=== PATIENT | female | born 1960 | race Caucasian/White ===

== ENCOUNTER 2019-05-27 13:36 | Observation (INO) ==
--- NOTE | 2019-05-27 14:12 | XRay Report ---
XR chest 1V portable CLINICAL HISTORY: Chest pain. COMPARISON STUDY: Chest radiograph January 15, 2016. FINDINGS: Lung volumes are normal. Lungs are clear. There is no pneumothorax or pleural effusion. Car diac size is normal. Mediastinal contours are normal. There is no evidence for pulmonary edema. IMPRESSION: No acute cardiopulmonary findings. Electronically signed by: Que Hutchinson M.D. 05/27/2019 2:10 PM
[2019-05-27 14:48] LABS: Alanine Aminotransferase 20 U/L (12-78); Albumin Level 4.1 gm/dl (3.4-5.0); Aspartate Aminotransferase 28 U/L (15-37); BUN Creatinine Ratio 10.7 (10-20); Blood Urea Nitrogen 9 mg/dl (7-18); Carbon Dioxide 23 mmol/L (21-32); Chloride 110 mmol/L (98-107); Creatinine Clr Calc Pharmacy 83.6 ml/min; Est GFR (Non-African American) 83.7; Glucose 95 mg/dl (70-99); Potassium 3.8 mmol/L (3.5-5.1); Sodium 142 mmol/L (136-145)
[2019-05-27 14:51] LABS: Anisocytosis Present; Basophils # (auto) 0.02 K/uL (0-0.2); Basophils % (auto) 0.5 %; Eosinophils # (auto) 0.09 K/uL (0-0.5); Eosinophils % (auto) 2.1 %; Hematocrit (blood only) 32.6 % (37-47); Hemoglobin 10.1 g/dL (12.0-16.0); Immature Granulocytes # (auto) 0.09 K/uL (0.00-0.02); Immature Granulocytes % (auto) 2.1 %; Lymphocytes # (auto) 1.25 K/uL (1.2-3.4); Lymphocytes % (auto) 29.8 %; Mean Corpuscular Volume 92.4 fL (80-100); Mean Platelet Volume 9.1 fL (7.4-10.4); Monocytes # (auto) 0.26 K/uL (0.11-0.59); Monocytes % (auto) 6.2 %; Neutrophils # (auto) 2.48 K/uL (1.4-6.5); Neutrophils % (auto) 59.3 %; Nucleated RBC # (auto) 0.06 K/uL (0-0); Nucleated RBC % (auto) 1.4 %; Platelet Count 64 K/uL (130-400); Platelet Estimate Decreased (Normal); Polychromasia 1+; RDW Coefficient of Variation 21.4 % (11.5-14.5); RDW Standard Deviation 72.5 fL (36.4-46.3); Red Blood Count 3.53 M/uL (4.2-5.4); Tear Drop Cells 1+; White Blood Count 4.19 K/uL (4.8-10.8)
[2019-05-27 14:55] LABS: Alkaline Phosphatase 99 U/L (45-117); Bilirubin,Total 3.9 mg/dl (0.2-1); Globulin 4.3 gm/dl (2.5-4.0); Total Protein 8.4 gm/dl (6.4-8.2); Troponin I < 0.015 ng/ml (0-0.045)
[2019-05-27 14:57] LABS: D Dimer 1000 ug/L FEU (0-500)
[2019-05-27] MEDS ORDERED: OPTIRAY 320 125ml IV PRN (15:25)
--- NOTE | 2019-05-27 15:49 | CT Scan Report ---
CT ANGIOGRAPHY OF THE CHEST, PULMONARY EMBOLUS PROTOCOL CLINICAL HISTORY: +dd and cp ekg change COMPARISON STUDY: Chest radiograph January 15, 2016 and May 27, 2019. TECHNIQUE: Following IV administration of 79 mL of Optiray-320, helical axial images of the chest wer e obtained utilizing the pulmonary embolus protocol. Maximal intensity projections and sagittal and coronal reformats were viewed on an independent 3D workstation. IV contrast was administered without complication. Automated exposure control was utilized for the study. A dose lowering technique was utilized adhering to the principles of ALARA. CT DOSE: 367.52 mGy.cm FINDINGS: No pulmonary emboli are identified. The central pulmonary arteries are mildly dilated. The re is mild dilatation of the right ventricle and apparent straightening of the interventricular septu m. Overall, the heart is mildly enlarged. There is no pericardial effusion. There is no thoracic aort ic dissection. No enlarged thoracic lymph nodes are present. Central airways are patent. No pneumotho rax or pleural effusion is noted. There is suspected mild centrilobular emphysema. Minimal right midd le lobe airspace opacity is noted with mild mucus plugging/bronchial wall thickening. A 3 mm right up per lobe nodule on image 239 of 298 is noted. There is a 4 mm left upper lobe nodule on image 239. Mario Alberto ny thorax is unremarkable. Borderline splenomegaly is noted. IMPRESSION: 1. No pulmonary emboli identified. 2. Mild dilatation of the central pulmonary arteries, mild dilatation of the right heart chambers and apparent straightening of the interventricular septum. These findings raise the possibility of pulmo nary arterial hypertension/elevated right heart pressure. 3. Minimal right middle lobe opacity with mucus plugging/bronchial wall thickening. This may reflect a mild infectious process. 4. A few tiny pulmonary nodules which are likely benign but can be followed according to the attached recommendations. Please refer to below summary of Fleischner criteria recommendations for follow-up of incidental CT n odules ([place], Guidelines for management of small pulmonary nodules detected on CT scans: A sta tement from the Fleischner Society, Radiology 237: [phone].) SOLID NODULES Solitary nodule size: <6 mm * low risk patients: no follow-up needed * high risk patients: optional CT at 12 months Solitary nodule size: 6-8 mm * low risk patients: follow-up at 6-12 months, then consider further follow-up at 18-24 months * high risk patients: initial follow-up CT at 6-12 months and then at 18-24 months if no change Solitary nodule size: >8 mm * either low or high risk patients - consider follow-up CT at 3 months, and/or CT-PET, and/or biopsy Multiple nodules size: <6 mm * low risk patients: no routine follow-up * high risk patients: optional CT at 12 months Multiple nodules size: 6-8 mm * low risk patients: follow-up at 3-6 months, then consider further follow-up at 18-24 months * high risk patients: follow-up at 3-6 months, then at 18-24 months if no change Multiple nodules size: >8 mm * low risk patients: follow-up at 3-6 months, then consider further follow-up at 18-24 months * high risk patients: follow-up at 3-6 months, then at 18-24 months if no change Note: newly detected indeterminate nodule in persons 35 years of age or older. * low risk patients: minimal or absent history of smoking and/or other known risk factors * high risk patients: history of smoking or of other known risk factors (e.g. first degree relative with lung cancer, or exposure to asbestos, radon, uranium) * if a nodule up to 8 mm is partly solid or is ground glass further follow-up is required after 24 m onths to exclude possible slow growing adenocarcinoma (YANIV) SUBSOLID NODULES Solitary pure ground-glass nodule * nodule size <6 mm - no CT follow-up required * nodule size >=6 mm - follow-up CT at 6-12 months, then every 2 years until 5 years Solitary part-solid nodule * nodule size <6 mm - no CT follow-up required * nodule size >=6 mm - follow-up CT at 3-6 months. If unchanged, and solid component remains <6 mm, then annual follow-up for 5 years Multiple subsolid nodules * nodule size <6 mm - follow-up CT at 3-6 months, consider further follow-up at 2 and 4 years if sta ble * nodule size >=6 mm - follow-up CT at 3-6 months, subsequent management based on the most suspiciou s nodule(s) Electronically signed by: Que Hutchinson M.D. 05/27/2019 3:47 PM
[2019-05-27] MEDS ORDERED: LEVOFLOXACIN/D5W 750 MG/150 ML BAG IV SCH (16:00)
--- NOTE | 2019-05-27 17:49 | Emergency Department Note ---
Entered by Armen Allen acting as a scribe for Simón Pitt DO History of Present Illness General Chief complaint: Cardiac Assessment Stated complaint: ABNORMAL EKG Source: patient History of Present Illness Provider complaint: flu like symtpoms Onset (ago): week(s) 1 Location: head Pain Consistency: + intermittent Maximum Pain Intensity: 0 Relieved By: + none Exacerbated By: + none Associated symptoms: + cough, + shortness of breath and + other (rhinorrhea, congestion, sore throat ) The patient is a 58 y/o female with a past medical history of smoking and anemia, who presents to the emergency department for evaluation of intermittent flu like symptoms for the past week. The patient that everything started with a cough about a week ago. She notes that it is not productive. She also has a sore throat, congestion and a runny nose for the past week. She notes that she has been getting slightly more short of breath as his symptoms have worsened slightly. She reports that her grandson had a runny nose and cough and is sick with same symptoms. The patient notes she was sent from [facility] to the ED for EKG concerns as she was seen by the outpatient provider. The patient denies any chest pain arm pain or jaw pain. He had no other previous EKGs to compare to. Home Medications Home Medications Medication Instructions Recorded Confirmed Type aspirin [Guera Aspirin] 325 mg PO DAILY PRN 05/27/19 05/27/19 History levofloxacin [Levaquin] 750 mg PO DAILY 10 Days #10 tab 05/27/19 Rx Allergies Allergy/AdvReac Type Severity Reaction Status Date / Time No Known Allergies Allergy Unverified 05/27/19 14:40 Past Med/Surg History Medical History Anemia Family History Other Hypertension Myocardial infarction Social History Feels Safe at Home: Yes Smoking Status: Current every day smoker Review of Systems See HPI for pertinent positives & negatives. and A total of 10 systems reviewed and were otherwise negative Physical Exam Vital Signs Vital Signs - 24 hr 05/27/19 13:39 05/27/19 14:00 05/27/19 14:01 Temperature 36.8 C Temperature Source Oral Sepsis Recent Fever Within 48 Hours No Sepsis New/Unexplained Change in Mental Status No Sepsis Action Taken by Nursing No Action Required Pulse Rate 88 76 76 Pulse Rate from SpO2 Sensor 76 76 Respiratory Rate 16 18 18 Blood Pressure 154/102 H 130/91 Blood Pressure Mean 119 104 Pulse Oximetry 98 98 98 Oxygen Delivery Method Room Air Room Air 05/27/19 14:30 05/27/19 15:00 05/27/19 15:26 Temperature Temperature Source Sepsis Recent Fever Within 48 Hours Sepsis New/Unexplained Change in Mental Status Sepsis Action Taken by Nursing Pulse Rate 76 70 80 Pulse Rate from SpO2 Sensor 76 71 78 Respiratory Rate 18 18 19 Blood Pressure 121/86 117/88 152/93 H Blood Pressure Mean 97 97 112 Pulse Oximetry 99 99 98 Oxygen Delivery Method 05/27/19 15:30 05/27/19 16:00 05/27/19 16:51 Temperature Temperature Source Sepsis Recent Fever Within 48 Hours Sepsis New/Unexplained Change in Mental Status Sepsis Action Taken by Nursing Pulse Rate 71 72 71 Pulse Rate from SpO2 Sensor 71 72 71 Respiratory Rate 19 19 22 Blood Pressure 132/90 131/88 125/88 Blood Pressure Mean 104 102 100 Pulse Oximetry 99 98 96 Oxygen Delivery Method 05/27/19 17:00 05/27/19 17:30 Temperature Temperature Source Sepsis Recent Fever Within 48 Hours Sepsis New/Unexplained Change in Mental Status Sepsis Action Taken by Nursing Pulse Rate 69 73 Pulse Rate from SpO2 Sensor 70 73 Respiratory Rate 18 18 Blood Pressure 127/90 124/85 Blood Pressure Mean 102 98 Pulse Oximetry 98 98 Oxygen Delivery Method GENERAL: Sitting up in bed, talking in full sentences, alert, well appearing, well nourished, no distress, non-toxic EYE EXAM: normal conjunctiva. OROPHARYNX: no exudate, no erythema, lips, buccal mucosa, and tongue normal and mucous membranes are moist NECK: supple, no nuchal rigidity, no adenopathy, non-tender LUNGS: Clear to auscultation. Normal chest wall mechanics HEART: no murmurs, S1 normal and S2 normal ABDOMEN: abdomen soft, non-tender, normo-active bowel sounds, no masses, no rebound or guarding. BACK: Back is symmetrical on inspection and there is no deformity, no midline tenderness, no CVA tenderness. SKIN: no rashes and no bruising UPPER EXTREMITIES: upper extremities are grossly normal. LOWER EXTREMITIES: No pitting edema. Calves equal bilaterally NEURO EXAM: Normal sensorium, cranial nerves II-XII grossly intact, normal speech, no gross weakness of arms, no gross weakness of legs. Course ED COURSE: Vital signs were reviewed and hypertensive The patients medical record was reviewed The above diagnostic studies were performed and reviewed. ED treatments and interventions as stated above. 1348: The patient was evaluated in room C01. A complete history and physical examination was performed. 1500: Patient was placed in observation. 1609: I spoke with Dr. Tolbert Cardiology. He feels the patient can go home and get an echo as an outpatient. 1621: I update the patient. She notes that her platelets are always low. 1623: I spoke with her Hodan Teetee Hernandez and updated her on the results and treatment plan. 1633: I spoke with the patient and she does not want to stay. 1800: Updated patient at bedside and with her complexity due to EKG changes, pneumonia and now a pancytopenia with a thrombocytopenia 67 recommended adm ission. Based on the patients age, coexisting illnesses, exam and lab findings the decision to treat as an inpatient was made. The patient remained stable while under my care. The patient appeared well at the time of discharge. Administered Medications Levofloxacin/Dextrose (Levaquin/D5w) 750 mg in 150 mls @ 100 mls/hr IV Q24H GEOFF Stop: 05/29/19 15:59 Last Infusion: 05/27/19 18:20 Dose: 0 mls/hr Documented by: [id number] Admin: 05/27/19 16:40 Dose: 100 mls/hr Documented by: [id number] Ioversol (Optiray 320 125ml) 79 ml IV ONCE PRN PRN Reason: Interaction Checking Stop: 05/31/19 15:24 Last Admin: 05/27/19 15:25 Dose: 79 ml Documented by: [id number] Medical Decision Making Differential Diagnosis Differential diagnosis: Etiologies such as infections, reactive airway disease, COPD, pneumonia, pleural effusion, pulmonary edema, ARDS, pneumothorax, CHF, cardiac ischemia, cardiac tamponade, dysrhythmia, anemia, pulmonary embolism, musculoskeletal, gastrointestinal process, as well as others were entertained. Medical Records Attestation: I reviewed the patient's medical records. Home Medications Current Medication List: was personally reviewed by me Laboratory Data Attestation: I reviewed the patient's lab results. Result diagrams: 05/27/19 14:21 05/27/19 14:21 Lab Results 05/27/19 05/27/19 05/27/19 Range/Units 14:21 14:21 14:21 WBC 4.19 L (4.8-10.8) K/uL RBC 3.53 L (4.2-5.4) M/uL Hgb 10.1 L (12.0-16.0) g/dL Hct 32.6 L (37-47) % MCV 92.4 (80-100) fL MCH 28.6 (25-34) pg MCHC 31.0 L (32-36) g/dL RDW Std Deviation 72.5 H (36.4-46.3) fL RDW Coeff of Dalia 21.4 H (11.5-14.5) % Plt Count 64 L (130-400) K/uL MPV 9.1 (7.4-10.4) fL Immature Gran % (Auto) 2.1 % Neut % (Auto) 59.3 % Lymph % (Auto) 29.8 % Preston % (Auto) 6.2 % Eos % (Auto) 2.1 % Baso % (Auto) 0.5 % Immature Gran # (Auto) 0.09 H (0.00-0.02) K/uL Neut # (Auto) 2.48 (1.4-6.5) K/uL Lymph # (Auto) 1.25 (1.2-3.4) K/uL Preston # (Auto) 0.26 (0.11-0.59) K/uL Eos # (Auto) 0.09 (0-0.5) K/uL Baso # (Auto) 0.02 (0-0.2) K/uL Absolute Nucleated RBC 0.06 H (0-0) K/uL Nucleated RBC % (auto) 1.4 % Platelet Estimate Decreased L (Normal) Polychromasia 1+ Anisocytosis Present Tear Drop Cells 1+ D-Dimer 1000 H* (0-500) ug/L FEU Sodium 142 (136-145) mmol/L Potassium 3.8 (3.5-5.1) mmol/L Chloride 110 H (98-107) mmol/L Carbon Dioxide 23 (21-32) mmol/L Anion Gap 9.0 (3-11) BUN 9 (7-18) mg/dl Creatinine 0.79 (0.6-1.2) mg/dl Est Cr Clr Drug Dosing 83.6 ml/min Est GFR ( Amer) 97.0 Est GFR (Non-Af Amer) 83.7 BUN/Creatinine Ratio 10.7 (10-20) Glucose 95 (70-99) mg/dl Calcium 9.0 (8.5-10.1) mg/dl Total Bilirubin 3.9 H (0.2-1) mg/dl AST 28 (15-37) U/L ALT 20 (12-78) U/L Alkaline Phosphatase 99 (45-117) U/L Troponin I < 0.015 (0-0.045) ng/ml Total Protein 8.4 H (6.4-8.2) gm/dl Albumin 4.1 (3.4-5.0) gm/dl Globulin 4.3 H (2.5-4.0) gm/dl Albumin/Globulin Ratio 1.0 (0.9-2) Lipase 185 (73-393) U/L Influenza Type A Ag (Neg) Influenza Type B Ag (Neg) 05/27/19 05/27/19 Range/Units 14:21 16:33 WBC (4.8-10.8) K/uL RBC (4.2-5.4) M/uL Hgb (12.0-16.0) g/dL Hct (37-47) % MCV (80-100) fL MCH (25-34) pg MCHC (32-36) g/dL RDW Std Deviation (36.4-46.3) fL RDW Coeff of Dalia (11.5-14.5) % Plt Count (130-400) K/uL MPV (7.4-10.4) fL Immature Gran % (Auto) % Neut % (Auto) % Lymph % (Auto) % Preston % (Auto) % Eos % (Auto) % Baso % (Auto) % Immature Gran # (Auto) (0.00-0.02) K/uL Neut # (Auto) (1.4-6.5) K/uL Lymph # (Auto) (1.2-3.4) K/uL Preston # (Auto) (0.11-0.59) K/uL Eos # (Auto) (0-0.5) K/uL Baso # (Auto) (0-0.2) K/uL Absolute Nucleated RBC (0-0) K/uL Nucleated RBC % (auto) % Platelet Estimate (Normal) Polychromasia Anisocytosis Tear Drop Cells D-Dimer (0-500) ug/L FEU Sodium (136-145) mmol/L Potassium (3.5-5.1) mmol/L Chloride (98-107) mmol/L Carbon Dioxide (21-32) mmol/L Anion Gap (3-11) BUN (7-18) mg/dl Creatinine (0.6-1.2) mg/dl Est Cr Clr Drug Dosing ml/min Est GFR ( Amer) Est GFR (Non-Af Amer) BUN/Creatinine Ratio (10-20) Glucose (70-99) mg/dl Calcium (8.5-10.1) mg/dl Total Bilirubin (0.2-1) mg/dl AST (15-37) U/L ALT (12-78) U/L Alkaline Phosphatase (45-117) U/L Troponin I < 0.015 (0-0.045) ng/ml Total Protein (6.4-8.2) gm/dl Albumin (3.4-5.0) gm/dl Globulin (2.5-4.0) gm/dl Albumin/Globulin Ratio (0.9-2) Lipase (73-393) U/L Influenza Type A Ag Neg for Influ A (Neg) Influenza Type B Ag Neg for Influ B (Neg) Imaging Data Radiologist's Impression: Radiology results as stated below per my review and the radiologist's interpretation: XR chest 1V portable CLINICAL HISTORY: Chest pain. COMPARISON STUDY: Chest radiograph January 15, 2016. FINDINGS: Lung volumes are normal. Lungs are clear. There is no pneumothorax or pleural effusion. Cardiac size is normal. Mediastinal contours are normal. There is no evidence for pulmonary edema. IMPRESSION: No acute cardiopulmonary findings. Electronically signed by: Que Hutchinson M.D. 05/27/2019 2:[address] ANGIOGRAPHY OF THE CHEST, PULMONARY EMBOLUS PROTOCOL CLINICAL HISTORY: +dd and cp ekg change COMPARISON STUDY: Chest radiograph January 15, 2016 and May 27, 2019. TECHNIQUE: Following IV administration of 79 mL of Optiray-320, helical axial images of the chest were obtained utilizing the pulmonary embolus protocol. Maximal intensity projections and sagittal and coronal reformats were viewed on an independent 3D workstation. IV contrast was administered without complication. Automated exposure control was utilized for the study. A dose lowering technique was utilized adhering to the principles of ALARA. CT DOSE: 367.52 mGy.cm FINDINGS: No pulmonary emboli are identified. The central pulmonary arteries are mildly dilated. There is mild dilatation of the right ventricle and apparent straightening of the interventricular septum. Overall, the heart is mildly enlarged. There is no pericardial effusion. There is no thoracic aortic dissection. No enlarged thoracic lymph nodes are present. Central airways are patent. No pneumothorax or pleural effusion is noted. There is suspected mild centrilobular emphysema. Minimal right middle lobe airspace opacity is noted with mild mucus plugging/bronchial wall thickening. A 3 mm right upper lobe nodule on image 239 of 298 is noted. There is a 4 mm left upper lobe nodule on image 239. Bony thorax is unremarkable. Borderline splenomegaly is noted. IMPRESSION: 1. No pulmonary emboli identified. 2. Mild dilatation of the central pulmonary arteries, mild dilatation of the right heart chambers and apparent straightening of the interventricular septum. These findings raise the possibility of pulmonary arterial hypertension/elevated right heart pressure. 3. Minimal right middle lobe opacity with mucus plugging/bronchial wall thickening. This may reflect a mild infectious process. 4. A few tiny pulmonary nodules which are likely benign but can be followed according to the attached recommendations. Please refer to below summary of Fleischner criteria recommendations for follow- up of incidental CT nodules ([place], Guidelines for management of small pulmonary nodules detected on CT scans: A statement from the Fleischner Society, Radiology 237: [phone].) SOLID NODULES Solitary nodule size: <6 mm * low risk patients: no follow-up needed * high risk patients: optional CT at 12 months Solitary nodule size: 6-8 mm * low risk patients: follow-up at 6-12 months, then consider further follow-up at 18-24 months * high risk patients: initial follow-up CT at 6-12 months and then at 18-24 months if no change Solitary nodule size: >8 mm * either low or high risk patients - consider follow-up CT at 3 months, and/or CT-PET, and/or biopsy Multiple nodules size: <6 mm * low risk patients: no routine follow-up * high risk patients: optional CT at 12 months Multiple nodules size: 6-8 mm * low risk patients: follow-up at 3-6 months, then consider further follow-up at 18-24 months * high risk patients: follow-up at 3-6 months, then at 18-24 months if no change Multiple nodules size: >8 mm * low risk patients: follow-up at 3-6 months, then consider further follow-up at 18-24 months * high risk patients: follow-up at 3-6 months, then at 18-24 months if no change Note: newly detected indeterminate nodule in persons 35 years of age or older. * low risk patients: minimal or absent history of smoking and/or other known risk factors * high risk patients: history of smoking or of other known risk factors (e.g. first degree relative with lung cancer, or exposure to asbestos, radon, uranium) * if a nodule up to 8 mm is partly solid or is ground glass further follow-up is required after 24 months to exclude possible slow growing adenocarcinoma (YANIV) SUBSOLID NODULES Solitary pure ground-glass nodule * nodule size <6 mm - no CT follow-up required * nodule size >=6 mm - follow-up CT at 6-12 months, then every 2 years until 5 years Solitary part-solid nodule * nodule size <6 mm - no CT follow-up required * nodule size >=6 mm - follow-up CT at 3-6 months. If unchanged, and solid com ponent remains <6 mm, then annual follow-up for 5 years Multiple subsolid nodules * nodule size <6 mm - follow-up CT at 3-6 months, consider further follow-up at 2 and 4 years if stable * nodule size >=6 mm - follow-up CT at 3-6 months, subsequent management based on the most suspicious nodule(s) Electronically signed by: Que Hutchinson M.D. 05/27/2019 3:47 PM ECG Data Attestation: I personally reviewed and interpreted this ECG as follows: Indication: other (abnormal EKG) Rate (beats per minute): 80 Rhythm: sinus rhythm Findings: + other (normal axis) and + T-wave inversion (Anterior, inferior, lateral) Comparison ECG Date: no prior available Blood Pressure Blood Pressure Findings: Elevated blood pressure Blood Pressure Disposition: Referred to patients primary care provider CURTIS Narrative Patient is a 58-year-old female with a past medical history of normocytic anemia, thrombocytopenia and splenomegaly. She was seen by outpatient acute care clinic as she was having cough, congestion, runny nose sore throat and felt short of breath. Iliana Smith obtained an EKG and noticed a T WI in the anterior and lateral leads. No old to compare to. Discussed patient having shortness of breath and this EKG with Oscar Garcia who recommended transfer to the ER. Upon presentation to the ER she denies any chest pain. Vitals are stable. IV was established blood work was obtained and showed a mild leukopenia at 4.1 thousand. Hemoglobin was slightly low at 10. There was a thrombocytopenia at 64. D-dimer was positive at 1000. BMP was unremarkable. T bili was elevated at 3.9. No significant transaminitis. Troponin was negative x2. Lipase is unremarkable. Influenza was negative. CT of the chest shows elevated right-sided heart pressures. Right-sided infiltrate as well which was small. Discussed my findings in the EKG with Dr. Lester who noted with the EKG and the CT findings on with a negative troponin patient can follow-up as an outpatient for an echo and does not need to be admitted. Updated the patient at bedside. Reviewed notes of her palliative care nurse practitioner/oncologist who she has seen before in the past it was recommended to have a bone marrow biopsy but she never followed up this past October which she did not. As she does not have a primary care physician having her get in for an echo, repeat blood work and following up with hematology oncology I felt like at this time is a stretch with her pneumonia. Consequently I did discuss case with the hospitalist for observation secondary to pancytopenia with thrombocytopenia of 65, pneumonia and EKG changes and lack of a PCP. Impression & Plan Pneumonia, Abnormal ECG, Thrombocytopenia, Pancytopenia Discharge Plan Visit Data Chief Complaint: Cardiac Assessment Stated Complaint: ABNORMAL EKG ED Provider: Simón Pitt Discharge Problem: Pneumonia, Abnormal ECG, Thrombocytopenia, Pancytopenia Patient Disposition: Home - Self-Care Discharge Instructions Juan Carlos/Other Patient Handouts: ED Pneumonia Activity Restrictions/Additional Instructions: Please follow up with your primary care doctor with in the next 24 hours. Any worsening of your symptoms, please return to the ED immediately. This includes any fevers greater than 100.4, worsening pain, chest pain, shortness breath, persistent nausea, vomiting, unable to eat or drink, or any other concerning signs or symptoms from your standpoint. You are found to have a pancytopenia which included low platelets. This needs to be followed up by hematology oncology as discussed and Hodan Fleming within the next 24 hours. I also discussed with her in having an echo performed as an outpatient as directed by our [employer] here. He will also need to follow-up with hematology oncology due to the the diffuse pancytopenia found. Forms Stand Alone Forms: My [facility], Important Visit Information Prescriptions Prescriptions: New levofloxacin [Levaquin] 750 mg tablet 750 mg PO DAILY 10 Days Qty: 10 RF: 0 No Action aspirin [Guera Aspirin] 325 mg Tablet 325 mg PO DAILY PRN (Reason: Pain) RF: 0 Referrals Referrals: Maxine Kingsley PA-C [Primary Care Provider] - Anthony Ritchie MD [Hospitalist] - Discharge Problem: Pneumonia Qualifiers: Pneumonia type: due to unspecified organism Laterality: unspecified laterality Lung location: unspecified part of lung Qualified Code(s): J18.9 - Pneumonia, unspecified organism The scribe's documentation has been prepared under my direction and personally reviewed by me in its entirety. I confirm that the note above accurately reflects all work, treatment, procedures, and medical decision making performed by me.
--- NOTE | 2019-05-27 20:05 | History & Physical Report ---
Date of Service May 27, 2019 Assessment & Plan (1) Pneumonia: (2) URI, acute: This is a 58 yr of female who has a significant PMH of Anxiety, Anemia, Thrombocytopenia, +GENI who presents to [facility] ED at recommendation of outside provider due to ill feeling and ECG changes. Pt with URI sx and cough x 1-[address] chest concerning for R middle lobe opacity, bronchial wall thickening She is afebrile, wbc 4.19, pt is nontoxic appearing Received IV levaquin 750mg while in ED admit to med/surg tele given concern for ecg changes continue levaquin 750 for possible PNA albuterol neb tx/incentive spirometry recommend follow up CT as outpt given pulm nodules in 12 months further work up as noted below (3) Abnormal ECG: ecg with t wave inversions v3-6 pt w/o chest pain or rise in troponin will cycle troponin obtain echocardiogram in am low index of suspicion for cardiac ischemia (4) Anemia: H/H stable at 10.1 and 32.6 follow no s/sx of bleeding (5) Thrombocytopenia: plt ct 64 not new has seen HEME in past, recommendation was for bone marrow bx given overt pancytopenia check anaplasma given worsening of plt, no confirmed tick bites (6) Elevated bilirubin: Tbili 3.9, direct 0.6 Abd U/S mild enlargement in spleen check retic count, ldh (7) Pulmonary nodules: 3mm RUL; 4mm GILDARDO recommend 12 mon follow up per criteria given high risk (8) Tobacco abuse: defers nicotine patch smoking education advised Disposition: if cardiac work up negative likely discharge on oral antibiotics tomorrow Follow up: recommend routine follow up with PCP Dr. Lund upon discharge, along with follow up Heme Onc Discussed with patient importance to follow up with HEME and their recommendations for bone marrow bx given anemia, thrombocytopenia and now likely overt pancytopenia Further encouraged patient to partake in routine cancer screenings with colonoscopy and mammogram which have not been done. Patient was seen and examined in collaboration with Dr. Browne, please see addendum History of Present Illness Chief Complaint: URI sx x 1 week Primary Care Provider: Maxine Kingsley PA-C This is a 58 yr of female who has a significant PMH of Anxiety, Anemia, Thrombocytopenia, +GENI who presents to [facility] ED at recommendation of outside provider due to ill feeling and ECG changes. Pt PCP is Love Lund; however she has not been seen for routine follow ups, but mostly acute care. She was seen today by CLARIBEL 2/2 sinus congestion, cough, AGUILAR, pain in upper back feeling feverish x 1 week. At this visit an ecg was performed which revealed t wave inversions V3-6 and was recommended to seek ED for evaluation. Currently patient is sitting at bedside and is present. She complains of having sinus congestion with purulent discharge, sore throat, moist cough but unable to produce, shortness with exertion x1 week. She has intermittent feeling of being feverish and chills but has not checked her temperature. History of pneumonia, "every 3 to 4 years." Denies any lightheadedness, dizziness, syncope, but does elicit to getting off and on vertigo. Denies any rylan chest pain, palpitations, hemoptysis, shortness with at rest, nausea, vomiting, diarrhea, melena, hematochezia, dysuria, increased urgency or frequency with urination, hematuria, vaginal bleeding. Patient is menopausal and has not had any post menopausal bleeding. Of significance patient has not had any significant or consistent routine primary care follow-up. She does have a known anemia and pancytopenia in which she has been seen by Dr. Gonzalez in September 2018. Recommend bone marrow bx, colonoscopy and mammogram for appropriate screening. Pt has not followed up with this. Also seen by rheumatology due to complaints of fatigue and arthralgias along with + GENI. [place] not likely to be related to rheumatologic process abnormal testing was supporting scleroderma diagnosis but pt without symptoms consistent with this. Was deferred back to hematology but lost to follow up. Allergies Allergy/AdvReac Type Severity Reaction Status Date / Time No Known Allergies Allergy Unverified 05/27/19 14:40 Home Medications Home Medications Medication Instructions Recorded Confirmed Type aspirin [Guera Aspirin] 325 mg PO DAILY PRN 05/27/19 05/27/19 History levofloxacin [Levaquin] 750 mg PO DAILY 10 Days #10 tab 05/27/19 Rx Past Med/Surg History Medical History Tobacco abuse Thrombocytopenia Pulmonary nodules Anxiety Anemia Surgical History History of tubal ligation History of D&C Family History Mother Alzheimer disease Coronary heart disease CABG in 70s Father Coronary heart disease CABG in 70s Other Hypertension Myocardial infarction Social History Preferred Language: Chadian Communication Ability: Effective marital status: Current Living Situation: Spouse Feels Safe at Home: Yes Smoking Status: Current every day smoker packs per day: 10 ; Years Smoked: 20 ; Hx Alcohol Use: No Hx Substance Use: No Review of Systems Review of Systems: All systems reviewed & are unremarkable except as noted in HPI & below Physical Exam Physical Exam: Constitutional: WD/WN, vitals as above, NAD, sitting up in bed, pleasant, conversing easily Head: Normocephalic, Atraumatic Eyes: PERRL, conjunctivae normal, anicteric sclerae ENMT: external ear and nose normal, oropharynx normal Neck: trachea midline, no thyromegaly normal visual inspection Respiratory: normal respiratory effort, lungs clear to auscultation, no wheeze, rales, rhonchi. Normal insp/exp effort, no accessory muscle use Cardiovascular: RRR, no murmur, no edema Vessels: no JVD or carotid bruit Chest: normal inspection of chest Abdomen: normal bowel sounds, soft, nontender, no hepatosplenomegaly Musculoskeletal: no cyanosis or clubbing, extremities motor strength 5/5 Skin: no rashes, warm and dry normal turgor Neurologic: PERRL, EOMI, accommodation nl, no face palsy, no dysarthria CN's II-XI intact bilaterally and moves all extremities Psychiatric: A+Ox3, euthymic affect Lymphatic: no cervical or axillary lymphadenopathy : deferred Results & Data Vital Signs (Past 12 Hours) Vital Signs Temp Pulse Resp BP Pulse Ox 05/27/19 19:00 74 19 154/95 H 97 05/27/19 18:30 76 18 147/98 H 99 05/27/19 18:00 72 14 117/87 98 05/27/19 17:30 73 18 124/85 98 05/27/19 17:00 69 18 127/90 98 05/27/19 16:51 71 22 125/88 96 05/27/19 16:00 72 19 131/88 98 05/27/19 15:30 71 19 132/90 99 05/27/19 15:26 80 19 152/93 H 98 05/27/19 15:00 70 18 117/88 99 05/27/19 14:30 76 18 121/86 99 05/27/19 14:01 76 18 130/91 98 05/27/19 14:00 76 18 98 05/27/19 13:39 36.8 C 88 16 154/102 H 98 Laboratory Results Short CBC 05/27/19 Range/Units 14:21 WBC 4.19 L (4.8-10.8) K/uL Hgb 10.1 L (12.0-16.0) g/dL Hct 32.6 L (37-47) % Plt Count 64 L (130-400) K/uL BMP 05/27/19 14:21 Sodium 142 Potassium 3.8 Chloride 110 H Carbon Dioxide 23 BUN 9 Creatinine 0.79 Glucose 95 Calcium 9.0 Cardiac Enzymes 05/27/19 05/27/19 Range/Units 14:21 16:33 Troponin I < 0.015 < 0.015 (0-0.045) ng/ml Liver Function 05/27/19 05/27/19 Range/Units 14:21 14:21 Total Bilirubin 3.9 H (0.2-1) mg/dl Direct Bilirubin 0.6 H (0-0.2) mg/dl AST 28 (15-37) U/L ALT 20 (12-78) U/L Alkaline Phosphatase 99 (45-117) U/L Albumin 4.1 (3.4-5.0) gm/dl Diagnostic Findings Chest CTA: IMPRESSION: 1. No pulmonary emboli identified. 2. Mild dilatation of the central pulmonary arteries, mild dilatation of the right heart chambers and apparent straightening of the interventricular septum. These findings raise the possibility of pulmonary arterial hypertension/elevated right heart pressure. 3. Minimal right middle lobe opacity with mucus plugging/bronchial wall thickening. This may reflect a mild infectious process. 4. A few tiny pulmonary nodules which are likely benign but can be followed according to the attached recommendations. CXR: IMPRESSION: No acute cardiopulmonary findings. RUQ U/S IMPRESSION: 1. No cholelithiasis or biliary ductal dilatation. 2. Mild splenomegaly. 3. Possible left pleural effusion. Medications Administered Levofloxacin/Dextrose (Levaquin/D5w) 750 mg in 150 mls @ 100 mls/hr IV Q24H GEOFF Stop: 05/29/19 15:59 Last Infusion: 05/27/19 18:20 Dose: 0 mls/hr Documented by: [id number] Admin: 05/27/19 16:40 Dose: 100 mls/hr Documented by: [id number] Ioversol (Optiray 320 125ml) 79 ml IV ONCE PRN PRN Reason: Interaction Checking Stop: 05/31/19 15:24 Last Admin: 05/27/19 15:25 Dose: 79 ml Documented by: [id number] ECG Rate (beats per minute): 80 Rhythm: normal sinus Findings: + T-wave inversion (V3-6) Code Status & VTE Plan Code Status Full Code VTE Prophylaxis Plan VTE Prophylaxis will be ordered: No Supervising Physician Co-Signing Physician Notes I have seen and assessed the patient with physician clinical education assistant and agree with the assessment and plan as above and would like to comment that Patient has been placed under observation after experiencing respiratory symptoms for which she was evaluated at outpatient center and then because of abnormal EKG findings she was sent to the ER and patient was told by outpatient center that she wa sat risk of "heart attack" however patient denies chest pain, and when evaluated by the emergency room physician, the emergency room physicia n concerned for abnormal EKG and suspected pneumonia in context of thrombocytopenia that ED physician recommended to patient hospitalization. On exam General: no acute distress Lungs: clear to auscultation bilaterally Heart: regular rate and rhythm Abdomen: soft, nontender, positive bowel sounds Extremities: no edema The role of this observation stay mostly to rule acute acute or chronic myocard ial infarction given abnormal T waves seen in anterior lateral leads. Troponins to be trended to rule out acute cardiac event and echocardiogram can be done to assess overall ejection fraction and rule out wall motion abnormalities. The CTA chest on this presentation show the possibility of pulmonary arterial hypertension/elevated right heart pressure and this can be better assessed by echocardiogram. There is Minimal right middle lobe opacity with mucus plugging/bronchial wall thickening and this may reflect a mild infectious (pulmonary) process such as pneumonia. Continue oral antibiotic as no large focal lung consolidations. There are A few tiny pulmonary nodules which are 3 to 4 mm in size and because of patient's history of tobacco use,s he may benefit from CT scan in 1 year however the CTA impressions deem these nodules to be likely benign. Chart review shows that patient has history of low platelet counts and her thrombocytopenia which is unusual does not appear to be acutely dangerous. abdomen imaging does not reveal acute process for elevated bilirubin otherwise agree with assessment and plan as documented by physician clinical education assistant for medical issues Patient will be followed by my colleague Dr. Sheppard starting on 05/28/19 (1) Pneumonia Laterality: unspecified laterality Lung location: unspecified part of lung Pneumonia type: due to unspecified organism Qualified Code(s): J18.9 - Pneumonia, unspecified organism
--- NOTE | 2019-05-27 20:19 | Ultrasound Report ---
US abdomen limited CLINICAL HISTORY: 58 years-old Female presenting with anemia, elevated bili - look at Liver and Splee n. TECHNIQUE: Real-time grayscale and limited color Doppler ultrasound imaging of the abdomen limited to the right upper quadrant was performed. COMPARISON: Correlation made to chest x-ray performed earlier the same day.. FINDINGS: Pancreas: Visualized portions of the pancreatic head and body normal. Liver: Normal echogenicity and echotexture. The liver measures 14.2 cm in maximal sagittal dimension. No sonographic evidence of hepatic mass. Main portal vein patent with normal directional flow. Biliary: No intrahepatic biliary ductal dilatation. Common bile duct measures up to 3 mm in diameter. Gallbladder: No evidence of gallstones, gallbladder wall thickening, gallbladder distention, or peric holecystic fluid or inflammatory change. Sonographic Copeland's sign negative. Right kidney: Normal in appearance without evidence of hydronephrosis. Ascites: None. Other: Mild enlargement of the spleen, which measures 14 cm in maximal sagittal dimension. Possible l eft pleural effusion. IMPRESSION: 1. No cholelithiasis or biliary ductal dilatation. 2. Mild splenomegaly. 3. Possible left pleural effusion. Electronically signed by: Emiliano Terry M.D. 05/27/2019 8:18 PM
[2019-05-27 20:57] LABS: Reticulocyte % 3.1 % (0.5-2.0); Reticulocytes # 0.11 10^6/uL (0.02-0.10)
[2019-05-27] MEDS ORDERED: MAGNESIUM HYDROXIDE SUSP 30 ML UDC PO PRN (20:59)
[2019-05-27] MEDS ORDERED: ACETAMINOPHEN 325 MG TAB PO PRN (20:59)
[2019-05-27] MEDS ORDERED: ALUMINUM/MAGNESIUM SUSP 30 ML UDC PO PRN (20:59)
[2019-05-27] MEDS ORDERED: POLYETHYLENE (MIRALAX) 17 GM PACK PO PRN (20:59)
[2019-05-27] MEDS ORDERED: NITROGLYCERIN SL 0.4 MG/TAB TAB SL PRN (20:59)
[2019-05-27] MEDS: ALBUTEROL 0.083% NEBU SOLN 3 ML VIAL NEB SCH (21:39)
[2019-05-28 02:19] LABS: Hemoglobin 9.4 g/dL (12.0-16.0); Mean Corpuscular Hgb Conc 31.3 g/dL (32-36); Mean Corpuscular Volume 93.5 fL (80-100); Nucleated RBC # (auto) 0.09 K/uL (0-0); Nucleated RBC % (auto) 2.4 %; RDW Coefficient of Variation 21.3 % (11.5-14.5); RDW Standard Deviation 72.8 fL (36.4-46.3); Red Blood Count 3.21 M/uL (4.2-5.4); White Blood Count 3.79 K/uL (4.8-10.8)
[2019-05-28 02:24] LABS: Mean Platelet Volume 8.8 fL (7.4-10.4); Platelet Count 54 K/uL (130-400)
[2019-05-28 02:37] LABS: Alanine Aminotransferase 18 U/L (12-78); Albumin Level 3.5 gm/dl (3.4-5.0); Aspartate Aminotransferase 24 U/L (15-37); BUN Creatinine Ratio 12.6 (10-20); Blood Urea Nitrogen 13 mg/dl (7-18); Calcium 8.4 mg/dl (8.5-10.1); Carbon Dioxide 24 mmol/L (21-32); Chloride 109 mmol/L (98-107); Creatinine Clr Calc Pharmacy 62.9 ml/min; Est GFR (African American) 68.8; Est GFR (Non-African American) 59.3; Glucose 93 mg/dl (70-99); Potassium 4.1 mmol/L (3.5-5.1); Sodium 141 mmol/L (136-145)
[2019-05-28 02:44] LABS: Albumin Globulin Ratio 0.9 (0.9-2); Alkaline Phosphatase 81 U/L (45-117); Bilirubin,Total 3.1 mg/dl (0.2-1); Chol HDL Ratio 6; Cholesterol 177 mg/dl (0-200); Globulin 3.8 gm/dl (2.5-4.0); HDL Cholesterol 31 mg/dl; LDL Cholesterol Calculated 95 mg/dl; Total Protein 7.3 gm/dl (6.4-8.2); Triglycerides 253 mg/dl (0-150); Troponin I < 0.015 ng/ml (0-0.045); VLDL Cholesterol 51 mg/dl
[2019-05-28 05:56] LABS: Estimated Average Glucose 97 mg/dl
[2019-05-28] MEDS: ALBUTEROL 0.083% NEBU SOLN 3 ML VIAL NEB SCH ×2 (07:18→13:26)
[2019-05-28] MEDS ORDERED: levoFLOXacin 750 MG TAB PO SCH (11:00)
--- NOTE | 2019-05-28 16:54 | Hospitalist Progress Note ---
Date of Service May 28, 2019 Assessment & Plan (1) Pneumonia: (2) URI, acute: Was seen at PCP office for URI and Was sent to the hospital for abnormal EKG that was done in the office CT chest concerning for R middle lobe opacity, bronchial wall thickening Afebrile and no leukocytosis Received IV levaquin 750mg while in ED Will complete the course of levaquin Continue albuterol neb tx/incentive spirometry Recommend follow up CT as outpt given pulm nodules in 12 months Clinically stable (3) Abnormal ECG: Was done from PCP office Denies any history of chest pain Troponin x 3 negative ECHO showed no wall motion abnormality with EF 55-60% Clinically stable (4) Anemia: Hgb 9.4 today no s/sx of bleeding Will need to monitor cbc Will need outpatient workup (5) Thrombocytopenia: Platelet 64 today Has seen HEME in past, recommendation was for bone marrow bx given overt pancytopenia Peripheral smear showed blast and schistocytes, no inclusion anaplasmosis Follow up with oncology Monitor CBC (6) Elevated bilirubin: Abd U/S showed no cholelithiasis or biliary ductal dilatation. Bilirubin slightly decreased AST/ALT and ALK normal Continue monitor (7) Pulmonary nodules: 3mm RUL; 4mm GILDARDO Recommend 12 months follow up per criteria given high risk (8) Tobacco abuse: Counseling on smoking cessation Disposition Follow up with hematology Follow up with your primary care provider (already had an appointment for Friday Further encouraged patient to do routine cancer screenings with colonoscopy and mammogram which have not been done. Subjective Pt was seen and examined Sitting at the edge of the bed with at bedside She said that she feels fine She is very anxious to go home today She said that she does not have any chest pain She said that she feels less congested Denies any chest pain, palpitation and SOB Physical Exam Physical Exam: General- No acute distress Head- atraumatic Eyes- PERRL, EOMI, ENT- oropharynx clear Neck- supple, no JVD Lungs- clear to auscultation Heart- regular rhythm; no murmur Abdomen- normal bowel sounds, soft, nontender Extremities- no calf tenderness Neuro- alert, oriented x 3; PERRL, EOMI; no facial palsy; no dysarthria Skin- warm & dry Results & Data Vital Signs (Past 12 Hours) Vital Signs Temp Pulse Pulse Resp BP Pulse Ox 05/28/19 15:38 36.8 C 82 18 119/80 93 05/28/19 13:26 78 16 96 05/28/19 12:08 37.1 C 67 16 112/77 97 05/28/19 08:01 36.7 C 62 16 104/70 98 05/28/19 07:20 66 05/28/19 07:19 81 16 98 (1) Pneumonia Laterality: unspecified laterality Lung location: unspecified part of lung Pneumonia type: due to unspecified organism Qualified Code(s): J18.9 - Pneumonia, unspecified organism
--- NOTE | 2019-05-29 08:47 | Discharge Summary ---
Date of Service May 28, 2019 Admission HPI Per Admitting Provider This is a 58 yr of female who has a significant PMH of Anxiety, Anemia, Thrombocytopenia, +GENI who presents to [facility] ED at recommendation of outside provider due to ill feeling and ECG changes. Pt PCP is Love Lund; however she has not been seen for routine follow ups, but mostly acute care. She was seen today by PA-C 2/2 sinus congestion, cough, AGUILAR, pain in upper back feeling feverish x 1 week. At this visit an ecg was performed which revealed t wave inversions V3-6 and was recommended to seek ED for evaluation. Currently patient is sitting at bedside and is present. She complains of having sinus congestion with purulent discharge, sore throat, moist cough but unable to produce, shortness with exertion x1 week. She has intermittent feeling of being feverish and chills but has not checked her temperature. History of pneumonia, "every 3 to 4 years." Denies any lightheadedness, dizziness, syncope, but does elicit to getting off and on vertigo. Denies any rylan chest pain, palpitations, hemoptysis, shortness with at rest, nausea, vomiting, diarrhea, melena, hematochezia, dysuria, increased urgency or frequency with urination, hematuria, vaginal bleeding. Patient is menopausal and has not had any post menopausal bleeding. Of significance patient has not had any significant or consistent routine primary care follow-up. She does have a known anemia and pancytopenia in which she has been seen by Dr. Gonzalez in September 2018. Recommend bone marrow bx, colonoscopy and mammogram for appropriate screening. Pt has not followed up with this. Also seen by rheumatology due to complaints of fatigue and arthralgias along with + GENI. [place] not likely to be related to rheumatologic process abnormal testing was supporting scleroderma diagnosis but pt without symptoms consistent with this. Was deferred back to hematology but lost to follow up. Admission Exam Per Admitting Provider Constitutional: WD/WN, vitals as above, NAD, sitting up in bed, pleasant, conversing easily Head: Normocephalic, Atraumatic Eyes: PERRL, conjunctivae normal, anicteric sclerae ENMT: external ear and nose normal, oropharynx normal Neck: trachea midline, no thyromegaly normal visual inspection Respiratory: normal respiratory effort, lungs clear to auscultation, no wheeze, rales, rhonchi. Normal insp/exp effort, no accessory muscle use Cardiovascular: RRR, no murmur, no edema Vessels: no JVD or carotid bruit Chest: normal inspection of chest Abdomen: normal bowel sounds, soft, nontender, no hepatosplenomegaly Musculoskeletal: no cyanosis or clubbing, extremities motor strength 5/5 Skin: no rashes, warm and dry normal turgor Neurologic: PERRL, EOMI, accommodation nl, no face palsy, no dysarthria CN's II-XI intact bilaterally and moves all extremities Psychiatric: A+Ox3, euthymic affect Lymphatic: no cervical or axillary lymphadenopathy : deferred Principal Diagnosis Upper respiratory infection Pulmonary nodule abnormal EKG Anemia Thrombocytopenia Tobacco abuse Discharge Exam General- No acute distress Head- atraumatic Eyes- PERRL, EOMI, ENT- oropharynx clear Neck- supple, no JVD Lungs- clear to auscultation Heart- regular rhythm; no murmur Abdomen- normal bowel sounds, soft, nontender Extremities- no calf tenderness Neuro- alert, oriented x 3; PERRL, EOMI; no facial palsy; no dysarthria Skin- warm & dry Discharge Data Allergies Allergy/AdvReac Type Severity Reaction Status Date / Time No Known Allergies Allergy Unverified 05/27/19 14:40 Consultations 05/27/19 18:43 ED Decision to Admit Stat Ordered Studies 05/27/19 15:08 CT angio chest PE protocol Stat 05/27/19 19:32 US abdomen limited Routine US abdomen limited CLINICAL HISTORY: 58 years-old Female presenting with anemia, elevated bili - look at Liver and Spleen. TECHNIQUE: Real-time grayscale and limited color Doppler ultrasound imaging of the abdomen limited to the right upper quadrant was performed. COMPARISON: Correlation made to chest x-ray performed earlier the same day.. FINDINGS: Pancreas: Visualized portions of the pancreatic head and body normal. Liver: Normal echogenicity and echotexture. The liver measures 14.2 cm in maximal sagittal dimension. No sonographic evidence of hepatic mass. Main portal vein patent with normal directional flow. Biliary: No intrahepatic biliary ductal dilatation. Common bile duct measures up to 3 mm in diameter. Gallbladder: No evidence of gallstones, gallbladder wall thickening, gallbladder distention, or pericholecystic fluid or inflammatory change. Sonographic Copeland's sign negative. Right kidney: Normal in appearance without evidence of hydronephrosis. Ascites: None. Other: Mild enlargement of the spleen, which measures 14 cm in maximal sagittal dimension. Possible left pleural effusion. IMPRESSION: 1. No cholelithiasis or biliary ductal dilatation. 2. Mild splenomegaly. 3. Possible left pleural effusion. Electronically signed by: Emiliano Terry M.D. 05/27/2019 8:18 PM Dictated: 05/27/192015 Transcribed: 05/27/192015 CT ANGIOGRAPHY OF THE CHEST, PULMONARY EMBOLUS PROTOCOL CLINICAL HISTORY: +dd and cp ekg change COMPARISON STUDY: Chest radiograph January 15, 2016 and May 27, 2019. TECHNIQUE: Following IV administration of 79 mL of Optiray-320, helical axial images of the chest were obtained utilizing the pulmonary embolus protocol. Maximal intensity projections and sagittal and coronal reformats were viewed on an independent 3D workstation. IV contrast was administered without complication. Automated exposure control was utilized for the study. A dose lowering technique was utilized adhering to the principles of ALARA. CT DOSE: 367.52 mGy.cm FINDINGS: No pulmonary emboli are identified. The central pulmonary arteries are mildly dilated. There is mild dilatation of the right ventricle and apparent straightening of the interventricular septum. Overall, the heart is mildly enlarged. There is no pericardial effusion. There is no thoracic aortic dissection. No enlarged thoracic lymph nodes are present. Central airways are patent. No pneumothorax or pleural effusion is noted. There is suspected mild centrilobular emphysema. Minimal right middle lobe airspace opacity is noted with mild mucus plugging/bronchial wall thickening. A 3 mm right upper lobe nodule on image 239 of 298 is noted. There is a 4 mm left upper lobe nodule on image 239. Bony thorax is unremarkable. Borderline splenomegaly is noted. IMPRESSION: 1. No pulmonary emboli identified. 2. Mild dilatation of the central pulmonary arteries, mild dilatation of the right heart chambers and apparent straightening of the interventricular septum. These findings raise the possibility of pulmonary arterial hypertension/elevated right heart pressure. 3. Minimal right middle lobe opacity with mucus plugging/bronchial wall thickening. This may reflect a mild infectious process. 4. A few tiny pulmonary nodules which are likely benign but can be followed according to the attached recommendations. Please refer to below summary of Fleischner criteria recommendations for follow- up of incidental CT nodules ([place], Guidelines for management of small pulmonary nodules detected on CT scans: A statement from the Fleischner Society, Radiology 237: [phone].) SOLID NODULES Solitary nodule size: <6 mm * low risk patients: no follow-up needed * high risk patients: optional CT at 12 months Solitary nodule size: 6-8 mm * low risk patients: follow-up at 6-12 months, then consider further follow-up at 18-24 months * high risk patients: initial follow-up CT at 6-12 months and then at 18-24 months if no change Solitary nodule size: >8 mm * either low or high risk patients - consider follow-up CT at 3 months, and/or CT-PET, and/or biopsy Multiple nodules size: <6 mm * low risk patients: no routine follow-up * high risk patients: optional CT at 12 months Multiple nodules size: 6-8 mm * low risk patients: follow-up at 3-6 months, then consider further follow-up at 18-24 months * high risk patients: follow-up at 3-6 months, then at 18-24 months if no change Multiple nodules size: >8 mm * low risk patients: follow-up at 3-6 months, then consider further follow-up at 18-24 months * high risk patients: follow-up at 3-6 months, then at 18-24 months if no change Note: newly detected indeterminate nodule in persons 35 years of age or older. * low risk patients: minimal or absent history of smoking and/or other known risk factors * high risk patients: history of smoking or of other known risk factors (e.g. first degree relative with lung cancer, or exposure to asbestos, radon, uranium) * if a nodule up to 8 mm is partly solid or is ground glass further follow-up is required after 24 months to exclude possible slow growing adenocarcinoma (YANIV) SUBSOLID NODULES Solitary pure ground-glass nodule * nodule size <6 mm - no CT follow-up required * nodule size >=6 mm - follow-up CT at 6-12 months, then every 2 years until 5 years Solitary part-solid nodule * nodule size <6 mm - no CT follow-up required * nodule size >=6 mm - follow-up CT at 3-6 months. If unchanged, and solid component remains <6 mm, then annual follow-up for 5 years Multiple subsolid nodules * nodule size <6 mm - follow-up CT at 3-6 months, consider further follow-up at 2 and 4 years if stable * nodule size >=6 mm - follow-up CT at 3-6 months, subsequent management based on the most suspicious nodule(s) Electronically signed by: Que Huthcinson M.D. 05/27/2019 3:47 PM Dictated: 05/27/19 1536 XR chest 1V portable CLINICAL HISTORY: Chest pain. COMPARISON STUDY: Chest radiograph January 15, 2016. FINDINGS: Lung volumes are normal. Lungs are clear. There is no pneumothorax or pleural effusion. Cardiac size is normal. Mediastinal contours are normal. There is no evidence for pulmonary edema. IMPRESSION: No acute cardiopulmonary findings. Electronically signed by: Que Hutchinson M.D. 05/27/2019 2:10 PM Dictated: 05/27/19 1410 Transcribed: 05/27/19 1410 Hospital Course (1) Pneumonia: (2) URI, acute: Was seen at PCP office for URI and Was sent to the hospital for abnormal EKG that was done in the office CT chest concerning for R middle lobe opacity, bronchial wall thickening Afebrile and no leukocytosis Received IV levaquin 750mg while in ED Will complete the course of levaquin Continue albuterol neb tx/incentive spirometry Recommend follow up CT as outpt given pulm nodules in 12 months Clinically stable (3) Abnormal ECG: Was done from PCP office Denies any history of chest pain Troponin x 3 negative ECHO showed no wall motion abnormality with EF 55-60% Clinically stable (4) Anemia: Hgb 9.4 today no s/sx of bleeding Will need to monitor cbc Will need outpatient workup (5) Thrombocytopenia: Platelet 64 today Has seen HEME in past, recommendation was for bone marrow bx given overt pancytopenia Peripheral smear showed blast and schistocytes, no inclusion anaplasmosis Follow up with oncology Monitor CBC (6) Elevated bilirubin: Abd U/S showed no cholelithiasis or biliary ductal dilatation. Bilirubin slightly decreased AST/ALT and ALK normal Continue monitor (7) Pulmonary nodules: 3mm RUL; 4mm GILDARDO Recommend 12 months follow up per criteria given high risk (8) Tobacco abuse: Counseling on smoking cessation Disposition Follow up with hematology Follow up with your primary care provider (already had an appointment for Friday Further encouraged patient to do routine cancer screenings with colonoscopy and mammogram which have not been done. Total Time Total Time Spent Total Time Spent (In Minutes): 35 minutes Total Time Includes: Examination of the Patient, Discharge Planning, Medication Reconciliation, Communication With Other Providers and Other Discharge Plan Discharge Items Patient Disposition: Home - Self-Care Reason For Visit: SOB,ABN ECG Discharge Diagnosis: Upper respiratory infection Pulmonary nodule abnormal EKG Anemia Thrombocytopenia Tobacco abuse Activity: Resume your previous activity Activity Comment: As tolerated Non-emergency contact: Primary Care Provider Call non-emergency contact if: you have any medication questions and your temperature is above 101 Follow-up/Referrals: Maxine Kingsley PA-C [Primary Care Provider] - Diet: Regular Addtl Attending Provider Instructions: Follow up with your primary care provider (already had an appointment for Friday) Follow up with hematology to continue work up for anemia Further encouraged patient to do routine cancer screenings with colonoscopy and mammogram which have not been done. Recommend follow up with CT chest in 12 months per criteria given high risk Counseling on smoking cessation Check CBC within 1 week to monitor platelet and hemoglobin Avoid any NSAID such as( aspirin, aleve, advil, naproxen, motrin, ibuprofen, ...) due to low platelet that increases risk of bleeding Complete course of antibiotic Pending Studies at Discharge: Yes Studies:: Anaplasma DNA pending (Checked due to the low platelet) Stand-Alone Forms: My [facility] Medications and DC Order Prescriptions: New levofloxacin 750 mg Tablet 750 mg PO DAILY@1100 5 Days Qty: 5 RF: 0 Discontinued aspirin [Guera Aspirin] 325 mg Tablet 325 mg PO DAILY PRN (Reason: Pain) RF: 0 Discharge Orders: Discharge Order (Routine); Ordered 05/28/19 Ordered By: Pepe Sheppard Admission Data Admit Date/Time: 05/27/19 19:32 Attending Provider: Pepe Sheppard Admit Provider: Bebeto Browne Primary Care Provider: Maxine Kingsley Other Providers: Bebeto Browne Other Interventions: Discharge Summary Assessment (RN) Last Done: 05/28/19 18:23 DC Date/Time DO NOT enter until pt leaves facility: 05/28/19 18:42
== END 2019-05-28 18:42 | disposition home or self-care (01) ==
LOC: 2N 13:36 → ED 13:36 → 2N 20:34

== ENCOUNTER 2023-12-10 10:05 | Inpatient (IN) ==
--- NOTE | 2023-12-10 10:45 | Emergency Department Note ---
Impression & Plan Chest pain, Abnormal EKG, Elevated troponin I level, Hyperbilirubinemia, Anemia ED Provider Note NAME: TANA ALCALA AGE: 63 SEX: F : 1960 ARRIVES VIA: Walk-In INFORMANT: Patient, ED PROVIDER(S): Bull Murray DO CHIEF COMPLAINT: Chest pain HPI: The patient is a 63-year-old female who presented to the emergency department for an evaluation of chest pain. The patient states that she had upper respiratory symptoms over the course the last few weeks. She was treated with a antibiotic as well as an inhaler. The patient states that she continues to have difficulty breathing and left-sided back pain. She denies having any lower extremity swelling or pain. She has had no recent trauma. She denies having any fever or hemoptysis. She presented to the emergency department today for further evaluation. ROS: See above HPI for pertinent positives & negatives. A total of 10 systems reviewed and were otherwise negative. PAST MEDICAL HISTORY: See Below PAST SURGICAL HISTORY: See Below FAMILY HISTORY: See Below SOCIAL HISTORY: See Below HOME MEDICATIONS: See Below ALLERGIES: See Below VITALS: See Below PHYSICAL EXAMINATION: GENERAL: The patient is awake but somewhat listless. The patient does not appear to be in pain. EYES: The conjunctivae are icteric. The pupils are round and reactive. EARS, NOSE, MOUTH AND THROAT: The nose is without any evidence of any deformity. RESPIRATORY: Normal respiratory effort is noted there is no evidence of wheezing rhonchi or rales CARDIOVASCULAR: Regular rate and rhythm noted there no murmurs rubs or gallops normal S1 normal S2. GASTROINTESTINAL: The abdomen is soft. Abdomen is nontender. MUSCULOSKELETAL/EXTREMITIES: There is no evidence of gross deformity full range of motion is noted in the hips and shoulders. SKIN: There is no obvious evidence of any rash. There are no petechiae, pallor or cyanosis noted. NEUROLOGIC: Patient is awake and oriented x3 strength is symmetric patellar reflexes are 2+ bilaterally MEDICAL DECISION MAKING: The patient is a 63-year-old female who presented to the emergency department for an evaluation of shortness of breath and chest pain. The patient describes chest pain and left-sided back pain. She states the pain is somewhat worsened with exertion as well as deep breathing. The patient was found to be icteric. The patient was not hypoxic or tachycardic. Patient's EKG showed significant abnormalities including diffuse ST depression which were new compared to a previous tracing. I discussed the patient's laboratory and radiographic studies with her. Because of her findings I discussed her condition with the on-call [facility] hospitalist. They have agreed to evaluate the patient in the emergency department for further management and disposition. The patient was treated with aspirin in the emergency department. Given her other findings especially her liver issues she was also given Protonix. Triage Nursing notes reviewed. Prior medical records reviewed Vital Signs: reviewed and remarkable for no significant abnormalities Differential diagnosis: Cardiac ischemia, aortic dissection, pulmonary embolism, pneumothorax, pneumonia, pericarditis, myocarditis, esophageal rupture, GERD, cholecystitis, pancreatitis, musculoskeletal, as well as other pathologies. ER treatment provided: See below Diagnostics interpreted by me: ECG: EKG was obtained in the emergency department. My interpretation is normal sinus rhythm at 85 bpm. There is no ectopy. ST depression was noted in the inferior and low lateral leads. This was compared to a tracing from September 19, 2020. The ST abnormalities are new compared to previous tracing. Cardiac Monitoring: An order was placed for continuous cardiac monitoring. The monitor shows a rate of 89 bpm with sinus rhythm. Laboratory studies: As stated above and show below. Imaging studies: See below. Radiographic imaging was reviewed by myself Consultation(s): I discussed this case with Valentina who is on-call for the [facility] hospitalist group. Past Med/Surg History Medical History SOB (shortness of breath) on exertion Pulmonary hypertension F/U WITH PULM MEDICINE AT [facility]- DR CRUZ DUMONT AND DR MAYO (CARDIO [facility]) Tobacco abuse Thrombocytopenia Seen by [facility] heme - platelets and H&H stable per 03/20/20 office note Pulmonary nodules Anxiety Anemia Surgical History Nausea and vomiting after administration of anesthetic agent History of tubal ligation History of D&C Family History Mother Coronary heart disease CABG in 70s Alzheimer disease Father Coronary heart disease CABG in 70s Family history of diabetes mellitus Brother Family history of diabetes mellitus Other Hypertension Myocardial infarction Social History Smoking Status: Never smoker packs per day: 10; Cigarettes Per Day: 10; Second Hand Exposure: Yes; Do You Dip or Chew Tobacco: No; Hx Alcohol Use: No Hx Substance Use: No Preferred Language: Vietnamese Communication Ability: Effective Payment Collector Required: No Beliefs That Will Affect Care: None marital status: Current Living Situation: Spouse Feels Safe at Home: Yes Assistive Devices: Glasses Allergies Allergies Allergy/AdvReac Type Severity Reaction Status Date / Time No Known Allergies Allergy Verified 08/05/23 22:23 Home Meds Home Medications Medication Instructions Recorded Confirmed furosemide 20 mg tablet (Lasix) 20 mg PO QAM 08/09/20 08/05/23 potassium chloride 20 mEq 20 meq PO QAM 08/09/20 08/05/23 tablet,extended release sildenafil (pulm.hypertension) 20 20 mg PO TID 08/09/20 08/05/23 mg tablet ambrisentan 10 mg tablet 10 mg PO DAILY 09/19/20 08/05/23 Balance Of Nature Vitamin 1 dose PO DAILY 08/05/23 08/05/23 acetaminophen 650 mg 1,300 mg PO DIRECTED PRN Pain 08/05/23 08/05/23 tablet,extended release (Tylenol Arthritis Pain) albuterol sulfate 2.5 mg/3 mL 2.5 mg inhalation DIRECTED PRN 08/05/23 08/05/23 (0.083 %) solution for nebulization Shortness Of Breath Or Wheezing fluticasone propionate 50 2 spray intranasal DAILY PRN 08/05/23 08/05/23 mcg/actuation nasal Congestion spray,suspension Results & Data (ED) Vital Signs Vital Signs - 24 hr 12/10/23 10:11 12/10/23 10:56 12/10/23 12:15 Temperature 36.6 C 36.4 C L Temperature Source Temporal Artery Scan Oral Pulse Rate 78 89 Pulse Rate [Right Finger] 74 Pulse Rhythm [Right Finger] Regular Respiratory Rate 20 20 Respiratory Effort / Characteristics Non-Labored Non-Labored Spontaneous Respiratory Depth Normal Normal Respiratory Pattern Regular Blood Pressure 105/65 Blood Pressure [Left Arm] 107/67 Blood Pressure Mean 78 Blood Pressure Mean [Left Arm] 80 Blood Pressure Position [Left Arm] Semi-fowlers Pulse Oximetry 100 96 Oxygen Delivery Method Room Air Room Air Sepsis Recent Fever Within 48 Hours No Sepsis New/Unexplained Change in Mental Status No Sepsis Action Taken by Nursing No Action Required Home Medications Current Medication List: was personally reviewed by me Laboratory Data Attestation: I reviewed the patient's lab results. 12/10/23 10:45 12/10/23 10:45 Lab Results 12/10/23 12/10/23 Range/Units 10:45 11:16 WBC 5.08 (4.8-10.8) K/ul RBC 3.48 L (4.20-5.40) M/uL Hgb 8.9 L (12.0-16.0) g/dl Hct 31.3 L (37.0-47.0) % MCV 89.9 (80.0-100.0) fL MCH 25.6 (25.0-34.0) pg MCHC 28.4 L (32.0-36.0) g/dL RDW Std Deviation 75.7 H (36.4-46.3) fL RDW Coeff of Dalia 24.0 H (11.5-14.5) % Plt Count 103 L (130-400) K/uL Immature Gran % (Auto) 0.6 % Neut % (Auto) 54.3 % Lymph % (Auto) 35.4 % [place] % (Auto) 6.5 % Eos % (Auto) 2.2 % Baso % (Auto) 1.0 % Neut # (Auto) 2.76 (1.40-6.50) K/uL Lymph # (Auto) 1.80 (1.20-3.40) K/uL [place] # (Auto) 0.33 (0.11-0.59) K/uL Eos # (Auto) 0.11 (0.00-0.50) K/uL Baso # (Auto) 0.05 (0.00-0.20) K/uL Immature Gran # (Auto) 0.03 (0.01-0.20) K/uL Absolute Nucleated RBC 0.08 (0.00-0.12) K/uL Nucleated RBC % (auto) 1.6 % Polychromasia 1+ Anisocytosis Present Tear Drop Cells 1+ PT 11.6 (9.0-12.0) Seconds INR 1.1 (0.9-1.1) APTT 31 (21-31) Seconds PTT Ratio 1.1 D-Dimer 1120 H* (0-500) ug/L FEU VBG pH 7.42 H (7.36-7.41) VBG pCO2 29 L (38-50) mmHg VBG pO2 27 mmHg VBG HCO3 19 mmol/L VBG O2 Saturation < 60.0 % VBG Base Excess -5.0 mEq/L Sodium 136 (136-145) mmol/L Potassium 3.9 (3.5-5.1) mmol/L Chloride 105 (98-107) mmol/L Carbon Dioxide 19 L (21-32) mmol/L Anion Gap 12 H (3-11) BUN 14 (6-23) mg/dl Creatinine 1.16 (0.6-1.2) mg/dl Est Cr Clr Drug Dosing 54.0 ml/min Est GFR ( Amer) 58.9 ml/min Est GFR (Non-Af Amer) 50.8 ml/min BUN/Creatinine Ratio 12.1 (10-20) Glucose 105 H (70-99(Fasting)) mg/dl Calcium 9.4 (8.6-10.3) mg/dl Total Bilirubin 12.6 H (0.2-1.0) mg/dl Direct Bilirubin 1.2 H (0-0.2) mg/dl AST 67 H (13-39) U/L ALT 51 (7-52) U/L Alkaline Phosphatase 177 H (34-104) U/L Ammonia TNP Troponin I High Sens 35.2 H (0-14) pg/ml Total Protein 7.8 (6.0-8.3) gm/dl Albumin 4.1 (3.4-5.0) gm/dl Globulin 3.7 (2.5-4.0) gm/dl Albumin/Globulin Ratio 1.1 (0.9-2) Administered Medications Discontinued Medications Ioversol (Optiray 350 500ml) 111 ml IV ONCE ONE Stop: 12/10/23 11:48 Last Admin: 12/10/23 11:47 Dose: 111 ml Documented By: APURVA Imaging Data Attestation: I personally reviewed and interpreted this imaging study as follows: My Impression: 1 view chest x-ray was obtained in the emergency department. My interpretation is no free air or definite infiltrate, final report below. CT of the abdomen was obtained. My interpretation is no signs of bowel obstruction or free air, final report below. CT of the chest was obtained in the emergency department. My interpretation is no definite filtrate, final report below. Radiologist's Impression: Chest X-Ray 12/10/23 10:15 XR chest 1V portable CLINICAL HISTORY: Chest pain, nonspecific COMPARISON STUDY: Chest radiograph September 19, 2020. Chest CT May 27, 2019. FINDINGS: There is no pneumothorax or pleural effusion. Pulmonary vascularity is normal. There is no consolidation. Moderate cardiomegaly is noted. Bilateral hilar prominence is likely due to dilated central pulmonary arteries. IMPRESSION: 1. No acute cardiopulmonary findings. 2. Cardiomegaly. 3. Dilated central pulmonary arteries. This raises the possibility of pulmonary arterial hypertension. ACT 112: Negative or not required by law. Electronically signed by: Que Hutchinson M.D. 12/10/2023 11:00 AM Abdomen/Pelvis CT 12/10/23 11:00 CT OF THE ABDOMEN AND PELVIS WITH CONTRAST CLINICAL HISTORY: Jaundice. COMPARISON STUDY: CT of the abdomen and pelvis August 05, 2023. TECHNIQUE: Following IV administration of 111 mL of Optiray, axial images of the abdomen and pelvis were obtained from the lung bases to the proximal femurs. Images were reviewed in the axial, sagittal, and coronal planes. IV contrast was administered without complication. Automated exposure control was utilized for the study. A dose lowering technique was utilized adhering to the principles of ALARA. CT DOSE: 2962.71 mGy.cm FINDINGS: Please note that the chest CT will be reported separately. Cardiomegaly, dilated right heart chambers and dilated central pulmonary arteries are better depicted on that exam. No pneumatosis, free air or portal venous gas is present. The IVC and hepatic veins are dilated. Nodularity of the liver surface is noted. Multiple subcentimeter hypodense hepatic lesions favor cysts. Sensitivity for detection of hypervascular liver lesions is diminished on this exam. The main, left and right portal veins are somewhat diminutive but patent. The adrenal glands and pancreas are unremarkable. There is no biliary or pancreatic ductal dilatation. Spleen is moderately enlarged. There is moderate gallbladder wall thickening. There are tiny gallstones within the gallbladder. The gallbladder is not distended. Periportal edema is noted. Hepatic arteries are prominent. Retroperitoneal collaterals are present. There is trace fluid within the pelvis. There is no evidence for a bowel obstruction. The appendix is normal. Water attenuation renal lesions reflect cysts. There is an indeterminate 1.2 cm lesion arising from the lower pole the left kidney which measures above water attenuation. This could reflect a complex cyst or small solid renal lesion. Bilateral renal calculi measure up to 5 mm. There are no ureteral calculi. There is no hydronephrosis. The endometrium appears thickened, measuring approximately 1.6 cm in thickness. There is no lymphadenopathy. Subtle small skeletal lesions are noted. These are most evident within the sacrum. A mild fracture of the superior endplate of L4 is new since CT of August 05, 2023. IMPRESSION: 1. Cirrhotic liver with evidence of portal hypertension including moderate splenomegaly and varices formation. Trace fluid within the pelvis. Although not definitive, the CT findings raise the possibility of a cardiac etiology for cirrhosis. 2. Small gallstones within the gallbladder. Moderate gallbladder wall thickening without gallbladder distention. The gallbladder wall thickening is nonspecific although not highly suggestive of acute cholecystitis. This could be related to liver disease/portal hypertension. No biliary or pancreatic ductal dilatation. 3. Numerous subtle skeletal lesions. Although these may be metabolic, findings are suspicious for myeloma or metastatic disease. Oncology consultation is recommended. 4. Thickened endometrium. Nonemergent pelvic ultrasound correlation with postmenopausal bleeding is recommended. 5. Bilateral nephrolithiasis. No ureteral calculi. No hydronephrosis. Indeterminate 1.2 cm left lower pole renal lesion. 6. Mild fracture of the superior endplate of L4. This is age indeterminate but new since CT of August 05, 2023. ACT 112: Positive. There are findings on this exam that require communication between the performing entity and the patient following Patient Test Result Information Act ([place] Act 112) guidelines. Electronically signed by: Que Hutchinson M.D. 12/10/2023 12:25 PM Chest CTA 12/10/23 11:00 CT ANGIOGRAM OF THE CHEST CLINICAL HISTORY: Change in mental status. Jaundice. COMPARISON STUDY: Chest CT dated 05/27/2019. Chest x-ray dated 12/10/2023. TECHNIQUE: Following the IV administration of 111 cc of Optiray 350, CT angiogram of the chest was performed from the upper abdomen to the thoracic inlet utilizing the pulmonary embolus protocol. Images are reviewed in the axial, sagittal, and coronal planes. 3-D MIPS images are created and assessed. IV contrast was administered without complication. A dose lowering technique was utilized adhering to the principles of ALARA. FINDINGS: Thyroid: Imaged portions of the thyroid gland are normal in size and attenuation. Thoracic aorta: The thoracic aorta is normal in caliber and demonstrates standard 3-vessel arch anatomy. The thoracic aorta is not well-opacified. Pulmonary vasculature: The pulmonary trunk is markedly dilated, measuring 4.2 cm diameter. This indicates pulmonary artery hypertension. There are no filling defects identified in main, lobar, or segmental pulmonary branches to suggest pulmonary embolus. Heart: The heart is markedly enlarged and without pericardial effusion. The coronary arteries are densely calcified. Lungs and pleural spaces: There is no airspace consolidation or pleural effusion. The trachea and central airways are clear. Scattered calcified granulomas are observed. Foci of scarring/atelectasis are noted throughout both lungs. Mediastinum: There is no mediastinal lymphadenopathy. Gladys: Clear. Axillae: There is no axillary lymphadenopathy. Upper abdomen: A small hiatal hernia is noted. The liver is cirrhotic in morphology and heterogeneous attenuation with nodularity of the surface contour. The spleen is enlarged. Foci of cortical scarring are seen in the upper pole of the left kidney. Nonobstructive calculi in the upper pole of both kidneys measure up to 6 mm. There are calcified gallstones. Pericholecystic infiltration is nonspecific and may be related to portal hypertension/adjacent hepatocellular disease. Skeletal structures: The skeletal structures are heterogeneously osteopenic. Subtle sclerotic foci/lesions are seen throughout the bony structures, most apparent in the sternum. IMPRESSION: 1. There is no evidence of pulmonary embolus in the main, lobar, or segmental pulmonary arteries. 2. Marked cardiomegaly with evidence of pulmonary artery hypertension. 3. There is no airspace consolidation or pleural effusion. 4. Cirrhotic liver morphology and splenomegaly. See report of abdominal CT performed concurrently for detailed intra-abdominal findings. 5. Subtle sclerotic foci are seen throughout the visualized bony structures. These are nonspecific, and although this could potentially be on a metabolic basis, bony metastatic disease is not excluded. Correlate for any oncological history. 6. Additional findings as above. ACT 112: Negative or not required by law. Electronically signed by: Caden Mueller M.D. 12/10/2023 12:[address] 12/10/23 11:00 CT OF THE HEAD WITHOUT CONTRAST CLINICAL HISTORY: Altered mental status. COMPARISON STUDY: Head CT January 15, 2016. TECHNIQUE: Helical axial images of the head were obtained without IV contrast. Automated exposure control was utilized for the study. A dose lowering technique was utilized adhering to the principles of ALARA. FINDINGS: No acute intracranial hemorrhage, midline shift or mass effect is present. The ventricular system is unremarkable. The basal cisterns are patent. No extra-axial collections are present. There are no findings to suggest acute dural sinus thrombosis or acute territorial infarct. No significant calvarial abnormalities are present. Visualized portions of the sinuses and mastoid air cells are clear. IMPRESSION: No acute intracranial findings. ACT 112: Negative or not required by law. Electronically signed by: Que Hutchinson M.D. 12/10/2023 12:08 PM Discharge Plan Visit Data Chief Complaint: Shortness of Breath/Dyspnea Stated Complaint: SOB ED Provider: Bull Murray Discharge Problem: Chest pain, Abnormal EKG, Elevated troponin I level, Hyperbilirubinemia, Anemia Patient Disposition: Being Evaluated by Hospitalist Forms Stand Alone Forms: My [facility] Prescriptions Prescriptions: No Action ambrisentan 10 mg tablet 10 mg PO DAILY furosemide [Lasix] 20 mg Tablet 20 mg PO QAM sildenafil (pulm.hypertension) 20 mg Tablet 20 mg PO TID potassium chloride 20 mEq Tablet Extended Release 20 meq PO QAM albuterol sulfate 2.5 mg /3 mL (0.083 %) Solution For Nebulization 2.5 mg INHALATION DIRECTED PRN (Reason: Shortness Of Breath Or Wheezing) acetaminophen [Tylenol Arthritis Pain] 650 mg Tablet Extended Release 1,300 mg PO DIRECTED PRN (Reason: Pain) fluticasone propionate [Flonase] 50 mcg/actuation [place],Suspension 2 spray INTRANASAL DAILY PRN (Reason: Congestion) Rx Instructions: administer into each nostril Balance Of Nature Vitamin 1 dose PO DAILY Referrals Referrals: Sarah Galaviz DO [Primary Care Provider] - Discharge Problem: Chest pain Qualifiers: Chest pain type: unspecified Qualified Code(s): R07.9 - Chest pain, unspecified Anemia Qualifiers: Anemia type: unspecified type Qualified Code(s): D64.9 - Anemia, unspecified
--- NOTE | 2023-12-10 11:03 | XRay Report ---
XR chest 1V portable CLINICAL HISTORY: Chest pain, nonspecific COMPARISON STUDY: Chest radiograph September 19, 2020. Chest CT May 27, 2019. FINDINGS: There is no pneumothorax or pleural effusion. Pulmonary vascularity is normal. There is no consolidation. Moderate cardiomegaly is noted. Bilateral hilar prominence is likely due to dilated ce ntral pulmonary arteries. IMPRESSION: 1. No acute cardiopulmonary findings. 2. Cardiomegaly. 3. Dilated central pulmonary arteries. This raises the possibility of pulmonary arterial hypertension . ACT 112: Negative or not required by law. Electronically signed by: Que Hutchinson M.D. 12/10/2023 11:00 AM
[2023-12-10 11:27] LABS: HCO3 VBG 19 mmol/L; Oxygen Saturation VBG < 60.0 %; PCO2 VBG 29 mmHg (38-50); PO2 VBG 27 mmHg; pH VBG 7.42 (7.36-7.41)
[2023-12-10 11:33] LABS: Albumin Globulin Ratio 1.1 (0.9-2); Albumin Level 4.1 gm/dl (3.4-5.0); BUN Creatinine Ratio 12.1 (10-20); Bilirubin Direct 1.2 mg/dl (0-0.2); Bilirubin,Total 12.6 mg/dl (0.2-1.0); Calcium 9.4 mg/dl (8.6-10.3); Est GFR (African American) 58.9 ml/min; Est GFR (Non-African American) 50.8 ml/min; Globulin 3.7 gm/dl (2.5-4.0); Potassium 3.9 mmol/L (3.5-5.1); Total Protein 7.8 gm/dl (6.0-8.3)
[2023-12-10 11:39] LABS: Troponin I High Sensitivity 35.2 pg/ml (0-14)
[2023-12-10 11:46] LABS: Hematocrit (blood only) 31.3 % (37.0-47.0); Hemoglobin 8.9 g/dl (12.0-16.0); Mean Corpuscular Hemoglobin 25.6 pg (25.0-34.0); Mean Corpuscular Hgb Conc 28.4 g/dL (32.0-36.0); Mean Corpuscular Volume 89.9 fL (80.0-100.0); Nucleated RBC # (auto) 0.08 K/uL (0.00-0.12); Nucleated RBC % (auto) 1.6 %; Platelet Count 103 K/uL (130-400); RDW Standard Deviation 75.7 fL (36.4-46.3); Red Blood Count 3.48 M/uL (4.20-5.40); White Blood Count 5.08 K/ul (4.8-10.8)
[2023-12-10] MEDS: OPTIRAY 350 500ml IV ONE (11:47)
[2023-12-10 11:59] LABS: Anisocytosis Present; Basophils # (auto) 0.05 K/uL (0.00-0.20); Eosinophils # (auto) 0.11 K/uL (0.00-0.50); Eosinophils % (auto) 2.2 %; Immature Granulocytes # (auto) 0.03 K/uL (0.01-0.20); Immature Granulocytes % (auto) 0.6 %; Lymphocytes % (auto) 35.4 %; Monocytes # (auto) 0.33 K/uL (0.11-0.59); Monocytes % (auto) 6.5 %; Neutrophils # (auto) 2.76 K/uL (1.40-6.50); Neutrophils % (auto) 54.3 %; Polychromasia 1+; Tear Drop Cells 1+
[2023-12-10 12:00] LABS: INR 1.1 (0.9-1.1); Partial Thromboplastin Ratio 1.1; Partial Thromboplastin Time 31 Seconds (21-31); Prothrombin Time 11.6 Seconds (9.0-12.0)
--- NOTE | 2023-12-10 12:09 | CT Scan Report ---
CT OF THE HEAD WITHOUT CONTRAST CLINICAL HISTORY: Altered mental status. COMPARISON STUDY: Head CT January 15, 2016. TECHNIQUE: Helical axial images of the head were obtained without IV contrast. Automated exposure con trol was utilized for the study. A dose lowering technique was utilized adhering to the principles o f ALARA. FINDINGS: No acute intracranial hemorrhage, midline shift or mass effect is present. The ventricular system is unremarkable. The basal cisterns are patent. No extra-axial collections are present. There are no findings to suggest acute dural sinus thrombosis or acute territorial infarct. No significant calvarial abnormalities are present. Visualized portions of the sinuses and mastoid air cells are rik ar. IMPRESSION: No acute intracranial findings. ACT 112: Negative or not required by law. Electronically signed by: Que Hutchinson M.D. 12/10/2023 12:08 PM
[2023-12-10 12:10] LABS: D Dimer 1120 ug/L FEU (0-500)
--- NOTE | 2023-12-10 12:27 | CT Scan Report ---
CT ANGIOGRAM OF THE CHEST CLINICAL HISTORY: Change in mental status. Jaundice. COMPARISON STUDY: Chest CT dated 05/27/2019. Chest x-ray dated 12/10/2023. TECHNIQUE: Following the IV administration of 111 cc of Optiray 350, CT angiogram of the chest was pe rformed from the upper abdomen to the thoracic inlet utilizing the pulmonary embolus protocol. Images are reviewed in the axial, sagittal, and coronal planes. 3-D MIPS images are created and assessed. I V contrast was administered without complication. A dose lowering technique was utilized adhering to the principles of ALARA. FINDINGS: Thyroid: Imaged portions of the thyroid gland are normal in size and attenuation. Thoracic aorta: The thoracic aorta is normal in caliber and demonstrates standard 3-vessel arch anato my. The thoracic aorta is not well-opacified. Pulmonary vasculature: The pulmonary trunk is markedly dilated, measuring 4.2 cm diameter. This indic ates pulmonary artery hypertension. There are no filling defects identified in main, lobar, or segmen jason pulmonary branches to suggest pulmonary embolus. Heart: The heart is markedly enlarged and without pericardial effusion. The coronary arteries are den sely calcified. Lungs and pleural spaces: There is no airspace consolidation or pleural effusion. The trachea and jessica tral airways are clear. Scattered calcified granulomas are observed. Foci of scarring/atelectasis are noted throughout both lungs. Mediastinum: There is no mediastinal lymphadenopathy. Gladys: Clear. Axillae: There is no axillary lymphadenopathy. Upper abdomen: A small hiatal hernia is noted. The liver is cirrhotic in morphology and heterogeneous attenuation with nodularity of the surface contour. The spleen is enlarged. Foci of cortical scarrin g are seen in the upper pole of the left kidney. Nonobstructive calculi in the upper pole of both kid neys measure up to 6 mm. There are calcified gallstones. Pericholecystic infiltration is nonspecific and may be related to portal hypertension/adjacent hepatocellular disease. Skeletal structures: The skeletal structures are heterogeneously osteopenic. Subtle sclerotic foci/le sions are seen throughout the bony structures, most apparent in the sternum. IMPRESSION: 1. There is no evidence of pulmonary embolus in the main, lobar, or segmental pulmonary arteries. 2. Marked cardiomegaly with evidence of pulmonary artery hypertension. 3. There is no airspace consolidation or pleural effusion. 4. Cirrhotic liver morphology and splenomegaly. See report of abdominal CT performed concurrently for detailed intra-abdominal findings. 5. Subtle sclerotic foci are seen throughout the visualized bony structures. These are nonspecific, a nd although this could potentially be on a metabolic basis, bony metastatic disease is not excluded. Correlate for any oncological history. 6. Additional findings as above. ACT 112: Negative or not required by law. Electronically signed by: Caden Mueller M.D. 12/10/2023 12:26 PM
--- NOTE | 2023-12-10 12:27 | CT Scan Report ---
CT OF THE ABDOMEN AND PELVIS WITH CONTRAST CLINICAL HISTORY: Jaundice. COMPARISON STUDY: CT of the abdomen and pelvis August 05, 2023. TECHNIQUE: Following IV administration of 111 mL of Optiray, axial images of the abdomen and pelvis w ere obtained from the lung bases to the proximal femurs. Images were reviewed in the axial, sagittal, and coronal planes. IV contrast was administered without complication. Automated exposure control w as utilized for the study. A dose lowering technique was utilized adhering to the principles of NERI Huffman. CT DOSE: 2962.71 mGy.cm FINDINGS: Please note that the chest CT will be reported separately. Cardiomegaly, dilated right hear t chambers and dilated central pulmonary arteries are better depicted on that exam. No pneumatosis, f ree air or portal venous gas is present. The IVC and hepatic veins are dilated. Nodularity of the maggy er surface is noted. Multiple subcentimeter hypodense hepatic lesions favor cysts. Sensitivity for de tection of hypervascular liver lesions is diminished on this exam. The main, left and right portal ve ins are somewhat diminutive but patent. The adrenal glands and pancreas are unremarkable. There is no biliary or pancreatic ductal dilatation. Spleen is moderately enlarged. There is moderate gallbladde r wall thickening. There are tiny gallstones within the gallbladder. The gallbladder is not distended . Periportal edema is noted. Hepatic arteries are prominent. Retroperitoneal collaterals are present. There is trace fluid within the pelvis. There is no evidence for a bowel obstruction. The appendix i s normal. Water attenuation renal lesions reflect cysts. There is an indeterminate 1.2 cm lesion pamela ing from the lower pole the left kidney which measures above water attenuation. This could reflect a complex cyst or small solid renal lesion. Bilateral renal calculi measure up to 5 mm. There are no ur eteral calculi. There is no hydronephrosis. The endometrium appears thickened, measuring approximatel y 1.6 cm in thickness. There is no lymphadenopathy. Subtle small skeletal lesions are noted. These ar e most evident within the sacrum. A mild fracture of the superior endplate of L4 is new since CT of [place]. IMPRESSION: 1. Cirrhotic liver with evidence of portal hypertension including moderate splenomegaly and varices f ormation. Trace fluid within the pelvis. Although not definitive, the CT findings raise the possibili ty of a cardiac etiology for cirrhosis. 2. Small gallstones within the gallbladder. Moderate gallbladder wall thickening without gallbladder distention. The gallbladder wall thickening is nonspecific although not highly suggestive of acute ch olecystitis. This could be related to liver disease/portal hypertension. No biliary or pancreatic elier jason dilatation. 3. Numerous subtle skeletal lesions. Although these may be metabolic, findings are suspicious for mye levar or metastatic disease. Oncology consultation is recommended. 4. Thickened endometrium. Nonemergent pelvic ultrasound correlation with postmenopausal bleeding is r ecommended. 5. Bilateral nephrolithiasis. No ureteral calculi. No hydronephrosis. Indeterminate 1.2 cm left lower pole renal lesion. 6. Mild fracture of the superior endplate of L4. This is age indeterminate but new since CT of [facility] er 2022. ACT 112: Positive. There are findings on this exam that require communication between the performing entity and the patient following Patient Test Result Information Act ([place] Act 112) guidelines. Electronically signed by: Que Hutchinson M.D. 12/10/2023 12:25 PM
[2023-12-10] MEDS: ASPIRIN CHEW 324 MG PO STA (12:55)
[2023-12-10] MEDS: PANTOprazole 40 MG in SYRINGE 0 ML IV ONE (13:18)
[2023-12-10] MEDS: SODIUM CHLORIDE 0.9% 500 ML IV ONE (13:53)
--- NOTE | 2023-12-10 14:07 | History & Physical Report ---
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 Acute hypoxic respiratory Failure Dyspnea on Exertion Pt presenting with AGUILAR and dizziness Hypotensive with a slight increase in oxygen requirement at this time In setting of right heart failure Oxygen supplementation as needed Right Heart failure in the setting of Pulmonary Hypertension Known Hx of pulmonary HTN, noncompliant with full treatment for PAH due to cost. States currently only taking her sildenafil 20mg TID and home Lasix 20mg daily with KCl supplementation Was previously prescribed ambrisentan 10mg daily but was not taking it due to cost Follows with [facility] pulmonology Had right sided heart cath in 2019, was lost to follow up for some time BNP of 2137 Echo noting worsening PAH and right sided heart failure, tricuspid regurg Chest CTA noting "marked cardiomegaly with evidence of pulmonary artery hypertension" Cardiology consulted for right sided heart failure recs in this setting -recommending transfer to tertiary care center Pulmonology consulted for PAH -recommending transfer to tertiary care center for IV prostacyclin. Notes use of the ambrisentan pt previously stopped taking CI in setting of cirrhosis Continue with home sildenafil, lasix and KCl regimen Pt accepted for transfer and further care at [facility]. Cirrhosis Congestive Hepatopathy CT abd/pelvis noting "cirrhotic liver with evidence of portal hypertension including moderate splenomegaly and varices formation" Likely in setting of above right sided heart failure Liver enzymes particularly t bili significantly elevated at 12with indirect hyperbilirubinemia Pt jaundiced on exam, scleral icterus noted Pt has been scheduled to have a liver biopsy multiple times over the last 4 y ears. Was due to have one tomorrow 12/10, after rescheduling the last due to a sore throat per [facility] records Follows with GI GI consult placed for further recs. Pt being transferred to tertiary care jones Hepatic Encephalopathy Pt came in confused to the ED Ammonia level could not be evaluated due to sample color In setting of above Head CT unremarkable Brain MRI pending Currently with improving mentation GI consulted, pt being transferred Iron Def Anemia Follows with hematology gets iron infusions Splenomegaly Thrombocytopenia Appears chronic in setting of liver disease above Consider peripheral smear Appears chronic Follows with hematology outpt Possible metastatic Disease Lumbar fracture Noted on CT abd/pelvis lytic lesions Pt with noted chronic hx of back pain MRI lumbar spine pending Gallstones Gallbladder wall thickening Calcified gallstones noted on chest CTA Noted on CT abd/pelvis imaging US gallbladder pending Demand ischemia Trops slightly elevated at 35.2 to 34.2 EKG NSR with R atrial enlargement and right ventricular hypertrophy noted Likely demand in setting above, doubt ACS Elevated D Dimer D dimer elavted at 1120 Chest CTA noting no PE Thickened Endometrium Noted on CT abd/pelvis Nonemergent pelvis US recommended CODE STATUS: Does not intubation or ventilatory support. 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 Hx obtained from [facility] chart review and from the pt as well. States that she has always dealt with some degree of SOB but it has been worsening recently prompting her to come to the ED today. States that she was not aware that she had "severe" pulmonary hypertension or liver disease. Per chart review, she has not been compliant with medications and medical follow ups. Currently being worked up by PCP and following with many specialists in cluding rheumatology for a positive GENI recently, pulmonology for her PAH, cardiology as well, and GI for her liver disease. has missed multiple attempts at a liver biopsy. Also following with Hematology for splenomegaly and pancytopenia hx. Today she states that she has not followed up with that as going under anesthesia for that scares her. She brings this up during the code status discussion about intubation noting that she is scared of "something being down her throat". She states that her current medications are the sildenafil, lasix and a potassium supplement. Notes occasional use of a multivitamin as well. States that we are scaring her with the descriptions of her disease. Case discussed with pulmonary and cardiology services at [facility] and they are recommending transfer to a tertiary care center for further evaluation. They advise that there is nothing they can offer here. Pulmonology advising of need for IV medications to help with the severe PAH such as IV prostacyclin. Allergies Allergy/AdvReac Type Severity Reaction Status Date / Time No Known Allergies Allergy Verified 08/05/23 22:23 Home Medications Medication Instructions Recorded Confirmed Type furosemide 20 mg tablet (Lasix) 20 mg PO QAM 08/09/20 12/10/23 History potassium chloride 20 mEq 20 meq PO QAM 08/09/20 12/10/23 History tablet,extended release sildenafil (pulm.hypertension) 20 20 mg PO TID 08/09/20 12/10/23 History mg tablet Past Med/Surg History Medical History SOB (shortness of breath) on exertion Pulmonary hypertension F/U WITH PULM MEDICINE AT [facility]- DR CRUZ DUMONT AND DR CAREY ([facility]ARD[facility]) Tobacco abuse Thrombocytopenia Seen by [facility] heme - platelets and H&H stable per 03/20/20 office note Pulmonary nodules Anxiety Anemia Surgical History Nausea and vomiting after administration of anesthetic agent History of tubal ligation History of D&C Family History Mother Coronary heart disease CABG in 70s Alzheimer disease Father Coronary heart disease CABG in 70s Family history of diabetes mellitus Brother Family history of diabetes mellitus Other Hypertension Myocardial infarction Social History Smoking Status: Former smoker packs per day: 10; Second Hand Exposure: No; Do You Dip or Chew Tobacco: No; Tobacco Cessation Education Requested by Patient: No Hx Alcohol Use: No Hx Substance Use: No Preferred Language: Occitan Communication Ability: Effective Information Technology Coordinator Required: No Beliefs That Will Affect Care: None marital status: Current Living Situation: Spouse Current Living Situation Comment: spouse and dtr Other Information That Helps Us Care for You: No Feels Safe at Home: Yes Safety Concerns: Feels Safe At This Time Assistive Devices: Glasses Review of Systems Review of Systems: All systems reviewed & are unremarkable except as noted in Subjective Physical Exam Physical Exam: General: Alert, oriented. No acute distress Skin: jaundiced Psych: Appropriate mood and affect Neuro: No gross deficits HEENT: NC/AT, scleral icterus present Chest: Nontender to palpation. CV: RRR Resp: Breath sounds clear bilaterally, no increased effort of breathing. Abdomen: Soft, nontender, nondistended. Extremities: No edema in lower extremities bilaterally. Results & Data Results & Data Vital Signs (Past 12 Hours) Vital Signs Temp Pulse Pulse Resp BP BP Pulse Ox 12/10/23 13:46 93 H 21 103/76 96 12/10/23 13:40 95 H 17 84/64 L 93 12/10/23 13:37 90 21 106/75 93 12/10/23 13:33 94 H 23 96/71 L 95 12/10/23 13:05 87 22 97/64 L 95 12/10/23 12:57 94 12/10/23 12:56 95 H 22 105/74 94 12/10/23 12:31 88 18 105/74 94 12/10/23 12:15 89 12/10/23 12:00 85 21 115/84 96 12/10/23 10:56 36.4 C L 74 20 107/67 96 12/10/23 10:11 36.6 C 78 20 105/65 100 O2 Del Method 12/10/23 13:46 Room Air 12/10/23 13:40 Room Air 12/10/23 13:37 Room Air 12/10/23 13:33 Room Air 12/10/23 13:05 Room Air 12/10/23 12:57 Room Air 12/10/23 12:56 Room Air 12/10/23 12:31 Room Air 12/10/23 12:15 12/10/23 12:00 Room Air 12/10/23 10:56 Room Air 12/10/23 10:11 Room Air Diagnostic Findings Chest X-Ray 12/10/23 10:15 XR chest 1V portable CLINICAL HISTORY: Chest pain, nonspecific COMPARISON STUDY: Chest radiograph September 19, 2020. Chest CT May 27, 2019. FINDINGS: There is no pneumothorax or pleural effusion. Pulmonary vascularity is normal. There is no consolidation. Moderate cardiomegaly is noted. Bilateral hilar prominence is likely due to dilated central pulmonary arteries. IMPRESSION: 1. No acute cardiopulmonary findings. 2. Cardiomegaly. 3. Dilated central pulmonary arteries. This raises the possibility of pulmonary arterial hypertension. ACT 112: Negative or not required by law. Electronically signed by: Que Hutchinson M.D. 12/10/2023 11:00 AM Abdomen/Pelvis CT 12/10/23 11:00 CT OF THE ABDOMEN AND PELVIS WITH CONTRAST CLINICAL HISTORY: Jaundice. COMPARISON STUDY: CT of the abdomen and pelvis August 05, 2023. TECHNIQUE: Following IV administration of 111 mL of Optiray, axial images of the abdomen and pelvis were obtained from the lung bases to the proximal femurs. Images were reviewed in the axial, sagittal, and coronal planes. IV contrast was administered without complication. Automated exposure control was utilized for the study. A dose lowering technique was utilized adhering to the principles of ALARA. CT DOSE: 2962.71 mGy.cm FINDINGS: Please note that the chest CT will be reported separately. Cardiomegaly, dilated right heart chambers and dilated central pulmonary arteries are better depicted on that exam. No pneumatosis, free air or portal venous gas is present. The IVC and hepatic veins are dilated. Nodularity of the liver surface is noted. Multiple subcentimeter hypodense hepatic lesions favor cysts. Sensitivity for detection of hypervascular liver lesions is diminished on this exam. The main, left and right portal veins are somewhat diminutive but patent. The adrenal glands and pancreas are unremarkable. There is no biliary or pancreatic ductal dilatation. Spleen is moderately enlarged. There is moderate gallbladder wall thickening. There are tiny gallstones within the gallbladder. The gallbladder is not distended. Periportal edema is noted. Hepatic arteries are prominent. Retroperitoneal collaterals are present. There is trace fluid within the pelvis. There is no evidence for a bowel obstruction. The appendix is normal. Water attenuation renal lesions reflect cysts. There is an indeterminate 1.2 cm lesion arising from the lower pole the left kidney which measures above water attenuation. This could reflect a complex cyst or small solid renal lesion. Bilateral renal calculi measure up to 5 mm. There are no ureteral calculi. There is no hydronephrosis. The endometrium appears thickened, measuring approximately 1.6 cm in thickness. There is no lymphadenopathy. Subtle small skeletal lesions are noted. These are most evident within the sacrum. A mild fracture of the superior endplate of L4 is new since CT of August 05, 2023. IMPRESSION: 1. Cirrhotic liver with evidence of portal hypertension including moderate splenomegaly and varices formation. Trace fluid within the pelvis. Although not definitive, the CT findings raise the possibility of a cardiac etiology for cirrhosis. 2. Small gallstones within the gallbladder. Moderate gallbladder wall thickening without gallbladder distention. The gallbladder wall thickening is nonspecific although not highly suggestive of acute cholecystitis. This could be related to liver disease/portal hypertension. No biliary or pancreatic ductal dilatation. 3. Numerous subtle skeletal lesions. Although these may be metabolic, findings are suspicious for myeloma or metastatic disease. Oncology consultation is recommended. 4. Thickened endometrium. Nonemergent pelvic ultrasound correlation with postmenopausal bleeding is recommended. 5. Bilateral nephrolithiasis. No ureteral calculi. No hydronephrosis. Indeterminate 1.2 cm left lower pole renal lesion. 6. Mild fracture of the superior endplate of L4. This is age indeterminate but new since CT of August 05, 2023. ACT 112: Positive. There are findings on this exam that require communication between the performing entity and the patient following Patient Test Result Information Act ([place] Act 112) guidelines. Electronically signed by: Que Hutchinson M.D. 12/10/2023 12:25 PM Chest CTA 12/10/23 11:00 CT ANGIOGRAM OF THE CHEST CLINICAL HISTORY: Change in mental status. Jaundice. COMPARISON STUDY: Chest CT dated 05/27/2019. Chest x-ray dated 12/10/2023. TECHNIQUE: Following the IV administration of 111 cc of Optiray 350, CT angiogram of the chest was performed from the upper abdomen to the thoracic inlet utilizing the pulmonary embolus protocol. Images are reviewed in the axial, sagittal, and coronal planes. 3-D MIPS images are created and assessed. IV contrast was administered without complication. A dose lowering technique was utilized adhering to the principles of ALARA. FINDINGS: Thyroid: Imaged portions of the thyroid gland are normal in size and attenuation. Thoracic aorta: The thoracic aorta is normal in caliber and demonstrates standard 3-vessel arch anatomy. The thoracic aorta is not well-opacified. Pulmonary vasculature: The pulmonary trunk is markedly dilated, measuring 4.2 cm diameter. This indicates pulmonary artery hypertension. There are no filling defects identified in main, lobar, or segmental pulmonary branches to suggest pulmonary embolus. Heart: The heart is markedly enlarged and without pericardial effusion. The coronary arteries are densely calcified. Lungs and pleural spaces: There is no airspace consolidation or pleural effusion. The trachea and central airways are clear. Scattered calcified granulomas are observed. Foci of scarring/atelectasis are noted throughout both lungs. Mediastinum: There is no mediastinal lymphadenopathy. Gladys: Clear. Axillae: There is no axillary lymphadenopathy. Upper abdomen: A small hiatal hernia is noted. The liver is cirrhotic in morphology and heterogeneous attenuation with nodularity of the surface contour. The spleen is enlarged. Foci of cortical scarring are seen in the upper pole of the left kidney. Nonobstructive calculi in the upper pole of both kidneys measure up to 6 mm. There are calcified gallstones. Pericholecystic infiltration is nonspecific and may be related to portal hypertension/adjacent hepatocellular disease. Skeletal structures: The skeletal structures are heterogeneously osteopenic. Subtle sclerotic foci/lesions are seen throughout the bony structures, most apparent in the sternum. IMPRESSION: 1. There is no evidence of pulmonary embolus in the main, lobar, or segmental p ulmonary arteries. 2. Marked cardiomegaly with evidence of pulmonary artery hypertension. 3. There is no airspace consolidation or pleural effusion. 4. Cirrhotic liver morphology and splenomegaly. See report of abdominal CT performed concurrently for detailed intra-abdominal findings. 5. Subtle sclerotic foci are seen throughout the visualized bony structures. These are nonspecific, and although this could potentially be on a metabolic basis, bony metastatic disease is not excluded. Correlate for any oncological history. 6. Additional findings as above. ACT 112: Negative or not required by law. Electronically signed by: Caden Mueller M.D. 12/10/2023 12:[address] 12/10/23 11:00 CT OF THE HEAD WITHOUT CONTRAST CLINICAL HISTORY: Altered mental status. COMPARISON STUDY: Head CT January 15, 2016. TECHNIQUE: Helical axial images of the head were obtained without IV contrast. Automated exposure control was utilized for the study. A dose lowering technique was utilized adhering to the principles of ALARA. FINDINGS: No acute intracranial hemorrhage, midline shift or mass effect is present. The ventricular system is unremarkable. The basal cisterns are patent. No extra-axial collections are present. There are no findings to suggest acute dural sinus thrombosis or acute territorial infarct. No significant calvarial abnormalities are present. Visualized portions of the sinuses and mastoid air cells are clear. IMPRESSION: No acute intracranial findings. ACT 112: Negative or not required by law. Electronically signed by: Que Hutchinson M.D. 12/10/2023 12:08 PM Medications Administered Current Inpatient Medications Furosemide (Furosemide 20 Mg Tab) 20 mg PO QAM GEOFF Stop: 01/10/24 08:59 Ondansetron HCl (Ondansetron Inj 2 Mg/Ml 2 Ml Vial) 4 mg IV Q6H PRN PRN Reason: Nausea And Vomiting Stop: 01/09/24 19:46 Oxycodone HCl (Oxycodone Hcl Ir 5 Mg Tab (Immediate Release)) 5 mg PO Q6H PRN PRN Reason: Pain Stop: 12/24/23 19:46 Potassium Chloride (Potassium Chloride Crtab 20 Meq Tabcr) 20 meq PO QAM GEOFF Stop: 01/10/24 08:59 Sildenafil Citrate (Sildenafil Citrate 20 Mg Tablet) 20 mg PO TID GEOFF Stop: 01/09/24 20:59
[2023-12-10 15:13] LABS: Adenovirus PCR Not Detected (NotDetected); Bordetella parapertussis PCR Not Detected (NotDetected); Bordetella pertussis PCR Not Detected (NotDetected); Chlamydia pneumoniae PCR Not Detected (NotDetected); Coronavirus 229E PCR Not Detected (NotDetected); Coronavirus CoV-2 (COVID19)PCR Not Detected (NotDetected); Coronavirus HKU1 PCR Not Detected (NotDetected); Coronavirus NL63 PCR Not Detected (NotDetected); Coronavirus OC43PCR Not Detected (NotDetected); Human Metapneumovirus PCR Not Detected (NotDetected); Influenza A PCR Not Detected (NotDetected); Influenza B PCR Not Detected (NotDetected); Mycoplasma pneumoniae PCR Not Detected (NotDetected); Parainfluenza Virus 1 PCR Not Detected (NotDetected); Parainfluenza Virus 2 PCR Not Detected (NotDetected); Parainfluenza Virus 3 PCR Not Detected (NotDetected); Parainfluenza Virus 4 PCR Not Detected (NotDetected); Respiratory Syncytial VirusPCR Not Detected (NotDetected); Rhinovirus/Enterovirus PCR Not Detected (NotDetected)
--- NOTE | 2023-12-10 15:43 | Pulmonary Consultation ---
Date of Consultation December 10, 2023 Assessment & Plan (1) Hyperbilirubinemia: (2) Right heart failure due to pulmonary hypertension: (3) SOB (shortness of breath) on exertion: (4) Chest pain: Chest pain type: unspecified Qualified Code(s): R07.9 - Chest pain, unspecified Plan 2D echo 12/10/2023: EF 65 to 70%, RVSP > 100, RV systolic function moderately reduced CTA chest 12/10/2023 personally reviewed: No pleural effusion Cardiomegaly with significant dilation of the main pulmonary trunk as well as the right atrium No significant mediastinal lymphadenopathy -- Pulmonary arterial hypertension [facility] III-IV As per the patient she was diagnosed with cardiac cath and was started on sildenafil back in [id number] Right now she is compliant with her sildenafil and tries to take it 3 times a day. She was supposedly on Ambrisentan as well but she stopped it on her own. Procalcitonin 0.11 BNP 2138 Respiratory bio fire negative for everything --Indirect bilirubinemia T. bili 12.6 with direct bilirubin 1.2 I will order autoimmune hemolysis workup Patient also takes Tylenol on a regular basis. In the last week she took it for maybe 3-4 days up to 2.7 g a day Salicylate and acetaminophen level has been ordered Plan: Based on the labs today it seems that patient likely falls into Child-Pal B given the elevated bilirubin and small ascites. It is still okay to give sildenafil at the same dose for Child-Pal A-B Ambrisentan will be contraindicated Lasix 20 mg p.o. on a daily basis, can change to 20 mg IV daily. Strict in and out Patient's RVSP has increased significantly compared to the previous echo. Given the limitations of p.o. medication, I think IV prostacyclin should be thought of. Patient is being managed at [facility]. Would recommend transfer to a tertiary care center for the treatment of her underlying severe pulmonary hypertension She will also benefit from evaluation from gastroenterology for the severely elevated bilirubin. Should the patient be given N-acetylcysteine will be deferred to primary team and then but I think it is reasonable to think about giving it to her Case was discussed with cardiology Dr. Carey at bedside Please note the above document was generated using voice recognition software. It may contain grammatical, syntax or spelling errors.Any formal questions or concerns about the content, text or information contained within the body of this dictation should be directly addressed to the provider for clarification. History of Present Illness History of Present Illness 63-year-old female admitted to the hospital for chest pain and shortness of breath Past medical history: PAH on sildenafil, autoimmune liver cirrhosis Pulmonary consulted for hypoxia At the time of examination patient was saturating 99% on 1 L oxygen. She was taken off of oxygen Heart rate was in the mid 90s to low 100s. She was not in any respiratory distress Breathing in high teens. The reason she came to the hospital was exertional shortness of breath with dizziness and chest pain. Pain was nonradiating She has not been feeling herself for the last couple of days. She did have some subjective chills. No fever Occasional cough with clear phlegm. No hemoptysis. Denies any blood in the stool, urine or epistaxis No difficulty swallowing. She says that she tries to be compliant with sildenafil but there are days when she may be missed 1 dose a day. Denies any personal or family history of any autoimmune disease like lupus, sarcoid, Sjogren's, rheumatoid Social history: Approximately 30-umjg-sjvd smoking history, quit at the age of 59. Allergies Allergy/AdvReac Type Severity Reaction Status Date / Time No Known Allergies Allergy Verified 08/05/23 22:23 Home Medications Medication Instructions Recorded Confirmed Type furosemide 20 mg tablet (Lasix) 20 mg PO QAM 08/09/20 12/10/23 History potassium chloride 20 mEq 20 meq PO QAM 08/09/20 12/10/23 History tablet,extended release sildenafil (pulm.hypertension) 20 20 mg PO TID 08/09/20 12/10/23 History mg tablet Patient History Medical History (Updated 12/10/23 @ 16:22 by Edilson Duval MD, [facility]) SOB (shortness of breath) on exertion Pulmonary hypertension F/U WITH PULM MEDICINE AT [facility]- DR CRUZ DUMONT AND DR CAREY (CARDIO [facility]) Tobacco abuse Thrombocytopenia Seen by [facility] heme - platelets and H&H stable per 03/20/20 office note Pulmonary nodules Anxiety Anemia Surgical History Nausea and vomiting after administration of anesthetic agent History of tubal ligation History of D&C Family History Mother Coronary heart disease CABG in 70s Alzheimer disease Father Coronary heart disease CABG in 70s Family history of diabetes mellitus Brother Family history of diabetes mellitus Other Hypertension Myocardial infarction Social History Smoking Status: Never smoker packs per day: 10; Cigarettes Per Day: 10; Second Hand Exposure: Yes; Do You Dip or Chew Tobacco: No; Hx Alcohol Use: No Hx Substance Use: No Preferred Language: Bulgarian Communication Ability: Effective 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 Beliefs That Will Affect Care: None marital status: Current Living Situation: Spouse Feels Safe at Home: Yes Assistive Devices: Glasses Review of Systems 2 Review of Systems: All systems reviewed & are unremarkable except as noted in HPI & below Physical Exam 2 Physical Exam: Constitutional: No acute distress HEENT: EOMI, PERRLA, scleral icterus Respiratory system: Good air entry bilaterally, no wheeze, no rhonchi, positive crackles bilateral lower lobes CVS: S1-S2 positive, positive 2 out of 6 systolic murmur appreciated best at the left parasternal border Abdomen: Soft, nontender, nondistended, positive bowel sounds x4 Extremities: +2 pulses bilaterally radialis/ dorsalis pedis, no cyanosis, no edema Neuro: Awake alert oriented x3, answering all the questions appropriately Psych: Normal mood and affect G/U: No Delgado Skin: no rashes, warm and dry Lymphatic: no cervical or axillary lymphadenopathy Results & Data Results & Data Vital Signs (Past 12 Hours) Vital Signs Temp Pulse Pulse Resp BP BP Pulse Ox 12/10/23 15:21 94 H 23 102/79 95 12/10/23 15:10 93 H 20 101/79 98 12/10/23 15:00 95 H 23 111/83 96 12/10/23 14:50 92 H 23 99/82 L 95 12/10/23 14:40 93 H 20 104/62 94 12/10/23 14:38 88 L 12/10/23 14:30 94 H 22 115/85 92 12/10/23 14:20 93 H 20 94/75 L 92 12/10/23 14:10 92 H 23 104/85 92 12/10/23 14:00 92 H 20 105/78 92 12/10/23 13:50 94 H 17 112/84 94 12/10/23 13:46 93 H 21 103/76 96 12/10/23 13:40 95 H 17 84/64 L 93 12/10/23 13:37 90 21 106/75 93 12/10/23 13:33 94 H 23 96/71 L 95 12/10/23 13:05 87 22 97/64 L 95 12/10/23 12:57 94 12/10/23 12:56 95 H 22 105/74 94 12/10/23 12:31 88 18 105/74 94 12/10/23 12:15 89 12/10/23 12:00 85 21 115/84 96 12/10/23 10:56 36.4 C L 74 20 107/67 96 12/10/23 10:11 36.6 C 78 20 105/65 100 O2 Del Method O2 Flow Rate 12/10/23 15:21 Nasal Cannula 2 12/10/23 15:10 Nasal Cannula 2 12/10/23 15:00 Nasal Cannula 2 12/10/23 14:50 Nasal Cannula 2 12/10/23 14:40 Nasal Cannula 2 12/10/23 14:38 0 12/10/23 14:30 Room Air 12/10/23 14:20 Room Air 12/10/23 14:10 Room Air 12/10/23 14:00 Room Air 12/10/23 13:50 Room Air 12/10/23 13:46 Room Air 12/10/23 13:40 Room Air 12/10/23 13:37 Room Air 12/10/23 13:33 Room Air 12/10/23 13:05 Room Air 12/10/23 12:57 Room Air 12/10/23 12:56 Room Air 12/10/23 12:31 Room Air 12/10/23 12:15 12/10/23 12:00 Room Air 12/10/23 10:56 Room Air 12/10/23 10:11 Room Air Laboratory Results 12/10/23 10:45 12/10/23 10:45 PG Care Time/CCT Total # of Minutes Spent Total Time Spent with Patient: Total time spent is greater than 50% in coordination of care (as documented) at patient's floor/unit and/or counseling patient: Coding Level of Care Code 23604 INT INP/OBS CARE 75MIN Diagnoses Hyperbilirubinemia E80.6 Right heart failure due to pulmonary hypertension I27.29; I50.810 SOB (shortness of breath) on exertion R06.02 Chest pain R07.9 Chest pain type: unspecified
--- NOTE | 2023-12-10 16:16 | Electrocardiogram Report ---
Test Reason : Blood Pressure : / mmHG Vent. Rate : 085 BPM Atrial Rate : 085 BPM P-R Int : 148 ms QRS Dur : 100 ms QT Int : 380 ms P-R-T Axes : 064 099 267 degrees QTc Int : 452 ms Normal sinus rhythm Right atrial enlargement Possible Right ventricular hypertrophy Abnormal ECG When compared with ECG of 19-SEP-2020 05:24, T wave inversion now evident in Inferior leads T wave inversion now evident in Lateral leads Confirmed by Bull Hui ([id number]) on 12/10/2023 4:16:36 PM Referred By: Confirmed By:Bull Hui
--- NOTE | 2023-12-10 16:47 | Cardiology Consultation ---
Date of Consultation December 10, 2023 Assessment & Plan (1) SOB (shortness of breath) on exertion: (2) Right heart failure due to pulmonary hypertension: (3) Primary pulmonary hypertension: Plan 63-year-old female with documented primary pulmonary pretension by prior extensive evaluation 2019. Previously on vasodilator therapy presents now after lapse in treatments noting recent gradual decline culminating in symptoms of back pain shortness of breath and chest pressure. Recent outpatient evaluations by GI, pulmonary, hematology. Presented with worsening symptoms today Laboratory studies notable for hemolytic anemia markedly elevated bilirubin Echocardiogram reveals massively dilated right ventricle with severe pulmonary hypertension approaching systemic in severity No evidence of massive volume overload or anasarca Recommendations: Tertiary care referral for consideration of IV medical therapies. History of Present Illness Reason for Consultation: Severe pulmonary hypertension Requesting Physician: Dr Daniel Attending Physician: Sandy Daniel MD History of Present Illness Patient is a 63-year-old female with complex history. Prior records reviewed as well as discussion with patient. Significant concerns include 1. 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 Severe right ventricular dilatation with severe tricuspid insufficiency secondary to above 3. Hemolytic anemia 4. Hyperbilirubinemia Records reflect patient recently establishing with physicians after lapse in specialty care over the past 3 years. Had stopped using vasodilators. Laboratory studies reflected probable hemolytic anemia with elevated bilirubin and low iron levels. Patient presents today with worsening dyspnea as well as chest pressure and low back and flank pain. EKGs with strain pattern inferior and anterolaterally consistent with prior studies of 2019 Echocardiogram demonstrates massive dilatation of the right ventricle with severe hypokinesis, severe tricuspid insufficiency. Pulmonary pressures markedly elevated by indirect measurement approaching systemic TR velocity greater than 5 m/s At time of exam patient comfortable but concerns regarding recent symptoms. Significant jaundice Denies currently chest pain Respiratory status stable at rest Allergies Allergy/AdvReac Type Severity Reaction Status Date / Time No Known Allergies Allergy Verified 08/05/23 22:23 Home Medications Medication Instructions Recorded Confirmed Type furosemide 20 mg tablet (Lasix) 20 mg PO QAM 08/09/20 12/10/23 History potassium chloride 20 mEq 20 meq PO QAM 08/09/20 12/10/23 History tablet,extended release sildenafil (pulm.hypertension) 20 20 mg PO TID 08/09/20 12/10/23 History mg tablet Patient History Medical History SOB (shortness of breath) on exertion Pulmonary hypertension F/U WITH PULM MEDICINE AT [facility]- DR CRUZ DUMONT AND DR CAREY (CARDIO [facility]) Tobacco abuse Thrombocytopenia Seen by [facility] heme - platelets and H&H stable per 03/20/20 office note Pulmonary nodules Anxiety Anemia Surgical History Nausea and vomiting after administration of anesthetic agent History of tubal ligation History of D&C Family History Mother Coronary heart disease CABG in 70s Alzheimer disease Father Coronary heart disease CABG in 70s Family history of diabetes mellitus Brother Family history of diabetes mellitus Other Hypertension Myocardial infarction Social History Smoking Status: Former smoker packs per day: 10; Second Hand Exposure: No; Do You Dip or Chew Tobacco: No; Tobacco Cessation Education Requested by Patient: No Hx Alcohol Use: No Hx Substance Use: No Preferred Language: South Korean Communication Ability: Effective 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 Beliefs That Will Affect Care: None marital status: Current Living Situation: Spouse Current Living Situation Comment: spouse and dtr Other Information That Helps Us Care for You: No Feels Safe at Home: Yes Safety Concerns: Feels Safe At This Time Assistive Devices: Glasses Review of Systems Review of Systems: All systems reviewed & are unremarkable except as noted in HPI & below Physical Exam Constitutional: + ill appearing Eyes: PERRL, conjunctivae normal, anicteric sclerae Icteric sclera Neck: trachea midline, no thyromegaly Respiratory: normal respiratory effort, lungs clear to auscultation Cardiovascular: Rate/Rhythm: regular rate and regular rhythm Heart Sounds: + murmur Extremities: no edema Gastrointestinal (Abdomen): Inspection/Auscultation: + abdomen distended (Minimal) Percussion/Palpation: abdomen soft Results & Data Vital Signs (Past 12 Hours) Vital Signs Temp Pulse Pulse Resp BP BP Pulse Ox 12/10/23 16:11 12/10/23 15:51 36.5 C 100 H 19 110/75 99 12/10/23 15:21 94 H 23 102/79 95 12/10/23 15:10 93 H 20 101/79 98 12/10/23 15:00 95 H 23 111/83 96 12/10/23 14:50 92 H 23 99/82 L 95 12/10/23 14:40 93 H 20 104/62 94 12/10/23 14:38 88 L 12/10/23 14:30 94 H 22 115/85 92 12/10/23 14:20 93 H 20 94/75 L 92 12/10/23 14:10 92 H 23 104/85 92 12/10/23 14:00 92 H 20 105/78 92 12/10/23 13:50 94 H 17 112/84 94 12/10/23 13:46 93 H 21 103/76 96 12/10/23 13:40 95 H 17 84/64 L 93 12/10/23 13:37 90 21 106/75 93 12/10/23 13:33 94 H 23 96/71 L 95 12/10/23 13:05 87 22 97/64 L 95 12/10/23 12:57 94 12/10/23 12:56 95 H 22 105/74 94 12/10/23 12:31 88 18 105/74 94 12/10/23 12:15 89 12/10/23 12:00 85 21 115/84 96 12/10/23 10:56 36.4 C L 74 20 107/67 96 12/10/23 10:11 36.6 C 78 20 105/65 100 O2 Del Method O2 Flow Rate 12/10/23 16:11 Room Air 1 12/10/23 15:51 Nasal Cannula 1 12/10/23 15:21 Nasal Cannula 2 12/10/23 15:10 Nasal Cannula 2 12/10/23 15:00 Nasal Cannula 2 12/10/23 14:50 Nasal Cannula 2 12/10/23 14:40 Nasal Cannula 2 12/10/23 14:38 0 12/10/23 14:30 Room Air 12/10/23 14:20 Room Air 12/10/23 14:10 Room Air 12/10/23 14:00 Room Air 12/10/23 13:50 Room Air 12/10/23 13:46 Room Air 12/10/23 13:40 Room Air 12/10/23 13:37 Room Air 12/10/23 13:33 Room Air 12/10/23 13:05 Room Air 12/10/23 12:57 Room Air 12/10/23 12:56 Room Air 12/10/23 12:31 Room Air 12/10/23 12:15 12/10/23 12:00 Room Air 12/10/23 10:56 Room Air 12/10/23 10:11 Room Air Laboratory Results Laboratory Results - last 24 hr 12/10/23 12/10/23 12/10/23 10:45 11:16 12:08 WBC 5.08 RBC 3.48 L Hgb 8.9 L Hct 31.3 L MCV 89.9 MCH 25.6 MCHC 28.4 L RDW Std Deviation 75.7 H RDW Coeff of Dalia 24.0 H Plt Count 103 L Immature Gran % (Auto) 0.6 Neut % (Auto) 54.3 Lymph % (Auto) 35.4 Yuba % (Auto) 6.5 Eos % (Auto) 2.2 Baso % (Auto) 1.0 Reticulocyte % (Auto) Pending Neut # (Auto) 2.76 Lymph # (Auto) 1.80 Yuba # (Auto) 0.33 Eos # (Auto) 0.11 Baso # (Auto) 0.05 Reticulocyte # Pending Immature Gran # (Auto) 0.03 Absolute Nucleated RBC 0.08 Nucleated RBC % (auto) 1.6 Polychromasia 1+ Anisocytosis Present Tear Drop Cells 1+ Peripher Smr Path Cons Pending Retic Hgb Content Pending PT 11.6 INR 1.1 APTT 31 PTT Ratio 1.1 D-Dimer 1120 H* VBG pH 7.42 H VBG pCO2 29 L VBG pO2 27 VBG HCO3 19 VBG O2 Saturation < 60.0 VBG Base Excess -5.0 Sodium 136 Potassium 3.9 Chloride 105 Carbon Dioxide 19 L Anion Gap 12 H BUN 14 Creatinine 1.16 Est Cr Clr Drug Dosing 54.0 Est GFR ( Amer) 58.9 Est GFR (Non-Af Amer) 50.8 BUN/Creatinine Ratio 12.1 Glucose 105 H Calcium 9.4 Total Bilirubin 12.6 H Direct Bilirubin 1.2 H AST 67 H ALT 51 Alkaline Phosphatase 177 H Ammonia TNP Troponin I High Sens 35.2 H B-Natriuretic Peptide Total Protein 7.8 Albumin 4.1 Globulin 3.7 Albumin/Globulin Ratio 1.1 Procalcitonin Adenovirus (PCR) B. pertussis DNA (PCR) B.parapertussis DNA PCR C. pneumoniae DNA (PCR) Coronavirus OC43 (PCR) Coronavirus HKU1 (PCR) Coronavirus 229E (PCR) SARS-CoV-2 (PCR) Coronavirus NL63 (PCR) Human Metapneumovir PCR Influenza Type A (PCR) Influenza Type B (PCR) M. pneumoniae (PCR) Parainfluenza 1 (PCR) Parainfluenza 2 (PCR) Parainfluenza 3 (PCR) Parainfluenza 4 (PCR) RSV (PCR) Entero/Rhino (PCR) Ref Lab Test Result Pending 12/10/23 12/10/23 12:53 14:05 WBC RBC Hgb Hct MCV MCH MCHC RDW Std Deviation RDW Coeff of Dalia Plt Count Immature Gran % (Auto) Neut % (Auto) Lymph % (Auto) Yuba % (Auto) Eos % (Auto) Baso % (Auto) Reticulocyte % (Auto) Neut # (Auto) Lymph # (Auto) Yuba # (Auto) Eos # (Auto) Baso # (Auto) Reticulocyte # Immature Gran # (Auto) Absolute Nucleated RBC Nucleated RBC % (auto) Polychromasia Anisocytosis Tear Drop Cells Peripher Smr Path Cons Retic Hgb Content PT INR APTT PTT Ratio D-Dimer VBG pH VBG pCO2 VBG pO2 VBG HCO3 VBG O2 Saturation VBG Base Excess Sodium Potassium Chloride Carbon Dioxide Anion Gap BUN Creatinine Est Cr Clr Drug Dosing Est GFR ( Amer) Est GFR (Non-Af Amer) BUN/Creatinine Ratio Glucose Calcium Total Bilirubin Direct Bilirubin AST ALT Alkaline Phosphatase Ammonia Troponin I High Sens 34.2 H B-Natriuretic Peptide 2138 H Total Protein Albumin Globulin Albumin/Globulin Ratio Procalcitonin 0.11 Adenovirus (PCR) Not Detected B. pertussis DNA (PCR) Not Detected B.parapertussis DNA PCR Not Detected C. pneumoniae DNA (PCR) Not Detected Coronavirus OC43 (PCR) Not Detected Coronavirus HKU1 (PCR) Not Detected Coronavirus 229E (PCR) Not Detected SARS-CoV-2 (PCR) Not Detected Coronavirus NL63 (PCR) Not Detected Human Metapneumovir PCR Not Detected Influenza Type A (PCR) Not Detected Influenza Type B (PCR) Not Detected M. pneumoniae (PCR) Not Detected Parainfluenza 1 (PCR) Not Detected Parainfluenza 2 (PCR) Not Detected Parainfluenza 3 (PCR) Not Detected Parainfluenza 4 (PCR) Not Detected RSV (PCR) Not Detected Entero/Rhino (PCR) Not Detected Ref Lab Test Result
[2023-12-10 17:33] LABS: Immature Retic Fraction 36.5 % (2.3-15.9); Reticulocyte % 4.14 % (0.50-2.00)
--- NOTE | 2023-12-10 17:57 | Discharge Summary ---
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 Hx obtained from [facility] chart review and from the pt as well. States that she has always dealt with some degree of SOB but it has been worsening recently prompting her to come to the ED today. States that she was not aware that she had "severe" pulmonary hypertension or liver disease. Per chart review, she has not been compliant with medications and medical follow ups. Currently being worked up by PCP and following with many specialists including rheumatology for a positive GENI recently, pulmonology for her PAH, cardiology as well, and GI for her liver disease. has missed multiple attempts at a liver biopsy. Also following with Hematology for splenomegaly and panc ytopenia hx. Today she states that she has not followed up with that as going under anesthesia for that scares her. She brings this up during the code status discussion about intubation noting that she is scared of "something being down her throat". She states that her current medications are the sildenafil, lasix and a potassium supplement. Notes occasional use of a multivitamin as well. States that we are scaring her with the descriptions of her disease. Case discussed with pulmonary and cardiology services at [facility] and they are recommending transfer to a tertiary care center for further evaluation. They advise that there is nothing they can offer here. Pulmonology advising of need for IV medications to help with the severe PAH such as IV prostacyclin. Admission Exam Per Admitting Provider General: Alert, oriented. No acute distress Skin: jaundiced Psych: Appropriate mood and affect Neuro: No gross deficits HEENT: NC/AT, scleral icterus present Chest: Nontender to palpation. CV: RRR Resp: Breath sounds clear bilaterally, no increased effort of breathing. Abdomen: Soft, nontender, nondistended. Extremities: No edema in lower extremities bilaterally. 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 Acute hypoxic respiratory Failure Dyspnea on Exertion Pt presenting with AGUILAR and dizziness Hypotensive with a slight increase in oxygen requirement at this time In setting of right heart failure She notes she breathes better when she lays on her side. However noted on telemetry in the ED, that her BP is signifcantly lower when she lays on her side. Oxygen supplementation as needed, encourage use Right Heart failure in the setting of Pulmonary Hypertension Known Hx of pulmonary HTN, noncompliant with full treatment for PAH due to cost. States currently only taking her sildenafil 20mg TID and home Lasix 20mg daily with KCl supplementation Was previously prescribed ambrisentan 10mg daily but was not taking it due to cost Follows with [facility] pulmonology Had right sided heart cath in 2019, was lost to follow up for some time BNP of 2137 Echo noting worsening PAH and right sided heart failure, tricuspid regurg Chest CTA noting "marked cardiomegaly with evidence of pulmonary artery hypertension" Cardiology consulted for right sided heart failure recs in this setting -recommending transfer to tertiary care center Pulmonology consulted for PAH -recommending transfer to tertiary care center for IV prostacyclin. Notes use of the ambrisentan pt previously stopped taking CI in setting of cirrhosis Continue with home sildenafil, lasix and KCl regimen Pt accepted for transfer and further care at [facility]. Cirrhosis Congestive Hepatopathy CT abd/pelvis noting "cirrhotic liver with evidence of portal hypertension including moderate splenomegaly and varices formation" Likely in setting of above right sided heart failure Liver enzymes particularly t bili significantly elevated at 12with indirect hyperbilirubinemia Pt jaundiced on exam, scleral icterus noted Pt has been scheduled to have a liver biopsy multiple times over the last 4 years. Was due to have one tomorrow 12/10, after rescheduling the last due to a sore throat per EPIC records Follows with GI GI consult placed for further recs. Pt being transferred to tertiary care center Hepatic Encephalopathy Pt came in confused to the ED Ammonia level could not be evaluated due to sample color In setting of above Head CT unremarkable Brain MRI pending Currently with improving mentation GI consulted, pt being transferred Iron Def Anemia Follows with hematology gets iron infusions Splenomegaly Thrombocytopenia Appears chronic in setting of liver disease above Consider peripheral smear Appears chronic Follows with hematology outpt Possible metastatic Disease Lumbar fracture Noted on CT abd/pelvis lytic lesions Pt with noted chronic hx of back pain MRI lumbar spine pending Gallstones Gallbladder wall thickening Calcified gallstones noted on chest CTA Noted on CT abd/pelvis imaging US gallbladder pending Demand ischemia Trops slightly elevated at 35.2 to 34.2 EKG NSR with R atrial enlargement and right ventricular hypertrophy noted Likely demand in setting above, doubt ACS Elevated D Dimer D dimer elavted at 1120 Chest CTA noting no PE Thickened Endometrium Noted on CT abd/pelvis Nonemergent pelvis US recommended CODE STATUS: Does not intubation or ventilatory support. Agreeble to chest compressions and defibrillator use DVT prophylaxis: SCDs in setting of thrombocytopenia Diet: Gluten free/HH/Low sodium Dispo: Awaiting transfer to [facility] Discharge Exam General: Alert, oriented. No acute distress Skin: jaundiced Psych: Appropriate mood and affect Neuro: No gross deficits HEENT: NC/AT, scleral icterus present Chest: Nontender to palpation. CV: RRR Resp: Breath sounds clear bilaterally, no increased effort of breathing. Abdomen: Soft, nontender, nondistended. Extremities: No edema in lower extremities bilaterally. Updated Medication List Medication Instructions Recorded Confirmed Type furosemide 20 mg tablet (Lasix) 20 mg PO QAM 08/09/20 12/10/23 History potassium chloride 20 mEq 20 meq PO QAM 08/09/20 12/10/23 History tablet,extended release sildenafil (pulm.hypertension) 20 20 mg PO TID 08/09/20 12/10/23 History mg tablet Additional Medication Comments Current Inpatient Medications Furosemide (Furosemide 20 Mg Tab) 20 mg PO QAM [facility] Stop: 01/10/24 08:59 Ondansetron HCl (Ondansetron Inj 2 Mg/Ml 2 Ml Vial) 4 mg IV Q6H PRN PRN Reason: Nausea And Vomiting Stop: 01/09/24 19:46 Oxycodone HCl (Oxycodone Hcl Ir 5 Mg Tab (Immediate Release)) 5 mg PO Q6H PRN PRN Reason: Pain Stop: 12/24/23 19:46 Potassium Chloride (Potassium Chloride Crtab 20 Meq Tabcr) 20 meq PO QAM [facility] Stop: 01/10/24 08:59 Sildenafil Citrate (Sildenafil Citrate 20 Mg Tablet) 20 mg PO TID [facility] Stop: 01/09/24 20:59 Hospital Stay Data Consultations 12/10/23 12:48 ED Decision to Admit Stat 12/10/23 13:21 Consult Gastroenterology Routine 12/10/23 15:14 Consult Cardiology Routine 12/10/23 15:35 Consult Pulmonology Routine Diagnostic Imagining Performed 12/10/23 11:00 CT abd pelvis IV con only Stat CT angio chest PE protocol Stat CT head/brain wo con Stat 12/10/23 15:08 MRI Brain [MR brain wo/w con] Urgent 12/10/23 15:10 MR lumbar spine wo/w con Urgent US liver Urgent Chest X-Ray 12/10/23 10:15 XR chest 1V portable CLINICAL HISTORY: Chest pain, nonspecific COMPARISON STUDY: Chest radiograph September 19, 2020. Chest CT May 27, 2019. FINDINGS: There is no pneumothorax or pleural effusion. Pulmonary vascularity is normal. There is no consolidation. Moderate cardiomegaly is noted. Bilateral hilar prominence is likely due to dilated central pulmonary arteries. IMPRESSION: 1. No acute cardiopulmonary findings. 2. Cardiomegaly. 3. Dilated central pulmonary arteries. This raises the possibility of pulmonary arterial hypertension. ACT 112: Negative or not required by law. Electronically signed by: Que Hutchinson M.D. 12/10/2023 11:00 AM Abdomen/Pelvis CT 12/10/23 11:00 CT OF THE ABDOMEN AND PELVIS WITH CONTRAST CLINICAL HISTORY: Jaundice. COMPARISON STUDY: CT of the abdomen and pelvis August 05, 2023. TECHNIQUE: Following IV administration of 111 mL of Optiray, axial images of the abdomen and pelvis were obtained from the lung bases to the proximal femurs. Images were reviewed in the axial, sagittal, and coronal planes. IV contrast was administered without complication. Automated exposure control was utilized for the study. A dose lowering technique was utilized adhering to the principles of ALARA. CT DOSE: 2962.71 mGy.cm FINDINGS: Please note that the chest CT will be reported separately. Cardiomegaly, dilated right heart chambers and dilated central pulmonary arteries are better depicted on that exam. No pneumatosis, free air or portal venous gas is present. The IVC and hepatic veins are dilated. Nodularity of the liver surface is noted. Multiple subcentimeter hypodense hepatic lesions favor cysts. Sensitivity for detection of hypervascular liver lesions is diminished on this exam. The main, left and right portal veins are somewhat diminutive but patent. The adrenal glands and pancreas are unremarkable. There is no biliary or pancreatic ductal dilatation. Spleen is moderately enlarged. There is moderate gallbladder wall thickening. There are tiny gallstones within the gallbladder. The gallbladder is not distended. Periportal edema is noted. Hepatic arteries are prominent. Retroperitoneal collaterals are present. There is trace fluid within the pelvis. There is no evidence for a bowel obstruction. The appendix is normal. Water attenuation renal lesions reflect cysts. There is an indeterminate 1.2 cm lesion arising from the lower pole the left kidney which measures above water attenuation. This could reflect a complex cyst or small solid renal lesion. Bilateral renal calculi measure up to 5 mm. There are no ureteral calculi. There is no hydronephrosis. The endometrium appears thickened, measuring approximately 1.6 cm in thickness. There is no lymphadenopathy. Subtle small skeletal lesions are noted. These are most evident within the sacrum. A mild fracture of the superior endplate of L4 is new since CT of August 05, 2023. IMPRESSION: 1. Cirrhotic liver with evidence of portal hypertension including moderate splenomegaly and varices formation. Trace fluid within the pelvis. Although not definitive, the CT findings raise the possibility of a cardiac etiology for cirrhosis. 2. Small gallstones within the gallbladder. Moderate gallbladder wall thickening without gallbladder distention. The gallbladder wall thickening is nonspecific although not highly suggestive of acute cholecystitis. This could be related to liver disease/portal hypertension. No biliary or pancreatic ductal dilatation. 3. Numerous subtle skeletal lesions. Although these may be metabolic, findings are suspicious for myeloma or metastatic disease. Oncology consultation is recommended. 4. Thickened endometrium. Nonemergent pelvic ultrasound correlation with postmenopausal bleeding is recommended. 5. Bilateral nephrolithiasis. No ureteral calculi. No hydronephrosis. Indeterminate 1.2 cm left lower pole renal lesion. 6. Mild fracture of the superior endplate of L4. This is age indeterminate but new since CT of August 05, 2023. ACT 112: Positive. There are findings on this exam that require communication between the performing entity and the patient following Patient Test Result Information Act ([place] Act 112) guidelines. Electronically signed by: Que Hutchinson M.D. 12/10/2023 12:25 PM Chest CTA 12/10/23 11:00 CT ANGIOGRAM OF THE CHEST CLINICAL HISTORY: Change in mental status. Jaundice. COMPARISON STUDY: Chest CT dated 05/27/2019. Chest x-ray dated 12/10/2023. TECHNIQUE: Following the IV administration of 111 cc of Optiray 350, CT angiogram of the chest was performed from the upper abdomen to the thoracic inlet utilizing the pulmonary embolus protocol. Images are reviewed in the axial, sagittal, and coronal planes. 3-D MIPS images are created and assessed. IV contrast was administered without complication. A dose lowering technique was utilized adhering to the principles of ALARA. FINDINGS: Thyroid: Imaged portions of the thyroid gland are normal in size and attenuation. Thoracic aorta: The thoracic aorta is normal in caliber and demonstrates standard 3-vessel arch anatomy. The thoracic aorta is not well-opacified. Pulmonary vasculature: The pulmonary trunk is markedly dilated, measuring 4.2 cm diameter. This indicates pulmonary artery hypertension. There are no filling defects identified in main, lobar, or segmental pulmonary branches to suggest pulmonary embolus. Heart: The heart is markedly enlarged and without pericardial effusion. The coronary arteries are densely calcified. Lungs and pleural spaces: There is no airspace consolidation or pleural effusion. The trachea and central airways are clear. Scattered calcified granulomas are observed. Foci of scarring/atelectasis are noted throughout both lungs. Mediastinum: There is no mediastinal lymphadenopathy. Gladys: Clear. Axillae: There is no axillary lymphadenopathy. Upper abdomen: A small hiatal hernia is noted. The liver is cirrhotic in morphology and heterogeneous attenuation with nodularity of the surface contour. The spleen is enlarged. Foci of cortical scarring are seen in the upper pole of the left kidney. Nonobstructive calculi in the upper pole of both kidneys measure up to 6 mm. There are calcified gallstones. Pericholecystic infiltration is nonspecific and may be related to portal hypertension/adjacent hepatocellular disease. Skeletal structures: The skeletal structures are heterogeneously osteopenic. Subtle sclerotic foci/lesions are seen throughout the bony structures, most apparent in the sternum. IMPRESSION: 1. There is no evidence of pulmonary embolus in the main, lobar, or segmental pulmonary arteries. 2. Marked cardiomegaly with evidence of pulmonary artery hypertension. 3. There is no airspace consolidation or pleural effusion. 4. Cirrhotic liver morphology and splenomegaly. See report of abdominal CT performed concurrently for detailed intra-abdominal findings. 5. Subtle sclerotic foci are seen throughout the visualized bony structures. These are nonspecific, and although this could potentially be on a metabolic basis, bony metastatic disease is not excluded. Correlate for any oncological history. 6. Additional findings as above. ACT 112: Negative or not required by law. Electronically signed by: Caden Mueller M.D. 12/10/2023 12:[address] 12/10/23 11:00 CT OF THE HEAD WITHOUT CONTRAST CLINICAL HISTORY: Altered mental status. COMPARISON STUDY: Head CT January 15, 2016. TECHNIQUE: Helical axial images of the head were obtained without IV contrast. Automated exposure control was utilized for the study. A dose lowering technique was utilized adhering to the principles of ALARA. FINDINGS: No acute intracranial hemorrhage, midline shift or mass effect is present. The ventricular system is unremarkable. The basal cisterns are patent. No extra-axial collections are present. There are no findings to suggest acute dural sinus thrombosis or acute territorial infarct. No significant calvarial abnormalities are present. Visualized portions of the sinuses and mastoid air cells are clear. IMPRESSION: No acute intracranial findings. ACT 112: Negative or not required by law. Electronically signed by: Que Hutchinson M.D. 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 Acute hypoxic respiratory Failure Dyspnea on Exertion Pt presenting with AGUILAR and dizziness Hypotensive with a slight increase in oxygen requirement at this time In setting of right heart failure Oxygen supplementation as needed Right Heart failure in the setting of Pulmonary Hypertension Known Hx of pulmonary HTN, noncompliant with full treatment for PAH due to cost. States currently only taking her sildenafil 20mg TID and home Lasix 20mg daily with KCl supplementation Was previously prescribed ambrisentan 10mg daily but was not taking it due to cost Follows with [facility] pulmonology Had right sided heart cath in 2019, was lost to follow up for some time BNP of 8 Echo noting worsening PAH and right sided heart failure, tricuspid regurg Chest CTA noting "marked cardiomegaly with evidence of pulmonary artery hypertension" Cardiology consulted for right sided heart failure recs in this setting -recommending transfer to tertiary care center Pulmonology consulted for PAH -recommending transfer to tertiary [facility] for IV prostacyclin. Notes use of the ambrisentan pt previously stopped taking CI in setting of cirrhosis Continue with home sildenafil, lasix and KCl regimen Pt accepted for transfer and further care at [facility]. Cirrhosis Congestive Hepatopathy CT abd/pelvis noting "cirrhotic liver with evidence of portal hypertension including moderate splenomegaly and varices formation" Likely in setting of above right sided heart failure Liver enzymes particularly t bili significantly elevated at 12with indirect hyperbilirubinemia Pt jaundiced on exam, scleral icterus noted Pt has been scheduled to have a liver biopsy multiple times over the last 4 years. Was due to have one tomorrow 12/10, after rescheduling the last due to a sore throat per [facility] records Follows with GI GI consult placed for further recs. Pt being transferred to [facility] Hepatic Encephalopathy Pt came in confused to the ED Ammonia level could not be evaluated due to sample color In setting of above Head CT unremarkable Brain MRI pending Currently with improving mentation GI consulted, pt being transferred Iron Def Anemia Follows with hematology gets iron infusions Splenomegaly Thrombocytopenia Appears chronic in setting of liver disease above Consider peripheral smear Appears chronic Follows with hematology outpt Possible metastatic Disease Lumbar fracture Noted on CT abd/pelvis lytic lesions Pt with noted chronic hx of back pain MRI lumbar spine pending Gallstones Gallbladder wall thickening Calcified gallstones noted on chest CTA Noted on CT abd/pelvis imaging US gallbladder pending Demand ischemia Trops slightly elevated at 35.2 to 34.2 EKG NSR with R atrial enlargement and right ventricular hypertrophy noted Likely demand in setting above, doubt ACS Elevated D Dimer D dimer elavted at 1120 Chest CTA noting no PE Thickened Endometrium Noted on CT abd/pelvis Nonemergent pelvis US recommended CODE STATUS: Does not intubation or ventilatory support. Agreeble to chest compressions and defibrillator use DVT prophylaxis: SCDs in setting of thrombocytopenia Diet: Gluten free/HH/Low sodium Dispo: Awaiting transfer to [facility] Total Time Total Time Spent Total Time Spent (In Minutes): > 30 minutes
[2023-12-10 18:07] LABS: Acetaminophen 4 ug/ml (10-30); Salicylate < 3.0 mg/dl (3.0-30)
[2023-12-10 19:09] LABS: Folate (Folic Acid),Ser orPlas 21.45 ng/ml (>5.38)
--- NOTE | 2023-12-10 20:13 | Ultrasound Report ---
Exam(s): US LIVER EXAM: US Abdomen Limited, Right Upper Quadrant CLINICAL HISTORY: Reason for exam: cirrhosis, gallbladder f/u. TECHNIQUE: Real-time ultrasound of the right upper quadrant with image documentation. COMPARISON: CT 12/10/2023 FINDINGS: Liver: Heterogeneous appearance of the liver. Nodular contour. Liver measures 15 cm. Hypoechoic area in the left hepatic lobe measuring 11 x 8 x 10 mm. There is a small simple cyst in the right hepatic lobe measuring 9 x 9 x 10 mm. No suspicious lesion identified. The portal vein was not imaged. Gallbladder: No cholelithiasis. Mucosal thickening in the gallbladder likely reactive to the liver measuring up to 4 mm. Negative Copeland's. Common bile duct: CBD nondilated measuring 4 mm. Pancreas: Unremarkable as visualized. Right kidney: Unremarkable. No hydronephrosis. IMPRESSION: Cirrhotic liver. Hypoechoic lesion in the left hepatic lobe measuring 11 mm which is incompletely characterized. Consider MRI abdomen with and without contrast to evaluate for HCC. Electronically signed by: Antwon Esteves MD 12/10/23 20:12 PM
--- OUTSIDE RECORDS SUMMARY | 2023-12-10 20:23 | External Medical Summary | Summary of Care ---
Author Name Unknown Organization [facility] Address [address] [facility] [address] Phone [phone] Care Team Providers Care Property Claims Adjuster Name Role Phone Sarah Galaviz DO Primary Care Provider [phone] Reason for Visit * Reason Comments Infusion Monoferric * Episode Based Medications (Routine) - Authorized Specialty Diagnoses / Procedures Referred By Contac t Referred To Contact Diagnoses Iron deficiency anemia, unspecified iron deficiency anemia type Procedures CO INJ. FE DERISOMALTOSE 10 MG Tammy Hammond CRNP [address] [place] [address] Anc Hem/Onc [facility] Priscila [address] [place] [phone] Referral ID Status Reason Start Date Expiration Date V isits Requested Visits Authorized [id number] Authorized 12/03/2023 04/03/2024 [id number] Encounter Details Date Type Department Care Team (Latest Contact Info) Description 12/08/2023 11:45 AM EDT Hem/Onc Treatment Hematology/Oncology Treatment, [address] [phone] Priscila, Chair 1 Hem Onc [address] [place] [address] Iron deficiency anemia, unspecified iron deficiency anemia type* Allergies No known active allergiesdocumented as of this encounter (statuses as of 12/08/2023) Medications Medication Sig Dispensed Refills Start Date End Date Status Acetaminophen ER (TYLENOL 8 HOUR ARTHRITIS PAIN) 650 MG TBCR Take 1 Tablet by mouth every 8 hours as needed for Fever. 0 Active Fluticasone Propionate 50 MCG/ACT Nasal Suspension Administer 2 Sprays into each nostril daily. 16 g 3 06/23/2020 Active GENERIC EXTERNAL MEDICATION Balance of nature- fruit & vegetable vitamin 0 Active Ambrisentan 10 MG Oral Tablet (Letairis) Take 1 Tablet by mouth daily. 30 Tablet 11 10/01/2021 Active Potassium Chloride Sheron ER 20 MEQ Oral Tablet Extended ReleaseIndications: Essential hypertension with goal blood pressure less than 130/80 Take 1 Tablet by mouth in the morning. 30 Tablet 11 12/09/2022 Active Albuterol Sulfate HFA 108 (90 Base) MCG/ACT Inhalation Aerosol SolutionIndications :Acute bronchitis, antibiotics not indicated Inhale 2 Puffs by mouth every 6 hours as needed (chest tightness, sob). 18 g 1 08/13/2023 Active Additional Information Patient not taking.Reported on 12/02/2023 Sildenafil Citrate 20 MG Oral Tablet (Revatio)Indication s:PHT (pulmonary hypertension) (HCC) Take 1 tablet in the morning, 1 tablet at noon, and 1 tablet before bedtime. Generic for Revatio. 90 Tablet 11 09/23/2023 Active Iron-Vitamin C 65-125 MG Oral Tablet (Vitron C)Indications:Iron deficiency anemia, unspecified iron deficiency anemia type Take 1 Tablet by mouth in the morning. 90 Tablet 1 11/06/2023 Active Benzonatate 100 MG Oral CapsuleIndications: Acute cough Take 1 Capsule by mouth 3 times a day as needed for Cough. 10 Capsule 0 11/20/2023 Active Additional Information Patient not taking.Reported on 12/02/2023 Furosemide 20 MG Oral Tablet (Lasix) Take 1 TABLET BY MOUTH in the morning. 90 Tablet 3 11/25/2023 Active Hospital, Clinic, or Other Facility Administered Medication Ordered Dose Route Frequency Start Date End Date Status albuterol sulfate (PROVENTIL) (2.5 MG/3ML) 0.083% inhalation solution 2.5 mgIndications:PHT (pulmonary hypertension) (HCC),Tobacco abuse, in remission,Pancytopenia (HCC),Environmental exposure,Secondhand smoke exposure 2.5 mg NEBULIZER Q4H PRN 07/08/2019 Active Albuterol Sulfate (Proventil) (2.5 MG/3ML) 0.083% inhalation solution 2.5 mgIndications:Pulmonary hypertension (HCC) 2.5 mg NEBULIZER ONCE PRN 10/31/2023 Active documented as of this encounter (statuses as of 12/08/2023) Active Problems Problem Noted Date Diagnosed Date Iron deficiency anemia 12/03/2023 Nocturnal hypoxemia 10/31/2023 Sleep-disordered breathing 10/31/2023 Celiac disease 10/30/2023 Unspecified cirrhosis of liver 04/14/2020 Thrombocytopenia 10/15/2019 GENI positive 07/07/2019 PHT (pulmonary hypertension) 07/06/2019 Overview: Suspected on Echocardiogram when Hgb low. 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 Secondhand smoke exposure 07/06/2019 Environmental exposure 07/06/2019 Overview: Chickens, Ducks Pancytopenia documented as of this encounter (statuses as of 12/08/2023) Immunizations Name Administration Dates Next Due Pneumococcal Polysaccharide PPV23 (Pneumovax) 04/21/2020 Seasonal Influenza Virus Vac cine, Unspecified Formulation 10/15/2019 Seasonal Influenza, PF, 6 M & above, IM , (FluLaval or Fluzone) 08/13/2023,07/10/2020,10/15/2019 TDAP (age 10 and older)(Boostrix) 10/15/2019 Zoster Vaccine Recombinant (Shingrix) 07/10/2020 ,04/14/2020 documented as of this encounter Social History Tobacco Use Types Packs/Day Years Used Date Smoking Tobacco: Former Cigarettes 1 38.7 1 981 - 05/27/2019 Smokeless Tobacco: Never Comments:stopped smoking whi le having kids Alcohol Use Standard Drinks/Week Comments No 0 (1 standard drink = 0.6 oz pur e alcohol) PHQ-2 Answer Date Recorded PHQ-2 Score 1 09/28/2019 Hunger Vital Sign Answer Date Recorded Worried About Running Out of Food in the Last Ye ar Never true 05/27/2019 Ran Out of Food in the Last Year Never true 05/27/2019 Sex and Gender Information Value Date Recorded Sex Assigned at Not on file Gender Identity Not on file Sexual Orientation Not on file Job Start Date Occupation Industry Not on file Not on file Not on file documented as of this encounter Last Filed Vital Signs Vital Sign Reading Time Taken Comments Blood Pressure 93/60 12/08/2023 12:48 PM EDT Pulse 98 12/08/2023 12:48 PM EDT Temperature 36.6 C (97.9 F) 12/08/2023 12:48 PM E DT Respiratory Rate 18 12/08/2023 12:48 PM EDT Oxygen Saturation 98% 12/08/2023 12:48 PM EDT Inhaled Oxygen Concentration - - Weight - - Height - - Body Mass Index - - documented in this encounter Nursing Notes * Jenna Robertson LPN - 12/08/2023 12:48 PM EDT 1200: Pt arrived for Monoferric infusion. PIV in RFA. Pt tolerated well. VSS. Pt aware of 30 minuteobservation. No complaints at this time. 1310: Pt tolerated Monoferric infusion well. PIV removed intact. Pt to have labs drawn in approx 4 weeks. Discharged in stable condition. documented in this encounter Plan of Treatment Upcoming Encounters Date Type Department Care Team (Latest Contact Info) Description 4 7:15 AM EDT Cardiac Studies Cardiac Studies, [facility] [address] [facility] [place] [address] 4 8:30 AM EDT PulmDiagnostic Pulmonary Function Lab, [facility] [address] [facility] [place] [address] [place], Pft [address] [facility] [place] [address] 4 1:30 PM EDT PulmDiagnostic Sleep Lab [facility] [address] [place] [address] [facility], Sleep Med Home Study [facility] [address] [facility] [place] [address] 4 11:40 AM EDT Office Visit Hepatology, [facility] [address] [place] [address] Evangelina Dorado DO [address] [place] [address] 4 11:00 AM EDT Laboratory Laboratory [address] [place] [phone] [place] [address] 4 1:00 PM EDT Office Visit Family Practice [facility] [address] [place] [address] Sarah Galaviz DO [address] [place] [address] 4 2:00 PM EDT Office Visit Hematology/Onco logy [facility] [address] [place] [phone] Anthony Ritchie MD [address] [place] [address] 4 11:00 AM EDT Hospital Encounter OR GL, Operating Room, [facility] - 4th Floor [address] [place] [address] Favian Escalante MD [address] [place] [address] 4 11:00 AM EDT - 4 12:12 PM EDT Surgery OR [facility], Operating Room, [facility] - 4th Floor [address] [place] [address] Favian Escalante MD [address] [place] [address] ESOPHAGOGASTRODUODENOSCOPY (EGD), FLEXIBLE, TRANSORAL, ENDOSCOPIC ULTRASOUND Scheduled Procedures Name Priority Associated Diagnoses Date/Ti me ESOPHAGOGASTRODUODENOSCOPY ( EGD), FLEXIBLE, TRANSORAL, ENDOSCOPIC ULTRASOUND Hepatic cirrhosis, unspecified hepatic cirrhosis type, unspecified whether ascites present (HCC) Anemia, unspecified type 03/01/2024 11:00 AM EDT Health Maintenance Due Date Last Done Comments HIV Screening 1977 Hepatitis C Screening 1980 HPV/Co-Test 1992 Cologuard 12/08/2007 Colonoscopy 12/08/2007 Colorectal Cancer Screening 12/08/2007 Fecal Occult Blood Test 12/08/2007 Sigmoidoscopy 12/08/2007 Cervical Cancer Screening 11/26/2013 Pap Smear 11/26/2013 11/26/2010 Mammogram 11/11/2020 11/11/2019, 01/14/2011 Pneumococcal Vaccine: Pediatrics (0 to 5 Years) and At-Risk Patients (6 to 64 Years) (2 of 2 - PCV) 04/21/2021 04/21/2020 Hepatitis B (1 of 3 - Risk 3-dose series) 2022 COVID-19 Vaccine ( - season) 2023 Depression Screening 08/13/2024 08/13/2023 Lipid Panel 10/19/2024 10/19/2019, 06/17, 11/10/2010, Additional history exists Diabetes Screening 10/23/2026 10/23/2023, 1 10/22/2022, 08/13/2023, Additional history exists DTaP,Tdap,and Td Vaccines (2 - Td or Tdap) 10/15/2029 10/15/2019 LUNG CANCER SCREENING - USE SMARTSET 81352 Completed 07/09/2019 Zoster Vaccines Completed 07/10/2020, 04/14/2020 Influenza Vaccine (FLU shot) Completed , 07/10/2020, 10/15/2019, Additional history exists GARDASIL-HPV IMMUNIZATION SERIES Aged Out No longer eligible based on patient's age to complete this topic MENINGOCOCCAL (MENACTRA/MENVEO) Aged Out No longer eligible based on patient's age to complete this topic documented as of this encounter Medical Devices Not on filedocumented as of this encounter Visit Diagnoses Diagnosis Iron deficiency anemia, unspecified iron deficiency anemia type- Primary Hepatic cirrhosis, unspecified hepatic cirrhosis type, unspecified whether ascites present (HCC) Anemia, unspecified type documented in this encounter Administered Medications Active Administered Medications - up to 3 most recent administrations Medication Order MAR Action Action Date Dose Rate Site diphenhydrAMINE (Benadryl) inj 50 mg 50 mg, IV Push, ONCE PRN Other, Hypersensitivity Reaction, Starting on Fri12/08/23 at 1207, Until Fri12/09/23 at 1206, For 24 hours EPINEPHrine 1 MG/ML inj 0.3 mg 0.3 mg, Intramuscular, ONCE PRN Other, Hypersensitivity Reaction or Anaphylaxis, Starting on Fri12/08/23 at 1207, Until Fri12/09/23 at 1206, For 24 hours hEParin 100 UNIT/ML Lock Flush inj 500 Units 500 Units (5 mL), IV Lock, PRN Other, IV Flush, Starting on Fri12/08/23 at 1207, Until Fri12/09/23 at 1206, For 24 hours, Do not flush if lock, PICC, or central line not in place; IV infusing or unable to flush. Hydrocortisone Sod Suc (PF) (Solu-Cortef) inj 100 mg 100 mg, IV Push, ONCE PRN Other, Hypersensitivity Reaction, Starting on Fri12/08/23 at 1207, Until Fri12/09/23 at 1206, For 24 hours NSS infusion Intravenous, at 50 mL/hr, PRN, Starting on Fri12/08/23 at 1315, Until Discontinued, Maintenance line Start Infusion 12/08/2023 12:07 PM EDT 50 mL/hr oxygen GAS Inhalation, OXYGEN, First dose on Fri12/08/23 at 1600, Until Discontinued, Device/Managed by: Low Flow Device, Goal SPO2 (%): 91-95, Starting Device: Nasal Cannula, Initial Flow Rate (LPM): 2, Lowest Support: Nasal Cannula: Flow 0-6 LPM. Titrate up/down by 1 LPM., Higher Support: Non-Rebreather (NRB) Mask: Minimum of 10 LPM. Titrate to maintain bag inflation., Titration Interval: Q2 minutes and as needed., Notify Provider: For sudden DECREASE in resting SPO2 to less than 85% and when escalating delivery device., Wean patient off Oxygen when the oxygen saturation is greater than or equal to 93% sodium chloride 0.9 % flush central line 10 mL 10 mL, IV Push, PRN Other, IV Flush, Starting on Fri12/08/23 at 1207, Until Fri12/09/23 at 1206, For 24 hours, Do not flush if lock, PICC, or central line not in place; IV infusing or unable to flush. Inactive Administered Medications - up to 3 most recent administrations Medication Order MAR Action Action Date Dose Rate Site Ferric derisomaltose (Monoferric) 1,000 mg in NSS 250 mL ivpb 1,000 mg, IV Piggyback, ONCE, 1 dose, On Fri12/08/23 at 1245, Administer over 30 Minutes, DOSING GUIDELINES: For patient weight LESS THAN 50 kg: Dose 20 mg/kg For patient weight 50 Kg or greater: Dose 1000 mg Start Infusion 12/08/2023 12:07 PM EDT 1,000 mg 500 mL/hr documented in this encounter Care Teams Property Claims Adjuster Relationship Specialty Start Date End Date Sarah Galaviz DO [address] [place] [address] PCP - General Family Medicine 06/30/19 documented as of this encounter
--- OUTSIDE RECORDS SUMMARY | 2023-12-10 20:23 | External Medical Summary | Summary of Care ---
Author Name Unknown Organization [facility] Address [address] [facility] [place] [address] Phone [phone] Care Team Providers Care Household Appliance Installer Name Role Phone Sarah Galaviz DO Primary Care Provider [phone] Reason for Visit * Reason Onset Date Comments Appointment 12/03/2023 Encounter Details Date Type Department Care Team (Late st Contact Info) Description 12/03/2023 Telephone OR [facility], Operating Room [facility] [address] [place] [phone] Favian Escalante MD [address] [place] [address] Appointment Allergies No known active allergiesdocumented as of this encounter (statuses as of 12/05/2023) Medications Medication Sig Dispensed Refills Start Date [...] as of this encounter (statuses as of 12/05/2023) Active Problems Problem Noted Date Diagnosed Date [...] as of this encounter (statuses as of 12/05/2023) Immunizations Name Administration Dates Next Due Pneumococcal [...] on file documented as of this encounter Miscellaneous Notes * Telephone Encounter - Tiffany Cesar OSA - 12/05/2023 2:42 PM EDT Called pt and she is off 12/11/23, pt is setup for EUS on 03/01/24 at [facility]. * Telephone Encounter - Amna Nascimento RN - 12/03/2023 10:20 AM EDT Per CZ on 12/03/2023 She is not a candidate for here. Her echo from 2020 demonstrates severe pulmonary HTN, believed to be primary in origin. She is noncompliant with her prescribed pulmonary vasodilators and refuses oxygen therapy, so she is also an untreated patient with severe pulmonary HTN Spoke with patient and made aware. She will need to complete CHENG and follow up with pulmonary, PFT which are scheduled for December to determine if she a candidate for procedure in [place] or if [place] is recommended. Please reach out to reschedule documented in this encounter Plan of Treatment Upcoming Encounters Date Type Department Care Team (Latest Contact Info) Description 4 11:45 AM EDT Hem/Onc Treatment Hematology/Onco logy Treatment, [place] [address] [place] [phone] Priscila, Chair 1 Hem Onc Scenery [address] [place] [address] 4 7:15 AM EDT Cardiac Studies Cardiac Studies, [facility] [address] [place] [address] 4 8:30 AM EDT PulmDiagnostic Pulmonary Function Lab, [facility] [address] [place] [address] [place], [address] [place] [address] 4 1:30 PM EDT PulmDiagnostic Sleep Lab [facility] [address] [place] [address] [facility] Med Home Study [facility] [place] [address] 4 11:40 AM EDT Office Visit Hepatology, [facility] [address] [place] [address] Evangelina Dorado, DO [address] [place] [address] 4 11:00 AM EDT Laboratory Laboratory [address] [place] [phone] [place], Lab [address] [place] [address] 4 1:00 PM EDT Office Visit [facility] [address] [place] [address] Sarah Galaviz DO [address] [place] [address] 4 2:00 PM EDT Office Visit Hematology/Onco logy Elma Francois [place] [address] [place] [phone] Anthony Ritchie MD [address] [place] [address] 4 11:00 AM EDT Hospital Encounter OR [facility], Operating Room, [facility] - 4th Floor [address] [place] [address] Favian Escalante MD [address] [place] [address] 4 11:00 AM EDT - 4 12:12 PM EDT Surgery OR [facility], Operating Room, [facility] - 4th Floor [address] [place] [address] Favian Escalante MD [address] [place] [address] ESOPHAGOGASTRODUODENOSCOPY (EGD), FLEXIBLE, TRANSORAL, ENDOSCOPIC ULTRASOUND Scheduled [...] - Risk 3-dose series) 2022 COVID-19 Vaccine (1 - season) 2023 Depression Screening 08/13/2024 08/13/2023 Lipid Panel 10/19/2024 10/19/2019, 06/17, 11/10/2010, Additional history exists Diabetes Screening 10/23/2026 10/23/2023, 1 10/22/2022, 08/13/2023, Additional history exists DTaP,Tdap,and Td Vaccines (2 - Td or Tdap) 10/15/2029 10/15/2019 LUNG CANCER SCREENING - USE SMARTSET [id number] Completed 07/09/2019 Zoster Vaccines Completed 07/10/2020, 04/14/2020 Influenza Vaccine (FLU shot) Completed , 07/10/2020, 10/15/2019, Additional history exists GARDASIL-HPV IMMUNIZATION SERIES Aged Out No longer eligible based on patient's age to complete this topic MENINGOCOCCAL (MENACTRA/MENVEO) Aged Out No longer eligible based on patient's age to complete this topic documented as of this encounter Medical Devices Not on filedocumented as of this encounter Care Teams Household Appliance Installer Relationship Specialty Start Date End Date Sarah Galaviz DO [address] [place] [address] PCP - General Family Medicine 06/30/19 documented as of this encounter
--- OUTSIDE RECORDS SUMMARY | 2023-12-10 20:23 | External Medical Summary | Summary of Care ---
Author Name Unknown Organization [facility] Address [address] [facility] [place] [address] Phone [phone] Care Team Providers Care Concrete Rod Buster Name Role Phone Sarah Galaviz DO Primary Care Provider [phone] Reason for Visit * Reason Onset Date Comments Precert Future 12/03/2023 Monoferric Encounter Details Date Type Department Care Team (Late st Contact Info) Description 12/03/2023 Telephone Hematology/Oncology [facility] [address] [facility] [address] [place] [phone] Tammy Hammond CRNP [address] [place] [address] Precert Future (Monoferric) Allergies No known active allergiesdocumented as of [...] encounter Miscellaneous Notes * Telephone Encounter - Evangelina Barber OSA - 12/05/2023 8:42 AM EDT Called pt and scheduled apt for Friday per pt pref * Telephone Encounter - Julianne Georges RN - 12/05/2023 7:53 AM EDT Referral entered. Scheduling: please call patient to schedule 2 hour appt "monoferric" (Tammy). Thanks! * Telephone Encounter - Chevy Shane RN - 12/03/2023 3:21 PM EDT Orders received, beacon plan built and routed. Will await auth. documented in this encounter Plan of Treatment Upcoming Encounters Date Type Department Care Team (Latest Contact Info) Description 4 11:45 AM EDT Hem/Onc Treatment Hematology/Onco logy Treatment, [place] [address] [place] [phone] Priscila, Chair 1 Hem Onc Scenery [address] [place] [address] 4 8:00 AM EDT Hospital Encounter ENDO [facility], Endoscopy Room [facility] [address] [place] [phone] Favian Escalante MD [address] [place] [address] 4 8:00 AM EDT - 4 9:00 AM EDT Surgery ENDO [facility], Endoscopy Room [facility] [address] [place] [phone] Favian Escalante MD [address] [place] [address] ESOPHAGOGASTRODUODENOSCOPY (EGD), FLEXIBLE, TRANSORAL, ENDOSCOPIC ULTRASOUND 4 7:15 AM EDT Cardiac Studies Cardiac Studies, [facility] [address] [place] [address] 4 8:30 AM EDT PulmDiagnostic Pulmonary Function Lab, [facility] [address] [place] [address] West, Pft [address] [place] [address] 4 1:30 PM EDT PulmDiagnostic Sleep Lab [facility] [address] [place] [address] [facility], Sleep Med Home Study [facility] [address] [place] [address] 4 11:40 AM EDT Office Visit Hepatology, [facility] [address] [place] [address] Evangelina Dorado, DO [address] [place] [address] 4 11:00 AM EDT Laboratory Laboratory [address] [place] [phone] [address], [address] [place] [address] 4 1:00 PM EDT Office Visit Family Practice [facility] [address] [place] [address] Sarah Galaviz, DO [address] [place] [address] 4 2:00 PM EDT Office Visit Hematology/Onco logy Elma Francois [place] [address] [place] [phone] Anthony Ritchie MD [address] [place] [address] Scheduled Procedures Name Priority Associated Diagnoses Date/Ti me ESOPHAGOGASTRODUODENOSCOPY ( EGD), FLEXIBLE, TRANSORAL, ENDOSCOPIC ULTRASOUND Hepatic cirrhosis, unspecified hepatic cirrhosis type, unspecified whether ascites present (HCC) Anemia, unspecified type 12/11/2023 8:00 AM EDT Health Maintenance Due Date Last [...] 10/15/2019 LUNG CANCER SCREENING - USE SMARTSET [id number] Completed 07/09/2019 Zoster Vaccines Completed 07/10/2020, 04/14/2020 [...] filedocumented as of this encounter Care Teams Concrete Rod Buster Relationship Specialty Start Date End Date Sarah Galaviz DO [address] [place] [address] PCP - General Family Medicine 06/30/19 documented as of this encounter
--- OUTSIDE RECORDS SUMMARY | 2023-12-10 20:24 | External Medical Summary ---
Author Name Unknown Address Unknown Organization K01:[facility] [address] [place] [address] Laboratory Report Ordering Provider Test Date Status ALEA MEJIAS 12/02/2023 11:24:14 Final Observation Date Value Abnormality Reference (Units ) Status Iron 12/02/2023 11:24:14 46 33-151 (ug/dL) Final Iron-binding capacity 12/02/2023 11:24:14 373 250-425 (ug/dL) Final Transferrin Sat % 12/02/2023 11:24:14 12 Below low normal 15-55 (%) Final Performing Location LABORATORY C - [address] [place] [id number]
--- OUTSIDE RECORDS SUMMARY | 2023-12-10 20:24 | External Medical Summary | Summary of Care ---
Author Name Unknown Organization [facility] Address [address] [place] [address] Phone [phone] Care Team Providers Care It Data Architect Name Role Phone Sarah aGlaviz DO Primary Care Provider [phone] Reason for Visit * Reason Comments eRx-Medication Refill Encounter Details Date Type Department Care Team (Late st Contact Info) Description 11/25/2023 Refill Pulmonary Medicine, [place] [address], [place] [id number] Sarah Galaviz DO [address] [place] [address] Allergies No known active allergiesdocumented as of this encounter (statuses as of 11/25/2023) Medications Medication Sig Dispensed Refills Start Date [...] Sheron ER 20 MEQ Oral Tablet Extended ReleaseIndications :Essential hypertension with goal blood pressure less than 130/80 Take 1 Tablet by mouth in the morning. 30 Tablet 11 12/09/2022 Active Albuterol Sulfate HFA 108 (90 Base) MCG/ACT Inhalation Aerosol SolutionIndication s:Acute bronchitis, antibiotics not indicated Inhale 2 Puffs by mouth every 6 hours as needed (chest tightness, sob). 18 g 1 08/13/2023 Active Sildenafil Citrate 20 MG Oral Tablet (Revatio)Indicatio ns:PHT (pulmonary hypertension) (HCC) Take 1 tablet in the morning, 1 tablet at noon, and 1 tablet before bedtime. Generic for Revatio. 90 Tablet 11 09/23/2023 Active Iron-Vitamin C 65-125 MG Oral Tablet (Vitron C)Indications:Iron deficiency anemia, unspecified iron deficiency anemia type Take 1 Tablet by mouth in the morning. 90 Tablet 1 11/06/2023 Active Benzonatate 100 MG Oral CapsuleIndications :Acute cough Take 1 Capsule by mouth 3 times a day as needed for Cough. 10 Capsule 0 11/20/2023 Active Azithromycin 250 MG Oral Tablet (Zithromax)Indicat ions:Acute non-recurrent maxillary sinusitis Take 2 tabs by mouth on the first day, then 1 tab daily on days two through five 6 Tablet 0 11/20/2023 4 Active Furosemide 20 MG Oral Tablet (Lasix) Take 1 TABLET BY MOUTH in the morning. 90 Tablet 3 11/25/2023 Active Furosemide 20 MG Oral Tablet (Lasix) Take 1 TABLET BY MOUTH in the morning. 30 Tablet 5 06/20/2023 4 Discontinue d(Refill) Hospital, Clinic, or Other Facility Administered Medication [...] as of this encounter (statuses as of 11/25/2023) Active Problems Problem Noted Date Diagnosed Date Nocturnal hypoxemia 10/31/2023 Sleep-disordered breathing 10/31/2023 Celiac disease 10/30/2023 Unspecified cirrhosis of liver 04/14/2020 Thrombocytopenia 10/15/2019 GENI positive 07/07/2019 PHT (pulmonary hypertension) 07/06/2019 Overview: Suspected on Echocardiogram when Hgb low. 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 Secondhand smoke exposure 07/06/2019 Environmental exposure 07/06/2019 Overview: Chickens, Ducks Pancytopenia documented as of this encounter (statuses as of 11/25/2023) Immunizations Name Administration Dates Next Due Pneumococcal [...] encounter Miscellaneous Notes * Telephone Encounter - Peace Adams OSA - 11/25/2023 11:47 AM EDTRefused Prescriptions: Disp Refills Furosemide 20 MG Oral Tablet (Lasix) 30 Tab*5 Sig: Take 1 TABLET BY MOUTH in the morning.Refused By: PEACE ADAMS MReason for Refusal: Managed by another physician- documented in this encounter Plan of Treatment Upcoming Encounters Date Type Department Care Team (Latest Contact Info) Description 4 11:00 AM EDT Laboratory Laboratory [address] [place] [phone] [place], Lab [address] [place] [address] 4 8:00 AM EDT Hospital Encounter ENDO [facility], Endoscopy Room [facility] [address] [place] [phone] Favian Escalante MD [address] [place] [address] 4 8:00 AM EDT - 4 9:00 AM EDT Surgery ENDO [facility], Endoscopy Room [facility] [address] [place] [phone] Favian Escalante MD [address] [place] [address] ESOPHAGOGASTRODUODENOSCOPY (EGD), FLEXIBLE, TRANSORAL, ENDOSCOPIC ULTRASOUND 4 7:15 AM EDT Cardiac Studies Cardiac Studies, [facility] [address] [place] [address] 4 8:30 AM EDT PulmDiagnostic Pulmonary Function Lab, [facility] [address] [place] [address] [address], [address] [place] [address] 4 1:30 PM EDT PulmDiagnostic Sleep Lab [facility] [address] [place] [address] [place], Sleep Med Home Study Jose Francisco [address] [place] [address] 4 11:40 AM EDT Office Visit Hepatology, [facility] [address] [place] [address] Evangelina Dorado, DO [address] [place] [address] 4 11:00 AM EDT Laboratory Laboratory [address] [place] [phone] [place], Lab [address] [place] [address] 4 1:00 PM EDT Office Visit Family Practice [facility] [address] [place] [address] Sarah Galaviz, DO [address] [place] [address] 4 2:00 PM EDT Office Visit Hematology/Onco logy Elma Francois [place] [address] [place] [address] Anthony Ritchie MD [address] [place] [address] Scheduled Procedures Name Priority Associated Diagnoses Date/Ti [...] 10/15/2019 LUNG CANCER SCREENING - USE SMARTSET 228[address] Completed 07/09/2019 Zoster Vaccines Completed 07/10/2020, 04/14/2020 [...] filedocumented as of this encounter Care Teams It Data Architect Relationship Specialty Start Date End Date Sarah Galaviz DO [address] [place] [address] PCP - General Family Medicine 06/30/19 documented as of this encounter
--- OUTSIDE RECORDS SUMMARY | 2023-12-10 20:24 | External Medical Summary ---
Author Name Unknown Address Unknown Organization K01:[facility] [place] [address] [place] [address] Laboratory Report Ordering Provider Test Date Status ALEA MEJIAS 12/02/2023 11:24:14 Final Observation Date Value Abnormality Reference (Units ) Status Ferritin 12/02/2023 11:24:14 21 13-150 (ng /mL) Final Postmenopausal women have hi gher ferritin levels than pre-menopausal women. The above reference interval is based on pre-menopausal women. Performing Location [facility] - [address] [place] [address]
--- OUTSIDE RECORDS SUMMARY | 2023-12-10 20:24 | External Medical Summary ---
Author Name Unknown Address Unknown Organization K01:LABORATORY [facility] - [address] [place] [address] Laboratory Report Ordering Provider Test Date Status RANDELLALEA 12/02/2023 11:24:14 Final Observation Date Value Abnormality Reference (Units ) Status Ovalocytes [Presence] in Blood by Light microscopy 12/02/2023 11:24:14 Moderate Abnormal None Seen Final Performing Location [facility] - [address] [place] [address]
--- OUTSIDE RECORDS SUMMARY | 2023-12-10 20:24 | External Medical Summary | Summary of Care ---
Author Name Unknown Organization [facility] Address [address] [place] [place] [place] [address] Phone [phone] Care Team Providers Care Director Meetings Name Role Phone Sarah Galaviz DO Primary Care Provider [phone] Encounter Details Date Type Department Care Team (Late st Contact Info) Description 12/03/2023 Telephone Hematology/Oncology [facility] [address] [place] [address] Tammy Hammond CRNP [address] [place] [address] Allergies No known active allergiesdocumented as of this encounter (statuses as of 12/03/2023) Medications Medication Sig Dispensed Refills Start Date [...] as of this encounter (statuses as of 12/03/2023) Active Problems Problem Noted Date Diagnosed Date Nocturnal hypoxemia 10/31/2023 Sleep-disordered breathing 10/31/2023 Celiac disease 10/30/2023 Unspecified cirrhosis of liver 04/14/2020 Thrombocytopenia 10/15/2019 GENI positive 07/07/2019 PHT (pulmonary hypertension) 07/06/2019 Overview: Suspected on Echocardiogram when Hgb low. 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 * Telephone Encounter - Tammy Hammond CRNP - 12/03/2023 8:26 AM EDT Results for orders placed or performed in visit on 12/02/23 IRON SCREEN, INCLUDING TIBC Result Value Ref Range Iron 46 33 - 151 ug/dL Iron Binding Capacity 373 250 - 425 ug/dL Transferrin Saturation Percent 12 (L) 15 - 55 % FERRITIN Result Value Ref Range Ferritin 21 13 - 150 ng/mL CBC Result Value Ref Range WBC 4.95 4.00 - 10.80 K/uL RBC 3.07 3.85 - 5.15 M/uL HGB 8.3 (L) 12.0 - 15.3 g/dL HCT 28.5 (L) 36.0 - 45.2 % MCV 92.8 81.5 - 97.5 fL MCH 27.0 27.0 - 34.0 pg MCHC 29.1 32.0 - 36.0 g/dL RDW 24.3 11.5 - 15.5 % PLT 98 (L) 140 - 400 K/uL MPV nRBCs 1 (H) <=0 /100 WBCs DIFFERENTIAL, AUTOMATED Result Value Ref Range WBC 4.95 4.00 - 10.80 K/uL Neutrophils % 45.5 40.0 - 75.0 % Lymphocytes % 40.2 18.0 - 42.0 % Monocytes % 10.1 1.0 - 11.0 % Eosinophils % 2.8 0.0 - 6.0 % Basophils % 0.8 0.0 - 2.0 % Immature Granulocytes % 0.6 0.0 - 2.0 % Absolute Neutrophils 2.25 1.80 - 7.70 K/uL Absolute Lymphocytes 1.99 1.00 - 4.80 K/ul Absolute Monocytes 0.50 0.00 - 1.10 K/uL Absolute Eosinophils 0.14 0.00 - 0.70 K/uL Absolute Basophils 0.04 0.00 - 0.20 K/uL Absolute Immature Granulocytes 0.03 0.00 - 0.20 K/uL DIFFERENTIAL, TECHNOLOGIST REVIEW Result Value Ref Range Ovalocytes Moderate (A) None Seen Both Hgb and iron studies have declined despite starting Vitron C once daily. Please review with patient. Would highly recommend IV iron therapy at this point. documented in this encounter Plan of Treatment Upcoming Encounters Date Type Department Care Team (Latest Contact Info) Description 8:00 AM EDT Hospital Encounter ENDO [facility], Endoscopy Room [facility] [address] [place] [address] Favian Escalante MD [address] [place] [address] 4 8:00 AM EDT - 4 9:00 AM EDT Surgery ENDO [facility], Endoscopy Room [facility] [address] [place] [phone] Favian Escalante MD [address] [place] [address] ESOPHAGOGASTRODUODENOSCOPY (EGD), FLEXIBLE, TRANSORAL, ENDOSCOPIC ULTRASOUND 4 7:15 AM EDT Cardiac Studies Cardiac Studies, [facility] [address] [place] [address] 4 8:30 AM EDT PulmDiagnostic Pulmonary Function Lab, [facility] [address] [place] [address] West, Pft [address] [place] [address] 4 1:30 PM EDT PulmDiagnostic Sleep Lab [facility] [address] [place] [address] [facility], Sleep Med Home Study [facility] [address] [place] [address] 4 11:40 AM EDT Office Visit Hepatology, [facility] [address] [place] [address] Evangelina Dorado DO [address] [place] [address] 4 11:00 AM EDT Laboratory Laboratory [address] [place] [phone] [place], [address] [place] [address] 4 1:00 PM EDT Office Visit Family Practice [facility] [address] [place] [address] Sarah Galaviz DO [address] [place] [address] 4 2:00 PM EDT Office Visit Hematology/Onco logy Elma Francois [place] 200 [facility] [place] [address] Anthony Ritchie MD [address] [facility] [place] [address] Scheduled Procedures Name Priority Associated Diagnoses Date/Ti [...] 10/15/2019 LUNG CANCER SCREENING - USE SMARTSET [address] Completed 07/09/2019 Zoster Vaccines Completed 07/10/2020, 04/14/2020 [...] filedocumented as of this encounter Care Teams Director Meetings Relationship Specialty Start Date End Date Sarah Galaviz DO [address] [place] [address] PCP - General Family Medicine 06/30/19 documented as of this encounter
--- OUTSIDE RECORDS SUMMARY | 2023-12-10 20:24 | External Medical Summary ---
Author Name Unknown Address Unknown Organization K01:[facility] - [address] [place] [address] Laboratory Report Ordering Provider Test Date Status ALEA MEJIAS 12/02/2023 11:24:14 Final Observation Date Value Abnormality Reference (Units ) Status SYNC LEUKOCYTES IN BLOOD BY AUTOMATED COUNT 12/02/2023 11:24:14 4.95 4.00-10.80 (K/uL) Final Segs 12/02/2023 11:24:14 45.5 40.0-75.0 (%) Final Lymphs % 12/02/2023 11:24:14 40.2 18.0-42.0 (%) Final Monos 12/02/2023 11:24:14 10.1 1.0-11.0 (%) Final Eosinophils 12/02/2023 11:24:14 2.8 0.0-6.0 (%) Final Basos 12/02/2023 11:24:14 0.8 0.0-2.0 (%) Final Immature Granulocyte, Percent 12/02/2023 11:24:14 0.6 0.0-2.0 (%) Final Absolute Segs 12/02/2023 11:24:14 2.25 1.80-7.70 (K/uL) Final Lymphs, absolute 12/02/2023 11:24:14 1.99 1.00-4.80 (K/ul) Final Monos, Abs 12/02/2023 11:24:14 0.50 0.00-1.10 (K/uL) Final Eos, Abs 12/02/2023 11:24:14 0.14 0.00-0.70 (K/uL) Final Basos, Abs 12/02/2023 11:24:14 0.04 0.00-0.20 (K/uL) Final Immature Granulocytes, Number 12/02/2023 11:24:14 0.03 0.00-0.20 (K/uL) Final Performing Location [facility] - [address] [facility] [address]
--- OUTSIDE RECORDS SUMMARY | 2023-12-10 20:24 | External Medical Summary | Summary of Care ---
Author Name Unknown Organization [facility] Address [address] [facility] [place] [address] Phone [phone] Care Team Providers Care Tie Knitter Helper Name Role Phone Sarah Galaviz DO Primary Care Provider [phone] Reason for Visit * Reason Onset Date Comments Precert Future 12/03/2023 Monoferric Encounter Details Date Type Department Care Team (Late st Contact Info) Description 12/03/2023 Telephone Hematology/Oncology [facility] [address] [facility] [address] [place] [address] Tammy Hammond CRNP [address] [place] [address] Precert Future (Monoferric) Allergies [...] Care Team (Latest Contact Info) Description 4 8:00 AM EDT Hospital Encounter ENDO [facility], Endoscopy Room [facility] [address] [place] [phone] Favian Escalante MD [address] [place] [address] 4 8:00 AM EDT - 4 9:00 AM EDT Surgery ENDO [facility], Endoscopy Room [facility] [address] [place] [phone] Favian Escalante MD [address] [place] [address] ESOPHAGOGASTRODUODENOSCOPY (EGD), FLEXIBLE, TRANSORAL, ENDOSCOPIC ULTRASOUND 4 7:15 AM EDT Cardiac Studies Cardiac Studies, [facility] [address] [facility] [place] [address] 4 8:30 AM EDT PulmDiagnostic Pulmonary Function Lab, [facility] [address] [facility] [place] [address] West, Pft [address] [facility] [place] [address] 4 1:30 PM EDT PulmDiagnostic Sleep Lab [facility] [address] [facility] [place] [address] [facility] Sleep Med Home Study [facility] [place] [address] 4 11:40 AM EDT Office Visit Hepatology, [facility] [address] [place] [address] Evangelina Dorado, DO [address] [place] [address] 4 11:00 AM EDT Laboratory Laboratory [address] [place] [phone] [address] [place] [address] 4 1:00 PM EDT Office Visit Family Practice [facility] [address] [place] [address] Sarah Galaviz, DO [address] [place] [address] 4 2:00 PM EDT Office Visit [facility] [address] [place] [address] Anthony Ritchie MD [address] [place] [address] Scheduled Procedures Name Priority Associated Diagnoses Date/Ti [...] 10/15/2019 LUNG CANCER SCREENING - USE SMARTSET [id number] Completed 07/09/2019 Zoster Vaccines Completed 07/10/2020, 04/14/2020 [...] filedocumented as of this encounter Care Teams Tie Knitter Helper Relationship Specialty Start Date End Date Sarah Galaviz DO [address] [place] [address] PCP - General Family Medicine 06/30/19 documented as of this encounter
--- OUTSIDE RECORDS SUMMARY | 2023-12-10 20:24 | External Medical Summary | Summary of Care ---
Author Name Unknown Organization [facility] Address [address] [facility] [place] [address] Phone [phone] Care Team Providers Care Oxygen Therapist Name Role Phone Sarah Galaviz DO Primary Care Provider [phone] Encounter Details Date Type Department Care Team (Late st Contact Info) Description 12/03/2023 Telephone Hematology/Oncology [facility] [address] [place] [address] Tammy Hammond CRNP [address] [facility] [place] [address] Allergies No known active allergiesdocumented as [...] Escalante MD [address] [place] [address] 4 8:00 AM EDT - 4 9:00 AM EDT Surgery ENDO [facility], Endoscopy Room [facility] [address] [place] [phone] Favian Escalante MD [address] [place] [address] ESOPHAGOGASTRODUODENOSCOPY (EGD), FLEXIBLE, TRANSORAL, ENDOSCOPIC ULTRASOUND 4 7:15 AM EDT Cardiac Studies Cardiac Studies, [facility] [address] [place] [address] 4 8:30 AM EDT PulmDiagnostic Pulmonary Function Lab, [facility] [address] [place] [address] West, Pft [address] [place] [address] 4 1:30 PM EDT PulmDiagnostic Sleep Lab [facility] [address] [place] [address] [facility], Sleep Med Home Study [facility] [address] [place] [address] 4 11:40 AM EDT Office Visit Hepatology, [facility] [address] [place] [address] Evangelina Dorado DO [address] [place] [address] 4 11:00 AM EDT Laboratory Laboratory [address] [place] [phone] [place], [address] [place] [address] 4 1:00 PM EDT Office Visit Family Practice [facility] [address] [place] [address] Sarah Galaviz DO [address] [place] [address] 4 2:00 PM EDT Office Visit Hematology/Onco logy Elma Francois [place] 200 [facility] [place] [address] Anthony Ritchie MD 200 [facility] [place] [address] Scheduled Procedures Name Priority Associated Diagnoses Date/Ti [...] 10/15/2019 LUNG CANCER SCREENING - USE SMARTSET [id number] Completed 07/09/2019 Zoster Vaccines Completed 07/10/2020, 04/14/2020 [...] filedocumented as of this encounter Care Teams Oxygen Therapist Relationship Specialty Start Date End Date Sarah Galaviz DO [address] [place] [address] PCP - General Family Medicine 06/30/19 documented as of this encounter
--- OUTSIDE RECORDS SUMMARY | 2023-12-10 20:24 | External Medical Summary | Summary of Care ---
Author Name Unknown Organization [facility] Address [address] [facility] [place] [address] Phone [phone] Care Team Providers Care Rig Welder Name Role Phone Sarah Galaviz DO Primary Care Provider [phone] Reason for Visit * Reason Onset Date Comments Precert Future 12/03/2023 Monoferric Encounter Details Date Type Department Care Team (Late st Contact Info) Description 12/03/2023 Telephone Hematology/Oncology [facility] [address] [facility] [address] [place] [address] Tammy Hammond CRNP [address] [place] [address] Precert Future (Monoferric) Allergies [...] encounter Miscellaneous Notes * Telephone Encounter - Chevy Shane, GOLD - 12/03/2023 3:21 PM EDT Orders received, beacon plan built and routed. Will await auth. documented in this encounter Plan of Treatment Upcoming Encounters Date Type Department Care Team (Latest Contact Info) Description 4 8:00 AM EDT Hospital Encounter ENDO [facility], Endoscopy Room [facility] 132 [facility], [place] [address] Favian Escalante MD [address] [place] [address] 4 8:00 AM EDT - 4 9:00 AM EDT Surgery ENDO [facility], Endoscopy Room [facility] [address] [place] [address] Favian Escalante MD [address] [place] [address] ESOPHAGOGASTRODUODENOSCOPY (EGD), FLEXIBLE, TRANSORAL, ENDOSCOPIC ULTRASOUND 4 7:15 AM EDT Cardiac Studies Cardiac Studies, [facility] [address] [place] [address] 4 8:30 AM EDT PulmDiagnostic Pulmonary Function Lab, [facility] [address] [place] [address] West, Pft [address] [place], [place] [address] 4 1:30 PM EDT PulmDiagnostic Sleep Lab [facility] [address] [place] [address] [facility] Sleep Med Home Study [facility] [address] [place] [address] 4 11:40 AM EDT Office Visit Hepatology, [facility] [address] [place] [address] Evangelina Dorado DO [address] [place] [address] 4 11:00 AM EDT Laboratory Laboratory [address] [place] [phone] [address] [place] [address] 4 1:00 PM EDT Office Visit Family Practice [facility] [address] [place] [address] Sarah Galaviz DO [address] [place] [address] 4 2:00 PM EDT Office Visit Hematology/Onco logy Elma Francois [place] [address] [place] [address] Anthony Ritchie MD [address] [place] [address] Scheduled Procedures Name Priority Associated Diagnoses Date/Ti [...] 3-dose series) 2022 COVID-19 Vaccine (1 - 2022- season) 2023 Depression Screening 08/13/2024 08/13/2023 Lipid Panel 10/19/2024 10/19/2019, 06/17, 11/10/2010, Additional history exists Diabetes Screening 10/23/2026 10/23/2023, 1 10/22/2022, 08/13/2023, Additional history exists DTaP,Tdap,and Td Vaccines (2 - Td or Tdap) 10/15/2029 10/15/2019 LUNG CANCER SCREENING - USE SMARTSET [id number] Completed 07/09/2019 Zoster Vaccines Completed 07/10/2020, 04/14/2020 [...] filedocumented as of this encounter Care Teams Rig Welder Relationship Specialty Start Date End Date Sarah Galaviz DO [address] [place] [address] PCP - General Family Medicine 06/30/19 documented as of this encounter
--- OUTSIDE RECORDS SUMMARY | 2023-12-10 20:24 | External Medical Summary | Summary of Care ---
Author Name Unknown Organization [facility] Address [address] [facility] [facility] [address] Phone [phone] Care Team Providers Care Service Assistant Name Role Phone Sarah Galaviz DO Primary Care Provider [phone] Encounter Details Date Type Department Care Team (Late st Contact Info) Description 12/03/2023 Orders Only Hematology/Oncology [facility] [place] [address] [facility] [address] Tammy Hammond CRNP 400 [facility] [place] [address] Allergies No known active allergiesdocumented as [...] on file documented as of this encounter Plan of Treatment Upcoming Encounters Date Type Department Care Team (Latest Contact Info) Description 4 8:00 AM EDT Hospital Encounter ENDO [facility], Endoscopy Room [facility] [address] [place] [phone] Favian Escalante MD [address] [place] [address] 4 8:00 AM EDT - 4 9:00 AM EDT Surgery ENDO [facility], Endoscopy Room [facility] [address] [place] [phone] Favian Escalante MD [address] [place] [address] ESOPHAGOGASTRODUODENOSCOPY (EGD), FLEXIBLE, TRANSORAL, ENDOSCOPIC ULTRASOUND 4 7:15 AM EDT Cardiac Studies Cardiac Studies, [facility] [address] [place] [address] 4 8:30 AM EDT PulmDiagnostic Pulmonary Function Lab, [facility] [address] [place] [address] [place], [address] [place] [address] 4 1:30 PM EDT PulmDiagnostic Sleep Lab [facility] [address] [place] [address] [facility], Sleep Med Home Study [facility] [address] [place] [address] 4 11:40 AM EDT Office Visit Hepatology, [facility] [address] [place] [address] Evangelina Dorado, DO [address] [place] [address] 4 11:00 AM EDT Laboratory Laboratory [address] [place] [phone] [place], Lab [address] [place] [address] 4 1:00 PM EDT Office Visit Family Practice [facility] [address] [place] [address] Sarah Galaviz, DO [address] [place] [address] 4 2:00 PM EDT Office Visit Hematology/Onco logy [facility] [place] 200 [facility] [address] Anthony Ritchie MD [address] [facility] [address] Scheduled Procedures Name Priority Associated Diagnoses Date/Ti [...] 10/15/2019 LUNG CANCER SCREENING - USE SMARTSET 15677 Completed 07/09/2019 Zoster Vaccines Completed 07/10/2020, 04/14/2020 [...] filedocumented as of this encounter Care Teams Service Assistant Relationship Specialty Start Date End Date Sarah Galaviz DO [address] [place] [address] PCP - General Family Medicine 06/30/19 documented as of this encounter
--- OUTSIDE RECORDS SUMMARY | 2023-12-10 20:24 | External Medical Summary | Summary of Care ---
Author Name Unknown Organization [facility] Address [address] [facility] [place] [address] Phone [phone] Care Team Providers Care Animal Trainer Name Role Phone Sarah Galaviz DO Primary Care Provider [phone] Reason for Visit * Reason Comments Outpatient Testing Encounter Details Date Type Department Care Team (Late st Contact Info) Description 12/02/2023 11:30 AM EDT Laboratory Laboratory [address] [place] [phone] [facility] [address] [place] [address] Pancytopenia (HCC); Iron deficiency anemia, unspecified iron deficiency anemia type Allergies No known active allergiesdocumented as of this encounter (statuses as of 12/02/2023) Medications Medication Sig Dispensed Refills Start Date [...] as of this encounter (statuses as of 12/02/2023) Active Problems Problem Noted Date Diagnosed Date Nocturnal hypoxemia 10/31/2023 Sleep-disordered breathing 10/31/2023 Celiac disease 10/30/2023 Unspecified cirrhosis of liver 04/14/2020 Thrombocytopenia 10/15/2019 GENI positive 07/07/2019 PHT (pulmonary hypertension) 07/06/2019 Overview: Suspected on Echocardiogram when Hgb low. 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 Secondhand smoke exposure 07/06/2019 Environmental exposure 07/06/2019 Overview: Chickens, Ducks Pancytopenia documented as of this encounter (statuses as of 12/02/2023) Immunizations Name Administration Dates Next Due Pneumococcal [...] [facility], Endoscopy Room [facility] [address] [place] [phone] Favian Escalante MD [address] [place] [address] 4 8:00 AM EDT - 4 9:00 AM EDT Surgery ENDO [facility], Endoscopy Room [facility] [address] [place] [address] Favian Escalante MD [address] [place] [address] ESOPHAGOGASTRODUODENOSCOPY (EGD), FLEXIBLE, TRANSORAL, ENDOSCOPIC ULTRASOUND 4 7:15 AM EDT Cardiac Studies Cardiac Studies, [facility] [address] [place] [address] 4 8:30 AM EDT PulmDiagnostic Pulmonary Function Lab, [facility] [address] [place] [address] [place], [address] [place] [address] 4 1:30 PM EDT PulmDiagnostic Sleep Lab [facility] [address] [place] [address] [facility] Sleep Med Home Study [place] [address] [address] [place] [address] 4 11:40 AM EDT Office Visit Hepatology, [facility] [address] [place] [address] Evangelina Dorado, DO [address] [place] [address] 4 11:00 AM EDT Laboratory Laboratory [address] [place] [phone] [place], Lab [address] [place] [address] 4 1:00 PM EDT Office Visit Family Practice [facility] [address] [place] [address] Sarah Galaviz, DO [address] [place] [address] 2:00 PM EDT Office Visit Hematology/Onco log[facility] [employer] [address] [place] [phone] Anthony Ritchie MD [address] [place] [address] Pending Results Name Type Priority Associated Diagnoses Date /Time CBC WITH WBC DIFFERENTIAL Lab STAT Pancytopenia (HCC) Iron deficiency anemia, unspecified iron deficiency anemia type 12/02/2023 11:24 AM EDT IRON SCREEN, INCLUDING TIBC Lab STAT Pancytopenia (HCC) Iron deficiency anemia, unspecified iron deficiency anemia type 12/02/2023 11:24 AM EDT FERRITIN Lab STAT Pancytopenia (HCC) Iron deficiency anemia, unspecified iron deficiency anemia type 12/02/2023 11:24 AM EDT CBC Lab STAT Pancytopenia (HCC) Iron deficiency anemia, unspecified iron deficiency anemia type 12/02/2023 11:24 AM EDT DIFFERENTIAL, AUTOMATED Lab STAT Pancytopenia (HCC) Iron deficiency anemia, unspecified iron deficiency anemia type 12/02/2023 11:24 AM EDT Scheduled Procedures Name Priority Associated Diagnoses Date/Ti [...] 3-dose series) 2022 COVID-19 Vaccine (1 - 2022-24 season) 2023 Depression Screening 08/13/2024 08/13/2023 Lipid Panel 10/19/2024 10/19/2019, 1009/2017, 11/10/2010, Additional history exists Diabetes Screening 10/23/2026 10/23/2023, 1 10/22/2022, 08/13/2023, Additional history exists DTaP,Tdap,and Td Vaccines (2 - Td or Tdap) 10/15/2029 10/15/2019 LUNG CANCER SCREENING - USE SMARTSET [id number] Completed 07/09/2019 Zoster Vaccines Completed 07/10/2020, 04/14/2020 [...] as of this encounter Visit Diagnoses Diagnosis Pancytopenia (HCC) Other pancytopenia Iron deficiency anemia, unspecified iron deficiency anemia type Hepatic cirrhosis, unspecified hepatic cirrhosis type, unspecified whether ascites present (HCC) Anemia, unspecified type documented in this encounter Care Teams Animal Trainer Relationship Specialty Start Date End Date Sarah Galaviz DO [address] [place] [address] PCP - General Family Medicine 06/30/19 documented as of this encounter
--- OUTSIDE RECORDS SUMMARY | 2023-12-10 20:24 | External Medical Summary | Summary of Care ---
Author Name Unknown Organization [facility] Address [address] [facility] [place] [address] Phone [phone] Care Team Providers Care Workers' Compensation Magistrate Name Role Phone Sarah Galaviz DO Primary Care Provider [phone] Reason for Visit * Reason Comments Cough Encounter Details Date Type Department Care Team ([facility] Contact Info) Description 11/20/2023 12:00 PM EST Telemedicine Family [address] [phone] Molly Rondon PA-C [address] [place] [address] Acute cough*; Acute non-recurrent maxillary sinusitis Allergies No known active allergiesdocumented as of this encounter (statuses as of 11/20/2023) Medications Medication Sig Dispensed Refills Start Date [...] the morning. 30 Tablet 11 12/09/2022 Active Furosemide 20 MG Oral Tablet (Lasix) Take 1 TABLET BY MOUTH in the morning. 30 Tablet 5 06/20/2023 Active Albuterol Sulfate HFA 108 (90 Base) [...] five 6 Tablet 0 11/20/2023 4 Active predniSONE 20 MG Oral Tablet (Deltasone)Indicat ions:Acute bronchitis, antibiotics not indicated Take 2 Tablets by mouth in the morning for 5 days. 10 Tablet 0 08/13/2023 4 Discontinue d(Medicatio n List Clean Up) Hospital, Clinic, or Other Facility Administered Medication [...] as of this encounter (statuses as of 11/20/2023) Active Problems Problem Noted Date Diagnosed Date Nocturnal hypoxemia 10/31/2023 Sleep-disordered breathing 10/31/2023 Celiac disease 10/30/2023 Unspecified cirrhosis of liver 04/14/2020 Thrombocytopenia 10/15/2019 GENI positive 07/07/2019 PHT (pulmonary hypertension) 07/06/2019 Overview: Suspected on Echocardiogram when Hgb low. 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 I was in a hospital or clinic location. After connecting through [employer],patient was verified with two unique identifiers. Patient (or authorized legal sales representative cash registers) was then informed that this was a Telemedicine visit and being conducted confidentially over secure lines. Methods to assure confidentiality were taken. Patient acknowledged consent and understanding of pr ivacy and security of the Telemedicine visit. The patient agreed to participate. Subjective: Marianne Chand is a 62 year old female. No chief complaint on file. HPI: Patient presents via telemedicine for cough for about 1 month. This started with URI symptoms. She reports she continues to have some nasal mucus. She also reports sinus congestion. She reports back pain from coughing. Denies urinary symptoms Denies fevers. Denies any shortness of breath. Denies any chest pain Sick contacts: son with similar symptoms She denies history of asthma or COPD PMH: Patient Active Problem List Diagnosis Code Pancytopenia (HCC) D61.818 PHT (pulmonary hypertension) (HCC) I27.20 Tobacco abuse, in remission F17.201 Secondhand smoke exposure Z77.22 Environmental exposure T75.89XA GENI positive R76.8 Thrombocytopenia (HCC) D69.6 Unspecified cirrhosis of liver (HCC) K74.60 Celiac disease K90.0 Nocturnal hypoxemia G47.34 Sleep-disordered breathing G47.30 Current Outpatient Medications Medication Sig Dispense Refill Acetaminophen ER (TYLENOL 8 HOUR ARTHRITIS PAIN) 650 MG TBCR Take 1 Tablet by mouth every 8 hours as needed for Fever. Fluticasone Propionate 50 MCG/ACT Nasal Suspension Administer 2 Sprays into each nostril daily. 16 g 3 GENERIC EXTERNAL MEDICATION Balance of nature- fruit & vegetable vitamin Ambrisentan 10 MG Oral Tablet (Letairis) Take 1 Tablet by mouth daily. 30 Tablet 11 Potassium Chloride Sheron ER 20 MEQ Oral Tablet Extended Release Take 1 Tablet by mouth in the morning. 30 Tablet 11 Furosemide 20 MG Oral Tablet (Lasix) Take 1 TABLET BY MOUTH in the morning. 30 Tablet 5 Albuterol Sulfate HFA 108 (90 Base) MCG/ACT Inhalation Aerosol Solution Inhale 2 Puffs by mouth every 6 hours as needed (chest tightness, sob). 18 g 1 Sildenafil Citrate 20 MG Oral Tablet (Revatio) Take 1 tablet in the morning, 1 tablet at noon, and 1 tablet before bedtime. Generic for Revatio. 90 Tablet 11 Iron-Vitamin C 65-125 MG Oral Tablet (Vitron C) Take 1 Tablet by mouth in the morning. 90 Tablet 1 Current Facility-Administered Medications Medication Dose Route Frequency Provider Last Rate Last Admin albuterol sulfate (PROVENTIL) (2.5 MG/3ML) 0.083% inhalation solution 2.5 mg 2.5 mg Nebulizer Q4H PRN Ray Rose DO 2.5 mg at 07/09/19 1459 Albuterol Sulfate (Proventil) (2.5 MG/3ML) 0.083% inhalation solution 2.5 mg 2.5 mg Nebulizer Once PRN Ray Rose DO Review of patient's allergies indicates: No Known Allergies Objective: There were no vitals taken for this visit. General: alert, does not appear in distress Lungs: No conversational dyspnea. No evidence of labored breathing Skin: no obvious lesions or rashes on face Neuro Exam: alert & oriented x 3 with fluent speech ASSESSMENT: Acute cough (Primary) - Benzonatate 100 MG Oral Capsule; Take 1 Capsule by mouth 3 times a day as needed for Cough. - XR CHEST 2 VIEWS Acute non-recurrent maxillary sinusitis - Azithromycin 250 MG Oral Tablet (Zithromax); Take 2 tabs by mouth on the first day, then 1 tab daily on days two through five Plan: Will treat for sinusitis. Will also obtain chest x-ray given prolonged cough. Benzonatate PRN. Advised patient to follow up with her PCP. Seek reevaluation if symptoms fail to improve or become worse. Molly Rondon PA-C documented in this encounter Plan of Treatment Upcoming Encounters Date Type Department Care Team (Latest Contact Info) Description 4 11:00 AM EDT Laboratory Laboratory [address] [place] [phone] [place] [address] 4 8:00 AM EDT Hospital Encounter ENDO [facility], Endoscopy Room OSS 132 [facility] [place] [address] Favian Escalante MD [address] [place] [address] 4 8:00 AM EDT - 4 9:00 AM EDT Surgery ENDO [facility], Endoscopy Room [facility] [address] [place] [phone] Favian Escalante MD [address] [place] [address] ESOPHAGOGASTRODUODENOSCOPY (EGD), FLEXIBLE, TRANSORAL, ENDOSCOPIC ULTRASOUND 4 7:15 AM EDT Cardiac Studies Cardiac Studies, [facility] [address] [place] [address] 4 8:30 AM EDT PulmDiagnostic Pulmonary Function Lab, [facility] [address] [place] [address] West, [address] [place] [address] 4 11:40 AM EDT Office Visit Hepatology, [facility] [address] [place] [address] Evangelina Dorado, DO [address] [place] [address] 4 11:00 AM EDT Laboratory Laboratory [address] [place] [phone] [place], Lab [address] [place] [address] 4 1:00 PM EDT Office Visit Family Practice [facility] [address] [place] [address] Sarah Galaviz, DO [address] [place] [address] 4 2:00 PM EDT Office Visit Hematology/[place]co [facility] [employer] [address] [place] [phone] Anthony Ritchie MD [address] [place] [address] Scheduled Orders Name Type Priority Associated Diagnoses Orde r Schedule XR CHEST 2 VIEWS Medical Imaging Routine Acute cough Ordered: 11/20/2023 Scheduled Procedures Name Priority Associated Diagnoses Date/Ti [...] 10/15/2019 LUNG CANCER SCREENING - USE SMARTSET [address] Completed 07/09/2019 Zoster Vaccines Completed 07/10/2020, 04/14/2020 [...] as of this encounter Visit Diagnoses Diagnosis Acute cough- Primary Acute non-recurrent maxillary sinusitis Hepatic cirrhosis, unspecified hepatic cirrhosis type, unspecified whether ascites present (HCC) Anemia, unspecified type documented in this encounter Care Teams Workers' Compensation Magistrate Relationship Specialty Start Date End Date Sarah Galaviz DO [address] [place] [address] PCP - General Family Medicine 06/30/19 documented as of this encounter
--- OUTSIDE RECORDS SUMMARY | 2023-12-10 20:24 | External Medical Summary | Summary of Care ---
Author Name Unknown Organization [facility] Address [address] [facility] [place] [address] Phone [phone] Care Team Providers Care Business Employment Specialist Name Role Phone Sarah Galaviz DO Primary Care Provider [phone] Reason for Visit * Reason Onset Date Comments Scheduling 11/18/2023 WATCHPAT Encounter Details Date Type Department Care Team (Late st Contact Info) Description 11/18/2023 Telephone Sleep Lab [facility] [address] [place] [address] [facility] Sleep Med Home Study [facility] 132 [facility] [place] [address] Scheduling (WATCHPAT) Allergies No known active allergiesdocumented as of [...] the morning. 90 Tablet 1 11/06/2023 Active predniSONE 20 MG Oral Tablet (Deltasone)Indicat [...] encounter Miscellaneous Notes * Telephone Encounter - Trisha Narayan OSA - 11/20/2023 2:45 PM EST Pt is scheduled for January 21 * Telephone Encounter - Ana Davidson OSA - 11/18/2023 11:24 AM EST WATCHPAT Ordered by Mumtaz Armenta MD documented in this encounter Plan of Treatment Upcoming Encounters Date Type Department Care Team (Latest Contact Info) Description 4 11:00 AM EST Imaging Radiology [address] [place] [address] 4 11:00 AM EDT Laboratory Laboratory [address] [place] [phone] [place], Lab [address] [place] [address] 4 8:00 AM EDT Hospital Encounter ENDO [facility], Endoscopy Room [facility] [address] [place] [phone] Favian Escalante MD [address] [place] [address] 4 8:00 AM EDT - 4 9:00 AM EDT Surgery ENDO [facility], Endoscopy Room [facility] [address] [place] [phone] Favian Escalante MD [address] [place] [address] ESOPHAGOGASTRODUODENOSCOPY (EGD), FLEXIBLE, TRANSORAL, ENDOSCOPIC ULTRASOUND 4 7:15 AM EDT Cardiac Studies [facility] [address] [place] [address] 4 8:30 AM EDT PulmDiagnostic Pulmonary Function Lab, [facility] [place] [address] [place] [address] West, [address] [place] [address] 4 1:30 PM EDT PulmDiagnostic Sleep Lab [facility] [address] [place] [address] [facility] Home Study [facility] [address] [place] [address] 4 11:40 AM EDT Office Visit Hepatology, [facility] [address] [place] [address] Evangelina Dorado, DO [address] [place] [address] 4 11:00 AM EDT Laboratory Laboratory [address] [place] [phone] [place], [address] [place] [address] 4 1:00 PM EDT Office Visit Family Practice [facility] [address] [place] [address] Sarah Galaviz, DO [address] [place] [address] 4 2:00 PM EDT Office Visit Hematology/[place] [address] [place] [phone] Anthony Ritchie MD [address] [place] [address] Scheduled Procedures Name Priority Associated Diagnoses Date/Ti [...] 10/15/2019 LUNG CANCER SCREENING - USE SMARTSET [address] Completed 07/09/2019 Zoster Vaccines Completed 07/10/2020, 04/14/2020 [...] filedocumented as of this encounter Care Teams Business Employment Specialist Relationship Specialty Start Date End Date Sarah Galaviz DO [address] [address] PCP - General Family Medicine 06/30/19 documented as of this encounter
--- OUTSIDE RECORDS SUMMARY | 2023-12-10 20:24 | External Medical Summary | Summary of Care ---
Author Name Unknown Organization [facility] Address [address] [facility] [place] [address] Phone [phone] Care Team Providers Care Mobile Equipment Operator Name Role Phone Sarah Galaviz DO Primary Care Provider [phone] Reason for Visit * Reason Comments Acute Encounter Details Date Type Department Care Team (Late st Contact Info) Description 12/02/2023 11:20 AM EDT Office Visit Family Medicine [address] [address] Maxine Kingsley PA-C [address] [place] [address] [place] [address] Acute bilateral low back pain without sciatica* Allergies No known active allergiesdocumented as of [...] Sign Reading Time Taken Comments Blood Pressure 102/64 12/02/2023 11:06 AM EDT Pulse 70 12/02/2023 11:06 AM EDT Temperature 35.8 C (96.4 F) 12/02/2023 11:06 AM E DT Respiratory Rate - - Oxygen Saturation 99% 12/02/2023 11:06 AM EDT Inhaled Oxygen Concentration - - Weight 81.4 kg (179 lb 8 oz) 12/02/2023 11:06 AM EDT Height - - Body Mass Index 29.19 11/14/2023 8:45 AM EST documented in this encounter Progress Notes * Maxine Kingsley PA-C - 12/02/2023 11:11 AM EDT Nursing Notes: Margarita FuentesMARY 12/02/23 1110 Signed She is here for back pain and lightheadedness. She has had it for a couple weeks. She had a video visit about a week ago for a cough and was treated with antibiotics. Pt here today with lower back pain for the past couple weeks. Pt states that she did have a cough and doesn't know if she may have pulled something. Pt also fell out of a chair a couple of weeks ago.Pt denies pain into buttocks or legs. Pain has more pain with ROM at waist and with movements. Pt has been taking some OTC meds with little relief. Pt also with some lightheadedness. She is due for labs today. She will have these done today. Pt denies syncope, dizziness, fever, chills, URI sx, allergy/sinus sx, chest pain, SOB. The lightheadedness is worse with positional changes. Pt is eating and drinking ok but they did change her diet. She is trying to avoid gluten. BP a little lower than normal today. Review of patient's allergies indicates: No Known Allergies Current Outpatient Medications Medication Sig Dispense Refill [...] mouth in the morning. 30 Tablet 11 Sildenafil Citrate 20 MG Oral Tablet (Revatio) Take 1 tablet in the morning, 1 tablet at noon, and 1 tablet before bedtime. Generic for Revatio. 90 Tablet 11 Iron-Vitamin C 65-125 MG Oral Tablet (Vitron C) Take 1 Tablet by mouth in the morning. 90 Tablet 1 Furosemide 20 MG Oral Tablet (Lasix) Take 1 TABLET BY MOUTH in the morning. 90 Tablet 3 Albuterol Sulfate HFA 108 (90 Base) MCG/ACT Inhalation Aerosol Solution Inhale 2 Puffs by mouth every 6 hours as needed (chest tightness, sob). (Patient not taking: Reported on 12/02/2023) 18 g 1 Benzonatate 100 MG Oral Capsule Take 1 Capsule by mouth 3 times a day as needed for Cough. (Patientnot taking: Reported on 12/02/2023) 10 Capsule 0 Current Facility-Administered Medications Medication Dose Route Frequency Provider Last Rate Last Admin albuterol sulfate (PROVENTIL) (2.5 MG/3ML) 0.083% inhalation solution 2.5 mg 2.5 mg Nebulizer Q4H PRN Ray Rose DO 2.5 mg at 07/09/19 1459 Albuterol Sulfate (Proventil) (2.5 MG/3ML) 0.083% inhalation solution 2.5 mg 2.5 mg Nebulizer Once PRN Ray Rose DO Past Medical History: Diagnosis Date Allergic rhinitis Anxiety state ? anxiety attack. Celiac disease Followed by [facility] Environmental exposure 07/06/2019 Chickens, Ducks Pancytopenia (HCC) PHT (pulmonary hypertension) (HCC) 07/06/2019 Suspected on Echocardiogram when Hgb low. 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 Social History Socioeconomic History Marital status: Spouse name: Not on file Number of children: Not on file Years of education: Not on file Highest education level: Not on file Occupational History Not on file Tobacco Use Smoking status: Former Current packs/day: 0.00 Average packs/day: 1 pack/day for 38.7 years (38.7 ttl pk-yrs) Types: Cigarettes Start date: 1980 Quit date: 05/27/2019 Years since quittin.5 Smokeless tobacco: Never Tobacco comments: stopped smoking while having kids Vaping Use Vaping Use: Never used Substance and Sexual Activity Alcohol use: No Drug use: Never Sexual activity: Yes Partners: Male Other Topics Concern Not on file Social History Narrative Not on file Social Determinants of Health Financial Resource Strain: Not on file Food Insecurity: No Food Insecurity (05/27/2019) Hunger Vital Sign Worried About Running Out of Food in the Last Year: Never true Ran Out of Food in the Last Year: Never true Transportation Needs: Not on file Physical Activity: Not on file Stress: Not on file Social Connections: Not on file Intimate Partner Violence: Not on file Housing Stability: Not on file O:Blood pressure 102/64, pulse 70, temperature 35.8 C (96.4 F), weight 81.4 kg (179 lb 8 oz), SpO2 99%, not currently . GENERAL: alert, healthy, and no distress. jaundice HEART: regular rate & rhythm, no murmur, and no gallops LUNGS: chest symmetric with normal AP diameter, no chest deformities noted, no chest wall tenderness, lungs clear to auscultation HEAD: Normocephalic, No masses, lesions, tenderness or abnormalities EYES: PERRLA, conjunctiva are pink and non-injected, scleral icterus NOSE: no mucosal erythema, no mucosal edema, no purulent discharge OROPHARYNX: no exudate, no erythema, lips, buccal mucosa, and tongue normal, and mucous membranes are moist BACK: no edema, no erythema, no ecchymosis. No pain with palpation across lower back. Pain with bilateral straight leg raise. A:Acute bilateral low back pain without sciatica (Primary) - XR L SPINE COMPLETE Will xray lumbar spine. Pt is due for labs today. Will check those and make sure hgb didn't drop. Any questions/problems, please call. If anything changes, worsens, develops new sx, please call [facility].If the lightheadedness gets worse, please go to ER [facility]. Follow Up: Return if symptoms worsen or fail to improve. Maxine Kingsley PA-C documented in this encounter Nursing Notes * Margarita Fuentes CMA - 12/02/2023 11:03 AM EDT She is here for back pain and lightheadedness. She has had it for a couple weeks. She had a video visit about a week ago for a cough and was treated with antibiotics. documented in this encounter Plan of Treatment Upcoming Encounters Date Type Department Care Team (Latest Contact Info) Description 4 8:00 AM EDT Hospital Encounter ENDO O[facility], Endoscopy Room [address] [place] [address] Favian Escalante MD [address] [place] [address] 4 8:00 AM EDT - 4 9:00 AM EDT Surgery ENDO [facility], Endoscopy Room [facility] [address] [place] [address] Favian Escalante MD [address] [place] [address] ESOPHAGOGASTRODUODENOSCOPY (EGD), FLEXIBLE, TRANSORAL, ENDOSCOPIC ULTRASOUND 4 7:15 AM EDT Cardiac Studies Cardiac Studies, [facility] [address] [place] [address] 4 8:30 AM EDT PulmDiagnostic Pulmonary Function Lab, [facility] [address] [place] [address] [address], P[address] [place] [address] 4 1:30 PM EDT PulmDiagnostic Sleep Lab [facility] [address] [place] [address] [facility], [facility] Home Study [facility] [address] [place] [address] 4 11:40 AM EDT Office Visit Hepatology, [facility] [address] [place] [address] Evangelina Dorado DO [address] [place] [address] 4 11:00 AM EDT Laboratory Laboratory [place] [address] [place] [phone] [address] [place] [address] 4 1:00 PM EDT Office Visit [facility] [address] [place] [address] Sarah Galaviz DO [address] [place] [address] 4 2:00 PM EDT Office Visit Hematology/Onco logy Elma Francois [place] [address] [place] [address] Anthony Ritchie MD [address] [place] [address] Pending Results Name Type Priority Associated Diagnoses Date /Time XR L SPINE COMPLETE Medical Imaging Routine Acute bilateral low back pain without sciatica 12/02/2023 11:34 AM EDT Scheduled Procedures Name Priority Associated [...] 3-dose series) 2022 COVID-19 Vaccine ( - 2022- season) 2023 Depression Screening 08/13/2024 08/13/2023 Lipid Panel 10/19/2024 10/19/2019, 06/17, 11/10/2010, Additional history exists Diabetes Screening 10/23/2026 10/23/2023, 1 10/22/2022, 08/13/2023, Additional history exists DTaP,Tdap,and Td Vaccines (2 - Td or Tdap) 10/15/2029 10/15/2019 LUNG CANCER SCREENING - USE SMARTSET [id number] Completed 07/09/2019 Zoster Vaccines Completed 07/10/2020, 04/14/2020 [...] of this encounter Visit Diagnoses Diagnosis Acute bilateral low back pain without sciatica- Primary Hepatic cirrhosis, unspecified hepatic cirrhosis type, unspecified whether ascites present (HCC) Anemia, unspecified type documented in this encounter Care Teams Mobile Equipment Operator Relationship Specialty Start Date End Date Sarah Galaviz DO [address] [place] [address] PCP - General Family Medicine 06/30/19 documented as of this encounter
--- OUTSIDE RECORDS SUMMARY | 2023-12-10 20:24 | External Medical Summary | Summary of Care ---
Author Name Unknown Organization [facility] Address [address] [facility] [place] [address] Phone [phone] Care Team Providers Care Concrete Stone Fabricator Name Role Phone Sarah Galaviz DO Primary Care Provider [phone] Encounter Details Date Type Department Care Team (Late st Contact Info) Description 12/03/2023 Telephone Hematology/Oncology [facility] [address] [place] [address] Randell Hammond CRNP [address] [place] [address] Allergies No known active allergiesdocumented as [...] as of this encounter Miscellaneous Notes * Addendum Note - Randell Hammond CRNP - 12/03/2023 2:48 PM EDTAddended by: RANDELL HAMMOND on: 12/03/2023 02:48 PM Modules accepted: Orders * Telephone Encounter - Randell Hammond CRNP - 12/03/2023 2:47 PM EDT SCP placed. * Telephone Encounter - Julianne Georges RN - 12/03/2023 8:34 AM EDT MyG sent. * Telephone Encounter - Randell HammondWINSTON - 12/03/2023 8:26 AM EDT Results for [...] Encounter ENDO [facility], Endoscopy Room [facility] [address] [place] [address] Favian Escalante MD [address] [place] [address] 4 8:00 AM EDT - 4 9:00 AM EDT Surgery ENDO [facility], Endoscopy Room [facility] [address] [place] [phone] Favian Escalante MD [address] [place] [address] ESOPHAGOGASTRODUODENOSCOPY (EGD), FLEXIBLE, TRANSORAL, ENDOSCOPIC ULTRASOUND 4 7:15 AM EDT Cardiac Studies Cardiac Studies, [facility] [address] [place] [address] 4 8:30 AM EDT PulmDiagnostic Pulmonary Function Lab, [facility] [address] [place] [address] [place], [address] [facility] [place] [address] 4 1:30 PM EDT PulmDiagnostic Sleep Lab [facility] [address] [place] [address] [facility], Sleep Med Home Study [facility] [address] [facility] [place] [address] 4 11:40 AM EDT Office Visit Hepatology, [facility] [address] [place] [address] Evangelina Dorado, DO [address] [place] [address] 4 11:00 AM EDT Laboratory Laboratory [address] [place] [address] [place] [address] 4 1:00 PM EDT Office Visit Family Practice [facility] [address] [place] [address] Sarah Galaviz, DO [address] [place] [address] 4 2:00 PM EDT Office Visit Hematology/Onco logy [facility] [address] [place] [phone] Anthony Ritchie MD [address] [place] [address] Scheduled Procedures Name Priority Associated Diagnoses Date/Ti [...] 10/15/2019 LUNG CANCER SCREENING - USE SMARTSET [id number] Completed 07/09/2019 Zoster Vaccines Completed 07/10/2020, 04/14/2020 [...] type documented in this encounter Care Teams Concrete Stone Fabricator Relationship Specialty Start Date End Date Sarah Galaviz DO [address] [place] [address] PCP - General Family Medicine 06/30/19 documented as of this encounter
--- OUTSIDE RECORDS SUMMARY | 2023-12-10 20:24 | External Medical Summary | Summary of Care ---
Author Name Unknown Organization [facility] Address [address] [place] [facility] [place] [address] Phone [phone] Care Team Providers Care Glass Production Machine Operator Name Role Phone Sarah Galaviz DO Primary Care Provider [phone] Encounter Details Date Type Department Care Team (Late st Contact Info) Description 12/03/2023 Telephone Hematology/Oncology [facility] [address] [place] [address] Tammy Hammond CRNP [address] [place] [address] Allergies No known active allergiesdocumented as [...] Escalante MD [address] [place] [address] 4 8:00 AM EDT - 4 9:00 AM EDT Surgery ENDO [facility], Endoscopy Room [facility] [address] [place] [phone] Favian Escalante MD [address] [place] [address] ESOPHAGOGASTRODUODENOSCOPY (EGD), FLEXIBLE, TRANSORAL, ENDOSCOPIC ULTRASOUND 4 7:15 AM EDT Cardiac Studies Cardiac Studies, [facility] [address] [place] [address] 4 8:30 AM EDT PulmDiagnostic Pulmonary Function Lab, [facility] [address] [place] [address] [place], P[address] [place] [address] 4 1:30 PM EDT PulmDiagnostic Sleep Lab [facility] [address] [place] [address] [facility], Sleep Med [facility] [address] [place] [address] 4 11:40 AM EDT Office Visit Hepatology, [facility] [address] [place] [address] Evangelina Dorado DO [address] [place] [address] 4 11:00 AM EDT Laboratory Laboratory [address] [place] [phone] [place], [address] [place] [address] 4 1:00 PM EDT Office Visit Family Practice [facility] [address] [place] [address] Sarah Galaviz DO [address] [place] [address] 4 2:00 PM EDT Office Visit Hematology/Onco logy [place] [address] [facility] [place] [address] Anthony Ritchie MD [address] [facility] [place] [address] Scheduled Procedures Name Priority Associated Diagnoses Date/Ti [...] 10/15/2019 LUNG CANCER SCREENING - USE SMARTSET [id number] Completed 07/09/2019 Zoster Vaccines Completed 07/10/2020, 04/14/2020 [...] filedocumented as of this encounter Care Teams Glass Production Machine Operator Relationship Specialty Start Date End Date Sarah Galaviz DO [address] [place] [address] PCP - General Family Medicine 06/30/19 documented as of this encounter
--- OUTSIDE RECORDS SUMMARY | 2023-12-10 20:24 | External Medical Summary | Summary of Care ---
Author Name Unknown Organization [facility] Address [address] [place] [address] Phone [phone] Care Team Providers Care Clinical Immunologist Name Role Phone Sraah Galaviz DO Primary Care Provider [phone] Reason for Visit * Reason Comments NEW PATIENT Sleep Problems Possible Sleep Apnea * Evaluate & Treat - Unlimited Visits (Within 10 days (routine)) - Pending Review Specialty Diagnoses / Procedures Referred By Mechelle espinosa Referred To Contact Sleep Medicine / Sleep Disorders Diagnoses PHT (pulmonary hypertension) (HCC) Pulmonary hypertension (HCC) Ray Rose DO [address] [place] [address] Referral ID Status Reason Start Date Expiration Date Visits Requested Visits Authorized [id number] Pending Review Specialty Services Required 10/31/2023 2 2 Encounter Details Date Type Department Care Team (Late st Contact Info) Description 11/18/2023 10:30 AM [facility] Tele[facility], [address] [address] Mumtaz Armenta MD [address] [place] [id number] Sleep apnea, unspecified type*; Nocturnal hypoxemia; PHT (pulmonary hypertension) (HCC) Allergies No known active allergiesdocumented as of this encounter (statuses as of 11/18/2023) Medications Medication Sig Dispensed Refills Start Date [...] Sheron ER 20 MEQ Oral Tablet Extended ReleaseIndications:E ssential hypertension with goal blood pressure less than 130/80 Take 1 Tablet by mouth in the morning. 30 Tablet 11 12/09/2022 Active Furosemide 20 MG Oral Tablet (Lasix) Take 1 TABLET BY MOUTH in the morning. 30 Tablet 5 06/20/2023 Active Albuterol Sulfate HFA 108 (90 Base) MCG/ACT Inhalation Aerosol SolutionIndications: Acute bronchitis, antibiotics not indicated Inhale 2 Puffs by mouth every 6 hours as needed (chest tightness, sob). 18 g 1 08/13/2023 Active Sildenafil Citrate 20 MG Oral Tablet (Revatio)Indications :PHT (pulmonary hypertension) (HCC) Take 1 tablet in the morning, 1 tablet at noon, and 1 tablet before bedtime. Generic for Revatio. 90 Tablet 11 09/23/2023 Active Iron-Vitamin C 65-125 MG Oral Tablet (Vitron C)Indications:Iron deficiency anemia, unspecified iron deficiency anemia type Take 1 Tablet by mouth in the morning. 90 Tablet 1 11/06/2023 Active Hospital, Clinic, or Other Facility Administered [...] as of this encounter (statuses as of 11/18/2023) Active Problems Problem Noted Date Diagnosed Date Nocturnal hypoxemia 10/31/2023 Sleep-disordered breathing 10/31/2023 Celiac disease 10/30/2023 Unspecified cirrhosis of liver 04/14/2020 Thrombocytopenia 10/15/2019 GENI positive 07/07/2019 PHT (pulmonary hypertension) 07/06/2019 Overview: Suspected on Echocardiogram when Hgb low. 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 Secondhand smoke exposure 07/06/2019 Environmental exposure 07/06/2019 Overview: Chickens, Ducks Pancytopenia documented as of this encounter (statuses as of 11/18/2023) Immunizations Name Administration Dates Next Due Pneumococcal [...] on file documented as of this encounter Patient Instructions * Patient Instructions* Mumtaz Armenta MD - 11/18/2023 11:25 AM EST Dear Marianne Alcala -- Today, we ordered a type of home sleep apnea test called the WatchPAT, which is worn on the finger and wrist, with an additional online journalist your chest. -- You will be scheduled for the study for a specific day when you can pick it. You will be provided with written instructions to download the [employer] Avtar from the Avtar store. You need to have wifi and a smart phone to do this testing, and there may be instructions regarding being off certain medication. You will need to also tell your provider if you have a pacemaker device so we know how to inte rpret the test. -- After your study, you will receive results through [employer] in 3-7 days. If you are not signed up for [employer], you will receive the results through regular mail (a letter). This process maytake up to an additional 7-10 days. -- If your home sleep study demonstrates simple sleep apnea, you will be started on "automatic CPAP," but if your breathing is more complex (low oxygen, severe respiratory disturbances), we will ask you to come in for a sleep study in our sleep lab to determine the right "dose" of CPAP pressure andassess for optimal resolution of the oxygen disturbances. -- If the WatchPAT home sleep study is inconclusive or not completely reliable, we will recommend that you come to the lab for a more comprehensive sleep study. -- If we order CPAP therapy for you after your work up, your next follow up with us will be about 6-8 weeks after you have used CPAP. If you have trouble with the actual mask or equipment, please contact your equipment company. You may also reach out to us, especially through [employer]. -- Please keep in mind that you do need to be using your machine as much as possible while sleepingto get the maximum benefit, but most insurers want you demonstrate use of at least 4 hours a night > 70% of days. Please let us know if you have additional questions/concerns. Sincerely, Mumtaz Armenta MD Sleep Medicine [facility] documented in this encounter Progress Notes * Mumtaz Armenta MD - 11/18/2023 10:27 AM EST Images from the original note were not included. Name: MARIANNEGERARDO ALCALA [facility] – [place] MR #: [id number] 11/18/2023 Referring provider: Ray Rose DO . Dear Dr. Sarah Galaviz DO Thank you for your kind referral. It was a pleasure to see your patient at [facility] today. Please do not hesitate to contact me if you have any further questions. Sincerely, Mumtaz Armenta MD [facility] NOTE Patient location: HOME. I was in a hospital or clinic location. After connecting through televideo,patient was verified with two unique identifiers. Patient (or authorized legal scheduling representative) was then informed that this was a Telemedicine visit and being conducted confidentially over secure lines. Methods to assure confidentiality were taken. Patient acknowledged consent and understanding of pr ivacy and security of the Telemedicine visit. The patient agreed to participate. Name: MARIANNE ALCALA [facility] – [place], [place] MR #: [id number] 11/18/2023 Chief Complaint: " Nothing has really changed. I didn't know that they would sign me up for the sleep study again." HPI: Marianne Alcala is a 62 year old year old female with history of group 1 PHTN, tobacco used/o, liver cirrhosis, celiac disease and allergic rhinitis who presents for the evaluation and management of sleep-disordered breathing. The patient appears to be largely without significant concernsrelated to her sleep or functioning during the day. She is being managed for pulmonary HTN with some suspicion for an underlying autoimmune disorder, but stated that she has been through more tests but has not been informed about any specific diagnosis. Upon review of her chart, it appears that shewas seen in 2019 for the work up of sleep apnea after home sleep apnea test revealed borderline findings for mild BOGDAN with significant hypoxic burden. She was recommended attended PSG, but had not followed through. Even at present, she is quite reluctant to present for attended PSG attributing thisto commitments to her family and staying busy watching her grandchildren including weekend nights. She does not snore or wake up choking/gasping for air. She does not have significant concerns related to sleep initiation, although might wake up at night multiple times for nocturia; but has generally been able to return to sleep without issues. She does not generally nap in the day. She has not had any recent evaluation for sleep- related hypoxemia, and has not utilized supplemental oxygen at night previously. SLEEP DISORDERS: Insomnia: minimal, related to sleep maintenance Restless Leg Symptoms: Denies ancillary symptoms suggestive of RLS. Parasomnia Symptoms: Denies somniloquy, somnambulism, nightmares, dream enactment or other abnormalbehaviors during sleep. Snoring: No Choking/Gasping: No Witnessed Apneas: No Bruxism: No No personal history of seizures or head trauma. CDL: No Prior motor vehicle accidents due to drowsy driving: No SLEEP SCHEDULE: Bed time: ~ 10 pm Sleep latency: 10-30 minutes Nighttime awakenings: multiple times Rise time: 7 am Total estimated sleep time: 6-7 hours Naps: occasionally Sleep Environment: The patient lives with her daughter and grandson. Pets: a dog that might wake her up. The bedroom is quiet, dark and conducive to sleep. She sometimes sleeps with her television on. Marlow Sleepiness Scale: pending MFOSQ: pending ROS: Dry mouth in the morning: + AM headaches: -- Excessive daytime sleepiness: +/- Acid reflux symptoms: -- Nasal congestion: -- Peripheral edema: managed with diuretic therapy Nocturia: +/- Weight changes: -- All other review of systems were negative except as noted above in HPI. ADDITIONAL PAST MEDICAL HISTORY: Past Medical History: Diagnosis Date Allergic rhinitis Anxiety state ? anxiety attack. Celiac disease Followed by [facility] Environmental exposure 07/06/2019 Chickens, Ducks Pancytopenia (HCC) PHT (pulmonary hypertension) (HCC) 07/06/2019 Suspected on Echocardiogram when Hgb low. 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 ADDITIONAL PAST SURGICAL HISTORY: Past Surgical History: Procedure Laterality Date D&C AFTER DELIVERY after ectopic, left ovary and tube removed EGD, W/ENDOSCOPIC US 10/16/2023 ESOPHAGOGASTRODUODENOSCOPY (EGD), FLEXIBLE, TRANSORAL, ENDOSCOPIC ULTRASOUND performed by Favian Escalante MD at [facility] LIGATE/CUT OVIDUCT(S) RIGHT HEART CATH W/ O2 SAT AND CO Left 03/03/2020 RIGHT HEART CATH W/ O2 SAT AND CO performed by Eyal Tom MD at [facility] – [place] MEDICATIONS: Current Outpatient Medications Medication Sig Dispense Refill [...] mg Nebulizer Once PRN Ray Rose DO ALLERGIES: Review of patient's allergies indicates: No Known Allergies SOCIAL HISTORY: Social History Tobacco Use Smoking status: Former Current packs/day: 0.00 Average packs/day: 1 pack/day for 38.7 years (38.7 ttl pk-yrs) Types: Cigarettes Start date: 1980 Quit date: 05/27/2019 Years since quittin.4 Smokeless tobacco: Never Tobacco comments: stopped smoking while having kids Vaping Use Vaping Use: Never used Substance Use Topics Alcohol use: No Drug use: Never Occupation: Retired Caffeine intake: minimal consumption of caffeinated soda per day FAMILY HISTORY: Family History Problem Relation Age of Onset Heart Disorder Mother bypass Alzheimer's disease Mother Asthma Mother Diabetes Father mild stroke. Hypertension Father Heart Disorder Father bypass Stroke Father Endocrine Disorder Sister thyroid No Known Problems Sister No Known Problems Sister Diabetes Brother Other (Killed in a fire) Brother Other (Healthy) Daughter Other (Healthy) Son Other (Other) Other No h/o cancer, neurological problems Not significant for sleep apnea, parasomnia, RLS and narcolepsy. Physical Exam: There were no vitals taken for this visit. General: appears comfortable and not in acute distress Head: normocephalic Eyes: sclera icteric Maxilla/mandible: ?? retrognathia Neck: prominent loose submental adiposity, no JVD Lungs: normal respiratory effort Neurologic: no ptosis or facial droop Psych: AAO x 3, mood/affect normal DATA REVIEWED: Prior sleep testing: home sleep apnea test from 05/15/20 which showed MELANY ~ 4.7/hr, SpO2 mildred 84%, T < 89% - ~ 46 minutes 2. PAP compliance report, as above 3. TSH Results: Lab Results Component Value Date/Time TSH - [facility] 1.51 08/13/2023 02:45 PM TSH - [facility] 0.86 03/10/2020 10:24 AM TSH - [facility] 1.33 02/18/2020 08:44 AM TSH - [facility] 1.41 07/15/2018 04:40 PM 4. Basic Panel Results: Lab Results Component Value Date/Time CO2 - [facility] 18 (L) 10/23/2023 11:14 AM CO2 - [facility] 19 (L) 08/21/2023 04:51 PM CO2 - [facility] 19 (L) 08/13/2023 02:45 PM CO2 - [facility] 23 07/27/2020 11:24 AM CO2 - [facility] 25 02/25/2020 09:54 AM CO2 - [facility] 23 02/18/2020 08:44 AM 5. TTE: (2020) 6. CBC Results: Lab Results Component Value Date/Time HGB - [facility] 8.9 (L) 11/06/2023 10:08 AM HGB - [facility] 8.6 (L) 10/23/2023 11:14 AM HGB - [facility] 9.1 (L) 08/21/2023 04:51 PM HGB - [facility] 12.2 05/23/2020 02:55 PM HGB - [facility] 14.4 03/10/2020 10:24 AM HGB - [facility] 14.9 02/18/2020 08:44 AM HGB, MEASURED ([facility]) 11.9 03/03/2020 08:46 AM ASSESSMENT AND PLAN: Problem List Items Addressed This Visit Respiratory Nocturnal hypoxemia Relevant Orders HOME SLEEP TEST W/TYPE 4 MONITOR, 3 CHANNEL Circulatory PHT (pulmonary hypertension) (HCC) (Chronic) Relevant Orders HOME SLEEP TEST W/TYPE 4 MONITOR, 3 CHANNEL Other Visit Diagnoses Sleep apnea, unspecified type - Primary Relevant Orders HOME SLEEP TEST W/TYPE 4 MONITOR, 3 CHANNEL 1. Obstructive sleep apnea education. This patient has a reasonable probability for obstructive sleep apnea based on the clinical picture described above (symptoms, body habitus, upper airway exam), and was educated about the definition, pathophysiology and potential complications of untreated obstructive sleep apnea. These potential complications include, but are not limited to a higher risk formotor vehicle accidents, myocardial infarction, stroke and hypertension. Discussed correlation of BOGDAN with pulmonary HTN and explained to her that treatment of BOGDAN is likely to result in improved outcomes in the management of PHTN by addressing sleep-related hypoxia. Therapeutic options (PAP, dental appliances, and weight loss) and benefits of treatment were explained to the patient at length. The patient, although reluctant, agreed to start CPAP therapy if clinically significant obstructive sleep apnea is found. 2. Although attended PSG would be optimal given prior inconclusive HSAT and the patient's non-obesebody habitus/comorbidities (PHTN), according to her preference we will schedule a WatchPAT study followed by APAP therapy potentially, if straightforward BOGDAN is found. The patient is agreeable to retu rning for attended PSG/PAP titration if WatchPAT is inconclusive. 3. Continue routine follow up with pulmonology and management of PHTN/diuretic therapy. 4. The patient should strive to get 7-8 hours of consecutive sleep at night. 5. Lifestyle modification with diet changes and exercise as feasible because weight loss results inimprovement of sleep disordered breathing. 6. Driving precautions. If significantly sleepy or tired, the patient should avoid driving; operating heavy machinery; or engaging in any activity that requires intact alertness. Follow up after sleep testing or 5-6 weeks after starting treatment with CPAP; as applicable. Thank you for allowing me to participate in the care of this patient. Please CC to the patient's PCP: Sarah Galaviz, [address] [facility] [place] [address] (office) [phone] (fax) Mumtaz Armenta MD [facility], [address] [address] 11/18/23 11:25 AM documented in this encounter Miscellaneous Notes * Pt Handout (on AVS) - Mumtaz Armenta MD - 11/18/2023 11:26 AM EST Images from the original note were not included. [id number] Monitoring Your Sleep: Home Sleep Apnea Study A home sleep apnea study tracks and records body functions while you?re asleep in your own bed. Theresults of the study will help diagnose sleep apnea and plan your treatment. Not every person is a candidate for home sleep apnea studies. Your healthcare provider will tell you which type of study is best for you. How a home sleep apnea study works During a sleep study, sensors attached to your body measure things, such as your breathing, oxygen level, and other body functions. You will be shown how to attach the sensors to your body. You may also have help from a security system technician. At bedtime you plug the sensors into a small computer and turn it on. In the morning, you will remove the sensors and return the computer so the results can be studied. A sleep healthcare provider reviews the results and sends the information back to your healthcare provider. Your provider will then discuss the results with you. Tips You?ll be given directions for how to set up the sensors and the computer. Doing so will be simple.For best results: Go through the directions during the day so you?ll be ready to use the equipment at bedtime. Stick to your normal routine. Ask your healthcare provider if you should do anything differentlythe night of the study. If you normally use caffeine or alcohol, or take sleep medicine before bed,be sure to let your provider know. If you get up during the night, reconnect the sensors to the computer or to yourself correctly. Get as many hours of sleep as you can. Getting the results The results of your sleep study need to be scored and interpreted. Once this is done, your healthcare provider will discuss the findings with you. The sleep study results will show whether you have apnea. This is when your breathing stops temporarily many times during the night, awakening you briefly. It can also tell how severe the apnea is. The findings help your healthcare provider know which treatment or treatments may be the right ones for you. Last Reviewed Date: 01/13/202219990199-3568 [employer]. All rights reserved. This information is not intended as a substitute for professional medical care. Always follow your healthcare professional's instructions. * Pt Handout (on AVS) - Mumtaz Armenta MD - 11/18/2023 11:26 AM EST Images from the original note were not included. Continuous Positive Airway Pressure (CPAP) - Video Continuous positive airway pressure is a common treatment for obstructive sleep apnea. This video shows how CPAP works and how it helps you breathe better. To view the video go to this web address: [email or web address] Or, scan this QR code with your smart phone Last Reviewed Date: 09/15/202019992042-0587 [employer]. All rights reserved. This information is not intended as a substitute for professional medical care. Always follow your healthcare professional's instructions. * Pt Handout (on AVS) - Mumtaz Armenta MD - 11/18/2023 11:26 AM EST Images from the original note were not included. [id number] What Are Snoring and Obstructive Sleep Apnea? If you?ve ever had a stuffed-up nose, you know the feeling of trying to breathe through a very narrow passageway. This is what happens in your throat when you snore. While you sleep, structures in your throat partly block your air passage. This makes the passage narrow and hard to breathe through. This can interrupt sleep. When this happens, it is called obstructive sleep apnea. Snoring If your throat structures are too large or the muscles relax too much during sleep, the air passagemay be partly blocked for a brief moment. But the air eventually passes through. As air from the nose or mouth passes around this blockage, the throat structures vibrate. This causes the familiar sound of snoring. This snoring sound can be loud enough to disrupt the sleep of other people. Snoring gets worse as more and more of the air passage is blocked. Obstructive sleep apnea If the structures partly or completely block the throat, air can?t flow to the lungs at all. This is called hypopnea (decreased breathing) or apnea (meaning ?no breathing?). The lungs aren?t getting fresh air. So the brain tells the body to wake up just enough to tighten the muscles and unblock theair passage. With an audible gasp, breathing starts again. This process may be repeated over and over again during the night. This can make your sleep fragmented with tape deck installer stages of sleep. You maynot remember waking up many times during the night. But because of tape deck installer sleep, you will most likely feel tired the next day. The lack of sleep and fresh air can also strain your lungs, heart, and other organs. This may lead to problems such as high blood pressure, diabetes, changes in thinking, behavioral disorders, heart attack, or stroke. Obstructive sleep apnea Problems in the nose and jaw Problems in the structure of the nose may block breathing. A crooked (deviated) septum or swollen turbinates can make snoring worse or lead to apnea. Also, a receding jaw may make the tongue sit too far back. Then, it?s more likely to block the airway when you?re asleep. Last Reviewed Date: 01/13/202219991272-4867 [employer]. All rights reserved. This information is not intended as a substitute for professional medical care. Always follow your healthcare professional's instructions. * Pt Handout (on AVS) - Mumtaz Armenta MD - 11/18/2023 11:26 AM EST Images from the original note were not included. [id number] Mouthpieces for Sleep Apnea For simple snoring or mild to moderate sleep apnea, a special mouthpiece may help. Your healthcare provider will diagnose your breathing problem and write a prescription for the mouthpiece. Mouthpieces are also called oral appliances. You will then be referred to a dentist qualified to make an oralappliance just for you. A follow-up sleep study checks how well the device is working for you. The dentist will then provide ongoing care to make certain your mouthpiece fits correctly and remains comfortable. Many different mouthpieces are available, so follow directions for your specific device. Moving the jaw and tongue forward with a mouthpiece can open the airway to reduce sleep apnea. Moving the jaw forward Most mouthpieces move the jaw and tongue forward. That keeps the tongue from blocking the airway. Mouthpieces can work well. But they are not for everyone. Work with your healthcare provider to get amouthpiece that fits just right for you. Oral appliances are usually custom made for you by a dental professional. Avoid using [id number] mouthpieces. They often don't work. Tips To have the most success with your mouthpiece, keep these tips in mind: It will take some time to get used to wearing a mouthpiece. At first it may feel uncomfortable. Or make your mouth water. If these problems last, tell your healthcare provider. Expect several rounds of adjustments to get the mouthpiece to fit and work just right for you. Mouthpieces don?t cure the problems that cause snoring or sleep apnea. So, you need to use your mouthpiece all night, every night. Follow your healthcare provider?s directions for keeping the mouthpiece clean. Store your mouthpiece in its case when you're not wearing it. Last Reviewed Date: 01/13/202219990551-8064 [employer]. All rights reserved. This information is not intended as a substitute for professional medical care. Always follow your healthcare professional's instructions. * Pt Handout (on AVS) - Mumtaz Armenta MD - 11/18/2023 11:25 AM EST [id number] Obstructive Sleep Apnea Obstructive sleep apnea is a condition caused by air passages becoming narrowed or blocked during sleep. As a result, breathing stops for short periods. Your body wakes up enough for breathing to start again. But you don't remember it. The cycle of stopped breathing and brief awakenings can repeat dozens of times a night. This prevents the body from getting to the deeper stages of sleep that are needed for good rest. Signs of sleep apnea include loud snoring, noisy breathing, and gasping sounds during sleep. Peoplewith sleep apnea often find they use the bathroom many times during the night. Daytime symptoms include waking up tired after a full night's sleep and waking up with headaches. They can also include feeling very sleepy or falling asleep during the day, and having problems with memory or concentration. Risk factors for sleep apnea include: Being overweight Being assigned male at , or being in menopause Smoking Using alcohol or sedating medicines Having enlarged structures in the nose or throat such as enlarged tonsils or adenoids, or extra tissue in the airway Home care Lifestyle changes that can help treat snoring and sleep apnea include: If you're overweight, talk with your healthcare provider about a weight-loss plan for you. Don't drink alcohol for 3 to 4 hours before bedtime. Don't take sedating medicines. Ask your healthcare provider about the medicines you take. If you smoke, talk to your provider about ways to quit. It's important to stay away from secondhand smoke. Don't use e-cigarettes because of their harmful side effects. Sleep on your side. This can help prevent gravity from pulling relaxed throat tissues into your breathing passages. If you have allergies or sinus problems that block your nose, ask your provider for help. Use positive airway pressure (PAP). Discuss with your provider the benefits of using PAP at home. And talk about the type of PAP that's best for you. Follow-up care Follow up with your healthcare provider, or as advised. A diagnosis of sleep apnea is made with a sleep study. Your provider can tell you more about this test. When to get medical care See your healthcare provider if you have daytime symptoms of sleep apnea. These include: Waking up tired after a full night's sleep Waking up with a headache Feeling very sleepy or falling asleep during the day Having problems with memory or concentration Also talk with your provider if your partner tells you that you snore, gasp for air, or stop breathing while you sleep. Seeing your provider is important because sleep apnea can make you more likely to have certain health problems. These include high blood pressure, heart attack, stroke, and sexual dysfunction. If youhave sleep apnea, talk with your healthcare provider about the best treatments for you. Last Reviewed Date: 01/13/202219997991-1895 [employer]. All rights reserved. This information is not intended as a substitute for professional medical care. Always follow your healthcare professional's instructions. documented in this encounter Plan of Treatment Upcoming Encounters Date Type Department Care Team (Latest Contact Info) Description 4 11:00 AM EDT Laboratory Laboratory [address] [place] [phone] [address] [place] [address] 4 8:00 AM EDT Hospital Encounter ENDO [facility], Endoscopy Room [facility] [address] [place] [phone] Favian Escalante MD [address] [place] [address] 4 8:00 AM EDT - 4 9:00 AM EDT Surgery ENDO [facility], Endoscopy Room [facility] [address] [place] [phone] Favian Escalante MD [address] [place] [address] ESOPHAGOGASTRODUODENOSCOPY (EGD), FLEXIBLE, TRANSORAL, ENDOSCOPIC ULTRASOUND 4 7:15 AM EDT Cardiac Studies Cardiac Studies, [facility] [address] [place] [address] 4 8:30 AM EDT PulmDiagnostic Pulmonary Function Lab, [facility] [address] [place] [address] West, Pft [address] [place] [address] 4 11:40 AM EDT Office Visit Hepatology, [facility] [address] [place] [address] Evangelina Dorado, DO [address] [place] [address] 4 11:00 AM EDT Laboratory Laboratory [address] [place] [phone] [address] [place] [address] 4 1:00 PM EDT Office Visit Family Practice [facility] [address] [place] [address] Sarah Galaviz, DO [address] [place] [address] 4 2:00 PM EDT Office Visit Hematology/Onco logy Elma Francois [place] [address] [place] [phone] Anthony Ritchie MD [address] [place] [address] Scheduled Orders Name Type Priority Associated Diagnoses Orde r Schedule HOME SLEEP TEST W/TYPE 4 MONITOR, 3 CHANNEL Procedures Routine Sleep apnea, unspecified type Nocturnal hypoxemia PHT (pulmonary hypertension) (HCC) Ordered: 11/18/2023 Scheduled Procedures Name Priority Associated Diagnoses Date/Ti [...] 10/15/2019 LUNG CANCER SCREENING - USE SMARTSET 51726 Completed 07/09/2019 Zoster Vaccines Completed 07/10/2020, 04/14/2020 [...] as of this encounter Visit Diagnoses Diagnosis Sleep apnea, unspecified type- Primary Nocturnal hypoxemia Hypoxemia PHT (pulmonary hypertension) (HCC) Other chronic pulmonary heart diseases Hepatic cirrhosis, unspecified hepatic cirrhosis type, unspecified whether ascites present (HCC) Anemia, unspecified type documented in this encounter Care Teams Clinical Immunologist Relationship Specialty Start Date End Date Sarah Galaviz DO [address] [place] [address] PCP - General Family Medicine 06/30/19 documented as of this encounter
--- OUTSIDE RECORDS SUMMARY | 2023-12-10 20:24 | External Medical Summary | Summary of Care ---
Author Name Unknown Organization [facility] Address [address] [facility] [place] [address] Phone [phone] Care Team Providers Care Physical Sciences Instructor Name Role Phone Sarah Galaviz DO Primary Care Provider [phone] Encounter Details Date Type Department Care Team (Late st Contact Info) Description 12/03/2023 Telephone Hematology/Oncology [facility] [address] [place] [address] Randell Hammond CRNP [address] [facility] [place] [address] Allergies No known active allergiesdocumented as [...] EDT MyG sent. * Telephone Encounter - Manish Randell WINSTON Reyes - 12/03/2023 8:26 AM EDT Results for [...] 4 8:00 AM EDT Hospital Encounter ENDO [facility], Endoscopy Room [facility] [address] [place] [address] Favian Escalante MD [address] [place] [address] 4 8:00 AM EDT - 4 9:00 AM EDT Surgery ENDO [facility], Endoscopy Room [facility] [address] [place] [phone] Favian Escalante MD [address] [place] [address] ESOPHAGOGASTRODUODENOSCOPY (EGD), FLEXIBLE, TRANSORAL, ENDOSCOPIC ULTRASOUND 4 7:15 AM EDT Cardiac Studies Cardiac Studies, [facility] [address] [place] [address] 4 8:30 AM EDT PulmDiagnostic Pulmonary Function Lab, [facility] [address] [place] [address] West, [address] [place] [address] 4 1:30 PM EDT PulmDiagnostic Sleep Lab [facility] [address] [place] [address] [facility], Sleep Med Home Study [facility] [address] [place] [address] 4 11:40 AM EDT Office Visit Hepatology, [facility] [address] [place] [address] Evangelina Dorado, DO [address] [place] [address] 4 11:00 AM EDT Laboratory Laboratory [address] [place] [phone] [address] [place] [address] 4 1:00 PM EDT Office Visit Family Practice [facility] [address] [place] [address] Sarah Galaviz, DO [address] [place] [address] 4 2:00 PM EDT Office Visit Hematology/Onco logy Elma Francois [place] [address] [place] [phone] Anthony Ritchie MD [address] [place] [address] Scheduled Procedures Name Priority Associated Diagnoses Date/Ti [...] 10/15/2019 LUNG CANCER SCREENING - USE SMARTSET [id number] Completed 07/09/2019 Zoster Vaccines Completed 07/10/2020, 04/14/2020 [...] type documented in this encounter Care Teams Physical Sciences Instructor Relationship Specialty Start Date End Date Sarah Galaviz DO [address] [facility] [place] [address] PCP - General Family Medicine 06/30/19 documented as of this encounter
--- OUTSIDE RECORDS SUMMARY | 2023-12-10 20:24 | External Medical Summary ---
Author Name Unknown Address Unknown Organization K01:[facility] [place] [facility] [address] [facility] [address] [facility] [address] Laboratory Report Ordering Provider Test Date Status ALEA MEJIAS 12/02/2023 11:24:14 Final Observation Date Value Abnormality Reference (Units ) Status WBC, Total 12/02/2023 11:24:14 4.95 4.00-10.8 0 (K/uL) Final RBC 12/02/2023 11:24:14 3.07 3.85-5.15 (M/uL) Final Hemoglobin 12/02/2023 11:24:14 8.3 Below low normal 12 .0-15.3 (g/dL) Final HCT 12/02/2023 11:24:14 28.5 Below low normal 36. 0-45.2 (%) Final MCV 12/02/2023 11:24:14 92.8 81.5-97.5 (fL) Final MCH 12/02/2023 11:24:14 27.0 27.0-34.0 (pg) Final MCHC 12/02/2023 11:24:14 29.1 32.0-36.0 (g/dL) Final RDW 12/02/2023 11:24:14 24.3 11.5-15.5 (%) Final Platelets 12/02/2023 11:24:14 98 Below low normal 140 -400 (K/uL) Final MPV 12/02/2023 11:24:14 Final No result - abnormal platele t distribution. Nucleated erythrocytes/100 leukocytes [Ratio] in Blood by Automated count 12/02/2023 11:24:14 1 Above high normal <=0 (/100 WBCs) Final Performing Location [facility] [place] [address] [place] [address]
--- OUTSIDE RECORDS SUMMARY | 2023-12-10 20:24 | External Medical Summary | Summary of Care ---
Author Name Unknown Organization [facility] Address [address] [facility] [place] [address] Phone [phone] Care Team Providers Care Tracer Powder Blender Name Role Phone Sarah Galaviz DO Primary Care Provider [phone] Reason for Visit * Reason Onset Date Comments Precert Future 12/03/2023 Monoferric Encounter Details Date Type Department Care Team (Late st Contact Info) Description 12/03/2023 Telephone Hematology/Oncology [facility] [address] [facility] [address] [place] [address] Tammy Hammond CRNP [address] [employer] [place] [address] Precert Future (Monoferric) Allergies [...] Room [facility] [address] [place] [phone] Favian Escalante MD [address] [place] [address] 4 8:00 AM EDT - 4 9:00 AM EDT Surgery [facility]O [facility], Endoscopy Room [facility] [address] [place] [phone] Favian Escalante MD [address] [place] [address] ESOPHAGOGASTRODUODENOSCOPY (EGD), FLEXIBLE, TRANSORAL, ENDOSCOPIC ULTRASOUND 4 7:15 AM EDT Cardiac Studies Cardiac Studies, [facility] 132 [facility] [place] [address] 4 8:30 AM EDT PulmDiagnostic Pulmonary Function Lab, [facility] 132 [facility] [place] [address] West, Pft [address] [facility] [place] [address] 4 1:30 PM EDT PulmDiagnostic Sleep Lab [facility] [address] [facility] [place] [address] [facility] Sleep Med Home Study [facility] [place] [address] 4 11:40 AM EDT Office Visit Hepatology, [facility] [address] [place] [address] Evangelina Dorado, DO [address] [place] [address] 4 11:00 AM EDT Laboratory Laboratory [address] [place] [phone] [address] [place] [address] 4 1:00 PM EDT Office Visit Family Practice [facility] [address] [place] [address] Sarah Galaviz, DO [address] [place] [address] 4 2:00 PM EDT Office Visit [facility] [address] [place] [address] Anthony Ritchie MD [address] [place] [address] Scheduled Procedures Name Priority Associated Diagnoses Date/Ti [...] 10/15/2019 LUNG CANCER SCREENING - USE SMARTSET [id number] Completed 07/09/2019 Zoster Vaccines Completed 07/10/2020, 04/14/2020 [...] filedocumented as of this encounter Care Teams Tracer Powder Blender Relationship Specialty Start Date End Date Sarah Galaviz DO [address] [place] [address] PCP - General Family Medicine 06/30/19 documented as of this encounter
--- OUTSIDE RECORDS SUMMARY | 2023-12-10 20:25 | External Medical Summary | Summary of Care ---
Author Name Unknown Organization [facility] Address [address] [facility] [place] [address] Phone [phone] Care Team Providers Care Steam Table Attendant Name Role Phone Sarah Galaviz DO Primary Care Provider [phone] Reason for Visit * Reason Comments Outpatient Testing * Precert (Within 10 days (routine)) - Authorized Specialty Diagnoses / Procedures Referred By Contac t Referred To Contact Diagnoses Elevated anti-tissue transglutaminase (tTG) IgA level Procedures HLA TYPING FOR CELIAC DISEASE Evangelina Dorado DO [address] [employer] [place] [address] Evangelina Dorado DO [address] [employer] [place] [phone] Referral ID Status Reason Start Date Expiration Date V isits Requested Visits Authorized [id number] Authorized Precert 10/23/2023 02/21/[phone] Encounter Details Date Type Department Care Team (Latest Contact Info) Description 10/23/2023 11:20 AM EST Laboratory Laboratory, [facility] [address] [place] [address] [place] [facility] [email or web address] [address] [place] [address] Elevated anti-tissue transglutaminase (tTG) IgA level Allergies No known active allergiesdocumented as of this encounter (statuses as of 10/23/2023) Medications Medication Sig Dispensed Refills Start Date End Date Status Acetaminophen ER (TYLENOL 8 HOUR ARTHRITIS PAIN) 650 MG TBCR Take 1 Tablet by mouth every 8 hours as needed for Fever. 0 Active Fluticasone Propionate 50 MCG/ACT Nasal Suspension Administer 2 Sprays into each nostril daily. 16 g 3 06/23/2020 Active Additional Information Patient not taking.Reported on 08/13/2023 GENERIC EXTERNAL MEDICATION Balance of nature- fruit & vegetable vitamin 0 Active Ambrisentan 10 MG Oral Tablet (Letairis) Take 1 Tablet by mouth daily. 30 Tablet 11 10/01/2021 Active Potassium Chloride Hseron ER 20 MEQ Oral Tablet Extended ReleaseIndications:E [...] tightness, sob). 18 g 1 08/13/2023 Active Folic Acid 1 MG Oral TabletIndications:Pa ncytopenia (HCC) Take 1 Tablet by mouth in the morning. 30 Tablet 2 08/21/2023 Active Additional Information Patient not taking.Reported on 10/23/2023 Sildenafil Citrate 20 MG Oral Tablet (Revatio)Indications :PHT (pulmonary hypertension) (HCC) Take 1 tablet in the morning, 1 tablet at noon, and 1 tablet before bedtime. Generic for Revatio. 90 Tablet 11 09/23/2023 Active Hospital, Clinic, or Other Facility Administered Medication Ordered Dose Route Frequency Start Date End Date Status albuterol sulfate (PROVENTIL) (2.5 MG/3ML) 0.083% inhalation solution 2.5 mgIndications:PHT (pulmonary hypertension) (HCC),Tobacco abuse, in remission,Pancytopenia (HCC),Environmental exposure,Secondhand smoke exposure 2.5 mg NEBULIZER Q4H PRN 07/08/2019 Active documented as of this encounter (statuses as of 10/23/2023) Active Problems Problem Noted Date Diagnosed Date Unspecified cirrhosis of liver 04/14/2020 Thrombocytopenia 10/15/2019 GENI positive 07/07/2019 PHT (pulmonary hypertension) 07/06/2019 Overview: Suspected on Echocardiogram when Hgb low. 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 Secondhand smoke exposure 07/06/2019 Environmental exposure 07/06/2019 Overview: Chickens, Ducks Pancytopenia documented as of this encounter (statuses as of 10/23/2023) Immunizations Name Administration Dates Next Due Pneumococcal Polysaccharide PPV23 (Pneumovax) 04/21/2020 Seasonal Influenza Virus Vac cine, Unspecified Formulation 10/15/2019 Seasonal Influenza, PF, 6 M & above, IM , (FluLaval or Fluzone) 08/13/2023,07/10/2020,10/15/2019 TDAP (age 10 and older)(Boostrix) 10/15/2019 Zoster Vaccine Recombinant (Shingrix) 07/10/2020 ,04/14/2020 documented as of this encounter Social History Tobacco Use Types Packs/Day Years Used Date Smoking Tobacco: Former Cigarettes 1 20 1 981 - 05/27/2019 Smokeless Tobacco: Never [...] Department Care Team (Latest Contact Info) Description 10/31/2023 12:20 PM EST Office Visit Pulmonary Medicine, [facility] [address] [facility] [place] [address] Ray Rose DO [address] [facility] [place] [address] 11/06/2023 9:00 AM EST Office Visit Hematology/Oncol ogy [facility] [place] [address] [place] [address] Tammy Hammond CRNP [address] [place] [address] 11/13/2023 9:00 AM EST Office Visit Rheumatology [facility] [address] [facility] [place] [address] Maico Carrillo CRNP [address] [facility] [place] [address] 12/11/2023 8:00 AM EDT Hospital Encounter ENDO [facility], Endoscopy Room [facility] [address] [place] [phone] Favian Escalante MD [address] [place] [address] 12/11/2023 8:00 AM EDT - 12/11/2023 9:00 AM EDT Surgery ENDO [facility], Endoscopy Room [facility] [address] [place] [phone] Favian Escalante MD [address] [place] [address] ESOPHAGOGASTRODUODENOSCOPY (EGD), FLEXIBLE, TRANSORAL, ENDOSCOPIC ULTRASOUND 01/23/2024 11:40 AM EDT Office Visit Hepatology, [facility] [address] [place] [address] Evangelina Dorado, DO [address] [place] [address] 02/11/2024 1:00 PM EDT Office Visit Family Practice [facility] [address] [place] [address] Sarah Galaviz, DO [address] [place] [address] Pending Results Name Type Priority Associated Diagnoses Date /Time HLA TYPING FOR CELIAC DISEASE Lab Routine Elevated anti-tissue transglutaminase (tTG) IgA level 10/23/2023 11:14 AM EST CELIAC DISEASE SEROLOGY REFLEX PANEL Lab Routine Elevated anti-tissue transglutaminase (tTG) IgA level 10/23/2023 11:14 AM EST CELIAC DISEASE SEROLOGY Lab Routine Elevated anti-tissue transglutaminase (tTG) IgA level 10/23/2023 11:14 AM EST Scheduled Procedures Name Priority Associated Diagnoses Date/Ti me ESOPHAGOGASTRODUODENOSCOPY ( EGD), FLEXIBLE, TRANSORAL, ENDOSCOPIC ULTRASOUND Hepatic cirrhosis, unspecified hepatic cirrhosis type, unspecified whether ascites present (HCC) Anemia, unspecified type 12/11/2023 8:00 AM EDT Health Maintenance Due Date Last Done Comments COVID-19 Vaccine (#1) 06/09/1961 HIV Screening 1977 Hepatitis C Screening 1980 HPV/Co-Test 1992 Cologuard 12/08/2007 Colonoscopy 12/08/2007 Colorectal Cancer Screening 12/08/2007 Fecal Occult Blood Test 12/08/2007 Sigmoidoscopy 12/08/2007 Cervical Cancer Screening 11/26/2013 Pap Smear 11/26/2013 11/26/2010 Mammogram 11/11/2020 11/11/2019, 01/14/2011 Pneumococcal Vaccine: Pediatrics (0 to 5 Years) and At-Risk Patients (6 to 64 Years) (2 - PCV) 04/21/2021 04/21/2020 Hepatitis B (1 of 3 - Risk 3-dose series) 2022 Depression Screening 08/13/2024 08/13/2023 Lipid Panel 10/19/2024 10/19/2019, 06/17, 11/10/2010, Additional history exists Diabetes Screening 08/21/2026 08/21/2023, 1 10/13/2022, 08/05/2023, Additional history exists DTaP,Tdap,and Td Vaccines (2 - Td or Tdap) 10/15/2029 10/15/2019 LUNG CANCER SCREENING - USE SMARTSET [id number] Completed 07/09/2019 Zoster Vaccines Completed 07/10/2020, 04/14/2020 [...] as of this encounter Visit Diagnoses Diagnosis Elevated anti-tissue transglutaminase (tTG) IgA level Hepatic cirrhosis, unspecified hepatic cirrhosis type, unspecified whether ascites present (HCC) Anemia, unspecified type documented in this encounter Care Teams Steam Table Attendant Relationship Specialty Start Date End Date Sarah Galaviz DO [address] [place] [address] PCP - General Family Medicine 06/30/19 documented as of this encounter
--- OUTSIDE RECORDS SUMMARY | 2023-12-10 20:25 | External Medical Summary | Summary of Care ---
Author Name Unknown Organization [facility] Address [address] [place] [address] Phone [phone] Care Team Providers Care Chemical Strength Tester Name Role Phone Sarah Galaviz DO Primary Care Provider [phone] Reason for Referral * Evaluate & Treat - Unlimited Visits (Within 10 days (routine)) - Pending Review Specialty Diagnoses / Procedures Referred By Contact Referred To Contact GI NUTRITION/IM / Gastroenterology Diagnoses Celiac disease Evangelina Dorado DO [address] [place] [address] Referral ID Status Reason Start Date Expiration Date Visits Requested Visits Authorized [id number] Pending Review Specialty Services Required 10/24/[phone] Question Answer Referral Priority Within 10 days (routine) Where should this appointment be scheduled? [facility] For what condition is the patient being seen? Other Comments Celiac disease. Educate on gluten free diet. Encounter Details Date Type Department Care Team (Late st Contact Info) Description 10/24/2023 Telephone Hepatology, [facility] [address] [place] [address] Evangelina Dorado DO [address] [place] [address] Allergies No known active allergiesdocumented as of this encounter (statuses as of 10/24/2023) Medications Medication Sig Dispensed Refills Start Date [...] as of this encounter (statuses as of 10/24/2023) Active Problems Problem Noted Date Diagnosed Date Unspecified cirrhosis of liver 04/14/2020 Thrombocytopenia 10/15/2019 GENI positive 07/07/2019 PHT (pulmonary hypertension) 07/06/2019 Overview: Suspected on Echocardiogram when Hgb low. 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 Secondhand smoke exposure 07/06/2019 Environmental exposure 07/06/2019 Overview: Chickens, Ducks Pancytopenia documented as of this encounter (statuses as of 10/24/2023) Immunizations Name Administration Dates Next Due Pneumococcal [...] Miscellaneous Notes * Telephone Encounter - Evangelina Dorado DO - 10/24/2023 2:42 PM EST Please let patient know her celiac serologies are consistent with celiac disease as they were concerning for in the past. I advise that she starts a gluten free diet immediately as that may be contributing to her anemia as well. We will also place a nutrition referral to educate her on a gluten free diet. Evangelina Dorado DO documented in this encounter Plan of Treatment Upcoming Encounters Date Type Department Care Team (Latest Contact Info) Description 10/31/2023 12:20 PM EST Office Visit Pulmonary Medicine, [facility] [address] [place] [address] [facility] [address] [facility] [id number] 11/06/2023 9:00 AM EST Office Visit Hematology/Oncol ogy [facility] [place] [address] [place], [place] [address] Tammy Hammond CRNP [address] [place] [address] 11/13/2023 9:00 AM EST Office Visit Rheumatology [facility] [address] [place] [address] Maico Carrillo CRNP [address] [place] [address] 12/11/2023 8:00 AM EDT Hospital Encounter ENDO [facility], Endoscopy Room [facility] [address] [place] [phone] Favian Escalante MD [address] [place] [address] 12/11/2023 8:00 AM EDT - 12/11/2023 9:00 AM EDT Surgery ENDO [facility], Endoscopy Room [facility] [address] [place] [phone] Favian Escalante MD [address] [place] [address] ESOPHAGOGASTRODUODENOSCOPY (EGD), FLEXIBLE, TRANSORAL, ENDOSCOPIC ULTRASOUND 01/23/2024 11:40 AM EDT Office Visit Hepatology, [facility] [address] [place] [address] Evangelina Dorado, DO [address] [place] [address] 02/11/2024 1:00 PM EDT Office Visit Family Practice [facility] [address] [place] [address] Sarah Galaviz, DO [address] [place] [address] Scheduled Procedures Name Priority Associated Diagnoses Date/Ti me ESOPHAGOGASTRODUODENOSCOPY ( EGD), FLEXIBLE, TRANSORAL, ENDOSCOPIC ULTRASOUND Hepatic cirrhosis, unspecified hepatic cirrhosis type, unspecified whether ascites present (HCC) Anemia, unspecified type 12/11/2023 8:00 AM EDT Scheduled Referrals Name Type Priority Associated Diagnoses Orde r Schedule GI NUTRITION REFERRAL OP Referral Within 10 days (routine) Celiac disease Ordered: 10/24/2023 Health Maintenance Due Date Last Done Comments [...] Screening 08/13/2024 08/13/2023 Lipid Panel 10/19/2024 10/19/2019, 10/09/2017, 11/10/2010, Additional history exists Diabetes Screening 10/23/2026 10/23/2023, 1 10/22/2022, 08/13/2023, Additional history exists DTaP,Tdap,and Td Vaccines (2 - Td or Tdap) 10/15/2029 10/15/2019 LUNG CANCER SCREENING - USE SMARTSET [id number] Completed 07/09/2019 Zoster Vaccines Completed 07/10/2020, 04/14/2020 [...] as of this encounter Visit Diagnoses Diagnosis Celiac disease- Primary Hepatic cirrhosis, unspecified hepatic cirrhosis type, unspecified whether ascites present (HCC) Anemia, unspecified type documented in this encounter Care Teams Chemical Strength Tester Relationship Specialty Start Date End Date Sarah Galaviz DO [address] [place] [address] PCP - General Family Medicine 06/30/19 documented as of this encounter
--- OUTSIDE RECORDS SUMMARY | 2023-12-10 20:25 | External Medical Summary ---
Author Name Unknown Address Unknown Organization K01:[facility] [place] - [address] [place] [address] Laboratory Report Ordering Provider Test Date Status ALEA MEJIAS 11/06/2023 10:08:29 Final Observation Date Value Abnormality Reference (Units ) Status Ferritin 11/06/2023 10:08:29 21 13-150 (ng /mL) Final Postmenopausal women have hi gher ferritin levels than pre-menopausal women. The above reference interval is based on pre-menopausal women. Performing Location [facility] - [address] [place] [address]
--- OUTSIDE RECORDS SUMMARY | 2023-12-10 20:25 | External Medical Summary | Summary of Care ---
Author Name Unknown Organization [facility] Address [address] [facility] [place] [address] Phone [phone] Care Team Providers Care Farmworker Fruit Name Role Phone Sarah Galaviz DO Primary Care Provider [phone] Reason for Visit * Reason Comments Follow Up F/U Encounter Details Date Type Department Care Team (Late st Contact Info) Description 11/06/2023 9:00 AM EST Office Visit Hematology/Oncology [facility] [address] [facility] [address] Tammy Hammond CRNP [address] [facility] [place] [address] Pancytopenia (HCC)*; Iron deficiency anemia, unspecified iron deficiency anemia type; Hepatic cirrhosis, unspecified hepatic cirrhosis type, unspecified whether ascites present (HCC); Indirect hyperbilirubinemia; Celiac disease; PHT (pulmonary hypertension) (HCC) Allergies No known active allergiesdocumented as of this encounter (statuses as of 11/09/2023) Medications Medication Sig Dispensed Refills Start Date [...] Active Additional Information Patient not taking.Reported on 11/06/2023 Folic Acid 1 MG Oral TabletIndications:Pa ncytopenia [...] as of this encounter (statuses as of 11/09/2023) Active Problems Problem Noted Date Diagnosed Date Nocturnal hypoxemia 10/31/2023 Sleep-disordered breathing 10/31/2023 Celiac disease 10/30/2023 Unspecified cirrhosis of liver 04/14/2020 Thrombocytopenia 10/15/2019 GENI positive 07/07/2019 PHT (pulmonary hypertension) 07/06/2019 Overview: Suspected on Echocardiogram when Hgb low. 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 Secondhand smoke exposure 07/06/2019 Environmental exposure 07/06/2019 Overview: Chickens, Ducks Pancytopenia documented as of this encounter (statuses as of 11/09/2023) Immunizations Name Administration Dates Next Due Pneumococcal [...] Sign Reading Time Taken Comments Blood Pressure 105/70 11/06/2023 8:56 AM EST Pulse 86 11/06/2023 8:56 AM EST Temperature 36.8 C (98.2 F) 11/06/2023 8:56 AM ES T Respiratory Rate 18 11/06/2023 8:56 AM EST Oxygen Saturation 93% 11/06/2023 8:56 AM EST Inhaled Oxygen Concentration - - Weight 81.7 kg (180 lb 1.6 oz) 11/06/2023 8:56 A M EST Height - - Body Mass Index 29.97 10/31/2023 11:58 AM EST documented in this encounter Progress Notes * Tammy HammondWINSTON - 11/06/2023 9:00 AM EST Images from the original note were not included. Hematology/Oncology Outpatient Clinic note [facility] [address] [facility] [place] [address] Name: Marianne Chand Date: 11/06/2023 CHIEF COMPLAINT: Marianne Chand is a 62 year old female patient of Dr. Anthony Ritchie here today for f/u visit today. From Patient chart confirmed with patient. HEMATOLOGY/ONCOLOGY DIAGNOSIS: Pancytopenia Iron deficiency anemia Liver cirrhosis and splenomegaly Indirect hyperbilirubinemia Celiac Disease CURRENT TREATMENT: Pending HISTORY OF PRESENT ILLNESS: Previous patient of Dr. Ritchie. Per last office note 03/20/20: Patient was seen by Dr. Gonzalez initially on 08/26/2018 for the evaluation of anemia.She states that she was having symptoms of dizziness in June and had "pulled a muscle" took prednisone taper prescribed by her PCP and states that the dizziness and pain that she had resolved with taking prednisone. She denies any myalgias or arthralgias currently. She has fatigue but otherwise states that she I feeling well. She denies any melena or hematochezia or any bleeding symptoms. Denies any fever or chills or unintentional weight loss or swollen glands or shortness or chest pain. Labs on 07/15/18 showed: Cbc with diff - wbc 4.55 hemoglobin 9.4 hematocrit 29% and platelet ct 111 mcv 93.2, t bili 1.7, crp was elevated - 8, Sed rate elevated 67, Ferritin was 67, Iron tibc transferrin sat were normal, b12 and folate were within normal range, Absolute retic 78.5, tsh was normal 1.41, 07/20/18 GENI positive. Smear showed "teardrops frequent and moderate poikilocytosis, Cbc also reported rare nucleated rbc and occasional cigar shaped forms and mild thrombocytopenia Normal wbc morphology reported. She was treated with antibiotics. Last CBC was done 05/27/2019 shows WBC count 4.19 hemoglobin 10.1 and platelet count were 64,000. Electrolytes were normal and total bilirubin was 3.9 and direct was 0.6. Liver enzymes were normal. She also had ultrasound of the right upper quadrant and shows no cholelithiasis or biliary ductal dilatation with there was mild splenomegaly. Peripheral Blood Smear: 1) Anisopoikilocytosis of RBCs with mixed populations of hypochromic RBCs, spherocytes, polychromasia, and a few tear drop cells. No obvious increase in schistocytes seen. 2) Decreased platelet count with essentially unremarkable morphology. Also previously followed with hepatology for fatty liver disease and possible autoimmune liver process as well as possible celiac disease. Also followed with rheumatology for GENI positive arthritis. Was LTF during pandemic with all specialists. Interval History: Component Latest Ref Rng 05/23/2020 12/01/2020 04/18/2021 08/05/2023 08/13/2023 WBC 4.00 - 10.80 K/uL 4.81 4.03 3.14 (L) 4.68 5.55 RBC 3.85 - 5.15 M/uL 4.04 3.58 (L) 3.08 (L) 3.17 3.33 HGB 12.0 - 15.3 g/dL 12.2 10.2 (L) 9.2 (L) 8.6 (L) 8.9 (L) HCT 36.0 - 45.2 % 36.9 32.8 (L) 30.5 (L) 29.3 (L) 30.0 (L) MCV 81.5 - 97.5 fL 91.3 91.6 99.0 (H) 92.4 90.1 MCH 27.0 - 34.0 pg 30.2 28.5 29.9 27.1 26.7 MCHC 32.0 - 36.0 g/dL 33.1 31.1 (L) 30.2 (L) 29.4 29.7 RDW 11.5 - 15.5 % 17.2 (H) 18.1 (H) 20.9 (H) 22.4 22.4 PLT 140 - 400 K/uL 114 (L) 111 (L) 91 (L) 95 (L) 72 (L) MPV 6.6 - 11.1 fL 9.5 9.2 10.5 10.5 10.8 nRBCs <=0 /100 WBCs 1 (H) 1 (H) Was seen in [facility] ED in July for unexplained jaundice and a bad cough. Had back pain with this cough. This is when worsening anemia was discovered. Cough has now resolved. CT A/P 08/05/23: Referral to reestablish with hepatology and rheumatology pending. Currently scheduled for EGD and EUS in October. Per patient she is chronically jaundiced. This never fully went away since 2019 when this all started. Denies itching of the skin. Urine is dark if she doesn't drink enough water. In the morning it is the darkest. Denies b symptoms. Does have chronic SOB with exertion. Is possibly slightly worse now but not severely. Denies dizziness, CP. Is having some increased weakness and fatigue. Cut[place] this all started when she started letairis for pulmonary HTN. Unknown etiology. Follows with provider at [facility]. Never had liver biopsy that was recommended by hepatology previously completed d/t pandemic and resolution of anemia. Denies melena, hematochezia or hematuria. Denies constipation of diarrhea. Negative FOBT. Denies nausea or vomiting, abdominal pain, bloating or early satiety. Does not smoke or drink alcohol. Denies any family history of cancer or blood disorders. Results for orders placed or performed in visit on 08/13/23 COMPREHENSIVE METABOLIC PANEL Result Value Ref Range BUN 13 6 - 20 mg/dL Creatinine 1.0 0.5 - 1.0 mg/dL Estimated Glomerular Filtration Rate 68 >=60 mL/min Sodium 140 135 - 146 mmol/L Potassium 4.1 3.5 - 5.1 mmol/L Chloride 108 (H) 98 - 107 mmol/L CO2 19 (L) 22 - 32 mmol/L Anion Gap 13 7 - 15 mmol/L Glucose 93 70 - 120 mg/dL Albumin 3.9 3.8 - 5.0 g/dL AST 56 (H) 10 - 35 U/L Alkaline Phosphatase 145 (H) 35 - 130 U/L Bilirubin, Total 10.2 (H) <=1.2 mg/dL Calcium 9.3 8.4 - 10.2 mg/dL Protein 7.3 6.0 - 8.3 g/dL ALT 32 10 - 35 U/L ANEMIA CBC Result Value Ref Range WBC 5.55 4.00 - 10.80 K/uL RBC 3.33 3.85 - 5.15 M/uL HGB 8.9 (L) 12.0 - 15.3 g/dL HCT 30.0 (L) 36.0 - 45.2 % MCV 90.1 81.5 - 97.5 fL MCH 26.7 27.0 - 34.0 pg MCHC 29.7 32.0 - 36.0 g/dL RDW 22.4 11.5 - 15.5 % PLT 72 (L) 140 - 400 K/uL MPV 10.8 6.6 - 11.1 fL DIFFERENTIAL, AUTOMATED Result Value Ref Range WBC 5.55 4.00 - 10.80 K/uL Neutrophils % 54.6 40.0 - 75.0 % Lymphocytes % 33.9 18.0 - 42.0 % Monocytes % 8.8 1.0 - 11.0 % Eosinophils % 2.3 0.0 - 6.0 % Basophils % 0.4 0.0 - 2.0 % Absolute Neutrophils 3.03 1.80 - 7.70 K/uL Absolute Lymphocytes 1.88 1.00 - 4.80 K/ul Absolute Monocytes 0.49 0.00 - 1.10 K/uL Absolute Eosinophils 0.13 0.00 - 0.70 K/uL Absolute Basophils 0.02 0.00 - 0.20 K/uL DIFFERENTIAL, TECHNOLOGIST REVIEW Result Value Ref Range nRBCs Ovalocytes Moderate (A) None Seen RETICULOCYTE PANEL Result Value Ref Range Reticulocyte Percent 4.55 (H) 0.80 - 1.90 % Absolute Reticulocyte 149.2 (H) 31.3 - 100.1 K/uL Immature Reticuloctye Fraction 37.7 (H) 2.5 - 20.6 % Reticulocyte Hemoglobin 25.8 (L) 29.7 - 37.4 pg IRON SCREEN, INCLUDING TIBC Result Value Ref Range Iron 74 33 - 151 ug/dL Iron Binding Capacity 410 250 - 425 ug/dL Transferrin Saturation Percent 18 15 - 55 % FERRITIN Result Value Ref Range Ferritin 25 13 - 150 ng/mL TSH Result Value Ref Range TSH 1.51 0.27 - 4.20 uIU/mL FOLIC ACID Result Value Ref Range Folic Acid 14.0 >4.5 ng/mL VITAMIN B12 Result Value Ref Range Vitamin B12 482 232 - 1,245 pg/mL HISTORY OF PRESENT ILLNESS: Marianne Chand is a 62 year old female with a history as outlined above. Currently here for f/u visit today. Did start a gluten free diet. Is compliant with this. Did take oral iron previously. Stopped it years ago. Had to reschedule liver biopsy d/t sore throat. Still has a nagging cough but sore throat has resolved. Past Medical History: Diagnosis Date Allergic rhinitis Anxiety state ? anxiety attack. Celiac disease Followed by [facility] Environmental exposure 07/06/2019 Chickens, Ducks Pancytopenia (HCC) PHT (pulmonary hypertension) (HCC) 07/06/2019 Suspected on Echocardiogram when Hgb low. 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 Past Surgical History: Procedure Laterality Date D&C AFTER DELIVERY after ectopic, left ovary and tube removed EGD, W/ENDOSCOPIC US 10/16/2023 ESOPHAGOGASTRODUODENOSCOPY (EGD), FLEXIBLE, TRANSORAL, ENDOSCOPIC ULTRASOUND performed by Favian Escalante MD at ENDOSCOPY [facility] LIGATE/CUT OVIDUCT(S) RIGHT HEART CATH W/ O2 SAT AND CO Left 03/03/2020 RIGHT HEART CATH W/ O2 SAT AND CO performed by Eyal Tom MD at [facility] Social History Socioeconomic History Marital status: Spouse [...] use: No Drug use: Never Sexual activity: Not on file Other Topics Concern Not on file Social [...] on file Housing Stability: Not on file Review of patient's allergies indicates: No Known Allergies Current Outpatient Medications Medication Sig Dispense Refill Acetaminophen ER (TYLENOL 8 HOUR ARTHRITIS PAIN) 650 MG TBCR Take 1 Tablet by mouth every 8 hours as needed for Fever. Fluticasone Propionate 50 MCG/ACT Nasal Suspension Administer 2 Sprays into each nostril daily. (Patient not taking: Reported on 08/13/2023) 16 g 3 GENERIC EXTERNAL MEDICATION Balance [...] needed (chest tightness, sob). 18 g 1 Folic Acid 1 MG Oral Tablet Take 1 Tablet by mouth in the morning. (Patient not taking: Reported on10/23/2023) 30 Tablet 2 Sildenafil Citrate 20 MG Oral Tablet (Revatio) Take 1 tablet in the morning, 1 tablet at noon, and 1 tablet before bedtime. Generic for Revatio. 90 Tablet 11 Current Facility-Administered Medications Medication Dose Route Frequency Provider Last Rate Last Admin albuterol sulfate (PROVENTIL) (2.5 MG/3ML) 0.083% inhalation solution 2.5 mg 2.5 mg Nebulizer Q4H PRN Ray Rose DO 2.5 mg at 07/09/19 1459 Albuterol Sulfate (Proventil) (2.5 MG/3ML) 0.083% inhalation solution 2.5 mg 2.5 mg Nebulizer Once PRN aRy Rose DO REVIEW OF SYSTEMS: See HPI - otherwise negative OBJECTIVE: Filed Vitals: 11/06/23 0856 BP: 105/70 Pulse: 86 Resp: 18 Temp: 36.8 C (98.2 F) TempSrc: Tympanic SpO2: 93% Weight: 81.7 kg (180 lb 1.6 oz) Wt Readings from Last 5 Encounters: 11/06/23 81.7 kg (180 lb 1.6 oz) 10/31/23 82.9 kg (182 lb 12 oz) 10/23/23 83.6 kg (184 lb 3.2 oz) 10/10/23 84.8 kg (187 lb) 08/21/23 84.8 kg (187 lb) PHYSICAL EXAM: General Appearance: No acute distress, +scleral icterus Lungs/Thorax: Normal respiratory effort Extremities: +nonpitting BLE edema Skin: +jaundice Neurologic: Normal - Grossly intact LABS: Component Latest Ref Rng 08/21/2023 WBC 4.00 - 10.80 K/uL 7.68 RBC 3.85 - 5.15 M/uL 3.40 HGB 12.0 - 15.3 g/dL 9.1 (L) HCT 36.0 - 45.2 % 32.4 (L) MCV 81.5 - 97.5 fL 95.3 MCH 27.0 - 34.0 pg 26.8 MCHC 32.0 - 36.0 g/dL 28.1 RDW 11.5 - 15.5 % 22.0 PLT 140 - 400 K/uL 111 (L) MPV 6.6 - 11.1 fL 12.0 nRBCs <=0 /100 WBCs 1 (H) Component Latest Ref Rng 08/21/2023 BUN 6 - 20 mg/dL 12 Creatinine 0.5 - 1.0 mg/dL 0.9 Estimated Glomerular Filtration Rate >=60 mL/min 75 Sodium 135 - 146 mmol/L 141 Potassium 3.5 - 5.1 mmol/L 3.5 Chloride 98 - 107 mmol/L 107 CO2 22 - 32 mmol/L 19 (L) Anion Gap 7 - 15 mmol/L 15 Glucose 70 - 120 mg/dL 89 Albumin 3.8 - 5.0 g/dL 4.2 AST 10 - 35 U/L 36 (H) Alkaline Phosphatase 35 - 130 U/L 130 Bilirubin, Total <=1.2 mg/dL 8.3 (H) Calcium 8.4 - 10.2 mg/dL 8.9 Protein 6.0 - 8.3 g/dL 7.2 Protein 7.2 ALT 10 - 35 U/L 35 Component Latest [facility] 08/21/2023 Iron 33 - 151 ug/dL 49 Iron Binding Capacity 250 - 425 ug/dL 396 Transferrin Saturation Percent 15 - 55 % 12 (L) Component Latest [facility] 08/21/2023 Ferritin 13 - 150 ng/mL 18 Component Latest [facility] 08/21/2023 Haptoglobin 30 - 200 mg/dL 14 (L) Component Latest [facility] 08/21/2023 Reticulocyte Percent 0.80 - 1.90 % 5.77 (H) Absolute Reticulocyte 31.3 - 100.1 K/uL 196.2 (H) Immature Reticuloctye Fraction 2.5 - 20.6 % 34.6 (H) Reticulocyte Hemoglobin 29.7 - 37.4 pg 24.8 (L) Component Latest [facility] 08/21/2023 LD <=250 U/L 176 Cold Hemagglutinins SEE BELOW Comment: Cold Hemagglutinins None Detected Direct Alexi Negative Component Latest [facility] 08/21/2023 Protein 6.0 - 8.3 g/dL 7.2 Protein 7.2 Alpha-1 Globulin 0.10 - 0.30 g/dL 0.31 (H) Alpha-2 Globulin 0.60 - 1.00 g/dL 0.61 Beta-Globulin 0.80 - 1.30 g/dL 0.91 Gamma-Globulin 0.70 - 1.70 g/dL 2.13 (H) Normal/Abnormal Normal Normal Albumin 3.30 - 4.40 g/dL 3.24 (L) Electrophoresis Interpretation No paraprotein detected. There is a polyclonal increase in the gammafraction. This finding may be seen in association with chronic inflammation, infection, chronic liver disease or collagen disorders. Component Latest [facility] 08/21/2023 Archbold Free Light Chains, Serum 3.30 - 19.40 mg/L 37.80 (H) Lambda Free Light Chains, Serum 5.71 - 26.30 mg/L 39.05 (H) Archbold Lambda Free Light Chains Ratio 0.26 - 1.65 0.97 Component Latest [facility] Rng 08/21/2023 IgA 70 - 400 mg/dL 505 (H) IgG 700 - 1,600 mg/dL 1,702 (H) IgM 40 - 230 mg/dL 462 (H) Component Latest Ref Rng 08/21/2023 Bilirubin, Direct 0.0 - 0.3 mg/dL 0.7 (H) Schistocytes, Technologist Review None Seen None Seen No discrete flow cytometric evidence of PNH. IMAGING: MRI Abdomen 09/27/23: IMPRESSION: Hepatic cirrhosis. No obvious suspicious hepatic mass on this noncontrast study. Correlate clinically for chronic liver disease and HCC surveillance recommended. Mild splenomegaly. Heterogeneous patchy marrow signal of the visualized spine that also drops on out of phase imaging.Findings favored to represent red marrow reconversion from anemia. Correlate clinically for other etiologies such as multiple myeloma. IMPRESSION/PLAN: Pancytopenia Iron deficiency anemia Liver cirrhosis and splenomegaly Indirect hyperbilirubinemia Celiac Disease Pulmonary HTN Lab results reviewed with patient: Hgb stable at 9.1 Platelet count stable at 111K Total bilirubin remains elevated at 8.3 with direct bilirubin of 0.7 Iron deficiency present with ferritin 18 and TSAT 12% Haptoglobin decreased at 14, elevated retic at 196.2 but normal LDH No schistocytes detected Negative direct alexi, negative for cold hemagglutinins, PNH negative Myeloma panel unremarkable Re-established with Hepatology. Abdominal MRI showing cirrhosis and splenomegaly. Likely cause of stable and mild thrombocytopenia. Concern for autoimmune liver disease. Currently scheduled for liverbiopsy on 12/11/23. Reinforced to patient importance of attending this appointment. Discussed with patient option of moving forward with IV iron therapy but opted for oral iron. Prescription placed for Vitron C one tablet daily. Will repeat CBCd, iron screen and ferritin in one month. Reinforced to patient importance of following strict gluten free diet. Unclear if patient is hemolyzing. Testing is inconclusive. Patient denies any known family history of anemia or elevated bilirubin/liver problems so unlikely to be congenital. Would like to request aperipheral smear to assess for signs of end stage liver disease. Unclear if any of this could be related to Letairis. Patient feels that many of these problems started after she started Letairis. Has upcoming appointment with pulmonary in [place]. She is going todiscuss with them possibly stopping the drug. RTC in three months with physician with cbc/diff, cmp, iron screen and ferritin WINSTON Gomez documented in this encounter Nursing Notes * Jenna Robertson LPN - 11/06/2023 8:58 AM EST Patient identifed by name and birthdate Do you have any concerns about pain management for today's visit? No Living Will or Advance Directive for Health Care as noted on the problem list. [facility] is a way you can talk to your provider on line through e-mail. Would you like to sign up? I can activate it for you? NO Filed Vitals: 11/06/23 0856 BP: 105/70 Pulse: 86 Resp: 18 Temp: 36.8 C (98.2 F) TempSrc: Tympanic SpO2: 93% Weight: 81.7 kg (180 lb 1.6 oz) Patient was instructed to not get up on the exam table/exam chair until directed and assisted by their provider; patient is to remain seated in the chair/ wheelchair/ exam table/ exam chair for fall prevention and safety reasons. Patient is aware to have assistance to step down off exam table/exam chair with personnel. Patient voiced full comprehension of instructions. documented in this encounter Plan of Treatment Upcoming Encounters Date Type Department Care Team (Latest Contact Info) Description 4 9:00 AM EST Office Visit Rheumatology [place] [id number] [place] [address] Maico Carrillo CRNP [address] [place] [address] 4 11:00 AM EDT Laboratory Laboratory [address] [place] [phone] [address] [place] [address] 4 8:00 AM EDT Hospital Encounter ENDO [facility], Endoscopy Room [facility] [address] [place], [place] [phone] aFvian Escalante MD [address] [place] [address] 4 8:00 AM EDT - 4 9:00 AM EDT Surgery ENDO [facility], Endoscopy Room [facility] [address] [place] [phone] Favian Escalante MD [address] [place] [address] ESOPHAGOGASTRODUODENOSCOPY (EGD), FLEXIBLE, TRANSORAL, ENDOSCOPIC ULTRASOUND 4 7:15 AM EDT Cardiac Studies Cardiac Studies, [facility] [address] [place] [address] 4 8:30 AM EDT PulmDiagnostic Pulmonary Function Lab, [facility] [address] [place] [address] [place], [address] [place] [address] 4 11:40 AM EDT Office Visit Hepatology, [facility] [address] [place] [address] Evangelina Dorado DO [address] [place] [address] 4 11:00 AM EDT Laboratory Laboratory [address] [place] [address] [place], Lab [address] [place] [address] 4 1:00 PM EDT Office Visit [facility] [address] [place] [address] Sarah Galaviz DO [address] [place] [address] 4 2:00 PM EDT Office Visit Hematology/Onco logy [place] [address] [place] [address] Anthony Ritchie MD [address] [place] [address] Scheduled Orders Name Type Priority Associated Diagnoses Orde r Schedule CBC WITH WBC DIFFERENTIAL Lab STAT Pancytopenia (HCC) Iron deficiency anemia, unspecified iron deficiency anemia type Every Month for 6 Occurrences starting 11/09/2023 until 05/07/2024 IRON SCREEN, INCLUDING TIBC Lab STAT Pancytopenia (HCC) Iron deficiency anemia, unspecified iron deficiency anemia type Every Month for 6 Occurrences starting 11/09/2023 until 05/07/2024 FERRITIN Lab STAT Pancytopenia (HCC) Iron deficiency anemia, unspecified iron deficiency anemia type Every Month for 6 Occurrences starting 11/09/2023 until 05/07/2024 COMPREHENSIVE METABOLIC PANEL Lab STAT Pancytopenia (HCC) Iron deficiency anemia, unspecified iron deficiency anemia type Hepatic cirrhosis, unspecified hepatic cirrhosis type, unspecified whether ascites present (HCC) Indirect hyperbilirubinemia Celiac disease PHT (pulmonary hypertension) (HCC) Expected: 02/07/2024 (Approximate), Expires: 11/09/2024 Scheduled Procedures Name Priority Associated Diagnoses Date/Ti [...] 10/15/2019 LUNG CANCER SCREENING - USE SMARTSET [id number] Completed 07/09/2019 Zoster Vaccines Completed 07/10/2020, 04/14/2020 Influenza Vaccine (FLU shot) Completed , 07/10/2020, 10/15/2019, Additional history exists GARDASIL-HPV IMMUNIZATION SERIES Aged Out No longer eligible based on patient's age to complete this topic MENINGOCOCCAL (MENACTRA/MENVEO) Aged Out No longer eligible based on patient's age to complete this topic documented as of this encounter Medical Devices Not on filedocumented as of this encounter Results * FERRITIN (11/06/2023 10:08 AM EST) Ferritin 21 13 - 150 ng/mL 11/06/2023 9:22 PM EST LABORATORY C Comment:Postmenopausal women have higher ferritin levels than pre-menopausal women. The above reference interval is based on pre-menopausal women. Blood Venous blood specimen / Unknown Venipuncture / Unknown 11/06/2023 10:08 AM EST 11/06/2023 10:08 AM EST Tammy MONTERO LAB BLOOD ORDER [facility] [address], [place] [id number] * IRON SCREEN, INCLUDING TIBC (11/06/2023 10:08 AM EST) Iron 66 33 - 151 ug/dL 11/06/2023 8:32 PM EST [facility] Iron Binding Capacity 403 250 - 425 ug/dL 11/06/2023 8:32 PM EST [facility] Transferrin Saturation Percent 16 15 - 55 % 11/06/2023 8:32 PM EST [facility] Blood Venous blood specimen / Unknown Venipuncture / Unknown 11/06/2023 10:08 AM EST 11/06/2023 10:08 AM EST Tammy Hammond WINSTON LAB BLOOD ORDER [facility] Performing Organization Address [facility] Co de Phone Number LABORATORY [facility] [address] [place] [address] documented in this encounter Visit Diagnoses Diagnosis Pancytopenia (HCC)- Primary Other pancytopenia Iron deficiency anemia, unspecified iron deficiency anemia type Hepatic cirrhosis, unspecified hepatic cirrhosis type, unspecified whether ascites present (HCC) Indirect hyperbilirubinemia Disorders of bilirubin excretion Celiac disease PHT (pulmonary hypertension) (HCC) Other chronic pulmonary heart diseases Hepatic cirrhosis, unspecified hepatic cirrhosis type, unspecified whether ascites present (HCC) Anemia, unspecified type documented in this encounter Care Teams Farmworker Fruit Relationship Specialty Start Date End Date Sarah Galaviz DO [address] [facility] [place] [address] PCP - General Family Medicine 06/30/19 documented as of this encounter
--- OUTSIDE RECORDS SUMMARY | 2023-12-10 20:25 | External Medical Summary ---
Author Name Unknown Address Unknown Organization [id number]:[facility] [place] [address] Laboratory Report Ordering Provider Test Date Status ALEA MEJIAS 11/06/2023 10:08:29 Final Observation Date Value Abnormality Reference (Units ) Status SYNC LEUKOCYTES IN BLOOD BY AUTOMATED COUNT 11/06/2023 10:08:29 3.82 Below low normal 4.00-10.80 (K/uL) Final Segs 11/06/2023 10:08:29 57.3 40.0-75.0 (%) Final Lymphs % 11/06/2023 10:08:29 30.9 18.0-42.0 (%) Final Monos 11/06/2023 10:08:29 8.9 1.0-11.0 (%) Final Eosinophils 11/06/2023 10:08:29 2.4 0.0-6.0 (%) Final Basos 11/06/2023 10:08:29 0.5 0.0-2.0 (%) Final Absolute Segs 11/06/2023 10:08:29 2.19 1.80-7.70 (K/uL) Final Lymphs, absolute 11/06/2023 10:08:29 1.18 1.00-4.80 (K/ul) Final Monos, Abs 11/06/2023 10:08:29 0.34 0.00-1.10 (K/uL) Final Eos, Abs 11/06/2023 10:08:29 0.09 0.00-0.70 (K/uL) Final Basos, Abs 11/06/2023 10:08:29 0.02 0.00-0.20 (K/uL) Final Performing Location [facility] [place] [address]
--- OUTSIDE RECORDS SUMMARY | 2023-12-10 20:25 | External Medical Summary | Summary of Care ---
Author Name Unknown Organization [facility] Address [address] [place] [address] Phone [phone] Care Team Providers Care Tin Dipper Name Role Phone Sarah Galaviz DO Primary Care Provider [phone] Reason for Visit * Reason Onset Date Comments FYI 10/30/2023 LGI Encounter Details Date Type Department Care Team (Late st Contact Info) Description 10/30/2023 Telephone Family Practice [facility] [address] [place] [address] Sarah Galaviz DO [address] [place] [address] FYI (LGI) Allergies No known active allergiesdocumented as of this encounter (statuses as of 10/30/2023) Medications Medication Sig Dispensed Refills Start Date [...] as of this encounter (statuses as of 10/30/2023) Active Problems Problem Noted Date Diagnosed Date Unspecified cirrhosis of liver 04/14/2020 Thrombocytopenia 10/15/2019 GENI positive 07/07/2019 PHT (pulmonary hypertension) 07/06/2019 Overview: Suspected on Echocardiogram when Hgb low. 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 Secondhand smoke exposure 07/06/2019 Environmental exposure 07/06/2019 Overview: Chickens, Ducks Pancytopenia documented as of this encounter (statuses as of 10/30/2023) Immunizations Name Administration Dates Next Due Pneumococcal [...] encounter Miscellaneous Notes * Telephone Encounter - Sarah Galaviz DO - 10/30/2023 1:42 PM EST Noted, currently following w/GI for cirrhosis Will review at next OV * Addendum Note - Kishore Gerard LPN - 10/30/2023 12:35 PM ESTAddended by: KISHORE GERARD on: 10/30/2023 12:35 PM Modules accepted: Orders * Telephone Encounter - Kishore Gerard LPN - 10/30/2023 12:35 PM EST Through advanced analysis/trending of this patients Complete Blood Counts (CBC), they have been identified to have a positive LGI flag and at a higher risk for hidden bleeding in the intestine dueto several conditions such as ulcers, colon polyps, harmless conditions, or even colon cancer. This advanced analysis estimates the patient's risk of these kinds of conditions. It only indicatesthat the patient's chances to have one of these conditions are higher compared to most people. It does not indicate that the patient has any of these conditions but is highly recommended the patient have a colonoscopy for further evaluation. Patients with a positive LGI flag have a 40% chance (six times more likely) of having a serious GI pathology finding versus unflagged patients. I have contacted the patient regarding scheduling a colonoscopy. Colonoscopy outreach: Patient declined, sent to PCP for review Thank you. Kishore Gerard LPN * Telephone Encounter - Kishore Gerard LPN - 10/30/2023 12:24 PM EST Through advanced analysis/trending of this patients Complete Blood Counts (CBC), they have been identified to have a positive LGI flag and at a higher risk for hidden bleeding in the intestine dueto several conditions such as ulcers, colon polyps, harmless conditions, or even colon cancer. This advanced analysis estimates the patient's risk of these kinds of conditions. It only indicatesthat the patient's chances to have one of these conditions are higher compared to most people. It does not indicate that the patient has any of these conditions but is highly recommended the patient have a colonoscopy for further evaluation. Patients with a positive LGI flag have a 40% chance (six times more likely) of having a serious GI pathology finding versus unflagged patients. I have contacted the patient regarding scheduling a colonoscopy. Colonoscopy outreach: Left message Colon was ordered 08/13/23 Thank you. Kishore Gerard LPN documented in this encounter Plan of Treatment Upcoming Encounters Date Type Department Care Team (Latest Contact Info) Description 10/31/2023 12:20 PM EST Office Visit Pulmonary Medicine, [facility] [address] [facility] [place] [address] Ray Rose DO [address] [facility] [phone] 11/06/2023 9:00 AM EST Office Visit Hematology/Oncol ogy [facility] [address] [place], [place] [address] Tammy Hammond CRNP [address] [place] [address] 11/13/2023 9:00 AM EST Office Visit Rheumatology [facility] [address] [facility] [place] [address] Maico Carrillo CRNP [address] [facility] [place], [place] [address] 12/11/2023 8:00 AM EDT Hospital Encounter ENDO O[facility], Endoscopy Room [facility] [address] [place] [phone] Favian Escalante MD [address] [place] [address] 12/11/2023 8:00 AM EDT - 12/11/2023 9:00 AM EDT Surgery ENDO [facility], Endoscopy Room [facility] [address] [place] [phone] Favian Escalante MD [address] [place] [address] ESOPHAGOGASTRODUODENOSCOPY (EGD), FLEXIBLE, TRANSORAL, ENDOSCOPIC ULTRASOUND 01/23/2024 11:40 AM EDT Office Visit Hepatology, [facility] [address] [place] [address] Evangelina Dorado, DO [address] [place] [address] 02/11/2024 1:00 PM EDT Office Visit Family Practice [facility] [address] [place] [address] Sarah Galaviz, DO [address] [place] [address] Scheduled Procedures Name Priority Associated Diagnoses Date/Ti [...] 10/15/2019 LUNG CANCER SCREENING - USE SMARTSET 69107 Completed 07/09/2019 Zoster Vaccines Completed 07/10/2020, 04/14/2020 [...] filedocumented as of this encounter Care Teams Tin Dipper Relationship Specialty Start Date End Date Sarah Galaviz DO [address] [place] [address] PCP - General Family Medicine 06/30/19 documented as of this encounter
--- OUTSIDE RECORDS SUMMARY | 2023-12-10 20:25 | External Medical Summary | Summary of Care ---
Author Name Unknown Organization [facility] Address [address] [facility] [place] [address] Phone [phone] Care Team Providers Care County Records Management Officer Name Role Phone Sarah Galaviz DO Primary Care Provider [phone] Reason for Visit * Reason Onset Date Comments Scheduling 11/18/2023 WATCHPAT Encounter Details Date Type Department Care Team (Late st Contact Info) Description 11/18/2023 Telephone Sleep Lab [facility] [address] [place] [address] [facility] Sleep Med Home Study [facility] 132 [facility] [place] [address] Scheduling (WATCHPAT) Allergies No known active allergiesdocumented [...] encounter Miscellaneous Notes * Telephone Encounter - Ana Davidson OSA - 11/18/2023 11:24 AM EST WATCHPAT Ordered by Mumtaz Armenta MD documented in this encounter Plan of Treatment Upcoming Encounters Date Type Department Care Team (Latest Contact Info) Description 4 11:00 AM EDT Laboratory Laboratory [address] [place] [phone] [address] [place] [address] 4 8:00 AM EDT Hospital Encounter ENDO [facility], Endoscopy Room [facility] [address] [facility] [place] Favian Escalante MD [address] [place] [address] 4 8:00 AM EDT - 4 9:00 AM EDT Surgery ENDO O[facility]C, Endoscopy Room [facility] [address] [place] [address] Favian Escalante MD [address] [place] [address] ESOPHAGOGASTRODUODENOSCOPY (EGD), FLEXIBLE, TRANSORAL, ENDOSCOPIC ULTRASOUND 4 7:15 AM EDT Cardiac Studies Cardiac Studies, [facility] [address] [place] [address] 4 8:30 AM EDT PulmDiagnostic Pulmonary Function Lab, [facility] [address] [place] [address] [address], P[address] [place] [address] 4 11:40 AM EDT Office Visit Hepatology, [facility] [address] [place] [address] Evangelina Dorado DO [address] [place] [address] 4 11:00 AM EDT Laboratory Laboratory [address] [place] [phone] [place], Lab [address] [place] [address] 4 1:00 PM EDT Office Visit Family Practice [facility] [address] [place] [address] Sarah Galaviz, [address] [place] [address] 4 2:00 PM EDT Office Visit Hematology/Onco logy [facility] [place] [address] [place] [address] Anthony Ritchie MD [address] [place] [address] Scheduled Procedures Name Priority Associated Diagnoses Date/Ti [...] 10/15/2019 LUNG CANCER SCREENING - USE SMARTSET [address] Completed 07/09/2019 Zoster Vaccines Completed 07/10/2020, 04/14/2020 [...] filedocumented as of this encounter Care Teams County Records Management Officer Relationship Specialty Start Date End Date Sarah Galaviz DO 132 [facility] [place] [address] PCP - General Family Medicine 06/30/19 documented as of this encounter
--- OUTSIDE RECORDS SUMMARY | 2023-12-10 20:25 | External Medical Summary | Summary of Care ---
Author Name Unknown Organization [facility] Address [address] [address] Phone [phone] Care Team Providers Care Logistics Supply Officer Name Role Phone Sarah Galaviz DO Primary Care Provider [phone] Reason for Visit * Reason Onset Date Comments FYI 10/30/2023 LGI Encounter Details Date Type Department Care Team (Late st Contact Info) Description 10/30/[address] [facility] [address] [place] [address] Sarah Galaviz DO [address] [place] [address] FYI (LGI) Allergies No known active allergiesdocumented [...] encounter Miscellaneous Notes * Addendum Note - Kishore Gerard LPN [...] 12:20 PM EST Office Visit Pulmonary Medicine, [facility] 132 [facility] [place] [address] Ray Rose DO [address] [place] [address] 11/06/2023 9:00 AM EST Office Visit Hematology/Oncol [facility] [place] [facility] [address] Tammy Hammond CRNP [address] [place] [address] 11/13/2023 9:00 AM EST Office Visit Rheumatology [facility] [address] [facility] [place] [address] Maico Carrillo CRNP [address] [facility] [place] [address] 12/11/2023 8:00 AM EDT Hospital Encounter ENDO OSS[facility], Endoscopy Room [facility] [address] [place] [phone] Favian Escalante MD [address] [place] [address] 12/11/2023 8:00 AM EDT - 12/11/2023 9:00 AM EDT Surgery ENDO O[facility], Endoscopy Room [facility] [address] [place] [address] Favian Escalante MD [address] [place] [address] ESOPHAGOGASTRODUODENOSCOPY (EGD), FLEXIBLE, TRANSORAL, ENDOSCOPIC ULTRASOUND 01/23/2024 11:40 AM EDT Office Visit Hepatology, [facility] [address] [place] [address] Evangelina Dorado, DO [address] [place] [address] 02/11/2024 1:00 PM EDT Office Visit Family Practice [facility] [address] [place] [address] Sarah Galaviz, DO [address] [place] [address] Scheduled Procedures Name Priority Associated Diagnoses Date/Ti [...] 10/15/2019 LUNG CANCER SCREENING - USE SMARTSET [id number] Completed 07/09/2019 Zoster Vaccines Completed 07/10/2020, 04/14/2020 [...] filedocumented as of this encounter Care Teams Logistics Supply Officer Relationship Specialty Start Date End Date Sarah Galaviz DO [address] [place] [address] PCP - General Family Medicine 06/30/19 documented as of this encounter
--- OUTSIDE RECORDS SUMMARY | 2023-12-10 20:25 | External Medical Summary ---
Author Name Unknown Address Unknown Organization K01:[facility] [address] [place] [address] Laboratory Report Ordering Provider Test Date Status ALEA MEJIAS 11/06/2023 10:08:29 Final Observation Date Value Abnormality Reference (Units ) Status Iron 11/06/2023 10:08:29 66 33-151 (ug /dL) Final Iron-binding capacity 11/06/2023 10:08:29 403 250-425 (ug/dL) Final Transferrin Sat % 11/06/2023 10:08:29 16 15 -55 (%) Final Performing Location [facility] - [address] [place] [address]
--- OUTSIDE RECORDS SUMMARY | 2023-12-10 20:25 | External Medical Summary ---
Author Name Unknown Address Unknown Organization K09:[facility] [place] [address] Laboratory Report Ordering Provider Test Date Status ALEA MEJIAS 11/06/2023 10:08:29 Final Observation Date Value Abnormality Reference (Units ) Status WBC, Total 11/06/2023 10:08:29 3.82 Below low normal 4. 00-10.80 (K/uL) Final RBC 11/06/2023 10:08:29 3.46 3.85-5.15 (M/uL) Final Hemoglobin 11/06/2023 10:08:29 8.9 Below low normal 12 .0-15.3 (g/dL) Final HCT 11/06/2023 10:08:29 30.7 Below low normal 36. 0-45.2 (%) Final MCV 11/06/2023 10:08:29 88.7 81.5-97.5 (fL) Final MCH 11/06/2023 10:08:29 25.7 27.0-34.0 (pg) Final MCHC 11/06/2023 10:08:29 29.0 32.0-36.0 (g/dL) Final RDW 11/06/2023 10:08:29 23.9 11.5-15.5 (%) Final Platelets 11/06/2023 10:08:29 122 Below low normal 140 -400 (K/uL) Final MPV 11/06/2023 10:08:29 10.6 6.6-11.1 ( fL) Final Performing Location [facility] [place] [address]
--- OUTSIDE RECORDS SUMMARY | 2023-12-10 20:25 | External Medical Summary | Summary of Care ---
Author Name Unknown Organization [facility] Address [address] [address] Phone [phone] Care Team Providers Care Tar Kettle Runner Name Role Phone Sarah Galaviz DO Primary Care Provider [phone] Reason for Referral * Evaluate & Treat - Unlimited Visits (Within 10 days (routine)) - Pending Review Specialty Diagnoses / Procedures Referred By Contact Referred To Contact GI NUTRITION/IM / Gastroenterology Diagnoses Celiac disease Evangelina Dorado DO [address] [place] [address] Referral ID Status Reason Start Date Expiration Date Visits Requested Visits Authorized [id number] Pending Review Specialty Services Required 10/24/[phone] Question Answer Referral Priority Within 10 days (routine) Where should this appointment be scheduled? [facility] For what condition is the patient being seen? Other Comments Celiac disease. Educate on gluten free diet. Reason for Visit * Reason Onset Date Comments Test Results 10/24/2023 Encounter Details Date Type Department Care Team (Late st Contact Info) Description 10/24/2023 Telephone Hepatology, [facility] [address] [place] [address] Evangelina Dorado DO [address] [place] [address] Test Results Allergies No known active allergiesdocumented as of [...] encounter Miscellaneous Notes * Telephone Encounter - Mily Waterman RN - 10/24/2023 3:00 PM EST Attempted to contact pt. No answer. Left message requesting return call. * Telephone Encounter - Evangelina Dorado DO [...] PM EST Office Visit Pulmonary Medicine, [facility] [address] [place] [address] Ray Rose DO [address] [place] [address] 11/06/2023 9:00 AM EST Office Visit Hematology[facility]col [facility] [place] [address] [place] [address] Tammy Hammond CRNP [address] [place] [address] 11/13/2023 9:00 AM EST Office Visit Rheumatology [address] [place] [address] Maico Carrillo CRNP [facility] [place] [address] 12/11/2023 8:00 AM EDT Hospital Encounter ENDO OSSC, Endoscopy Room [facility] [address] [place] [phone] Favian Escalante MD [address] [place] [address] 12/11/2023 8:00 AM EDT - 12/11/2023 9:00 AM EDT Surgery ENDO O[facility], Endoscopy Room [facility] [address] [place] [address] Favian Escalante MD [address] [place] [address] ESOPHAGOGASTRODUODENOSCOPY (EGD), FLEXIBLE, TRANSORAL, ENDOSCOPIC ULTRASOUND 01/23/2024 11:40 AM EDT Office Visit Hepatology, [facility] [address] [place] [address] Evangelina Dorado, DO [address] [place] [address] 02/11/2024 1:00 PM EDT Office Visit Family Practice [facility] [address] [place] [address] Sarah Galaviz, DO [address] [place] [address] Scheduled Procedures Name Priority Associated Diagnoses Date/Ti [...] 10/15/2019 LUNG CANCER SCREENING - USE SMARTSET [address] Completed 07/09/2019 Zoster Vaccines Completed 07/10/2020, 04/14/2020 [...] type documented in this encounter Care Teams Tar Kettle Runner Relationship Specialty Start Date End Date Sarah Galaviz DO [address] [place] [address] PCP - General Family Medicine 06/30/19 documented as of this encounter
--- OUTSIDE RECORDS SUMMARY | 2023-12-10 20:25 | External Medical Summary | Summary of Care ---
Author Name Unknown Organization [facility] Address [address] [place] [address] Phone [phone] Care Team Providers Care Cabin Man Name Role Phone Sarah Galaviz DO Primary Care Provider [phone] Reason for Visit * Reason Onset Date Comments Appointment 10/31/2023 Encounter Details Date Type Department Care Team (Late st Contact Info) Description 10/31/2023 Telephone Pulmonary Medicine, [place] [address] [place] [phone] Ray Rose DO [address] [place], [place] [address] Appointment Allergies No known active allergiesdocumented as of this encounter (statuses as of 10/31/2023) Medications Medication Sig Dispensed Refills Start Date [...] as of this encounter (statuses as of 10/31/2023) Active Problems Problem Noted Date Diagnosed Date Nocturnal hypoxemia 10/31/2023 Sleep-disordered breathing 10/31/2023 Celiac disease 10/30/2023 Unspecified cirrhosis of liver 04/14/2020 Thrombocytopenia 10/15/2019 GENI positive 07/07/2019 PHT (pulmonary hypertension) 07/06/2019 Overview: Suspected on Echocardiogram when Hgb low. 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 Rose. Pt is on a recall. 1 hour Telemedicine visit in Pulmonary hypertension clinc ([place] schedule). Echo and PFTs (full study w/walk) scheduled 01/08/24. documented in this encounter Plan of Treatment Upcoming Encounters Date Type Department Care Team (Latest Contact Info) Description 4 9:00 AM EST Office Visit Hematology/Onco logy [place] [facility] [place] [address] [facility] [place] [address] Tammy Hammond CRNP [address] [place] [address] 4 9:00 AM EST Office Visit Rheumatology [facility] [address] [facility] [place] [address] Maico Carrillo CRNP [address] [facility] [place] [address] 4 8:00 AM EDT Hospital Encounter ENDO [facility], Endoscopy Room [facility] [address] [place] [phone] Favian Escalante MD [address] [place] [address] 4 8:00 AM EDT - 4 9:00 AM EDT Surgery ENDO [facility], Endoscopy Room [facility] [address] [place] [phone] Favian Escalante MD [address] [place] [address] ESOPHAGOGASTRODUODENOSCOPY (EGD), FLEXIBLE, TRANSORAL, ENDOSCOPIC ULTRASOUND 4 7:15 AM EDT Cardiac Studies Cardiac Studies, [facility] [address] [place] [address] 4 8:30 AM EDT PulmDiagnostic Pulmonary Function Lab, [facility] [address] [place] [address] West, [address] [place] [address] 4 11:40 AM EDT Office Visit Hepatology, [facility] [address] [place] [address] Evangelina Dorado DO [address] [place] [address] 1:00 PM EDT Office Visit [facility] [address] [place] [address] Sarah Galaviz, [address] [place] [address] Scheduled Procedures Name Priority Associated Diagnoses Date/Ti [...] 10/15/2019 LUNG CANCER SCREENING - USE SMARTSET [id number] Completed 07/09/2019 Zoster Vaccines Completed 07/10/2020, 04/14/2020 [...] filedocumented as of this encounter Care Teams Cabin Man Relationship Specialty Start Date End Date Sarah Galaviz DO [address] [place] [address] PCP - General Family Medicine 06/30/19 documented as of this encounter
--- OUTSIDE RECORDS SUMMARY | 2023-12-10 20:25 | External Medical Summary | Summary of Care ---
Author Name Unknown Organization [facility] Address [address] [facility] [place] [address] Phone [phone] Care Team Providers Care Fuel Truck Driver Name Role Phone Sarah Galaviz DO Primary Care Provider [phone] Reason for Visit * Reason Comments Outpatient Testing Encounter Details Date Type Department Care Team (Late st Contact Info) Description 11/06/2023 10:10 AM EST Laboratory Laboratory [facility] [place] [address] [place] [address] [facility] [address] [place] [address] Pancytopenia (HCC) Allergies No known active allergiesdocumented as of this encounter (statuses as of 11/06/2023) Medications Medication Sig Dispensed Refills Start Date [...] as of this encounter (statuses as of 11/06/2023) Active Problems Problem Noted Date Diagnosed Date Nocturnal hypoxemia 10/31/2023 Sleep-disordered breathing 10/31/2023 Celiac disease 10/30/2023 Unspecified cirrhosis of liver 04/14/2020 Thrombocytopenia 10/15/2019 GENI positive 07/07/2019 PHT (pulmonary hypertension) 07/06/2019 Overview: Suspected on Echocardiogram when Hgb low. 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 Secondhand smoke exposure 07/06/2019 Environmental exposure 07/06/2019 Overview: Chickens, Ducks Pancytopenia documented as of this encounter (statuses as of 11/06/2023) Immunizations Name Administration Dates Next Due Pneumococcal [...] 4 9:00 AM EST Office Visit Rheumatology [place] [id number] [employer] [place], [place] [address] Maico Carrillo CRNP [facility] [place] [address] 4 11:00 AM EDT Laboratory Laboratory [address] [place] [phone] [address] [place] [address] 4 8:00 AM EDT Hospital Encounter ENDO [facility], Endoscopy Room [facility] [address] [place] [address] Favian Escalante MD [address] [place] [address] 4 8:00 AM EDT - 4 9:00 AM EDT Surgery ENDO [facility], Endoscopy Room [facility] [address] [place] [phone] Favian Escalante MD [address] [place] [address] ESOPHAGOGASTRODUODENOSCOPY (EGD), FLEXIBLE, TRANSORAL, ENDOSCOPIC ULTRASOUND 4 7:15 AM EDT Cardiac Studies Cardiac Studies, [facility] [address] [place] [address] 4 8:30 AM EDT PulmDiagnostic Pulmonary Function Lab, [facility] [address] [place] [address] [address], [address] [place] [address] 4 11:40 AM EDT Office Visit Hepatology, [facility] [address] [place] [address] Evangelina Dorado DO [address] [place] [address] 4 11:00 AM EDT Laboratory Laboratory [address] [place] [phone] [place], [address] [place] [address] 4 1:00 PM EDT Office Visit Family Practice [facility] [address] [place] [address] Sarah Galaviz DO [address] [place] [address] 2:00 PM EDT Office Visit Hematology/Onco logy Elma Francois [place] [address] [place] [phone] Anthony Ritchie MD [address] [place] [address] Pending Results Name Type Priority Associated Diagnoses Date /Time CBC WITH WBC DIFFERENTIAL Lab Routine Pancytopenia (HCC) 11/06/2023 10:08 AM EST IRON SCREEN, INCLUDING TIBC Lab Routine Pancytopenia (HCC) 11/06/2023 10:08 AM EST FERRITIN Lab Routine Pancytopenia (HCC) 11/06/2023 10:08 AM EST CBC Lab Routine Pancytopenia (HCC) 11/06/2023 10:08 AM EST DIFFERENTIAL, AUTOMATED Lab Routine Pancytopenia (HCC) 11/06/2023 10:08 AM EST Scheduled Procedures Name Priority Associated [...] 3-dose series) 2022 COVID-19 Vaccine (1 - 24 season) 2023 Depression Screening 08/13/2024 08/13/2023 Lipid Panel 10/19/2024 10/19/2019, 06/17, 11/10/2010, Additional history exists Diabetes Screening 10/23/2026 10/23/2023, 1 10/22/2022, 08/13/2023, Additional history exists DTaP,Tdap,and Td Vaccines (2 - Td or Tdap) 10/15/2029 10/15/2019 LUNG CANCER SCREENING - USE SMARTSET [id number] Completed 07/09/2019 Zoster Vaccines Completed 07/10/2020, 04/14/2020 [...] Visit Diagnoses Diagnosis Pancytopenia (HCC) Other pancytopenia Hepatic cirrhosis, unspecified hepatic cirrhosis type, unspecified whether ascites present (HCC) Anemia, unspecified type documented in this encounter Care Teams Fuel Truck Driver Relationship Specialty Start Date End Date Sarah Galaviz DO [address] [place] [address] PCP - General Family Medicine 06/30/19 documented as of this encounter
--- OUTSIDE RECORDS SUMMARY | 2023-12-10 20:25 | External Medical Summary | Summary of Care ---
Author Name Unknown Organization [facility] Address [address] [facility] [place] [address] Phone [phone] Care Team Providers Care Rn Surgery Name Role Phone Sarah Galaviz DO Primary Care Provider [phone] Reason for Visit * Reason Comments Weight Management The pt stated she is interested in seeing a Dietitian today. * Evaluate & Treat - Unlimited Visits (Within 10 days (routine)) - Pending Review Specialty Diagnoses / Procedures Referred By Contact Referred To Contact GI NUTRITION/IM / Gastroenterology Diagnoses Celiac disease Evangelina Dorado DO [address] [place] [address] Referral ID Status Reason Start Date Expiration Date Visits Requested Visits Authorized [id number] Pending Review Specialty Services Required 10/24/[phone] Encounter Details Date Type Department Care Team (Latest Contact Info) Description 11/14/2023 8:40 AM EST Nutrition Services Nutrition & Weight Management, [facility] [address] [place] [address] Amy Salgado RDN [address] [place] [address] Celiac disease*; Cirrhosis of liver without ascites, unspecified hepatic cirrhosis type (HCC); Overweight (BMI 25.0-29.9) Allergies No known active allergiesdocumented as of this encounter (statuses as of 11/14/2023) Medications Medication Sig Dispensed Refills Start Date [...] as of this encounter (statuses as of 11/14/2023) Active Problems Problem Noted Date Diagnosed Date Nocturnal hypoxemia 10/31/2023 Sleep-disordered breathing 10/31/2023 Celiac disease 10/30/2023 Unspecified cirrhosis of liver 04/14/2020 Thrombocytopenia 10/15/2019 GENI positive 07/07/2019 PHT (pulmonary hypertension) 07/06/2019 Overview: Suspected on Echocardiogram when Hgb low. 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 Secondhand smoke exposure 07/06/2019 Environmental exposure 07/06/2019 Overview: Chickens, Ducks Pancytopenia documented as of this encounter (statuses as of 11/14/2023) Immunizations Name Administration Dates Next Due Pneumococcal [...] Reading Time Taken Comments Blood Pressure 102/64 11/14/2023 8:45 AM EST Pulse 81 11/14/2023 8:45 AM EST Temperature 36.5 C (97.7 F) 11/14/2023 8:45 AM ES T Respiratory Rate - - Oxygen Saturation 99% 11/14/2023 8:45 AM EST Inhaled Oxygen Concentration - - Weight 81.4 kg (179 lb 6.4 oz) 11/14/2023 8:45 A M EST Height 167 cm (5' 5.75") 11/14/2023 8:45 AM EST Body Mass Index 29.18 11/14/2023 8:45 AM EST documented in this encounter Progress Notes * Amy Salgado RDN - 11/14/2023 8:40 AM EST NUTRITION & WEIGHT MANAGEMENT CONSULT NOTE [facility] Name: Marianne Chand Location: NUTRITION & WEIGHT MANAGEMENT, [facility] Date: 11/14/2023 Time: 7:47 AM Patient was identified at visit by name and date. Patient was seen [id number] in the clinic. NUTRITION ASSESSMENT Referring Provider: Evangelina Dorado DO SUBJECTIVE: 62 year old female with Obesity Class I, Recent Dx Celiac Disease, Cirrhosis, pancytopenia, pulmonary hypertension, anemia who has been following in clinic since November 14, 2023 and lbs at that time. Patient Occupation Not working. Lives with daughter and grandson. Pt or daughter does the cooking and does the grocery shopping. PRIOR NUTRITION COUNSELING: No prior counseling SUPPLEMENTS: Multivitamin with minerals when remembers, Vitron C PERTINENT MEDICATIONS: No FOOD ALLERGY/INTOLERANCE ISSUES: No 11/14/23 -Initial RD visit -Symptoms with gluten containing diet are feeling more bloated. -Has started to follow a GF diet, less bloating. Describes typical diet history/24 hr recall Breakfast: Oatmeal Snacks: Fruit Lunch: Salad with chix or steak Snacks: cucumbers celery Dinner: Something GF, some type of meat or fish. GF noodles Snacks: Drinks: Water Alcohol: None Restaurant meals: once a week PHYSICAL ACTIVITY: Sedentary DIET RECALL INDICATES: Inadequate fiber intake Inadequate fruit and vegetable intake Inadequate protein intake Good meal distribution Low caffeine intake Adequate fluid intake Progress on goals from the previous visit: Initial RD visit today ANTHROPOMETRICS: Height: 65" Initial weight: 179 lbs Adjusted [place] Body Weight: 138 lbs/ 62 kg Current weight: 179 lbs Weight changes: -4.2% TBW in 3 m Wt Readings from Last 10 Encounters: 11/14/23 81.4 kg (179 lb 6.4 oz) 11/13/23 82.1 kg (181 lb) 11/06/23 81.7 kg (180 lb 1.6 oz) 10/31/23 82.9 kg (182 lb 12 oz) 10/23/23 83.6 kg (184 lb 3.2 oz) 10/10/23 84.8 kg (187 lb) 08/21/23 84.8 kg (187 lb) 08/13/23 83.5 kg (184 lb) 08/05/23 83 kg (183 lb) 04/20/21 80.6 kg (177 lb 12.8 oz) MNT: Low Fat Diet, High Fiber Diet, Good Nutrition, Nutrient Dense Diet, Gluten Free Diet LABS:Pertinent lab studies have been reviewed. Latest Reference Range & Units 11/06/23 10:08 WBC 4.00 - 10.80 K/uL 3.82 (L) HGB 12.0 - 15.3 g/dL 8.9 (L) HCT 36.0 - 45.2 % 30.7 (L) MCV 81.5 - 97.5 fL 88.7 PLT 140 - 400 K/uL 122 (L) (L): Data is abnormally low Latest Reference Range & Units 08/21/23 16:51 AST 10 - 35 U/L 36 (H) ALT 10 - 35 U/L 35 Alkaline Phosphatase 35 - 130 U/L 130 Bilirubin, Total <=1.2 mg/dL 8.3 (H) Bilirubin, Direct 0.0 - 0.3 mg/dL 0.7 (H) IgA 70 - 400 mg/dL 505 (H) (H): Data is abnormally high NUTRITION PRESCRIPTION: [place] [address] [place] 1549 x 1.2 activity factor = 1859 Kcals --> 1193-8845 Kcals for weight loss Protein: 1 gm protein/kg (62 kg) = 62 gm protein/day Fluid: 25 mL/kg (62 kg) = 1550 mL/day KNOWLEDGE ASSESSMENT: Limited Knowledge on GF diet, Pts daughter has started researching BARRIERS TO LEARNING: None SPECIAL EDUCATION NEEDS: None NUTRITION DIAGNOSIS: Unintentional weight loss related to celiac disease as evidenced by -4.2% TBW loss in 3 m. Overweight/obesity related to excessive energy intake and physical inactivity as evidenced by BMI of 29.18 kg/m, Class Overweight. NUTRITION INTERVENTION INSTRUCTED PT ON THESE NUTRITION HANDOUTS: Gluten Free Diet Booklet (reviewed in detail with pt during visit today) PATIENT GOALS: Continue to follow an exclusive gluten free diet. Review booklet provided for further education. Ensure adequate protein intake to prevent muscle waisting related to unintentional wt loss. Have a variety of fruits and vegetables in your diet. Consider a MVI, B Complex supplement Continue taking Vitron C EXPECTED OUTCOMES: Demonstrated interest in learning. Expect compliance with diet recommendations. PLAN: PRN per pt 30 min visit Amy Salgado RDN documented in this encounter Nursing Notes * Marquise Alexandra LPN - 11/14/2023 8:44 AM EST Chief Complaint Patient presents with Weight Management The pt stated she is interested in seeing a Dietitian today. documented in this encounter Plan of Treatment Upcoming Encounters Date Type Department Care Team (Latest Contact Info) Description 4 10:30 AM EST Telemedicine [facility] [address] Mumtaz Lizarraga MD [address] [place] [address] [place] [address] 4 11:00 AM EDT Laboratory Laboratory [address] [place] [phone] [facility] [address] [place] [address] 4 8:00 AM EDT Hospital Encounter ENDO [facility], Endoscopy Room [facility] [address] [place] [phone] Favian Escalante MD [address] [place] [address] 4 8:00 AM EDT - 4 9:00 AM EDT Surgery ENDO [facility], Endoscopy Room [facility] [address] [place] [address] Favian Escalante MD [address] [place] [address] ESOPHAGOGASTRODUODENOSCOPY (EGD), FLEXIBLE, TRANSORAL, ENDOSCOPIC ULTRASOUND 4 7:15 AM EDT Cardiac Studies Cardiac Studies, [facility] [address] [place] [address] 4 8:30 AM EDT PulmDiagnostic Pulmonary Function Lab, [facility] [address] [place] [address] [place], [address] [place] [address] 4 11:40 AM EDT Office Visit Hepatology, [facility] [address] [place] [address] Evangelina Dorado, [address] [place] [address] 4 11:00 AM EDT Laboratory Laboratory [address] [place] [phone] [place], Lab [address] [place] [address] 4 1:00 PM EDT Office Visit [facility] Practice [facility] [address] [place] [address] Sarah Galaviz DO [address] [place] [address] 4 2:00 PM EDT Office Visit Hematology/Onco logy Elma Francois [place] [address] [place] [phone] Anthony Ritchie MD [address] [place] [address] Scheduled Procedures Name Priority Associated Diagnoses Date/Ti [...] 10/15/2019 LUNG CANCER SCREENING - USE SMARTSET [id number] Completed 07/09/2019 Zoster Vaccines Completed 07/10/2020, 04/14/2020 [...] encounter Visit Diagnoses Diagnosis Celiac disease- Primary Cirrhosis of liver without ascites, unspecified hepatic cirrhosis type (HCC) Overweight (BMI 25.0-29.9) Overweight Hepatic cirrhosis, unspecified hepatic cirrhosis type, unspecified whether ascites present (HCC) Anemia, unspecified type documented in this encounter Care Teams Rn Surgery Relationship Specialty Start Date End Date Sarah Galaviz DO [address] [facility] [place] [address] PCP - General Family Medicine 06/30/19 documented as of this encounter
--- OUTSIDE RECORDS SUMMARY | 2023-12-10 20:25 | External Medical Summary | Summary of Care ---
Author Name Unknown Organization [facility] Address [address] [place] [address] Phone [phone] Care Team Providers Care Repatcher Name Role Phone Sarah Galaviz DO Primary Care Provider [phone] Reason for Visit * Reason Onset Date Comments FYI 10/30/2023 LGI Encounter Details Date Type Department Care Team (Late st Contact Info) Description 10/30/2023 Telephone Family Practice [facility] [address] [place] [address] Sarah Galaviz DO [address] [place] [address] FYI (LGI) Allergies No known active allergiesdocumented [...] 12:20 PM EST Office Visit Pulmonary Medicine, [facility] [address] [facility] [place] [address] Ray Rose DO [address] [place] [address] 11/06/2023 9:00 AM EST Office Visit Hematology/Oncol [facility] [facility] [address] Tammy Hammond CRNP [address] [place] [address] 11/13/2023 9:00 AM EST Office Visit Rheumatology [facility] [address] [place] [address] Maico Carrillo CRNP [address] [facility] [place] [address] 12/11/2023 8:00 AM EDT Hospital Encounter [facility]O [facility], Endoscopy Room [facility] [address] [place] [phone] Favian Escalante MD [address] [place] [address] 12/11/2023 8:00 AM EDT - 12/11/2023 9:00 AM EDT Surgery ENDO [facility], Endoscopy Room [facility] [address] [place] [address] Favian Escalante MD [address] [place] [address] ESOPHAGOGASTRODUODENOSCOPY (EGD), FLEXIBLE, TRANSORAL, ENDOSCOPIC ULTRASOUND 01/23/2024 11:40 AM EDT Office Visit Hepatology, [facility] [address] [place] [address] Evangelina Dorado, DO [address] [place] [address] 02/11/2024 1:00 PM EDT Office Visit Family Practice [facility] [address] [place] [address] Sarah Galaviz, DO [address] [place] [address] Scheduled Procedures Name Priority Associated Diagnoses Date/Ti [...] 10/15/2019 LUNG CANCER SCREENING - USE SMARTSET [id number] Completed 07/09/2019 Zoster Vaccines Completed 07/10/2020, 04/14/2020 [...] filedocumented as of this encounter Care Teams Repatcher Relationship Specialty Start Date End Date Sarah Galaviz DO [address] [place] [address] PCP - General Family Medicine 06/30/19 documented as of this encounter
--- OUTSIDE RECORDS SUMMARY | 2023-12-10 20:25 | External Medical Summary | Summary of Care ---
Author Name Unknown Organization [facility] Address [address] [facility] [place] [address] Phone [phone] Care Team Providers Care Medical Doctor Md/Medical Director Name Role Phone Sarah Galaviz DO Primary Care Provider [phone] Reason for Visit * Reason Comments Rheum Consultation Referred back for +A NA, last seen 2019 * Evaluate & Treat - Unlimited Visits (Within 10 days (routine)) - Pending Review Specialty Diagnoses / Procedures Referred By Mechelle espinosa Referred To Contact Rheumatology Diagnoses Thrombocytopenia (HCC) Pancytopenia (HCC) Positive GENI (antinuclear antibody) Deepa French DO [address] [place] [address] Referral ID Status Reason Start Date Expiration Date Visits Requested Visits Authorized [id number] Pending Review Specialty Services Required [phone] Encounter Details Date Type Department Care Team (Late st Contact Info) Description 11/13/2023 9:00 AM EST Office Visit Rheumatology [address] [place] [address] Maico Carrillo CRNP [address] [place] [address] [place] [address] Cirrhosis of liver without ascites, unspecified hepatic cirrhosis type (HCC)*; PHT (pulmonary hypertension) (HCC); Pancytopenia (HCC); Celiac disease Allergies No known active allergiesdocumented as of this encounter (statuses as of 11/13/2023) Medications Medication Sig Dispensed Refills Start Date [...] Additional Information Patient not taking.Reported on 11/06/2023 Sildenafil Citrate 20 MG Oral Tablet (Revatio)Indicatio ns:PHT (pulmonary hypertension) (HCC) Take 1 tablet in the morning, 1 tablet at noon, and 1 tablet before bedtime. Generic for Revatio. 90 Tablet 11 09/23/2023 Active Iron-Vitamin C 65-125 MG Oral Tablet (Vitron C)Indications:Iron deficiency anemia, unspecified iron deficiency anemia type Take 1 Tablet by mouth in the morning. 90 Tablet 1 11/06/2023 Active Folic Acid 1 MG Oral TabletIndications: Pancytopenia (HCC) Take 1 Tablet by mouth in the morning. 30 Tablet 2 08/21/2023 4 Discontinue d(Medicatio n List Clean Up) [...] as of this encounter (statuses as of 11/13/2023) Active Problems Problem Noted Date Diagnosed Date Nocturnal hypoxemia 10/31/2023 Sleep-disordered breathing 10/31/2023 Celiac disease 10/30/2023 Unspecified cirrhosis of liver 04/14/2020 Thrombocytopenia 10/15/2019 GENI positive 07/07/2019 PHT (pulmonary hypertension) 07/06/2019 Overview: Suspected on Echocardiogram when Hgb low. 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 Secondhand smoke exposure 07/06/2019 Environmental exposure 07/06/2019 Overview: Chickens, Ducks Pancytopenia documented as of this encounter (statuses as of 11/13/2023) Immunizations Name Administration Dates Next Due Pneumococcal [...] 1 981 - 05/27/2019 Smokeless Tobacco: Never Tobacco Cessation:Counseling Given: Not Answered Comments:stopped smoking while having kids Alcohol Use Standard Drinks/Week Comments [...] Sign Reading Time Taken Comments Blood Pressure 110/62 11/13/2023 8:47 AM EST Pulse - - Temperature 36.6 C (97.8 F) 11/13/2023 8:47 AM ES T Respiratory Rate - - Oxygen Saturation - - Inhaled Oxygen Concentration - - Weight 82.1 kg (181 lb) 11/13/2023 8:47 AM EST Height - - Body Mass Index 30.12 10/31/2023 11:58 AM EST documented in this encounter Progress Notes * Maico Carrillo CRNP - 11/13/2023 8:50 AM EST Reason for visit: Rheumatology consultation for + GENI Referring Provider: Sarah Galaviz DO Last office visit reviewed from 10/05/2019 HPI: Marianne Luiphani is here at the request of Sarah Galaviz DO for further evaluation of + GENI. Marianne Chand pmhx is listed below. Is returning as a new patient. She was seen in 2019and is not really sure why she is here today. She continues to suffer from Anemia. She has fatigue and a cough that won't go away. She reports having mid back pain but thinks it was worsening from her cough. She did have a + GENI 1:40 centromere in 2019 as well as a low C4. She was evaluated by Dr. Larsen for scleroderma which was ruled out. She notes she was recently diagnosed with cirrhosis on MRI and they are concerned for autoimmune liver disease. She is also being assessed for celiac. She was also seen by hematology in August for concern for a hematological disorder with splenomegaly. She saw pulmonology last week for PHT and will have PFT, echocardiogram, and referral to sleep medicine. Denies any skin thickening, dysphagia, photosensitive, raynaud's, DVT's, Hematuria, hemoptysis, dryeye's or dry mouth, oral/ocular ulcers, lymphadenopathy, pleurisy, pericarditis, or inflammatory joint disease. Musculoskeletal ROS: . Abnormal: back pain . Fatigue scale (0-10): 5 Other ROS: . Constitutional: fatigue . Head normal . Eyes: normal . Ears, nose, throat, mouth: normal . Cardiovascular: normal . Respiratory: cough and dyspnea on exertion . Gastrointestinal: normal . Genitourinary: normal . Skin: normal . Neurologic: normal . Psychiatric: normal . Endocrine: normal . Hematologic/lymphatic: normal . Allergic/immunologic: normal All other ROS reviewed and negative No outpatient medications have been marked as taking for the 11/13/23 encounter (Office Visit) with Maico Carrillo CRNP. Current Facility-Administered Medications for the 11/13/23 encounter (Office Visit) with Maico Carrillo CRNP Medication Albuterol Sulfate (Proventil) (2.5 MG/3ML) 0.083% inhalation solution 2.5 mg albuterol sulfate (PROVENTIL) (2.5 MG/3ML) 0.083% inhalation solution 2.5 mg Past Medical History: Diagnosis Date Allergic rhinitis [...] performed by Favian Escalante MD at ENDOSCOPY [facility] LIGATE/CUT OVIDUCT(S) RIGHT HEART CATH W/ O2 SAT AND CO Left 03/03/2020 RIGHT HEART CATH W/ O2 SAT AND CO performed by Eyal Tom MD at [facility] Family History Problem Relation Age of Onset Heart Disorder Mother bypass Alzheimer's disease Mother Asthma Mother Diabetes Father mild stroke. Hypertension Father Heart Disorder Father bypass Stroke Father Endocrine Disorder Sister thyroid No Known Problems Sister No Known Problems Sister Diabetes Brother Other (Killed in a fire) Brother Other (Healthy) Daughter Other (Healthy) Son Other (Other) Other No h/o cancer, neurological problems Social History Social History Tobacco Use Smoking status: Former Current packs/day: 0.00 Average packs/day: 1 pack/day for 38.7 years (38.7 ttl pk-yrs) Types: Cigarettes Start date: 1980 Quit date: 05/27/2019 Years since quittin.4 Smokeless tobacco: Never Tobacco comments: stopped smoking while having kids Vaping Use Vaping Use: Never used Substance Use Topics Alcohol use: No Drug use: Never Physical Exam Filed Vitals: 11/13/23 0847 BP: 110/62 Temp: 36.6 C (97.8 F) Weight: 82.1 kg (181 lb) General: alert, healthy, and no distress HENT: normocephalic, external ears normal, no mucosal erythema, no mucosal edema, moist mucosa, no oral ulcers Eye Exam: PERRL, EOMI, conjunctiva are pink and non-injected, sclera jaundice Neck: supple, no adenopathy, no bruits, thyroid normal size, non-tender, without nodularity Lymph: no palpable lymphadenopathy Heart: regular rate & rhythm, no murmur, and no gallops Lungs: anterior rhonchi, posterior upper lobe rhonchi, lower lobe rhonchi with experitory crackles Pulses: radial=2/4, dorsalis pedis=2/4 Abdomen: abdomen soft, non-tender, normal bowel sounds, and no masses or organomegaly Extremities: no edema, no clubbing, no cyanosis Neuro Exam: alert & oriented x 3 with fluent speech, no focal motor/sensory deficits, gait normal, reflexes normal and symmetric Skin: skin color, texture, turgor are normal, no rashes or significant lesions Musculoskeletal Exam: . Normal LABS: 10/23/2023: BMP, CBC-hemoglobin 8.6, platelets 103 LFTs: AST and ALT elevation 03/10/2020: GENI IFA<40 07/06/2019: SLE reflex panel: GENI < 40 Scl 70 antibody: 4.7 SSA/SSB: 2.2/4.3 RF: <10 CCP antibody: < 16 Ute 1 antibody: 3 Imagin09/27/2023: MRI abdomen w/o contrast IMPRESSION: Hepatic cirrhosis. No obvious suspicious hepatic mass on this noncontrast study. Correlate clinically for chronic liver disease and HCC surveillance recommended. Assessment (K74.60) Cirrhosis of liver without ascites, unspecified hepatic cirrhosis type (HCC) (primary encounter diagnosis) (I27.20) PHT (pulmonary hypertension) (HCC) (D61.818) Pancytopenia (HCC) (K90.0) Celiac disease Ms. Chand was referred by Dr. French for further evaluation of thrombocytopenia/pancytopenia, history of positive GENI, possibility of autoimmune liver process. The patient has had positive GENI in the past but most recent GENI was negative. Based on history and physical exam, very unlikely that she has limited scleroderma at this time, negative for Raynaud's. Continues to follow with GI for cirrhosis. Liver biopsy ordered twice over the past 4 years, most rescheduled. We will await liver biopsy on 12/11/2023 to see if there is a possibility of autoimmune component to her liver disease. Continues to follow with pulmonology for PHT, she will get updated echocardiogram, referral to sleep Medicine, and PFT. Follows hematology/Oncology for pancytopenia. No labs ordered today. We will follow-upas needed pending liver biopsy. Follow-Up Plan Patient should return in as needed pending liver biopsy Labs Needed: no No medications ordered today Contact clinic with any questions or concerns Discussed the above in detail with the patient. All questions answered. CC Dr. French I spent a total of 40-54 minutes (exact time 40 mins) on the date of service in preparation, delivery, and documentation of the care provided to Marianne Chand excluding any time spent in the performance of separately billed services. WINSTON Maguire Rheumatology Department I saw and examined the patient. I agree with the findings and plan as documented by Maico MONTERO in this note. Initially was seen for positive GENI with question limited scleroderma but had no response to Plaquenil and repeat GENI was negative. Has not been seen for several years and has no skin findings concerning for scleroderma. Really seems that her liver disease is the major issue here and she needs to get a liver biopsy done but she has been noncompliant in follow-up. Explained to her the importance of getting the liver biopsy done. She has no historical complaints that are concerning for a connective tissue disease at this time. Will await liver biopsy results. Clarke Payan MD Rheumatology Department documented in this encounter Nursing Notes * Jocelyne Esparza LPN - 11/13/2023 8:49 AM EST Chief Complaint Patient presents with Rheum Consultation Referred back for +GENI, last seen 2019 documented in this encounter Plan of Treatment Upcoming Encounters Date Type Department Care Team (Latest Contact Info) Description 4 8:40 AM EST Nutrition Services Nutrition & Weight Management, [facility] [address] [place] [address] Amy Salgado RDN [address] [place] [address] 4 10:30 AM EST Telemedicine [facility] [address] Mumtaz Lizarraga MD [address] [place] [address] 4 11:00 AM EDT Laboratory Laboratory [address] [place] [phone] [address] [place] [address] 4 8:00 AM EDT Hospital Encounter ENDO [facility], Endoscopy Room [facility] [address] [place] [phone] Favian Escalante MD [address] [place] [address] 4 8:00 AM EDT - 4 9:00 AM EDT Surgery ENDO [facility], Endoscopy Room [facility] [address] [place] [phone] Favian Escalante MD [address] [place] [address] ESOPHAGOGASTRODUODENOSCOPY (EGD), FLEXIBLE, TRANSORAL, ENDOSCOPIC ULTRASOUND 4 7:15 AM EDT Cardiac Studies Cardiac Studies, [facility] [place] [address] 4 8:30 AM EDT PulmDiagnostic Pulmonary Function Lab, [facility] 132 [facility] [place] [address] [place], Pft [facility] [place] [address] 4 11:40 AM EDT Office Visit Hepatology, [facility] [place] [address] Evangelina Dorado, DO 132 [facility] [place] [address] 4 11:00 AM EDT Laboratory Laboratory [address] [place] [phone] [place], Lab [address] [place] [address] 4 1:00 PM EDT Office Visit Family Practice [facility] [place] [address] Sarah Galaviz, DO [facility] [place] [address] 4 2:00 PM EDT Office Visit Hematology/Onco logy Elma Francois [place] [address] [place] [phone] Anthony Ritchie MD [address] [place] [address] Scheduled Procedures Name Priority Associated Diagnoses Date/Ti me ESOPHAGOGASTRODUODENOSCOPY ( EGD), FLEXIBLE, TRANSORAL, ENDOSCOPIC ULTRASOUND Hepatic cirrhosis, unspecified hepatic cirrhosis type, unspecified whether ascites present (HCC) Anemia, unspecified type 12/11/2023 8:00 AM EDT Scheduled Referrals Name Type Priority Associated Diagnoses Order Schedule RHEUMATOLOGY REFERRAL OP Referral Within 10 days (routine) Thrombocytopenia (HCC) Pancytopenia (HCC) Positive GENI (antinuclear antibody) Ordered: 08/05/2023 Health Maintenance Due Date Last Done Comments [...] 10/15/2019 LUNG CANCER SCREENING - USE SMARTSET 22287 Completed 07/09/2019 Zoster Vaccines Completed 07/10/2020, 04/14/2020 [...] as of this encounter Visit Diagnoses Diagnosis Cirrhosis of liver without ascites, unspecified hepatic cirrhosis type (HCC)- Primary PHT (pulmonary hypertension) (HCC) Other chronic pulmonary heart diseases Pancytopenia (HCC) Other pancytopenia Celiac disease Hepatic cirrhosis, unspecified hepatic cirrhosis type, unspecified whether ascites present (HCC) Anemia, unspecified type documented in this encounter Care Teams Medical Doctor Md/Medical Director Relationship Specialty Start Date End Date Sarah Galaviz DO [address] [place] [address] PCP - General Family Medicine 06/30/19 documented as of this encounter
--- OUTSIDE RECORDS SUMMARY | 2023-12-10 20:25 | External Medical Summary | Summary of Care ---
Author Name Unknown Organization [facility] Address [address] [facility] [place] [address] Phone [phone] Care Team Providers Care Test Specialist Name Role Phone Sarah Galaviz DO Primary Care Provider [phone] Reason for Visit * Reason Comments Follow Up F/U Encounter Details Date Type Department Care Team (Late st Contact Info) Description 11/06/2023 9:00 AM EST Office Visit Hematology/Oncology [facility] [address] [facility] [address] Tammy Hammond CRNP [address] [facility] [place] [address] Pancytopenia (HCC)*; [...] were not included. Hematology/Oncology Outpatient Clinic note [facility] [address] [place] [address] Name: Marianne Chand Date: 11/06/2023 CHIEF COMPLAINT: [...] 1 (H) 1 (H) Was seen in [facility] ED in July for unexplained jaundice [...] Is having some increased weakness and fatigue. [place] this all started when she started letairis for pulmonary HTN. Unknown etiology. Follows with provider at [facility]. Never had liver biopsy that was recommended [...] performed by Favian Escalante MD at ENDOSCOPY [facility] LIGATE/CUT OVIDUCT(S) RIGHT HEART CATH W/ O2 SAT AND CO Left 03/03/2020 RIGHT HEART CATH W/ O2 SAT AND CO performed by Eyal Tom MD at CARDIAC LABS [facility] Social History Socioeconomic History Marital status: Spouse [...] mg Nebulizer Once PRN Ray Rose DO REVIEW OF SYSTEMS: See HPI [...] 10 - 35 U/L 35 Component Latest [facility] 08/21/2023 Iron 33 - 151 ug/dL 49 Iron Binding Capacity 250 - 425 ug/dL 396 Transferrin Saturation Percent 15 - 55 % 12 (L) Component Latest [facility] 08/21/2023 Ferritin 13 - 150 ng/mL 18 Component Latest [facility] 08/21/2023 Haptoglobin 30 - 200 mg/dL 14 (L) Component Latest [facility] 08/21/2023 Reticulocyte Percent 0.80 - 1.90 % 5.77 (H) Absolute Reticulocyte 31.3 - 100.1 K/uL 196.2 (H) Immature Reticuloctye Fraction 2.5 - 20.6 % 34.6 (H) Reticulocyte Hemoglobin 29.7 - 37.4 pg 24.8 (L) Component Latest [facility] 08/21/2023 LD <=250 U/L 176 Cold Hemagglutinins SEE BELOW Comment: Cold Hemagglutinins None Detected Direct Alexi Negative Component Latest [facility] 08/21/2023 Protein 6.0 - 8.3 g/dL 7.2 [...] liver disease or collagen disorders. Component Latest [facility] 08/21/2023 Andale Free Light Chains, Serum 3.30 - 19.40 mg/L 37.80 (H) Lambda Free Light Chains, Serum 5.71 - 26.30 mg/L 39.05 (H) Andale Lambda Free Light Chains Ratio 0.26 - 1.65 0.97 Component Latest [facility] 08/21/2023 IgA 70 - 400 [...] Letairis. Has upcoming appointment with pulmonary in [place]. She is going todiscuss with them possibly [...] 4 9:00 AM EST Office Visit Rheumatology [place] [address] [place] [address] Maico Carrillo CRNP [address] [facility] [place] [address] 4 11:00 AM EDT Laboratory Laboratory [address] [place] [phone] [address] [place] [address] 4 8:00 AM EDT Hospital Encounter ENDO [facility], Endoscopy Room [facility] [address] [place], [place] [phone] Favian Escalante MD [address] [place] [address] 4 8:00 AM EDT - 4 9:00 AM EDT Surgery ENDO [facility], Endoscopy Room [facility] [address] [place] [phone] Favian Escalante MD [address] [place] [address] ESOPHAGOGASTRODUODENOSCOPY (EGD), FLEXIBLE, TRANSORAL, ENDOSCOPIC ULTRASOUND 4 7:15 AM EDT Cardiac Studies Cardiac Studies, [facility] [address] [place] [address] 4 8:30 AM EDT PulmDiagnostic Pulmonary Function Lab, [facility] [address] [place] [address] [place], Pft [address] [place] [address] 4 11:40 AM EDT Office Visit Hepatology, [facility] [address] [place] [address] Evangelina Dorado DO [address] [place] [address] 4 11:00 AM EDT Laboratory Laboratory [address] [place] [phone] [place], Lab [address] [place] [address] 4 1:00 PM EDT Office Visit [facility] [address] [place] [address] Sarah Galaviz DO [address] [place] [address] 4 2:00 PM EDT Office Visit Hematology/Onco logy Elma Francois [place] [address] [place] [address] Anthony Ritchie MD [address] [place] [address] Scheduled Orders Name Type Priority Associated Diagnoses [...] 10/15/2019 LUNG CANCER SCREENING - USE SMARTSET [id number] Completed 07/09/2019 Zoster Vaccines Completed 07/10/2020, 04/14/2020 [...] BLOOD ORDER [facility] [address] [place], [place] [id number] * IRON SCREEN, INCLUDING TIBC (11/06/2023 10:08 [...] LAB BLOOD ORDER [facility] Performing Organization Address [facility] Co de Phone Number LABORATORY [facility] [address] [place] [address] documented in this encounter Visit Diagnoses Diagnosis [...] type documented in this encounter Care Teams Test Specialist Relationship Specialty Start Date End Date Sarah Galaviz DO 132 [facility] [place] [address] PCP - General Family Medicine 06/30/19 documented as of this encounter
--- OUTSIDE RECORDS SUMMARY | 2023-12-10 20:25 | External Medical Summary | Summary of Care ---
Author Name Unknown Organization [facility] Address [address] [place] [address] Phone [phone] Care Team Providers Care Meeting Facilitator Name Role Phone Sarah Galaviz DO Primary Care Provider [phone] Reason for Referral * Evaluate & Treat - Unlimited Visits (Within 10 days (routine)) - Pending Review Specialty Diagnoses / Procedures Referred By Contact Referred To Contact GI NUTRITION/IM / Gastroenterology Diagnoses Celiac disease Evangelina Dorado DO [address] [place] [address] Referral ID Status Reason Start Date Expiration Date Visits Requested Visits Authorized [id number] Pending Review Specialty Services Required 10/24/2023 999 [...] st Contact Info) Description 10/24/2023 Telephone Hepatology, [facility] [address] [place] [address] Evangelina Dorado DO [address] [place] [address] Test Results Allergies No known active allergiesdocumented [...] Encounter - Mily Waterman RN - 10/24/2023 3:04 PM EST Pt returned call. Notified. * Telephone Encounter - Mily Waterman RN [...] 12:20 PM EST Office Visit Pulmonary Medicine, [facility] [address] [place] [address] Ray Rose DO [address] [place] [address] 11/06/2023 9:00 AM EST Office Visit Hematology/Oncol [place] 200 [facility] [place] [address] Tammy Hammond CRNP [address] [place] [address] 11/13/2023 9:00 AM EST Office Visit Rheumatology [place] [address] [facility] [place] [address] Maico Carrillo CRNP [address] [facility] [place] [address] 12/11/2023 8:00 AM EDT Hospital Encounter ENDO [facility], Endoscopy Room [facility] [address] [place] [phone] Favian Escalante MD [address] [place] [address] 12/11/2023 8:00 AM EDT - 12/11/2023 9:00 AM EDT Surgery [facility], Endoscopy Room [facility] [address] [place] [address] Favian Escalante MD [address] [place] [address] ESOPHAGOGASTRODUODENOSCOPY (EGD), FLEXIBLE, TRANSORAL, ENDOSCOPIC ULTRASOUND 01/23/2024 11:40 AM EDT Office Visit Hepatology, [facility] [address] [place] [address] Evangelina Dorado DO [address] [place] [address] 02/11/2024 1:00 PM EDT Office Visit Family Practice [facility] [address] [place] [address] Sarah Galaviz, [address] [place] [address] Scheduled Procedures Name Priority Associated Diagnoses Date/Ti [...] 10/15/2019 LUNG CANCER SCREENING - USE SMARTSET [id number] Completed 07/09/2019 Zoster Vaccines Completed 07/10/2020, 04/14/2020 [...] type documented in this encounter Care Teams Meeting Facilitator Relationship Specialty Start Date End Date Sarah Galaviz DO [address] [place] [address] PCP - General Family Medicine 06/30/19 documented as of this encounter
--- OUTSIDE RECORDS SUMMARY | 2023-12-10 20:25 | External Medical Summary | Summary of Care ---
Author Name Unknown Organization [facility] Address [address] [facility] [place] [address] Phone [phone] Care Team Providers Care Ballet Teacher Name Role Phone Sarah Galaviz DO Primary Care Provider [phone] Encounter Details Date Type Department Care Team (Late st Contact Info) Description 10/30/2023 External Data Patient Risk Medial Allergies No known active allergiesdocumented as of [...] 12:20 PM EST Office Visit Pulmonary Medicine, [facility] [address] [place] [address] Ray Rose DO [address] [place] [address] 11/06/2023 9:00 AM EST Office Visit Hematology/Oncol ogy [facility] [address] [place] [address] [facility] Hammond [facility] [address] [facility] [place] [address] 11/13/2023 9:00 AM EST Office Visit Rheumatology [facility] [address] [facility] [place] [address] Maico Carrillo CRNP [address] [facility] [place], [place] [address] 12/11/2023 8:00 AM EDT Hospital Encounter [facility]O [facility], Endoscopy Room [facility] [address] [address] [phone] Favian Escalante MD [address] [place] [address] 12/11/2023 8:00 AM EDT - 12/11/2023 9:00 AM EDT Surgery ENDO [facility], Endoscopy Room [facility] [address] [place] [phone] Favian Escalante MD [address] [place] [address] ESOPHAGOGASTRODUODENOSCOPY (EGD), FLEXIBLE, TRANSORAL, ENDOSCOPIC ULTRASOUND 01/23/2024 11:40 AM EDT Office Visit Hepatology, [facility] [address] [place] [address] Evangelina Dorado, DO [address] [place] [address] 02/11/2024 1:00 PM EDT Office Visit Family Practice [facility] [address] [place] [address] Sarah Galaviz, DO [address] [place] [address] Scheduled Procedures Name Priority Associated Diagnoses Date/Ti [...] 10/15/2019 LUNG CANCER SCREENING - USE SMARTSET [id number] Completed 07/09/2019 Zoster Vaccines Completed 07/10/2020, 04/14/2020 [...] filedocumented as of this encounter Care Teams Ballet Teacher Relationship Specialty Start Date End Date Sarah Galaviz DO [address] [place] [id number] PCP - General Family Medicine 06/30/19 documented as of this encounter
--- OUTSIDE RECORDS SUMMARY | 2023-12-10 20:25 | External Medical Summary | Summary of Care ---
Author Name Unknown Organization [facility] Address [address] [place] [address] Phone [phone] Care Team Providers Care Lead Warehouse Associate Name Role Phone Sarah Galaviz DO Primary Care Provider [phone] Reason for Referral * Evaluate & Treat - Unlimited Visits (Within 10 days (routine)) - Pending Review Specialty Diagnoses / Procedures Referred By Mechelle espinosa Referred To Contact Sleep Medicine / Sleep Disorders Diagnoses PHT (pulmonary hypertension) (HCC) Pulmonary hypertension (HCC) Ray Rose DO [address] [place] [address] Referral ID Status Reason Start Date Expiration Date Visits Requested Visits Authorized [id number] Pending Review Specialty Services Required 10/31/2023 2 2 Question Answer Referral Priority Within 10 days (routine) Where should this appointment be scheduled? [facility] CAD SLEEP MED ADULT REFERRAL Sleep Apnea Testing and Management Does the patient snore and/or gasp at night or has been told they stop breathing at night? Unknown Comments Pulmonary hypertension with history of abnormal home sleep test. Please evaluate and treat. Thank you. * Precert (Within 10 days (routine)) - Pending Review Specialty Diagnoses / Procedures Referred By Mechelle espinosa Referred To Contact Cardiac Studies Diagnoses PHT (pulmonary hypertension) (HCC) Procedures ECHO, COMPLETE (2D), TRANS-THORACIC Ray Rose DO [address] [place] [address] Referral ID Status Reason Start Date Expiration Date Visits Requested Visits Authorized [id number] Pending Review Precert 11/07/[phone] Reason for Visit * Reason Comments Follow Up * Evaluate & Treat - Unlimited Visits (Within 10 days (routine)) - Pending Review Specialty Diagnoses / Procedures Referred By Contac t Referred To Contact Pulmonary Diseases / Pulmonary Diagnoses PHT (pulmonary hypertension) (HCC) PAH (pulmonary artery hypertension) (HCC) Thrombocytopenia (HCC) Pancytopenia (HCC) Deepa French DO [address] [place] [address] Referral ID Status Reason Start Date Expiration Date Visits Requested Visits Authorized [id number] Pending Review Specialty Services Required 3 [phone] Encounter Details Date Type Department Care Team (Late st Contact Info) Description 10/31/2023 12:20 PM EST Office Visit Pulmonary Medicine, [facility] [address] [place] [address] Ray Rose DO [address], [place] [id number] PHT (pulmonary hypertension) (HCC)*; Pulmonary hypertension (HCC); Tobacco abuse, in remission; Pancytopenia (HCC); GENI positive; Environmental exposure; Thrombocytopenia (HCC); Nocturnal hypoxemia; Sleep-disordered breathing Allergies No known active allergiesdocumented as of [...] Sign Reading Time Taken Comments Blood Pressure 128/60 10/31/2023 11:58 AM EST Pulse 101 10/31/2023 11:58 AM EST Temperature 37 C (98.6 F) 10/31/2023 11:58 AM EST Respiratory Rate 18 10/31/2023 11:58 AM EST Oxygen Saturation 98% 10/31/2023 11:59 AM EST ra, amb Inhaled Oxygen Concentration - - Weight 82.9 kg (182 lb 12 oz) 10/31/2023 11:58 A M EST Height 165.1 cm (5' 5") 10/31/2023 11:58 AM EST Body Mass Index 30.41 10/31/2023 11:58 AM EST documented in this encounter Progress Notes * Ray Rose DO - 10/31/2023 12:20 PM EST PULMONARY NOTE REFERRING PHYSICIAN: Manish Rosales DO REASON FOR REFERRAL: "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 Quit May 2019), anxiety, allergic rhinitis, pancytopenia, abnormal LFTs, celiac disease. She was seen by Rheumatology 10/07/2018 for possible scleroderma, but this was not felt to be likely (was trialed on Plaquenil without improvement). She was admitted to an outside hospital for 2-3 days in August 2020 secondary to COVID pneumonia.She seemingly recovered without lasting effect. Pulmonary hypertension medications: Sildenafil 20 mg 3 times daily Ambrisentan 10 mg daily Lasix 20 mg daily INTERIM EVENTS / ROS: The patient has been lost to follow-up since 04/20/2021. The patient was placed in a standard 20 minute pulmonary follow-up slot, rather than a pulmonary hypertension Specialty Clinic follow-up slot. Therefore, all aspects of her pulmonary hypertension care could not be addressed today. Feeling OK" She notes "Ambrisentan, I haven't taken in quite a while" She notes she is compliant with Sildenafil and Lasix She notes she has issues affording her medications "When Biden took over, he got rid of the drugprograms. It was to a point I didn't have to pay for anything. Then he took over" No unplanned physician or ED visits due to breathing concerns since last pulmonary appointment No shortness of breath at rest or conversational dyspnea No orthopnea + dyspnea on exertion Going up stairs or up a big hill" + cough without sputum - She reports she attributes this to an acute cold "My family had it going around and now I got it" No hemoptysis No wheeze or chest tightness No chest pain or palpitations "That one pill keeps it down" edema No syncope but notes + presyncopal symptoms "Only if I stand up real quick" No GERD symptoms + rhino sinus/allergy symptoms Acutely worse, attributed to an acute cold Fluticasone nasal spray Weight "It goes up a couple pounds, down a couple pounds" "Maybe a little bit when I had the cough really bad" fevers, chills, sweats Supplemental oxygen: Awake/rest: Room air Exertion: Room air Sleep: Room air PAP therapy: No Inhaled medications: Prn albuterol HFA. Using "No. It doesn't seem like it works" Illegal drug/diet pill/stimulants: Denies use PH specific medications: Sildenafil 20 mg 3 times daily - Using Ambrisentan 10 mg daily - NOT TAKING due to financial reasons, as above Furosemide 20 mg daily - Taking Past Medical History: Diagnosis Date Allergic rhinitis Anxiety state ? anxiety attack. Celiac disease Followed by [facility] Environmental exposure 07/06/2019 Chickens, Ducks Pancytopenia (HCC) PHT (pulmonary hypertension) (HCC) 07/06/2019 Suspected on Echocardiogram when Hgb low. 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 Review of patient's allergies indicates: No Known [...] Rose DO 2.5 mg at 07/09/19 1459 SOCIAL HISTORY PAST PULMONARY HISTORY: Previous tobacco abuse: 1/2 - 1 pack cigarettes off and on X 20 total years. Quit May 2019 + secondhand smoke exposure: Previously lived with a smoker Pulmonary hypertension. [place] to represent WHO group 1 disease. 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 Oriented X 3. No acute distress. Able to speak in full sentences, without conversational dyspnea, while on room air. No cough during interview. . Eyes: Extraocular movements intact. Sclerae clear Ears: External ears normal in shape and color Nose: No mucosal edema or erythema. No discharge. Oropharynx: Moist mucous membranes. No erythema or discharge in the posterior oropharynx. Neck: No bruits. No stridor. Lymph: No palpable cervical or supraclavicular lymphadenopathy Heart: Regular with soft systolic murmur. Lungs: Mildly diminished bibasilar breath sounds and few bibasilar crackles. No rhonchi or wheeze. Relatively preserved air movement in the mid and upper lung goins posteriorly. Pulses: palpable in Bilateral lower extremmities Abdomen: Soft, non-tender and normal bowel sounds Extremities: 1+ pitting bilateral lower extremity distal pretibial and ankle edema. No cyanosis Neurologic: Alert & oriented x 3 with fluent speech, no focal motor/sensory deficits. Comfortably able to stand from a chair and walk in hallways without assistance. Skin: No rash or significant lesions on the exposed skin. Labs: 10/23/2023: BMP: Metabolic acidosis with elevated anion gap. Electrolytes grossly unremarkable. Estimated GFR 84. INR: 1.3 CBC with differential: Normal white blood cell count with unremarkable differential. Absolute eosinophil count 0.07K/uL. Anemia with hemoglobin 8.6. Thrombocytopenia with platelet count 103 LFTs: AST elevation. Mild alkaline phosphatase elevation. Elevated. ALT and albumin. 08/05/2023: ProBNP: 340 04/18/2021: LFTs: Significant elevation of total bilirubin. Otherwise, LFTs within normal limits. ProBNP: 48 (previously 70 on 12/01/2020) BMP: Preserved renal function, mildly decreased bicarbonate with normal measured anion gap (improved from prior). Mild hyperchloremia with otherwise unremarkable electrolytes. CBC with differential: Mild leukopenia without left shift or eosinophilia. Anemia with hemoglobin 9.2. Thrombocytopenia. 03/10/2020: GENI IFA: < 40 Mitochondrial antibody/Primary biliary cirrhosis: 21.3 (normal: < 20) Anti smooth muscle antibody: 27.3 (normal < 20) 02/18/2020: Tick-borne illness panel: Negative 07/06/2019: SLE reflex panel: GENI < 40 Scl 70 antibody: 4.7 (normal) SSA/SSB: 2.2/4.3 (normal) Rheumatoid factor: < 10 CCP antibody: < 16 Ute 1 antibody: 3 (normal: < 20) 07/15/2018: TSH: 1.41 06/07/2019: Peripheral blood smear: Normal chronic normocytic anemia. Favor anemia of chronic disease and/or blood loss. Thrombocytopenia. Favor peripheral destruction, consumption, and sequestration. Erythropoietin: 336.8 (normal: 2.6 -18.5) Reticulocyte index (calculated): 2.31 (suggests adequate response) Nocturnal pulse oximetry: 02/13/2020: Home nocturnal pulse oximetry performed on room air: Time with pulse oximetry </= 88%: 8 minutes. Time with pulse oximetry </= 89%: 26.6 minutes. Low SpO2: 84%. High SpO2: 99%. Home sleep testing/polysomnogram: 05/30/2020: At home sleep study. RDI: 4.7 oxygen saturation decreased to a low of 84% with a total of 45.7 minutes with pulse oximetry < 89%. This study does not quite meet criteria for sleep apnea, with the MELANY just under 5. Home sleep apnea testing may underestimate the presence of BOGDAN, especially if there is poor sleep efficiency on the night of the test. The oxygen saturation dropped as low as 84%, with a total of 45.7 minutes < 89%, which is suggestive of hypoxemia. Recommendation: In-lab polysomnography." Clinician interpretation of Pulmonary Function Tests: 04/20/2021: 6 minute walk test performed on room air: Traveled 400 m. Baseline oxygen saturation 98%. Lowest oxygen saturation 93%. Baseline heart rate 78. Highest heart rate 116. Baseline Amanda dyspnea Scale 0. Highest Amanda 1. Blood pressure 132/48. Resting respiratory rate: 14. Respiratory rate at 6 minutes: 19. 07/09/2019: Baseline spirometry is normal. Following bronchodilator, there is no significant change. Lung volumes suggest the presence of air trapping. Total lung capacity and expiratory reserve volume are within normal limits. Uncorrected Diffusion Capacity (DLCO) is mildly decreased at 66% predicted. Flow volume loops are unremarkable. No prior PFTs on file for comparison. Clinician interpretation of Chest X-ray: 08/05/2023: Slightly flattened hemidiaphragms. Mildly elevated right hemidiaphragm. Mild pulmonary vascular congestion, though no overt parenchymal infiltrate or gross pleural disease. Cardiomediastinal silhouette otherwise within normal limits. When compared to prior chest x-ray 12/01/2020, there has been no significant change. Clinician interpretation of Chest CT scan: 07/09/2019: IMPRESSION No interstitial lung disease" -- Mild subsegmental atelectasis of the medial right middle lobe and lingula. No significant mediastinal or hilar adenopathy. Ventilation/perfusion scan: 04/25/2020: Impression: No scintigraphic evidence of pulmonary embolism on this perfusion only exam" Echocardiogram: 06/28/2021: LV wall thickness normal. LV systolic function normal. LV EF 61%. RV cavity is moderately dilated. RV systolic function normal. Mild mitral regurgitation. Moderate tricuspid regurgitation. Severe pulmonary hypertension is present. Estimated PA systolic pressure 85-89 mm Hg. Compared to prior study dated 12/11/2020, there pulmonary artery systolic pressure has increased and is similar to pressures measured in 2019. Atrial size normal. Diastolic function normal. Mild mitral regurgitation. Moderate tricuspid regurgitation. No pericardial effusion. PA acceleration time 0.13 seconds. Tricuspid regurgitant max velocity 462.6 centimeters/second Cardiac catheterization: 03/03/2020: Right heart catheterization: RA: 1 RV: 71/1 PA: 73/21 (40) PW: 5 Adilson: Cardiac output: 3.67 liters/minute. Cardiac index: 1.88 liters/minute per meter squared Thermodilution: Cardiac output: 4.78 L per minute. Cardiac index: 2.44 liters/minute per meter squared. Pulmonary vascular resistance: 7.3 wood units Assessment: Pulmonary hypertension. Elements of WHO Groups: 1: Primarily/idiopathic, liver disease -- Likely playing the major role 2: Valvular heart disease 3: Nocturnal hypoxemia and likely untreated sleep disordered breathing 4: No evidence of chronic thromboembolic disease on nuclear medicine pulmonary perfusion scan 04/25/2020 5: Stage 2 chronic kidney disease WHO functional class 2 Nonadherence to medical treatment Lost to follow-up 04/20/2021 - 10/31/2023 despite letters being sent to her home requesting her to schedule an appointment for follow-up. She notes issues affording ambrisentan, but has not reached out to the Pulmonary hypertension Clinic for assistance. Nocturnal hypoxemia noted on overnight pulse oximetry 02/13/2020 Status post home sleep test, which recommended polysomnogram. Referred to [facility] sleep medicine 10/31/2023. Pancytopenia Followed by [facility] Hematology/Oncology Possibly will undergo bone marrow biopsy Possible rheumatologic condition Concern for scleroderma (felt to be less likely), evaluated by [facility] rheumatology No response to Plaquenil Gastroenterology: Followed by [facility] Gastroenterology Abnormal LFTs (elevated bilirubin) with elevated mitochondrial antibody and smooth muscle antibody Celiac disease ? PBC +/- autoimmune hepatitis Exposures: Chickens, ducks, removing mold while remodeling and old home Prior tobacco abuse: 1/2 pack cigarettes per day off and on X 20 total years. Quit May 2019 Prior secondhand smoke exposure Allergic rhinitis Recommendations and Plans: Pulmonary vasodilators: I instructed her to continue taking sildenafil for now. However, we discussed that she likely requires additional pulmonary vasodilators. Sildenafil 20 mg 3 times daily Previously took Ambrisentan 10 mg daily. However, she stopped this due to financial reasons. Pulmonary function testing: Ordered spirometry before/after bronchodilator, lung volumes, Diffusion Capacity (DLCO), 6 minute walk Cardiac: Ordered updated echocardiogram to help assess RV/LV and valvular function as well as estimate pulmonary pressures. Chest imaging: None further ordered Inhaled medications: Prn albuterol HFA Supplemental oxygen/sleep medicine: The patient did demonstrate nocturnal hypoxemia on home testing January 2020 and had an inconclusive home sleep study 05/2020 which also showed significant nocturnal hypoxemia Home sleep test 05/30/2020 could not diagnosed BOGDAN, but was felt to possibly be underestimating thedegree of apnea. An in-lab polysomnogram was recommended but not yet performed She is resistant to using supplemental O2 or PAP therapy. However, we discussed that treatment of hypoxemia and possible sleep disordered breathing must be performed if she is to have her pulmonary hypertension properly treated. Therefore, she did agree to speak to sleep medicine regarding further testing & treatment options. A sleep medicine referral was placed. Pulmonary hygiene: Regular aerobic exercise is recommended. Labs: None ordered today Likely need to follow LFTs, proBNP, high sensitivity troponin T. However, will attempt to optimize her pulmonary hypertension treatment prior to regularly following these labs. Specialty follow-up: I ordered a referral to sleep medicine. She is well overdue for in-lab polysomnogram as recommendedper read of her home sleep test performed 05/30/2020. She was resistant to considering supplementalO2 or PAP therapy, though did note she will consider speaking to sleep medicine regarding further testing and treatment options (? Oral appliance, etc) Gastroenterology for management of abnormal LFTs, elevated mitochondrial antibody, elevated smooth muscle antibody, and celiac disease workup/management, as directed Rheumatology, as directed Hematology for pancytopenia workup/management, as directed Primary care provider/referring provider should consider/facilitate the following: Keep respiratory vaccinations up-to-date Keep all age-appropriate cancer screens up-to-date The patient should avoid secondhand smoke exposure and use proper personal protective equipment anytime exposed to smoke, fumes, dust, chemicals, particulate matter, etc. No pulmonary contraindication to regular aerobic exercise, which is encouraged. All questions from the patient were answered. As above, I had a rylan discussion with the patient regarding her significant pulmonary hypertension. We discussed that medication and follow nonadherence will most likely result in her clinical deterioration and possible early . Will attempt to get her back into the pulmonary hypertension Specialty Clinic very soon with an appointment to follow updated echocardiogram and pulmonary function testing (testing requested to be performed within the next week). She reports she cannot drive to [place] for a pulmonary hypertensionclinic visit. Therefore, a telemedicine visit was requested. Follow-up: Return in about 4 weeks (around 11/28/2023). | Check-out note: 1 hour Telemedicine visit in Pulmonary hypertension clinc () - Next available slot. Know to both Milton & Jodee. TTE & PFTs done in the next week PRIOR TO Pulm Hypertension visit. Ray Rose DO [facility] Pulmonary Medicine, [address] [address] This note was completed using voice recognition software. Please excuse any word substitutions/deletions or similar errors documented in this encounter Nursing Notes * Nadia Dobbs LPN - 10/31/2023 11:54 AM EST Pt here for f/u PHTN. MMRC Dyspnea Scale = 1 (I get short of breath when hurrying on level ground or walking up a slight hill) PULMONARY HYPERTENSION WHO CLASSIFICATION 2 (Patient with pulmonary hypertension resulting in slight limitation of physical activity. They are comfortable at rest. Ordinary physical activity results in undue fatigue or dyspnea, chest pain, or heart syncope) Interm History/Respiratory Symptoms Cough: occasional, dry Hemoptysis: no Sinus Symptoms: drainage Hospitalizations: no ED Trips: no Triggers: cold air Nocturnal: occasional cough CPAP/BiPAP/O2: no Flu Vaccine: 2022 Pneumovax: 2019 Prevnar: no COVID 19: no documented in this encounter Plan of Treatment Upcoming Encounters Date Type Department Care Team (Latest Contact Info) Description 4 9:00 AM EST Office Visit Hematology/Onco logy Elma Francois [place] [address] [place] [address] Tammy Hammond CRNP [address] [place] [address] 4 9:00 AM EST Office Visit Rheumatology [facility] [address] [facility] [place] [address] Maico Carrillo CRNP [address] [facility] [place] [address] 4 8:00 AM EDT Hospital Encounter ENDO [facility], Endoscopy Room [facility] [address] [place] [id number] Favian Escalante MD [address] [place] [address] 4 8:00 AM EDT - 4 9:00 AM EDT Surgery ENDO [facility], Endoscopy Room [facility] [address] [place] [id number] Favian Escalante MD [address] [place] [address] ESOPHAGOGASTRODUODENOSCOPY (EGD), FLEXIBLE, TRANSORAL, ENDOSCOPIC ULTRASOUND 4 7:15 AM EDT Cardiac Studies Cardiac Studies, [facility] [address] [place] [address] 4 8:30 AM EDT PulmDiagnostic Pulmonary Function Lab, [facility] [address] [place] [address] [address], [address] [place] [address] 4 11:40 AM EDT Office Visit Hepatology, [facility] [address] [place] [address] Evangelina Dorado Vanesa, DO [address] [place] [address] 4 1:00 PM EDT Office Visit Family [facility] [address] [place] [address] Sarah Galaviz, DO [address] [place] [address] Scheduled Orders Name Type Priority Associated Diagnoses Orde r Schedule ECHO, COMPLETE (2D), TRANS-THORACIC Echocardiology Routine PHT (pulmonary hypertension) (HCC) Expected: 11/07/2023 (Approximate), Expires: 11/28/2025 SPIROMETRY B/A BRONCHODILATOR Procedures Routine Pulmonary hypertension (HCC) Expected: 11/07/2023, Expires: 11/28/2024 LUNG VOLUMES (PLETHYSMOGRAPHY) Procedures Routine Pulmonary hypertension (HCC) Expected: 11/07/2023, Expires: 11/28/2024 DIFFUSION CAPACITY (DLCO) Procedures Routine Pulmonary hypertension (HCC) Expected: 11/07/2023, Expires: 11/28/2024 PULMONARY STRESS TESTING Procedures Routine Pulmonary hypertension (HCC) Expected: 10/31/2023, Expires: 11/28/2024 Scheduled Procedures Name Priority Associated Diagnoses Date/Ti me ESOPHAGOGASTRODUODENOSCOPY ( EGD), FLEXIBLE, TRANSORAL, ENDOSCOPIC ULTRASOUND Hepatic cirrhosis, unspecified hepatic cirrhosis type, unspecified whether ascites present (HCC) Anemia, unspecified type 12/11/2023 8:00 AM EDT Scheduled Referrals Name Type Priority Associated Diagnoses Orde r Schedule SLEEP MEDICINE REFERRAL OP Referral Within 10 days (routine) PHT (pulmonary hypertension) (HCC) Pulmonary hypertension (HCC) Ordered: 10/31/2023 Health Maintenance Due Date Last Done Comments [...] 10/15/2019 LUNG CANCER SCREENING - USE SMARTSET [id number] Completed 07/09/2019 Zoster Vaccines Completed 07/10/2020, 04/14/2020 [...] as of this encounter Visit Diagnoses Diagnosis PHT (pulmonary hypertension) (HCC)- Primary Other chronic pulmonary heart diseases Pulmonary hypertension (HCC) Other chronic pulmonary heart diseases Tobacco abuse, in remission Personal history of tobacco use, presenting hazards to health Pancytopenia (HCC) Other pancytopenia GENI positive Other and unspecified nonspecific immunological findings Environmental exposure Thrombocytopenia (HCC) Thrombocytopenia, unspecified Nocturnal hypoxemia Hypoxemia Sleep-disordered breathing Other sleep disturbances Hepatic cirrhosis, unspecified hepatic cirrhosis type, unspecified whether ascites present (HCC) Anemia, unspecified type documented in this encounter Care Teams Lead Warehouse Associate Relationship Specialty Start Date End Date Sarah Galaviz DO [address] [address] PCP - General Family Medicine 06/30/19 documented as of this encounter
--- OUTSIDE RECORDS SUMMARY | 2023-12-10 20:26 | External Medical Summary | Summary of Care ---
Author Name Unknown Organization [facility] Address [address] [place] [address] Phone [phone] Care Team Providers Care Tobacco Flavorer Name Role Phone Saarh Galaviz DO Primary Care Provider [phone] Reason for Visit * Auth/Cert Specialty Diagnoses / Procedures Referred By Mechelle t Referred To Contact Diagnoses Hepatic cirrhosis, unspecified hepatic cirrhosis type, unspecified whether ascites present (HCC) Anemia, unspecified type Hepatic cirrhosis, unspecified hepatic cirrhosis type, unspecified whether ascites present (HCC) [K74.60] Anemia, unspecified type [D64.9] Procedures EGD, W/ENDOSCOPIC US ESOPHAGOGASTRODUODENOSCOPY (EGD), FLEXIBLE, TRANSORAL, ENDOSCOPIC ULTRASOUND Referral ID Status Reason Start Date Expiration Date Visits Re quested Visits Authorized [id number] Encounter Details Date Type Department Care Team (Latest Contact Info) Description 10/16/2023 8:05 AM EST - 10/16/2023 8:46 AM [facility] Hospital Encounter ENDO [facility], Endoscopy Room [facility] [address] [phone] Favian Escalante MD [address] [address] Discharge Disposition: Home - Self Care Allergies No known active allergiesdocumented as of this encounter (statuses as of 10/16/2023) Medications Medication Sig Dispensed Refills Start Date [...] for Revatio. 90 Tablet 11 09/23/2023 Active documented as of this encounter (statuses as of 10/16/2023) Active Problems Problem Noted Date Diagnosed Date Unspecified cirrhosis of liver 04/14/2020 Thrombocytopenia 10/15/2019 GENI positive 07/07/2019 PHT (pulmonary hypertension) 07/06/2019 Overview: Suspected on Echocardiogram when Hgb low. 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 Secondhand smoke exposure 07/06/2019 Environmental exposure 07/06/2019 Overview: Chickens, Ducks Pancytopenia documented as of this encounter (statuses as of 10/16/2023) Immunizations Name Administration Dates Next Due Pneumococcal [...] Sign Reading Time Taken Comments Blood Pressure - - Pulse - - Temperature - - Respiratory Rate - - Oxygen Saturation - - Inhaled Oxygen Concentration - - Weight 84.8 kg (187 lb) 10/10/2023 10:02 AM EST Height 170.2 cm (5' 7") 10/10/2023 10:02 AM EST Body Mass Index 29.29 10/10/2023 10:02 AM EST documented in this encounter Nursing Notes * Zarina Miguel RN - 10/16/2023 8:45 AM EST Late entry: pt's procedure was cancelled today d/t pt reporting a "sore throat." Pt's temp was 98.8F. Decision was made by Dr. Jon and Dr. Escalante. Pt rescheduled for her EUS for December 11, 2023 with a 0715 arrival time. Pt made aware of this new appt and is agreeable. Escorted to the lobby by PACU staff. Dr. Jon encouraged pt to reach out to her PCP to r/o strep. documented in this encounter Plan of Treatment Upcoming Encounters Date Type Department Care Team (Latest Contact Info) Description 10/23/2023 10:40 AM EST Office Visit Hepatology, [facility] [address] [place] [address] Evangelina Dorado, DO [address] [place] [address] 10/31/2023 12:20 PM EST Office Visit Pulmonary Medicine, Health system [address] [place] [address] Ray Rose, DO [address] [place] [address] 11/06/2023 9:00 AM EST Office Visit Hematology/Oncol hazel [facility] [address] [place], [place] [address] Tammy Hammond CRNP [address] [facility] [place] [address] 11/13/2023 9:00 AM EST Office Visit Rheumatology [facility] [address] [place], [place] [address] Maico Carrillo CRNP [address] [facility] [place], [place] [address] 12/11/2023 8:00 AM EDT Hospital Encounter ENDO [facility], Endoscopy Room [facility] [address] [place] [phone] Favian Escalante MD [address] [place] [address] 12/11/2023 8:00 AM EDT - 12/11/2023 9:00 AM EDT Surgery ENDO [facility], Endoscopy Room [facility] [address] [place] [phone] Favian Escalante MD [address] [place] [address] ESOPHAGOGASTRODUODENOSCOPY (EGD), FLEXIBLE, TRANSORAL, ENDOSCOPIC ULTRASOUND 02/11/2024 1:00 PM EDT Office Visit [facility] [address] [place] [address] Sarah Galaviz DO [address] [place] [address] Scheduled Procedures Name Priority Associated Diagnoses Date/Ti me ESOPHAGOGASTRODUODENOSCOPY ( EGD), FLEXIBLE, TRANSORAL, ENDOSCOPIC ULTRASOUND Hepatic cirrhosis, unspecified hepatic cirrhosis type, unspecified whether ascites present (HCC) Anemia, unspecified type 10/16/2023 4:45 PM EST ESOPHAGOGASTRODUODENOSCOPY ( EGD), FLEXIBLE, TRANSORAL, ENDOSCOPIC ULTRASOUND [...] 1009/2017, 11/10/2010, Additional history exists Diabetes Screening 08/21/2026 08/21/2023, 1 10/13/2022, 08/05/2023, Additional history exists DTaP,Tdap,and Td Vaccines (2 - Td or Tdap) 10/15/2029 10/15/2019 LUNG CANCER SCREENING - USE SMARTSET [address]275 Completed 07/09/2019 Zoster Vaccines Completed 07/10/2020, 04/14/2020 Influenza Vaccine (FLU shot) Completed , 07/10/2020, 10/15/2019, Additional history exists GARDASIL-HPV IMMUNIZATION SERIES Aged Out No longer eligible based on patient's age to complete this topic MENINGOCOCCAL (MENACTRA/MENVEO) Aged Out No longer eligible based on patient's age to complete this topic documented as of this encounter Medical Devices Not on filedocumented as of this encounter Administered Medications Inactive Administered Medications - up to 3 most recent administrations Medication Order MAR Action Action Date Dose Rate Site isolyte-S pH 7.4 infusion Intravenous, at 100 mL/hr, Plasma-LYTE 148, isolyte-S, and isolyte-S pH 7.4 are considered equivalent - including for MAR barcode scanning., CONTINUOUS, Starting on Sharon 10/16/23 at 0845, Until Sharon 10/16/23 at 1309, Pre-Op documented in this encounter Active and Recently Administered Medications Times are shown in EST. Continuous Medication Order 10/14/2023 10/15/2023 10/16/2023 isolyte-S pH 7.4 infusion Intravenous, at 100 mL/hr, Plasma-LYTE 148, isolyte-S, and isolyte-S pH 7.4 are considered equivalent - including for MAR barcode scanning., CONTINUOUS, Starting on Sharon 10/16/23 at 0845, Until Sharon 10/16/23 at 1309, Pre-Op 0845 (Due) documented in this encounter Care Teams Tobacco Flavorer Relationship Specialty Start Date End Date Sarah Galaviz DO [address] [address] PCP - General Family Medicine 06/30/19 documented as of this encounter
--- OUTSIDE RECORDS SUMMARY | 2023-12-10 20:26 | External Medical Summary ---
Author Name Unknown Address Unknown Organization K0G:[facility] - [address] [place] [address] Laboratory Report Ordering Provider Test Date Status BRYAN RAUSCH 10/23/2023 11:14:57 Final Observation Date Value Abnormality Reference (Units ) Status SYNC LEUKOCYTES IN BLOOD BY AUTOMATED COUNT 10/23/2023 11:14:57 4.66 4.00-10.80 (K/uL) Final Segs 10/23/2023 11:14:57 56.1 40.0-75.0 (%) Final Lymphs % 10/23/2023 11:14:57 31.1 18.0-42.0 (%) Final Monos 10/23/2023 11:14:57 10.9 1.0-11.0 (%) Final Eosinophils 10/23/2023 11:14:57 1.5 0.0-6.0 (%) Final Basos 10/23/2023 11:14:57 0.4 0.0-2.0 (%) Final Absolute Segs 10/23/2023 11:14:57 2.61 1.80-7.70 (K/uL) Final Lymphs, absolute 10/23/2023 11:14:57 1.45 1.00-4.80 (K/ul) Final Monos, Abs 10/23/2023 11:14:57 0.51 0.00-1.10 (K/uL) Final Eos, Abs 10/23/2023 11:14:57 0.07 0.00-0.70 (K/uL) Final Basos, Abs 10/23/2023 11:14:57 0.02 0.00-0.20 (K/uL) Final Performing Location LABORATORY [facility] [address] [address] [place] [address]
--- OUTSIDE RECORDS SUMMARY | 2023-12-10 20:26 | External Medical Summary ---
Author Name Unknown Address Unknown Organization K01:[facility] - [address] [address] Laboratory Report Ordering Provider Test Date Status BRYAN RAUSCH 10/23/2023 11:14:57 Final Observation Date Value Abnormality Reference (Units ) Status Hep A, IgG and/or IgM 10/23/2023 11:14:57 Negative Negative Final Performing Location LAB[facility]ATORY [facility] - [address] [place] [address]
--- OUTSIDE RECORDS SUMMARY | 2023-12-10 20:26 | External Medical Summary ---
Author Name Unknown Address Unknown Organization [facility] - [address] [place] [address] Laboratory Report Ordering Provider Test Date Status BRYAN RAUSCH 10/23/2023 11:14:57 Final Observation Date Value Abnormality Reference (Units ) Status BUN 10/23/2023 11:14:57 12 6-20 (mg/dL) Final Creatinine 10/23/2023 11:14:57 0.8 0.5-1.0 (mg/dL) Final Glomerular filtration rate/1.73 sq M.predicted [Volume Rate/Area] in Serum, Plasma or Blood by Creatinine-based formula (CKD-EPI) 10/23/2023 11:14:57 84 >=60 (mL/min) Final eGFR is calculated based on the CKD-EPI 2020 equation SODIUM 10/23/2023 11:14:57 141 135-146 (m mol/L) Final Potassium 10/23/2023 11:14:57 3.7 3.5-5.1 (m mol/L) Final Cl 10/23/2023 11:14:57 107 98-107 (mm ol/L) Final CO2 10/23/2023 11:14:57 18 Below low normal 22- 32 (mmol/L) Final Anion gap 10/23/2023 11:14:57 16 Above high normal 7- 15 (mmol/L) Final Glucose 10/23/2023 11:14:57 102 70-120 (mg /dL) Final Calcium 10/23/2023 11:14:57 8.8 8.4-10.2 ( mg/dL) Final Performing Location LABORATORY [facility] [address] - [address] [place] [address]
--- OUTSIDE RECORDS SUMMARY | 2023-12-10 20:26 | External Medical Summary ---
Author Name Unknown Address Unknown Organization K0G:[facility] - [address] [place] [address] Laboratory Report Ordering Provider Test Date Status BRYAN RAUSCH 10/23/2023 11:14:57 Final Warfarin Therapy
INR: 2 .0-3.0 conventional anticoagulation
INR: 2.5- 3.5 high intensity anticoagulation Observation Date Value Abnormality Reference (Units ) Status PT 10/23/2023 11:14:57 15.9 Above high normal 11 .6-15.2 (seconds) Final INR 10/23/2023 11:14:57 1.3 Above high normal 0. 8-1.2 Final Performing Location [facility] [address] - [address] [place] [address]
--- OUTSIDE RECORDS SUMMARY | 2023-12-10 20:26 | External Medical Summary | Summary of Care ---
Author Name Unknown Organization [facility] Address [address] [facility] [address] Phone [phone] Care Team Providers Care Firesetter Name Role Phone Sarah Galaviz DO Primary Care Provider [phone] Reason for Visit * Reason Comments Consultation Pancytopenia * Evaluate & Treat - Unlimited Visits (Within 10 days (routine)) - Pending Review Specialty Diagnoses / Procedures Referred By Mechelle espinosa Referred To Contact Hematology/Oncology / Hematology Oncology Diagnoses Thrombocytopenia (HCC) Pancytopenia (HCC) Deepa French DO [address] [place] [address] Referral ID Status Reason Start Date Expiration Date Visits Requested Visits Authorized [id number] Pending Review Specialty Services Required [phone] Encounter Details Date Type Department Care Team (Late st Contact Info) Description 08/21/2023 3:30 PM EST [facility] [place] [address] [place] [address] Tammy Hammond CRNP [address] [facility] [place] [address] Pancytopenia (HCC)*; Thrombocytopenia (HCC); Anemia, unspecified type; GENI positive Allergies No known active allergiesdocumented as of this encounter (statuses as of 08/30/2023) Medications Medication Sig Dispensed Refills Start Date [...] mouth daily. 30 Tablet 11 10/01/2021 Active Sildenafil Citrate 20 MG Oral Tablet (Revatio)Indications :PHT (pulmonary hypertension) (HCC) Take 1 Tablet by mouth in the morning and 1 Tablet at noon and 1 Tablet before bedtime. 90 Tablet 11 10/23/2022 Active Potassium Chloride Sheron ER 20 MEQ [...] the morning. 30 Tablet 2 08/21/2023 Active Hospital, Clinic, or Other Facility Administered Medication Ordered Dose Route Frequency Start Date End Date Status albuterol sulfate (PROVENTIL) (2.5 MG/3ML) 0.083% inhalation solution 2.5 mgIndications:PHT (pulmonary hypertension) (HCC),Tobacco abuse, in remission,Pancytopenia (HCC),Environmental exposure,Secondhand smoke exposure 2.5 mg NEBULIZER Q4H PRN 07/08/2019 Active documented as of this encounter (statuses as of 08/30/2023) Active Problems Problem Noted Date Diagnosed Date Unspecified cirrhosis of liver 04/14/2020 Thrombocytopenia 10/15/2019 GENI positive 07/07/2019 PHT (pulmonary hypertension) 07/06/2019 Overview: Suspected on Echocardiogram when Hgb low. 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 Secondhand smoke exposure 07/06/2019 Environmental exposure 07/06/2019 Overview: Chickens, Ducks Pancytopenia documented as of this encounter (statuses as of 08/30/2023) Immunizations Name Administration Dates Next Due Pneumococcal [...] Sign Reading Time Taken Comments Blood Pressure 123/81 08/21/2023 3:30 PM EST Pulse 90 08/21/2023 3:30 PM EST Temperature - - Respiratory Rate 16 08/21/2023 3:30 PM EST Oxygen Saturation 94% 08/21/2023 3:30 PM EST Inhaled Oxygen Concentration - - Weight 84.8 kg (187 lb) 08/21/2023 3:30 PM EST Height 168.9 cm (5' 6.5") 08/21/2023 3:30 PM EST Body Mass Index 29.73 08/21/2023 3:30 PM EST documented in this encounter Progress Notes * Tammy Hammond, WINSTON - 08/21/2023 3:45 PM EST Images from the original note were not included. Hematology/Oncology Outpatient Clinic note [facility] [address] [facility] [address] [place], [place] [address] Name: Marianne Chand Date: 08/21/2023 REFERRED BY: Dr. Deepa French CHIEF COMPLAINT: Marianne Chand is a 62 year old female here today for new consultation for pancytopenia. HISTORY OF PRESENT ILLNESS: Previous patient of [...] 1 (H) 1 (H) Was seen in [facility] ED in July for unexplained jaundice [...] Is having some increased weakness and fatigue. [place] this all started when she started letairis for pulmonary HTN. Unknown etiology. Follows with provider at [facility]. Never had liver biopsy that was recommended [...] Vitamin B12 482 232 - 1,245 pg/mL Patient's past medical history, social history, and family history were reviewed and updated. Past Medical History: Diagnosis Date Allergic rhinitis Anxiety state ? anxiety attack. Environmental exposure 07/06/2019 Chickens, Ducks Pancytopenia (HCC) PHT (pulmonary hypertension) (HCC) 07/06/2019 Suspected on Echocardiogram when Hgb low. 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 Family History Problem Relation Age of Onset Diabetes Father mild stroke. Hypertension Father Heart Disorder Father bypass Stroke Father Diabetes Brother Heart Disorder Mother bypass Alzheimer's disease Mother Asthma Mother Other (Other) Other No h/o cancer, neurological problems Other (Healthy) Son Other (Healthy) Daughter Endocrine Disorder Sister thyroid Social History Socioeconomic History Marital status: Spouse name: Not on file Number of children: Not on file Years of education: Not on file Highest education level: Not on file Occupational History Not on file Tobacco Use Smoking status: Former Packs/day: 1.00 Years: 20.00 Additional pack years: 0.00 Total pack years: 20.00 Types: Cigarettes Start date: 1980 Quit date: 05/27/2019 Years since quittin.2 Smokeless tobacco: Never Tobacco comments: stopped smoking [...] Tablet by mouth daily. 30 Tablet 11 Sildenafil Citrate 20 MG Oral Tablet (Revatio) Take 1 Tablet by mouth in the morning and 1 Tablet at noon and 1 Tablet before bedtime. 90 Tablet 11 Potassium Chloride Sheron ER 20 [...] needed (chest tightness, sob). 18 g 1 Current Facility-Administered Medications Medication Dose Route Frequency Provider Last Rate Last Admin albuterol sulfate (PROVENTIL) (2.5 MG/3ML) 0.083% inhalation solution 2.5 mg 2.5 mg Nebulizer Q4H PRN Ray Rose DO 2.5 mg at 07/09/19 1459 REVIEW OF SYSTEMS: SEE HPI - otherwise negative OBJECTIVE: Filed Vitals: 08/21/23 1530 BP: 123/81 Pulse: 90 Resp: 16 SpO2: 94% Weight: 84.8 kg (187 lb) Height: 1.689 m (5' 6.5") Wt Readings from Last 5 Encounters: 08/21/23 84.8 kg (187 lb) 08/13/23 83.5 kg (184 lb) 08/05/23 83 kg (183 lb) 04/20/21 80.6 kg (177 lb 12.8 oz) 12/01/20 89.4 kg (197 lb) PHYSICAL EXAM: Constitutional: no acute distress Neuro: alert, oriented to person, place, and time, gait normal HEENT: normocephalic, atraumatic; +scleral icterus, neck with no masses or tenderness; no cervical/supraclavicular lymphadenopathy CV: normal rate and rhythm, no murmur Chest: normal respiratory effort, lungs clear to auscultation Abdomen: soft, bowel sounds normal, no masses or tenderness; spleen tip palpable Extremities: +nonpitting BLE edema Skin: +jaundice LABS: Results for orders placed or performed in [...] Vitamin B12 482 232 - 1,245 pg/mL IMPRESSION: Anemia and thrombocytopenia: 62 y/o female with GENI positive arthritis, fatty liver disease, celiac disease and pulmonary HTN. Previously followed with Dr. Ritchie for anemia. Last seen in 2019. 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 Was LTF during pandemic with all specialists. Was seen in [facility] ED in July for unexplained jaundice and a bad cough. Had back pain with this cough. This is when worsening anemia was discovered. Hgb dropped into the 8 range, normocytic indices. Platelet count 72K - this is chronic for patient. AST 56, Alk phos 145, total bilirubin 10.2. Abs retic elevated at 149.2. Iron deficiency present with ferritin of 25. Folic acid, vitamin b12 and TSH WNL. CT A/P 08/05/23: Referral to reestablish with [...] Is having some increased weakness and fatigue. [place] this all started when she started letairis for pulmonary HTN. Unknown etiology. Follows with provider at [facility]. Never had liver biopsy that was recommended by hepatology previously completed d/t pandemic and resolution of anemia. Denies melena, hematochezia or hematuria. Denies constipation of diarrhea. Negative FOBT. Denies nausea or vomiting, abdominal pain, bloating or early satiety. Does not smoke or drink alcohol. Denies any family history of cancer or blood disorders. PLAN: Concerned for possible hemolysis with anemia, splenomegaly, elevated total bilirubin and elevated abs retic count. Lab orders placed to be completed today include cbc/diff, cmp, iron screen, ferritin, haptoglobin, retic count, ldh, review for schistocytes, cold hemagglutinins, spep, serum flc, immunoglobulin quant, direct bilirubin, direct alexi and PNH flow. Consider for repeat peripheral smear Prescription placed for folic acid 1 mg daily for patient to start. Follow up with other specialists as recommended Will hold on iron infusion until hemolysis work up completed. RTC pending lab results WINSTON Gomez documented in this encounter Nursing Notes * Yuliana Jorge CMA - 08/21/2023 3:30 PM EST Patient identifed by name and birthdate Do you have any concerns about pain management for today's visit? No Living Will or Advance Directive for Health Care as noted on the problem list. [facility] is a way you can talk to your provider on line through e-mail. Would you like to sign up? I can activate it for you? ALREADY ACTIVE Filed Vitals: 08/21/23 1530 BP: 123/81 Pulse: 90 Resp: 16 SpO2: 94% Weight: 84.8 kg (187 lb) Height: 1.689 m (5' 6.5") Patient was instructed to not get up [...] Department Care Team (Latest Contact Info) Description 09/27/2023 3:45 PM EST [facility] [address] [place] [address] 10/16/2023 8:45 AM EST Hospital Encounter ENDO OSSC, Endoscopy Room [facility] [address] [place] [id number] Favian Escalante MD [address] [place] [address] 10/16/2023 8:45 AM EST - 10/16/2023 9:30 AM EST Surgery ENDO OSSC, Endoscopy Room [facility] [address] [place] [phone] Favian Escalante MD [address] [place] [address] ESOPHAGOGASTRODUODENOSCOPY (EGD), FLEXIBLE, TRANSORAL, ENDOSCOPIC ULTRASOUND 10/23/2023 10:40 AM EST Office Visit Hepatology, [facility] [address] [facility] [place] [address] Evangelina Dorado DO [address] [facility] [place] [address] 10/31/2023 12:20 PM EST Office Visit Pulmonary Medicine, [facility] [address] [facility] [place] [address] Ray Rose, DO [address] [facility] [place], [place] [address] 11/13/2023 9:00 AM EST Office Visit Rheumatology [place] [address] [employer] [place] [address] Maico Carrillo CRNP [facility] [facility] [place] [address] 02/11/2024 1:00 PM EDT Office Visit Family [facility] [address] [place] [address] Sarah Galaviz DO [address] [place] [address] Pending Results Name Type Priority Associated Diagnoses Date /Time PNH WITH FLAER (HIGH SENSITIVITY) Lab Routine Pancytopenia (HCC) Thrombocytopenia (HCC) Anemia, unspecified type GENI positive 08/26/2023 11:02 AM EST Scheduled Procedures Name Priority Associated Diagnoses Date/Ti me ESOPHAGOGASTRODUODENOSCOPY ( EGD), FLEXIBLE, TRANSORAL, ENDOSCOPIC ULTRASOUND Hepatic cirrhosis, unspecified hepatic cirrhosis type, unspecified whether ascites present (HCC) Anemia, unspecified type 10/16/2023 8:45 AM EST Health Maintenance Due Date Last Done Comments [...] 10/15/2019 LUNG CANCER SCREENING - USE SMARTSET 16702 Completed 07/09/2019 Zoster Vaccines Completed 07/10/2020, 04/14/2020 [...] filedocumented as of this encounter Results * (ABNORMAL) BILIRUBIN, DIRECT (08/21/2023 4:51 PM EST) Bilirubin, Direct 0.7(H) 0.0 - 0.3 mg/dL 08/21/2023 10:10 PM EST [facility] Blood Venous blood specimen / Unknown Venipuncture / Unknown 08/21/2023 4:51 PM EST 08/21/2023 4:51 PM EST Tammy MONTERO LAB BLOOD ORDER [place] Performing Organization Address City/[facility]/ZIP Co de Phone Number [facility] [address] [place] [address] * (ABNORMAL) IMMUNOGLOBULIN QUANTITATIVE (08/21/2023 4:51 PM EST) IgG 1,702(H) 700 - 1,600 mg/dL 08/21/2023 10:49 PM EST [facility] IgA 505(H) 70 - 400 mg/dL 08/21/2023 10:49 PM EST [facility] IgM 462(H) 40 - 230 mg/dL 08/21/2023 10:49 PM EST [facility] Blood Venous blood specimen / Unknown Venipuncture / Unknown 08/21/2023 4:51 PM EST 08/21/2023 4:51 PM EST Tammy MONTERO LAB BLOOD ORDER [place] Performing Organization Address [facility]/ZIP Co de Phone Number [facility] [address] [place] [address] * (ABNORMAL) SERUM FREE LIGHT CHAINS (08/21/2023 4:51 PM EST) [place] Free Light Chains, Serum 37.80(H) 3.30 - 19.40 mg/L 08/22/2023 10:30 AM EST [facility] Lambda Free Light Chains, Serum 39.05(H) 5.71 - 26.30 mg/L 08/22/2023 10:30 AM EST [facility] [place] Lambda Free Light Chains Ratio 0.97 0.26 - 1.65 08/22/2023 10:30 AM EST [facility] Blood Venous blood specimen / Unknown Venipuncture / Unknown 08/21/2023 4:51 PM EST 08/21/2023 4:51 PM EST Tammy MONTERO LAB BLOOD ORDER [place] LABORATORY [facility] [address] [place] [address] * (ABNORMAL) SERUM PROTEIN ELECTROPHORESIS REFLEX PROFILE (08/21/2023 4:51 PM EST) Pathologist [facility] Normal/Abnormal Normal Normal 5:36 PM EST [facility] Protein 7.2 6.0 - 8.3 g/dL 08/22/2023 5:36 PM EST [facility] Albumin 3.24(L) 3.30 - 4.40 g/dL 08/22/2023 5:36 PM EST [facility] Alpha-1 Globulin 0.31(H) 0.10 - 0.30 g/dL 08/22/2023 5:36 PM EST [facility] Alpha-2 Globulin 0.61 0.60 - 1.00 g/dL 08/22/2023 5:36 PM EST [facility] Beta-Globulin 0.91 0.80 - 1.30 g/dL 08/22/2023 5:36 PM EST [facility] Gamma-Globulin 2.13(H) 0.70 - 1.70 g/dL 08/22/2023 5:36 PM EST [facility] Electrophoresis Interpretation No paraprotein detected. There is a polyclonal increase in the gamma fraction. This finding may be seen in association with chronic inflammation, infection, chronic liver disease or collagen disorders. 08/22/2023 5:36 PM EST LABORATORY [facility] Blood Venous blood specimen / Unknown Venipuncture / Unknown 08/21/2023 4:51 PM EST 08/21/2023 4:51 PM EST Tammy Amy MONTERO LAB BLOOD ORDER [place] Performing Organization Address City/[facility]/ZIP Co de Phone Number LABORATORY [facility] [address] [place] [address] * DIRECT ALEXI (08/21/2023 4:51 PM EST) Pathologist [facility] Direct Alexi Negative 08/21/2023 10:37 PM EST LABORATORY [facility] BLOOD BANK Blood Venous blood specimen / Unknown Venipuncture / Unknown 08/21/2023 4:51 PM EST 08/21/2023 4:51 PM EST Tammy MONTERO LAB BLOOD BANK TEST ORDERABLES Performing Organization Address [facility] Co de Phone Number LABORATORY [facility] BLOOD BANK [address] [place] [address] * COLD HEMAGGLUTININS (08/21/2023 4:51 PM EST) [facility] Cold Hemagglutinins SEE BELOW 08/25/2023 5:15 PM EST [facility] Comment: Cold Hemagglutinins None Detected Titer Reference range: None Detected Test Performed at: [facility] [address] [address] Chevy Marin M.D., Ph.D.,Director of Laboratories Blood Venous blood specimen / Unknown Venipuncture / Unknown 08/21/2023 4:51 PM EST 08/21/2023 4:51 PM EST Tammy MONTERO LAB BLOOD ORDER [place]ARIO Performing Organization Address City/[facility]/ZIP Co de Phone Number [facility] [address] [place] [address] * LD (08/21/2023 4:51 PM EST) LD 176 <=250 U/L 08/21/2023 10:10 PM EST [facility] Blood Venous blood specimen / Unknown Venipuncture / Unknown 08/21/2023 4:51 PM EST 08/21/2023 4:51 PM EST Tammy MONTERO LAB BLOOD ORDER DEMARIO Performing Organization Address [facility]/ZIP Co de Phone Number LABORATORY [facility] [address] [place] [address] * (ABNORMAL) RETICULOCYTE PANEL (08/21/2023 4:51 PM EST) Reticulocyte Percent 5.77(H) 0.80 - 1.90 % 08/21/2023 10:37 PM EST [facility] Absolute Reticulocyte 196.2(H) 31.3 - 100.1 K/uL 08/21/2023 10:37 PM EST [facility] Immature Reticuloctye Fraction 34.6(H) 2.5 - 20.6 % 08/21/2023 10:37 PM EST [facility] Reticulocyte Hemoglobin 24.8(L) 29.7 - 37.4 pg 08/21/2023 10:37 PM EST LABORATORY C Blood Venous blood specimen / Unknown Venipuncture / Unknown 08/21/2023 4:51 PM EST 08/21/2023 4:51 PM EST Tammy MONTERO LAB BLOOD ORDER [place]ARIO Performing Organization Address [facility]/ZIP Co de Phone Number LABORATORY [facility] [address] [place] [address] * (ABNORMAL) HAPTOGLOBIN (08/21/2023 4:51 PM EST) Haptoglobin 14(L) 30 - 200 mg/dL 08/21/2023 10:49 PM EST LABORATORY C Blood Venous blood specimen / Unknown Venipuncture / Unknown 08/21/2023 4:51 PM EST 08/21/2023 4:51 PM EST Tammy MONTERO LAB BLOOD ORDER DEMARIO Performing Organization Address [facility] Co de Phone Number LABORATORY [facility] [address] [place] [address] * FERRITIN (08/21/2023 4:51 PM EST) Ferritin 18 13 - 150 ng/mL 08/22/2023 3:25 AM EST LABORATORY C Comment:Postmenopausal women have higher ferritin levels than pre-menopausal women. The above reference interval is based on pre-menopausal women. Blood Venous blood specimen / Unknown Venipuncture / Unknown 08/21/2023 4:51 PM EST 08/21/2023 4:51 PM EST Tammy Godoyfaizan MONTERO LAB BLOOD ORDER [place] Performing Organization Address [facility] de Phone Number LABORATORY [facility] [address] [place] [address] * (ABNORMAL) IRON SCREEN, INCLUDING TIBC (08/21/2023 4:51 PM EST) Pathologist [facility] Iron 49 33 - 151 ug/dL 08/21/2023 10:10 PM EST LABORATORY [facility] Iron Binding Capacity 396 250 - 425 ug/dL 08/21/2023 10:10 PM EST LABORATORY [facility] Transferrin Saturation Percent 12(L) 15 - 55 % 08/21/2023 10:10 PM EST LABORATORY [facility] Blood Venous blood specimen / Unknown Venipuncture / Unknown 08/21/2023 4:51 PM EST 08/21/2023 4:51 PM EST Tammy MONTERO LAB BLOOD ORDER [place]ARIO Performing Organization Address [facility] de Phone Number LABORATORY [facility] [address] [place] [address] * (ABNORMAL) COMPREHENSIVE METABOLIC PANEL (08/21/2023 4:51 PM EST) BUN 12 6 - 20 mg/dL 08/21/2023 10:10 PM EST [facility] Creatinine 0.9 0.5 - 1.0 mg/dL 08/21/2023 10:10 PM EST [facility] Estimated Glomerular Filtration Rate 75 >=60 mL/min 08/21/2023 10:10 PM EST [facility] Comment:eGFR is calculated b ased on the CKD-EPI 2020 equation Sodium 141 135 - 146 mmol/L 08/21/2023 10:10 PM EST [facility] Potassium 3.5 3.5 - 5.1 mmol/L 08/21/2023 10:10 PM EST [facility] Chloride 107 98 - 107 mmol/L 08/21/2023 10:10 PM EST [facility] CO2 19(L) 22 - 32 mmol/L 08/21/2023 10:10 PM EST [facility] Anion Gap 15 7 - 15 mmol/L 08/21/2023 10:10 PM EST [facility] Glucose 89 70 - 120 mg/dL 08/21/2023 10:10 PM EST [facility] Albumin 4.2 3.8 - 5.0 g/dL 08/21/2023 10:10 PM EST [facility] AST 36(H) 10 - 35 U/L 08/21/2023 10:10 PM EST [facility] Alkaline Phosphatase 130 35 - 130 U/L 08/21/2023 10:10 PM EST [facility] Bilirubin, Total 8.3(H) <=1.2 mg/dL 08/21/2023 10:10 PM EST [facility] Calcium 8.9 8.4 - 10.2 mg/dL 08/21/2023 10:10 PM EST [facility] Protein 7.2 6.0 - 8.3 g/dL 08/21/2023 10:10 PM EST [facility] ALT 35 10 - 35 U/L 08/21/2023 10:10 PM EST [facility] Blood Venous blood specimen / Unknown Venipuncture / Unknown 08/21/2023 4:51 PM EST 08/21/2023 4:51 PM EST Tammy MONTERO LAB BLOOD ORDER [place]AR[place] [facility] [address] [place] [address] documented in this encounter Visit Diagnoses Diagnosis Pancytopenia (HCC)- Primary Other pancytopenia Thrombocytopenia (HCC) Thrombocytopenia, unspecified Anemia, unspecified type GENI positive Other and unspecified nonspecific immunological findings Hepatic cirrhosis, unspecified hepatic cirrhosis type, unspecified whether ascites present (HCC) Anemia, unspecified type documented in this encounter Care Teams Firesetter Relationship Specialty Start Date End Date Sarah Galaviz DO [address] [place] [address] PCP - General Family Medicine 06/30/19 documented as of this encounter
--- OUTSIDE RECORDS SUMMARY | 2023-12-10 20:26 | External Medical Summary ---
Author Name Unknown Address Unknown Organization [id number]:LABORATORY [facility] [place] [address] [place] [address] Laboratory Report Ordering Provider Test Date Status BRYAN RAUSCH 10/23/2023 11:14:57 Final Observation Date Value Abnormality Reference (Units ) Status Nucleated erythrocytes/100 leukocytes [Ratio] in Blood by Automated count 10/23/2023 11:14:57 Final Performing Location LABORATORY [facility] [place] [address] [place] [address]
--- OUTSIDE RECORDS SUMMARY | 2023-12-10 20:26 | External Medical Summary | Summary of Care ---
Author Name Unknown Organization [facility] Address [address] [facility] [place] [address] Phone [phone] Care Team Providers Care Director Of Audiology Name Role Phone Sarah Galaviz DO Primary Care Provider [phone] Reason for Visit * Reason Onset Date Comments Test Results 09/29/2023 Unexpected or In determinate Result Encounter Details Date Type Department Care Team (Late st Contact Info) Description 09/29/2023 Telephone Family Practice [facility] [address] [place] [address] Deepa French DO [address] [place] [address] Test Results (Unexpected or Indeterminate ... Allergies No known active allergiesdocumented as of this encounter (statuses as of 09/29/2023) Medications Medication Sig Dispensed Refills Start Date [...] the morning. 30 Tablet 2 08/21/2023 Active Sildenafil Citrate 20 MG Oral Tablet [...] as of this encounter (statuses as of 09/29/2023) Active Problems Problem Noted Date Diagnosed Date Unspecified cirrhosis of liver 04/14/2020 Thrombocytopenia 10/15/2019 GENI positive 07/07/2019 PHT (pulmonary hypertension) 07/06/2019 Overview: Suspected on Echocardiogram when Hgb low. 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 Secondhand smoke exposure 07/06/2019 Environmental exposure 07/06/2019 Overview: Chickens, Ducks Pancytopenia documented as of this encounter (statuses as of 09/29/2023) Immunizations Name Administration Dates Next Due Pneumococcal [...] encounter Miscellaneous Notes * Telephone Encounter - Adela Recinos OSA - 09/29/2023 1:31 PM EST Hello- The radiologist discovered an unexpected or indeterminate finding on Marianne Chand ([id number]) and asks that you review the following report. Study Type:MRI ABDOMEN WO CONTRAST Date of Study: 09/27/2023 IMPRESSION: Hepatic cirrhosis. No obvious suspicious hepatic mass on this noncontrast study. Correlate clinically for chronic liver disease and HCC surveillance recommended. Mild splenomegaly. Heterogeneous patchy marrow signal of the visualized spine that also drops on out of phase imaging.Findings favored to represent red marrow reconversion from anemia. Correlate clinically for other etiologies such as multiple myeloma. Please respond to this encounter to acknowledge receipt of this message and take responsibility to ensure this report is reviewed. Thank you, BOGDAN Villagomez Client Service Rep [facility] documented in this encounter Plan of Treatment Upcoming Encounters Date Type Department Care Team (Latest Contact Info) Description 10/16/2023 8:45 AM EST Hospital Encounter ENDO [facility], Endoscopy Room [facility] [address] [facility] [place] [address] Favian Escalante MD [address] [place] [address] 10/16/2023 8:45 AM EST - 10/16/2023 9:30 AM EST Surgery ENDO [facility], Endoscopy Room [facility] [address] [place] [address] Favian Escalante MD [address] [place] [address] ESOPHAGOGASTRODUODENOSCOPY (EGD), FLEXIBLE, TRANSORAL, ENDOSCOPIC ULTRASOUND 10/23/2023 10:40 AM EST Office Visit Hepatology, [facility] [address] [place] [address] Evangelina Dorado, DO [address] [place] [address] 10/31/2023 12:20 PM EST Office Visit Pulmonary Medicine, [facility] [address] [facility] [place] [address] Ray Rose, DO [address] [place] [address] 11/13/2023 9:00 AM EST Office Visit Rheumatology [place] 464940 [facility] [place] [address] Maico Carrillo CRNP [facility] [place] [address] 02/11/2024 1:00 PM EDT Office Visit Family Practice [facility] [address] [place] [address] Sarah Galaviz, DO [address] [facility] [place] [address] Scheduled Procedures Name Priority Associated Diagnoses Date/Ti [...] 10/15/2019 LUNG CANCER SCREENING - USE SMARTSET 89010 Completed 07/09/2019 Zoster Vaccines Completed 07/10/2020, 04/14/2020 [...] as of this encounter Care Teams Director Of Audiology Relationship Specialty Start Date End Date Sarah Galaviz DO [address] [place] [address] PCP - General Family Medicine 06/30/19 documented as of this encounter
--- OUTSIDE RECORDS SUMMARY | 2023-12-10 20:26 | External Medical Summary | Summary of Care ---
Author Name Unknown Organization [facility] Address [address] [facility] [place] [address] Phone [phone] Care Team Providers Care Optical Glass Wet Inspector Name Role Phone Sarah Galaviz DO Primary Care Provider [phone] Reason for Visit * Reason Onset Date Comments Test Results 09/29/2023 Unexpected or In determinate Result Encounter Details Date Type Department Care Team (Late st Contact Info) Description 09/29/2023 Telephone Family Practice [facility] [address] [place] [address] Deepa French DO [address] [place] [address] Test Results (Unexpected or Indeterminate ... Allergies [...] unexpected or indeterminate finding on Marianne Chand ([id number]) and asks that you review the following [...] Thank you, BOGDAN Villagomez Client Service Rep [facility] documented in this encounter Plan of Treatment Upcoming Encounters Date Type Department Care Team (Latest Contact Info) Description 10/16/2023 8:45 AM EST Hospital Encounter ENDO [facility], Endoscopy Room [facility] 132 [facility] [place] [address] Favian Escalante MD [address] [place] [address] 10/16/2023 8:45 AM EST - 10/16/2023 9:30 AM EST Surgery ENDO [facility], Endoscopy Room [facility] [address] [place] [address] Favian Escalante MD [address] [place] [address] ESOPHAGOGASTRODUODENOSCOPY (EGD), FLEXIBLE, TRANSORAL, ENDOSCOPIC ULTRASOUND 10/23/2023 10:40 AM EST Office Visit Hepatology, [facility] [address] [place] [address] Evangelina Dorado, DO [address] [place] [address] 10/31/2023 12:20 PM EST Office Visit Pulmonary Medicine, [facility] 132 [facility] [place] [address] Ray Rose, DO [address] [place] [address] 11/13/2023 9:00 AM EST Office Visit Rheumatology [place] [id number] [facility] [place] [address] Maico Carrillo CRNP [facility] [place] [address] 02/11/2024 1:00 PM EDT Office Visit Family Practice [facility] [address] [place] [address] Sarah Galaviz, DO [address] [facility] [place] [address] Scheduled Procedures Name Priority Associated Diagnoses Date/Ti [...] 10/15/2019 LUNG CANCER SCREENING - USE SMARTSET 81255 Completed 07/09/2019 Zoster Vaccines Completed 07/10/2020, 04/14/2020 [...] filedocumented as of this encounter Care Teams Optical Glass Wet Inspector Relationship Specialty Start Date End Date Sarah Galaviz DO [address] [place] [address] PCP - General Family Medicine 06/30/19 documented as of this encounter
--- OUTSIDE RECORDS SUMMARY | 2023-12-10 20:26 | External Medical Summary ---
Author Name Unknown Address Unknown Organization K01:[facility] [place] [address] [facility] [address] [place] [address] Laboratory Report Ordering Provider Test Date Status BRYAN RAUSCH 10/23/2023 11:14:57 Final Observation Date Value Abnormality Reference (Units ) Status Hepatitis B virus core Ab [Presence] in Serum 10/23/2023 11:14:57 Negative Negative Final Performing Location LABORATORY C - [address] [place] [address]
--- OUTSIDE RECORDS SUMMARY | 2023-12-10 20:26 | External Medical Summary | Summary of Care ---
Author Name Unknown Organization [facility] Address [address] [place] [address] Phone [phone] Care Team Providers Care Hydroelectric Plant Maintainer Name Role Phone Mariangel Palma DO Primary Care Provider [phone] Reason for Visit * Reason Comments eRx-Medication Refill Encounter Details Date Type Department Care Team (Late st Contact Info) Description 09/22/2023 Refill Family Practice [facility] [address] [place] [address] Mariangel Palma DO [address] [place] [address] PHT (pulmonary hypertension) ([facility]) Allergies No known active allergiesdocumented as of this encounter (statuses as of 09/23/2023) Medications Medication Sig Dispensed Refills Start Date [...] Sheron ER 20 MEQ Oral Tablet Extended ReleaseIndication s:Essential hypertension with goal blood pressure less than 130/80 Take 1 Tablet by mouth in the morning. 30 Tablet 11 12/09/2022 Active Furosemide 20 MG Oral Tablet (Lasix) Take 1 TABLET BY MOUTH in the morning. 30 Tablet 5 06/20/2023 Active Albuterol Sulfate HFA 108 (90 Base) MCG/ACT Inhalation Aerosol SolutionIndicatio ns:Acute bronchitis, antibiotics not indicated Inhale 2 Puffs by mouth every 6 hours as needed (chest tightness, sob). 18 g 1 08/13/2023 Active Folic Acid 1 MG Oral TabletIndications :Pancytopenia (HCC) Take 1 Tablet by mouth in the morning. 30 Tablet 2 08/21/2023 Active Sildenafil Citrate 20 MG Oral Tablet (Revatio)Indicati ons:PHT (pulmonary hypertension) (HCC) Take 1 tablet in the morning, 1 tablet at noon, and 1 tablet before bedtime. Generic for Revatio. 90 Tablet 11 09/23/2023 Active Sildenafil Citrate 20 MG Oral Tablet (Revatio)Indicati ons:PHT (pulmonary hypertension) (HCC) Take 1 Tablet by mouth in the morning and 1 Tablet at noon and 1 Tablet before bedtime. 90 Tablet 11 10/23/2022 4 Discontinued Hospital, Clinic, or Other Facility Administered Medication Ordered Dose Route Frequency Start Date End Date Status albuterol sulfate (PROVENTIL) (2.5 MG/3ML) 0.083% inhalation solution 2.5 mgIndications:PHT (pulmonary hypertension) (HCC),Tobacco abuse, in remission,Pancytopenia (HCC),Environmental exposure,Secondhand smoke exposure 2.5 mg NEBULIZER Q4H PRN 07/08/2019 Active documented as of this encounter (statuses as of 09/23/2023) Active Problems Problem Noted Date Diagnosed Date Unspecified cirrhosis of liver 04/14/2020 Thrombocytopenia 10/15/2019 GENI positive 07/07/2019 PHT (pulmonary hypertension) 07/06/2019 Overview: Suspected on Echocardiogram when Hgb low. 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 Secondhand smoke exposure 07/06/2019 Environmental exposure 07/06/2019 Overview: Chickens, Ducks Pancytopenia documented as of this encounter (statuses as of 09/23/2023) Immunizations Name Administration Dates Next Due Pneumococcal [...] encounter Miscellaneous Notes * Telephone Encounter - Krista Low RPh - 09/23/2023 9:23 AM ESTSigned Prescriptions: Disp Refills Sildenafil Citrate 20 MG Oral Tablet (Palak*90 Tab*11 Sig: Take 1tablet in the morning, 1 tablet at noon, and 1 tablet before bedtime. Generic for Revatio.Authorizing Provider: MARIANGEL PALMA User: KRISTA LOW documented in this encounter Plan of Treatment Upcoming Encounters Date Type Department Care Team (Latest Contact Info) Description 09/27/2023 3:45 PM EST Imaging Radiology [facility] 1st [facility] [address] [place] [address] 10/16/2023 8:45 AM EST Hospital Encounter ENDO [facility], Endoscopy Room [facility] [address] [place] [address] Favian Escalante MD [address] [place] [address] 10/16/2023 8:45 AM EST - 10/16/2023 9:30 AM EST Surgery ENDO [facility], Endoscopy Room [facility] [address] [place] [address] Favian Escalante MD [address] [place] [address] ESOPHAGOGASTRODUODENOSCOPY (EGD), FLEXIBLE, TRANSORAL, ENDOSCOPIC ULTRASOUND 10/23/2023 10:40 AM EST Office Visit Hepatology, [facility] 132 [facility] [place] [address] Evangelina Dorado DO [address] [place] [address] 10/31/2023 12:20 PM EST Office Visit Pulmonary Medicine, [facility] 132 [facility] [place] [address] Ray Rose DO [address] [facility] [place], [place] [address] 11/13/2023 9:00 AM EST Office Visit Rheumatology [place] [phone] [facility] [place] [address] Maico Carrillo CRNP [facility] [place] [address] 02/11/2024 1:00 PM EDT Office Visit Family Practice [facility] [address] [place] [address] Mariangel Palma DO [address] [place] [address] Scheduled Procedures Name Priority Associated Diagnoses Date/Ti [...] 10/15/2019 LUNG CANCER SCREENING - USE SMARTSET 64172 Completed 07/09/2019 Zoster Vaccines Completed 07/10/2020, 04/14/2020 [...] encounter Visit Diagnoses Diagnosis PHT (pulmonary hypertension) (HCC) Other chronic pulmonary heart diseases Hepatic cirrhosis, unspecified hepatic cirrhosis type, unspecified whether ascites present (HCC) Anemia, unspecified type documented in this encounter Care Teams Hydroelectric Plant Maintainer Relationship Specialty Start Date End Date Mariangel Palma DO [address] [place] [address] PCP - General Family Medicine 06/30/19 documented as of this encounter
--- OUTSIDE RECORDS SUMMARY | 2023-12-10 20:26 | External Medical Summary ---
Author Name Unknown Address Unknown Organization K01:LABORATORY [place] [address] [address] [facility] [address] [place] [address] Laboratory Report Ordering Provider Test Date Status KARTHIKEYAN PAGAN 10/02/2023 09:19:18 Final Observation Date Value Abnormality Reference (Units) Status PARAPROTEIN NORMAL/ABNORMAL 10/02/2023 09:19:18 Normal Normal Final Protein, Urine 10/02/2023 09:19:18 5 (mg/dL) Final Protein Fractions [Interpretation] in Urine by Electrophoresis Narrative 10/02/2023 09:19:18 Protein concentrations are too low to fractionate. Recommend 24 hour urine collection, if clinically indicated. Final Protein Fractions [Interpretation] in Urine by Electrophoresis Narrative 10/02/2023 09:19:18 Final Albumin, Urine 10/02/2023 09:19:18 Final Globulin [Mass/volume] in Urine by Electrophoresis 10/02/2023 09:19:18 Final Performing Location LABORATORY [facility] [place] - [facility] [address] [facility] [place] [address]
--- OUTSIDE RECORDS SUMMARY | 2023-12-10 20:26 | External Medical Summary | Summary of Care ---
Author Name Unknown Organization [facility] Address [address] [place] [address] Phone [phone] Care Team Providers Care Management Analyst Name Role Phone Sarah Galaviz DO Primary Care Provider [phone] Reason for Visit * Reason Comments Outpatient Testing Encounter Details Date Type Department Care Team (Late st Contact Info) Description 10/02/2023 9:00 AM EST Laboratory Laboratory [address] [place] [phone] [facility] [address] [place] [address] Abnormal MRI, spine Allergies No known active allergiesdocumented as of this encounter (statuses as of 10/02/2023) Medications Medication Sig Dispensed Refills Start Date [...] as of this encounter (statuses as of 10/02/2023) Active Problems Problem Noted Date Diagnosed Date Unspecified cirrhosis of liver 04/14/2020 Thrombocytopenia 10/15/2019 GENI positive 07/07/2019 PHT (pulmonary hypertension) 07/06/2019 Overview: Suspected on Echocardiogram when Hgb low. 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 Secondhand smoke exposure 07/06/2019 Environmental exposure 07/06/2019 Overview: Chickens, Ducks Pancytopenia documented as of this encounter (statuses as of 10/02/2023) Immunizations Name Administration Dates Next Due Pneumococcal [...] Department Care Team (Latest Contact Info) Description 10/06/2023 2:00 PM EST Office Visit Hematology/[facility] [address] [facility] [address] Tammy Hammond CRNP [address] [facility] [place] [address] 10/16/2023 8:45 AM EST Hospital Encounter ENDO [facility], Endoscopy Room [facility] [address] [place] [phone] Favian Escalante MD [address] [facility] [place] [address] 10/16/2023 8:45 AM EST - 10/16/2023 9:30 AM EST Surgery ENDO [facility], Endoscopy Room [facility] [address] [place] [phone] Favian Escalante MD [address] [place] [address] ESOPHAGOGASTRODUODENOSCOPY (EGD), FLEXIBLE, TRANSORAL, ENDOSCOPIC ULTRASOUND 10/23/2023 10:40 AM EST Office Visit Hepatology, [facility] 132 [place] [address] Evangelina Dorado, DO 132 [facility] [place] [address] 10/31/2023 12:20 PM EST Office Visit Pulmonary Medicine, [facility] 132 [place] [address] Ray Rose, DO [address] [place] [address] 11/13/2023 9:00 AM EST Office Visit Rheumatology [place] [address]50 [facility] [place] [address] Maico Carrillo CRNP [address] [place] [address] [place] [address] 02/11/2024 1:00 PM EDT Office Visit Family Practice [facility] 132 [place] [address] Sarah Galaviz, DO 132 [place] [address] Pending Results Name Type Priority Associated Diagnoses Date /Time SERUM PROTEIN ELECTROPHORESIS REFLEX PROFILE Lab Routine Abnormal MRI, spine 10/02/2023 9:02 AM EST URINE PROTEIN ELECTROPHORESIS REFLEX PROFILE, RANDOM URINE Lab Routine Abnormal MRI, spine 10/02/2023 9:19 AM EST Scheduled Procedures Name Priority Associated Diagnoses Date/Ti id ESOPHAGOGASTRODUODENOSCOPY ( EGD), FLEXIBLE, TRANSORAL, ENDOSCOPIC ULTRASOUND [...] 10/15/2019 LUNG CANCER SCREENING - USE SMARTSET [address] Completed 07/09/2019 Zoster Vaccines Completed 07/10/2020, 04/14/2020 [...] as of this encounter Visit Diagnoses Diagnosis Abnormal MRI, spine Nonspecific (abnormal) findings on radiological and other examination of musculoskeletal system Hepatic cirrhosis, unspecified hepatic cirrhosis type, unspecified whether ascites present (HCC) Anemia, unspecified type documented in this encounter Care Teams Management Analyst Relationship Specialty Start Date End Date Sarah Galaviz DO [address] [place] [address] PCP - General Family Medicine 06/30/19 documented as of this encounter
--- OUTSIDE RECORDS SUMMARY | 2023-12-10 20:26 | External Medical Summary ---
Author Name Unknown Address Unknown Organization K01:[facility] [place] [address] [facility] [place] [address] Laboratory Report Ordering Provider Test Date Status BRYAN RAUSCH 10/23/2023 11:14:57 Final Observation Date Value Abnormality Reference (Units ) Status Hep A IgM 10/23/2023 11:14:57 Negative Negative Final Performing Location LAB[facility]ATORY [facility] - [address] [facility] [address]
--- OUTSIDE RECORDS SUMMARY | 2023-12-10 20:26 | External Medical Summary | Summary of Care ---
Author Name Unknown Organization [facility] Address [address] [facility] [place] [address] Phone [phone] Care Team Providers Care Fleet Salesperson Name Role Phone Sarah Galaviz DO Primary Care Provider [phone] Reason for Visit * Reason Onset Date Comments Test Results 09/29/2023 Unexpected or In determinate Result Encounter Details Date Type Department Care Team (Late st Contact Info) Description 09/29/2023 Telephone Family Practice [facility] [address] [place] [address] Deepa French DO [address] [place] [address] Test Results (Unexpected or Indeterminate ... Allergies [...] encounter Miscellaneous Notes * Telephone Encounter - Deepa French DO - 09/29/2023 5:18 PM EST noted * Telephone Encounter - Adela Recinos OSA - 09/29/2023 1:31 PM EST Hello- The radiologist discovered an unexpected or indeterminate finding on Marianne Chand ([id number]) and asks that you review the following [...] reviewed. Thank you, BOGDAN Villagomez Client Service [facility] documented in this encounter Plan of Treatment Upcoming Encounters Date Type Department Care Team (Latest Contact Info) Description 10/16/2023 8:45 AM EST Hospital Encounter ENDO [facility], Endoscopy Room [facility] [address] [place] [address] Favian Escalante MD [address] [place] [address] 10/16/2023 8:45 AM EST - 10/16/2023 9:30 AM EST Surgery ENDO [facility], Endoscopy Room [facility] [address] [place] [address] Favian Escalante MD [address] [place] [address] ESOPHAGOGASTRODUODENOSCOPY (EGD), FLEXIBLE, TRANSORAL, ENDOSCOPIC ULTRASOUND 10/23/2023 10:40 AM EST Office Visit Hepatology, [facility] 132 [facility] [place] [address] Evangelina Dorado DO [address] [place] [address] 10/31/2023 12:20 PM EST Office Visit Pulmonary Medicine, [facility] 132 [facility] [place] [address] Rya Rose, DO [address] [place] [address] 11/13/2023 9:00 AM EST Office Visit Rheumatology [place] [phone] [facility] [place] [address] Maico Carrillo CRNP [facility] [place] [address] 02/11/2024 1:00 PM EDT Office Visit Family Practice [facility] 132 [facility] [place] [address] Sarah Galaviz DO [address] [place] [address] Scheduled Procedures Name Priority Associated Diagnoses Date/Ti [...] 10/15/2019 LUNG CANCER SCREENING - USE SMARTSET 39257 Completed 07/09/2019 Zoster Vaccines Completed 07/10/2020, 04/14/2020 [...] filedocumented as of this encounter Care Teams Fleet Salesperson Relationship Specialty Start Date End Date Sarah Galaviz DO [address] [place] [address] PCP - General Family Medicine 06/30/19 documented as of this encounter
--- OUTSIDE RECORDS SUMMARY | 2023-12-10 20:26 | External Medical Summary | Summary of Care ---
Author Name Unknown Organization [facility] Address [address] [facility] [place] [address] Phone [phone] Care Team Providers Care Chiropractic Neurologist Name Role Phone Sarah Galaviz DO Primary Care Provider [phone] Reason for Visit * Reason Onset Date Comments Appointment 09/25/2023 Encounter Details Date Type Department Care Team (Late st Contact Info) Description 09/25/2023 Telephone Radiology [address] 132 [facility] [place] [address] Tori Sandoval TECH Appointment Allergies No known active allergiesdocumented as of this encounter (statuses as of 09/25/2023) Medications Medication Sig Dispensed Refills Start Date [...] as of this encounter (statuses as of 09/25/2023) Active Problems Problem Noted Date Diagnosed Date Unspecified cirrhosis of liver 04/14/2020 Thrombocytopenia 10/15/2019 GENI positive 07/07/2019 PHT (pulmonary hypertension) 07/06/2019 Overview: Suspected on Echocardiogram when Hgb low. 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 Secondhand smoke exposure 07/06/2019 Environmental exposure 07/06/2019 Overview: Chickens, Ducks Pancytopenia documented as of this encounter (statuses as of 09/25/2023) Immunizations Name Administration Dates Next Due Pneumococcal [...] - 05/27/2019 Smokeless Tobacco: Never Comments:stopped smoking [employer] having kids Alcohol Use Standard Drinks/Week Comments [...] Description 09/27/2023 3:45 PM EST Imaging Radiology [address] 132 [place] [address] 10/16/2023 8:45 AM EST Hospital Encounter ENDO [facility], Endoscopy Room [facility] [address] [place] [address] Favian Escalante MD [address] [place] [address] 10/16/2023 8:45 AM EST - 10/16/2023 9:30 AM EST Surgery ENDO [facility], Endoscopy Room [facility] [address] [place] [address] Favian Escalante MD [address] [place] [address] ESOPHAGOGASTRODUODENOSCOPY (EGD), FLEXIBLE, TRANSORAL, ENDOSCOPIC ULTRASOUND 10/23/2023 10:40 AM EST Office Visit Hepatology, [facility] [address] [place] [address] Evangelina Dorado DO 132 [place] [address] 10/31/2023 12:20 PM EST Office Visit Pul[facility], [facility] [place] [address] Ray Rose DO [address] [place] [address] 11/13/2023 9:00 AM EST Office Visit Rheumatology [place] [address] [place] [address] Maico Carrillo CRNP [address] [place] [address] 02/11/2024 1:00 PM EDT Office Visit Family Practice [facility] 132 [facility] [place] [address] Sarah Galaviz, DO 132 [facility] [place] [address] Scheduled Procedures Name Priority Associated Diagnoses Date/Ti [...] 10/15/2019 LUNG CANCER SCREENING - USE SMARTSET 72972 Completed 07/09/2019 Zoster Vaccines Completed 07/10/2020, 04/14/2020 [...] filedocumented as of this encounter Care Teams Chiropractic Neurologist Relationship Specialty Start Date End Date Sarah Galaviz DO [address] [place] [address] PCP - General Family Medicine 06/30/19 documented as of this encounter
--- OUTSIDE RECORDS SUMMARY | 2023-12-10 20:26 | External Medical Summary ---
Author Name Unknown Address Unknown Organization [id number][facility] [address] [place] [address] Laboratory Report Ordering Provider Test Date Status BRYAN RAUSCH 10/23/2023 11:14:57 Final Observation Date Value Abnormality Reference (Units ) Status Albumin 10/23/2023 11:14:57 4.0 3.8-5.0 (g/dL) Final AST (Aspartate aminotransferase) 10/23/2023 11:14:57 45 Above high normal 10-35 (U/L) Final Alk Phos 10/23/2023 11:14:57 145 Above high normal 35-130 (U/L) Final ALT (Alanine aminotransferase) 10/23/2023 11:14:57 31 10-35 (U/L) Final Bilirubin, Total 10/23/2023 11:14:57 7.5 Above high normal <=1.2 (mg/dL) Final Bilirubin, Direct 10/23/2023 11:14:57 0.7 Above high normal 0.0-0.3 (mg/dL) Final Protein 10/23/2023 11:14:57 7.2 6.0-8.3 (g/dL) Final Performing Location [facility] [address] [place] [address]
--- OUTSIDE RECORDS SUMMARY | 2023-12-10 20:26 | External Medical Summary | Summary of Care ---
Author Name Unknown Organization [facility] Address [address] [facility] [place] [address] Phone [phone] Care Team Providers Care Stair Builder Name Role Phone Sarah Galaviz DO Primary Care Provider [phone] Reason for Referral * Precert (Within 10 days (routine)) - Authorized Specialty Diagnoses / Procedures Referred By Contac t Referred To Contact Diagnoses Elevated anti-tissue transglutaminase (tTG) IgA level Procedures HLA TYPING FOR CELIAC DISEASE Evangelina Dorado DO [address] [place] [address] Evangelina Dorado DO [address] [place] [address] Referral ID Status Reason Start Date Expiration Date V isits Requested Visits Authorized [id number] Authorized Precert 10/23/2023 02/21/2024 999 999 Reason for Visit * Reason Comments NEW PATIENT Cirrhosis * Evaluate & Treat - Unlimited Visits (Within 10 days (routine)) - Pending Review Specialty Diagnoses / Procedures Referred By Contac t Referred To Contact Gastroenterology Diagnoses Hepatic cirrhosis, unspecified hepatic cirrhosis type, unspecified whether ascites present (HCC) Serum total bilirubin elevated Jaundice Thrombocytopenia (HCC) Transaminitis Michelle French DO [address] [place] [address] Referral ID Status Reason Start Date Expiration Date Visits Requested Visits Authorized [id number] Pending Review Specialty Services Required 3 [phone] Encounter Details Date Type Department Care Team (Latest Contact Info) Description 10/23/2023 10:40 AM EST Office Visit Hepatology, [facility] [address] [place] [address] Evangelina Dorado VanesaDO [address] [place] [address] Cirrhosis of liver without ascites, unspecified hepatic cirrhosis type (HCC)*; Elevated anti-tissue transglutaminase (tTG) IgA level Allergies [...] Sign Reading Time Taken Comments Blood Pressure 122/78 10/23/2023 10:28 AM EST Pulse 71 10/23/2023 10:28 AM EST Temperature 36.7 C (98.1 F) 10/23/2023 10:[address] Respiratory Rate - - Oxygen Saturation 97% 10/23/2023 10:28 AM EST Inhaled Oxygen Concentration - - Weight 83.6 kg (184 lb 3.2 oz) 10/23/2023 10:28 AM EST Height 167.6 cm (5' 6") 10/23/2023 10:28 AM EST Body Mass Index 29.73 10/23/2023 10:28 AM EST documented in this encounter Progress Notes * Evangelina Dorado DO - 10/23/2023 10:34 AM EST Images from the original note were not included. CC: concern for cirrhosis HPI: Marianne Chand is a 62 year old female referred by michelle French DO for further evaluation of cirrhosis. She has PMH notable for pancytopenia, pulmonary hypertension, anemia. She was initially seen by GI in 2020 when total bilirubin at that time noted to be 8-10 with elevated ALP and normal AST and ALT. ASMA, AMA and TTG IGA were all elevated concerning for celiac diseaseand autoimmune liver disease. A liver biopsy was recommended at that time and she never followed upfor 3 years and was lost to follow up. Her PCP ordered her an EUS guided liver biopsy that was suppo sed to be completed 10/16 but was cancelled due to a sore throat. She has had a chronically elevated bilirubin since at least 2019. Most recently her labs from August show a total bilirubin of 8.3 (all indirect, direct bili was only 0.7) ALP 130, AST 36, and ALT of 35. She saw hematology in August due to a concern for hematological disorder with splenomegaly, indirect hyperbilirubinemia, pancytopenia and they were concern for hemolysis. Some testing was ordered and it appears WINSTON Jose had reached out to her as she had discussed the case with hematology in [place] who wanted further testing but patient did not show back up to appointment to discuss. She has another appointmentwith hematology scheduled 11/06. She has been very non-compliant to follow back up with providers or obtain a liver biopsy that has been ordered twice for her. Most recently an MRI of her abdomen from 09/27/2023 shows evidence of cirrhosis with mild splenomegaly. Also noted to have heterogeneous patchy marrow signal of the visualized spine that also drops on out of phase imaging. Findings favored to represent red marrow reconversion from anemia. Correlate clinically for other etiologies such as multiple myeloma. She states the liver biopsy appointment got cancelled 10/16 because she had a sore throat. She has this rescheduled 12/10. She states she was not aware of any liver issues until 2019. She denies any history of alcohol abuse in the past or now. States she hardly ever drank and she hasn't drank in many years. Denies any history of IV or intranasal drug use. Denies any OTC or herbal supplements. She denies any family history of autoimmune disease, liver disease, HCC, or GI malignancy. Past Medical History: Diagnosis Date Allergic rhinitis Anxiety state ? anxiety attack. Environmental exposure 07/06/2019 Chickens, Ducks Pancytopenia (HCC) PHT (pulmonary hypertension) (HCC) 07/06/2019 Suspected on Echocardiogram when Hgb low. 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 Generic for Revatio. 90 Tablet 11 Acetaminophen ER (TYLENOL 8 HOUR ARTHRITIS PAIN) 650 MG TBCR Take 1 Tablet by mouth every 8 hours as needed for Fever. Fluticasone Propionate 50 MCG/ACT Nasal Suspension Administer 2 Sprays into each nostril daily. (Patient not taking: Reported on 08/13/2023) 16 g 3 Folic Acid 1 MG Oral Tablet Take 1 Tablet by mouth in the morning. (Patient not taking: Reported on10/23/2023) 30 Tablet 2 Current Facility-Administered Medications Medication Dose Route Frequency Provider Last Rate Last Admin albuterol sulfate (PROVENTIL) (2.5 MG/3ML) 0.083% inhalation solution 2.5 mg 2.5 mg Nebulizer Q4H PRN Ray Rose DO 2.5 mg at 07/09/19 5178 Review of patient's allergies indicates: No Known Allergies Social History Socioeconomic History Marital status: Spouse [...] on file Housing Stability: Not on file Family History Problem Relation Age of Onset Diabetes Father mild stroke. Hypertension Father Heart Disorder Father bypass Stroke Father Diabetes Brother Heart Disorder Mother bypass Alzheimer's disease Mother Asthma Mother Other (Other) Other No h/o cancer, neurological problems Other (Healthy) Son Other (Healthy) Daughter Endocrine Disorder Sister thyroid Review of Systems: Constitutional: No report of fever, chills, night sweats. There have been no non-intentional weightchanges. Eyes: No recent changes in visual acuity or blurring of vision. ENT: No change in auditory acuity, sense of smell or taste. CV: No chest pain, palpitations, dyspnea on exertion. Respiratory: No wheezing, cough, sputum production. : No dysuria, polyuria, change in urinary frequency. GI: Per HPI, otherwise negative. Psychiatric: No chronic changes in mood, affect or sensorium. Musculoskeletal: No myalgias, arthralgias, or joint pains. Neurological: No change in gait, change in maintenance of balance, neurologic injuries. Physical Exam Constitutional: BP 122/78 (BP Site: Left Arm, BP Position: Sitting, BP Cuff Size: Regular) | Pulse 71 | Temp 36.7 C (98.1 F) (Tympanic) | Ht 1.676 m (5' 6") | Wt 83.6 kg (184 lb 3.2 oz) | SpO2 97% | BMI 29.73 kg/m | BSA 1.97 m Well developed, well nourished female in no apparent distress. Chronically ill appear. Jaundiced. Eyes: Notable scleral icterus. Diffusely jaundiced. CV: Heart is regular without murmur, rub or saige. Pulm: Clear to percussion and auscultation. GI: Abdomen is soft, non-tender, with normo-active bowel sounds in all four quadrants. No hepatosplenoegaly is appreciated. No masses are palpated. No guarding or rebound is noted. Psychiatric: The patient is alert and oriented in all four spheres. Mood is euthymic. Affect is appropriate for the situation. Skin: Jaundiced Musculoskeletal: Gait is normal. Patient is able to transfer from sitting position to exam table without assistance. Labs: Reviewed Component Latest Ref Rng 02/18/2020 12/01/2020 04/18/2021 08/05/2023 BUN 6 - 20 mg/dL 14 6 11 12 Creatinine 0.5 - 1.0 mg/dL 0.9 0.7 0.8 0.9 Estimated Glomerular Filtration Rate >=60 mL/min >60.0 >90.0 79.1 73 Sodium 135 - 146 mmol/L 140 141 141 140 Potassium 3.5 - 5.1 mmol/L 3.7 4.1 4.2 4.1 Chloride 98 - 107 mmol/L 103 111 (H) 111 (H) 108 (H) CO2 22 - 32 mmol/L 23 18 (L) 20 (L) 19 (L) Anion Gap 7 - 15 mmol/L 14 12 10 13 Glucose 70 - 120 mg/dL 104 101 102 104 Albumin 3.8 - 5.0 g/dL 4.5 4.2 4.1 4.1 AST 10 - 35 U/L 45 (H) 45 (H) 35 41 (H) Alkaline Phosphatase 35 - 130 U/L 92 140 (H) 125 135 (H) Bilirubin, Total <=1.2 mg/dL 4.3 (H) 3.7 (H) 4.2 (H) 10.5 (H) Calcium 8.4 - 10.2 mg/dL 9.5 9.1 9.1 9.1 Protein 6.0 - 8.3 g/dL 7.8 7.2 7.2 7.5 ALT 10 - 35 U/L 33 33 23 26 Component Latest Ref Rn 08/13/2023 08/21/2023 BUN 6 - 20 mg/dL 13 12 Creatinine 0.5 - 1.0 mg/dL 1.0 0.9 Estimated Glomerular Filtration Rate >=60 mL/min 68 75 Sodium 135 - 146 mmol/L 140 141 Potassium 3.5 - 5.1 mmol/L 4.1 3.5 Chloride 98 - 107 mmol/L 108 (H) 107 CO2 22 - 32 mmol/L 19 (L) 19 (L) Anion Gap 7 - 15 mmol/L 13 15 Glucose 70 - 120 mg/dL 93 89 Albumin 3.8 - 5.0 g/dL 3.9 4.2 AST 10 - 35 U/L 56 (H) 36 (H) Alkaline Phosphatase 35 - 130 U/L 145 (H) 130 Bilirubin, Total <=1.2 mg/dL 10.2 (H) 8.3 (H) Calcium 8.4 - 10.2 mg/dL 9.3 8.9 Protein 6.0 - 8.3 g/dL 7.3 7.2 ALT 10 - 35 U/L 32 35 Bilirubin, Direct 0.0 - 0.3 mg/dL 0.7 High Computed MELD 3.0 unavailable. One or more values for this score either were not found within the given timeframe or did not fit some other criterion. IgG 700 - 1,600 mg/dL 1,702 High IgA 70 - 400 mg/dL 505 High IgM 40 - 230 mg/dL 462 High Resulting Agency [facility] PRIM BILIARY CIRRHOSIS <20 UNITS 21.3 High r ago ACTIN IGG AB <20 UNITS 27.3 High Comment: WEAKLY POSITIVE TISSUE TRANSGLUTAMINASE IGA AB <20 CU 21.6 High Comment: WEAKLY POSITIVE Imaging: Reviewed MRI abdomem wo contrast 09/27/2023: IMPRESSION: Hepatic cirrhosis. No obvious suspicious hepatic mass on this noncontrast study. Correlate clinically for chronic liver disease and HCC surveillance recommended. Mild splenomegaly. Heterogeneous patchy marrow signal of the visualized spine that also drops on out of phase imaging.Findings favored to represent red marrow reconversion from anemia. Correlate clinically for other etiologies such as multiple myeloma. Abdominal US 03/06/2020: IMPRESSION 1. Subcentimeter probable cyst in the right and left lobe. Follow-up ultrasound advised in 3-6 months to ensure stability. 2. Mild diffuse increased and coarse echotexture of liver. Nonspecific finding. Fatty infiltration is a consideration among other diffuse hepatocellular processes. 3. No evidence of cholelithiasis, cholecystitis or biliary ductal dilatation. 4. Limited evaluation of pancreas. 5. Normal right kidney. ASSESSMENT: Marianne Chand is a 62 year old female referred by michelle French DO for further evaluation of cirrhosis. She has PMH notable for pancytopenia, pulmonary hypertension, anemia. Plan: 1. Elevated LFTs now with cirrhosis on imaging. Concern for autoimmune liver disease. She has been very non-compliant to follow back up with providers or obtain a liver biopsy that has been ordered twice for her over the past 4 years. Most recently an MRI of her abdomen from 09/27/2023 shows evidence of cirrhosis with mild splenomegaly. She was initially seen by GI in 2020 when total bilirubin at that time noted to be 8-10 (all indirect) with elevated ALP and normal AST and ALT. ASMA, AMA and TTG IGA were all elevated concerning for celiac disease and autoimmune liver disease. We discussed today that we absolutely need to obtain an EUS guided liver biopsy to assess what is going on to be able to manage her appropriately moving forward and she has this scheduled 12/10. Will also obtain duodenal biopsies to assess for celiac. She states she does not follow a gluten free diet and never had. I strongly advised her to show up to the appointment for the biopsy and not to miss this as we need this information to manage her condition moving forward. In addition, I am also concerned for a hematological disorder. She saw hematology in August due to a concern for hematological disorder with splenomegaly, indirect hyperbilirubinemia, pancytopenia and they were concerned for hemolysis. Some t esting was ordered and it appears WINSTON Jose had reached out to her as she had discussed the case with hematology in [place] who wanted further testing but patient did not show back up to appointment to discuss. She has another appointment with hematology scheduled 11/06. I encouraged herto keep this appointment. Her bilirubin elevation is all indirect so it is likely not driven by theliver. We discussed need for variceal screening given cirrhosis which can be done at time of liver biopsy (12/10) and need for imaging of the abdomen every 6 months with AFP for HCC screening. MRI from 09/2023 reviewed so she is due again in 03/2024. Labs ordered today. 2. Vaccination. After determining the immune status for HAV/HBV, we will recommend appropriate vaccines. 3. Colorectal cancer screening. She has never had a colonoscopy before or colon cancer screening. No family history of CRC. She states she is not interested in a colonoscopy at this time. I advised her I would then recommend a Cologuard which her PCP can order and she states she is agreeable to this. We did discuss if cologuard is + she would need colonoscopy and she states she may be ok with this. 4. I have advised the patient to abstain from drinking alcohol. The health risks imposed by heavy alcohol intake were discussed in detail. 5. Follow up in 3 months Evangelina Dorado DO Gastroenterology and Hepatology I spent a total of 55 minutes on the date of service in review of patient's record, and previously obtained information in person and appropriate medical visit, discussion and education of plan, withpatient and/or caregiver, placing orders for tests/referral/procedures as medically necessary and documentation of pertinent clinical information in patient's medical records for their visit today. documented in this encounter Nursing Notes * Kenyon Kraus, MARY - 10/23/2023 10:26 AM EST Chief Complaint Patient presents with NEW PATIENT Cirrhosis Marianne Chand is a 62 year old female who presents today with hepatic cirrhosis. She denies having any GI symptoms. She had an abdominal MRI on 09/27/2023. documented in this encounter Plan of Treatment Upcoming Encounters Date Type Department Care Team (Latest Contact Info) Description 10/23/2023 11:20 AM EST Laboratory Laboratory, [facility] [address] [facility] [place] [phone] [facility] [address] [facility] [place] [address] Elevated anti-tissue transglutaminase (tTG) IgA level 10/31/2023 12:20 PM EST Office Visit Pulmonary Medicine, [facility] 132 [facility] [place] [address] Ray Rose, DO [address] [place] [address] 11/06/2023 9:00 AM EST Office Visit Hematology/[facility] [place] [facility] [place] [address] Tammy Hammond CRNP [address] [place] [address] 11/13/2023 9:00 AM EST Office Visit Rheumatology [place] [phone] [facility] [place] [address] Maico Carrillo CRNP [address] [place] [address] 12/11/2023 8:00 AM EDT Hospital Encounter ENDO [facility], Endoscopy Room [facility] [address] [place] [phone] Favian Escalante MD 132 [facility] [place] [address] 12/11/2023 8:00 AM EDT - 12/11/2023 9:00 AM EDT Surgery ENDO [facility], Endoscopy Room [facility] [address] [place] [address] Favian Escalante MD [address] [place] [address] ESOPHAGOGASTRODUODENOSCOPY (EGD), FLEXIBLE, TRANSORAL, ENDOSCOPIC ULTRASOUND 01/23/2024 11:40 AM EDT Office Visit Hepatology, [facility] [address] [place] [address] Evangelina Dorado, DO [address] [place] [address] 02/11/2024 1:00 PM EDT Office Visit Family Practice [facility] [address] [place] [address] Sarah Galaviz, DO [address] [place] [address] Pending Results Name Type Priority Associated Diagnoses Date /Time HEPATIC FUNCTION PANEL Lab Routine Cirrhosis of liver without ascites, unspecified hepatic cirrhosis type (HCC) 10/23/2023 11:14 AM EST PT INR Lab Routine Cirrhosis of liver without ascites, unspecified hepatic cirrhosis type (HCC) 10/23/2023 11:14 AM EST CBC WITH WBC DIFFERENTIAL Lab Routine Cirrhosis of liver without ascites, unspecified hepatic cirrhosis type (HCC) 10/23/2023 11:14 AM EST BASIC METABOLIC PANEL Lab Routine Cirrhosis of liver without ascites, unspecified hepatic cirrhosis type (HCC) 10/23/2023 11:14 AM EST ALPHA-FETOPROTEIN TUMOR MARKER Lab Routine Cirrhosis of liver without ascites, unspecified hepatic cirrhosis type (HCC) 10/23/2023 11:14 AM EST HLA TYPING FOR CELIAC DISEASE Lab Routine Elevated anti-tissue transglutaminase (tTG) IgA level 10/23/2023 11:14 AM EST CELIAC DISEASE SEROLOGY REFLEX PANEL Lab Routine Elevated anti-tissue transglutaminase (tTG) IgA level 10/23/2023 11:14 AM EST HEPATITIS A ANTIBODIES IGG AND IGM Lab Routine Cirrhosis of liver without ascites, unspecified hepatic cirrhosis type (HCC) 10/23/2023 11:14 AM EST HEPATITIS A ANTIBODY IGM Lab Routine Cirrhosis of liver without ascites, unspecified hepatic cirrhosis type (HCC) 10/23/2023 11:14 AM EST HEPATITIS B SURFACE ANTIBODY Lab Routine Cirrhosis of liver without ascites, unspecified hepatic cirrhosis type (HCC) 10/23/2023 11:14 AM EST HEPATITIS B CORE ANTIBODIES IGG AND IGM Lab Routine Cirrhosis of liver without ascites, unspecified hepatic cirrhosis type (HCC) 10/23/2023 11:14 AM EST CBC Lab Routine Cirrhosis of liver without ascites, unspecified hepatic cirrhosis type (HCC) 10/23/2023 11:14 AM EST DIFFERENTIAL, AUTOMATED Lab Routine Cirrhosis of liver without ascites, unspecified hepatic cirrhosis type (HCC) 10/23/2023 11:14 AM EST Scheduled Orders Name Type Priority Associated Diagnoses Orde r Schedule HLA TYPING FOR CELIAC DISEASE Lab Routine Elevated anti-tissue transglutaminase (tTG) IgA level Expected: 10/23/2023, Expires: 10/23/2024 CELIAC DISEASE SEROLOGY REFLEX PANEL Lab Routine Elevated anti-tissue transglutaminase (tTG) IgA level Expected: 10/23/2023, Expires: 10/23/2024 Scheduled Procedures Name Priority Associated Diagnoses Date/Ti [...] 10/15/2019 LUNG CANCER SCREENING - USE SMARTSET 94317 Completed 07/09/2019 Zoster Vaccines Completed 07/10/2020, 04/14/2020 [...] ascites, unspecified hepatic cirrhosis type (HCC)- Primary Elevated anti-tissue transglutaminase (tTG) IgA level Elevated anti-tissue transglutaminase (tTG) IgA level Hepatic cirrhosis, unspecified hepatic cirrhosis type, unspecified whether ascites present (HCC) Anemia, unspecified type documented in this encounter Care Teams Stair Builder Relationship Specialty Start Date End Date Sarah Galaviz DO [address] [place] [address] PCP - General Family Medicine 06/30/19 documented as of this encounter
--- OUTSIDE RECORDS SUMMARY | 2023-12-10 20:26 | External Medical Summary ---
Author Name Unknown Address Unknown Organization K01:[facility] [place] [address] [place] [address] Laboratory Report Ordering Provider Test Date Status BRYAN RAUSCH 10/23/2023 11:14:57 Final Observation Date Value Abnormality Reference (Units) Status Hepatitis B virus surface Ab [Units/volume] in Serum or Plasma by Immunoassay 10/23/2023 11:14:57 <3.5 (mIU/mL) Final Hepatitis B virus surface Ab [Presence] in Serum by Immunoassay 10/23/2023 11:14:57 Negative Final HEPATITIS B SURFACE ANTIBODY, INTERPRETATION 10/23/2023 11:14:57 NOT immune to Hepatitis B Virus Final POSITIVE: >=11.5 mIU/mL
INDETERMINATE: 8.5-<11.5 mIU/mL
NEGATIVE: <8.5 mIU/mL Performing Location [facility] [place] [address] [place] [address]
--- OUTSIDE RECORDS SUMMARY | 2023-12-10 20:26 | External Medical Summary ---
Author Name Unknown Address Unknown Organization K01:LABORATORY [facility] [place] - [address] [facility] [address] Laboratory Report Ordering Provider Test Date Status KARTHIKEYAN PAGAN 10/02/2023 09:02:56 Final Observation Date Value Abnormality Reference (Units) Status PARAPROTEIN NORMAL/ABNORMAL 10/02/2023 09:02:56 Normal Normal Final Protein 10/02/2023 09:02:56 6.8 6.0-8.3 (g/dL) Final Albumin/Protein.total [Pure mass fraction] in Serum or Plasma by Electrophoresis 10/02/2023 09:02:56 3.40 3.30-4.40 (g/dL) Final Alpha 1 globulin/Protein.tota l [Pure mass fraction] in Serum or Plasma by Electrophoresis 10/02/2023 09:02:56 0.28 0.10-0.30 (g/dL) Final Alpha 2 globulin/Protein.tota l [Pure mass fraction] in Serum or Plasma by Electrophoresis 10/02/2023 09:02:56 0.52 Below low normal 0.60-1.00 (g/dL) Final Beta globulin/Protein.tota l [Pure mass fraction] in Serum or Plasma by Electrophoresis 10/02/2023 09:02:56 0.91 0.80-1.30 (g/dL) Final Gamma globulin/Protein.tota l [Pure mass fraction] in Serum or Plasma by Electrophoresis 10/02/2023 09:02:56 1.70 0.70-1.70 (g/dL) Final Protein Fractions [Interpretation] in Serum or Plasma by Electrophoresis Narrative 10/02/2023 09:02:56 No paraprotein detected. Final Performing Location LABORATORY [facility] - [address] [facility] [address]
--- OUTSIDE RECORDS SUMMARY | 2023-12-10 20:26 | External Medical Summary | Summary of Care ---
Author Name Unknown Organization [facility] Address [address] [place] [address] Phone [phone] Care Team Providers Care Plastics Nurse Name Role Phone Sarah Galaviz DO Primary Care Provider [phone] Reason for Visit * Reason Comments Outpatient Testing Encounter Details Date Type Department Care Team (Late st Contact Info) Description 10/02/2023 9:00 AM EST Laboratory Laboratory [address] [place] [id number] [facility] [address] [place] [address] Abnormal MRI, spine Allergies No known active [...] PM EST Office Visit Hematology/Oncol hazel [facility] [address] [facility] [address] Tammy Hammond CRNP [address] [facility] [place] [address] 10/16/2023 8:45 AM EST Hospital Encounter ENDO [facility], Endoscopy Room [facility] [address] [place] [phone] Favian Escalante MD [address] [facility] [address] 10/16/2023 8:45 AM EST - 10/16/2023 9:30 AM EST Surgery ENDO [facility], Endoscopy Room [facility] [address] [place] [phone] Favian Escalante MD [address] [place] [address] ESOPHAGOGASTRODUODENOSCOPY (EGD), FLEXIBLE, TRANSORAL, ENDOSCOPIC ULTRASOUND 10/23/2023 10:40 AM EST Office Visit Hepatology, [facility] [address] [place] [address] Evangelina Dorado, DO 132 [place] [address] 10/31/2023 12:20 PM EST Office Visit Pulmonary Medicine, [facility] [address] [facility] [place] [address] Ray Rose, DO [address] [place] [address] 11/13/2023 9:00 AM EST Office Visit Rheumatology [place] [address] [place] [address] Maico Carrillo CRNP [address] [place] [address] [place] [address] 02/11/2024 1:00 PM EDT Office Visit Family Practice [facility] [address] [facility] [place] [address] Sarah Galaviz, DO 132 [place] [address] Pending Results Name Type Priority Associated Diagnoses Date /Time SERUM PROTEIN ELECTROPHORESIS REFLEX PROFILE Lab Routine Abnormal MRI, spine 10/02/2023 9:02 AM EST Scheduled Procedures Name Priority Associated Diagnoses Date/Ti md ESOPHAGOGASTRODUODENOSCOPY ( EGD), FLEXIBLE, TRANSORAL, ENDOSCOPIC ULTRASOUND [...] 10/15/2019 LUNG CANCER SCREENING - USE SMARTSET 29437 Completed 07/09/2019 Zoster Vaccines Completed 07/10/2020, 04/14/2020 [...] type documented in this encounter Care Teams Plastics Nurse Relationship Specialty Start Date End Date Sarah Galaviz DO [address] [place] [address] PCP - General Family Medicine 06/30/19 documented as of this encounter
--- OUTSIDE RECORDS SUMMARY | 2023-12-10 20:26 | External Medical Summary ---
Author Name Unknown Address Unknown Organization : Laboratory Report Ordering Provider Test Date Status BRYAN RAUSCH 10/23/2023 11:14:57 Final Observation Date Value Abnormality Reference (Units ) Status HLA Ag [Interpretation] 10/23/2023 11:14:57 SEE BELOW Final The patient has one of the H LA-DQ variants associated
with celiac disease.
More than 97% of celiac patients carry either
HLA-DQ2(DQA1*05/DQB1*02) or HLA-DQ8(DQA1*03/DQB1*0302)
or both. However, 39% of the general [place] population
carry these HLA-DQ variants, as a consequence, the
presence of HLA-DQ2 or DQ8 or both variants is not per
se diagnostic of celiac disease. Genetic counseling as
needed. HLA-DQ2 [Presence] 10/23/2023 11:14:57 Positive Final HLA-DQ8 [Presence] 10/23/2023 11:14:57 Negative Final HLA-DQA1 [Presence] 10/23/2023 11:14:57 01 Final HLA-DQA1 [Presence] 10/23/2023 11:14:57 05 Final HLA-DQB1 [Presence] 10/23/2023 11:14:57 0201 Final HLA-DQB1 [Presence] 10/23/2023 11:14:57 0602 Final RESULTS REVIEWED BY: 10/23/2023 11:14:57 SEE BELOW Final Ameya Salgado M.D. # Ph.D., [facility]
Mussel Farmer, Cytogenetics and Genomics
Typing performed by PCR and hybridization with sequence
specific oligonucleotide probes (SSO) using the
FDA-cleared LABType(R) SSO Kit.

Test Performed at:
[facility]
[address] [facility] [facility]
[place] [address]
Chevy Marin M.D., Ph.D.,Director of Laboratories Performing Location
--- OUTSIDE RECORDS SUMMARY | 2023-12-10 20:26 | External Medical Summary ---
Author Name Unknown Address Unknown Organization K01:LABORATORY [facility] [place] - [facility] [address] [place] [address] Laboratory Report Ordering Provider Test Date Status BRYAN RAUSCH 10/23/2023 11:14:57 Final Observation Date Value Abnormality Reference (Units) Status CELIAC DISEASE SCREEN INTER - [facility] 10/23/2023 11:14:57 Results are consistent with celiac disease. Final Tissue transglutaminase IgA Ab [Units/volume] in Serum by Immunoassay 10/23/2023 11:14:57 >128.0 <7 (U/mL) Final Tissue transglutaminase IgA Ab [Presence] in Serum by Immunoassay 10/23/2023 11:14:57 Positive Abnormal Negative Final IgA 10/23/2023 11:14:57 512 Above high normal 70-400 (mg/dL) Final Performing Location LABORATORY [facility] [facility] - [facility] [address] [place] [address]
--- OUTSIDE RECORDS SUMMARY | 2023-12-10 20:26 | External Medical Summary | Summary of Care ---
Author Name Unknown Organization [facility] Address [address] [facility] [place] [address] Phone [phone] Care Team Providers Care Double End Trimmer Name Role Phone Sarah Galaviz DO Primary Care Provider [phone] Reason for Referral * Ancillary Services (Within 10 days (routine)) - Pending Review Specialty Diagnoses / Procedures Referred By Contac t Referred To Contact Gastroenterology Diagnoses Anemia, unspecified type Sarah Galaviz DO [address] [facility] [place] [address] Referral ID Status Reason Start Date Expiration Date Visits Requested Visits Authorized [id number] Pending Review Ancillary Services Required 3 [phone] Question Answer Referral Priority Within 10 days (routine) Where should this appointment be scheduled? [facility] ALERT: Do not order for pediatric patients (18 years or younger). Cancel off screen and order PEDS GASTROENTEROLOGY CONSULT (Type: 1 visit only-Evaluate and Treat) The following Pt. Instructions are available: - Gastro Colonoscopy Prep Instructions [54836] - Gastro Colonoscopy Prep Instructions (Puerto Rican Version) [[id number]] Go to the Pt. Instructions section within the Visit Navigator to access. Colonoscopy ASGE Guidelines: Iron deficiency anemia ADDITIONAL INFORMATION 1. Is the patient on Coumadin? No 2. Is the patient on Pradaxa? No Reason for Visit * Reason Onset Date Comments Emergency Department Follow-Up [facility] 08/05/23 for cough, Medication Administration 08/13/2023 Flu an d/or Pneumo Inj Encounter Details Date Type Department Care Team ([facility] Contact Info) Description 08/13/2023 1:40 PM EST Office Visit Family Practice [facility] [address] [place] [address] Sarah Galaviz, [address] [place] [address] Anemia, unspecified type*; Hepatic cirrhosis, unspecified hepatic cirrhosis type, unspecified whether ascites present (HCC); Acute bronchitis, antibiotics not indicated; Special screening for malignant neoplasms, colon; Need for prophylactic vaccination and inoculation against influenza Allergies No known active allergiesdocumented as of this encounter (statuses as of 09/06/2023) Medications Medication Sig Dispensed Refills Start Date [...] Active Sildenafil Citrate 20 MG Oral Tablet (Revatio)Indication s:PHT (pulmonary hypertension) (HCC) Take 1 Tablet by [...] tightness, sob). 18 g 1 08/13/2023 Active predniSONE 20 MG Oral Tablet (Deltasone)Indicati ons:Acute bronchitis, antibiotics not indicated Take 2 Tablets by mouth in the morning for 5 days. 10 Tablet 0 08/13/2023 08/18/2023 Hospital, Clinic, or Other Facility Administered Medication Ordered Dose Route Frequency Start Date End Date Status albuterol sulfate (PROVENTIL) (2.5 MG/3ML) 0.083% inhalation solution 2.5 mgIndications:PHT (pulmonary hypertension) (HCC),Tobacco abuse, in remission,Pancytopenia (HCC),Environmental exposure,Secondhand smoke exposure 2.5 mg NEBULIZER Q4H PRN 07/08/2019 Active documented as of this encounter (statuses as of 09/06/2023) Active Problems Problem Noted Date Diagnosed Date Unspecified cirrhosis of liver 04/14/2020 Thrombocytopenia 10/15/2019 GENI positive 07/07/2019 PHT (pulmonary hypertension) 07/06/2019 Overview: Suspected on Echocardiogram when Hgb low. 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 Secondhand smoke exposure 07/06/2019 Environmental exposure 07/06/2019 Overview: Chickens, Ducks Pancytopenia documented as of this encounter (statuses as of 09/06/2023) Immunizations Name Administration Dates Next Due Pneumococcal [...] Sign Reading Time Taken Comments Blood Pressure 132/64 08/13/2023 1:28 PM EST Pulse 72 08/13/2023 1:28 PM EST Temperature 36.9 C (98.5 F) 08/13/2023 1:28 PM ES T Respiratory Rate 16 08/13/2023 1:28 PM EST Oxygen Saturation - - Inhaled Oxygen Concentration - - Weight 83.5 kg (184 lb) 08/13/2023 1:28 PM EST Height 168.9 cm (5' 6.5") 08/13/2023 1:28 PM EST Body Mass Index 29.25 08/13/2023 1:28 PM EST documented in this encounter Progress Notes * Sarah Galaviz, DO - 08/13/2023 1:48 PM EST Subjective: Marianne Chand is a 62 year old female. Chief Complaint Patient presents with Emergency Department Follow-Up [facility] 08/05/23 for cough, Medication Administration Flu and/or Pneumo Inj HPI: Pt presents for ER follow up. She was referred there after being seen in the office for cold sx on 08/05/23. Referred to ED for several lab abnormalities included elevated LFTs and anemia, hgb 8.6. Pt continues to c/o sore throat, persistant cough and hoarseness, worse when outside in the cold. CXR was negative for PNA. Does have some increased AGUILAR - especially w/stairs and walking a distance. This has been chronic but is worse recently. Pt denies signs of bleeding - no blood in stools or dark tarry stools. Pt reports hemoccult in the ED was negative. Pt reports she could "probably eat better", has a lot of cakes, does eat vegetables, not as much meat. Pt w/hx of elevated LFTs that "go up and down" has had yellowing of the eyes for a while, not necessarily worse. Was to have IR liver biopsy, never completed. GENI, anti mitochondrial antibody and anti smooth muscle antibody was positive in the past. No family hx of liver disease. Pt denies drinkingetoh. PHM: Patient Active Problem List Diagnosis Code Pancytopenia (HCC) D61.818 PHT (pulmonary hypertension) (HCC) I27.20 Tobacco abuse, in remission F17.201 Secondhand smoke exposure Z77.22 Environmental exposure T75.89XA GENI positive R76.8 Thrombocytopenia (HCC) D69.6 Unspecified cirrhosis of liver (HCC) K74.60 Current Outpatient Medications Medication Sig Dispense Refill Acetaminophen ER (TYLENOL 8 HOUR ARTHRITIS PAIN) 650 MG TBCR Take 1 Tablet by mouth every 8 hours as needed for Fever. GENERIC EXTERNAL MEDICATION Balance of nature- fruit [...] MOUTH in the morning. 30 Tablet 5 Fluticasone Propionate 50 MCG/ACT Nasal Suspension Administer 2 Sprays into each nostril daily. (Patient not taking: Reported on 08/13/2023) 16 g 3 Current Facility-Administered Medications Medication Dose Route Frequency Provider Last Rate Last Admin albuterol sulfate (PROVENTIL) (2.5 MG/3ML) 0.083% inhalation solution 2.5 mg 2.5 mg Nebulizer Q4H PRN Ray Rose DO 2.5 mg at 07/09/19 2598 Past Medical History: Diagnosis Date Allergic rhinitis Anxiety state ? anxiety attack. Environmental exposure 07/06/2019 Chickens, Ducks Pancytopenia (HCC) PHT (pulmonary hypertension) (HCC) 07/06/2019 Suspected on Echocardiogram when Hgb low. 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 Past Surgical History: Procedure Laterality Date D&C AFTER DELIVERY after ectopic, left ovary and tube removed LIGATE/CUT OVIDUCT(S) RIGHT HEART CATH W/ O2 SAT AND CO Left 03/03/2020 RIGHT HEART CATH W/ O2 SAT AND CO performed by Eyal Tom MD at [facility] Review of patient's allergies indicates: No Known Allergies Objective: BP 132/64 (BP Site: Left Arm, BP Position: Sitting, BP Cuff Size: Regular) | Pulse 72 | Temp 36.9 C (98.5 F) (Tympanic) | Resp 16 | Ht 1.689 m (5' 6.5") | Wt 83.5 kg (184 lb) | BMI 29.25 kg/m |BSA 1.98 m Review of Systems: As per HPI, all other ROS neg. Physical Exam: General: alert, healthy, no distress, well nourished and well developed Head: Normocephalic, No masses, lesions, tenderness or abnormalities Ears: External ears normal, Canals clear, TM's Normal Nose: no mucosal erythema, no mucosal edema, no purulent discharge, no septal hematoma Oropharynx: no exudate, no erythema, lips, buccal mucosa, and tongue normal and mucous membranes are moist Neck: supple, no adenopathy, thyroid normal size, non-tender, without nodularity Heart: regular rate & rhythm, no murmurs and no gallops Lungs: chest symmetric with normal AP diameter, no chest deformities noted, lungs clear to auscultation Abdomen: abdomen soft, non-tender, normal bowel sounds and no masses or organomegaly Extremities: no joint deformities, effusion, or inflammation, no edema, no clubbing, no cyanosis Anemia, unspecified type (Primary) - CBC WITH WBC DIFFERENTIAL AND ANEMIA REFLEX WORKUP; Future; Expected date: 08/13/2023 - US ENDOSCOPIC; Future; Expected date: 08/13/2023 - COLONOSCOPY, GI REFERRAL OP Hepatic cirrhosis, unspecified hepatic cirrhosis type, unspecified whether ascites present (HCC) - US ENDOSCOPIC; Future; Expected date: 08/13/2023 - COMPREHENSIVE METABOLIC PANEL; Future; Expected date: 08/13/2023 Acute bronchitis, antibiotics not indicated - predniSONE 20 MG Oral Tablet (Deltasone); Take 2 Tablets by mouth in the morning for 5 days. - Albuterol Sulfate HFA 108 (90 Base) MCG/ACT Inhalation Aerosol Solution; Inhale 2 Puffs by mouth every 6 hours as needed (chest tightness, sob). Special screening for malignant neoplasms, colon Need for prophylactic vaccination and inoculation against influenza - INFLUENZA VACC, QUAD, PF, 6 MONTHS & UP, 0.5 ML, IM Follow up: as needed. Sarah Galaviz DO * Tonya Carrillo RN - 08/13/2023 1:31 PM EST PRE - ADMINISTRATION DOCUMENTATION Are you experiencing any cold symptoms or fever? No Have you had Guillain-Cadyville Syndrome (an illness that causes paralysis) within the last 6 weeks? No Have you had the flu shot in the past? YES Have you ever had a reaction to the flu shot? No Tonya Carrillo RN, 08/13/2023 1:31 PM Immunization Administration Documentation Time Out Procedure Performed: Yes Patient Identified (Ask Name/Date of ): Yes Does the patient have a fever greater than 101 degrees today? No Patient allergic to latex? No VFC Stock: No Immunization(s) verified: Yes, Immunization Name: Flu, VIS Sheet(s) given: Yes Verified Side and Site: Yes Verified Shot(s) with Parent(s)/Patient: Yes documented in this encounter Plan of Treatment Upcoming Encounters Date Type Department Care Team (Latest Contact Info) Description 09/27/2023 3:45 PM EST Imaging Radiology [address] [place] [address] 10/16/2023 8:45 AM EST Hospital Encounter ENDO [facility], Endoscopy Room [facility] [address] [address] Favian Escalante MD [address] [place] [address] 10/16/2023 8:45 AM EST - 10/16/2023 9:30 AM EST Surgery ENDO [facility], Endoscopy Room [facility] [address] [place] [address] Favian Escalante MD [address] [place] [address] ESOPHAGOGASTRODUODENOSCOPY (EGD), FLEXIBLE, TRANSORAL, ENDOSCOPIC ULTRASOUND 10/23/2023 10:40 AM EST Office Visit Hepatology, [facility] [address] [facility] [place] [address] Evangelina Dorado, DO 132 [facility] [place] [address] 10/31/2023 12:20 PM EST Office Visit Pulmonary Medicine, [facility] [address] [facility] [place] [address] Ray Rose, DO [address] [place] [address] 11/13/2023 9:00 AM EST Office Visit Rheumatology [place] [address] [employer] [place] [address] Maico Carrillo CRNP [address] [place] [address] [place], [place] [address] 02/11/2024 1:00 PM EDT Office Visit Family Practice [facility] [address] [facility] [place] [address] Sarah Galaviz, DO 132 [facility] [place] [address] Scheduled Orders Name Type Priority Associated Diagnoses Orde r Schedule US ENDOSCOPIC Medical Imaging Routine Anemia, unspecified type Hepatic cirrhosis, unspecified hepatic cirrhosis type, unspecified whether ascites present (HCC) Expected: 08/13/2023, Expires: 09/12/2024 Scheduled Procedures Name Priority Associated Diagnoses Date/Ti me ESOPHAGOGASTRODUODENOSCOPY ( EGD), FLEXIBLE, TRANSORAL, ENDOSCOPIC ULTRASOUND Hepatic cirrhosis, unspecified hepatic cirrhosis type, unspecified whether ascites present (HCC) Anemia, unspecified type 10/16/2023 8:45 AM EST Scheduled Referrals Name Type Priority Associated Diagnoses Orde r Schedule COLONOSCOPY, GI REFERRAL OP Referral Within 10 days (routine) Anemia, unspecified type Ordered: 08/13/2023 Health Maintenance Due Date Last Done Comments [...] 10/15/2019 LUNG CANCER SCREENING - USE SMARTSET [id number] Completed 07/09/2019 Zoster Vaccines Completed 07/10/2020, 04/14/2020 [...] as of this encounter Results * (ABNORMAL) COMPREHENSIVE METABOLIC PANEL (08/13/2023 2:45 PM EST) BUN 13 6 - 20 mg/dL 08/13/2023 4:04 PM EST [facility] [place] Creatinine 1.0 0.5 - 1.0 mg/dL 08/13/2023 4:04 PM EST [facility] [place] [facility] Estimated Glomerular Filtration Rate 68 >=60 mL/min 08/13/2023 4:04 PM EST [facility] [place] [facility] Comment:eGFR is calculated b ased on the CKD-EPI 2020 equation Sodium 140 135 - 146 mmol/L 08/13/2023 4:04 PM EST [facility] [place] [facility] Potassium 4.1 3.5 - 5.1 mmol/L 08/13/2023 4:04 PM EST [facility] [place] [facility] Chloride 108(H) 98 - 107 mmol/L 08/13/2023 4:04 PM EST [facility] [place] [facility] CO2 19(L) 22 - 32 mmol/L 08/13/2023 4:04 PM EST [facility] [place] [facility] Anion Gap 13 7 - 15 mmol/L 08/13/2023 4:04 PM EST [facility] [place] [facility] Glucose 93 70 - 120 mg/dL 08/13/2023 4:04 PM EST [facility] [place] [facility] Albumin 3.9 3.8 - 5.0 g/dL 08/13/2023 4:04 PM EST [facility] [place] [facility] AST 56(H) 10 - 35 U/L 08/13/2023 4:04 PM EST [facility] [place] [facility] Comment:Result may be falsel y elevated due to hemolysis. Alkaline Phosphatase 145(H) 35 - 130 U/L 08/13/2023 4:04 PM EST [facility] [place] [facility] Bilirubin, Total 10.2(H) <=1.2 mg/dL 08/13/2023 4:04 PM EST [facility] [place] [facility] Calcium 9.3 8.4 - 10.2 mg/dL 08/13/2023 4:04 PM EST [facility] [place] [facility] Protein 7.3 6.0 - 8.3 g/dL 08/13/2023 4:04 PM EST [facility] [place] [facility] ALT 32 10 - 35 U/L 08/13/2023 4:04 PM EST [facility] [place] [facility] Blood Venous blood specimen / Unknown Venipuncture / Unknown 08/13/2023 2:45 PM EST 08/13/2023 2:45 PM EST Sarah Galaviz DO LAB BLOOD ORDERABLE S [facility] [place] [facility] [place] [address] documented in this encounter Visit Diagnoses Diagnosis Anemia, unspecified type- Primary Hepatic cirrhosis, unspecified hepatic cirrhosis type, unspecified whether ascites present (HCC) Acute bronchitis, antibiotics not indicated Acute bronchitis Special screening for malignant neoplasms, colon Need for prophylactic vaccination and inoculation against influenza Hepatic cirrhosis, unspecified hepatic cirrhosis type, unspecified whether ascites present (HCC) Anemia, unspecified type documented in this encounter Care Teams Double End Trimmer Relationship Specialty Start Date End Date Sarah Galaviz DO [address] [place] [address] PCP - General Family Medicine 06/30/19 documented as of this encounter
--- OUTSIDE RECORDS SUMMARY | 2023-12-10 20:26 | External Medical Summary | Summary of Care ---
Author Name Unknown Organization [facility] Address [address] [facility] [place] [address] Phone [phone] Care Team Providers Care Relay Shop Supervisor Name Role Phone Sarah Galaviz DO Primary Care Provider [phone] Encounter Details Date Type Department Care Team (Late st Contact Info) Description 10/01/2023 Orders Only PATIENT PORTAL DO NOT DELETE THIS DEPT USED BY [place] [id number] Allergies No known active allergiesdocumented as of this encounter (statuses as of 10/01/2023) Medications Medication Sig Dispensed Refills Start Date [...] as of this encounter (statuses as of 10/01/2023) Active Problems Problem Noted Date Diagnosed Date Unspecified cirrhosis of liver 04/14/2020 Thrombocytopenia 10/15/2019 GENI positive 07/07/2019 PHT (pulmonary hypertension) 07/06/2019 Overview: Suspected on Echocardiogram when Hgb low. 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 Secondhand smoke exposure 07/06/2019 Environmental exposure 07/06/2019 Overview: Chickens, Ducks Pancytopenia documented as of this encounter (statuses as of 10/01/2023) Immunizations Name Administration Dates Next Due Pneumococcal [...] EST Hospital Encounter ENDO OSSC, Endoscopy Room [facility] [address] [place] [address] Favian Escalante MD [address] [place] [address] 10/16/2023 8:45 AM EST - 10/16/2023 9:30 AM EST Surgery ENDO OSS[facility], Endoscopy Room [facility] [address] [place] [address] Favian Escalante MD [address] [place] [address] ESOPHAGOGASTRODUODENOSCOPY (EGD), FLEXIBLE, TRANSORAL, ENDOSCOPIC ULTRASOUND 10/23/2023 10:40 AM EST Office Visit Hepatology, [facility] [address] [place] [address] Evangelina Dorado DO [address] [place] [address] 10/31/2023 12:20 PM EST Office Visit Pulmonary Medicine, [facility] [address] [place] [address] Ray Rose, DO [address] [facility] [place], [place] [address] 11/13/2023 9:00 AM EST Office Visit Rheumatology [facility] [address] [facility] [place] [address] Maico Carrillo CRNP [address] [place] [address] 02/11/2024 1:00 PM EDT Office Visit Family Practice [facility] [address] [facility] [place] [address] Sarah Galaviz, [address] [place] [address] Scheduled Procedures Name Priority Associated Diagnoses Date/Ti [...] 10/09/2017, 11/10/2010, Additional history exists Diabetes Screening 08/21/2026 08/21/2023, 1 10/13/2022, 08/05/2023, Additional history exists DTaP,Tdap,and Td Vaccines (2 - Td or Tdap) 10/15/2029 10/15/2019 LUNG CANCER SCREENING - USE SMARTSET [id number] Completed 07/09/2019 Zoster Vaccines Completed 07/10/2020, 04/14/2020 [...] filedocumented as of this encounter Care Teams Relay Shop Supervisor Relationship Specialty Start Date End Date Sarah Galaviz DO [address] [place] [address] PCP - General Family Medicine 06/30/19 documented as of this encounter
--- OUTSIDE RECORDS SUMMARY | 2023-12-10 20:26 | External Medical Summary ---
Author Name Unknown Address Unknown Organization [id number]:LABORATORY [facility] - [address] [facility] [address] [place] [address] Laboratory Report Ordering Provider Test Date Status BRYAN RAUSCH 10/23/2023 11:14:57 Final Observation Date Value Abnormality Reference (Units ) Status Alpha-Fetoprotein 10/23/2023 11:14:57 1.9 0. 0-8.3 (ng/mL) Final Performing Location LABORATORY C - [address] [place] [address]
--- OUTSIDE RECORDS SUMMARY | 2023-12-10 20:26 | External Medical Summary | Summary of Care ---
Author Name Unknown Organization [facility] Address [address] [place] [address] Phone [phone] Care Team Providers Care Rn Eligibility Name Role Phone Sarah Galaviz DO Primary Care Provider [phone] Reason for Visit * Reason Onset Date Comments MyCode Nonconsent - Not interested at this time 10/02/2023 Encounter Details Date Type Department Care Team (Late st Contact Info) Description 10/02/2023 Orders Only Outcomes Research Department [address] [place] [address] Kathryn Sanchez CHRA MyCode Nonconsent Documentation Allergies No known active allergiesdocumented as of [...] 05/27/2019 Smokeless Tobacco: Never Comments:stopped smoking whi bruno having kids Alcohol Use Standard Drinks/Week Comments [...] as of this encounter Progress Notes * Kathryn Sanchez CHRA - 10/02/2023 8:56 AM EST MyCode Nonconsent Documentation Marianne Mercedes Huphani was approached in the clinic regarding participation in the MyCode Project and did not consent. documented in this encounter Plan of Treatment Upcoming Encounters Date Type Department Care Team (Latest Contact Info) Description 10/16/2023 8:45 AM EST Hospital Encounter ENDO OSS, Endoscopy Room [facility] [address] [place] [phone] Favian Escalante MD [address] [place] [address] 10/16/2023 8:45 AM EST - 10/16/2023 9:30 AM EST Surgery ENDO OSS, Endoscopy Room [facility] [address] [place] [address] Favian Escalante MD [address] [place] [address] ESOPHAGOGASTRODUODENOSCOPY (EGD), FLEXIBLE, TRANSORAL, ENDOSCOPIC ULTRASOUND 10/23/2023 10:40 AM EST Office Visit Hepatology, [facility] [address] [place] [address] Evangelina Dorado, DO 132 [place] [address] 10/31/2023 12:20 PM EST Office Visit Pulmonary Medicine, [facility] 132 [facility] [place] [address] Ray Rose, DO [address] [place] [address] 11/13/2023 9:00 AM EST Office Visit Rheumatology [place] [id number] [place] [address] Maico Carrillo CRNP [address] [place] [address] [place] [address] 02/11/2024 1:00 PM EDT Office Visit Family Practice [facility] [address] [place] [address] Sarah Galaviz, DO 132 [place] [address] Scheduled Procedures Name Priority Associated Diagnoses Date/Ti [...] 10/15/2019 LUNG CANCER SCREENING - USE SMARTSET [id number] Completed 07/09/2019 Zoster Vaccines Completed 07/10/2020, 04/14/2020 [...] filedocumented as of this encounter Care Teams Rn Eligibility Relationship Specialty Start Date End Date Sarah Galaviz DO [address] [place] [address] PCP - General Family Medicine 06/30/19 documented as of this encounter
--- OUTSIDE RECORDS SUMMARY | 2023-12-10 20:27 | External Medical Summary | Summary of Care ---
Author Name Unknown Organization [facility] Address [address] [facility] [place] [address] Phone [phone] Care Team Providers Care City Dispatch Supervisor Name Role Phone Sarah Galaviz DO Primary Care Provider [phone] Reason for Visit * Reason Comments Outpatient Testing Encounter Details Date Type Department Care Team (Late st Contact Info) Description 08/21/2023 2:40 PM EST Laboratory Laboratory [facility] [place] [address] [place] [phone] [facility] [address] [facility] [place] [address] Pancytopenia (HCC); Thrombocytopenia (HCC); Anemia, unspecified type; GENI positive Allergies No known active allergiesdocumented as of this encounter (statuses as of 08/21/2023) Medications Medication Sig Dispensed Refills Start Date [...] as of this encounter (statuses as of 08/21/2023) Active Problems Problem Noted Date Diagnosed Date Unspecified cirrhosis of liver 04/14/2020 Thrombocytopenia 10/15/2019 GENI positive 07/07/2019 PHT (pulmonary hypertension) 07/06/2019 Overview: Suspected on Echocardiogram when Hgb low. 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 Secondhand smoke exposure 07/06/2019 Environmental exposure 07/06/2019 Overview: Chickens, Ducks Pancytopenia documented as of this encounter (statuses as of 08/21/2023) Immunizations Name Administration Dates Next Due Pneumococcal Polysaccharide PPV23 (Pneumovax) 04/21/2020 SEASONAL INFLUENZA, PF, 6 M & Above, IM , (FLULAVAL or FLUZONE) 08/13/2023,07/10/2020,10/15/2019 Seasonal Influenza Virus Vac cine, Unspecified Formulation 10/15/2019 TDAP (age 10 and older)(Boostrix) 10/15/2019 Zoster [...] Department Care Team (Latest Contact Info) Description 08/27/2023 11:00 AM EST Office Visit Cardiology, [facility] [address] [place] [address] Manish Rosales DO [address] [place] [address] 10/16/2023 8:45 AM EST Hospital Encounter ENDO OSSC, Endoscopy Room [facility] [address] [place] [phone] Favian Escalante MD [address] [place] [address] 10/16/2023 8:45 AM EST - 10/16/2023 9:30 AM EST Surgery ENDO OSSC, Endoscopy Room [facility] [address] [place] [address] Favian Escalante MD [address] [place] [address] ESOPHAGOGASTRODUODENOSCOPY (EGD), FLEXIBLE, TRANSORAL, ENDOSCOPIC ULTRASOUND 10/31/2023 12:20 PM EST Office Visit Pulmonary Medicine, [facility] [address] [facility] [place] [address] Ray Rose, DO [address] [facility] [place] [place] [address] 11/13/2023 9:00 AM EST Office Visit Rheumatology [facility] [address] [facility] [place] [address] Maico Carrillo CRNP [address] [facility] [place], [place] [address] 12/01/2023 12:40 PM EDT Office Visit Hepatology, [facility] [address] [facility] [place] [address] Evangelina Dorado, DO [address] [place] [address] 02/11/2024 1:00 PM EDT Office Visit Family Practice [facility] [address] [facility] [place] [address] Sarah Galaviz, DO [address] [facility] [place] [address] Pending Results Name Type Priority Associated Diagnoses Date /Time CBC WITH WBC DIFFERENTIAL Lab STAT Pancytopenia (HCC) Thrombocytopenia (HCC) Anemia, unspecified type GENI positive 08/21/2023 4:51 PM EST COMPREHENSIVE METABOLIC PANEL Lab STAT Pancytopenia (HCC) Thrombocytopenia (HCC) Anemia, unspecified type GENI positive 08/21/2023 4:51 PM EST IRON SCREEN, INCLUDING TIBC Lab STAT Pancytopenia (HCC) Thrombocytopenia (HCC) Anemia, unspecified type GENI positive 08/21/2023 4:51 PM EST FERRITIN Lab STAT Pancytopenia (HCC) Thrombocytopenia (HCC) Anemia, unspecified type GENI positive 08/21/2023 4:51 PM EST HAPTOGLOBIN Lab STAT Pancytopenia (HCC) Thrombocytopenia (HCC) Anemia, unspecified type GENI positive 08/21/2023 4:51 PM EST RETICULOCYTE PANEL Lab Routine Pancytopenia (HCC) Thrombocytopenia (HCC) Anemia, unspecified type GENI positive 08/21/2023 4:51 PM EST LD Lab STAT Pancytopenia (HCC) Thrombocytopenia (HCC) Anemia, unspecified type GENI positive 08/21/2023 4:51 PM EST COLD HEMAGGLUTININS Lab STAT Pancytopenia (HCC) Thrombocytopenia (HCC) Anemia, unspecified type GENI positive 08/21/2023 4:51 PM EST DIRECT CLYDE Lab STAT Pancytopenia (HCC) Thrombocytopenia (HCC) Anemia, unspecified type GENI positive 08/21/2023 4:51 PM EST SERUM PROTEIN ELECTROPHORESIS REFLEX PROFILE Lab STAT Pancytopenia (HCC) Thrombocytopenia (HCC) Anemia, unspecified type GENI positive 08/21/2023 4:51 PM EST SERUM FREE LIGHT CHAINS Lab STAT Pancytopenia (HCC) Thrombocytopenia (HCC) Anemia, unspecified type GENI positive 08/21/2023 4:51 PM EST IMMUNOGLOBULIN QUANTITATIVE Lab STAT Pancytopenia (HCC) Thrombocytopenia (HCC) Anemia, unspecified type GENI positive 08/21/2023 4:51 PM EST BILIRUBIN, DIRECT Lab STAT Pancytopenia (HCC) Thrombocytopenia (HCC) Anemia, unspecified type GENI positive 08/21/2023 4:51 PM EST SCHISTOCYTES, TECHNOLOGIST REVIEW Lab STAT Pancytopenia (HCC) Thrombocytopenia (HCC) Anemia, unspecified type GENI positive 08/21/2023 4:51 PM EST CBC Lab Routine Pancytopenia (HCC) Thrombocytopenia (HCC) Anemia, unspecified type GENI positive 08/21/2023 4:51 PM EST DIFFERENTIAL, AUTOMATED Lab Routine Pancytopenia (HCC) Thrombocytopenia (HCC) Anemia, unspecified type GENI positive 08/21/2023 4:51 PM EST SCHISTOCYTES, TECHNOLOGIST REVIEW Lab Routine Pancytopenia (HCC) Thrombocytopenia (HCC) Anemia, unspecified type GENI positive 08/21/2023 4:51 PM EST Scheduled Procedures Name Priority Associated Diagnoses [...] 06/17, 11/10/2010, Additional history exists Diabetes Screening 08/13/2026 08/13/2023, 1 10/05/2022, 04/18/2021, Additional history exists DTaP,Tdap,and Td Vaccines (2 - Td or Tdap) 10/15/2029 10/15/2019 LUNG CANCER SCREENING - USE SMARTSET 04524 Completed 07/09/2019 Zoster Vaccines Completed 07/10/2020, 04/14/2020 [...] Visit Diagnoses Diagnosis Pancytopenia (HCC) Other pancytopenia Thrombocytopenia (HCC) Thrombocytopenia, unspecified Anemia, unspecified type GENI positive Other and unspecified nonspecific immunological findings Hepatic cirrhosis, unspecified hepatic cirrhosis type, unspecified whether ascites present (HCC) Anemia, unspecified type documented in this encounter Care Teams City Dispatch Supervisor Relationship Specialty Start Date End Date Sarah Galaviz DO [address] [place] [address] [place] [address] PCP - General Family Medicine 06/30/19 documented as of this encounter
--- OUTSIDE RECORDS SUMMARY | 2023-12-10 20:27 | External Medical Summary ---
Author Name Unknown Address Unknown Organization K01:LABORATORY [facility] - [address] [place] [address] Laboratory Report Ordering Provider Test Date Status ALEA MEJIAS 08/21/2023 16:51:26 Final Observation Date Value Abnormality Reference (Units ) Status Bilirubin, Direct 08/21/2023 16:51:26 0.7 Above high normal 0.0-0.3 (mg/dL) Final Performing Location LABORATORY C - [address] [place] [address]
--- OUTSIDE RECORDS SUMMARY | 2023-12-10 20:27 | External Medical Summary ---
Author Name Unknown Address Unknown Organization K01:LABORATORY [facility] - [address] [place] [address] Laboratory Report Ordering Provider Test Date Status RANDELLALEA 08/21/2023 16:51:26 Final Observation Date Value Abnormality Reference (Units ) Status Haptoglobin 08/21/2023 16:51:26 14 Below low normal 3 0-200 (mg/dL) Final Performing Location LABORATORY [facility] - [address] [place] [address]
--- OUTSIDE RECORDS SUMMARY | 2023-12-10 20:27 | External Medical Summary | Summary of Care ---
Author Name Unknown Organization [facility] Address [address] [facility] [place] [address] Phone [phone] Care Team Providers Care Cashier Name Role Phone Sarah Galaviz DO Primary Care Provider [phone] Reason for Visit * Reason Onset Date Comments Health Maintenance 08/19/2023 Encounter Details Date Type Department Care Team (Late st Contact Info) Description 08/19/2023 Telephone Family Practice [facility] [address] [place] [address] Sarah Galaviz DO [address] [place] [address] Health Maintenance Allergies No known active allergiesdocumented as of this encounter (statuses as of 08/19/2023) Medications Medication Sig Dispensed Refills Start Date [...] MG Oral Tablet (Revatio)Indications :PHT (pulmonary hypertension) ([facility]) Take 1 Tablet by mouth in the [...] tightness, sob). 18 g 1 08/13/2023 Active Hospital, Clinic, or Other Facility Administered Medication Ordered Dose Route Frequency Start Date End Date Status albuterol sulfate (PROVENTIL) (2.5 MG/3ML) 0.083% inhalation solution 2.5 mgIndications:PHT (pulmonary hypertension) (HCC),Tobacco abuse, in remission,Pancytopenia (HCC),Environmental exposure,Secondhand smoke exposure 2.5 mg NEBULIZER Q4H PRN 07/08/2019 Active documented as of this encounter (statuses as of 08/19/2023) Active Problems Problem Noted Date Diagnosed Date Unspecified cirrhosis of liver 04/14/2020 Thrombocytopenia 10/15/2019 GENI positive 07/07/2019 PHT (pulmonary hypertension) 07/06/2019 Overview: Suspected on Echocardiogram when Hgb low. 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 Secondhand smoke exposure 07/06/2019 Environmental exposure 07/06/2019 Overview: Chickens, Ducks Pancytopenia documented as of this encounter (statuses as of 08/19/2023) Immunizations Name Administration Dates Next Due Pneumococcal [...] encounter Miscellaneous Notes * Telephone Encounter - Jenny Paniagua LPN - 08/19/2023 8:42 AM EST Care Gaps Comprehensive Care Outreach Last Office/Telemedicine Visit: 08/13/2023 (in office), Visit date not found (telemedicine) Next Office Visit: 02/11/2024 Hemoglobin AIC Results: No results found for: "HEMOGLOBIN A1C" Reviewed Health Maintenance below: Health Maintenance Topic Date Due COVID-19 Vaccine (1) Never done HIV Screening Never done Hepatitis C Screening Never done Colorectal Cancer Screening Never done Cervical Cancer Screening 11/26/2013 Mammogram 11/11/2020 Colon just cancelled yesterday Pap mamm Care Gap Outreach Action Taken: Unable to reach vm full documented in this encounter Plan of Treatment Upcoming Encounters Date Type Department Care Team (Latest Contact Info) Description 08/21/2023 3:30 PM EST Office Visit Hematology/On[facility] [place] [address] [place] [phone] Tammy Hammond CRNP [address] [place] [address] [place] [address] 08/27/2023 11:00 AM EST Office Visit Cardiology, [facility] 132 [facility] [place] [address] Manish Rosales, DO [address] [place], [place] [address] 10/16/2023 8:45 AM EST Hospital Encounter ENDO OSS, Endoscopy Room [facility] [address] [place], [place] [address] Favian Escalante MD [address] [place] [address] 10/16/2023 8:45 AM EST - 10/16/2023 9:30 AM EST Surgery ENDO [facility], Endoscopy Room [facility] [address] [place] [address] Favian Escalante MD [address] [place] [address] ESOPHAGOGASTRODUODENOSCOPY (EGD), FLEXIBLE, TRANSORAL, ENDOSCOPIC ULTRASOUND 10/31/2023 12:20 PM EST Office Visit Pulmonary Medicine, [facility] [place] [address] Ray Rose, DO [address] [facility], [place] [address] 11/13/2023 9:00 AM EST Office Visit Rheumatology [place] [phone] [facility] [place], [place] [address] Maico Carrillo CRNP [address] [place] [address] [place], [place] [address] 12/01/2023 12:40 PM EDT Office Visit Hepatology, [facility] [address] [facility] [place] [address] Evangelina Dorado DO [address] [place] [address] 02/11/2024 1:00 PM EDT Office Visit Family Practice [facility] [address] [place] [address] Sarah Galaviz DO [address] [place] [address] Scheduled Procedures Name Priority Associated Diagnoses Date/Ti [...] 10/15/2019 LUNG CANCER SCREENING - USE SMARTSET [id number] Completed 07/09/2019 Zoster Vaccines Completed 07/10/2020, 04/14/2020 [...] filedocumented as of this encounter Care Teams Cashier Relationship Specialty Start Date End Date Sarah Galaviz DO [address] [place] [address] PCP - General Family Medicine 06/30/19 documented as of this encounter
--- OUTSIDE RECORDS SUMMARY | 2023-12-10 20:27 | External Medical Summary ---
Author Name Unknown Address Unknown Organization K01:LABORATORY C - [address] [place] [address] Laboratory Report Ordering Provider Test Date Status ALEA MEJIAS 08/21/2023 16:51:26 Final Observation Date Value Abnormality Reference (Units ) Status BUN 08/21/2023 16:51:26 12 6-20 (mg/dL) Final Creatinine 08/21/2023 16:51:26 0.9 0.5-1.0 (mg/dL) Final Glomerular filtration rate/1.73 sq M.predicted [Volume Rate/Area] in Serum, Plasma or Blood by Creatinine-based formula (CKD-EPI) 08/21/2023 16:51:26 75 >=60 (mL/min) Final eGFR is calculated based on the CKD-EPI 2020 equation SODIUM 08/21/2023 16:51:26 141 135-146 (m mol/L) Final Potassium 08/21/2023 16:51:26 3.5 3.5-5.1 (m mol/L) Final Cl 08/21/2023 16:51:26 107 98-107 (mm ol/L) Final CO2 08/21/2023 16:51:26 19 Below low normal 22- 32 (mmol/L) Final Anion gap 08/21/2023 16:51:26 15 7-15 (mmol /L) Final Glucose 08/21/2023 16:51:26 89 70-120 (mg /dL) Final Albumin 08/21/2023 16:51:26 4.2 3.8-5.0 (g /dL) Final AST (Aspartate aminotransferase) 08/21/2023 16:51:26 36 Above high normal 10-35 (U/L) Final Alk Phos 08/21/2023 16:51:26 130 35-130 (U/ L) Final Bilirubin, Total 08/21/2023 16:51:26 8.3 Above high no rmal <=1.2 (mg/dL) Final Calcium 08/21/2023 16:51:26 8.9 8.4-10.2 ( mg/dL) Final Protein 08/21/2023 16:51:26 7.2 6.0-8.3 (g /dL) Final ALT (Alanine aminotransferase) 08/21/2023 16:51:26 35 10-35 (U/L) Yanick mack Performing Location LABORATORY [facility] - [facility] [address] [place] [facility] [address]
--- OUTSIDE RECORDS SUMMARY | 2023-12-10 20:27 | External Medical Summary | Summary of Care ---
Author Name Unknown Organization [facility] Address [address] [facility] [place] [address] Phone [phone] Care Team Providers Care Analysis Director Name Role Phone Sarah Galaviz DO Primary Care Provider [phone] Encounter Details Date Type Department Care Team (Late st Contact Info) Description 08/14/2023 Telephone OR [facility], Operating Room [facility] [address] [place] [address] Favian Escalante MD [address] [place] [address] Allergies No known active allergiesdocumented as of this encounter (statuses as of 08/15/2023) Medications Medication Sig Dispensed Refills Start Date [...] the morning. 30 Tablet 5 06/20/2023 Active predniSONE 20 MG Oral Tablet (Deltasone)Indicati ons:Acute bronchitis, antibiotics not indicated Take 2 Tablets by mouth in the morning for 5 days. 10 Tablet 0 08/13/2023 08/18/2023 Active Albuterol Sulfate HFA 108 (90 Base) [...] as of this encounter (statuses as of 08/15/2023) Active Problems Problem Noted Date Diagnosed Date Unspecified cirrhosis of liver 04/14/2020 Thrombocytopenia 10/15/2019 GENI positive 07/07/2019 PHT (pulmonary hypertension) 07/06/2019 Overview: Suspected on Echocardiogram when Hgb low. 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 Secondhand smoke exposure 07/06/2019 Environmental exposure 07/06/2019 Overview: Chickens, Ducks Pancytopenia documented as of this encounter (statuses as of 08/15/2023) Immunizations Name Administration Dates Next Due Pneumococcal [...] encounter Miscellaneous Notes * Telephone Encounter - Chris Lo OSA - 08/15/2023 11:55 AM EST LMcell informing pt that procedure for 08/18 has been cx'd d/t not returning PAT phone calls. * Telephone Encounter - Chris Lo OSA - 08/15/2023 8:56 AM EST LMcell asking pt to return call [facility] for PAT eval. Message left that if call is not returned by noon today, procedure for tomorrow will be canceled. * Telephone Encounter - Amna Nascimento RN - 08/15/2023 7:58 AM EST Attempted to call for pre anesthesia evaluation. No answer. Voice mail left requesting return call * Telephone Encounter - Amna Nascimento RN - 08/14/2023 8:52 AM EST Attempted to call for pre anesthesia evaluation. No answer. Voice mail left requesting return call documented in this encounter Plan of Treatment Upcoming Encounters Date Type Department Care Team (Latest Contact Info) Description 08/21/2023 3:30 PM EST Office Visit Hematology/Oncol hazel [place] [address] [place] [address] Tammy Hammond CRNP [address] [facility] [place] [address] 08/27/2023 11:00 AM EST Office Visit Cardiology, [facility] [address] [place] [address] Manish Rosales DO [address] [place] [address] 10/16/2023 8:45 AM EST Hospital Encounter ENDO [facility], Endoscopy Room [facility] [address] [place] [phone] Favian Escalante MD [address] [place] [address] 10/16/2023 8:45 AM EST - 10/16/2023 9:30 AM EST Surgery ENDO [facility], Endoscopy Room [facility] [address] [place] [phone] Favian Escalante MD [address] [place] [address] ESOPHAGOGASTRODUODENOSCOPY (EGD), FLEXIBLE, TRANSORAL, ENDOSCOPIC ULTRASOUND 10/31/2023 12:20 PM EST Office Visit Pulmonary Medicine, [facility] [address] [place] [address] Ray Rose DO [address] [facility] [place] [address] 11/13/2023 9:00 AM EST Office Visit Rheumatology [facility] [address] [facility] [place], [place] [address] Maico Carrillo CRNP [address] [facility] [place] [address] 12/01/2023 12:40 PM EDT Office Visit Hepatology, [facility] [address] [facility] [place] [address] Evangelina Dorado, DO [address] [place] [address] 02/11/2024 1:00 PM EDT Office Visit Family Practice [facility] [address] [facility] [place] [address] Sarah Galaviz, DO [address] [facility] [address] Scheduled Procedures Name Priority Associated Diagnoses Date/Ti [...] 10/15/2019 LUNG CANCER SCREENING - USE SMARTSET 675[address] Completed 07/09/2019 Zoster Vaccines Completed 07/10/2020, 04/14/2020 [...] filedocumented as of this encounter Care Teams Analysis Director Relationship Specialty Start Date End Date Sarah Galaviz DO [address] [place] [address] PCP - General Family Medicine 06/30/19 documented as of this encounter
--- OUTSIDE RECORDS SUMMARY | 2023-12-10 20:27 | External Medical Summary ---
Author Name Unknown Address Unknown Organization [id number]:[place] [facility] [facility] [place] [address] [place] [address] Laboratory Report Ordering Provider Test Date Status ALEA MEJIAS 08/21/2023 16:51:26 Final Observation Date Value Abnormality Reference (Units ) Status Ferritin 08/21/2023 16:51:26 18 13-150 (ng /mL) Final Postmenopausal women have hi gher ferritin levels than pre-menopausal women. The above reference interval is based on pre-menopausal women. Performing Location [facility] - [address] [place] [address]
--- OUTSIDE RECORDS SUMMARY | 2023-12-10 20:27 | External Medical Summary ---
Author Name Unknown Address Unknown Organization [id number]:[facility] - [address] [place] [address] Laboratory Report Ordering Provider Test Date Status ALEA MEJIAS 08/21/2023 16:51:26 Final Observation Date Value Abnormality Reference (Units ) Status SYNC LEUKOCYTES IN BLOOD BY AUTOMATED COUNT 08/21/2023 16:51:26 7.68 4.00-10.80 (K/uL) Final Segs 08/21/2023 16:51:26 53.4 40.0-75.0 (%) Final Lymphs % 08/21/2023 16:51:26 37.6 18.0-42.0 (%) Final Monos 08/21/2023 16:51:26 5.9 1.0-11.0 (%) Final Eosinophils 08/21/2023 16:51:26 2.1 0.0-6.0 (%) Final Basos 08/21/2023 16:51:26 0.5 0.0-2.0 (%) Final Immature Granulocyte, Percent 08/21/2023 16:51:26 0.5 0.0-2.0 (%) Final Absolute Segs 08/21/2023 16:51:26 4.10 1.80-7.70 (K/uL) Final Lymphs, absolute 08/21/2023 16:51:26 2.89 1.00-4.80 (K/ul) Final Monos, Abs 08/21/2023 16:51:26 0.45 0.00-1.10 (K/uL) Final Eos, Abs 08/21/2023 16:51:26 0.16 0.00-0.70 (K/uL) Final Basos, Abs 08/21/2023 16:51:26 0.04 0.00-0.20 (K/uL) Final Immature Granulocytes, Number 08/21/2023 16:51:26 0.04 0.00-0.20 (K/uL) Final Performing Location LAB[facility]ATORY [facility] - [address] [facility] [address]
--- OUTSIDE RECORDS SUMMARY | 2023-12-10 20:27 | External Medical Summary ---
Author Name Unknown Address Unknown Organization [id number]:LABORATORY [facility] – [place] - [address] [place] [address] Laboratory Report Ordering Provider Test Date Status MINERVA AUGUST 08/13/2023 14:45:35 Final Observation Date Value Abnormality Reference (Units ) Status Ferritin 08/13/2023 14:45:35 25 13-150 (ng /mL) Final Postmenopausal women have hi gher ferritin levels than pre-menopausal women. The above reference interval is based on pre-menopausal women. Performing Location [facility] - [address] [place] [address]
--- OUTSIDE RECORDS SUMMARY | 2023-12-10 20:27 | External Medical Summary ---
Author Name Unknown Address Unknown Organization K01:[facility] [place] [facility] [place] [address] Laboratory Report Ordering Provider Test Date Status MINERVA AUGUST 08/13/2023 14:45:35 Final Observation Date Value Abnormality Reference (Units ) Status Retic, % (auto) 08/13/2023 14:45:35 4.55 Above high normal 0.80-1.90 (%) Final Reticulocytes, Absolute 08/13/2023 14:45:35 149.2 Above high normal 31.3-100.1 (K/uL) Final Reticulocyte fraction, immature 08/13/2023 14:45:35 37.7 Above high normal 2.5-20.6 (%) Final Reticulocyte HGB 08/13/2023 14:45:35 25.8 Below low normal 29.7-37.4 (pg) Final Performing Location [facility] [place] [facility] [address] [facility] [address]
--- OUTSIDE RECORDS SUMMARY | 2023-12-10 20:27 | External Medical Summary ---
Author Name Unknown Address Unknown Organization [id number]:LABORATORY [facility] [place] [address] - [address] [place] [address] Laboratory Report Ordering Provider Test Date Status MINERVA AUGUST 08/13/2023 14:45:35 Final Observation Date Value Abnormality Reference (Units ) Status WBC, Total 08/13/2023 14:45:35 5.55 4.00-10.8 0 (K/uL) Final RBC 08/13/2023 14:45:35 3.33 3.85-5.15 (M/uL) Final Hemoglobin 08/13/2023 14:45:35 8.9 Below low normal 12 .0-15.3 (g/dL) Final Anemia reflex testing trigge rs on a HGB < 12.0 for Females and HGB < 13.0 for Males in accordance with the WHO Anemia Guidelines
Anemia reflex testing triggers on a HGB < 12.0 for Females and HGB < 13.0 for Males in accordance with the WHO Anemia Guidelines HCT 08/13/2023 14:45:35 30.0 Below low normal 36. 0-45.2 (%) Final MCV 08/13/2023 14:45:35 90.1 81.5-97.5 (fL) Final MCH 08/13/2023 14:45:35 26.7 27.0-34.0 (pg) Final MCHC 08/13/2023 14:45:35 29.7 32.0-36.0 (g/dL) Final RDW 08/13/2023 14:45:35 22.4 11.5-15.5 (%) Final Platelets 08/13/2023 14:45:35 72 Below low normal 140 -400 (K/uL) Final MPV 08/13/2023 14:45:35 10.8 6.6-11.1 ( fL) Final Performing Location LABORATORY [facility] [place] 57[address] 0 - [address] [place] [address]
--- OUTSIDE RECORDS SUMMARY | 2023-12-10 20:27 | External Medical Summary ---
Author Name Unknown Address Unknown Organization : Laboratory Report Ordering Provider Test Date Status ALEA MEJIAS 08/21/2023 16:51:26 Final Observation Date Value Abnormality Reference (Units ) Status Cold agglutinin [Titer] in Serum or Plasma by Agglutination 08/21/2023 16:51:26 SEE BELOW Final Cold Hemagglutinins None Det ected Titer
Reference range: None Detected

Test Performed at:
[facility]
[address] [facility]
[place] [address]
Chevy Marin M.D., Ph.D.,Director of Laboratories Performing Location
--- OUTSIDE RECORDS SUMMARY | 2023-12-10 20:27 | External Medical Summary ---
Author Name Unknown Address Unknown Organization K01:[place]ORY [facility] [place] [address] [place] [address] Laboratory Report Ordering Provider Test Date Status MINERVA AUGUST 08/13/2023 14:45:35 Final Observation Date Value Abnormality Reference (Units ) Status Folic Acid 08/13/2023 14:45:35 14.0 >4.5 (ng/ mL) Final Performing Location [facility] - [address] [place] [address]
--- OUTSIDE RECORDS SUMMARY | 2023-12-10 20:27 | External Medical Summary | Summary of Care ---
Author Name Unknown Organization [facility] Address [address] [facility] [place] [address] Phone [phone] Care Team Providers Care Brand Manager Name Role Phone Sarah Galaviz DO Primary Care Provider [phone] Reason for Visit * Reason Comments Outpatient Testing Encounter Details Date Type Department Care Team (Late st Contact Info) Description 08/21/2023 2:40 PM EST Laboratory Laboratory [facility] [place] [address] [place] [phone] [facility] 200 [facility] [place] [address] Pancytopenia (HCC); Thrombocytopenia (HCC); Anemia, unspecified type; [...] 08/27/2023 11:00 AM EST Office Visit Cardiology, [facility] [address] [place] [address] Manish Rosales DO [address] [place] [address] 10/16/2023 8:45 AM EST Hospital Encounter ENDO [facility], Endoscopy Room [facility] [address] [place] [phone] Favian Escalante MD [address] [place] [address] 10/16/2023 8:45 AM EST - 10/16/2023 9:30 AM EST Surgery ENDO [facility], Endoscopy Room [facility] [address] [place] [phone] Favian Escalante MD [address] [place] [address] ESOPHAGOGASTRODUODENOSCOPY (EGD), FLEXIBLE, TRANSORAL, ENDOSCOPIC ULTRASOUND 10/31/2023 12:20 PM EST Office Visit Pulmonary Medicine, [facility] [address] [facility] [place] [address] Ray Rose, DO [address] [facility] [place], [place] [address] 11/13/2023 9:00 AM EST Office Visit Rheumatology [facility] [address] [facility] [place] [address] Maico Carrillo CRNP [address] [facility] [place], [place] [address] 12/01/2023 12:40 PM EDT Office Visit Hepatology, [facility] [address] [facility] [place] [address] Evangelina Dorado, DO [address] [place] [address] 02/11/2024 1:00 PM EDT Office Visit Family Practice [facility] [address] [facility] [place] [address] Sarah Galaviz, DO 132 [facility] [place] [address] Pending Results Name Type Priority Associated Diagnoses Date /Time CBC WITH WBC DIFFERENTIAL Lab STAT Pancytopenia (HCC) Thrombocytopenia (HCC) Anemia, unspecified type GENI positive 08/21/2023 4:51 PM EST COMPREHENSIVE METABOLIC PANEL Lab Routine Pancytopenia (HCC) Thrombocytopenia (HCC) [...] 08/21/2023 4:51 PM EST BILIRUBIN, DIRECT Lab Routine Pancytopenia (HCC) Thrombocytopenia (HCC) Anemia, [...] 10/15/2019 LUNG CANCER SCREENING - USE SMARTSET [address] Completed 07/09/2019 Zoster Vaccines Completed 07/10/2020, 04/14/2020 [...] type documented in this encounter Care Teams Brand Manager Relationship Specialty Start Date End Date Sarah Galaviz DO [address] [place] [address] [place] [address] PCP - General Family Medicine 06/30/19 documented as of this encounter
--- OUTSIDE RECORDS SUMMARY | 2023-12-10 20:27 | External Medical Summary ---
Author Name Unknown Address Unknown Organization K01:[place]ATORY [facility] [place] [facility] [place] [address] [place] [address] Laboratory Report Ordering Provider Test Date Status MINERVA AUGUST 08/13/2023 14:45:35 Final Observation Date Value Abnormality Reference (Units ) Status Iron 08/13/2023 14:45:35 74 33-151 (ug /dL) Final Iron-binding capacity 08/13/2023 14:45:35 410 250-425 (ug/dL) Final Transferrin Sat % 08/13/2023 14:45:35 18 15 -55 (%) Final Performing Location LAB[facility] [place] [address] [place] [address]
--- OUTSIDE RECORDS SUMMARY | 2023-12-10 20:27 | External Medical Summary ---
Author Name Unknown Address Unknown Organization K01:LABORATORY [facility] - [address] [place] [address] Laboratory Report Ordering Provider Test Date Status MINERVA AUGUST 08/13/2023 14:45:35 Final Observation Date Value Abnormality Reference (Units ) Status TSH 08/13/2023 14:45:35 1.51 0.27-4.20 (uIU/mL) Final Performing Location [facility] - [address] [place] [address]
--- OUTSIDE RECORDS SUMMARY | 2023-12-10 20:27 | External Medical Summary ---
Author Name Unknown Address Unknown Organization : Laboratory Report Ordering Provider Test Date Status ALEA MEJIAS 08/26/2023 11:02:38 Final Observation Date Value Abnormality Reference (Units ) Status CD59 Granulocytes [Interpretation] in Blood Qualitative 08/26/2023 11:02:38 SEE BELOW Final No discrete flow cytometric evidence of PNH. comment 08/26/2023 11:02:38 SEE BELOW Final No discrete evidence of loss of the GPI linked markers (listed below)
on red blood cells, monocytes and neutrophils. However, the sample
viability is low (57%). This may affect the detection for a minor PNH
clone. Suggest clinical correlation. REPORT TYPE 08/26/2023 11:02:38 DNR Final Source 08/26/2023 11:02:38 SEE BELOW Final PERIPHERAL BLOOD Clinical information 08/26/2023 11:02:38 NOT PROVIDED Final PATHOLOGIST (NAME) 08/26/2023 11:02:38 SEE BELOW Final Flow Cytometry reviewed by Aleah Marcus M.D. PATHOLOGIST DATE 08/26/2023 11:02:38 DNR Final Viable cells/100 cells in Blood 08/26/2023 11:02:38 57 (%) Final Clinical information 08/26/2023 11:02:38 SEE BELOW Final Erythrocytes/Granulocytes/Mo nocytes Clinical information 08/26/2023 11:02:38 SEE BELOW Final Not Detected Viable cells/100 cells in Specimen 08/26/2023 11:02:38 None Final Clinical information 08/26/2023 11:02:38 Not reported Final Erythrocytes.CD59 deficient/ 100 erythrocytes in Blood 08/26/2023 11:02:38 SEE BELOW Final Normal CD59 level CD59 deficient Granulocytes/ 100 cells in Blood 08/26/2023 11:02:38 SEE BELOW Final No decreased/absent expressi on of GPI-linked marker and FLAER CD59 deficient monocytes/100 cells in Blood 08/26/2023 11:02 :38 SEE BELOW Final No decreased/absent expressi on of GPI-linked marker and FLAER NUMBER OF MARKERS: 08/26/2023 11:02:38 8 Final Clinical information 08/26/2023 11:02:38 SEE BELOW Final Methodology:
Antibodies used were directed against CD45, glycophorin A, CD59, CD24,
CD14, CD15, CD64, as well as FLAER. The above estimated percentages
are based on the scattergram of CD45, forward and/or side scatter or
phenotypic cluster analysis. This high-sensitivity assay can detect as
few as 1 in 10,000 GPI-deficient cells in a mixed population and can
be used for sequential monitoring of disease levels in patients with
paroxysmal nocturnal hemoglobinuria (PNH).
Reference: Guidelines for the diagnosis and monitoring of paroxysmal
nocturnal hemoglobinuria and related disorders by flow cytometry.
Emilie MJ, et al. Cytometry B Clin Cytom 2010;78(4):211-230.
Practical Guidelines for the High-Sensitivity Detection and Monitoring
of Paroxysmal Nocturnal Hemoglobinuria Clones by Flow Cytometry, D.
Christopher Covarrubias, Clay Hines, and Chris Salvador Laboratory
Medicine Program, [facility], [facility], [place],
[facility], [facility],
[facility], [facility], [place], [place].
Cytometry Part B
(Clinical Cytometry) 82B:195?208 (2012)
For more information on this test, go to:
http://education.[place].EnOcean/faq/FAQ42
This test was developed and its analytical performance
characteristics have been determined by [facility], [place], [place]. It has
not been cleared or approved by the U.S. Food and Drug
Administration. This assay has been validated pursuant
to the CLIA regulations and is used for clinical
purposes.

Test Performed at:
[facility]
[address]
[place] [address]
Chevy Marin M.D., Ph.D.,Director of Laboratories Performing Location
--- OUTSIDE RECORDS SUMMARY | 2023-12-10 20:27 | External Medical Summary | Summary of Care ---
Author Name Unknown Organization [facility] Address [address] [place] [address] Phone [phone] Care Team Providers Care Youth Care Worker Name Role Phone Sarah Galaviz DO Primary Care Provider [phone] Reason for Visit * Reason Comments Outpatient Testing Encounter Details Date Type Department Care Team (Late st Contact Info) Description 08/13/2023 2:50 PM EST Laboratory Laboratory, [facility] [place] [address] [facility] 132 [place] [address] Anemia, unspecified type; Hepatic cirrhosis, unspecified hepatic cirrhosis type, unspecified whether ascites present (HCC) Allergies No known active allergiesdocumented as of this encounter (statuses as of 08/13/2023) Medications Medication Sig Dispensed Refills Start Date [...] as of this encounter (statuses as of 08/13/2023) Active Problems Problem Noted Date Diagnosed Date Unspecified cirrhosis of liver 04/14/2020 Thrombocytopenia 10/15/2019 GENI positive 07/07/2019 PHT (pulmonary hypertension) 07/06/2019 Overview: Suspected on Echocardiogram when Hgb low. 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 Secondhand smoke exposure 07/06/2019 Environmental exposure 07/06/2019 Overview: Chickens, Ducks Pancytopenia documented as of this encounter (statuses as of 08/13/2023) Immunizations Name Administration Dates Next Due Pneumococcal [...] Department Care Team (Latest Contact Info) Description 08/18/2023 7:30 AM EST Hospital Encounter ENDO O[facility], Endoscopy Room [facility] [address] [place] [phone] Favian Escalante MD [address] [place] [address] 08/18/2023 7:30 AM EST - 08/18/2023 8:00 AM EST Surgery ENDO [facility], Endoscopy Room [facility] [address] [place] [phone] Favian Escalante MD [address] [place] [address] COLONOSCOPY FLEXIBLE PROXIMAL DIAGNOSTIC 08/21/2023 3:30 PM EST Office Visit Hematology/Oncol hazel [place] [address] [place] [address] Tammy [place] CRNP [address] [place] [address] 08/27/2023 11:00 AM EST Office Visit Cardiology, [facility] [address] [place] [address] Manish Rosales, DO [address] [place] [address] 10/16/2023 8:45 AM EST Hospital Encounter ENDO [facility], Endoscopy Room [facility] [address] [place] [phone] Favian Escalante MD [address] [place] [address] 10/16/2023 8:45 AM EST - 10/16/2023 9:30 AM EST Surgery ENDO [facility], [facility] [place] [address] Favian Escalante MD [address] [place] [address] ESOPHAGOGASTRODUODENOSCOPY (EGD), FLEXIBLE, TRANSORAL, ENDOSCOPIC ULTRASOUND 10/31/2023 12:20 PM EST Office Visit Pulmonary Medicine, [facility] [address] [facility] [place] [address] Ray Rose DO [address] [place] [address] 11/13/2023 9:00 AM EST Office Visit Rheumatology [place] [address] Maya Chatterjee [place] [address] Maico Carrillo CRNP [facility] [facility] [place], [place] [address] 12/01/2023 12:40 PM EDT Office Visit Hepatology, [facility] 132 [facility] [place] [address] Evangelina Dorado Vanesa, DO [address] [place] [address] 02/11/2024 1:00 PM EDT Office Visit Family [facility] [address] [place] [address] Sarah Galaviz, DO [address] [place] [address] Pending Results Name Type Priority Associated Diagnoses Date /Time CBC WITH WBC DIFFERENTIAL AND ANEMIA REFLEX WORKUP Lab Routine Anemia, unspecified type 08/13/2023 2:45 PM EST COMPREHENSIVE METABOLIC PANEL Lab Routine Hepatic cirrhosis, unspecified hepatic cirrhosis type, unspecified whether ascites present (HCC) 08/13/2023 2:45 PM EST ANEMIA CBC Lab Routine Anemia, unspecified type 08/13/2023 2:45 PM EST DIFFERENTIAL, AUTOMATED Lab Routine Anemia, unspecified type 08/13/2023 2:45 PM EST ANEMIA REFLEX CHEMISTRY HOLD Lab Routine Anemia, unspecified type 08/13/2023 2:45 PM EST Scheduled Procedures Name Priority Associated Diagnoses Date/Ti me COLONOSCOPY FLEXIBLE PROXIMA L DIAGNOSTIC Anemia, unspecified type 08/18/2023 7:30 AM EST ESOPHAGOGASTRODUODENOSCOPY ( EGD), FLEXIBLE, TRANSORAL, ENDOSCOPIC [...] Cancer Screening 11/26/2013 Pap Smear 11/26/2013 11/26/2010 Depression Screening 09/24/2020 08/13/2023 Mammogram 11/11/2020 11/11/2019, 01/14/2011 Pneumococcal Vaccine: Pediatrics (0 to 5 Years) and At-Risk Patients (6 to 64 Years) (2 - PCV) 04/21/2021 04/21/2020 Hepatitis B (1 of 3 - Risk 3-dose series) 2022 Lipid Panel 10/19/2024 10/19/2019, 06/17, 11/10/2010, Additional history exists Diabetes Screening 08/05/2026 08/05/2023, 0 04/18/2021, 12/01/2020, Additional history exists DTaP,Tdap,and Td Vaccines (2 - Td or Tdap) 10/15/2029 10/15/2019 LUNG CANCER SCREENING - USE SMARTSET [address] Completed 07/09/2019 Zoster Vaccines Completed 07/10/2020, 04/14/2020 [...] as of this encounter Visit Diagnoses Diagnosis Anemia, unspecified type Hepatic cirrhosis, unspecified hepatic cirrhosis type, unspecified whether ascites present (HCC) Anemia, unspecified type Hepatic cirrhosis, unspecified hepatic cirrhosis type, unspecified whether ascites present (HCC) Anemia, unspecified type documented in this encounter Care Teams Youth Care Worker Relationship Specialty Start Date End Date Sarah Galaviz DO [address] [place] [address] PCP - General Family Medicine 06/30/19 documented as of this encounter
--- OUTSIDE RECORDS SUMMARY | 2023-12-10 20:27 | External Medical Summary ---
Author Name Unknown Address Unknown Organization [id number]:[facility]ORY [facility] - [address] [place] [address] Laboratory Report Ordering Provider Test Date Status ALEA MEJIAS 08/21/2023 16:51:26 Final Observation Date Value Abnormality Reference (Units ) Status DIRECT CLYDE 08/21/2023 16:51:26 Negative Final Performing Location [facility] [place] [address] [place] [address]
--- OUTSIDE RECORDS SUMMARY | 2023-12-10 20:27 | External Medical Summary ---
Author Name Unknown Address Unknown Organization [id number]:LABORATORY [place] - [facility] [place] [address] [place] [address] Laboratory Report Ordering Provider Test Date Status ALEA MEJIAS 08/21/2023 16:51:26 Final Observation Date Value Abnormality Reference (Units ) Status WBC, Total 08/21/2023 16:51:26 7.68 4.00-10.80 (K/uL) Final RBC 08/21/2023 16:51:26 3.40 3.85-5.15 (M/uL) Final Hemoglobin 08/21/2023 16:51:26 9.1 Below low normal 12.0-15.3 (g/dL) Final HCT 08/21/2023 16:51:26 32.4 Below low normal 36.0-45.2 (%) Final MCV 08/21/2023 16:51:26 95.3 81.5-97.5 (fL) Final MCH 08/21/2023 16:51:26 26.8 27.0-34.0 (pg) Final MCHC 08/21/2023 16:51:26 28.1 32.0-36.0 (g/dL) Final RDW 08/21/2023 16:51:26 22.0 11.5-15.5 (%) Final Platelets 08/21/2023 16:51:26 111 Below low normal 140-400 (K/uL) Final MPV 08/21/2023 16:51:26 12.0 6.6-11.1 (fL) Final Nucleated erythrocytes/100 leukocytes [Ratio] in Blood by Automated count 08/21/2023 16:51:26 1 Above high normal <=0 (/100 WBCs) Final Performing Location LABORATORY [place] - [address] [place] [address]
--- OUTSIDE RECORDS SUMMARY | 2023-12-10 20:27 | External Medical Summary | Summary of Care ---
Author Name Unknown Organization [facility] Address [address] [facility] [place] [address] Phone [phone] Care Team Providers Care Soil Conservationist Name Role Phone Sarah Galaviz DO Primary Care Provider [phone] Reason for Visit * Reason Comments Outpatient Testing Encounter Details Date Type Department Care Team (Late st Contact Info) Description 08/26/2023 11:10 AM EST Laboratory [facility], [facility] [address] [facility] 132 [place] [address] Arrived Allergies No known active allergiesdocumented as of this encounter (statuses as of 08/26/2023) Medications Medication Sig Dispensed Refills Start Date [...] Tablet (Revatio)Indications :PHT (pulmonary hypertension) ([facility]) Take 1 Tablet by mouth in [...] as of this encounter (statuses as of 08/26/2023) Active Problems Problem Noted Date Diagnosed Date Unspecified cirrhosis of liver 04/14/2020 Thrombocytopenia 10/15/2019 GENI positive 07/07/2019 PHT (pulmonary hypertension) 07/06/2019 Overview: Suspected on Echocardiogram when Hgb low. 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 [address] [place] [address] Favian Escalante MD [address] [place] [address] 10/16/2023 8:45 AM EST - 10/16/2023 9:30 AM EST Surgery ENDO OSS, Endoscopy Room [facility] 132 [place] [address] Favian Escalante MD [address] [place] [address] ESOPHAGOGASTRODUODENOSCOPY (EGD), FLEXIBLE, TRANSORAL, ENDOSCOPIC ULTRASOUND 10/31/2023 12:20 PM EST Office Visit Pulmonary Medicine, [facility] 132 [facility] [place] [address] Ray Rose, DO [address] [place] [address] 11/13/2023 9:00 AM EST Office Visit Rheumatology [facility] [address] [facility] [place] [address] Maico Carrillo CRNP [address] [place] [address] 12/01/2023 12:40 PM EDT Office Visit Hepatology, [facility] 132 [facility] [place] [address] Evangelina Dorado, DO 132 [facility] [place] [address] 02/11/2024 1:00 PM EDT Office Visit Family Practice [facility] 132 [facility] [place] [address] Sarah Galaviz, DO 132 [facility] [place] [address] Scheduled Procedures Name Priority Associated Diagnoses Date/Ti [...] 10/15/2019 LUNG CANCER SCREENING - USE SMARTSET [address] Completed 07/09/2019 Zoster Vaccines Completed 07/10/2020, 04/14/2020 [...] filedocumented as of this encounter Care Teams Soil Conservationist Relationship Specialty Start Date End Date Sarah Galaviz DO [address] [place] [address] PCP - General Family Medicine 06/30/19 documented as of this encounter
--- OUTSIDE RECORDS SUMMARY | 2023-12-10 20:27 | External Medical Summary ---
Author Name Unknown Address Unknown Organization [id number]:LABORATORY [place] 57-10 - [address] [place] [address] Laboratory Report Ordering Provider Test Date Status MINERVA AUGUST 08/13/2023 14:45:35 Final Observation Date Value Abnormality Reference (Units ) Status BUN 08/13/2023 14:45:35 13 6-20 (mg/dL) Final Creatinine 08/13/2023 14:45:35 1.0 0.5-1.0 (mg/dL) Final Glomerular filtration rate/1.73 sq M.predicted [Volume Rate/Area] in Serum, Plasma or Blood by Creatinine-based formula (CKD-EPI) 08/13/2023 14:45:35 68 >=60 (mL/min) Final eGFR is calculated based on the CKD-EPI 2020 equation SODIUM 08/13/2023 14:45:35 140 135-146 (m mol/L) Final Potassium 08/13/2023 14:45:35 4.1 3.5-5.1 (m mol/L) Final Cl 08/13/2023 14:45:35 108 Above high normal 98 -107 (mmol/L) Final CO2 08/13/2023 14:45:35 19 Below low normal 22- 32 (mmol/L) Final Anion gap 08/13/2023 14:45:35 13 7-15 (mmol /L) Final Glucose 08/13/2023 14:45:35 93 70-120 (mg /dL) Final Albumin 08/13/2023 14:45:35 3.9 3.8-5.0 (g /dL) Final AST (Aspartate aminotransferase) 08/13/2023 14:45:35 56 Above high normal 10-35 (U/L) Final Result may be falsely elevat ed due to hemolysis. Alk Phos 08/13/2023 14:45:35 145 Above high normal 35 -130 (U/L) Final Bilirubin, Total 08/13/2023 14:45:35 10.2 Above high no rmal <=1.2 (mg/dL) Final Calcium 08/13/2023 14:45:35 9.3 8.4-10.2 ( mg/dL) Final Protein 08/13/2023 14:45:35 7.3 6.0-8.3 (g /dL) Final ALT (Alanine aminotransferase) 08/13/2023 14:45:35 32 10-35 (U/L) Yanick mack Performing Location LABORATORY [place] 57-1 0 - [address] [facility] [address]
--- OUTSIDE RECORDS SUMMARY | 2023-12-10 20:27 | External Medical Summary ---
Author Name Unknown Address Unknown Organization [id number]:LABORATORY [place] 57-10 - [address] [place] [address] Laboratory Report Ordering Provider Test Date Status MINERVA AUGUTS 08/13/2023 14:45:35 Final Observation Date Value Abnormality Reference (Units ) Status Nucleated erythrocytes/100 leukocytes [Ratio] in Blood by Automated count 08/13/2023 14:45:35 Final Ovalocytes [Presence] in Blood by Light microscopy 08/13/2023 14:45:35 Moderate Abnormal None Seen Final Performing Location LABORATORY [place] 57-1 0 - [address] [place] [address]
--- OUTSIDE RECORDS SUMMARY | 2023-12-10 20:27 | External Medical Summary ---
Author Name Unknown Address Unknown Organization [id number]:LABORATORY [facility] [place] - [address] [place] [address] Laboratory Report Ordering Provider Test Date Status ALEA MEJIAS 08/21/2023 16:51:26 Final Observation Date Value Abnormality Reference (Units ) Status Retic, % (auto) 08/21/2023 16:51:26 5.77 Above high normal 0.80-1.90 (%) Final Reticulocytes, Absolute 08/21/2023 16:51:26 196.2 Above high normal 31.3-100.1 (K/uL) Final Reticulocyte fraction, immature 08/21/2023 16:51:26 34.6 Above high normal 2.5-20.6 (%) Final Reticulocyte HGB 08/21/2023 16:51:26 24.8 Below low normal 29.7-37.4 (pg) Final Performing Location LABORATORY [facility] [place] - [address] [facility] [address]
--- OUTSIDE RECORDS SUMMARY | 2023-12-10 20:27 | External Medical Summary | Summary of Care ---
Author Name Unknown Organization [facility] Address [address] 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 30 Tablet 10/01/2021 Active Sildenafil Citrate 20 MG Oral [...] the morning. 30 Tablet 5 06/20/2023 Active Hospital, Clinic, or Other Facility Administered Medication Ordered Dose Route Frequency Start Date End Date Status albuterol sulfate (PROVENTIL) (2.5 MG/3ML) 0.083% inhalation solution 2.5 mgIndications:PHT (pulmonary hypertension) (HCC),Tobacco abuse, in remission,Pancytopenia (HCC),Environmental exposure,Secondhand smoke exposure 2.5 mg NEBULIZER Q4H PRN 07/08/2019 Active documented as of this encounter (statuses as of 08/29/2023) Active Problems Problem Noted Date Diagnosed Date Unspecified cirrhosis of liver 04/14/2020 Thrombocytopenia 10/15/2019 GENI positive 07/07/2019 PHT (pulmonary hypertension) 07/06/2019 Overview: Suspected on Echocardiogram when Hgb low. 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 Secondhand smoke exposure 07/06/2019 Environmental exposure 07/06/2019 Overview: Chickens, Ducks Pancytopenia documented as of this encounter (statuses as of 08/29/2023) Immunizations Name Administration Dates Next Due Pneumococcal Polysaccharide PPV23 (Pneumovax) Seasonal Influenza Virus Vac cine, Unspecified Formulation 10/15/2019 Seasonal Influenza, PF, 6 M & above, IM , (FluLaval or Fluzone) 07/10/2020,10/15/2019 TDAP (age 10 and older)(Boostrix) 10/15/2019 Zoster [...] Description 09/27/2023 3:45 PM EST Imaging Radiology [facility] 1st [facility] [address] [place] [address] 10/16/2023 8:45 AM EST Hospital Encounter ENDO OSSC, Endoscopy Room OSS [address] [place] [phone] Favian Escalante MD [address] [place] [address] 10/16/2023 8:45 AM EST - 10/16/2023 9:30 AM EST Surgery ENDO OSSC, Endoscopy Room [facility] 132 [place] [address] Favian Escalante MD [address] [place] [address] ESOPHAGOGASTRODUODENOSCOPY (EGD), FLEXIBLE, TRANSORAL, ENDOSCOPIC ULTRASOUND 10/23/2023 10:40 AM EST Office Visit Hepatology, [facility] [address] [place] [address] Evangelina Dorado DO [address] [place] [address] 10/31/2023 12:20 PM EST Office Visit Pulmonary Medicine, [facility] [place] [address] Ray Rose DO [address] [facility] [place] [address] 11/13/2023 9:00 AM EST Office Visit Rheumatology [place] [id number] [place] [address] Maico Carrillo CRNP [address] [place] [employer] [address] 02/11/2024 1:00 PM EDT Office Visit Family [facility] [address] [place] [address] Sarah Galaviz DO [address] [place] [address] Scheduled Procedures Name Priority Associated Diagnoses Date/Ti [...] 10/15/2019 LUNG CANCER SCREENING - USE SMARTSET 98671 Completed 07/09/2019 Zoster Vaccines Completed 07/10/2020, 04/14/2020 Influenza Vaccine (FLU shot) Completed , 07/10/2020, 10/15/2019, Additional history exists GARDASIL-HPV IMMUNIZATION SERIES Aged Out No longer eligible based on patient's age to complete this topic MENINGOCOCCAL (MENACTRA/MENVEO) Aged Out No longer eligible based on patient's age to complete this topic documented as of this encounter Medical Devices Not on filedocumented as of this encounter Procedures Procedure Name Priority Date/Time Associated Diagnosis Comments OUTSIDE LAB RESULTS 08/05/2023 RADIOLOGY SCANNED RESULT 08/05/2023 documented in this encounter Results * RADIOLOGY SCANNED RESULT (08/05/2023) 08/05/2023 No Physician Data Unknown DIAGNOSTIC RAD IOLOGY SERVICES * OUTSIDE LAB RESULTS (08/05/2023) 08/05/2023 No Physician Data Unknown LABORATORY documented in this encounter Additional Health Concerns Infection Onset Date Last Indicated Resolved Time Respiratory Rule-Out 08/05/2023 08/05/2023 023 6:43 PM EST documented as of this encounter Care Teams 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
--- OUTSIDE RECORDS SUMMARY | 2023-12-10 20:27 | External Medical Summary ---
Author Name Unknown Address Unknown Organization K01:LABORATORY C - [address] [facility] [place] [address] Laboratory Report Ordering Provider Test Date Status RANDELLALEA 08/21/2023 16:51:26 Final Observation Date Value Abnormality Reference (Units ) Status Ovalocytes [Presence] in Blood by Light microscopy 08/21/2023 16:51:26 Moderate Abnormal None Seen Final Performing Location [facility] - [address] [place] [address]
--- OUTSIDE RECORDS SUMMARY | 2023-12-10 20:27 | External Medical Summary ---
Author Name Unknown Address Unknown Organization K01:LAB[facility]ATORY [facility] [place] [address] [place] [address] Laboratory Report Ordering Provider Test Date Status ALEA MEJIAS 08/21/2023 16:51:26 Final Observation Date Value Abnormality Reference (Units ) Status IgG 08/21/2023 16:51:26 1702 Above high normal 70 0-1600 (mg/dL) Final IgA 08/21/2023 16:51:26 505 Above high normal 70 -400 (mg/dL) Final IgM 08/21/2023 16:51:26 462 Above high normal 40 -230 (mg/dL) Final Performing Location LABORATORY C - [address] [place] [address]
--- OUTSIDE RECORDS SUMMARY | 2023-12-10 20:27 | External Medical Summary ---
Author Name Unknown Address Unknown Organization K01:LAB[facility]ATORY [facility] [place] [address] [facility] [address] [facility] [place] [address] Laboratory Report Ordering Provider Test Date Status ALEA MEJIAS 08/21/2023 16:51:26 Final Observation Date Value Abnormality Reference (Units) Status PARAPROTEIN NORMAL/ABNORMAL 08/21/2023 16:51:26 Normal Normal Final Protein 08/21/2023 16:51:26 7.2 6.0-8.3 (g/dL) Final Albumin/Protein.total [Pure mass fraction] in Serum or Plasma by Electrophoresis 08/21/2023 16:51:26 3.24 Below low normal 3.30-4.40 (g/dL) Final Alpha 1 globulin/Protein.tota l [Pure mass fraction] in Serum or Plasma by Electrophoresis 08/21/2023 16:51:26 0.31 Above high normal 0.10-0.30 (g/dL) Final Alpha 2 globulin/Protein.tota l [Pure mass fraction] in Serum or Plasma by Electrophoresis 08/21/2023 16:51:26 0.61 0.60-1.00 (g/dL) Final Beta globulin/Protein.tota l [Pure mass fraction] in Serum or Plasma by Electrophoresis 08/21/2023 16:51:26 0.91 0.80-1.30 (g/dL) Final Gamma globulin/Protein.tota l [Pure mass fraction] in Serum or Plasma by Electrophoresis 08/21/2023 16:51:26 2.13 Above high normal 0.70-1.70 (g/dL) Final Protein Fractions [Interpretation] in Serum or Plasma by Electrophoresis Narrative 08/21/2023 16:51:26 No paraprotein detected. There is a polyclonal increase in the gamma fraction. This finding may be seen in association with chronic inflammation, infection, chronic liver disease or collagen disorders. Final Performing Location LAB[facility]ORY [facility] - [address] [facility] [address] [facility] [place] [address]
--- OUTSIDE RECORDS SUMMARY | 2023-12-10 20:27 | External Medical Summary | Summary of Care ---
Author Name Unknown Organization [facility] Address [address] [place] [address] Phone [phone] Care Team Providers Care Vacation Guide Name Role Phone Sarah Galaviz DO Primary Care Provider [phone] Reason for Visit * Reason Comments Outpatient Testing Encounter Details Date Type Department Care Team (Late st Contact Info) Description 08/13/2023 2:50 PM EST Laboratory Laboratory, [facility] [place] [address] [facility] 132 [place] [address] Anemia, unspecified type; Hepatic cirrhosis, unspecified [...] EST Hospital Encounter ENDO OSSC, Endoscopy Room [facility] 132 [place] [phone] Favian Escalante MD [address] [place] [address] 08/18/2023 7:30 AM EST - 08/18/2023 8:00 AM EST Surgery ENDO OSSC, Endoscopy Room [facility] [address] [place] [address] Favian Escalante MD [address] [place] [address] COLONOSCOPY FLEXIBLE PROXIMAL DIAGNOSTIC 08/21/2023 3:30 PM EST Office Visit Hematology/Oncol hazel [place] [address] [place] [address] Tammy Hammond CRNP [address] [place] [address] 08/27/2023 11:00 AM EST Office Visit Cardiology, [facility] [address] [place] [address] Manish Rosales, DO [address] [place] [address] 10/16/2023 8:45 AM EST Hospital Encounter ENDO OSSC, Endoscopy Room O[facility] [address] [place] [address] Favian Escalante MD [address] [place] [address] 10/16/2023 8:45 AM EST - 10/16/2023 9:30 AM EST Surgery ENDO OSSC, [facility] [address] [facility] [place] [address] Favian Escalante MD [address] [place] [address] ESOPHAGOGASTRODUODENOSCOPY (EGD), FLEXIBLE, TRANSORAL, ENDOSCOPIC ULTRASOUND 10/31/2023 12:20 PM EST Office Visit Pulmonary Medicine, [facility] [address] [facility] [place] [address] Ray Rose DO [address] [place] [address] 11/13/2023 9:00 AM EST Office Visit Rheumatology [place] [id number] Chatterjee [place] [address] Maico Carrillo CRNP [facility] [place], [place] [address] 12/01/2023 12:40 PM EDT Office Visit Hepatology, [facility] 132 [facility] [place] [address] Evangelina Dorado Vanesa, DO [address] [place] [address] 02/11/2024 1:00 PM EDT Office Visit Family [facility] [address] [place] [address] Sarah Galaviz, DO [address] [place] [address] Pending Results Name Type Priority Associated Diagnoses [...] 10/15/2019 LUNG CANCER SCREENING - USE SMARTSET [address]64[address] Completed 07/09/2019 Zoster Vaccines Completed 07/10/2020, 04/14/2020 [...] type documented in this encounter Care Teams Vacation Guide Relationship Specialty Start Date End Date Sarah Galaviz DO [address] [place] [address] PCP - General Family Medicine 06/30/19 documented as of this encounter
--- OUTSIDE RECORDS SUMMARY | 2023-12-10 20:27 | External Medical Summary ---
Author Name Unknown Address Unknown Organization K01:[facility] [place] [address] [facility] [place] [address] Laboratory Report Ordering Provider Test Date Status ALEA MEJIAS 08/21/2023 16:51:26 Final Observation Date Value Abnormality Reference (Units ) Status Iron 08/21/2023 16:51:26 49 33-151 (ug/dL) Final Iron-binding capacity 08/21/2023 16:51:26 396 250-425 (ug/dL) Final Transferrin Sat % 08/21/2023 16:51:26 12 Below low normal 15-55 (%) Final Performing Location LABORATORY C - [address] [place] [address]
--- OUTSIDE RECORDS SUMMARY | 2023-12-10 20:27 | External Medical Summary ---
Author Name Unknown Address Unknown Organization K01:LABORATORY [facility] - [address] [place] [address] Laboratory Report Ordering Provider Test Date Status ALEA MEJIAS 08/21/2023 16:51:26 Final Observation Date Value Abnormality Reference (Units ) Status LDH 08/21/2023 16:51:26 176 <=250 (U/L ) Final Performing Location LAB[facility] - [address] [place] [address]
--- OUTSIDE RECORDS SUMMARY | 2023-12-10 20:27 | External Medical Summary | Summary of Care ---
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 Curb Builder Name Role Phone Sarah Galaviz DO Primary Care Provider [phone] Reason for Visit * Reason Comments Outpatient Testing Encounter Details Date Type Department Care Team (Late st Contact Info) Description 08/21/2023 2:40 PM EST Laboratory Laboratory [facility] [place] [address] [place] [phone] [facility] 200 [facility] [place] [address] Pancytopenia (HCC); Thrombocytopenia (HCC); Anemia, unspecified type; [...] 08/27/2023 11:00 AM EST Office Visit Cardiology, [facility] [address] [place] [address] Manish Rosales DO [address] [place] [address] 10/16/2023 8:45 AM EST Hospital Encounter ENDO OSSC, Endoscopy Room [facility] [address] [place] [phone] Favian Escalante MD [address] [place] [address] 10/16/2023 8:45 AM EST - 10/16/2023 9:30 AM EST Surgery ENDO OSSC, Endoscopy Room [facility] [address] [place] [address] Favian Escalante MD [address] [place] [address] ESOPHAGOGASTRODUODENOSCOPY (EGD), FLEXIBLE, TRANSORAL, ENDOSCOPIC ULTRASOUND 10/31/2023 12:20 PM EST Office Visit Pulmonary Medicine, [facility] 132 [facility] [place] [address] Ray Rose, DO [address] [facility] [place], [place] [address] 11/13/2023 9:00 AM EST Office Visit Rheumatology [facility] [facility] [place] [address] Maico Carrillo CRNP [address] [facility] [place], [place] [address] 12/01/2023 12:40 PM EDT Office Visit Hepatology, [facility] [address] [facility] [place] [address] Evangelina Dorado, DO [address] [place] [address] 02/11/2024 1:00 PM EDT Office Visit Family Practice [facility] [address] [facility] [place] [address] Sarah Galaviz, DO 132 [facility] [place] [address] Pending Results Name Type Priority Associated Diagnoses [...] 10/15/2019 LUNG CANCER SCREENING - USE SMARTSET [address]17[address] Completed 07/09/2019 Zoster Vaccines Completed 07/10/2020, 04/14/2020 [...] type documented in this encounter Care Teams Curb Builder Relationship Specialty Start Date End Date Sarah Galaviz DO [address] [place] [address] [place] [address] PCP - General Family Medicine 06/30/19 documented as of this encounter
--- OUTSIDE RECORDS SUMMARY | 2023-12-10 20:27 | External Medical Summary ---
Author Name Unknown Address Unknown Organization K01:LABORATORY [facility] [place] [facility] [place] [address] [place] [id number] Laboratory Report Ordering Provider Test Date Status ALEA MEJIAS 08/21/2023 16:51:26 Final Observation Date Value Abnormality Reference (Units ) Status [place] light chains, Free, Serum 08/21/2023 16:51:26 37.80 Above high normal 3.30-19.40 (mg/L) Final L[place] light chains, free, Serum 08/21/2023 16:51:26 39.05 Above high normal 5.71-26.30 (mg/L) Final KAPPA LAMBDA [facility] RATIO 08/21/2023 16:51:26 0.97 0.26-1.65 Final Performing Location LABORATORY [facility] - [place] [address]
--- OUTSIDE RECORDS SUMMARY | 2023-12-10 20:27 | External Medical Summary ---
Author Name Unknown Address Unknown Organization [id number] [address] [place] [address] Laboratory Report Ordering Provider Test Date Status MINERVA AUGUST 08/13/2023 14:45:35 Final Observation Date Value Abnormality Reference (Units ) Status SYNC LEUKOCYTES IN BLOOD BY AUTOMATED COUNT 08/13/2023 14:45:35 5.55 4.00-10.80 (K/uL) Final Segs 08/13/2023 14:45:35 54.6 40.0-75.0 (%) Final Lymphs % 08/13/2023 14:45:35 33.9 18.0-42.0 (%) Final Monos 08/13/2023 14:45:35 8.8 1.0-11.0 (%) Final Eosinophils 08/13/2023 14:45:35 2.3 0.0-6.0 (%) Final Basos 08/13/2023 14:45:35 0.4 0.0-2.0 (%) Final Absolute Segs 08/13/2023 14:45:35 3.03 1.80-7.70 (K/uL) Final Lymphs, absolute 08/13/2023 14:45:35 1.88 1.00-4.80 (K/ul) Final Monos, Abs 08/13/2023 14:45:35 0.49 0.00-1.10 (K/uL) Final Eos, Abs 08/13/2023 14:45:35 0.13 0.00-0.70 (K/uL) Final Basos, Abs 08/13/2023 14:45:35 0.02 0.00-0.20 (K/uL) Final Performing Location LABORATORY [facility] [place] [address] [place] [address]
--- OUTSIDE RECORDS SUMMARY | 2023-12-10 20:27 | External Medical Summary ---
Author Name Unknown Address Unknown Organization [id number]:[facility] [place] [address] [place] [address] Laboratory Report Ordering Provider Test Date Status RANDELLALEA 08/21/2023 16:51:26 Final Observation Date Value Abnormality Reference (Units ) Status Schistocytes 08/21/2023 16:51:26 None Seen None Se en Final Performing Location LABORATORY C - [address] [place] [address]
--- OUTSIDE RECORDS SUMMARY | 2023-12-10 20:28 | External Medical Summary | Summary of Care ---
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 Name Role Phone Sarah Galaviz DO Primary Care Provider [phone] Reason for Referral * Evaluate & Treat - Unlimited Visits (Within 10 days (routine)) - Pending Review Specialty Diagnoses / Procedures Referred By Mechelle t Referred To Contact Rheumatology Diagnoses Thrombocytopenia (HCC) Pancytopenia (HCC) Positive GENI (antinuclear antibody) Deepa Chau DO [address] [place] [address] Referral ID Status Reason Start Date Expiration Date Visits Requested Visits Authorized [id number] Pending Review Specialty Services Required [phone] Question Answer Referral Priority Within 10 days (routine) Where should this appointment be scheduled? [facility] Reason for referral: Other Conditions * Evaluate & Treat - Unlimited Visits (Within 10 days (routine)) - Pending Review Specialty Diagnoses / Procedures Referred By Contac t Referred To Contact Hematology/Oncology / Hematology Oncology Diagnoses Thrombocytopenia (HCC) Pancytopenia (HCC) Deepa Chau DO [address] [place] [address] Referral ID Status Reason Start Date Expiration Date Visits Requested Visits Authorized [id number] Pending Review Specialty Services Required [phone] Question Answer Referral Priority Within 10 days (routine) Where should this appointment be scheduled? [facility] Reason for Referral Other - Please Comment * Evaluate & Treat - Unlimited Visits (Within 10 days (routine)) - Pending Review Specialty Diagnoses / Procedures Referred By Contac t Referred To Contact Gastroenterology Diagnoses Hepatic cirrhosis, unspecified hepatic cirrhosis type, unspecified whether ascites present (HCC) Serum total bilirubin elevated Jaundice Thrombocytopenia (HCC) Transaminitis Deepa Chau DO [address] [place] [address] Referral ID Status Reason Start Date Expiration Date Visits Requested Visits Authorized [id number] Pending Review Specialty Services Required [phone] Question Answer Referral Priority Within 10 days (routine) Where should this appointment be scheduled? [facility] For what condition is the patient being referred? Liver conditions * Evaluate & Treat - Unlimited Visits (Within 10 days (routine)) - Pending Review Specialty Diagnoses / Procedures Referred By Contac t Referred To Contact Pulmonary Diseases / Pulmonary Diagnoses PHT (pulmonary hypertension) (HCC) PAH (pulmonary artery hypertension) (HCC) Thrombocytopenia (HCC) Pancytopenia (HCC) Deepa Chau DO [address] [place] [address] Referral ID Status Reason Start Date Expiration Date Visits Requested Visits Authorized [id number] Pending Review Specialty Services Required [phone] Question Answer Referral Priority Within 10 days (routine) Where should this appointment be scheduled? [facility] Primary Reason for Referral? Other * Evaluate & Treat - Unlimited Visits (Within 10 days (routine)) - Pending Review Specialty Diagnoses / Procedures Referred By Contact Referred To Contact Cardiovascular Medicine / Cardiology Diagnoses PHT (pulmonary hypertension) (HCC) PAH (pulmonary artery hypertension) (HCC) Thrombocytopenia (HCC) Pancytopenia (HCC) Deepa Chau DO [address] [place] [address] Referral ID Status Reason Start Date Expiration Date Visits Requested Visits Authorized [id number] Pending Review Specialty Services Required [phone] Question Answer Referral Priority Within 10 days (routine) Where should this appointment be scheduled? [facility] To which of the following clinics are you referring your patient? General Cardiology Clinic Reason for Visit * Reason Comments Acute Pt here with prolong ed cough has had for weeks and not going away, and has some back pain and has had sore throat for 3 weeks as well, more fatigue then in past. Encounter Details Date Type Department Care Team (Late st Contact Info) Description 08/05/2023 11:20 AM EST Office Visit [facility] [address] [place] [address] Deepa Chau DO [address] [place] [address] Acute pharyngitis, unspecified etiology*; URI with cough and congestion; Hepatic cirrhosis, unspecified hepatic cirrhosis type, unspecified whether ascites present (HCC); Serum total bilirubin elevated; Jaundice; PHT (pulmonary hypertension) (HCC); PAH (pulmonary artery hypertension) (HCC); Thrombocytopenia (HCC); Pancytopenia (HCC); Transaminitis; Positive GENI (antinuclear antibody) Allergies No known active allergiesdocumented as of this encounter (statuses as of 08/05/2023) Medications Medication Sig Dispensed Refills Start Date End Date Status Acetaminophen ER (TYLENOL 8 HOUR ARTHRITIS PAIN) 650 MG TBCR Take 1 Tablet by mouth every 8 hours as needed for Fever. 0 Active Fluticasone Propionate 50 MCG/ACT Nasal Suspension Administer 2 Sprays into each nostril daily. 16 g 3 06/23/2020 Active Additional Information Patient taking differently:2 [place] Each NostrilDAILY PRN, Reported on 12/01/2020 GENERIC EXTERNAL MEDICATION Balance of nature- fruit [...] as of this encounter (statuses as of 08/05/2023) Active Problems Problem Noted Date Diagnosed Date Unspecified cirrhosis of liver 04/14/2020 Thrombocytopenia 10/15/2019 GENI positive 07/07/2019 PHT (pulmonary hypertension) 07/06/2019 Overview: Suspected on Echocardiogram when Hgb low. 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 Secondhand smoke exposure 07/06/2019 Environmental exposure 07/06/2019 Overview: Chickens, Ducks Pancytopenia documented as of this encounter (statuses as of 08/05/2023) Immunizations Name Administration Dates Next Due Pneumococcal Polysaccharide PPV23 (Pneumovax) SEASONAL INFLUENZA, PF, 6 M & Above, IM , (FLULAVAL or FLUZONE) 07/10/2020,10/15/2019 Seasonal Influenza Virus Vac cine, Unspecified Formulation [...] Sign Reading Time Taken Comments Blood Pressure 102/66 08/05/2023 11:29 AM EST Pulse 69 08/05/2023 11:29 AM EST Temperature 36.9 C (98.4 F) 08/05/2023 11:[address] Respiratory Rate 16 08/05/2023 11:29 AM EST Oxygen Saturation 99% 08/05/2023 11:29 AM EST Inhaled Oxygen Concentration - - Weight 83 kg (183 lb) 08/05/2023 11:29 AM EST Height - - Body Mass Index 28.66 06/21/2020 11:19 AM EDT documented in this encounter Progress Notes * Deepa Chau, - 08/05/2023 11:55 AM EST Subjective: Marianne Chand is a 62 year old female. Chief Complaint Patient presents with Acute Pt here with prolonged cough has had for weeks and not going away, and has some back pain and has had sore throat for 3 weeks as well, more fatigue then in past. There are no exam notes on file for this visit. HPI: This is a 62 year old female with PMHx as below presents with acute illness as noted above VSS Pt with significant medical issues - overdue to see all specialists and PCP Will get referrals started Health Maintenance Due Topic Date Due COVID-19 Vaccine (1) Never done HIV Screening Never done Hepatitis C Screening Never done Colorectal Cancer Screening Never done Cervical Cancer Screening 11/26/2013 Depression Screening 09/24/2020 Mammogram 11/11/2020 Pneumococcal Vaccine: Pediatrics (0 to 5 Years) and At-Risk Patients (6 to 64 Years) (2 - PCV) 04/21/2021 Hepatitis B (1 of 3 - Risk 3-dose series) Never done Influenza Vaccine (FLU shot) (1) 05/16/2023 Patient Active Problem List Diagnosis Code Pancytopenia [...] MOUTH in the morning. 30 Tablet 5 Acetaminophen ER (TYLENOL 8 HOUR ARTHRITIS PAIN) 650 MG TBCR Take 1 Tablet by mouth every 8 hours as needed for Fever. Fluticasone Propionate 50 MCG/ACT Nasal Suspension Administer 2 Sprays into each nostril daily. (Patient taking differently: Administer 2 Sprays into each nostril daily as needed.) 16 g 3 Current Facility-Administered Medications Medication Dose Route Frequency Provider Last Rate Last Admin albuterol sulfate (PROVENTIL) (2.5 MG/3ML) 0.083% inhalation solution 2.5 mg 2.5 mg Nebulizer Q4H PRN Ray Rose DO 2.5 mg at 07/09/19 9604 Past Medical History: Diagnosis Date Allergic rhinitis [...] by Eyal Tom MD at [facility] [place] Review of patient's allergies indicates: No Known Allergies Family History Problem Relation Age of Onset Diabetes Father mild stroke. Hypertension Father Heart Disorder Father bypass Stroke Father Diabetes Brother Heart Disorder Mother bypass Alzheimer's disease Mother Asthma Mother Other (Other) Other No h/o cancer, neurological problems Other (Healthy) Son Other (Healthy) Daughter Endocrine Disorder Sister thyroid Family Status Relation Status Fa Bro (Not Specified) Mo Other (Not Specified) Son (Not Specified) Marisel (Not Specified) Sis (Not Specified) Social History Socioeconomic History Marital status: Spouse name: Not on file Number of children: Not on file Years of education: Not on file Highest education level: Not on file Occupational History Not on file Tobacco Use Smoking status: Former Packs/day: 1.00 Years: 20.00 Additional pack years: 0.00 Total pack years: 20.00 Types: Cigarettes Start date: 1980 Quit date: 05/27/2019 Years since quittin.1 Smokeless tobacco: Never Tobacco comments: stopped smoking [...] Housing Stability: Not on file Review of Systems: As per HPI all other ROS negative. Wt Readings from Last 3 Encounters: 08/05/23 83 kg (183 lb) 04/20/21 80.6 kg (177 lb 12.8 oz) 12/01/20 89.4 kg (197 lb) Results for orders placed or performed in visit on 08/05/23 STREP A SCREEN, POINT OF CARE (ENTER/EDIT) Result Value Ref Range Strep A Result Negative Negative Procedural Control Valid? Yes Lot Number [id number] Expiration Date 05-08-24 OBJECTIVE: Physical Exam: BP 102/66 | Pulse 69 | Temp 36.9 C (98.4 F) (Tympanic) | Resp 16 | Wt 83 kg (183 lb) | SpO2 99%| BMI 28.66 kg/m | BSA 1.98 m General: alert, healthy, and no distress Eye Exam: pos yellow sclera Heart: regular rate & rhythm Lungs: lungs clear to auscultation Acute pharyngitis, unspecified etiology (Primary) - STREP A SCREEN, POINT OF CARE (ENTER/EDIT) - RESPIRATORY PATHOGEN PANEL, PCR; Future; Expected date: 08/05/2023 - GROUP A STREP PCR URI with cough and congestion - RESPIRATORY PATHOGEN PANEL, PCR; Future; Expected date: 08/05/2023 - XR CHEST 2 VIEWS - BNP, NT-PRO; Future; Expected date: 08/05/2023 - GROUP A STREP PCR Hepatic cirrhosis, unspecified hepatic cirrhosis type, unspecified whether ascites present (HCC) - CBC WITH WBC DIFFERENTIAL; Future; Expected date: 08/05/2023 - COMPREHENSIVE METABOLIC PANEL; Future; Expected date: 08/05/2023 - HEPATOLOGY REFERRAL OP Serum total bilirubin elevated - CBC WITH WBC DIFFERENTIAL; Future; Expected date: 08/05/2023 - COMPREHENSIVE METABOLIC PANEL; Future; Expected date: 08/05/2023 - HEPATOLOGY REFERRAL OP Jaundice - CBC WITH WBC DIFFERENTIAL; Future; Expected date: 08/05/2023 - COMPREHENSIVE METABOLIC PANEL; Future; Expected date: 08/05/2023 - HEPATOLOGY REFERRAL OP PHT (pulmonary hypertension) (HCC) - CARDIOLOGY REFERRAL OP - PULMONARY REFERRAL OP PAH (pulmonary artery hypertension) (HCC) - CARDIOLOGY REFERRAL OP - PULMONARY REFERRAL OP Thrombocytopenia (HCC) - CARDIOLOGY REFERRAL OP - PULMONARY REFERRAL OP - HEPATOLOGY REFERRAL OP - HEMATOLOGY/ONCOLOGY REFERRAL OP - RHEUMATOLOGY REFERRAL OP Pancytopenia (HCC) - CARDIOLOGY REFERRAL OP - PULMONARY REFERRAL OP - HEMATOLOGY/ONCOLOGY REFERRAL OP - RHEUMATOLOGY REFERRAL OP Transaminitis - HEPATOLOGY REFERRAL OP Positive GENI (antinuclear antibody) - RHEUMATOLOGY REFERRAL OP Follow-up: Return if symptoms worsen or fail to improve. | Check-out note: BOOGIE appt with PCP - needs to re-est Overdue to see specialists Deepa Chau DO documented in this encounter Plan of Treatment Upcoming Encounters Date Type Department Care Team (Late st Contact Info) Description 08/27/2023 11:00 AM EST Office Visit Cardiology, [facility] [address] [facility] [place], [place] [address] Manish Rosales, DO [address] [facility] [place] [address] 10/31/2023 12:20 PM EST Office Visit Pulmonary Medicine, [facility] [address] [facility] [place], [place] [address] Ray Rose, DO [address] [place] [address] 11/13/2023 9:00 AM EST Office Visit Rheumatology [facility] [address] [facility] [place] [address] Maico Carrillo CRNP [address] [facility] [place], [place] [address] 12/01/2023 12:40 PM EDT Office Visit Hepatology, [facility] [address] [facility] [place] [address] Evangelina Dorado, DO [address] [facility] [place] [address] 02/11/2024 1:00 PM EDT Office Visit Family Practice [facility] [address] [facility] [place] [address] Sarah Galaviz, DO [address] [facility] [place] [address] Pending Results Name Type Priority Associated Diagnoses Date /Time RESPIRATORY PATHOGEN PANEL, PCR Lab Routine Acute pharyngitis, unspecified etiology URI with cough and congestion 08/05/2023 12:00 PM EST XR CHEST 2 VIEWS Medical Imaging Routine URI with cough and congestion 08/05/2023 12:07 PM EST GROUP A STREP PCR Lab Routine Acute pharyngitis, unspecified etiology URI with cough and congestion 08/05/2023 12:00 PM EST Scheduled Orders Name Type Priority Associated Diagnoses Orde r Schedule RESPIRATORY PATHOGEN PANEL, PCR Lab Routine Acute pharyngitis, unspecified etiology URI with cough and congestion Expected: 08/05/2023 (Approximate), Expires: 08/04/2024 CBC WITH WBC DIFFERENTIAL Lab Routine Hepatic cirrhosis, unspecified hepatic cirrhosis type, unspecified whether ascites present (HCC) Serum total bilirubin elevated Jaundice Expected: 08/05/2023 (Approximate), Expires: 08/05/2024 COMPREHENSIVE METABOLIC PANEL Lab Routine Hepatic cirrhosis, unspecified hepatic cirrhosis type, unspecified whether ascites present (HCC) Serum total bilirubin elevated Jaundice Expected: 08/05/2023 (Approximate), Expires: 08/04/2024 BNP, NT-PRO Lab Routine URI with cough and congestion Expected: 08/05/2023 (Approximate), Expires: 08/04/2024 Scheduled Referrals Name Type Priority Associated Diagnoses Orde r Schedule CARDIOLOGY REFERRAL OP Referral Within 10 days (routine) PHT (pulmonary hypertension) (HCC) PAH (pulmonary artery hypertension) (HCC) Thrombocytopenia (HCC) Pancytopenia (HCC) Ordered: 08/05/2023 PULMONARY REFERRAL OP Referral Within 10 days (routine) PHT (pulmonary hypertension) (HCC) PAH (pulmonary artery hypertension) (HCC) Thrombocytopenia (HCC) Pancytopenia (HCC) Ordered: 08/05/2023 HEPATOLOGY REFERRAL OP Referral Within 10 days (routine) Hepatic cirrhosis, unspecified hepatic cirrhosis type, unspecified whether ascites present (HCC) Serum total bilirubin elevated Jaundice Thrombocytopenia (HCC) Transaminitis Ordered: 08/05/2023 HEMATOLOGY/ONCOLOGY REFERRAL OP Referral Within 10 days (routine) Thrombocytopenia (HCC) Pancytopenia (HCC) Ordered: 08/05/2023 RHEUMATOLOGY REFERRAL OP Referral Within 10 days [...] Pap Smear 11/26/2013 11/26/2010 Depression Screening 09/24/2020 09/24/2019 Mammogram 11/11/2020 11/11/2019, 01/14/2011 Pneumococcal Vaccine: Pediatrics (0 to 5 Years) and At-Risk Patients (6 to 64 Years) (2 - PCV) 04/21/2021 04/21/2020 Hepatitis B (1 of 3 - Risk 3-dose series) 2022 Influenza Vaccine (FLU shot) (#1) 2023 07/10/2020, 10/15/2019, 10/15/2019 Lipid Panel 10/19/2024 10/19/2019, 06/17, 11/10/2010, Additional history exists DTaP,Tdap,and Td Vaccines (2 - Td or Tdap) 10/15/2029 10/15/2019 LUNG CANCER SCREENING - USE SMARTSET [id number] Completed 07/09/2019 Zoster Vaccines Completed 07/10/2020, 04/14/2020 GARDASIL-HPV IMMUNIZATION SERIES Aged Out No longer eligible based on patient's age to complete this topic MENINGOCOCCAL (MENACTRA/MENVEO) Aged Out No longer eligible based on patient's age to complete this topic documented as of this encounter Medical Devices Not on filedocumented as of this encounter Procedures Procedure Name Priority Date/Time Associated Diagnosis Comments STREP A SCREEN, POINT OF CARE (ENTER/EDIT) Routine 08/05/2023 Acute pharyngitis, unspecified etiology documented in this encounter Results * STREP A SCREEN, POINT OF CARE (ENTER/EDIT) (08/05/2023) Strep A Result Negative Negative Procedural Control Valid? Yes Lot Number [id number] Expiration Date 05-08-24 Swab Throat swab / Unknown 08/05/2023 Deepa Chau DO LAB POINT OF CARE T EST ENTER/EDIT ORDERABLES documented in this encounter Visit Diagnoses Diagnosis Acute pharyngitis, unspecified etiology- Primary URI with cough and congestion Hepatic cirrhosis, unspecified hepatic cirrhosis type, unspecified whether ascites present (HCC) Serum total bilirubin elevated Jaundice, unspecified, not of Jaundice Jaundice, unspecified, not of PHT (pulmonary hypertension) (HCC) Other chronic pulmonary heart diseases PAH (pulmonary artery hypertension) (HCC) Other chronic pulmonary heart diseases Thrombocytopenia (HCC) Thrombocytopenia, unspecified Pancytopenia (HCC) Other pancytopenia Transaminitis Nonspecific elevation of levels of transaminase or lactic acid dehydrogenase (LDH) Positive GENI (antinuclear antibody) Other and unspecified nonspecific immunological findings documented in this encounter Additional Health Concerns Infection Onset Date Last Indicated Resolved Time Respiratory Rule-Out 08/05/2023 08/05/2023 documented as of this encounter Care Teams Cnc Cutting Operator Relationship Specialty Start Date End Date Sarah Galaviz DO [address] [place] [address] PCP - General Family Medicine 06/30/19 documented as of this encounter"
--- OUTSIDE RECORDS SUMMARY | 2023-12-10 20:28 | External Medical Summary | Summary of Care ---
Author Name Unknown Organization [facility] Address [address] [facility] [place] [address] Phone [phone] Care Team Providers Care Distributing Clerk Name Role Phone Sarah Galaviz DO Primary Care Provider [phone] Reason for Referral * Precert (Within 10 days (routine)) - Pending Review Specialty Diagnoses / Procedures Referred By Contac t Referred To Contact Radiology Diagnoses Thrombocytopenia (HCC) Hepatic cirrhosis, unspecified hepatic cirrhosis type, unspecified whether ascites present (HCC) Hyperbilirubinemia Transaminitis Procedures MRI ABDOMEN WO CONTRAST Latasha French DO [address] [employer] [place] [address] Referral ID Status Reason Start Date Expiration Date V isits Requested Visits Authorized [id number] Pending Review 08/08/2023 999 999 Reason for Visit * Reason Onset Date Comments Test Results 08/05/2023 Encounter Details Date Type Department Care Team (Late st Contact Info) Description 08/05/2023 Telephone Family Practice [facility] [address] [place] [address] Latasha French DO [address] [employer] [place] [address] Test Results Allergies No known active allergiesdocumented as of this encounter (statuses as of 08/08/2023) Medications Medication Sig Dispensed Refills Start Date End Date Status Acetaminophen ER (TYLENOL 8 HOUR ARTHRITIS PAIN) 650 MG TBCR Take 1 Tablet by mouth every 8 hours as needed for Fever. 0 Active Fluticasone Propionate 50 MCG/ACT Nasal Suspension Administer 2 Sprays into each nostril daily. 16 g 3 06/23/2020 Active Additional Information Patient taking differently:2 [place] Each NostrilDAILY PRN, Reported on 12/01/2020 GENERIC [...] as of this encounter (statuses as of 08/08/2023) Active Problems Problem Noted Date Diagnosed Date Unspecified cirrhosis of liver 04/14/2020 Thrombocytopenia 10/15/2019 GENI positive 07/07/2019 PHT (pulmonary hypertension) 07/06/2019 Overview: Suspected on Echocardiogram when Hgb low. 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 Secondhand smoke exposure 07/06/2019 Environmental exposure 07/06/2019 Overview: Chickens, Ducks Pancytopenia documented as of this encounter (statuses as of 08/08/2023) Immunizations Name Administration Dates Next Due Pneumococcal [...] encounter Miscellaneous Notes * Addendum Note - Latasha French DO - 08/08/2023 1:44 PM ESTAddended by: LATASHA FRENCH on: 08/08/2023 01:44 PM Modules accepted: Orders * Telephone Encounter - Latasha French DO - 08/08/2023 1:42 PM EST Please see if can get GI appt moved up sooner as well MRCP ordered * Telephone Encounter - Apolinar Reeves OSA - 08/08/2023 11:00 AM EST Called pt, scheduled ER f/u OV * Telephone Encounter - Latasha French DO - 08/08/2023 9:16 AM EST Please set up hospital follow up appt for next week any provider * Telephone Encounter - Latasha French DO - 08/06/2023 12:28 PM EST Noted * Telephone Encounter - Saloni Rosales MED ASSIST - 08/06/2023 12:21 PM EST Patient went to the ER last night, had CT scan, bloodwork done as well -- everything came back okayon the CT scan. Was given something through the IV (was unsure of what it was), was there until a little after 1 am-- was discharged home. She said the ER staff suggested MRI, will get report from [facility] * Telephone Encounter - Latasha French DO - 08/06/2023 12:16 PM EST Please call to see in went to ER/admitted? * Telephone Encounter - Estephania Chin LPN - 08/05/2023 4:13 PM EST Called pt and still not able to get to ER due to watching grandson and no car, someone will be homearound 6:30 tonight and I stressed she must go tonight to ER and not wait. Will fax over OV notes and lab results to ER with note of not sure how soon pt will arrive due to travel issues. * Telephone Encounter - Estephania Chin LPN - 08/05/2023 2:53 PM EST Pt called at 2:20 and told needs to go to ER for further work up per Dr French and GI highly recommends this. Pt said not able to go right now and stressed she needs to go today and not wait. * Telephone Encounter - Latasha French DO - 08/05/2023 2:49 PM EST Please call pt later today 08/05 to ensure she went to [facility]. If she did not yet go, please put in nurse reminder for tomorrow 08/06 to call and follow up on this Thank you * Telephone Encounter - Latasha French DO - 08/05/2023 2:37 PM EST Pt with significant elevation in bili based on labs, spoke with GI (they had seen her last in 2019)recommending to go to ER for further workup. Advising to get urgent CT/MRCP Thank you documented in this encounter Plan of Treatment Upcoming Encounters Date Type Department Care Team (Late st Contact Info) Description 08/13/2023 1:40 PM EST Office Visit Family Practice [facility] [address] [place] [address] Sarah Galaviz DO [address] [place] [address] 08/21/2023 3:30 PM EST Office Visit Hematology/Oncology [facility] [place] [address] [place] [address] Tammy Hammond CRNP [address] [place] [address] 08/27/2023 11:00 AM EST Office Visit Cardiology, [facility] [address] [facility] [place] [address] Manish Rosales, DO 132 [facility] [place] [address] 10/31/2023 12:20 PM EST Office Visit Pulmonary Medicine, [facility] [address] [facility] [place] [address] Ray Rose, DO [address] [place] [facility] [place] [address] 11/13/2023 9:00 AM EST Office Visit Rheumatology [place] [address] [facility] [place], [place] [address] Maico Carrilol CRNP [facility] [place], [place] [address] 12/01/2023 12:40 PM EDT Office Visit Hepatology, [facility] [address] [facility] [place] [address] Evangelina Dorado, DO 132 [facility] [place] [address] 02/11/2024 1:00 PM EDT Office Visit Family Practice [facility] [address] [facility] [place] [address] Sarah Galaviz, DO [address] [facility] [place] [address] Scheduled Orders Name Type Priority Associated Diagnoses Orde r Schedule MRI ABDOMEN WO CONTRAST Medical Imaging Routine Thrombocytopenia (HCC) Hepatic cirrhosis, unspecified hepatic cirrhosis type, unspecified whether ascites present (HCC) Hyperbilirubinemia Transaminitis Expected: 08/08/2023, Expires: 09/07/2024 Health Maintenance Due Date Last Done Comments [...] 10/15/2019 LUNG CANCER SCREENING - USE SMARTSET [id number] Completed 07/09/2019 Zoster Vaccines Completed 07/10/2020, 04/14/2020 GARDASIL-HPV IMMUNIZATION SERIES Aged Out No longer eligible based on patient's age to complete this topic MENINGOCOCCAL (MENACTRA/MENVEO) Aged Out No longer eligible based on patient's age to complete this topic documented as of this encounter Medical Devices Not on filedocumented as of this encounter Visit Diagnoses Diagnosis Thrombocytopenia (HCC)- Primary Thrombocytopenia, unspecified Hepatic cirrhosis, unspecified hepatic cirrhosis type, unspecified whether ascites present (HCC) Hyperbilirubinemia Jaundice, unspecified, not of Transaminitis Nonspecific elevation of levels of transaminase or lactic acid dehydrogenase (LDH) documented in this encounter Additional Health Concerns Infection Onset Date Last Indicated Resolved Time Respiratory Rule-Out 08/05/2023 08/05/2023 023 6:43 PM EST documented as of this encounter Care Teams Distributing Clerk Relationship Specialty Start Date End Date Sarah Galaviz DO [address] [place] [address] PCP - General Family Medicine 06/30/19 documented as of this encounter
--- OUTSIDE RECORDS SUMMARY | 2023-12-10 20:28 | External Medical Summary | Summary of Care ---
Author Name Unknown Organization [facility] Address [address] [facility] [place] [address] Phone [phone] Care Team Providers Care Insurance Marketing Specialist Name Role Phone Sarah Galaviz DO Primary Care Provider [phone] Reason for Referral * Evaluate & Treat - Unlimited Visits (Within 10 days (routine)) - Pending Review Specialty Diagnoses / Procedures Referred By Mechelle t Referred To Contact Rheumatology Diagnoses Thrombocytopenia (HCC) Pancytopenia (HCC) Positive GENI (antinuclear antibody) Deepa Chau DO [address] [place] [address] Referral ID Status Reason Start Date Expiration Date Visits Requested Visits Authorized [id number] Pending Review Specialty Services Required 3 999 [...] (HCC) Deepa Chau DO [address] [place] [id number] Referral ID Status Reason Start Date Expiration Date Visits Requested Visits Authorized [id number] Pending Review Specialty Services Required 3 999 [...] Transaminitis Deepa Chau DO [address] [place] [address] Referral ID Status Reason Start Date Expiration Date Visits Requested Visits Authorized [id number] Pending Review Specialty Services Required 3 999 [...] (HCC) Deepa Chau DO [address] [place] [address] Referral ID Status Reason Start Date Expiration Date Visits Requested Visits Authorized [id number] Pending Review Specialty Services Required 3 999 [...] (HCC) Deepa Chau DO [address] [place] [address] Referral ID Status Reason Start Date Expiration Date Visits Requested Visits Authorized [id number] Pending Review Specialty Services Required 3 999 [...] Description 08/05/2023 11:20 AM EST Office Visit [facility] [address] [place] [address] Deepa Chau DO [address] [place] [address] Acute pharyngitis, unspecified etiology*; URI with cough [...] 06/23/2020 Active Additional Information Patient taking differently:2 [place] Each NostrilDAILY PRN, Reported on 12/01/2020 GENERIC [...] Ray Rose DO 2.5 mg at 07/09/19 1726 Past Medical History: Diagnosis Date Allergic rhinitis [...] by Eyal Tom MD at [facility] Review of patient's allergies indicates: No Known [...] documented in this encounter Plan of Treatment Pending Results Name Type Priority Associated Diagnoses [...] elevated Jaundice Expected: 08/05/2023 (Approximate), Expires: 08/04/2024 XR CHEST 2 VIEWS Medical Imaging Routine URI with cough and congestion Ordered: 08/05/2023 BNP, NT-PRO Lab Routine URI with cough and congestion Expected: 08/05/2023 (Approximate), Expires: 08/04/2024 GROUP A STREP PCR Lab Routine Acute pharyngitis, unspecified etiology URI with cough and congestion Ordered: 08/05/2023 Scheduled Referrals Name Type Priority Associated Diagnoses [...] 10/15/2019 LUNG CANCER SCREENING - USE SMARTSET [id number] Completed 07/09/2019 Zoster Vaccines Completed 07/10/2020, 04/14/2020 [...] documented as of this encounter Care Teams Insurance Marketing Specialist Relationship Specialty Start Date End Date Sarah Galaviz DO [address] [facility] [place] [address] PCP - General Family Medicine 06/30/19 documented as of this encounter"
--- OUTSIDE RECORDS SUMMARY | 2023-12-10 20:28 | External Medical Summary | Summary of Care ---
Author Name Unknown Organization [facility] Address [address] [facility] [place] [address] Phone [phone] Care Team Providers Care Donor Recruitment Manager Name Role Phone Sarah Galaviz DO Primary Care Provider [phone] Reason for Referral * Precert (Within 10 days (routine)) - Pending Review Specialty Diagnoses / Procedures Referred By Contac t Referred To Contact Radiology Diagnoses Thrombocytopenia (HCC) Hepatic cirrhosis, unspecified hepatic cirrhosis type, unspecified whether ascites present (HCC) Hyperbilirubinemia Transaminitis Procedures MRI ABDOMEN WO CONTRAST Latasha French DO [address] [employer] [place] [address] Referral ID Status Reason Start Date Expiration Date V isits Requested Visits Authorized [id number] Pending Review 08/08/2023 999 999 Reason for Visit * Reason Onset Date Comments Test Results 08/05/2023 Encounter Details Date Type Department Care Team (Late st Contact Info) Description 08/05/2023 Telephone Family Practice [facility] [address] [place] [address] Latasha French DO [address] [employer] [place] [address] Test Results Allergies No known active allergiesdocumented as of this encounter (statuses as of 08/11/2023) Medications Medication Sig Dispensed Refills Start Date End Date Status Acetaminophen ER (TYLENOL 8 HOUR ARTHRITIS PAIN) 650 MG TBCR Take 1 Tablet by mouth every 8 hours as needed for Fever. 0 Active Fluticasone Propionate 50 MCG/ACT Nasal Suspension Administer 2 Sprays into each nostril daily. 16 g 3 06/23/2020 Active Additional Information Patient taking differently:2 [place] Each NostrilDAILY PRN, Reported on 12/01/2020 GENERIC [...] as of this encounter (statuses as of 08/11/2023) Active Problems Problem Noted Date Diagnosed Date Unspecified cirrhosis of liver 04/14/2020 Thrombocytopenia 10/15/2019 GENI positive 07/07/2019 PHT (pulmonary hypertension) 07/06/2019 Overview: Suspected on Echocardiogram when Hgb low. 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 Secondhand smoke exposure 07/06/2019 Environmental exposure 07/06/2019 Overview: Chickens, Ducks Pancytopenia documented as of this encounter (statuses as of 08/11/2023) Immunizations Name Administration Dates Next Due Pneumococcal [...] encounter Miscellaneous Notes * Telephone Encounter - Apolinar Reeves OSA - 08/11/2023 8:33 AM EST Nothing available sooner for hepatology. GI scheduling, is there a way to get this pt seen sooner? * Addendum Note - Latasha French DO [...] staff suggested MRI, will get report from [facility] * Telephone Encounter - Latasha French [...] today 08/05 to ensure she went to [facility]. If she did not yet go, [...] 1:40 PM EST Office Visit Family Practice [facility] 132 [facility] [place] [address] Sarah Galaviz DO [address] [place] [address] 08/21/2023 3:30 PM EST Office Visit Hematology/Oncology [facility] [address] [place], [place] [address] Tammy Hammond CRNP [address] [facility] [place] [address] 08/27/2023 11:00 AM EST Office Visit Cardiology, [facility] 132 [facility] [place] [address] Manish Rosales, DO 132 [facility] [place] [address] 10/31/2023 12:20 PM EST Office Visit Pulmonary Medicine, [facility] [address] [facility] [place] [address] Ray Rose, DO [address] [place] [address] 11/13/2023 9:00 AM EST Office Visit Rheumatology [place] [address] [facility] [place], [place] [address] Maico Carrillo CRNP [address] [place] [address] [place] [address] 12/01/2023 12:40 PM EDT Office Visit Hepatology, [facility] 132 [facility] [place] [address] Evangelina Dorado, DO 132 [facility] [place] [address] 02/11/2024 1:00 PM EDT Office Visit Family Practice [facility] 132 [facility] [place] [address] Sarah [place], DO 132 [facility] [place] [address] Scheduled Orders Name Type Priority Associated Diagnoses [...] 10/15/2019 LUNG CANCER SCREENING - USE SMARTSET [id number] Completed 07/09/2019 Zoster Vaccines Completed 07/10/2020, 04/14/2020 [...] documented as of this encounter Care Teams Donor Recruitment Manager Relationship Specialty Start Date End Date Sarah Galaviz DO [address] [place] [address] PCP - General Family Medicine 06/30/19 documented as of this encounter
--- OUTSIDE RECORDS SUMMARY | 2023-12-10 20:28 | External Medical Summary | Summary of Care ---
Author Name Unknown Organization [facility] Address [address] [facility] [place] [address] Phone [phone] Care Team Providers Care Clinical Phlebotomist Name Role Phone Sarah Galaviz DO Primary Care Provider [phone] Reason for Visit * Reason Comments Outpatient Testing Encounter Details Date Type Department Care Team (Late st Contact Info) Description 08/05/2023 12:50 PM EST Laboratory Laboratory, [facility] 132 [facility] [place] [address] [facility] 132 [place] [address] Hepatic cirrhosis, unspecified hepatic cirrhosis type, unspecified whether ascites present (HCC); Serum total bilirubin elevated; Jaundice; URI with cough and congestion Allergies No known active allergiesdocumented as of [...] 06/23/2020 Active Additional Information Patient taking differently:2 [place] Each NostrilDAILY PRN, Reported on 12/01/2020 GENERIC [...] 08/27/2023 11:00 AM EST Office Visit Cardiology, [facility] 132 [facility] [place] [address] Manish Rosales, DO 132 [facility] [place] [address] 10/31/2023 12:20 PM EST Office Visit Pulmonary Medicine, [facility] 132 [facility] [place] [address] Ray Rose DO [address] [place] [address] 11/13/2023 9:00 AM EST Office Visit Rheumatology [address] [place] [address] Maico Carrillo CRNP [address] [place] [address] [place] [address] 12/01/2023 12:40 PM EDT Office Visit Hepatology, [facility] 132 [facility] [place] [address] Evangelina Dorado, DO 132 [facility] [place] [address] 02/11/2024 1:00 PM EDT Office Visit Family Practice [facility] [address] [place] [address] Sarah Galaviz DO [address] [place] [address] Pending Results Name Type Priority Associated Diagnoses Date /Time CBC WITH WBC DIFFERENTIAL Lab Routine Hepatic cirrhosis, unspecified hepatic cirrhosis type, unspecified whether ascites present (HCC) Serum total bilirubin elevated Jaundice 08/05/2023 12:32 PM EST COMPREHENSIVE METABOLIC PANEL Lab Routine Hepatic cirrhosis, unspecified hepatic cirrhosis type, unspecified whether ascites present (HCC) Serum total bilirubin elevated Jaundice 08/05/2023 12:32 PM EST BNP, NT-PRO Lab Routine URI with cough and congestion 08/05/2023 12:32 PM EST CBC Lab Routine Hepatic cirrhosis, unspecified hepatic cirrhosis type, unspecified whether ascites present (HCC) Serum total bilirubin elevated Jaundice 08/05/2023 12:32 PM EST DIFFERENTIAL, AUTOMATED Lab Routine Hepatic cirrhosis, unspecified hepatic cirrhosis type, unspecified whether ascites present (HCC) Serum total bilirubin elevated Jaundice 08/05/2023 12:32 PM EST Health Maintenance Due Date Last Done [...] 10/15/2019 LUNG CANCER SCREENING - USE SMARTSET [id number] Completed 07/09/2019 Zoster Vaccines Completed 07/10/2020, 04/14/2020 GARDASIL-HPV IMMUNIZATION SERIES Aged Out No longer eligible based on patient's age to complete this topic MENINGOCOCCAL (MENACTRA/MENVEO) Aged Out No longer eligible based on patient's age to complete this topic documented as of this encounter Medical Devices Not on filedocumented as of this encounter Visit Diagnoses Diagnosis Hepatic cirrhosis, unspecified hepatic cirrhosis type, unspecified whether ascites present (HCC) Serum total bilirubin elevated Jaundice, unspecified, not of Jaundice Jaundice, unspecified, not of URI with cough and congestion documented in this encounter Additional Health Concerns Infection Onset Date Last Indicated Resolved Time Respiratory Rule-Out 08/05/2023 08/05/2023 documented as of this encounter Care Teams Clinical Phlebotomist Relationship Specialty Start Date End Date Sarah Galaviz DO [address] [place] [address] PCP - General Family Medicine 06/30/19 documented as of this encounter
--- OUTSIDE RECORDS SUMMARY | 2023-12-10 20:28 | External Medical Summary | Summary of Care ---
Author Name Unknown Organization [facility] Address [address] [facility] [place] [address] Phone [phone] Care Team Providers Care Vending Route Servicer Name Role Phone Sarah Galaviz DO Primary Care Provider [phone] Reason for Referral * Precert (Within 10 days (routine)) - Pending Review Specialty Diagnoses / Procedures Referred By Contac t Referred To Contact Radiology Diagnoses Thrombocytopenia (HCC) Hepatic cirrhosis, unspecified hepatic cirrhosis type, unspecified whether ascites present (HCC) Hyperbilirubinemia Transaminitis Procedures MRI ABDOMEN WO CONTRAST Latasha French DO [address] [place] [address] Referral ID Status Reason Start Date Expiration Date V isits Requested Visits Authorized [id number] Pending Review 08/08/2023 999 999 Reason for Visit * Reason Onset Date Comments Test Results 08/05/2023 Encounter Details Date Type Department Care Team (Late st Contact Info) Description 08/05/2023 Telephone Family Practice [facility] [address] [place] [address] Latasha French DO [address] [place] [address] Test Results Allergies No known active allergiesdocumented [...] 06/23/2020 Active Additional Information Patient taking differently:2 [place] Each NostrilDAILY PRN, Reported on 12/01/2020 GENERIC [...] encounter Miscellaneous Notes * Telephone Encounter - Hill Kyle OSA - 08/11/2023 4:34 PM EST Added to wait list for when any cancellations become available * Telephone Encounter - Apolinar Reeves OSA [...] staff suggested MRI, will get report from [facility] * Telephone Encounter - Latasha French [...] further work up per Dr French and K[facility] highly recommends this. Pt said not able to go right now and stressed she needs to go today and not wait. * Telephone Encounter - Latasha French DO - 08/05/2023 2:49 PM EST Please call pt later today 08/05 to ensure she went to [facility]. If she did not yet go, please put in nurse reminder for tomorrow 08/06 to call and follow up on this Thank you * Telephone Encounter - Latasha French DO - 08/05/2023 2:37 PM EST Pt with significant elevation in bili based on labs, spoke with [facility] (they had seen her last in 2019)recommending to go to ER for further workup. Advising to get urgent CT/MRCP Thank you documented in this encounter Plan of Treatment Upcoming Encounters Date Type Department Care Team (Late st Contact Info) Description 08/13/2023 1:40 PM EST Office Visit Family [facility] [address] [place] [address] Sarah Galaviz, DO [address] [place] [address] 08/21/2023 3:30 PM EST Office Visit Hematology/Oncology [facility] [address] [facility] [place] [address] Tammy Hammond CRNP 400 [facility] [place] [address] 08/27/2023 11:00 AM EST Office Visit Cardiology, [facility] 132 [facility] [place] [address] Manish Rosales, DO 132 [facility] [place] [address] 10/31/2023 12:20 PM EST Office Visit Pulmonary Medicine, [facility] 132 [facility] [place] [address] Ray Rose, DO [address] [place] [address] 11/13/2023 9:00 AM EST Office Visit Rheumatology [address], [place] [address] Maico Carrillo CRNP [address] [place] [address], [place] [address] 12/01/2023 12:40 PM EDT Office Visit Hepatology, [facility] [address] [place] [address] Evangelina Dorado, DO 132 [facility] [place] [address] 02/11/2024 1:00 PM EDT Office Visit Family Practice [facility] [address] [place] [address] Sarah Galaviz, DO [address] [place] [address] Scheduled Orders Name Type Priority Associated Diagnoses [...] 10/15/2019 LUNG CANCER SCREENING - USE SMARTSET [id number] Completed 07/09/2019 Zoster Vaccines Completed 07/10/2020, 04/14/2020 [...] documented as of this encounter Care Teams Vending Route Servicer Relationship Specialty Start Date End Date Sarah Galaviz DO [address] [place] [address] PCP - General Family Medicine 06/30/19 documented as of this encounter
--- OUTSIDE RECORDS SUMMARY | 2023-12-10 20:28 | External Medical Summary | Summary of Care ---
Author Name Unknown Organization [facility] Address [address] [facility] [place] [address] Phone [phone] Care Team Providers Care Media Monitor Name Role Phone Sarah Galaviz DO Primary Care Provider [phone] Reason for Referral * Evaluate & Treat - Unlimited Visits (Within 10 days (routine)) - Pending Review Specialty Diagnoses / Procedures Referred By Mechelle t Referred To Contact Rheumatology Diagnoses Thrombocytopenia (HCC) Pancytopenia (HCC) Positive GENI (antinuclear antibody) Deepa Chau DO [address] [place] [address] Referral ID Status Reason Start Date Expiration Date Visits Requested Visits Authorized [id number] Pending Review Specialty Services Required 3 999 [...] (HCC) Deepa Chau DO [address] [place] [address] Referral ID Status Reason Start Date Expiration Date Visits Requested Visits Authorized [id number] Pending Review Specialty Services Required 3 999 [...] Transaminitis Deepa Chau DO [address] [place] [address] Referral ID Status Reason Start Date Expiration Date Visits Requested Visits Authorized [id number] Pending Review Specialty Services Required 3 999 [...] (HCC) Deepa Chau DO [address] [place] [address] Referral ID Status Reason Start Date Expiration Date Visits Requested Visits Authorized [id number] Pending Review Specialty Services Required 3 999 [...] (HCC) Deepa Chau DO [address] [place] [address] Referral ID Status Reason Start Date Expiration Date Visits Requested Visits Authorized [id number] Pending Review Specialty Services Required 3 999 [...] Description 08/05/2023 11:20 AM EST Office Visit [facility] [address] [place] [address] Deepa Chau DO [address] [place] [address] Acute pharyngitis, unspecified etiology*; URI with cough [...] 06/23/2020 Active Additional Information Patient taking differently:2 [place] Each NostrilDAILY PRN, Reported on 12/01/2020 GENERIC [...] Ray Rose DO 2.5 mg at 07/09/19 1435 Past Medical History: Diagnosis Date Allergic rhinitis [...] by Eyal Tom MD at [facility] Review of patient's allergies indicates: No Known [...] cough and congestion 08/05/2023 12:00 PM EST GROUP A STREP PCR Lab [...] 10/15/2019 LUNG CANCER SCREENING - USE SMARTSET 40296 Completed 07/09/2019 Zoster Vaccines Completed 07/10/2020, 04/14/2020 [...] documented as of this encounter Care Teams Media Monitor Relationship Specialty Start Date End Date Sarah Galaviz DO [address] [place] [address] PCP - General Family Medicine 06/30/19 documented as of this encounter"
--- OUTSIDE RECORDS SUMMARY | 2023-12-10 20:28 | External Medical Summary | Summary of Care ---
Author Name Unknown Organization [facility] Address [address] [facility] [place] [address] Phone [phone] Care Team Providers Care Judicial Registrar Name Role Phone Sarah Galvaiz DO Primary Care Provider [phone] Reason for Visit * Reason Onset Date Comments Test Results 08/05/2023 Encounter Details Date Type Department Care Team (Late st Contact Info) Description 08/05/2023 Telephone Family Practice [facility] [address] [place] [address] Deepa Chau DO [address] [place] [address] Test Results Allergies No known active allergiesdocumented [...] 06/23/2020 Active Additional Information Patient taking differently:2 [place] Each NostrilDAILY PRN, Reported on 12/01/2020 GENERIC [...] Miscellaneous Notes * Telephone Encounter - Deepa Chau DO - 08/08/2023 9:16 AM EST Please set up hospital follow up appt for next week any provider * Telephone Encounter - Deepa Chau DO - 08/06/2023 12:28 PM EST Noted [...] staff suggested MRI, will get report from [facility] * Telephone Encounter - Deepa Chau DO - 08/06/2023 12:16 PM EST Please [...] ER for further work up per Dr Chau and GI highly recommends this. Pt said not able to go right now and stressed she needs to go today and not wait. * Telephone Encounter - Deepa Chau DO - 08/05/2023 2:49 PM EST Please call pt later today 08/05 to ensure she went to [facility]. If she did not yet go, please put in nurse reminder for tomorrow 08/06 to call and follow up on this Thank you * Telephone Encounter - Deepa Chau DO - 08/05/2023 2:37 PM EST Pt [...] 08/27/2023 11:00 AM EST Office Visit Cardiology, [facility] [address] [place] [address] Manish Rosales, DO [address] [place] [address] 10/31/2023 12:20 PM EST Office Visit Pulmonary Medicine, [facility] [address] [facility] [place] [address] Ray Rose, DO [address] [place] [facility] [place] [address] 11/13/2023 9:00 AM EST Office Visit Rheumatology [place] [address]00 [facility] [place] [address] Maico Carrillo CRNP [address] [facility] [place] [address] 12/01/2023 12:40 PM EDT Office Visit Hepatology, [facility] [address] [facility] [place] [address] Evangelina Dorado, DO [address] [place] [address] 02/11/2024 1:00 PM EDT Office Visit Family Practice [facility] [address] [facility] [place] [address] Sarah Galaviz, DO [address] [place] [address] Health Maintenance Due Date Last Done Comments [...] 10/15/2019 LUNG CANCER SCREENING - USE SMARTSET 56259 Completed 07/09/2019 Zoster Vaccines Completed 07/10/2020, 04/14/2020 GARDASIL-HPV IMMUNIZATION SERIES Aged Out No longer eligible based on patient's age to complete this topic MENINGOCOCCAL (MENACTRA/MENVEO) Aged Out No longer eligible based on patient's age to complete this topic documented as of this encounter Medical Devices Not on filedocumented as of this encounter Additional Health Concerns Infection Onset Date Last Indicated Resolved Time Respiratory Rule-Out 08/05/2023 08/05/2023 023 6:43 PM EST documented as of this encounter Care Teams Judicial Registrar Relationship Specialty Start Date End Date Sarah Galaviz DO [address] [place] [address] PCP - General Family Medicine 06/30/19 documented as of this encounter
--- OUTSIDE RECORDS SUMMARY | 2023-12-10 20:28 | External Medical Summary ---
Author Name Unknown Address Unknown Organization K01:[facility] - [address] [place], [place] [address]e. [facility] [address] Laboratory Report Ordering Provider Test Date Status KARTHIKEYAN PAGAN 08/05/2023 12:00:43 Final Observation Date Value Abnormality Reference (Units) Status Streptococcus pyogenes DNA [Presence] in Throat by DANIS with probe detection 08/05/2023 12:00:43 Negative. No Group A Streptococcus detected by PCR (amplified probe). Negative Final This test was developed and its performance characteristics determined by [email or web address]. It has not been cleared or approved by the FDA. The laboratory is regulated under CLIA as qualified to perform high- complexity testing. This test is used for clinical purposes. It should not be regarded as investigational or for research. Performing Location [facility] - [address] [facility] [address]
--- OUTSIDE RECORDS SUMMARY | 2023-12-10 20:28 | External Medical Summary | Summary of Care ---
Author Name Unknown Organization [facility] Address [address] [facility] [place] [address] Phone [phone] Care Team Providers Care Manager Management Name Role Phone Sarah Galaviz DO Primary Care Provider [phone] Reason for Visit * Reason Onset Date Comments Test Results 08/05/2023 Encounter Details Date Type Department Care Team (Late st Contact Info) Description 08/05/2023 Telephone Family Practice [facility] [address] [place] [address] Deepa French DO [address] [place] [address] Test Results Allergies No known active allergiesdocumented [...] 06/23/2020 Active Additional Information Patient taking differently:2 [place] Each NostrilDAILY PRN, Reported on 12/01/2020 GENERIC [...] ER f/u OV * Telephone Encounter - Deepa French DO - 08/08/2023 9:16 AM EST Please set up hospital follow up appt for next week any provider * Telephone Encounter - Deepa French DO - 08/06/2023 12:28 PM EST [...] staff suggested MRI, will get report from [facility] * Telephone Encounter - Deepa French DO - 08/06/2023 12:16 PM EST [...] not wait. * Telephone Encounter - Deepa French DO - 08/05/2023 2:49 PM EST Please call pt later today 08/05 to ensure she went to [facility]. If she did not yet go, please put in nurse reminder for tomorrow 08/06 to call and follow up on this Thank you * Telephone Encounter - Deepa French DO - 08/05/2023 2:37 PM EST [...] 1:40 PM EST Office Visit Family Practice [facility] [address] [facility] [place] [address] Sraah Galaviz, DO [address] [facility] [place] [address] 08/21/2023 3:30 PM EST Office Visit [facility] [address] Tammy Hammond CRNP [address] [place] [address] 08/27/2023 11:00 AM EST Office Visit Cardiology, [facility] [address] [facility] [place] [address] Manish Rosales, DO [address] [facility] [place] [address] 10/31/2023 12:20 PM EST Office Visit Pulmonary Medicine, [facility] [address] [facility] [place] [address] Ray Rose, DO [address] [place] [address] 11/13/2023 9:00 AM EST Office Visit Rheumatology [place] [address] [facility] [place] [address] Maico Carrillo CRNP [address] [facility] [place], [place] [address] 12/01/2023 12:40 PM EDT Office Visit Hepatology, [facility] [address] [facility] [place] [address] Evangelina Dorado, DO [address] [facility] [place] [address] 02/11/2024 1:00 PM EDT Office Visit Family Practice [facility] [address] [place] [address] Sarah Galaviz DO [address] [place] [address] Health Maintenance Due Date Last Done Comments [...] 10/15/2019 LUNG CANCER SCREENING - USE SMARTSET 69280 Completed 07/09/2019 Zoster Vaccines Completed 07/10/2020, 04/14/2020 [...] documented as of this encounter Care Teams Manager Management Relationship Specialty Start Date End Date Sarah Galaviz DO [address] [place] [address] PCP - General Family Medicine 06/30/19 documented as of this encounter
--- OUTSIDE RECORDS SUMMARY | 2023-12-10 20:28 | External Medical Summary | Summary of Care ---
Author Name Unknown Organization [facility] Address [address] [facility] [place] [address] Phone [phone] Care Team Providers Care Automation Consultant Name Role Phone Sarah Galaviz DO Primary Care Provider [phone] Reason for Referral * Evaluate & Treat - Unlimited Visits (Within 10 days (routine)) - Pending Review Specialty Diagnoses / Procedures Referred By Mechelle t Referred To Contact Rheumatology Diagnoses Thrombocytopenia (HCC) Pancytopenia (HCC) Positive GENI (antinuclear antibody) Deepa Chau DO [address] [place] [address] Referral ID Status Reason Start Date Expiration Date Visits Requested Visits Authorized [id number] Pending Review Specialty Services Required 3 999 [...] (HCC) Deepa Chau DO [address] [place] [address] Referral ID Status Reason Start Date Expiration Date Visits Requested Visits Authorized [id number] Pending Review Specialty Services Required 3 999 [...] bilirubin elevated Jaundice Thrombocytopenia (HCC) Transaminitis Deepa hCau DO [address] [place] [address] Referral ID Status Reason Start Date Expiration Date Visits Requested Visits Authorized [id number] Pending Review Specialty Services Required 3 999 [...] (HCC) Deepa Chau DO [address] [place] [address] Referral ID Status Reason Start Date Expiration Date Visits Requested Visits Authorized [id number] Pending Review Specialty Services Required 3 999 [...] (HCC) Deepa Chau DO [address] [place] [address] Referral ID Status Reason Start Date Expiration Date Visits Requested Visits Authorized [id number] Pending Review Specialty Services Required 3 999 [...] Description 08/05/2023 11:20 AM EST Office Visit [facility] [address] [place] [address] Deepa Chau DO [address] [place] [address] Acute pharyngitis, unspecified etiology*; URI with cough [...] 06/23/2020 Active Additional Information Patient taking differently:2 [place] Each NostrilDAILY PRN, Reported on 12/01/2020 GENERIC [...] Ray Rose DO 2.5 mg at 07/09/19 5492 Past Medical History: Diagnosis Date Allergic rhinitis [...] by Eyal Tom MD at [facility] Review of patient's allergies [...] AM EST Office Visit Cardiology, [facility] [address] [facility] [place], [place] [address] Manish Rosales, DO 132 [facility] [place] [address] 10/31/2023 12:20 PM EST Office Visit Pulmonary Medicine, [facility] [address] [facility] [place] [address] Ray Rose, DO [address] [place] [facility] [place] [address] 11/13/2023 9:00 AM EST Office Visit Rheumatology [facility] [address] [facility] [place] [address] Maico Carrillo CRNP [address] [facility] [place], [place] [address] 12/01/2023 12:40 PM EDT Office Visit Hepatology, [facility] [address] [facility] [place] [address] Evangelina Dorado, DO [address] [facility] [place] [address] 02/11/2024 1:00 PM EDT Office Visit Family Practice [facility] [address] [facility] [place] [address] Sarah Galaviz, DO 132 [facility] [place] [address] Pending Results Name Type Priority Associated Diagnoses Date /Time RESPIRATORY PATHOGEN PANEL, PCR Lab Routine Acute pharyngitis, unspecified etiology URI with cough and congestion 08/05/2023 12:00 PM EST XR CHEST 2 VIEWS Medical Imaging Routine URI with cough and congestion 08/05/2023 12:21 PM EST BNP, NT-PRO Lab Routine URI with cough and congestion 08/05/2023 12:32 PM EST GROUP A STREP PCR Lab Routine Acute pharyngitis, unspecified etiology URI with cough and congestion 08/05/2023 12:00 PM EST Scheduled Orders Name Type Priority Associated Diagnoses Orde r Schedule RESPIRATORY PATHOGEN PANEL, PCR Lab Routine Acute pharyngitis, unspecified etiology URI with cough and congestion Expected: 08/05/2023 (Approximate), Expires: 08/04/2024 BNP, NT-PRO [...] 10/15/2019 LUNG CANCER SCREENING - USE SMARTSET [address] Completed 07/09/2019 Zoster Vaccines Completed 07/10/2020, 04/14/2020 [...] etiology documented in this encounter Results * (ABNORMAL) COMPREHENSIVE METABOLIC PANEL (08/05/2023 12:32 PM EST) BUN 12 6 - 20 mg/dL 08/05/2023 1:50 PM EST [facility] [place] [facility] Creatinine 0.9 0.5 - 1.0 mg/dL 08/05/2023 1:50 PM EST [facility] [place] [facility] Estimated Glomerular Filtration Rate 73 >=60 mL/min 08/05/2023 1:50 PM EST [facility] [place] [facility] Comment:eGFR is calculated b ased on the CKD-EPI 2020 equation Sodium 140 135 - 146 mmol/L 08/05/2023 1:50 PM EST [facility] [place] [facility] Potassium 4.1 3.5 - 5.1 mmol/L 08/05/2023 1:50 PM EST [facility] [place] [facility] Chloride 108(H) 98 - 107 mmol/L 08/05/2023 1:50 PM EST [facility] [place] [facility] CO2 19(L) 22 - 32 mmol/L 08/05/2023 1:50 PM EST [facility] [place] [facility] Anion Gap 13 7 - 15 mmol/L 08/05/2023 1:50 PM EST [facility] [place] [facility] Glucose 104 70 - 120 mg/dL 08/05/2023 1:50 PM EST [facility] [place] [facility] Albumin 4.1 3.8 - 5.0 g/dL 08/05/2023 1:50 PM EST [facility] [place] [facility] AST 41(H) 10 - 35 U/L 08/05/2023 1:50 PM EST [facility] [place] [facility] Alkaline Phosphatase 135(H) 35 - 130 U/L 08/05/2023 1:50 PM EST [facility] [place] [facility] Bilirubin, Total 10.5(H) <=1.2 mg/dL 08/05/2023 1:50 PM EST [facility] [place] [facility] Calcium 9.1 8.4 - 10.2 mg/dL 08/05/2023 1:50 PM EST [facility] [place] [facility] Protein 7.5 6.0 - 8.3 g/dL 08/05/2023 1:50 PM EST [facility] [place] [facility] ALT 26 10 - 35 U/L 08/05/2023 1:50 PM EST [facility] [place] [facility] Blood Venous blood specimen / Unknown Venipuncture / Unknown 08/05/2023 12:32 PM EST 08/05/2023 12:32 PM EST Deepa Chau DO LAB BLOOD ORDERABLE S [facility] [place] [facility] [address] [place] [address] * STREP A SCREEN, POINT OF CARE [...] documented as of this encounter Care Teams Automation Consultant Relationship Specialty Start Date End Date Sarah Galaviz DO [address] [place] [address] PCP - General Family Medicine 06/30/19 documented as of this encounter"
--- OUTSIDE RECORDS SUMMARY | 2023-12-10 20:28 | External Medical Summary | Summary of Care ---
Author Name Unknown Organization [facility] Address [address] [facility] [place] [address] Phone [phone] Care Team Providers Care Electro Plater Name Role Phone Sarah Galaviz DO Primary Care Provider [phone] Reason for Visit * Reason Onset Date Comments Test Results 08/05/2023 Encounter Details Date Type Department Care Team (Late st Contact Info) Description 08/05/2023 Telephone Family Practice [facility] [address] [place] [address] Deepa Chau DO [address] [place] [address] Test Results Allergies No known active allergiesdocumented as of this encounter (statuses as of 08/06/2023) Medications Medication Sig Dispensed Refills Start Date End Date Status Acetaminophen ER (TYLENOL 8 HOUR ARTHRITIS PAIN) 650 MG TBCR Take 1 Tablet by mouth every 8 hours as needed for Fever. 0 Active Fluticasone Propionate 50 MCG/ACT Nasal Suspension Administer 2 Sprays into each nostril daily. 16 g 3 06/23/2020 Active Additional Information Patient taking differently:2 [place] Each NostrilDAILY PRN, Reported on 12/01/2020 GENERIC [...] as of this encounter (statuses as of 08/06/2023) Active Problems Problem Noted Date Diagnosed Date Unspecified cirrhosis of liver 04/14/2020 Thrombocytopenia 10/15/2019 GENI positive 07/07/2019 PHT (pulmonary hypertension) 07/06/2019 Overview: Suspected on Echocardiogram when Hgb low. 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 If she did not yet go, please [...] 08/27/2023 11:00 AM EST Office Visit Cardiology, [facility] [address] [place] [address] Manish Rosales DO [address] [place] [address] 10/31/2023 12:20 PM EST Office Visit Pulmonary Medicine, [facility] [address] [place] [address] Ray Rose DO [address] [facility] [address] 11/13/2023 9:00 AM EST Office Visit Rheumatology [facility] [address] [place] [address] Maico Carrillo CRNP [address] [facility] [place] [address] 12/01/2023 12:40 PM EDT Office Visit Hepatology, [facility] [address] [facility] [place] [address] Evangelina Dorado, DO [address] [place] [address] 02/11/2024 1:00 PM EDT Office Visit Family Practice [facility] [address] [place] [address] Sarah Galaviz, DO [address] [facility] [place] [address] Health Maintenance Due Date Last Done Comments [...] 10/15/2019 LUNG CANCER SCREENING - USE SMARTSET 96[address] Completed 07/09/2019 Zoster Vaccines Completed 07/10/2020, 04/14/2020 [...] documented as of this encounter Care Teams Electro Plater Relationship Specialty Start Date End Date Sarah Galaviz DO [address] [place] [address] PCP - General Family Medicine 06/30/19 documented as of this encounter
[2023-12-10] MEDS: SILDENAFIL CITRATE 20 MG TABLET PO SCH (20:41)
[2023-12-10] MEDS: GADOBUTROL 65ML VIAL IV ONE (22:26)
[2023-12-10] MEDS: oxyCODONE HCL IR 5 MG TAB (IMMEDIATE RELEASE) PO PRN (23:49)
--- NOTE | 2023-12-10 23:53 | Magnetic Resonance Report ---
Exam(s): MRI L SPINE W/WO Contrast IV Amt: 8CC GADAVIST EXAM: MR Lumbar Spine Without and With Intravenous Contrast CLINICAL HISTORY: Reason for exam: lytic lesions, fracture on abd/pelvis CT. TECHNIQUE: Magnetic resonance images of the lumbar spine without and with intravenous contrast in multiple planes. CONTRAST: Patient received 8CC GADAVIST of IV contrast COMPARISON: CT abdomen pelvis 12/10/2023 FINDINGS: Extensive marrow heterogeneity. With associated enhancement on the postcontrast imaging. There is a superior endplate compression deformity at L4 without posterior cortical retropulsion. Remainder of the vertebral body heights are preserved. Note significant disc disease. Normal appearance of the distal cord. No epidural collection. No spinal canal or foraminal stenosis. IMPRESSION: 1. Extensive heterogeneous marrow with associated enhancement. Differential is broad and includes metastatic disease, myeloma, leukemia, other myelodysplastic processes, and less likely metabolic disease. Consider bone scan and/or marrow biopsy for further evaluation. 2. Acute superior endplate compression deformity at L4. Electronically signed by: Antwon Esteves MD 12/10/23 23:52 PM
[2023-12-11] MEDS: ONDANSETRON INJ 2 MG/ML 2 ML VIAL IV PRN (05:16)
[2023-12-11 06:35] LABS: Hematocrit (blood only) 27.6 % (37.0-47.0); Hemoglobin 7.8 g/dl (12.0-16.0); Mean Corpuscular Hemoglobin 25.4 pg (25.0-34.0); Mean Corpuscular Hgb Conc 28.3 g/dL (32.0-36.0); Mean Corpuscular Volume 89.9 fL (80.0-100.0); Nucleated RBC # (auto) 0.11 K/uL (0.00-0.12); Nucleated RBC % (auto) 1.8 %; Platelet Count 98 K/uL (130-400); RDW Coefficient of Variation 24.6 % (11.5-14.5); Red Blood Count 3.07 M/uL (4.20-5.40); White Blood Count 6.16 K/ul (4.8-10.8)
[2023-12-11 06:51] LABS: Alanine Aminotransferase 37 U/L (7-52); Albumin Globulin Ratio 1.1 (0.9-2); Albumin Level 3.6 gm/dl (3.4-5.0); Alkaline Phosphatase 154 U/L (34-104); Anion Gap 10 (3-11); Aspartate Aminotransferase 41 U/L (13-39); BUN Creatinine Ratio 13.7 (10-20); Bilirubin,Total 12.1 mg/dl (0.2-1.0); Blood Urea Nitrogen 19 mg/dl (6-23); Calcium 9.3 mg/dl (8.6-10.3); Carbon Dioxide 20 mmol/L (21-32); Chloride 106 mmol/L (98-107); Creatinine Clr Calc Pharmacy 42.3 ml/min; Est GFR (African American) 47.3 ml/min; Est GFR (Non-African American) 40.8 ml/min; Ferritin 365.6 ng/ml (8-388); Globulin 3.2 gm/dl (2.5-4.0); Glucose 147 mg/dl (70-99(Fasting)); Iron 474 mcg/dl (35-150); Magnesium 2.3 mg/dl (1.7-2.4); Phosphorus 5.3 mg/dl (2.5-4.9); Potassium 4.7 mmol/L (3.5-5.1); Sodium 136 mmol/L (136-145); Total Protein 6.8 gm/dl (6.0-8.3); Unsaturated Iron Binding Cap < 55 mcg/dl (155-355)
[2023-12-11 06:54] LABS: Anisocytosis Present; Basophils # (auto) 0.02 K/uL (0.00-0.20); Basophils % (auto) 0.3 %; Eosinophils # (auto) 0.01 K/uL (0.00-0.50); Eosinophils % (auto) 0.2 %; Immature Granulocytes # (auto) 0.05 K/uL (0.01-0.20); Immature Granulocytes % (auto) 0.8 %; Lymphocytes # (auto) 1.05 K/uL (1.20-3.40); Monocytes # (auto) 0.29 K/uL (0.11-0.59); Monocytes % (auto) 4.7 %; Neutrophils # (auto) 4.74 K/uL (1.40-6.50); Ovalocytes 1+; Polychromasia 1+; Tear Drop Cells 1+
--- NOTE | 2023-12-11 07:08 | Pulmonology Progress Note ---
Date of Service December 11, 2023 Assessment & Plan (1) Hyperbilirubinemia: (2) Right heart failure due to pulmonary hypertension: (3) SOB (shortness of breath) on exertion: (4) Chest pain: Chest pain type: unspecified Qualified Code(s): R07.9 - Chest pain, unspecified Plan 2D echo 12/10/2023: EF 65 to 70%, RVSP > 100, RV systolic function moderately reduced CTA chest 12/10/2023 personally reviewed: No pleural effusion Cardiomegaly with significant dilation of the main pulmonary trunk as well as the right atrium No significant mediastinal lymphadenopathy -- Pulmonary arterial hypertension NYHC III-IV As per the patient she was diagnosed with cardiac cath and was started on sildenafil back in [id number] Right now she is compliant with her sildenafil and tries to take it 3 times a day. She was supposedly on Ambrisentan as well but she stopped it on her own. Procalcitonin 0.11 BNP 8 Respiratory bio fire negative for everything --Indirect bilirubinemia T. bili 12.6 with direct bilirubin 1.2 I will order autoimmune hemolysis workup Patient also takes Tylenol on a regular basis. In the last week she took it for maybe 3-4 days up to 2.7 g a day Salicylate and acetaminophen level was negative Plan: Based on the labs today it seems that patient likely falls into Child-Pal B given the elevated bilirubin and small ascites. It is still okay to give sildenafil at the same dose for Child-Pal A-B Ambrisentan will be contraindicated Patient had lactic acidosis, difficult to clear lactic acid given the issues with liver. It is very difficult to ascertain the volume status of the patient given that she has severe pulmonary hypertension. Given the BRY, I will give her 125 mill an hour of Plasma-Lyte for total of 500 mL only. Patient's RVSP has increased significantly compared to the previous echo. Given the limitations of p.o. medication, I think IV prostacyclin should be thought of. Patient is being managed at [facility]. Would recommend transfer to a tertiary care center for the treatment of her underlying severe pulmonary hypertension She will also benefit from evaluation from gastroenterology for the severely elevated bilirubin. Should the patient be given N-acetylcysteine will be deferred to primary team and then but I think it is reasonable to think about giving it to her New onset seizure. I will order a CT head to be done stat Ativan to be given as needed Zofran for nausea. Will discuss with pharmacy if the patient will be eligible for Keppra and give her a dose. Please note the above document was generated using voice recognition software. It may contain grammatical, syntax or spelling errors.Any formal questions or concerns about the content, text or information contained within the body of this dictation should be directly addressed to the provider for clarification. Admission and Anticipated Discharge Date Admission Date: December 10, 2023 Subjective Patient seen and examined at bedside. She was actively seizing when I entered the room. She was made comfortable on the bed with the help of GOLD [place]. She was throwing up. There was no significant postictal state. She was confused for maybe less than 5-minute but able to answer questions She denied any chest pain, no headache, no blurry vision. Did complain of epigastric discomfort. Never had any history of seizures in the past. Review of Systems 2 Review of Systems: All systems reviewed & are unremarkable except as noted in Subjective Physical Exam 2 Physical Exam: Constitutional: No acute distress HEENT: EOMI, PERRLA, scleral icterus Respiratory system: Good air entry bilaterally, no wheeze, no rhonchi, positive crackles bilateral lower lobes CVS: S1-S2 positive, positive 2 out of 6 systolic murmur appreciated best at the left parasternal border Abdomen: Soft, nontender, nondistended, positive bowel sounds x4 Extremities: +2 pulses bilaterally radialis/ dorsalis pedis, no cyanosis, no edema Neuro: Awake alert oriented x3 (after the seizure episode), answering all the questions appropriately Psych: Normal mood and affect G/U: No Delgado Skin: no rashes, warm and dry Lymphatic: no cervical or axillary lymphadenopathy Results & Data Results & Data Vital Signs (Past 12 Hours) Vital Signs Temp Pulse Pulse Pulse Resp BP Pulse Ox 12/11/23 04:03 36.4 C L 97 H 18 93/66 L 96 12/11/23 01:06 96 H 12/10/23 23:41 36.4 C L 96 H 18 94/62 L 97 12/10/23 20:39 98 H 24 109/77 92 12/10/23 20:01 36.4 C L 101 H 18 91/69 L 100 12/10/23 20:00 O2 Del Method 12/11/23 04:03 Room Air 12/11/23 01:06 12/10/23 23:41 Room Air 12/10/23 20:39 Room Air 12/10/23 20:01 Room Air 12/10/23 20:00 Room Air Laboratory Results 12/11/23 05:51 12/11/23 05:51 PG Care Time/CCT Total # of Minutes Spent Total Time Spent with Patient: Total time spent is greater than 50% in coordination of care (as documented) at patient's floor/unit and/or counseling patient: Coding Level of Care Code 30316 SUB INP/OBS CARE 3/50MIN Diagnoses Hyperbilirubinemia E80.6 Right heart failure due to pulmonary hypertension I27.29; I50.810 SOB (shortness of breath) on exertion R06.02 Chest pain R07.9 Chest pain type: unspecified
[2023-12-11 07:12] LABS: Estimated Average Glucose 85 mg/dl; Hemoglobin A1C 4.6 % (4.5-5.6)
[2023-12-11] MEDS: PLASMA-LYTE A 500 ML IV SCH (08:13)
[2023-12-11] MEDS: POTASSIUM CHLORIDE CRTAB 20 MEQ TABCR PO SCH (08:16)
[2023-12-11] MEDS ORDERED: LORazepam 2 MG in SYRINGE 1 ML IV PRN (08:48)
[2023-12-11] MEDS ORDERED: FUROSEMIDE 20 MG TAB PO SCH (09:00)
[2023-12-11] MEDS: levETIRAcetam IV 1,000 MG in 0.9 % SODIUM CHLORIDE 100 ML IV ONE (09:57)
[2023-12-11] MEDS: PANTOprazole 40 MG in SYRINGE 0 ML IV SCH (10:21)
[2023-12-11] MEDS ORDERED: ONDANSETRON INJ 2 MG/ML 2 ML VIAL IV PRN (11:01)
[2023-12-11] MEDS: ONDANSETRON INJ 2 MG/ML 2 ML VIAL ONE (11:08)
--- NOTE | 2023-12-11 12:12 | CT Scan Report ---
HEAD CT NONCONTRAST CT DOSE: 1250.21 mGy.cm HISTORY: Seizure TECHNIQUE: Multiaxial CT images of the head were performed without the use of intravenous contrast. A utomated exposure control was utilized for this study. A dose lowering technique was utilized adheri ng to the principles of ALARA. Comparison: Head CT 12/10/2023. Findings: The paranasal sinuses and mastoid air cells are clear. The calvarium and skull base are int act. The ventricles and sulci are within normal limits. There is no mass, hematoma, midline shift, or acute infarct. Impression: No acute intracranial abnormality. ACT 112: Negative or not required by law. Electronically signed by: Chevy Jason M.D. 12/11/2023 12:10 PM
--- NOTE | 2023-12-11 12:18 | Hospitalist Progress Note ---
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 Acute hypoxic respiratory Failure Dyspnea on Exertion Secondary to right-sided heart failure due to significant pulmonary hypertension--NYHC III-IV --CTA:There is no evidence of pulmonary embolus in the main, lobar, or segmental pulmonary arteries. Marked cardiomegaly with evidence of pulmonary artery hypertension. There is no airspace consolidation or pleural effusion. Cirrhotic liver morphology and splenomegaly. See report of abdominal CT performed concurrently for detailed intra-abdominal findings. Subtle sclerotic foci are seen throughout the visualized bony structures. These are nonspecific, and although this could potentially be on a metabolic basis, bony metastatic disease is not excluded. Correlate for any oncological history. --ECHO: Left ventricle cavity is small. Borderline concentric LVH. Left ventricle is hyperdynamic. Left ventricle wall motion is normal. EF 65 to 70%. Flattened septum is consistent with right pressure/volume overload. Right ventricle is severely dilated. Right ventricular systolic function is moderately reduced. Severe tricuspid regurgitation. Right ventricle systolic pressure is severely elevated, estimated at > 100 mmHg. When compared to prior echo in 2020, tricuspid insufficiency increased and pulmonary pressures have elevated further. --Biofire: Negative --Currently saturating low 90s on room air -Supplemental oxygen as needed Resume home diuretics as able -- Continue on sildenafil. Patient will require IV prostacyclin. Appreciate pulmonology input Given complex patient's condition, patient will be transferred to tertiary care hospital for further management As per prior provider: Right Heart failure in the setting of Pulmonary Hypertension Known Hx of pulmonary HTN, noncompliant with full treatment for PAH due to cost. States currently only taking her sildenafil 20mg TID and home Lasix 20mg daily with KCl supplementation Was previously prescribed ambrisentan 10mg daily but was not taking it due to cost Follows with [facility] Had right sided heart cath in 2019, was lost to follow up for some time BNP of 2137 Echo noting worsening PAH and right sided heart failure, tricuspid regurg Chest CTA noting "marked cardiomegaly with evidence of pulmonary artery hypertension" Cardiology consulted for right sided heart failure recs in this setting -recommending transfer to tertiary care center Pulmonology consulted for PAH -recommending transfer to tertiary care center for IV prostacyclin. Notes use of the ambrisentan pt previously stopped taking CI in setting of cirrhosis Continue with home sildenafil, lasix and KCl regimen Pt accepted for transfer and further care at [facility]. New onset seizure CT head:No acute intracranial abnormality. MRI brain pending Received loading dose of Keppra Neurology consulted Seizure precautions Cirrhosis Congestive Hepatopathy Hyperbilirubinemia--elevated indirect bilirubin --CT ABD:Cirrhotic liver with evidence of portal hypertension including moderate splenomegaly and varices formation. Trace fluid within the pelvis. Although not definitive, the CT findings raise the possibility of a cardiac etiology for cirrhosis. . Small gallstones within the gallbladder. Moderate gallbladder wall thickening without gallbladder distention. The gallbladder wall thickening is nonspecific although not highly suggestive of acute cholecystitis. This could be related to liver disease/portal hypertension. No biliary or pancreatic ductal dilatation. Numerous subtle skeletal lesions. Although these may be metabolic, findings are suspicious for myeloma or metastatic disease. Oncology consultation is recommended. Thickened endometrium. Nonemergent pelvic ultrasound correlation with postmenopausal bleeding is recommended. Bilateral nephrolithiasis. No ureteral calculi. No hydronephrosis. Indeterminate 1.2 cm left lower pole renal lesion. Mild fracture of the superior endplate of L4. This is age indeterminate but new since CT of August 05, 2023. --Pt has been scheduled to have a liver biopsy multiple times over the last 4 years. --GI consulted -- Peripheral smear as below --Haptoglobin level pending --Reticulocyte hemoglobin content 27 --Immature reticulocyte fraction 36% -- Avoid nephrotoxic agents as able --Monitor LFTs Hepatic Encephalopathy Pt came in confused to the ED Ammonia level normal CT head as above MRI brain pending --Salicylate level, acetaminophen level normal --Urine drug screen pending Mentation seems to be back to baseline Currently oriented x 3 Possible metastatic Disease Lumbar fracture as above Noted on CT abd/pelvis lytic lesions Pt with noted chronic hx of back pain -MRI lumbar spine:Extensive heterogeneous marrow with associated enhancement. Differential is broad and includes metastatic disease, myeloma, leukemia, other myelodysplastic processes, and less likely metabolic disease. Consider bone scan and/or marrow biopsy for further evaluation. Acute superior endplate compression deformity at L4. -- Peripheral smear: There is no significant platelet clumping or satellitosis.The peripheral smear is remarkable for a normocytic anemia and thrombocytopenia. The red cells are atypical in appearance with a dimorphic look. This is frequently seen with recent blood transfusions (though none is noted in the patient's file) but can also be seen with myelodysplastic changes. There is some dysplasia seen in the nucleated reds and given the recent spine imaging a bone marrow biopsy is recommended for further evaluation. Some mild rouleaux is also present and a marrow biopsy could also evaluate for myeloma. Given the scattered schistocytes and spherocytes, work-up to exclude a component of hemolysis is recommended. Please correlate clinically. -- SPEP, UPEP ordered Iron Def Anemia Follows with hematology usually gets iron infusions Splenomegaly Thrombocytopenia Follows with hematology outpt Hepatic Lesion Gallstones Calcified gallstones noted on CT CT abd/pelvis as above --Liver USD:Cirrhotic liver. Hypoechoic lesion in the left hepatic lobe measuring 11 mm which is incompletely characterized. Consider MRI abdomen with and without contrast to evaluate for HCC. 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 Patient admits to having nausea associated with vomiting this morning States having generalized weakness and feels tired Denies any chest pain, dyspnea, abdominal pain, dizziness No other complaints Review of Systems Review of Systems: All systems reviewed & are unremarkable except as noted in Subjective Physical Exam Physical Exam: Physical Exam: Vitals signs as noted above General Appearance:Moderately built and nourished, no apparent distress, Ill appearing Head: normocephalic, Atraumatic Eyes: normal inspection, EOMI Neck: supple, Trachea midline Respiratory/Chest: Decreased breath sounds, CTA, No accessory muscle use Cardiovascular: S1, S2, +murmur Abdomen/GI:Soft, Non tender, Bowel sounds present Extremities/Musculoskeletal:normal inspection, no edema Neurologic/Psych:AAOX3, grossly no focal neurological deficits Skin: normal color, warm, +Jaundice Results & Data Results & Data Vital Signs (Past 12 Hours) Vital Signs Temp Pulse Pulse Pulse Resp BP Pulse Ox 12/11/23 11:35 36.7 C 97 H 17 91/66 L 93 12/11/23 08:11 36.4 C L 100 H 16 99/74 L 92 12/11/23 04:03 36.4 C L 97 H 18 93/66 L 96 12/11/23 01:06 96 H O2 Del Method 12/11/23 11:35 Room Air 12/11/23 08:11 Room Air 12/11/23 04:03 Room Air 12/11/23 01:06 Laboratory Results Short CBC 12/11/23 Range/Units 05:51 WBC 6.16 (4.8-10.8) K/ul Hgb 7.8 L (12.0-16.0) g/dl Hct 27.6 L (37.0-47.0) % Plt Count 98 L (130-400) K/uL BMP 12/11/23 05:51 Sodium 136 Potassium 4.7 D Chloride 106 Carbon Dioxide 20 L BUN 19 Creatinine 1.39 H Glucose 147 H Calcium 9.3 Liver Function 12/11/23 Range/Units 05:51 Total Bilirubin 12.1 H (0.2-1.0) mg/dl AST 41 H (13-39) U/L ALT 37 (7-52) U/L Alkaline Phosphatase 154 H (34-104) U/L Albumin 3.6 (3.4-5.0) gm/dl
--- NOTE | 2023-12-11 12:56 | Gastrointestinal Consultation ---
Date of Consultation December 11, 2023 Assessment & Plan (1) Cirrhosis: Most likely cardiac hepatopathy that has progressed to cirrhosis. Portal and hepatic vein dilation very suggestive of cardiac/Pulm HTN origin. DDX includes autoimmune liver disease There is no evidence of hepatic encephalopathy. (2) Primary pulmonary hypertension: (3) Hyperbilirubinemia: (4) Right heart failure due to pulmonary hypertension: Plan MRCP to verify no PSC or other bile duct obstruction. Due to CHF/pulm HTN severity she is high risk for sedation. Tx of cirrhosis is targeted at optimizing management of cardiac/pulmonary HTN. Continue OP Hepatology f/u. I will message Dr. Dorado's schedulers to arrange f/u. GI will sign off. Please recall if questions. Supervising Physician Co-Signing Physician Notes Attg add: Pt with pulm HTN, imaging evidence of portal HTN and congestive hepatopathy. Labs show marked indrect hyperbilirubinemia. She does not have clinical evidence of HE on exam, no ascites, and no evidence of GIB. Can follow as outpt for w/u of liver disease. She has a 1 cm lesion by uls, and should have dedicated liver imaging to r/o HCC. Etiology of her hyperbilirubinemia is unclear - possibly related to shunting? Request MRCP to r/o biliary obstruction; would ask hospitalist to r/o HCC. Outpt labs show poorly controlled celiac - urged compliance with gluten free diet. History of Present Illness Reason for Consultation: cirrhosis, hepatic encephalopathy Requesting Physician: Dr. Daniel Attending Physician: Tai Multani MD History of Present Illness Ms. Marianne Chand is a 63 yr old female pt of Dr. Sarah Galaviz w a hx of Celiac Dx, Right sided heart failure, pulmonary HTN who presented to the ED yesterday for SOB, dizziness and GI is consulted for liver cirrhosis w hepatic encephalopathy. A review of OP notes shows that she has had mildly elevated transaminases (highest 60's) and Alk Phos (highest 160's) since 2019, at that time w normal fibroscan, and mildly elevated GENI, ASMA. Total bili has been intermittently significant elevated as high as 10, but highest direct bili 0.8. She has been hesitant to undergo liver bx but it is scheduled by [facility] for February. OP MRI in September suggested cirrhosis. She does not have any clinical evidence of encephalopathy: no confusion, no asterixes. She denies having had any recent confusion and family is not aware of confusion or decreased mental capacities. On arrival, LFTs elevated: T Bili12, AST 41, ALT 37, Alk Phos 154. US also w cirrhosis. CTAP w cirrhosis, portal HTN w varices, trace ascites, small gallstones, moderate GB wall thickening. Head CT (-) Pt is awake, alert, oriented, appears jaundice, tells us she is mildly SOB/dizzy when tries to move around at home but otherwise feels well. Son, daughter in law who is a hospice WAREHOUSE CLERK for [employer] are in the room w the pt. They were unaware that she had seen hepatology previously for cirrhosis adn they have many questions which we did our best to answer. Allergies Allergy/AdvReac Type Severity Reaction Status Date / Time No Known Allergies Allergy Verified 08/05/23 22:23 Home Medications Medication Instructions Recorded Confirmed Type furosemide 20 mg tablet (Lasix) 20 mg PO QAM 08/09/20 12/10/23 History potassium chloride 20 mEq 20 meq PO QAM 08/09/20 12/10/23 History tablet,extended release sildenafil (pulm.hypertension) 20 20 mg PO TID 08/09/20 12/10/23 History mg tablet Patient History Medical History SOB (shortness of breath) on exertion Pulmonary hypertension F/U WITH PULM MEDICINE AT [facility]- DR CRUZ DUMONT AND DR CAREY (CARDIO [facility]) Tobacco abuse Thrombocytopenia Seen by [facility] heme - platelets and H&H stable per 03/20/20 office note Pulmonary nodules Anxiety Anemia Surgical History Nausea and vomiting after administration of anesthetic agent History of tubal ligation History of D&C Family History Mother Coronary heart disease CABG in 70s Alzheimer disease Father Coronary heart disease CABG in 70s Family history of diabetes mellitus Brother Family history of diabetes mellitus Other Hypertension Myocardial infarction Social History Smoking Status: Former smoker packs per day: 10; Second Hand Exposure: No; Do You Dip or Chew Tobacco: No; Hx Alcohol Use: No Hx Substance Use: No Preferred Language: Thai Communication Ability: Effective Asset Card Clerk Required: No Beliefs That Will Affect Care: None marital status: Current Living Situation: Spouse Current Living Situation Comment: spouse and dtr Feels Safe at Home: Yes Assistive Devices: None Review of Systems 2 Review of Systems: ROS: Gen: + weak, dizzy Eyes: + icterus; No eye redness, or pain, no recent vision changes Resp: + SOB Cardio: No palpitations/irregular beats, no chest pain GI: No abdominal pain, no nausea/vomiting : Denies pain on urination Skin: + jaundice, no itching or no new rashes A total of 12 systems were reviewed all others (-) Physical Exam 2 Constitutional: well developed, + ill appearing, cooperative and + overweight (mildly); no acute distress Eyes: PEARLA, + icterus ENMT: external ear and nose normal, oropharynx normal Neck: trachea midline, no thyromegaly Respiratory: normal respiratory effort, lungs clear to auscultation Cardiovascular: RRR, no murmur, no edema Gastrointestinal (Abdomen): normal bowel sounds, soft, nontender, no hepatosplenomegaly Skin: + jaundice Neurologic: PERRL, EOMI, accommodation nl, no face palsy, no dysarthria NO asterixes Psychiatric: A+Ox3, euthymic affect Lymphatic: no cervical or axillary lymphadenopathy Results & Data Vital Signs (Past 12 Hours) Vital Signs Temp Pulse Pulse Pulse Resp BP Pulse Ox 12/11/23 11:35 36.7 C 97 H 17 91/66 L 93 12/11/23 08:11 36.4 C L 100 H 16 99/74 L 92 12/11/23 04:03 36.4 C L 97 H 18 93/66 L 96 12/11/23 01:06 96 H O2 Del Method 12/11/23 11:35 Room Air 12/11/23 08:11 Room Air 12/11/23 04:03 Room Air 12/11/23 01:06 Laboratory Results T Bili 12, AST 41, ALT 37, ALk PHos 154. AMmonia 49 12/11/23 05:51 12/11/23 05:51 Diagnostic Findings CTAP w IV 3/27/24: 1. Cirrhotic liver with evidence of portal hypertension including moderate splenomegaly and varices formation. Trace fluid within the pelvis. Although not definitive, the CT findings raise the possibility of a cardiac etiology for cirrhosis. 2. Small gallstones within the gallbladder. Moderate gallbladder wall thickening without gallbladder distention. The gallbladder wall thickening is nonspecific although not highly suggestive of acute cholecystitis. This could be related to liver disease/portal hypertension. No biliary or pancreatic ductal dilatation. 3. Numerous subtle skeletal lesions. Although these may be metabolic, findings are suspicious for myeloma or metastatic disease. Oncology consultation is recommended. 4. Thickened endometrium. Nonemergent pelvic ultrasound correlation with postmenopausal bleeding is recommended. 5. Bilateral nephrolithiasis. No ureteral calculi. No hydronephrosis. Indeterminate 1.2 cm left lower pole renal lesion. 6. Mild fracture of the superior endplate of L4. This is age indeterminate but new since CT of August 05, 2023. Liver US 12/10/23: Cirrhotic liver. Hypoechoic lesion in the left hepatic lobe measuring 11 mm which is incompletely characterized. Consider MRI abdomen with and without contrast to evaluate for HCC.
--- NOTE | 2023-12-11 13:55 | Discharge Summary ---
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 Hx obtained from EPIC chart review and from the pt as well. States that she has always dealt with some degree of SOB but it has been worsening recently prompting her to come to the ED today. States that she was not aware that she had "severe" pulmonary hypertension or liver disease. Per chart review, she has not been compliant with medications and medical follow ups. Currently being worked up by PCP and following with many specialists including rheumatology for a positive GENI recently, pulmonology for her PAH, cardiology as well, and GI for her liver disease. has missed multiple attempts at a liver biopsy. Also following with Hematology for splenomegaly and pancytopenia hx. Today she states that she has not followed up with that as going under anesthesia for that scares her. She brings this up during the code status discussion about intubation noting that she is scared of "something being down her throat". She states that her current medications are the sildenafil, lasix and a potassium supplement. Notes occasional use of a multivitamin as well. States that we are scaring her with the descriptions of her disease. Case discussed with pulmonary and cardiology services at [facility] and they are recommending transfer to a tertiary care center for further evaluation. They advise that there is nothing they can offer here. Pulmonology advising of need for IV medications to help with the severe PAH such as IV prostacyclin. Admission Exam Per Admitting Provider General: Alert, oriented. No acute distress Skin: jaundiced Psych: Appropriate mood and affect Neuro: No gross deficits HEENT: NC/AT, scleral icterus present Chest: Nontender to palpation. CV: RRR Resp: Breath sounds clear bilaterally, no increased effort of breathing. Abdomen: Soft, nontender, nondistended. Extremities: No edema in lower extremities bilaterally. Principal Diagnosis Severe pulmonary artery HTN Right sided heart failure Cirrhosis of the Liver New onset seizure Possible myelodysplastic syndrome, multiple myeloma Possible hemolysis Hepatic lesion Possible metastatic disease Discharge Data Allergies Allergy/AdvReac Type Severity Reaction Status Date / Time No Known Allergies Allergy Verified 08/05/23 22:23 Consultations 12/10/23 12:48 ED Decision to Admit Stat 12/10/23 13:21 Consult Gastroenterology Routine 12/10/23 15:14 Consult Cardiology Routine 12/10/23 15:35 Consult Pulmonology Routine 12/11/23 12:18 Consult Neurology Routine Procedures Performed Laboratory Results WBC 6.16 K/ul (4.8-10.8) 12/11/23 05:51 RBC 3.07 M/uL (4.20-5.40) L 12/11/23 05:51 Hgb 7.8 g/dl (12.0-16.0) L 12/11/23 05:51 Hct 27.6 % (37.0-47.0) L 12/11/23 05:51 MCV 89.9 fL (80.0-100.0) 12/11/23 05:51 MCH 25.4 pg (25.0-34.0) 12/11/23 05:51 MCHC 28.3 g/dL (32.0-36.0) L 12/11/23 05:51 RDW Std Deviation 76.0 fL (36.4-46.3) H 12/11/23 05:51 RDW Coeff of Dalia 24.6 % (11.5-14.5) H 12/11/23 05:51 Plt Count 98 K/uL (130-400) L 12/11/23 05:51 Immature Gran % (Auto) 0.8 % 12/11/23 05:51 Neut % (Auto) 77.0 % 12/11/23 05:51 Lymph % (Auto) 17.0 % 12/11/23 05:51 Banks % (Auto) 4.7 % 12/11/23 05:51 Eos % (Auto) 0.2 % 12/11/23 05:51 Baso % (Auto) 0.3 % 12/11/23 05:51 Reticulocyte % (Auto) 4.14 % (0.50-2.00) H 12/10/23 10:45 Neut # (Auto) 4.74 K/uL (1.40-6.50) 12/11/23 05:51 Lymph # (Auto) 1.05 K/uL (1.20-3.40) L 12/11/23 05:51 Banks # (Auto) 0.29 K/uL (0.11-0.59) 12/11/23 05:51 Eos # (Auto) 0.01 K/uL (0.00-0.50) 12/11/23 05:51 Baso # (Auto) 0.02 K/uL (0.00-0.20) 12/11/23 05:51 Reticulocyte # 0.140 10^6/uL (0.020-0.100) H 12/10/23 10:45 Immature Gran # (Auto) 0.05 K/uL (0.01-0.20) 12/11/23 05:51 Absolute Nucleated RBC 0.11 K/uL (0.00-0.12) 12/11/23 05:51 Nucleated RBC % (auto) 1.8 % 12/11/23 05:51 Polychromasia 1+ 12/11/23 05:51 Anisocytosis Present 12/11/23 05:51 Tear Drop Cells 1+ 12/11/23 05:51 Ovalocytes 1+ 12/11/23 05:51 Peripher Smr Path Cons 12/10/23 10:45 Immature Retic Fraction 36.5 % (2.3-15.9) H 12/10/23 10:45 Retic Hgb Content 27.0 pg (28.2-36.6) L 12/10/23 10:45 PT 11.6 Seconds (9.0-12.0) 12/10/23 10:45 INR 1.1 (0.9-1.1) 12/10/23 10:45 APTT 31 Seconds (21-31) 12/10/23 10:45 PTT Ratio 1.1 12/10/23 10:45 D-Dimer 1120 ug/L FEU (0-500) H* 12/10/23 10:45 VBG pH 7.42 (7.36-7.41) H 12/10/23 11:16 VBG pCO2 29 mmHg (38-50) L 12/10/23 11:16 VBG pO2 27 mmHg 12/10/23 11:16 VBG HCO3 19 mmol/L 12/10/23 11:16 VBG O2 Saturation < 60.0 % 12/10/23 11:16 VBG Base Excess -5.0 mEq/L 12/10/23 11:16 Sodium 136 mmol/L (136-145) 12/11/23 05:51 Potassium 4.7 mmol/L (3.5-5.1) D 12/11/23 05:51 Chloride 106 mmol/L (98-107) 12/11/23 05:51 Carbon Dioxide 20 mmol/L (21-32) L 12/11/23 05:51 Anion Gap 10 (3-11) 12/11/23 05:51 BUN 19 mg/dl (6-23) 12/11/23 05:51 Creatinine 1.39 mg/dl (0.6-1.2) H 12/11/23 05:51 Est Cr Clr Drug Dosing 42.3 ml/min 12/11/23 05:51 Est GFR ( Amer) 47.3 ml/min 12/11/23 05:51 Est GFR (Non-Af Amer) 40.8 ml/min 12/11/23 05:51 BUN/Creatinine Ratio 13.7 (10-20) 12/11/23 05:51 Glucose 147 mg/dl (70-99(Fasting)) H 12/11/23 05:51 POC Glucose 117 mg/dl (70-99) H 12/10/23 20:34 Estimat Average Glucose 85 mg/dl 12/11/23 05:51 Hemoglobin A1c 4.6 % (4.5-5.6) 12/11/23 05:51 Lactate 3.1 mmol/L (0.4-2.0) H* 12/10/23 20:16 Calcium 9.3 mg/dl (8.6-10.3) 12/11/23 05:51 Phosphorus 5.3 mg/dl (2.5-4.9) H 12/11/23 05:51 Magnesium 2.3 mg/dl (1.7-2.4) 12/11/23 05:51 Iron 474 mcg/dl (35-150) H 12/11/23 05:51 TIBC TNP 12/11/23 05:51 Unsaturated IBC < 55 mcg/dl (155-355) L 12/11/23 05:51 Transferrin 266 mg/dl (200-360) 12/10/23 15:24 Transferrin % Sat TNP 12/11/23 05:51 Ferritin 365.6 ng/ml (8-388) 12/11/23 05:51 Total Bilirubin 12.1 mg/dl (0.2-1.0) H 12/11/23 05:51 Direct Bilirubin 1.2 mg/dl (0-0.2) H 12/10/23 10:45 AST 41 U/L (13-39) H 12/11/23 05:51 ALT 37 U/L (7-52) 12/11/23 05:51 Alkaline Phosphatase 154 U/L (34-104) H 12/11/23 05:51 Ammonia 49.0 umol/L (18-72) 12/11/23 05:54 Lactate Dehydrogenase 223 U/L (86-244) 12/10/23 15:24 Troponin I High Sens 34.2 pg/ml (0-14) H 12/10/23 12:53 B-Natriuretic Peptide 2138 pg/ml (0-100) H 12/10/23 12:53 Total Protein 6.8 gm/dl (6.0-8.3) 12/11/23 05:51 Albumin 3.6 gm/dl (3.4-5.0) 12/11/23 05:51 Globulin 3.2 gm/dl (2.5-4.0) 12/11/23 05:51 Albumin/Globulin Ratio 1.1 (0.9-2) 12/11/23 05:51 Vitamin B12 443 pg/ml (180-914) 12/10/23 15:24 Folate 21.45 ng/ml (>5.38) 12/10/23 15:24 Procalcitonin 0.11 ng/ml (0-0.5) 12/10/23 12:53 Salicylates < 3.0 mg/dl (3.0-30) L 12/10/23 17:30 Acetaminophen 4 ug/ml (10-30) L 12/10/23 17:30 Adenovirus (PCR) Not Detected (NotDetected) 12/10/23 14:05 B. pertussis DNA (PCR) Not Detected (NotDetected) 12/10/23 14:05 B.parapertussis DNA PCR Not Detected (NotDetected) 12/10/23 14:05 C. pneumoniae DNA (PCR) Not Detected (NotDetected) 12/10/23 14:05 Coronavirus OC43 (PCR) Not Detected (NotDetected) 12/10/23 14:05 Coronavirus HKU1 (PCR) Not Detected (NotDetected) 12/10/23 14:05 Coronavirus 229E (PCR) Not Detected (NotDetected) 12/10/23 14:05 SARS-CoV-2 (PCR) Not Detected (NotDetected) 12/10/23 14:05 Coronavirus NL63 (PCR) Not Detected (NotDetected) 12/10/23 14:05 Human Metapneumovir PCR Not Detected (NotDetected) 12/10/23 14:05 Influenza Type A (PCR) Not Detected (NotDetected) 12/10/23 14:05 Influenza Type B (PCR) Not Detected (NotDetected) 12/10/23 14:05 M. pneumoniae (PCR) Not Detected (NotDetected) 12/10/23 14:05 Parainfluenza 1 (PCR) Not Detected (NotDetected) 12/10/23 14:05 Parainfluenza 2 (PCR) Not Detected (NotDetected) 12/10/23 14:05 Parainfluenza 3 (PCR) Not Detected (NotDetected) 12/10/23 14:05 Parainfluenza 4 (PCR) Not Detected (NotDetected) 12/10/23 14:05 RSV (PCR) Not Detected (NotDetected) 12/10/23 14:05 Entero/Rhino (PCR) Not Detected (NotDetected) 12/10/23 14:05 Impressions Chest X-Ray 12/10/23 10:15 XR chest 1V portable CLINICAL HISTORY: Chest pain, nonspecific COMPARISON STUDY: Chest radiograph September 19, 2020. Chest CT May 27, 2019. FINDINGS: There is no pneumothorax or pleural effusion. Pulmonary vascularity is normal. There is no consolidation. Moderate cardiomegaly is noted. Bilateral hilar prominence is likely due to dilated central pulmonary arteries. IMPRESSION: 1. No acute cardiopulmonary findings. 2. Cardiomegaly. 3. Dilated central pulmonary arteries. This raises the possibility of pulmonary arterial hypertension. ACT 112: Negative or not required by law. Electronically signed by: Que Hutchinson M.D. 12/10/2023 11:00 AM Abdomen/Pelvis CT 12/10/23 11:00 CT OF THE ABDOMEN AND PELVIS WITH CONTRAST CLINICAL HISTORY: Jaundice. COMPARISON STUDY: CT of the abdomen and pelvis August 05, 2023. TECHNIQUE: Following IV administration of 111 mL of Optiray, axial images of the abdomen and pelvis were obtained from the lung bases to the proximal femurs. Images were reviewed in the axial, sagittal, and coronal planes. IV contrast was administered without complication. Automated exposure control was utilized for the study. A dose lowering technique was utilized adhering to the principles of ALARA. CT DOSE: 2962.71 mGy.cm FINDINGS: Please note that the chest CT will be reported separately. Cardiomegaly, dilated right heart chambers and dilated central pulmonary arteries are better depicted on that exam. No pneumatosis, free air or portal venous gas is present. The IVC and hepatic veins are dilated. Nodularity of the liver surface is noted. Multiple subcentimeter hypodense hepatic lesions favor cysts. Sensitivity for detection of hypervascular liver lesions is diminished on this exam. The main, left and right portal veins are somewhat diminutive but patent. The adrenal glands and pancreas are unremarkable. There is no biliary or pancreatic ductal dilatation. Spleen is moderately enlarged. There is moderate gallbladder wall thickening. There are tiny gallstones within the gallbladder. The gallbladder is not distended. Periportal edema is noted. Hepatic arteries are prominent. Retroperitoneal collaterals are present. There is trace fluid within the pelvis. There is no evidence for a bowel obstruction. The appendix is normal. Water attenuation renal lesions reflect cysts. There is an indeterminate 1.2 cm lesion arising from the lower pole the left kidney which measures above water attenuation. This could reflect a complex cyst or small solid renal lesion. Bilateral renal calculi measure up to 5 mm. There are no ureteral calculi. There is no hydronephrosis. The endometrium appears thickened, measuring approximately 1.6 cm in thickness. There is no lymphadenopathy. Subtle small skeletal lesions are noted. These are most evident within the sacrum. A mild fracture of the superior endplate of L4 is new since CT of August 05, 2023. IMPRESSION: 1. Cirrhotic liver with evidence of portal hypertension including moderate splenomegaly and varices formation. Trace fluid within the pelvis. Although not definitive, the CT findings raise the possibility of a cardiac etiology for cirrhosis. 2. Small gallstones within the gallbladder. Moderate gallbladder wall thickening without gallbladder distention. The gallbladder wall thickening is nonspecific although not highly suggestive of acute cholecystitis. This could be related to liver disease/portal hypertension. No biliary or pancreatic ductal dilatation. 3. Numerous subtle skeletal lesions. Although these may be metabolic, findings are suspicious for myeloma or metastatic disease. Oncology consultation is recommended. 4. Thickened endometrium. Nonemergent pelvic ultrasound correlation with postmenopausal bleeding is recommended. 5. Bilateral nephrolithiasis. No ureteral calculi. No hydronephrosis. Indeterminate 1.2 cm left lower pole renal lesion. 6. Mild fracture of the superior endplate of L4. This is age indeterminate but new since CT of August 05, 2023. ACT 112: Positive. There are findings on this exam that require communication between the performing entity and the patient following Patient Test Result Information Act ([place] Act 112) guidelines. Electronically signed by: Que Hutchinson M.D. 12/10/2023 12:25 PM Chest CTA 12/10/23 11:00 CT ANGIOGRAM OF THE CHEST CLINICAL HISTORY: Change in mental status. Jaundice. COMPARISON STUDY: Chest CT dated 05/27/2019. Chest x-ray dated 12/10/2023. TECHNIQUE: Following the IV administration of 111 cc of Optiray 350, CT angiogram of the chest was performed from the upper abdomen to the thoracic inlet utilizing the pulmonary embolus protocol. Images are reviewed in the axial, sagittal, and coronal planes. 3-D MIPS images are created and assessed. IV contrast was administered without complication. A dose lowering technique was utilized adhering to the principles of ALARA. FINDINGS: Thyroid: Imaged portions of the thyroid gland are normal in size and attenuation. Thoracic aorta: The thoracic aorta is normal in caliber and demonstrates standard 3-vessel arch anatomy. The thoracic aorta is not well-opacified. Pulmonary vasculature: The pulmonary trunk is markedly dilated, measuring 4.2 cm diameter. This indicates pulmonary artery hypertension. There are no filling defects identified in main, lobar, or segmental pulmonary branches to suggest pulmonary embolus. Heart: The heart is markedly enlarged and without pericardial effusion. The coronary arteries are densely calcified. Lungs and pleural spaces: There is no airspace consolidation or pleural effusion. The trachea and central airways are clear. Scattered calcified granulomas are observed. Foci of scarring/atelectasis are noted throughout both lungs. Mediastinum: There is no mediastinal lymphadenopathy. Gladys: Clear. Axillae: There is no axillary lymphadenopathy. Upper abdomen: A small hiatal hernia is noted. The liver is cirrhotic in morphology and heterogeneous attenuation with nodularity of the surface contour. The spleen is enlarged. Foci of cortical scarring are seen in the upper pole of the left kidney. Nonobstructive calculi in the upper pole of both kidneys measure up to 6 mm. There are calcified gallstones. Pericholecystic infiltration is nonspecific and may be related to portal hypertension/adjacent hepatocellular disease. Skeletal structures: The skeletal structures are heterogeneously osteopenic. Subtle sclerotic foci/lesions are seen throughout the bony structures, most apparent in the sternum. IMPRESSION: 1. There is no evidence of pulmonary embolus in the main, lobar, or segmental pulmonary arteries. 2. Marked cardiomegaly with evidence of pulmonary artery hypertension. 3. There is no airspace consolidation or pleural effusion. 4. Cirrhotic liver morphology and splenomegaly. See report of abdominal CT performed concurrently for detailed intra-abdominal findings. 5. Subtle sclerotic foci are seen throughout the visualized bony structures. These are nonspecific, and although this could potentially be on a metabolic basis, bony metastatic disease is not excluded. Correlate for any oncological history. 6. Additional findings as above. ACT 112: Negative or not required by law. Electronically signed by: Caden Mueller M.D. 12/10/2023 12:26 PM Liver Ultrasound 12/10/23 15:10 Exam(s): US LIVER EXAM: US Abdomen Limited, Right Upper Quadrant CLINICAL HISTORY: Reason for exam: cirrhosis, gallbladder f/u. TECHNIQUE: Real-time ultrasound of the right upper quadrant with image documentation. COMPARISON: CT 12/10/2023 FINDINGS: Liver: Heterogeneous appearance of the liver. Nodular contour. Liver measures 15 cm. Hypoechoic area in the left hepatic lobe measuring 11 x 8 x 10 mm. There is a small simple cyst in the right hepatic lobe measuring 9 x 9 x 10 mm. No suspicious lesion identified. The portal vein was not imaged. Gallbladder: No cholelithiasis. Mucosal thickening in the gallbladder likely reactive to the liver measuring up to 4 mm. Negative Copeland's. Common bile duct: CBD nondilated measuring 4 mm. Pancreas: Unremarkable as visualized. Right kidney: Unremarkable. No hydronephrosis. IMPRESSION: Cirrhotic liver. Hypoechoic lesion in the left hepatic lobe measuring 11 mm which is incompletely characterized. Consider MRI abdomen with and without contrast to evaluate for HCC. Electronically signed by: Antwon Esteves MD 12/10/23 20:12 PM Lumbar Spine MRI 12/10/23 15:10 Exam(s): MRI L SPINE W/WO Contrast IV Amt: 8CC GADAVIST EXAM: MR Lumbar Spine Without and With Intravenous Contrast CLINICAL HISTORY: Reason for exam: lytic lesions, fracture on abd/pelvis CT. TECHNIQUE: Magnetic resonance images of the lumbar spine without and with intravenous contrast in multiple planes. CONTRAST: Patient received 8CC GADAVIST of IV contrast COMPARISON: CT abdomen pelvis 12/10/2023 FINDINGS: Extensive marrow heterogeneity. With associated enhancement on the postcontrast imaging. There is a superior endplate compression deformity at L4 without posterior cortical retropulsion. Remainder of the vertebral body heights are preserved. Note significant disc disease. Normal appearance of the distal cord. No epidural collection. No spinal canal or foraminal stenosis. IMPRESSION: 1. Extensive heterogeneous marrow with associated enhancement. Differential is broad and includes metastatic disease, myeloma, leukemia, other myelodysplastic processes, and less likely metabolic disease. Consider bone scan and/or marrow biopsy for further evaluation. 2. Acute superior endplate compression deformity at L4. Electronically signed by: Antwon Esteves MD 12/10/23 23:[address] 12/11/23 08:[address] DOSE: 1250.21 mGy.cm HISTORY: Seizure TECHNIQUE: Multiaxial CT images of the head were performed without the use of intravenous contrast. Automated exposure control was utilized for this study. A dose lowering technique was utilized adhering to the principles of ALARA. Comparison: Head CT 12/10/2023. Findings: The paranasal sinuses and mastoid air cells are clear. The calvarium and skull base are intact. The ventricles and sulci are within normal limits. T here is no mass, hematoma, midline shift, or acute infarct. Impression: No acute intracranial abnormality. ACT 112: Negative or not required by law. Electronically signed by: Chevy Jason M.D. 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 Acute hypoxic respiratory Failure Dyspnea on Exertion Secondary to right-sided heart failure due to significant pulmonary hypertension--NYHC III-IV --CTA:There is no evidence of pulmonary embolus in the main, lobar, or segmental pulmonary arteries. Marked cardiomegaly with evidence of pulmonary artery hypertension. There is no airspace consolidation or pleural effusion. Cirrhotic liver morphology and splenomegaly. See report of abdominal CT performed concurrently for detailed intra-abdominal findings. Subtle sclerotic foci are seen throughout the visualized bony structures. These are nonspecific, and although this could potentially be on a metabolic basis, bony metastatic disease is not excluded. Correlate for any oncological history. --ECHO: Left ventricle cavity is small. Borderline concentric LVH. Left ventricle is hyperdynamic. Left ventricle wall motion is normal. EF 65 to 70%. Flattened septum is consistent with right pressure/volume overload. Right ventricle is severely dilated. Right ventricular systolic function is moderately reduced. Severe tricuspid regurgitation. Right ventricle systolic pressure is severely elevated, estimated at > 100 mmHg. When compared to prior echo in 2020, tricuspid insufficiency increased and pulmonary pressures have elevated further. --Biofire: Negative --Currently saturating low 90s on room air -Supplemental oxygen as needed Resume home diuretics as able -- Continue on sildenafil. Patient will require IV prostacyclin. Appreciate pulmonology input Given complex patient's condition, patient will be transferred to tertiary care hospital for further management As per prior provider: Right Heart failure in the setting of Pulmonary Hypertension Known Hx of pulmonary HTN, noncompliant with full treatment for PAH due to cost. States currently only taking her sildenafil 20mg TID and home Lasix 20mg daily with KCl supplementation Was previously prescribed ambrisentan 10mg daily but was not taking it due to cost Follows with [facility] pulmonology Had right sided heart cath in 2019, was lost to follow up for some time BNP of 2137 Echo noting worsening PAH and right sided heart failure, tricuspid regurg Chest CTA noting "marked cardiomegaly with evidence of pulmonary artery hypertension" Cardiology consulted for right sided heart failure recs in this setting -recommending transfer to tertiary care center Pulmonology consulted for PAH -recommending transfer to tertiary care center for IV prostacyclin. Notes use of the ambrisentan pt previously stopped taking CI in setting of cirrhosis Continue with home sildenafil, lasix and KCl regimen Pt accepted for transfer and further care at [facility]. New onset seizure CT head:No acute intracranial abnormality. MRI brain pending Received loading dose of Keppra Neurology consulted Seizure precautions Cirrhosis Congestive Hepatopathy Hyperbilirubinemia--elevated indirect bilirubin --CT ABD:Cirrhotic liver with evidence of portal hypertension including moderate splenomegaly and varices formation. Trace fluid within the pelvis. Although not definitive, the CT findings raise the possibility of a cardiac etiology for cirrhosis. . Small gallstones within the gallbladder. Moderate gallbladder wall thickening without gallbladder distention. The gallbladder wall thickening is nonspecific although not highly suggestive of acute cholecystitis. This could be related to liver disease/portal hypertension. No biliary or pancreatic ductal dilatation. Numerous subtle skeletal lesions. Although these may be metabolic, findings are suspicious for myeloma or metastatic disease. Oncology consultation is recommended. Thickened endometrium. Nonemergent pelvic ultrasound correlation with postmenopausal bleeding is recommended. Bilateral nephrolithiasis. No ureteral calculi. No hydronephrosis. Indeterminate 1.2 cm left lower pole renal lesion. Mild fracture of the superior endplate of L4. This is age indeterminate but new since CT of August 05, 2023. --Pt has been scheduled to have a liver biopsy multiple times over the last 4 years. --GI consulted -- Peripheral smear as below --Haptoglobin level pending --Reticulocyte hemoglobin content 27 --Immature reticulocyte fraction 36% -- Avoid nephrotoxic agents as able --Monitor LFTs Hepatic Encephalopathy Pt came in confused to the ED Ammonia level normal CT head as above MRI brain pending --Salicylate level, acetaminophen level normal --Urine drug screen pending Mentation seems to be back to baseline Currently oriented x 3 Possible metastatic Disease Lumbar fracture as above Noted on CT abd/pelvis lytic lesions Pt with noted chronic hx of back pain -MRI lumbar spine:Extensive heterogeneous marrow with associated enhancement. Differential is broad and includes metastatic disease, myeloma, leukemia, other myelodysplastic processes, and less likely metabolic disease. Consider bone scan and/or marrow biopsy for further evaluation. Acute superior endplate compression deformity at L4. -- Peripheral smear: There is no significant platelet clumping or satellitosis.The peripheral smear is remarkable for a normocytic anemia and thrombocytopenia. The red cells are atypical in appearance with a dimorphic look. This is frequently seen with recent blood transfusions (though none is noted in the patient's file) but can also be seen with myelodysplastic changes. There is some dysplasia seen in the nucleated reds and given the recent spine imaging a bone marrow biopsy is recommended for further evaluation. Some mild rouleaux is also present and a marrow biopsy could also evaluate for myeloma. Given the scattered schistocytes and spherocytes, work-up to exclude a component of hemolysis is recommended. Please correlate clinically. -- SPEP, UPEP ordered Iron Def Anemia Follows with hematology usually gets iron infusions Splenomegaly Thrombocytopenia Follows with hematology outpt Hepatic Lesion Gallstones Calcified gallstones noted on CT CT abd/pelvis as above --Liver USD:Cirrhotic liver. Hypoechoic lesion in the left hepatic lobe measuring 11 mm which is incompletely characterized. Consider MRI abdomen with and without contrast to evaluate for HCC. -- GI consulted Further workup as per GI Demand ischemia Trops slightly elevated at 35.2 to 34.2 EKG NSR with R atrial enlargement and right ventricular hypertrophy noted Likely demand in setting above, doubt ACS Elevated D Dimer D dimer elavted at 1120 Chest CTA noting no PE Thickened Endometrium Noted on CT abd/pelvis Nonemergent pelvis US recommended DVT Px: SCDs Re: Thrombocytopenia, seizure CODE STATUS: Full Code Total Time Total Time Spent Total Time Spent (In Minutes): 68 minutes Discharge Plan Discharge Items Patient Disposition: Transfer Acute Care Hospital Reason For Visit: SHORTNESS OF BREATH Discharge Diagnosis: Severe pulmonary artery HTN Right sided heart failure Cirrhosis of the Liver New onset seizure Possible myelodysplastic syndrome, multiple myeloma Possible hemolysis Hepatic lesion Possible metastatic disease Activity: Per Instructions section Exercise/Sports: Wait until after follow-up appointment Non-emergency contact: Primary Care Provider, Costumer Assistant, Core Assembly Supervisor, Neurologist and Shed Boss Call non-emergency contact if: you have any medication questions and your symptoms worsen Follow-up/Referrals: Sarah Galaviz DO [Primary Care Provider] - Diet: Heart Healthy and Low Sodium (2gm) Addtl Attending Provider Instructions: Follow-up with your physician at [facility] for further management Seek immediate medical attention if your symptoms reoccur or worsen Please take all medications as instructed on discharge list below. Please call if you have any questions or problems. You can reach a [facility] hospitalist on duty at [facility] 24 hours a day by calling [phone] [facility] Provider Instructions: Current Inpatient Medications Furosemide (Furosemide 20 Mg Tab) 20 mg PO QAM [facility] Stop: 01/10/24 08:59 Lorazepam 2 mg/ Syringe 2 mls @ 2 mls/min IV Q2HWA PRN PRN Reason: seizure Stop: 01/10/24 08:47 Pantoprazole Sodium 40 mg/ (Syringe) 10 mls @ 5 mls/min IV DAILY GEOFF Stop: 01/10/24 09:59 Last Admin: 12/11/23 10:21 Dose: 5 mls/min Ondansetron HCl (Ondansetron Inj 2 Mg/Ml 2 Ml Vial) 4 mg IV Q4H PRN PRN Reason: Nausea And Vomiting Stop: 01/09/24 19:46 Oxycodone HCl (Oxycodone Hcl Ir 5 Mg Tab (Immediate Release)) 5 mg PO Q6H PRN PRN Reason: Pain Stop: 12/24/23 19:46 Last Admin: 12/10/23 23:49 Dose: 5 mg Potassium Chloride (Potassium Chloride Crtab 20 Meq Tabcr) 20 meq PO QAM GEOFF Stop: 01/10/24 08:59 Last Admin: 12/11/23 08:16 Dose: 20 meq Sildenafil Citrate (Sildenafil Citrate 20 Mg Tablet) 20 mg PO TID [facility] Stop: 01/09/24 20:59 Last Admin: 12/11/23 08:16 Dose: 20 mg Pending Studies at Discharge: No Stand-Alone Forms: My [facility] Skilled Items Patient informed of condition?: Yes DNR: No Discharge Level of Care: Other Communicable Disease: No Discharge Prognosis: Stable Lines: Peripheral IV Urinary Catheter: No Medications and DC Order Prescriptions: Continued furosemide [Lasix] 20 mg Tablet 20 mg PO QAM sildenafil (pulm.hypertension) 20 mg Tablet 20 mg PO TID potassium chloride 20 mEq Tablet Extended Release 20 meq PO QAM Discharge Orders: Discharge Order (Routine); Ordered 12/11/23 Ordered By: Tai Multani Admission Data Admit Date/Time: 12/10/23 14:04 Attending Provider: Tai Multani Admit Provider: Sandy Daniel Primary Care Provider: Sarah Galaviz Other Providers: Hung Carey; Edilson Duval; Sandy Daniel; Frances Quiroz; Tiera Puckett; Carlos Rivera; Tiera Loera; Victorino Candelaria; Efren Arellano; Niko Dorantes; Sarwat Ocampo; Olga Lidia Pedroza; Alberto Macario; Maged Perez; Carmine Carvajal; Alejandro Willams; Nadia Ames; Hailey Nguyen; Sarwat Chong
[2023-12-11 14:51] LABS: Appearance Urine Clear (Clear); Bacteria Urine Automated 1+ (Negative); Bilirubin Urine Negative (Negative); Blood Urine Trace (Negative); Color Urine Dark Yellow; Epithelial Cell Urine Auto >30 /lpf (0-5); Glucose Urine UA Negative (Negative); Ketones Urine Trace (Negative); Leukocyte Esterase Urine Negative (Negative); Nitrite Urine Negative (Negative); Protein Urine 1+ (Negative); Specific Gravity Urine > 1.045 (1.000-1.030); Urobilinogen Urine Negative (Negative); pH Urine 5.5 (4.5-7.5)
[2023-12-11 15:11] LABS: RBC Urine Automated 0-4 /hpf (0-4)
[2023-12-11 15:42] LABS: Amphetamines+Metham, Urine Neg (Neg); Barbiturates, Urine Neg (Neg); Benzodiazepine, Urine Neg (Neg); Cocaine, Urine Neg (Neg); MDMA (Ecstacy), Urine Neg (Neg); Marijuana, Urine Neg (Neg); Methadone, Urine Neg (Neg); Opiate, Urine Neg (Neg); Phencyclidine, Urine Neg (Neg)
[2023-12-11] MEDS: KETOROLAC TROMETHAMINE 15 MG/ML VIAL IV ONE (20:02)
[2023-12-11] MEDS: SODIUM CHLORIDE 0.9% 500 ML IV SCH ×2 (20:03→21:59)
[2023-12-15 07:48] LABS: Albumin 3.3 g/dL (3.8-4.8); Alpha 1 Globulin 0.4 g/dL (0.2-0.3); Alpha 2 Globulin 0.4 g/dL (0.5-0.9); Beta-1-Globulin 0.4 g/dL (0.4-0.6); Beta-2-Globulin 0.4 g/dL (0.2-0.5); Gamma Globulin 1.5 g/dL (0.8-1.7); Monoclonal Protein Band 1 DNR g/dL (NONE DETECTED); Monoclonal Protein Band 2 DNR g/dL (NONE DETECTED); Monoclonal Protein Band 3 DNR g/dL (NONE DETECTED); Total Protein 6.3 g/dL (6.1-8.1)
[2023-12-16 06:37] LABS: Creatinine Ur 135 mg/dL (20-275); Protein, Urine Random 27 mg/dL (5-24); Ur Protein/Creat Ratio mg/g 200 mg/g creat (24-184); Urine Abnormal Protein Band 1 DNR mg/dL (NONE DETECTED); Urine Abnormal Protein Band 2 DNR mg/dL (NONE DETECTED); Urine Abnormal Protein Band 3 DNR mg/dL (NONE DETECTED)
== END 2023-12-12 00:46 | disposition short-term general hospital (02) | DRG 314 ==
LOC: ED 10:05 → 4W 14:04 → SUATTDRO 14:04 → 4W 15:32

== ENCOUNTER 2025-03-17 19:17 | Inpatient (IN) ==
[2025-03-17 20:03] LABS: Hematocrit (blood only) 16.9 % (37.0-47.0); Hemoglobin 5.0 g/dl (12.0-16.0); Mean Corpuscular Hemoglobin 30.1 pg (25.0-34.0); Mean Corpuscular Volume 101.8 fL (80.0-100.0); Platelet Count 58 K/uL (130-400); RDW Standard Deviation 98.1 fL (36.4-46.3); Red Blood Count 1.66 M/uL (4.20-5.40); White Blood Count 2.89 K/ul (4.8-10.8)
[2025-03-17] MEDS ORDERED: SODIUM CHLORIDE 0.9% 100 ML IV PRN (20:14)
--- NOTE | 2025-03-17 20:18 | Emergency Department Note ---
Impression & Plan Acute blood loss anemia, Thrombocytopenia, Gastrointestinal hemorrhage, unspecified, Chronic liver disease ED Provider Note NAME: TANA ALCALA AGE: 64 SEX: Female INFORMANT: Patient ED PROVIDER(S): Carlos Leigh MD CHIEF COMPLAINT: Vomiting blood PLAN: Disposition: Admitted Outpatient prescription management: none Referral: None MEDICAL DECISION MAKING: Patient presented because of vomiting blood. Workup was initiated. She was found to be severely anemic. Patient had consent done for blood transfusion. She was ordered for 2 units. She was started on Protonix and Pepcid. Did consult with gastroenterology, . Recommended empiric octreotide and he will see her after admission. CT scan of the abdomen pelvis was performed. Consultation was made with critical care, José Gibbons SERVICE DIRECTOR he evaluated the patient in the ER. Consultation was made with the [facility] hospitalist service, Dr. Arce. Patient was evaluated in the ER and admitted for further management Care/management discussed with: costing manager, gastroenterology, hospitalist, critical care Level of care consideration(s): After review of the information above and other included data, I feel the patient requires escalation of care to admission Triage Nursing notes: reviewed and agree them. Vital Signs: reviewed and remarkable for no significant abnormalities Additional History obtained from: none Chronic Medical/Social Conditions affecting care: Liver disease Prior/ Outside/ External records reviewed: Did obtain outside records from December [place] admission and reviewed. Patient treated for GI bleed. Differential Diagnosis: Diverticulosis, AVM, coagulopathy, colitis, inflammatory bowel disease, malignancy, Yue-Long tear, esophagitis, peptic ulcer disease, variceal bleed, gastritis, epistaxis, fissure, hemorrhoids, as well as other pathologies. Diagnostics, independently interpreted by me: ECG: Twelve-lead ECG reveals a normal sinus rhythm nonspecific ST at 99 bpm. Cardiac Monitoring: Cardiac monitoring ordered by me: The patient was placed on continuous cardiac monitoring and observed. It revealed a normal sinus rhythm at 68 beats per minute without ectopy or evidence of dysrhythmia. Medical decision rules: none Imaging studies: CT angiography scan of the abdomen pelvis with contrast did not reveal any evidence of active extravasation. HPI: 64 year old Female arrives for evaluation of vomiting blood. This started today and is a recurrent problem. Happened december 2024. Admitted to [place] at that time. Did get a transfusion and EGD that she states was normal. The patient also notes the following associated symptoms, melena x 2days, weakness, AGUILAR. The patient has found no relieving factors. Current pain is rated as 0/10. Pt denies LOC, headache, fevers, chills, diaphoresis, visual changes, neck pain, chest pain, abdominal pain, back pain, , hematochezia, urinary symptoms, numbness, lymphadenopathy, rash, or other complaints. PAST MEDICAL HISTORY: See Below, Severe pulmonary artery HTN Right sided heart failure Cirrhosis of the Liver seizure Possible myelodysplastic syndrome, multiple myeloma Hepatic lesion PAST SURGICAL HISTORY: See Below, EGD SOCIAL HISTORY: See Below, non smoker, no alcohol HOME MEDICATIONS: See Below ALLERGIES: See Below VITALS: See Below PHYSICAL EXAMINATION: GENERAL: Awake, alert, tired-appearing, in no distress HENT: Normocephalic, atraumatic. Oropharynx unremarkable. EYES: Pale conjunctiva. Sclera mildly-icteric. NECK: Inspection normal. Non-tender. Supple. No nuchal rigidity. FROM. No masses. RESPIRATORY: Clear to auscultation. No wheezes. No rales. Normal respiratory effort. CARDIAC: Normal rate. Normal rhythm. No murmurs. No rubs. Extremities warm and well perfused. Pulses equal. No JVD. GI: Soft, non-distended. No tenderness to palpation. No rebound or guarding. No masses. RECTAL: Deferred. MUSCULOSKELETAL: Atraumatic. Chest examination reveals no tenderness. The back is symmetrical on inspection without obvious abnormality. There is no CVA tenderness to palpation. No joint edema. LOWER EXTREMITIES: Calves are equal size bilaterally and non-tender. 1+ edema. No discoloration. NEURO: Normal sensorium. No sensory or motor deficits noted. SKIN: No rash or jaundice noted. PROCEDURES: none CRITICAL CARE: I have personally spent 40 minutes of critical care time in the direct management of this patient. This includes bedside care, interpretation of diagnostic studies, and testing, discussion with consultants, patient, and family members, and other required patient management activities. These minutes are in excess of all separately billable procedures. OBSERVATION NOTE: none Past Med/Surg History Problem List (Updated 03/18/25 @ 15:54 by Carlos Leigh MD) Chronic liver disease (Acute) Gastrointestinal hemorrhage, unspecified (Acute) Acute blood loss anemia (Acute) Hyperbilirubinemia Thrombocytopenia (Acute) Seen by [facility] heme - platelets and H&H stable per 03/20/20 office note Primary pulmonary hypertension Medical History (Updated 03/18/25 @ 15:54 by Carlos Leigh MD) Anxiety URI, acute Abnormal ECG SOB (shortness of breath) on exertion Elevated troponin I level Abnormal EKG Chest pain COVID-19 Encounter for pre-operative examination Cough Vertigo Pneumonia Tobacco abuse Pulmonary nodules Anemia Elevated bilirubin Right heart failure due to pulmonary hypertension Cirrhosis Pulmonary hypertension F/U WITH PULM MEDICINE AT [facility]- DR CRUZ DUMONT AND DR CAREY (CARDIO [facility]) Surgical History (Updated 03/17/25 @ 22:12 by WINSTON Gr) History of tubal ligation History of D&C Nausea and vomiting after administration of anesthetic agent Family History Mother Coronary heart disease CABG in 70s Alzheimer disease Father Coronary heart disease CABG in 70s Family history of diabetes mellitus Brother Family history of diabetes mellitus Other Hypertension Myocardial infarction Social History Smoking Status: Never smoker packs per day: 10; Second Hand Exposure: No; Do You Dip or Chew Tobacco: No; Tobacco Cessation Education Requested by Patient: No Hx Alcohol Use: No Hx Substance Use: No Preferred Language: [place] Communication Ability: Effective Clinical Care Manager Required: No Beliefs That Will Affect Care: None marital status: Current Living Situation: Family Current Living Situation Comment: Lives with daughter Other Information That Helps Us Care for You: No Feels Safe at Home: Yes Safety Concerns: Feels Safe At This Time Assistive Devices: None Allergies Allergies Allergy/AdvReac Type Severity Reaction Status Date / Time gluten Allergy Unknown Uncoded 03/18/25 08:30 Home Meds Home Medications Medication Instructions Recorded Confirmed atorvastatin 20 mg tablet 20 mg PO DAILY 03/17/25 03/17/25 furosemide 40 mg tablet 40 mg PO DAILY 03/17/25 03/17/25 iron,carbonyl 65 mg-vitamin C 125 1 tab PO DAILY 03/17/25 03/17/25 mg tablet,delayed release (Vitron-C) lactulose 10 gram/15 mL oral 30 ml PO TID 03/17/25 03/17/25 solution (Constulose) macitentan 10 mg tablet (Opsumit) 10 mg PO DAILY 03/17/25 03/17/25 potassium chloride 10 mEq 30 meq PO DAILY 03/17/25 03/17/25 tablet,extended release sildenafil (pulm.hypertension) 20 20 mg PO TID 03/17/25 03/17/25 mg tablet Results & Data (ED) Vital Signs Vital Signs - 24 hr 03/17/25 19:19 03/17/25 20:49 03/17/25 20:55 Temperature 36.5 C Temperature Source Temporal Artery Scan Pulse Rate 103 H 108 H 95 H Pulse Rate [Apical] Pulse Rhythm [Apical] Respiratory Rate 16 20 Respiratory Effort / Characteristics Non-Labored Respiratory Depth Normal Respiratory Pattern Blood Pressure 108/60 Blood Pressure [Right Arm] Blood Pressure Mean 76 Blood Pressure Mean [Right Arm] Blood Pressure Position [Right Arm] Pulse Oximetry 97 97 Oxygen Delivery Method Room Air Room Air Oxygen Flow Rate Sepsis Recent Fever Within 48 Hours No Sepsis New/Unexplained Change in Mental Status No Sepsis Action Taken by Nursing No Action Required Oxygen Flow Rate - Titration Pulse Oximetry Post Tiitration 03/17/25 21:12 03/17/25 21:12 03/17/25 21:25 Temperature Temperature Source Pulse Rate 100 H Pulse Rate [Apical] 99 H Pulse Rhythm [Apical] Regular Respiratory Rate 14 22 Respiratory Effort / Characteristics Non-Labored Spontaneous Respiratory Depth Normal Respiratory Pattern Regular Blood Pressure 101/70 Blood Pressure [Right Arm] 101/70 Blood Pressure Mean 82 Blood Pressure Mean [Right Arm] 80 Blood Pressure Position [Right Arm] Semi-fowlers Pulse Oximetry 86 L 86 L Oxygen Delivery Method Room Air Room Air Oxygen Flow Rate 0 Sepsis Recent Fever Within 48 Hours Sepsis New/Unexplained Change in Mental Status Sepsis Action Taken by Nursing Oxygen Flow Rate - Titration 2 Pulse Oximetry Post Tiitration 98 03/17/25 21:30 03/17/25 22:00 Temperature Temperature Source Pulse Rate 98 H 83 Pulse Rate [Apical] Pulse Rhythm [Apical] Respiratory Rate 22 22 Respiratory Effort / Characteristics Respiratory Depth Respiratory Pattern Blood Pressure 110/75 86/52 L Blood Pressure [Right Arm] Blood Pressure Mean 92 63 Blood Pressure Mean [Right Arm] Blood Pressure Position [Right Arm] Pulse Oximetry 97 Oxygen Delivery Method Oxygen Flow Rate Sepsis Recent Fever Within 48 Hours Sepsis New/Unexplained Change in Mental Status Sepsis Action Taken by Nursing Oxygen Flow Rate - Titration Pulse Oximetry Post Tiitration Laboratory Data 03/18/25 11:11 03/18/25 06:14 Lab Results 03/17/25 03/17/25 03/17/25 Range/Units 19:38 19:44 20:47 WBC 2.89 L (4.8-10.8) K/ul RBC 1.66 L (4.20-5.40) M/uL Hgb 5.0 L* (12.0-16.0) g/dl Hct 16.9 L* (37.0-47.0) % MCV 101.8 H (80.0-100.0) fL MCH 30.1 (25.0-34.0) pg MCHC 29.6 L (32.0-36.0) g/dL RDW Std Deviation 98.1 H (36.4-46.3) fL RDW Coeff of Dalia 26.5 H (11.5-14.5) % Plt Count 58 L (130-400) K/uL MPV 10.4 (9.4-12.4) fL Immature Gran % (Auto) 2.4 % Neut % (Auto) 65.1 % Lymph % (Auto) 21.8 % Rankin % (Auto) 9.0 % Eos % (Auto) 1.0 % Baso % (Auto) 0.7 % Neut # (Auto) 1.88 (1.40-6.50) K/uL Lymph # (Auto) 0.63 L (1.20-3.40) K/uL Rankin # (Auto) 0.26 (0.11-0.59) K/uL Eos # (Auto) 0.03 (0.00-0.50) K/uL Baso # (Auto) 0.02 (0.00-0.20) K/uL Immature Gran # (Auto) 0.07 (0.01-0.20) K/uL Absolute Nucleated RBC 0.06 (0.00-0.12) K/uL Nucleated RBC % (auto) 2.1 % Polychromasia 2+ Tear Drop Cells 1+ PT 12.6 H (9.0-12.0) Seconds INR 1.2 H (0.9-1.1) APTT 27 (21-31) Seconds PTT Ratio 1.0 Fibrinogen Cancelled Sodium 138 (136-145) mmol/L Potassium 4.5 (3.5-5.1) mmol/L Chloride 111 H (98-107) mmol/L Carbon Dioxide 18 L (21-32) mmol/L Anion Gap 9 (3-11) BUN 17 (6-23) mg/dl Creatinine 0.93 (0.6-1.2) mg/dl Est Cr Clr Drug Dosing 65.9 ml/min eGFR 69.49 BUN/Creatinine Ratio 18.3 (10-20) Glucose 118 H (70-99(Fasting)) mg/dl Calcium 7.7 L (8.6-10.3) mg/dl Total Bilirubin 12.3 H (0.2-1.0) mg/dl AST 35 (13-39) U/L ALT 19 (7-52) U/L Alkaline Phosphatase 112 H (34-104) U/L Total Protein 6.0 (6.0-8.3) gm/dl Albumin 2.9 L (3.4-5.0) gm/dl Globulin 3.1 (2.5-4.0) gm/dl Albumin/Globulin Ratio 0.9 (0.9-2) Lipase TNP Urine Color Dark Yellow Urine Appearance Clear (Clear) Urine pH 6.0 (4.5-7.5) Ur Specific [place] 1.010 (1.000-1.030) Urine Protein Negative (Negative) Urine Glucose (UA) Negative (Negative) Urine Ketones Negative (Negative) Urine Blood Negative (Negative) Urine Nitrite Negative (Negative) Urine Bilirubin Negative (Negative) Urine Urobilinogen Negative (Negative) Ur Leukocyte Esterase Trace H (Negative) Urine WBC (Auto) 0-5 (0-5) /hpf Urine RBC (Auto) 0-2 (0-2) /hpf U Hyaline Cast (Auto) 0-2 (0-2) /lpf U Epithel Cells (Auto) 0-2 (0-2) /hpf Urine Bacteria (Auto) None Seen (None Seen) Urine Comment Blood Type B Positive Antibody Screen NEGATIVE Antibody Identification Cancelled Antibody ID Comment Cancelled Crossmatch See Detail Administered Medications Ascorbic Acid (Ascorbic Acid 500 Mg Tab) 250 mg PO DAILY GEOFF Stop: 04/17/25 08:59 Last Admin: 03/18/25 10:05 Dose: Not Given Documented By: AMS Atorvastatin Calcium (Atorvastatin 20 Mg Tab) 20 mg PO DAILY GEOFF Stop: 04/17/25 08:59 Last Admin: 03/18/25 10:05 Dose: Not Given Documented By: AMS Ferrous Sulfate (Ferrous Sulfate 325 Mg Tab) 325 mg PO DAILY [facility] Stop: 04/17/25 08:59 Last Admin: 03/18/25 10:05 Dose: Not Given Documented By: AMS Pantoprazole Sodium 40 mg/ (Dextrose) 100 mls @ 20 mls/hr IV Q5H [facility] Stop: 04/16/25 20:29 Last Admin: 03/18/25 12:13 Dose: 8 mg/hr, 20 mls/hr Documented By: Infusion: 03/18/25 12:13 Dose: Infused Documented By: Admin: 03/18/25 07:25 Dose: 8 mg/hr, 20 mls/hr Documented By: Infusion: 03/18/25 07:21 Dose: Infused Documented By: Admin: 03/18/25 02:21 Dose: 8 mg/hr, 20 mls/hr Documented By: MELODIE(2) Infusion: 03/18/25 02:21 Dose: Infused Documented By: MELODIE(2) Admin: 03/17/25 21:14 Dose: 8 mg/hr, 20 mls/hr Documented By: ENIO Ceftriaxone Sodium (Rocephin) 2,000 mg in 50 mls @ 100 mls/hr IV Q24H [facility] Stop: 03/20/25 12:59 Last Infusion: 03/18/25 15:05 Dose: Infused Documented By: Admin: 03/18/25 14:22 Dose: 100 mls/hr Documented By: MELODIE Miscellaneous (Icu Protocol For Hyperglycemia) 1 each N/A Q6 GEOFF Stop: 03/20/25 05:59 Last Admin: 03/18/25 12:37 Dose: Not Given Documented By: Admin: 03/18/25 06:41 Dose: Not Given Documented By: MELODIE(2) Miscellaneous (Icu Electrolyte Replacement Protocol) 1 each N/A BID@06,18 GEOFF; Protocol Stop: 03/25/25 05:59 Last Admin: 03/18/25 07:31 Dose: Not Given Documented By: MELODIE Discontinued Medications Pantoprazole Sodium 80 mg/ (Dextrose) 120 mls @ 480 mls/hr IV NOW ONE Stop: 03/17/25 20:28 Last Infusion: 03/17/25 21:29 Dose: Infused Documented By: Admin: 03/17/25 21:11 Dose: 480 mls/hr Documented By: ENIO Famotidine (Pepcid 20mg Iv Push) 20 mg in 5 mls @ 2.5 mls/min IV NOW STA Stop: 03/17/25 20:15 Last Admin: 03/17/25 21:12 Dose: 2.5 mls/min Documented By: ENIO Octreotide Acetate 50 mcg/ (Syringe) 10 mls @ 3 mls/min IV ONE STA Stop: 03/17/25 21:17 Last Admin: 03/17/25 21:44 Dose: 3 mls/min Documented By: ENIO Octreotide Acetate 500 mcg/ (Sodium Chloride) 100.5 mls @ 10.05 mls/hr IV .Q10H GEOFF Stop: 04/16/25 21:14 Last Infusion: 03/18/25 12:14 Dose: Infused Documented By: Admin: 03/18/25 07:25 Dose: 50 mcg/hr, 10.1 mls/hr Documented By: Infusion: 03/18/25 07:25 Dose: Infused Documented By: Admin: 03/17/25 21:44 Dose: 50 mcg/hr, 10.1 mls/hr Documented By: ENIO Calcium Gluconate () 1,000 mg in 60 mls @ 240 mls/hr IV Q15M GEOFF Stop: 03/17/25 22:59 Last Infusion: 03/18/25 00:17 Dose: Infused Documented By: AMS(2) Admin: 03/18/25 00:02 Dose: 240 mls/hr Documented By: AMS(2) Infusion: 03/18/25 00:02 Dose: Infused Documented By: AMS(2) Admin: 03/17/25 23:47 Dose: 240 mls/hr Documented By: AMS(2) Infusion: 03/17/25 23:47 Dose: Infused Documented By: AMS(2) Admin: 03/17/25 23:32 Dose: 240 mls/hr Documented By: AMS(2) Ioversol (Optiray 320 125ml) 119 ml IV ONCE ONE Stop: 03/17/25 21:07 Last Admin: 03/17/25 21:07 Dose: 119 ml Documented By: APURVA Miscellaneous (Stat Iv/Im) 1 each N/A NOW STA Stop: 03/17/25 21:15 Last Admin: 03/18/25 10:05 Dose: Not Given Documented By: MELODIE Ondansetron HCl (Ondansetron Inj 2 Mg/Ml 2 Ml Vial) 4 mg IV NOW STA Stop: 03/17/25 20:15 Last Admin: 03/17/25 21:12 Dose: 4 mg Documented By: ENIO Pantoprazole Sodium (Pantoprazole Bolus/Drip) 1 each IV NOW STA Stop: 03/17/25 20:15 Last Admin: 03/17/25 21:12 Dose: 1 each Documented By: ENIO Discharge Plan Visit Data Chief Complaint: Vomiting Stated Complaint: VOMITING BLOOD ED Provider: Carlos Leigh Discharge Problem: Acute blood loss anemia, Thrombocytopenia, Gastrointestinal hemorrhage, unspecified, Chronic liver disease Patient Disposition: Admitted As Inpatient Condition: Serious Discharge Instructions Interventions: ED Discharge Assessment Last Done: 03/17/25 22:44
[2025-03-17 20:47] LABS: Alanine Aminotransferase 19 U/L (7-52); Albumin Globulin Ratio 0.9 (0.9-2); Alkaline Phosphatase 112 U/L (34-104); Anion Gap 9 (3-11); Bilirubin,Total 12.3 mg/dl (0.2-1.0); Blood Urea Nitrogen 17 mg/dl (6-23); Calcium 7.7 mg/dl (8.6-10.3); Carbon Dioxide 18 mmol/L (21-32); Chloride 111 mmol/L (98-107); Creatinine Clr Calc Pharmacy 65.9 ml/min; Globulin 3.1 gm/dl (2.5-4.0); Glucose 118 mg/dl (70-99(Fasting)); Potassium 4.5 mmol/L (3.5-5.1); Sodium 138 mmol/L (136-145); Total Protein 6.0 gm/dl (6.0-8.3)
[2025-03-17 21:02] LABS: Immature Granulocytes # (auto) 0.07 K/uL (0.01-0.20); Immature Granulocytes % (auto) 2.4 %; Polychromasia 2+; Tear Drop Cells 1+
[2025-03-17] MEDS: OPTIRAY 320 125ml IV ONE (21:07)
[2025-03-17 21:11] LABS: Appearance Urine Clear (Clear); Bacteria Urine Automated None Seen (None Seen); Cast Urine Automated 0-2 /lpf (0-2); Epithelial Cell Urine Auto 0-2 /hpf (0-2); Glucose Urine UA Negative (Negative); RBC Urine Automated 0-2 /hpf (0-2); WBC Urine Automated 0-5 /hpf (0-5)
[2025-03-17] MEDS: FAMOTIDINE 20MG IV PUSH 20 MG/5 ML SYR IV STA (21:12)
[2025-03-17] MEDS: PANTOprazole 40 MG in DEXTROSE 5% MINI-B 100 ML IV SCH (21:12)
[2025-03-17] MEDS: PANTOPRAZOLE BOLUS/DRIP IV STA (21:12)
[2025-03-17] MEDS: ONDANSETRON INJ 2 MG/ML 2 ML VIAL IV STA (21:12)
[2025-03-17] MEDS: OCTREOTIDE ACETATE 50 MCG in SYRINGE 9.5 ML IV STA (21:44)
[2025-03-17] MEDS: OCTREOTIDE ACETATE 500 MCG in SODIUM CHLORIDE 0.9% 100 ML IV SCH (21:44)
--- NOTE | 2025-03-17 21:55 | Critical Care Consultation ---
Date of Consultation March 17, 2025 Assessment & Plan (1) Acute blood loss anemia: (2) Gastrointestinal hemorrhage, unspecified: (3) Hyperbilirubinemia: (4) Thrombocytopenia: (5) Primary pulmonary hypertension: Plan Reason Critically Ill: 64 YOF with HX ANDREW Cirrhosis, thrombocytopenia, and hyperbilirubinemia, presents with hematemesis and HGB of 5.0. Patient to ICU for acute blood loss anemia on chronic anemia and presumed GI bleed unspecified following 2 episodes of reported hematemesis. Neuro - NO acute needs CAM ICU: NEGATIVE - Not encephalopathic currently - No neurological deficits appreciated - Attempt to maintain normal sleep and wake cycle and frequent re-orientation to avoid ICU delirium Cardiac - acute blood loss anemia - Symptomatic with dyspnea and some dizziness earlier- transfuse 2-3 units of PRBC - She is without organ dysfunction and BP is currently stable - See further care in GI section - Diurese as needed with hx of Rv failure and pulm HTN- currently on hold until hemodynamics proven stable Respiratory - No acute needs- Hx Primary pulm htn - continue sildenafil after NPO status is reversed GI - GI bleed unspecified, Hyperbilirubiniemia, Hx: Cirrhosis presumed ANDREW, Painless jaundice, splenomegaly - GI BLeed- patient reports endoscopy performed in December that was reported to her as "normal"- unsure of varices- [place]- 11 - CTA abdomen without acute hemorrhage noted as well as no ascites on my interpretation- formal read received at 0048- "2 cm linear notes radiopaque foriegn body within the stomach"- EGD report noted 03/08 with clips placed in gastric body. - BUN normal - Transfuse as indicated for symptoms, acute bleeding, or symptomatic anemia- goal HGB 7-8.0 - Protonix infusion and Octreotide infusion - continue - NPO - Maintain 2 large bore IV (18g or larger)- pending clinical course consi deration for central access and arterial line may be indicated - Consider NGT if hematemesis or suspicion of brisk UGIB noted - Appreciate GI consultation and assistance - Unsure of her work up for her hyperbilirubinemia- or work up for evaluation for obstruction or Hepatocellular Carcinoma- primary service may be able to weigh in on this more with outpatient GI notes - INR 1.2- follow reverse if > 1.5 - Pending Fibrinogen - HGB level in AM as blood was started at 2329 - RENAL/LYTES- Non-gap metabolic acidosis, hypocalcemia - Resuscitate with blood products- follow organ perfusion labs - replete calcium now with gluconate 3GM in light of blood transfusion as well - NO acute needs ENDO - NO acute needs - ICU hyperglycemic protocol HEME - As above, pancytopenia - Consider peripheral smear - however has followed up with hemeonc in past for work up of pancytopenia - macrocytic anemia chronic - Hold on Platelet transfusion at this time, unless active hemorrhage with ins tability- noted splenomegaly ID - NO concern at this time for acute infective cause LINES/IV ACCESS - IV Continue use of these lines DVT PROPHYLAXIS - SCDS, hold chemoprophylaxis in the setting of likely acute blood loss from GI unspecified source DISPO: ICU until hemodyanmics and blood counts are stable I have personally spent 48 minutes of critical care time in the direct management of this patient. This is a life/limb threatening event. This includes time spent evaluating patient, direct bedside care, chart review, placing orders, interpretation of diagnostic studies, discussion with consultants, patient, and family members, as well as other required patient management activities. This time is exclusive of all separately billable procedures, and separate from and in addition to any other critical care service time. Thank you for allowing us to participate in the care of this patient. Please refer to my attending physician's documentation for any further recommendations. History of Present Illness Reason for Consultation: anemia secondary to acute blood loss- GI bleed unspecified Requesting Physician: Kuldip Arce MD Attending Physician: Kuldip Arce MD History of Present Illness 64 YOF with medical history of: ANDREW Cirrhosis, Jaundice, Hyperbilirubinemia, Thrombocytopenia, RV Failure, Primary Pulmonary HTN, Portal HTN. Patient prese nts to the ER for complaints of hematemesis earlier in the day. She reports that this has been proceeded by 2 days of dark stools. She denies any abdominal pain with or without eating. She has noticed increase in dyspnea at home but denies any other symptoms. She reports feeling well normally, and has not tried any other therapies at home. In the ER the patient had routine labs performed as well as CXR, CTA of abd/pelvis and type and cross for blood products. She was noted to be Thrombocytopenic with HGB 5.0 and Platelets of 58 on her CBC, she was also noted to have elevated bilirubin at 12 (which has been consistent with her previous levels), low bicarb and low calcium. Patient also experienced another bout of hematemesis while in the ER. She was initiated on Protonix infusion with bolus as well as octreotide infusion. Awaiting blood products. Patient was evaluated in the ER, where she is awake and conversant. She denies abd pain as well as current nausea and vomiting. She will be admitted to ICU to follow symptoms, blood counts, and hemodynamics. Case reportedly discussed with GI by ER Attending. NPO plan for scope in AM unless patient becomes unstable. CODE: FULL Allergies Allergy/AdvReac Type Severity Reaction Status Date / Time No Known Allergies Allergy Verified 08/05/23 22:23 Home Medications Medication Instructions Recorded Confirmed Type atorvastatin 20 mg tablet 20 mg PO DAILY 03/17/25 03/17/25 History furosemide 40 mg tablet 40 mg PO DAILY 03/17/25 03/17/25 History iron,carbonyl 65 mg-vitamin C 125 1 tab PO DAILY 03/17/25 03/17/25 History mg tablet,delayed release (Vitron-C) lactulose 10 gram/15 mL oral 30 ml PO TID 03/17/25 03/17/25 History solution (Constulose) macitentan 10 mg tablet (Opsumit) 10 mg PO DAILY 03/17/25 03/17/25 History potassium chloride 10 mEq 30 meq PO DAILY 03/17/25 03/17/25 History tablet,extended release sildenafil (pulm.hypertension) 20 20 mg PO TID 03/17/25 03/17/25 History mg tablet Patient History Medical History (Updated 03/18/25 @ 01:01 by WINSTON Gr) Anxiety URI, acute Abnormal ECG SOB (shortness of breath) on exertion Elevated troponin I level Abnormal EKG Chest pain COVID-19 Encounter for pre-operative examination Cough Vertigo Pneumonia Tobacco abuse Pulmonary nodules Anemia Elevated bilirubin Right heart failure due to pulmonary hypertension Cirrhosis Pulmonary hypertension F/U WITH PULM MEDICINE AT [facility] [address]- DR CRUZ DUMONT AND DR CAREY ([facility] [address]) Surgical History (Updated 03/17/25 @ 22:12 by WINSTON Gr) History of tubal ligation History of D&C Nausea and vomiting after administration of anesthetic agent Family History Mother Coronary heart disease CABG in 70s Alzheimer disease Father Coronary heart disease CABG in 70s Family history of diabetes mellitus Brother Family history of diabetes mellitus Other Hypertension Myocardial infarction Social History Smoking Status: Never smoker packs per day: 10; Second Hand Exposure: No; Do You Dip or Chew Tobacco: No; Tobacco Cessation Education Requested by Patient: No Hx Alcohol Use: No Hx Substance Use: No Preferred Language: Croatian Communication Ability: Effective Source Inspector Required: No Beliefs That Will Affect Care: None marital status: Current Living Situation: Family Current Living Situation Comment: Lives with daughter Other Information That Helps Us Care for You: No Feels Safe at Home: Yes Safety Concerns: Feels Safe At This Time Assistive Devices: None Review of Systems Review of Systems: REVIEW OF SYSTEMS: Constitutional: No fever, sweats or chills Eyes: (+) jaundice, No diplopia, no worsening or blurred vision ENT: normal hearing, no trouble swallowing Respiratory: (+) dyspnea with exertion, No cough, sputum, dyspnea at rest Cardiovascular: (+) dizziness with standing No chest pain, tightness or palpitations Abdomen: (+) hematemesis and dark stools, No pain, nausea, diarrhea or constipation Musculoskeletal: No joint pain, calf pain, swelling Neurologic: No weakness, numbness/tingling, or balance problems Psychiatric: No anxiety or depression Skin: No rash or itch Physical Exam Physical Exam: PHYSICAL EXAM: General: awake, alert, no apparent distress Head: Normocephalic, atraumatic ENT: icteric, PERRL, EOMI, no pharyngeal exudate, mucous membranes dry Neuro: AAO x 3, speech clear and appropriate, strength intact bilaterally 5/5, sensation intact and equal all extremities and dermatomes, no pronator drift Chest: equal rise and fall of the chest, no accessory muscle use, Clear to auscultation, on room air, Cardiac: Regular rate and rhythm, telemetry reviewed- NSR, skin warm dry, cap refill <3 seconds, peripheral pulses +2 no JVD, no murmur, no edema GI: NABS x 4 quadrants, soft, nontender to palpation, no rebound, guarding or tenderness : Spontaneously voiding, no pain, Psych: Normal mood and affect Skin: no rash or erythema Results & Data Results & Data Vital Signs (Past 12 Hours) Vital Signs Temp Pulse Pulse Resp BP BP Pulse Ox 03/17/25 21:25 86 L 03/17/25 21:12 99 H 14 101/70 86 L 03/17/25 20:55 95 H 03/17/25 20:49 108 H 20 97 03/17/25 19:19 36.5 C 103 H 16 108/60 97 O2 Del Method O2 Flow Rate 03/17/25 21:25 Room Air 0 03/17/25 21:12 Room Air 03/17/25 20:55 03/17/25 20:49 Room Air 03/17/25 19:19 Room Air Laboratory Results Abnormal lab results 03/17/25 03/17/25 03/17/25 Range/Units 19:38 19:44 20:47 WBC 2.89 L (4.8-10.8) K/ul RBC 1.66 L (4.20-5.40) M/uL Hgb 5.0 L* (12.0-16.0) g/dl Hct 16.9 L* (37.0-47.0) % MCV 101.8 H (80.0-100.0) fL MCHC 29.6 L (32.0-36.0) g/dL RDW Std Deviation 98.1 H (36.4-46.3) fL RDW Coeff of Dalia 26.5 H (11.5-14.5) % Plt Count 58 L (130-400) K/uL Lymph # (Auto) 0.63 L (1.20-3.40) K/uL PT 12.6 H (9.0-12.0) Seconds INR 1.2 H (0.9-1.1) Chloride 111 H (98-107) mmol/L Carbon Dioxide 18 L (21-32) mmol/L Glucose 118 H (70-99(Fasting)) mg/dl Calcium 7.7 L (8.6-10.3) mg/dl Total Bilirubin 12.3 H (0.2-1.0) mg/dl Alkaline Phosphatase 112 H (34-104) U/L Albumin 2.9 L (3.4-5.0) gm/dl Ur Leukocyte Esterase Trace H (Negative) Antibody Screen POSITIVE A Crossmatch See Detail Diagnostic Findings Abdomen/Pelvis CTA 03/17/25 20:33 Exam(s): CTA ABDOMEN + PELVIS With Contrast IV Amt: 119ml optiray 320 EXAM: CT Abdomen and Pelvis With Intravenous Contrast CLINICAL HISTORY: Reason for exam: UGIB. TECHNIQUE: Axial computed tomographic images of the abdomen and pelvis with intravenous contrast. CTDI is 20.19 mGy and DLP is 1045.73 mGy-cm. Automated exposure control was utilized for the study. A dose lowering technique was utilized adhering to the principles of ALARA. CONTRAST: Patient received 119ml optiray 320 of IV contrast COMPARISON: No relevant prior studies available. FINDINGS: VASCULATURE: Aorta: There are atherosclerotic changes. No abdominal aortic aneurysm. No dissection. Celiac trunk and mesenteric arteries: There is a mild to moderate stenosis noted the origin of the celiac axis. The origins of the SMA and LEEANNA are unremarkable. Renal arteries: No occlusion or significant stenosis. Iliac arteries: There are atherosclerotic changes. No occlusion or significant stenosis. Lung bases: No consolidation. ABDOMEN: Liver: The liver is enlarged. Gallbladder and bile ducts: There appear to be gallstones within the gallbladder. No ductal dilation. Pancreas: No ductal dilation. No mass. Spleen: The spleen is enlarged.. Adrenals: No mass. Kidneys and ureters: There are small bilateral renal calcifications. No hydronephrosis. There are rounded lucencies noted in the left kidney.. Stomach and bowel: There is a 2 cm linear radiopaque foreign body noted within the stomach. There seems to be some irregular thickening of the distal gastric wall with some enhancement. There is air and stool noted in the colon. No extravasated contrast is noted on this exam. PELVIS: Bladder: No calculi are noted within the bladder.. Reproductive: Unremarkable as visualized. ABDOMEN and PELVIS: Intraperitoneal space: There is a small amount of free fluid in the pelvis.. No free air. Bones/joints: There are degenerative changes in the spine. There is evidence for Schmorl's node formation at L3 and L4. There are degenerative changes in the hips.. Soft tissues: Unremarkable. Lymph nodes: No enlarged lymph nodes. IMPRESSION: No extravasated contrast is noted on this exam to suggest an area of active GI bleeding. There appears to be some irregular thickening of the distal gastric wall with enhancement. An underlying lesion cannot be excluded. For further evaluation, consider correlation with endoscopy or barium studies. There is a 2 cm linear radiopaque foreign body within the stomach. There are small bilateral renal calcifications without evidence of hydronephrosis. There are possible left renal cysts. Possible cholelithiasis. See discussion above Electronically signed by: Lucas Mckenzie MD 03/18/25 00:39 AM Medications Administered Home Medications atorvastatin 20 mg tablet 20 mg PO DAILY 03/17/25 [History Confirmed 03/17/25] furosemide 40 mg tablet 40 mg PO DAILY 03/17/25 [History Confirmed 03/17/25] iron,carbonyl 65 mg-vitamin C 125 mg tablet,delayed release (Vitron-C) 1 tab PO DAILY 03/17/25 [History Confirmed 03/17/25] lactulose 10 gram/15 mL oral solution (Constulose) 30 ml PO TID 03/17/25 [History Confirmed 03/17/25] macitentan 10 mg tablet (Opsumit) 10 mg PO DAILY 03/17/25 [History Confirmed 03/17/25] potassium chloride 10 mEq tablet,extended release 30 meq PO DAILY 03/17/25 [History Confirmed 03/17/25] sildenafil (pulm.hypertension) 20 mg tablet 20 mg PO TID 03/17/25 [History Confirmed 03/17/25] Active Medications Sodium Chloride (Nss) 100 mls @ 15 mls/hr IV .Q6H40M PRN PRN Reason: For Transfusion Duration Stop: 03/18/25 04:14 Pantoprazole Sodium 40 mg/ (Dextrose) 100 mls @ 20 mls/hr IV Q5H GEOFF Stop: 04/16/25 20:29 Last Admin: 03/17/25 21:14 Dose: 8 mg/hr, 20 mls/hr Octreotide Acetate 500 mcg/ (Sodium Chloride) 100.5 mls @ 10.05 mls/hr IV .Q10H EGOFF Stop: 04/16/25 21:14 Last Admin: 03/17/25 21:44 Dose: 50 mcg/hr, 10.1 mls/hr Calcium Gluconate () 1,000 mg in 60 mls @ 240 mls/hr IV Q15M GEOFF Stop: 03/17/25 22:59 ECG Additional Comments: Normal sinus rhythm Nonspecific ST and T wave abnormality Abnormal ECG When compared with ECG [id number] 10:25, ST no longer depressed inInferior leads T wave inversion no longer evident inInferior leads T wave inversion no longer evident inLateral leads Coding Level of Care Code 16966 CRITICAL CARE 1ST 30-74M Diagnoses Acute blood loss anemia D62 Gastrointestinal hemorrhage, unspecified K92.2 Hyperbilirubinemia E80.6 Thrombocytopenia D69.6 Primary pulmonary hypertension I27.0
[2025-03-17 22:14] LABS: INR 1.2 (0.9-1.1); Partial Thromboplastin Time 27 Seconds (21-31); Prothrombin Time 12.6 Seconds (9.0-12.0)
[2025-03-17] MEDS: CALCIUM GLUCONATE 1,000 MG/60 ML BAG IV SCH (23:32)
[2025-03-17 23:41] LABS: Fibrinogen 189 mg/dl (184-400)
[2025-03-17] MEDS ORDERED: ACETAMINOPHEN 325 MG TAB PO PRN (23:50)
--- NOTE | 2025-03-18 00:41 | CT Scan Report ---
Exam(s): CTA ABDOMEN + PELVIS With Contrast IV Amt: 119ml optiray 320 EXAM: CT Abdomen and Pelvis With Intravenous Contrast CLINICAL HISTORY: Reason for exam: UGIB. TECHNIQUE: Axial computed tomographic images of the abdomen and pelvis with intravenous contrast. CTDI is 20.19 mGy and DLP is 1045.73 mGy-cm. Automated exposure control was utilized for the study. A dose lowering technique was utilized adhering to the principles of ALARA. CONTRAST: Patient received 119ml optiray 320 of IV contrast COMPARISON: No relevant prior studies available. FINDINGS: VASCULATURE: Aorta: There are atherosclerotic changes. No abdominal aortic aneurysm. No dissection. Celiac trunk and mesenteric arteries: There is a mild to moderate stenosis noted the origin of the celiac axis. The origins of the SMA and LEEANNA are unremarkable. Renal arteries: No occlusion or significant stenosis. Iliac arteries: There are atherosclerotic changes. No occlusion or significant stenosis. Lung bases: No consolidation. ABDOMEN: Liver: The liver is enlarged. Gallbladder and bile ducts: There appear to be gallstones within the gallbladder. No ductal dilation. Pancreas: No ductal dilation. No mass. Spleen: The spleen is enlarged.. Adrenals: No mass. Kidneys and ureters: There are small bilateral renal calcifications. No hydronephrosis. There are rounded lucencies noted in the left kidney.. Stomach and bowel: There is a 2 cm linear radiopaque foreign body noted within the stomach. There seems to be some irregular thickening of the distal gastric wall with some enhancement. There is air and stool noted in the colon. No extravasated contrast is noted on this exam. PELVIS: Bladder: No calculi are noted within the bladder.. Reproductive: Unremarkable as visualized. ABDOMEN and PELVIS: Intraperitoneal space: There is a small amount of free fluid in the pelvis.. No free air. Bones/joints: There are degenerative changes in the spine. There is evidence for Schmorl's node formation at L3 and L4. There are degenerative changes in the hips.. Soft tissues: Unremarkable. Lymph nodes: No enlarged lymph nodes. IMPRESSION: No extravasated contrast is noted on this exam to suggest an area of active GI bleeding. There appears to be some irregular thickening of the distal gastric wall with enhancement. An underlying lesion cannot be excluded. For further evaluation, consider correlation with endoscopy or barium studies. There is a 2 cm linear radiopaque foreign body within the stomach. There are small bilateral renal calcifications without evidence of hydronephrosis. There are possible left renal cysts. Possible cholelithiasis. See discussion above Electronically signed by: Lucas Mckenzie MD 03/18/25 00:39 AM
--- NOTE | 2025-03-18 01:17 | History & Physical Report ---
Date of Service March 17, 2025 Assessment & Plan (1) Acute blood loss anemia: Plan: 64-year-old female with past medical significant for nocturnal hypoxemia, severe pulmonary hypertension, chronic heart failure with preserved ejection fraction, right heart failure, unspecified cirrhosis of liver, celiac disease, inflammatory polyarthropathy, anemia, thrombocytopenia, pancytopenia, tobacco abuse in remission, GENI positive, jaundice, abnormal LFTs who lives with her daughter was brought in because of melena and hematemesis. Patient says since last couple of days she is having melena. And today she was vomiting some blood clots. Patient states in December she had a lot of hematemesis and she was in [facility]. Patient states she had EGD and colonoscopy at [facility] and were unremarkable as per patient. Denies any headache. Denies dizziness. No runny nose or sore throat. No cough. No fevers. No difficulty swallowing. Has some shortness of breath. Denies chest pain. Hemodynamics are okay. Conversing okay. Daughter is in the room. In November 2023 patient was admitted to [facility] for acute hypoxemic respiratory failure thought to be from acute right heart failure in the setting of pulmonary hypertension and she was transferred to [facility] for IV prostacyclin. At [facility] she was treated for cardiogenic shock with right heart failure in the setting of severe pulmonary hypertension. 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 At [facility] she was admitted to ICU and Victoria was placed and started on inhaled Flolan and diuresis and vasopressor support. Underwent diuresis to net negative 24.4 L. As patient found to have elevated LFTs and concern for cirrhosis GI was consulted and suspected congestive hepatopathy in setting of severe pulm hypertension and possible autoimmune hepatitis. Also found to have lytic bone lesion on CAT scan suspicious for malignancy. Hematology oncology consulted but bone scan was negative. Patient currently on sildenafil and macitentan for pulmonary hypertension. ASMA, AMA and TTG IgA were all elevated concerning for celiac disease and autoimmune liver disease. Patient initially did not had liver biopsy but had biopsy done on 03/01/2024 which only showed mild lobular and portal inflammation and portal and focal periportal fibrosis. Patient had upper endoscopy on 03/01/2024 and found to have single medium angioectasia with bleeding in the gastric body. Vaporization for hemostasis using argon plasma was successful. To prevent bleeding postintervention 3 hemostatic clips were successfully placed(MR conditional). Patient is also following with heme-onc for anemia and as per heme-onc notes from January 2025 anemia most likely multifactorial including chronic disease, liver cirrhosis and medication, nutritional and hypersplenism and chronic inflammation and possible GI bleeding from esophageal and gastric varices. Per EGD on 03/01/2024 examined esophagus was normal. Acute blood loss anemia Melena and hematemesis Hemoglobin 5 History of liver cirrhosis unspecified Started on Protonix drip and Sandostatin drip Received 2 units of PRBC and morning labs hemoglobin 6.2 and 1 more unit ordered Close monitoring ICU CTA abdomen and pelvis no active bleeding seen. 2 cm linear radiopaque foreign body within the stomach(possibly clips?). Possible cholelithiasis GI consulted Patient says she has significant hematemesis in December 2024 and she was at the [facility]. Can get records. Liver cirrhosis unspecified Hyperbilirubinemia total bilirubin 12.3. Seems chronic elevation Restart diuretics when stable Restart lactulose when able to take Follows with GI Pulmonary hypertension On Opsumit and sildenafil Restart when stable Hyperlipidemia On statin. Currently patient hold History of right-sided heart failure and chronic heart failure with preserved ejection fraction Severe TR Monitor for volume overload Pancytopenia WBC 2.8. Hemoglobin 5. Platelets 58 Follows with heme-onc and GI Close monitor. Celiac disease Gluten-free diet DVT prophylaxis SCDs Disposition ICU Level 1 full code History of Present Illness Chief Complaint: GI bleed Primary Care Provider: Sarah Galaviz DO 64-year-old female with past medical significant for nocturnal hypoxemia, severe pulmonary hypertension, chronic heart failure with preserved ejection fraction, right heart failure, unspecified cirrhosis of liver, celiac disease, inflammatory polyarthropathy, anemia, thrombocytopenia, pancytopenia, tobacco abuse in remission, GENI positive, jaundice, abnormal LFTs who lives with her daughter was brought in because of melena and hematemesis. Patient says since last couple of days she is having melena. And today she was vomiting some blood clots. Patient states in December she had a lot of hematemesis and she was in [facility]. Patient states she had EGD and colonoscopy at [facility] and were unremarkable as per patient. Denies any headache. Denies dizziness. No runny nose or sore throat. No cough. No fevers. No difficulty swallowing. Has some shortness of breath. Denies chest pain. Hemodynamics are okay. Conversing okay. Daughter is in the room. In November 2023 patient was admitted to [facility] for acute hypoxemic respiratory failure thought to be from acute right heart failure in the setting of pulmonary hypertension and she was transferred to [facility] for IV prostacyclin. At [facility] she was treated for cardiogenic shock with right heart failure in the setting of severe pulmonary hypertension. 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 At [facility] she was admitted to ICU and Victoria was placed and started on inhaled Flolan and diuresis and vasopressor support. Underwent diuresis to net negative 24.4 L. As patient found to have elevated LFTs and concern for cirrhosis GI was consulted and suspected congestive hepatopathy in setting of severe pulm hypertension and possible autoimmune hepatitis. Also found to have lytic bone lesion on CAT scan suspicious for malignancy. Hematology oncology consulted but bone scan was negative. Patient currently on sildenafil and macitentan for pulmonary hypertension. ASMA, AMA and TTG IgA were all elevated concerning for celiac disease and autoimmune liver disease. Patient initially did not had liver biopsy but had biopsy done on 03/01/2024 which only showed mild lobular and portal inflammation and portal and focal periportal fibrosis. Patient had upper endoscopy on 03/01/2024 and found to have single medium angioectasia with bleeding in the gastric body. Vaporization for hemostasis using argon plasma was successful. To prevent bleeding postintervention 3 hemostatic clips were successfully placed(MR conditional). Patient is also following with heme-onc for anemia and as per heme-onc notes from January 2025 anemia most likely multifactorial including chronic disease, liver cirrhosis and medication, nutritional and hypersplenism and chronic inflammation and possible GI bleeding from esophageal and gastric varices. Per EGD on 03/01/2024 examined esophagus was normal. Past medical history. As mentioned above. Past surgical history. DNC after delivery. EGD with endoscopic ultrasound. Ligation oviducts. Right heart catheterization. Social history. . Quit smoking 2018. Smoked 1 pack a day for 38 years. No alcohol use. No drug use. Family history. Mother had Alzheimer's disease. Asthma. CABG. Father had diabetes. Bypass. Hypertension. Stroke. Brother had diabetes. Allergies Allergy/AdvReac Type Severity Reaction Status Date / Time No Known Allergies Allergy Verified 08/05/23 22:23 Home Medications Medication Instructions Recorded Confirmed Type atorvastatin 20 mg tablet 20 mg PO DAILY 03/17/25 03/17/25 History furosemide 40 mg tablet 40 mg PO DAILY 03/17/25 03/17/25 History iron,carbonyl 65 mg-vitamin C 125 1 tab PO DAILY 03/17/25 03/17/25 History mg tablet,delayed release (Vitron-C) lactulose 10 gram/15 mL oral 30 ml PO TID 03/17/25 03/17/25 History solution (Constulose) macitentan 10 mg tablet (Opsumit) 10 mg PO DAILY 03/17/25 03/17/25 History potassium chloride 10 mEq 30 meq PO DAILY 03/17/25 03/17/25 History tablet,extended release sildenafil (pulm.hypertension) 20 20 mg PO TID 03/17/25 03/17/25 History mg tablet Past Med/Surg History Problem List (Updated 03/18/25 @ 07:49 by Maged Bernardo MD) Chronic liver disease Gastrointestinal hemorrhage, unspecified Acute blood loss anemia Hyperbilirubinemia Thrombocytopenia Seen by [facility] heme - platelets and H&H stable per 03/20/20 office note Primary pulmonary hypertension Medical History (Updated 03/18/25 @ 07:49 by Maged Bernardo MD) Anxiety URI, acute Abnormal ECG SOB (shortness of breath) on exertion Elevated troponin I level Abnormal EKG Chest pain COVID-19 Encounter for pre-operative examination Cough Vertigo Pneumonia Tobacco abuse Pulmonary nodules Anemia Elevated bilirubin Right heart failure due to pulmonary hypertension Cirrhosis Pulmonary hypertension F/U WITH PULM MEDICINE AT [facility]- DR CRUZ DMUONT AND DR CAREY ([facility]) Surgical History (Updated 03/17/25 @ 22:12 by WINSTON Gr) History of tubal ligation History of D&C Nausea and vomiting after administration of anesthetic agent Family History Mother Coronary heart disease CABG in 70s Alzheimer disease Father Coronary heart disease CABG in 70s Family history of diabetes mellitus Brother Family history of diabetes mellitus Other Hypertension Myocardial infarction Social History Smoking Status: Never smoker packs per day: 10; Second Hand Exposure: No; Do You Dip or Chew Tobacco: No; Tobacco Cessation Education Requested by Patient: No Hx Alcohol Use: No Hx Substance Use: No Preferred Language: Greek Communication Ability: Effective Homeworker Required: No Beliefs That Will Affect Care: None marital status: Current Living Situation: Family Current Living Situation Comment: Lives with daughter Other Information That Helps Us Care for You: No Feels Safe at Home: Yes Safety Concerns: Feels Safe At This Time Assistive Devices: None Review of Systems Review of Systems: All systems reviewed & are unremarkable except as noted in HPI & below Physical Exam Physical Exam: General- Not in acute distress Head- atraumatic Eyes- PERRL, icterus present ENT- oropharynx clear Neck- supple, no JVD, no carotid bruit Lungs- clear to auscultation no wheezing or crackles Heart- regular rhythm; murmur in tricuspid area, no gallop. Abdomen- normal bowel sounds, soft, nontender, no distension Extremities- b/l lower extremity skin changes seen with mild edema Neuro- alert, oriented PERRL, no facial palsy; no dysarthria; moves extremities Results & Data Results & Data Vital Signs (Past 12 Hours) Vital Signs Temp Pulse Pulse Resp BP BP Pulse Ox 03/17/25 21:25 86 L 03/17/25 21:12 99 H 14 101/70 86 L 03/17/25 20:55 95 H 03/17/25 20:49 108 H 20 97 03/17/25 19:19 36.5 C 103 H 16 108/60 97 O2 Del Method O2 Flow Rate 03/17/25 21:25 Room Air 0 03/17/25 21:12 Room Air 03/17/25 20:55 03/17/25 20:49 Room Air 03/17/25 19:19 Room Air Diagnostic Findings Laboratory Results WBC 2.89 K/ul (4.8-10.8) L 03/17/25 19:38 RBC 1.66 M/uL (4.20-5.40) L 03/17/25 19:38 Hgb 5.0 g/dl (12.0-16.0) L* 03/17/25 19:38 Hct 16.9 % (37.0-47.0) L* 03/17/25 19:38 MCV 101.8 fL (80.0-100.0) H 03/17/25 19:38 MCH 30.1 pg (25.0-34.0) 03/17/25 19:38 MCHC 29.6 g/dL (32.0-36.0) L 03/17/25 19:38 RDW Std Deviation 98.1 fL (36.4-46.3) H 03/17/25 19:38 RDW Coeff of Dalia 26.5 % (11.5-14.5) H 03/17/25 19:38 Plt Count 58 K/uL (130-400) L 03/17/25 19:38 MPV 10.4 fL (9.4-12.4) 03/17/25 19:38 Immature Gran % (Auto) 2.4 % 03/17/25 19:38 Neut % (Auto) 65.1 % 03/17/25 19:38 Lymph % (Auto) 21.8 % 03/17/25 19:38 [place] % (Auto) 9.0 % 03/17/25 19:38 Eos % (Auto) 1.0 % 03/17/25 19:38 Baso % (Auto) 0.7 % 03/17/25 19:38 Neut # (Auto) 1.88 K/uL (1.40-6.50) 03/17/25 19:38 Lymph # (Auto) 0.63 K/uL (1.20-3.40) L 03/17/25 19:38 [place] # (Auto) 0.26 K/uL (0.11-0.59) 03/17/25 19:38 Eos # (Auto) 0.03 K/uL (0.00-0.50) 03/17/25 19:38 Baso # (Auto) 0.02 K/uL (0.00-0.20) 03/17/25 19:38 Immature Gran # (Auto) 0.07 K/uL (0.01-0.20) 03/17/25 19:38 Absolute Nucleated RBC 0.06 K/uL (0.00-0.12) 03/17/25 19:38 Nucleated RBC % (auto) 2.1 % 03/17/25 19:38 Polychromasia 2+ 03/17/25 19:38 Tear Drop Cells 1+ 03/17/25 19:38 PT 12.6 Seconds (9.0-12.0) H 03/17/25 19:38 INR 1.2 (0.9-1.1) H 03/17/25 19:38 APTT 27 Seconds (21-31) 03/17/25 19:38 PTT Ratio 1.0 03/17/25 19:38 Fibrinogen 189 mg/dl (184-400) 03/17/25 22:26 Sodium 138 mmol/L (136-145) 03/17/25 19:38 Potassium 4.5 mmol/L (3.5-5.1) 03/17/25 19:38 Chloride 111 mmol/L (98-107) H 03/17/25 19:38 Carbon Dioxide 18 mmol/L (21-32) L 03/17/25 19:38 Anion Gap 9 (3-11) 03/17/25 19:38 BUN 17 mg/dl (6-23) 03/17/25 19:38 Creatinine 0.93 mg/dl (0.6-1.2) 03/17/25 19:38 Est Cr Clr Drug Dosing 65.9 ml/min 03/17/25 19:38 eGFR 69.49 03/17/25 19:38 BUN/Creatinine Ratio 18.3 (10-20) 03/17/25 19:38 Glucose 118 mg/dl (70-99(Fasting)) H 03/17/25 19:38 POC Glucose 114 mg/dl (70-99) H 03/17/25 23:42 Calcium 7.7 mg/dl (8.6-10.3) L 03/17/25 19:38 Total Bilirubin 12.3 mg/dl (0.2-1.0) H 03/17/25 19:38 AST 35 U/L (13-39) 03/17/25 19:38 ALT 19 U/L (7-52) 03/17/25 19:38 Alkaline Phosphatase 112 U/L (34-104) H 03/17/25 19:38 Total Protein 6.0 gm/dl (6.0-8.3) 03/17/25 19:38 Albumin 2.9 gm/dl (3.4-5.0) L 03/17/25 19:38 Globulin 3.1 gm/dl (2.5-4.0) 03/17/25 19:38 Albumin/Globulin Ratio 0.9 (0.9-2) 03/17/25 19:38 Lipase TNP 03/17/25 19:38 Urine Color Dark Yellow 03/17/25 20:47 Urine Appearance Clear (Clear) 03/17/25 20:47 Urine pH 6.0 (4.5-7.5) 03/17/25 20:47 Ur Specific [place] 1.010 (1.000-1.030) 03/17/25 20:47 Urine Protein Negative (Negative) 03/17/25 20:47 Urine Glucose (UA) Negative (Negative) 03/17/25 20:47 Urine Ketones Negative (Negative) 03/17/25 20:47 Urine Blood Negative (Negative) 03/17/25 20:47 Urine Nitrite Negative (Negative) 03/17/25 20:47 Urine Bilirubin Negative (Negative) 03/17/25 20:47 Urine Urobilinogen Negative (Negative) 03/17/25 20:47 Ur Leukocyte Esterase Trace (Negative) H 03/17/25 20:47 Urine WBC (Auto) 0-5 /hpf (0-5) 03/17/25 20:47 Urine RBC (Auto) 0-2 /hpf (0-2) 03/17/25 20:47 U Hyaline Cast (Auto) 0-2 /lpf (0-2) 03/17/25 20:47 U Epithel Cells (Auto) 0-2 /hpf (0-2) 03/17/25 20:47 Urine Bacteria (Auto) None Seen (None Seen) 03/17/25 20:47 Urine Comment 03/17/25 20:47 Nasal Screen MRSA (PCR) Negative (Negative) 03/17/25 23:26 Blood Type B Positive 03/17/25 19:44 Antibody Screen NEGATIVE 03/17/25 19:44 Antibody Identification Cancelled 03/17/25 19:44 Antibody ID Comment Cancelled 03/17/25 19:44 Crossmatch See Detail 03/17/25 19:44 Impressions Abdomen/Pelvis CTA 03/17/25 20:33 Exam(s): CTA ABDOMEN + PELVIS With Contrast IV Amt: 119ml optiray 320 EXAM: CT Abdomen and Pelvis With Intravenous Contrast CLINICAL HISTORY: Reason for exam: UGIB. TECHNIQUE: Axial computed tomographic images of the abdomen and pelvis with intravenous contrast. CTDI is 20.19 mGy and DLP is 1045.73 mGy-cm. Automated exposure control was utilized for the study. A dose lowering technique was utilized adhering to the principles of ALARA. CONTRAST: Patient received 119ml optiray 320 of IV contrast COMPARISON: No relevant prior studies available. FINDINGS: VASCULATURE: Aorta: There are atherosclerotic changes. No abdominal aortic aneurysm. No dissection. Celiac trunk and mesenteric arteries: There is a mild to moderate stenosis noted the origin of the celiac axis. The origins of the SMA and LEEANNA are unremarkable. Renal arteries: No occlusion or significant stenosis. Iliac arteries: There are atherosclerotic changes. No occlusion or significant stenosis. Lung bases: No consolidation. ABDOMEN: Liver: The liver is enlarged. Gallbladder and bile ducts: There appear to be gallstones within the gallbladder. No ductal dilation. Pancreas: No ductal dilation. No mass. Spleen: The spleen is enlarged.. Adrenals: No mass. Kidneys and ureters: There are small bilateral renal calcifications. No hydronephrosis. There are rounded lucencies noted in the left kidney.. Stomach and bowel: There is a 2 cm linear radiopaque foreign body noted within the stomach. There seems to be some irregular thickening of the distal gastric wall with some enhancement. There is air and stool noted in the colon. No extravasated contrast is noted on this exam. PELVIS: Bladder: No calculi are noted within the bladder.. Reproductive: Unremarkable as visualized. ABDOMEN and PELVIS: Intraperitoneal space: There is a small amount of free fluid in the pelvis.. No free air. Bones/joints: There are degenerative changes in the spine. There is evidence for Schmorl's node formation at L3 and L4. There are degenerative changes in the hips.. Soft tissues: Unremarkable. Lymph nodes: No enlarged lymph nodes. IMPRESSION: No extravasated contrast is noted on this exam to suggest an area of active GI bleeding. There appears to be some irregular thickening of the distal gastric wall with enhancement. An underlying lesion cannot be excluded. For further evaluation, consider correlation with endoscopy or barium studies. There is a 2 cm linear radiopaque foreign body within the stomach. There are small bilateral renal calcifications without evidence of hydronephrosis. There are possible left renal cysts. Possible cholelithiasis. See discussion above Electronically signed by: Lucas Mckenzie MD 03/18/25 00:39 AM ECG Additional Comments: ECG. Normal sinus rhythm rate of 99. Nonspecific ST and T wave normality. QTc 444. Code Status & VTE Plan VTE Prophylaxis Plan VTE Prophylaxis will be ordered: Yes
[2025-03-18 06:58] LABS: Hematocrit (blood only) 21.1 % (37.0-47.0); Hemoglobin 6.2 g/dl (12.0-16.0); Mean Corpuscular Hemoglobin 30.4 pg (25.0-34.0); Mean Corpuscular Volume 103.4 fL (80.0-100.0); Platelet Count 48 K/uL (130-400); RDW Standard Deviation 83.5 fL (36.4-46.3); Red Blood Count 2.04 M/uL (4.20-5.40); White Blood Count 2.27 K/ul (4.8-10.8)
[2025-03-18] MEDS ORDERED: SODIUM CHLORIDE 0.9% 100 ML IV PRN (07:01)
[2025-03-18 07:18] LABS: Anisocytosis Present; Immature Granulocytes # (auto) 0.09 K/uL (0.01-0.20); Immature Granulocytes % (auto) 4.0 %; Polychromasia 1+
[2025-03-18 07:21] LABS: Anion Gap 5.0 (3-11); Bilirubin,Total 13.3 mg/dl (0.2-1.0); Calcium 8.0 mg/dl (8.6-10.3); Carbon Dioxide 19.0 mmol/L (21-32); Chloride 114.0 mmol/L (98-107); Magnesium 2.1 mg/dl (1.7-2.4); Potassium 4.5 mmol/L (3.5-5.1); Sodium 138.0 mmol/L (136-145)
[2025-03-18 07:27] LABS: INR 1.2 (0.9-1.1); Prothrombin Time 12.7 Seconds (9.0-12.0)
[2025-03-18 07:28] LABS: Alanine Aminotransferase 15.0 U/L (7-52); Alkaline Phosphatase 84.0 U/L (34-104); Blood Urea Nitrogen 18.0 mg/dl (6-23); Creatinine Clr Calc Pharmacy 61.3 ml/min; Glucose 121.0 mg/dl (70-99(Fasting)); Total Protein 4.9 gm/dl (6.0-8.3)
[2025-03-18] MEDS: ICU ELECTROLYTE REPLACEMENT PROTOCOL SCH (07:31)
--- NOTE | 2025-03-18 07:35 | Gastrointestinal Consultation ---
Date of Consultation March 18, 2025 Assessment & Plan (1) Gastrointestinal hemorrhage, unspecified: Clinical picture consistent with upper GI bleed. In light of recent endoscopy unlikely due to portal hypertension such as varices or portal gastropathy. However in light of recent NSAID use need to consider peptic ulcer disease or NSAID gastropathy. Will proceed with upper endoscopy. Continue IV PPI drip and octreotide until endoscopy is completed. (2) Chronic liver disease: Etiology unclear either autoimmune or MAFLD. No signs of significant hepatic decompensation at the present time. History of Present Illness Reason for Consultation: GI bleed Attending Physician: Ghulam Valencia MD History of Present Illness Patient presents with a 1 day history of hematemesis and melena. Several weeks ago she had a similar episode. Endoscopy at that time showed no significant varices but a vascular abnormality which was clipped and cauterized. 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 She has been seen at [facility] had a liver biopsy which did not show cirrhosis but did show some chronic inflammation and fibrosis. She reports taking naproxen recently. She has multiple medical issues including significant cardiac disease. Pulmonary hypertension, chronic heart failure, possible celiac disease, anemia, thrombocytopenia, pancytopenia, Allergies Allergy/AdvReac Type Severity Reaction Status Date / Time No Known Allergies Allergy Verified 08/05/23 22:23 Home Medications Medication Instructions Recorded Confirmed Type atorvastatin 20 mg tablet 20 mg PO DAILY 03/17/25 03/17/25 History furosemide 40 mg tablet 40 mg PO DAILY 03/17/25 03/17/25 History iron,carbonyl 65 mg-vitamin C 125 1 tab PO DAILY 03/17/25 03/17/25 History mg tablet,delayed release (Vitron-C) lactulose 10 gram/15 mL oral 30 ml PO TID 03/17/25 03/17/25 History solution (Constulose) macitentan 10 mg tablet (Opsumit) 10 mg PO DAILY 03/17/25 03/17/25 History potassium chloride 10 mEq 30 meq PO DAILY 03/17/25 03/17/25 History tablet,extended release sildenafil (pulm.hypertension) 20 20 mg PO TID 03/17/25 03/17/25 History mg tablet Patient History Medical History (Updated 03/18/25 @ 07:49 by Maged Bernardo MD) Anxiety URI, acute Abnormal ECG SOB (shortness of breath) on exertion Elevated troponin I level Abnormal EKG Chest pain COVID-19 Encounter for pre-operative examination Cough Vertigo Pneumonia Tobacco abuse Pulmonary nodules Anemia Elevated bilirubin Right heart failure due to pulmonary hypertension Cirrhosis Pulmonary hypertension F/U WITH PULM MEDICINE AT [facility]- DR CRUZ DUMONT AND DR CAREY ([facility]) Surgical History (Updated 03/17/25 @ 22:12 by WINSTON Gr) History of tubal ligation History of D&C Nausea and vomiting after administration of anesthetic agent Family History Mother Coronary heart disease CABG in 70s Alzheimer disease Father Coronary heart disease CABG in 70s Family history of diabetes mellitus Brother Family history of diabetes mellitus Other Hypertension Myocardial infarction Social History Smoking Status: Never smoker packs per day: 10; Second Hand Exposure: No; Do You Dip or Chew Tobacco: No; Tobacco Cessation Education Requested by Patient: No Hx Alcohol Use: No Hx Substance Use: No Preferred Language: Iraqi Communication Ability: Effective 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: No Beliefs That Will Affect Care: None marital status: Current Living Situation: Family Current Living Situation Comment: Lives with daughter Other Information That Helps Us Care for You: No Feels Safe at Home: Yes Safety Concerns: Feels Safe At This Time Assistive Devices: None Review of Systems Review of Systems: No fever No chills No SOB No CP No Abd pain Physical Exam Physical Exam: Eyes; icteric HENT No masses Chest clear to A Cor S1, S2 physiologic Abd: softer nontender no masses Ext no edema Results & Data Vital Signs (Past 12 Hours) Vital Signs Temp Pulse Pulse Resp BP BP Pulse Ox 03/18/25 05:00 67 17 108/51 L 99 03/18/25 04:23 36.8 C 65 19 98/52 L 100 03/18/25 04:09 36.8 C 64 20 96/51 L 99 03/18/25 03:09 36.8 C 70 15 99/49 L 95 03/18/25 02:39 36.7 C 68 22 106/55 L 97 03/18/25 02:24 36.8 C 68 19 113/52 L 97 03/18/25 02:09 36.8 C 70 20 94/59 L 97 03/18/25 01:41 36.8 C 73 21 100/55 L 98 03/18/25 01:29 36.8 C 70 21 102/55 L 100 03/18/25 00:29 36.6 C 85 19 96/61 L 99 03/18/25 00:00 81 03/17/25 23:59 36.9 C 81 24 99/61 L 99 03/17/25 23:44 36.8 C 81 20 108/60 100 03/17/25 23:40 81 03/17/25 23:30 03/17/25 23:29 36.4 C L 82 22 123/66 100 03/17/25 23:26 36.4 C L 100 H 18 123/66 96 03/17/25 22:30 89 20 94/54 L 98 03/17/25 22:00 83 22 86/52 L 97 03/17/25 21:30 98 H 22 110/75 03/17/25 21:25 86 L 03/17/25 21:12 100 H 22 101/70 03/17/25 21:12 99 H 14 101/70 86 L 03/17/25 20:55 95 H 03/17/25 20:49 108 H 20 97 O2 Del Method O2 Flow Rate 03/18/25 05:00 Nasal Cannula 2 03/18/25 04:23 2 03/18/25 04:09 2 03/18/25 03:09 2 03/18/25 02:39 2 03/18/25 02:24 2 03/18/25 02:09 2 03/18/25 01:41 2 03/18/25 01:29 2 03/18/25 00:29 2 03/18/25 00:00 03/17/25 23:59 2 03/17/25 23:44 2 03/17/25 23:40 03/17/25 23:30 Nasal Cannula 2 03/17/25 23:29 03/17/25 23:26 Nasal Cannula 2 03/17/25 22:30 03/17/25 22:00 03/17/25 21:30 03/17/25 21:25 Room Air 0 03/17/25 21:12 03/17/25 21:12 Room Air 03/17/25 20:55 03/17/25 20:49 Room Air Laboratory Results Laboratory Results - last 48 hr 03/17/25 03/17/25 03/17/25 19:38 19:44 20:47 WBC 2.89 L RBC 1.66 L Hgb 5.0 L* Hct 16.9 L* MCV 101.8 H MCH 30.1 MCHC 29.6 L RDW Std Deviation 98.1 H RDW Coeff of Dalia 26.5 H Plt Count 58 L MPV 10.4 Immature Gran % (Auto) 2.4 Neut % (Auto) 65.1 Lymph % (Auto) 21.8 [place] % (Auto) 9.0 Eos % (Auto) 1.0 Baso % (Auto) 0.7 Neut # (Auto) 1.88 Lymph # (Auto) 0.63 L [place] # (Auto) 0.26 Eos # (Auto) 0.03 Baso # (Auto) 0.02 Immature Gran # (Auto) 0.07 Absolute Nucleated RBC 0.06 Nucleated RBC % (auto) 2.1 Polychromasia 2+ Anisocytosis Tear Drop Cells 1+ PT 12.6 H INR 1.2 H APTT 27 PTT Ratio 1.0 Fibrinogen Cancelled Sodium 138 Potassium 4.5 Chloride 111 H Carbon Dioxide 18 L Anion Gap 9 BUN 17 Creatinine 0.93 Est Cr Clr Drug Dosing 65.9 eGFR 69.49 BUN/Creatinine Ratio 18.3 Glucose 118 H POC Glucose Calcium 7.7 L Ionized Calcium Phosphorus Magnesium Total Bilirubin 12.3 H Direct Bilirubin AST 35 ALT 19 Alkaline Phosphatase 112 H Total Protein 6.0 Albumin 2.9 L Globulin 3.1 Albumin/Globulin Ratio 0.9 Lipase TNP Urine Color Dark Yellow Urine Appearance Clear Urine pH 6.0 Ur Specific [place] 1.010 Urine Protein Negative Urine Glucose (UA) Negative Urine Ketones Negative Urine Blood Negative Urine Nitrite Negative Urine Bilirubin Negative Urine Urobilinogen Negative Ur Leukocyte Esterase Trace H Urine WBC (Auto) 0-5 Urine RBC (Auto) 0-2 U Hyaline Cast (Auto) 0-2 U Epithel Cells (Auto) 0-2 Urine Bacteria (Auto) None Seen Urine Comment Nasal Screen MRSA (PCR) Blood Type B Positive Antibody Screen NEGATIVE Antibody Identification Cancelled Antibody ID Comment Cancelled Crossmatch See Detail 03/17/25 03/17/25 03/17/25 22:26 23:26 23:42 WBC RBC Hgb Hct MCV MCH MCHC RDW Std Deviation RDW Coeff of Dalia Plt Count MPV Immature Gran % (Auto) Neut % (Auto) Lymph % (Auto) [place] % (Auto) Eos % (Auto) Baso % (Auto) Neut # (Auto) Lymph # (Auto) [place] # (Auto) Eos # (Auto) Baso # (Auto) Immature Gran # (Auto) Absolute Nucleated RBC Nucleated RBC % (auto) Polychromasia Anisocytosis Tear Drop Cells PT INR APTT PTT Ratio Fibrinogen 189 Sodium Potassium Chloride Carbon Dioxide Anion Gap BUN Creatinine Est Cr Clr Drug Dosing eGFR BUN/Creatinine Ratio Glucose POC Glucose 114 H Calcium Ionized Calcium Phosphorus Magnesium Total Bilirubin Direct Bilirubin AST ALT Alkaline Phosphatase Total Protein Albumin Globulin Albumin/Globulin Ratio Lipase Urine Color Urine Appearance Urine pH Ur Specific [place] Urine Protein Urine Glucose (UA) Urine Ketones Urine Blood Urine Nitrite Urine Bilirubin Urine Urobilinogen Ur Leukocyte Esterase Urine WBC (Auto) Urine RBC (Auto) U Hyaline Cast (Auto) U Epithel Cells (Auto) Urine Bacteria (Auto) Urine Comment Nasal Screen MRSA (PCR) Negative Blood Type Antibody Screen Antibody Identification Antibody ID Comment Crossmatch 03/18/25 03/18/25 06:12 06:14 WBC 2.27 L RBC 2.04 L Hgb 6.2 L* Hct 21.1 L MCV 103.4 H MCH 30.4 MCHC 29.4 L RDW Std Deviation 83.5 H RDW Coeff of Dalia 23.4 H Plt Count 48 L MPV 10.1 Immature Gran % (Auto) 4.0 Neut % (Auto) 48.4 Lymph % (Auto) 34.8 [place] % (Auto) 8.8 Eos % (Auto) 3.1 Baso % (Auto) 0.9 Neut # (Auto) 1.10 L Lymph # (Auto) 0.79 L [place] # (Auto) 0.20 Eos # (Auto) 0.07 Baso # (Auto) 0.02 Immature Gran # (Auto) 0.09 Absolute Nucleated RBC 0.07 Nucleated RBC % (auto) 3.1 Polychromasia 1+ Anisocytosis Present Tear Drop Cells PT 12.7 H INR 1.2 H APTT PTT Ratio Fibrinogen Sodium 138 Potassium 4.5 Chloride 114 H Carbon Dioxide 19 L Anion Gap 5 BUN 18 Creatinine 1.04 Est Cr Clr Drug Dosing 61.3 eGFR 60.77 BUN/Creatinine Ratio 17.3 Glucose 121 H POC Glucose 137 H Calcium 8.0 L Ionized Calcium 1.24 Phosphorus 4.6 Magnesium 2.1 Total Bilirubin 13.3 H Direct Bilirubin 1.4 H AST 29 ALT 15 Alkaline Phosphatase 84 Total Protein 4.9 L D Albumin 2.5 L Globulin Albumin/Globulin Ratio Lipase Urine Color Urine Appearance Urine pH Ur Specific [place] Urine Protein Urine Glucose (UA) Urine Ketones Urine Blood Urine Nitrite Urine Bilirubin Urine Urobilinogen Ur Leukocyte Esterase Urine WBC (Auto) Urine RBC (Auto) U Hyaline Cast (Auto) U Epithel Cells (Auto) Urine Bacteria (Auto) Urine Comment Nasal Screen MRSA (PCR) Blood Type Antibody Screen Antibody Identification Antibody ID Comment Crossmatch Diagnostic Findings Abdomen/Pelvis CTA 03/17/25 20:33 Exam(s): CTA ABDOMEN + PELVIS With Contrast IV Amt: 119ml optiray 320 EXAM: CT Abdomen and Pelvis With Intravenous Contrast CLINICAL HISTORY: Reason for exam: UGIB. TECHNIQUE: Axial computed tomographic images of the abdomen and pelvis with intravenous contrast. CTDI is 20.19 mGy and DLP is 1045.73 mGy-cm. Automated exposure control was utilized for the study. A dose lowering technique was utilized adhering to the principles of ALARA. CONTRAST: Patient received 119ml optiray 320 of IV contrast COMPARISON: No relevant prior studies available. FINDINGS: VASCULATURE: Aorta: There are atherosclerotic changes. No abdominal aortic aneurysm. No dissection. Celiac trunk and mesenteric arteries: There is a mild to moderate stenosis noted the origin of the celiac axis. The origins of the SMA and LEEANNA are unremarkable. Renal arteries: No occlusion or significant stenosis. Iliac arteries: There are atherosclerotic changes. No occlusion or significant stenosis. Lung bases: No consolidation. ABDOMEN: Liver: The liver is enlarged. Gallbladder and bile ducts: There appear to be gallstones within the gallbladder. No ductal dilation. Pancreas: No ductal dilation. No mass. Spleen: The spleen is enlarged.. Adrenals: No mass. Kidneys and ureters: There are small bilateral renal calcifications. No hydronephrosis. There are rounded lucencies noted in the left kidney.. Stomach and bowel: There is a 2 cm linear radiopaque foreign body noted within the stomach. There seems to be some irregular thickening of the distal gastric wall with some enhancement. There is air and stool noted in the colon. No extravasated contrast is noted on this exam. PELVIS: Bladder: No calculi are noted within the bladder.. Reproductive: Unremarkable as visualized. ABDOMEN and PELVIS: Intraperitoneal space: There is a small amount of free fluid in the pelvis.. No free air. Bones/joints: There are degenerative changes in the spine. There is evidence for Schmorl's node formation at L3 and L4. There are degenerative changes in the hips.. Soft tissues: Unremarkable. Lymph nodes: No enlarged lymph nodes. IMPRESSION: No extravasated contrast is noted on this exam to suggest an area of active GI bleeding. There appears to be some irregular thickening of the distal gastric wall with enhancement. An underlying lesion cannot be excluded. For further evaluation, consider correlation with endoscopy or barium studies. There is a 2 cm linear radiopaque foreign body within the stomach. There are small bilateral renal calcifications without evidence of hydronephrosis. There are possible left renal cysts. Possible cholelithiasis. See discussion above Electronically signed by: Lucas Mckenzie MD 03/18/25 00:39 AM PG Care Time/CCT Total # of Minutes Spent Total Time Spent with Patient: Total time spent is greater than 50% in coordination of care (as documented) at patient's floor/unit and/or counseling patient: Coding Level of Care Code 27681 INT INP/OBS CARE 3/75MIN Diagnoses Gastrointestinal hemorrhage, unspecified K92.2 Chronic liver disease K76.9
--- NOTE | 2025-03-18 07:40 | Critical Care Progress Note ---
Date of Service March 18, 2025 Assessment & Plan (1) Acute blood loss anemia: (2) Gastrointestinal hemorrhage, unspecified: (3) Hyperbilirubinemia: (4) Thrombocytopenia: (5) Primary pulmonary hypertension: Plan Reason Critically Ill: 64 YOF with HX ANDREW Cirrhosis, thrombocytopenia, and hyperbilirubinemia, presents with hematemesis and HGB of 5.0. Patient to ICU for acute blood loss anemia on chronic anemia and presumed GI bleed unspecified following 2 episodes of reported hematemesis. Neuro - NO acute needs CAM ICU: NEGATIVE - Not encephalopathic currently Cardiac - acute blood loss anemia - Diurese as needed with hx of Rv failure and pulm HTN- currently on hold until hemodynamics proven stable Respiratory - No acute needs- Hx Primary pulm htn - continue sildenafil if unable to undergo EGD today GI -discussed with GI planned undergo EGD today, notes discussed unlikely to represent portal etiology - Discontinue octreotide - Continue PPI infusion - Continue n.p.o. until disposition further elucidated RENAL/LYTES- Non-gap metabolic acidosis, hypocalcemia - Resuscitate with blood products- follow organ perfusion labs - replete calcium now with gluconate 3GM in light of blood transfusion as well - NO acute needs ENDO - NO acute needs - ICU hyperglycemic protocol HEME - As above, pancytopenia - Consider peripheral smear - however has followed up with hemeonc in past for work up of pancytopenia - macrocytic anemia chronic ID - NO concern at this time for acute infective cause LINES/IV ACCESS - IV Continue use of these lines DVT PROPHYLAXIS - SCDS, hold chemoprophylaxis in the setting of likely acute blood loss from GI unspecified source DISPO: Possible transfer to tertiary center if able to perform urgent EGD. - Transfer center working to discuss case with [facility], would be reasonable to anticipate ground transfer and could go to [facility] if resources there in space are available Admission and Anticipated Discharge Date Admission Date: March 17, 2025 Supervising Physician Co-Signing Physician Notes I have personally spent 40 minutes of critical care time in the direct management of this patient. This is a life/limb threatening event. This includes time spent evaluating patient, direct bedside care, chart review, placing orders, interpretation of diagnostic studies, discussion with consultants, patient, and/or family members regarding treatment decisions, as well as other required patient management activities. This time is exclusive of all separately billable procedures, and teaching time and separate from and in addition to any other critical care service time. Subjective Discussed with GI the morning they were going to proceed with EGD over concerns of recent endoscopy and recent NSAID use to evaluate for peptic ulcer disease. Plan was to go to the operating room with anesthesia however anesthesia was able to safely perform sedation secondary to severe pulmonary hypertension and no rescue medications. Patient has not had recurrent episodes of hematemesis, she is receiving 1/3 unit of packed red blood cells given H&H less than 7. 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 She is agreeable with transfer to [facility] to facilitate ongoing diagnostic and possible therapeutic workup. Physical Exam Physical Exam: General: Alert. nontoxic. Skin: Warm, dry, Eyes: Mild scleral icterus Head: Atraumatic Ears, nose, mouth and throat: airway patent Cardiovascular: Normal peripheral perfusion Respiratory: no respiratory distress Gastrointestinal: Non distended Musculoskeletal: No deformity Results & Data Results & Data Vital Signs (Past 12 Hours) Vital Signs Temp Pulse Pulse Resp BP BP Pulse Ox 03/18/25 05:00 67 17 108/51 L 99 03/18/25 04:23 36.8 C 65 19 98/52 L 100 03/18/25 04:09 36.8 C 64 20 96/51 L 99 03/18/25 03:09 36.8 C 70 15 99/49 L 95 03/18/25 02:39 36.7 C 68 22 106/55 L 97 03/18/25 02:24 36.8 C 68 19 113/52 L 97 03/18/25 02:09 36.8 C 70 20 94/59 L 97 03/18/25 01:41 36.8 C 73 21 100/55 L 98 03/18/25 01:29 36.8 C 70 21 102/55 L 100 03/18/25 00:29 36.6 C 85 19 96/61 L 99 03/18/25 00:00 81 03/17/25 23:59 36.9 C 81 24 99/61 L 99 03/17/25 23:44 36.8 C 81 20 108/60 100 03/17/25 23:40 81 03/17/25 23:30 03/17/25 23:29 36.4 C L 82 22 123/66 100 03/17/25 23:26 36.4 C L 100 H 18 123/66 96 03/17/25 22:30 89 20 94/54 L 98 03/17/25 22:00 83 22 86/52 L 97 03/17/25 21:30 98 H 22 110/75 03/17/25 21:25 86 L 03/17/25 21:12 100 H 22 101/70 03/17/25 21:12 99 H 14 101/70 86 L 03/17/25 20:55 95 H 03/17/25 20:49 108 H 20 97 O2 Del Method O2 Flow Rate 03/18/25 05:00 Nasal Cannula 2 03/18/25 04:23 2 03/18/25 04:09 2 03/18/25 03:09 2 03/18/25 02:39 2 03/18/25 02:24 2 03/18/25 02:09 2 03/18/25 01:41 2 03/18/25 01:29 2 03/18/25 00:29 2 03/18/25 00:00 03/17/25 23:59 2 03/17/25 23:44 2 03/17/25 23:40 03/17/25 23:30 Nasal Cannula 2 03/17/25 23:29 03/17/25 23:26 Nasal Cannula 2 03/17/25 22:30 03/17/25 22:00 03/17/25 21:30 03/17/25 21:25 Room Air 0 03/17/25 21:12 03/17/25 21:12 Room Air 03/17/25 20:55 03/17/25 20:49 Room Air Critical Care Results & Data Vital Signs (Past 12 Hours) Vital Signs Temp Pulse Pulse Resp BP BP Pulse Ox 03/18/25 05:00 67 17 108/51 L 99 03/18/25 04:23 36.8 C 65 19 98/52 L 100 03/18/25 04:09 36.8 C 64 20 96/51 L 99 03/18/25 03:09 36.8 C 70 15 99/49 L 95 03/18/25 02:39 36.7 C 68 22 106/55 L 97 03/18/25 02:24 36.8 C 68 19 113/52 L 97 03/18/25 02:09 36.8 C 70 20 94/59 L 97 03/18/25 01:41 36.8 C 73 21 100/55 L 98 03/18/25 01:29 36.8 C 70 21 102/55 L 100 03/18/25 00:29 36.6 C 85 19 96/61 L 99 03/18/25 00:00 81 03/17/25 23:59 36.9 C 81 24 99/61 L 99 03/17/25 23:44 36.8 C 81 20 108/60 100 03/17/25 23:40 81 03/17/25 23:30 03/17/25 23:29 36.4 C L 82 22 123/66 100 03/17/25 23:26 36.4 C L 100 H 18 123/66 96 03/17/25 22:30 89 20 94/54 L 98 03/17/25 22:00 83 22 86/52 L 97 03/17/25 21:30 98 H 22 110/75 03/17/25 21:25 86 L 03/17/25 21:12 100 H 22 101/70 03/17/25 21:12 99 H 14 101/70 86 L 03/17/25 20:55 95 H 03/17/25 20:49 108 H 20 97 O2 Del Method O2 Flow Rate 03/18/25 05:00 Nasal Cannula 2 03/18/25 04:23 2 03/18/25 04:09 2 03/18/25 03:09 2 03/18/25 02:39 2 03/18/25 02:24 2 03/18/25 02:09 2 03/18/25 01:41 2 03/18/25 01:29 2 03/18/25 00:29 2 03/18/25 00:00 03/17/25 23:59 2 03/17/25 23:44 2 03/17/25 23:40 03/17/25 23:30 Nasal Cannula 2 03/17/25 23:29 03/17/25 23:26 Nasal Cannula 2 03/17/25 22:30 03/17/25 22:00 03/17/25 21:30 03/17/25 21:25 Room Air 0 03/17/25 21:12 03/17/25 21:12 Room Air 03/17/25 20:55 03/17/25 20:49 Room Air Lab & Micro Results (Past 24 Hours) RBC 2.04 M/uL (4.20-5.40) L 03/18/25 WBC 2.27 K/ul (4.8-10.8) L 03/18/25 Hgb 6.2 g/dl (12.0-16.0) L* 03/18/25 Hct 21.1 % (37.0-47.0) L 03/18/25 MCV 103.4 fL (80.0-100.0) H 03/18/25 MCH 30.4 pg (25.0-34.0) 03/18/25 MCHC 29.4 g/dL (32.0-36.0) L 03/18/25 RDW Standard Deviation 83.5 fL (36.4-46.3) H 03/18/25 RDW Coefficient of Variation 23.4 % (11.5-14.5) H 03/18/25 Plt Count 48 K/uL (130-400) L 03/18/25 MPV 10.1 fL (9.4-12.4) 03/18/25 Nucleated Red Blood Cells % (auto) 3.1 % 03/18 Nucleated RBC Absolute Count (auto) 0.07 K/uL (0.00-0.12) 0 03/18/25 Neutrophils (%) (Auto) 48.4 % 03/18/25 Lymphocytes (%) (Auto) 34.8 % 03/18/25 Monocytes # (Auto) 0.20 K/uL (0.11-0.59) 03/18/25 Eosinophils # (Auto) 0.07 K/uL (0.00-0.50) 03/18/25 Immature Granulocyte % (Auto) 4.0 % 03/18/25 Neutrophils # (Auto) 1.10 K/uL (1.40-6.50) L 03/18/25 Lymphocytes # (Auto) 0.79 K/uL (1.20-3.40) L 03/18/25 Monocytes # (Auto) 0.20 K/uL (0.11-0.59) 03/18/25 Eosinophils # (Auto) 0.07 K/uL (0.00-0.50) 03/18/25 Basophils # (Auto) 0.02 K/uL (0.00-0.20) 03/18/25 Immature Granulocyte # (Auto) 0.09 K/uL (0.01-0.20) 5 Polychromasia 1+ 03/18/25 Anisocytosis Present 03/18/25 Tear Drop Cells 1+ 03/17/25 Na 138 mmol/L (136-145) 03/18/25 K 4.5 mmol/L (3.5-5.1) 03/18/25 Cl 114 mmol/L (98-107) H 03/18/25 CO2 19 mmol/L (21-32) L 03/18/25 Anion Gap 5 (3-11) 03/18/25 BUN 18 mg/dl (6-23) 03/18/25 Creatinine 1.04 mg/dl (0.6-1.2) 03/18/25 BUN/Creatinine Ratio 17.3 (10-20) 03/18/25 Glu 121 mg/dl (70-99(Fasting)) H 03/18/25 Ca 8.0 mg/dl (8.6-10.3) L 03/18/25 Phosphorus Level 4.6 mg/dl (2.5-4.9) 03/18/25 Total Bilirubin 13.3 mg/dl (0.2-1.0) H 03/18/25 Direct Bilirubin 1.4 mg/dl (0-0.2) H 03/18/25 AST 29 U/L (13-39) 03/18/25 ALT 15 U/L (7-52) 03/18/25 Alkaline Phosphatase 84 U/L (34-104) 03/18/25 TP 4.9 gm/dl (6.0-8.3) L 03/18/25 Albumin 2.5 gm/dl (3.4-5.0) L 03/18/25 Globulin 3.1 gm/dl (2.5-4.0) 03/17/25 Albumin/Globulin Ratio 0.9 (0.9-2) 03/17/25 Mg 2.1 mg/dl (1.7-2.4) 03/18/25 06:14 Calcium Level 8.0 mg/dl (8.6-10.3) L 03/18/25 06:14 Ionized Calcium 1.24 mmol/L (1.12-1.32) 03/18/25 06:14 Prothromb Time International Ratio 1.2 (0.9-1.1) H 03/18/25 06 :14 Diagnostic Findings (Past 24 Hours) Abdomen/Pelvis CTA 03/17/25 20:33 Exam(s): CTA ABDOMEN + PELVIS With Contrast IV Amt: 119ml optiray 320 EXAM: CT Abdomen and Pelvis With Intravenous Contrast CLINICAL HISTORY: Reason for exam: UGIB. TECHNIQUE: Axial computed tomographic images of the abdomen and pelvis with intravenous contrast. CTDI is 20.19 mGy and DLP is 1045.73 mGy-cm. Automated exposure control was utilized for the study. A dose lowering technique was utilized adhering to the principles of ALARA. CONTRAST: Patient received 119ml optiray 320 of IV contrast COMPARISON: No relevant prior studies available. FINDINGS: VASCULATURE: Aorta: There are atherosclerotic changes. No abdominal aortic aneurysm. No dissection. Celiac trunk and mesenteric arteries: There is a mild to moderate stenosis noted the origin of the celiac axis. The origins of the SMA and LEEANNA are unremarkable. Renal arteries: No occlusion or significant stenosis. Iliac arteries: There are atherosclerotic changes. No occlusion or significant stenosis. Lung bases: No consolidation. ABDOMEN: Liver: The liver is enlarged. Gallbladder and bile ducts: There appear to be gallstones within the gallbladder. No ductal dilation. Pancreas: No ductal dilation. No mass. Spleen: The spleen is enlarged.. Adrenals: No mass. Kidneys and ureters: There are small bilateral renal calcifications. No hydronephrosis. There are rounded lucencies noted in the left kidney.. Stomach and bowel: There is a 2 cm linear radiopaque foreign body noted within the stomach. There seems to be some irregular thickening of the distal gastric wall with some enhancement. There is air and stool noted in the colon. No extravasated contrast is noted on this exam. PELVIS: Bladder: No calculi are noted within the bladder.. Reproductive: Unremarkable as visualized. ABDOMEN and PELVIS: Intraperitoneal space: There is a small amount of free fluid in the pelvis.. No free air. Bones/joints: There are degenerative changes in the spine. There is evidence for Schmorl's node formation at L3 and L4. There are degenerative changes in the hips.. Soft tissues: Unremarkable. Lymph nodes: No enlarged lymph nodes. IMPRESSION: No extravasated contrast is noted on this exam to suggest an area of active GI bleeding. There appears to be some irregular thickening of the distal gastric wall with enhancement. An underlying lesion cannot be excluded. For further evaluation, consider correlation with endoscopy or barium studies. There is a 2 cm linear radiopaque foreign body within the stomach. There are small bilateral renal calcifications without evidence of hydronephrosis. There are possible left renal cysts. Possible cholelithiasis. See discussion above Electronically signed by: Lucas Mckenzie MD 03/18/25 00:39 AM I & O Totals 24 Hours 03/17/25 03/18/25 03/19/25 06:59 06:59 06:59 Intake Total 1020 / 1020 197.802 / 197.802 Output Total 1000 / 1000 Balance 197.802 / 197.802 Cumulative 03/17/25 19:17 thru 03/18/25 07:25 Intake Total 1217.802 Output Total 1000 Balance 217.802 RT Ventilator Mngmt (Last Documented) Ventilator Ordered Settings Respiratory Rate 17 03/18/25 05:00 Ventilator - PT Measurements Respiratory Rate 17 Coding Level of Care Code 60059 CRITICAL CARE 1ST 30-74M Diagnoses Acute blood loss anemia D62 Gastrointestinal hemorrhage, unspecified K92.2 Hyperbilirubinemia E80.6 Thrombocytopenia D69.6 Primary pulmonary hypertension I27.0
[2025-03-18] MEDS ORDERED: NON-FORMULARY MEDICATION (Iron,Carbonyl-Vitamin C [Vitron-C] 65 mg iron- 125 mg Tablet,Del PO SCH (09:00)
[2025-03-18] MEDS: STAT IV/IM STA (10:05)
[2025-03-18] MEDS: ATORVASTATIN 20 MG TAB PO SCH (10:05)
[2025-03-18] MEDS: FERROUS SULFATE 325 MG TAB PO SCH (10:05)
[2025-03-18] MEDS: ASCORBIC ACID 500 MG TAB PO SCH (10:05)
--- NOTE | 2025-03-18 11:02 | Communication Note ---
Date of Service: March 18, 2025 pt has severe pulmonary htn. we are unable to do anesthesia on patients with severe pulmonary htn because we do not have the necessary medicines to treat it
[2025-03-18 11:54] LABS: Hematocrit (blood only) 22.1 % (37.0-47.0); Hemoglobin 7.1 g/dl (12.0-16.0); Mean Corpuscular Hemoglobin 30.5 pg (25.0-34.0); Mean Corpuscular Volume 94.8 fL (80.0-100.0); Platelet Count 43 K/uL (130-400); RDW Standard Deviation 71.3 fL (36.4-46.3); Red Blood Count 2.33 M/uL (4.20-5.40); White Blood Count 2.33 K/ul (4.8-10.8)
[2025-03-18 12:01] LABS: Anisocytosis Present; Immature Granulocytes # (auto) 0.09 K/uL (0.01-0.20); Immature Granulocytes % (auto) 3.9 %; Ovalocytes 1+; Polychromasia 1+; Tear Drop Cells 1+
--- NOTE | 2025-03-18 12:13 | Hospitalist Progress Note ---
Date of Service March 18, 2025 Assessment & Plan (1) Acute blood loss anemia: Plan: 64-year-old female with past medical significant for nocturnal hypoxemia, severe pulmonary hypertension, chronic heart failure with preserved ejection fraction, right heart failure, unspecified cirrhosis of liver, celiac disease, inflammatory polyarthropathy, anemia, thrombocytopenia, pancytopenia, tobacco abuse in remission, GENI positive, jaundice, abnormal LFTs who lives with her daughter was brought in because of melena and hematemesis. Acute blood loss anemia Melena and hematemesis Upper GI bleed Hemoglobin 5 on admission History of liver cirrhosis Received 3 units of packed RBC so far with repeat hemoglobin of 7.1. CTA abdomen and pelvis no active bleeding seen. 2 cm linear radiopaque foreign body within the stomach(possibly clips?). Possible cholelithiasis Continue on Protonix and octreotide drip On prophylactic ceftriaxone GI consulted; anesthesia recommended transfer to tertiary care center given severe pulmonary hypertension. Discussed with both GI and anesthesia. Transfer center coordinating the transfer. Liver cirrhosis unspecified Hyperbilirubinemia total bilirubin 12.3. Seems chronic elevation Restart diuretics when stable Restart lactulose when able to take Follows with GI Pulmonary hypertension On Opsumit and sildenafil Restart when able to take PO Hyperlipidemia On statin. Currently patient hold, restart when able to take PO History of right-sided heart failure and chronic heart failure with preserved ejection fraction Severe TR Monitor for volume overload Pancytopenia WBC 2.8. Hemoglobin 5. Platelets 58 Follows with heme-onc and GI Monitor Celiac disease Gluten-free diet DVT prophylaxis SCDs Disposition ICU FUll code Time spent evaluating patient, direct bedside care, chart review, placing orders, interpretation of diagnostic studies, discussion with consultants, patient, and family members, as well as other required patient management activities is 50 minutes Please note the above document was generated using voice recognition software. It may contain grammatical, syntax or spelling errors. Any formal questions or concerns about the content, text or information contained within the body of this dictation should be directly addressed to the provider for clarification Admission and Anticipated Discharge Date Admission Date: March 17, 2025 Subjective Patient seen and examined at bedside. She is receiving packed RBC. She denies any pain or discomfort. No episode of vomiting since admission. No significant events overnight Review of Systems Review of Systems: All systems reviewed & are unremarkable except as noted in Subjective Physical Exam Physical Exam: General- Not in acute distress Head- atraumatic Eyes- PERRL, icterus present ENT- oropharynx clear Neck- supple, no JVD, no carotid bruit Lungs- clear to auscultation no wheezing or crackles Heart- regular rhythm; murmur in tricuspid area, no gallop. Abdomen- normal bowel sounds, soft, nontender, no distension Extremities- b/l lower extremity skin changes seen with mild edema Neuro- alert, oriented PERRL, no facial palsy; no dysarthria; moves extremities Results & Data Results & Data Vital Signs (Past 12 Hours) Vital Signs Temp Pulse Resp BP Pulse Ox O2 Del Method O2 Flow Rate 03/18/25 10:30 97/54 L 03/18/25 10:24 67 19 92 03/18/25 10:04 36.7 C 63 16 107/61 97 03/18/25 10:00 107/61 03/18/25 10:00 69 19 97 03/18/25 09:56 Nasal Cannula 2 03/18/25 09:40 36.7 C 68 18 123/64 97 2 03/18/25 08:40 36.8 C 66 18 90/48 L 99 2 03/18/25 08:10 36.9 C 63 20 94/50 L 96 2 03/18/25 07:58 Nasal Cannula 03/18/25 07:55 36.9 C 65 20 95/52 L 96 2 03/18/25 07:37 36.7 C 61 14 115/84 98 2 03/18/25 06:55 74 03/18/25 05:00 67 17 108/51 L 99 Nasal Cannula 2 03/18/25 04:23 36.8 C 65 19 98/52 L 100 2 03/18/25 04:09 36.8 C 64 20 96/51 L 99 2 03/18/25 03:09 36.8 C 70 15 99/49 L 95 2 03/18/25 02:39 36.7 C 68 22 106/55 L 97 2 03/18/25 02:24 36.8 C 68 19 113/52 L 97 2 03/18/25 02:09 36.8 C 70 20 94/59 L 97 2 03/18/25 01:41 36.8 C 73 21 100/55 L 98 2 03/18/25 01:29 36.8 C 70 21 102/55 L 100 2 03/18/25 00:29 36.6 C 85 19 96/61 L 99 2
--- NOTE | 2025-03-18 13:29 | Discharge Summary ---
Date of Service March 18, 2025 Admission HPI Per Admitting Provider 64-year-old female with past medical significant for nocturnal hypoxemia, severe pulmonary hypertension, chronic heart failure with preserved ejection fraction, right heart failure, unspecified cirrhosis of liver, celiac disease, inflammatory polyarthropathy, anemia, thrombocytopenia, pancytopenia, tobacco abuse in remission, GENI positive, jaundice, abnormal LFTs who lives with her daughter was brought in because of melena and hematemesis. Patient says since last couple of days she is having melena. And today she was vomiting some blood clots. Patient states in December she had a lot of hematemesis and she was in [facility]. Patient states she had EGD and colonoscopy at [facility] and were unremarkable as per patient. Denies any headache. Denies dizziness. No runny nose or sore throat. No cough. No fevers. No difficulty swallowing. Has some shortness of breath. Denies chest pain. Hemodynamics are okay. Conversing okay. Daughter is in the room. In November 2023 patient was admitted to [facility] for acute hypoxemic respiratory failure thought to be from acute right heart failure in the setting of pulmonary hypertension and she was transferred to [place] for IV prostacyclin. At [place] she was treated for cardiogenic shock with right heart failure in the setting of severe pulmonary hypertension. 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 At [place] she was admitted to ICU and [place] was placed and started on inhaled Flolan and diuresis and vasopressor support. Underwent diuresis to net negative 24.4 L. As patient found to have elevated LFTs and concern for cirrhosis GI was consulted and suspected congestive hepatopathy in setting of severe pulm hypertension and possible autoimmune hepatitis. Also found to have lytic bone lesion on CAT scan suspicious for malignancy. Hematology oncology consulted but bone scan was negative. Patient currently on sildenafil and macitentan for pulmonary hypertension. ASMA, AMA and TTG IgA were all elevated concerning for celiac disease and autoimmune liver disease. Patient initially did not had liver biopsy but had biopsy done on 03/01/2024 which only showed mild lobular and portal inflammation and portal and focal periportal fibrosis. Patient had upper endoscopy on 03/01/2024 and found to have single medium angioectasia with bleeding in the gastric body. Vaporization for hemostasis using argon plasma was successful. To prevent bleeding postintervention 3 hemostatic clips were successfully placed(MR conditional). Patient is also following with heme-onc for anemia and as per heme-onc notes from January 2025 anemia most likely multifactorial including chronic disease, liver cirrhosis and medication, nutritional and hypersplenism and chronic inflammation and possible GI bleeding from esophageal and gastric varices. Per EGD on 03/01/2024 examined esophagus was normal. Past medical history. As mentioned above. Past surgical history. DNC after delivery. EGD with endoscopic ultrasound. Ligation oviducts. Right heart catheterization. Social history. . Quit smoking 2018. Smoked 1 pack a day for 38 years. No alcohol use. No drug use. Family history. Mother had Alzheimer's disease. Asthma. CABG. Father had diabetes. Bypass. Hypertension. Stroke. Brother had diabetes. Admission Exam Per Admitting Provider General- Not in acute distress Head- atraumatic Eyes- PERRL, icterus present ENT- oropharynx clear Neck- supple, no JVD, no carotid bruit Lungs- clear to auscultation no wheezing or crackles Heart- regular rhythm; murmur in tricuspid area, no gallop. Abdomen- normal bowel sounds, soft, nontender, no distension Extremities- b/l lower extremity skin changes seen with mild edema Neuro- alert, oriented PERRL, no facial palsy; no dysarthria; moves extremities Principal Diagnosis Upper GI bleed Discharge Exam General- Not in acute distress Head- atraumatic Eyes- PERRL, icterus present ENT- oropharynx clear Neck- supple, no JVD, no carotid bruit Lungs- clear to auscultation no wheezing or crackles Heart- regular rhythm; murmur in tricuspid area, no gallop. Abdomen- normal bowel sounds, soft, nontender, no distension Extremities- b/l lower extremity skin changes seen with mild edema Neuro- alert, oriented PERRL, no facial palsy; no dysarthria; moves extremities Discharge Data Allergies Allergy/AdvReac Type Severity Reaction Status Date / Time gluten Allergy Unknown Uncoded 03/18/25 08:30 Consultations 03/17/25 21:00 ED Decision to Admit Stat 03/17/25 23:26 Consult Gastroenterology Routine Consult Warehouse Team Member Routine 03/18/25 13:05 Burn CD for patient Stat Ordered Studies 03/17/25 20:33 CT angio abdomen pelvis w con Stat Hospital Course (1) Acute blood loss anemia: 64-year-old female with past medical significant for nocturnal hypoxemia, severe pulmonary hypertension, chronic heart failure with preserved ejection fraction, right heart failure, unspecified cirrhosis of liver, celiac disease, inflammatory polyarthropathy, anemia, thrombocytopenia, pancytopenia, tobacco abuse in remission, GENI positive, jaundice, abnormal LFTs who lives with her daughter was brought in because of melena and hematemesis. Acute blood loss anemia Melena and hematemesis Upper GI bleed Hemoglobin 5 on admission History of liver cirrhosis Received 3 units of packed RBC so far with repeat hemoglobin of 7.1. CTA abdomen and pelvis no active bleeding seen. 2 cm linear radiopaque foreign body within the stomach(possibly clips?). Possible cholelithiasis Continue on Protonix and octreotide drip On prophylactic ceftriaxone GI consulted; anesthesia recommended transfer to tertiary [facility] given severe pulmonary hypertension. Discussed with both GI and anesthesia. Patient accepted at [facility] Liver cirrhosis unspecified Hyperbilirubinemia total bilirubin 12.3. Seems chronic elevation Restart diuretics when stable Restart lactulose when able to take Follows with GI Pulmonary hypertension On Opsumit and sildenafil Restart when able to take PO Hyperlipidemia On statin. Currently patient hold, restart when able to take PO History of right-sided heart failure and chronic heart failure with preserved ejection fraction Severe TR Monitor for volume overload Pancytopenia WBC 2.8. Hemoglobin 5. Platelets 58 Follows with heme-onc and GI Monitor Celiac disease Gluten-free diet DVT prophylaxis SCDs Disposition [facility] FUll code Time spent evaluating patient, direct bedside care, chart review, placing ord ers, interpretation of diagnostic studies, discussion with consultants, patient, and family members, as well as other required patient management activities is 50 minutes Please note the above document was generated using voice recognition software. It may contain grammatical, syntax or spelling errors. Any formal questions or concerns about the content, text or information contained within the body of this dictation should be directly addressed to the provider for clarification Discharge Plan Discharge Items Patient Disposition: Transfer Acute Care Hospital Reason For Visit: GI BLEED Discharge Diagnosis: Upper GI bleed Activity: Resume your previous activity Non-emergency contact: Primary Care Provider Call non-emergency contact if: you have any medication questions and your symptoms worsen Follow-up/Referrals: Sarah Galaviz, DO [Primary Care Provider] - Diet: Regular Pending Studies at Discharge: No Stand-Alone Forms: My [facility] Skilled Items Patient informed of condition?: Yes DNR: No Discharge Level of Care: Other Communicable Disease: No Discharge Prognosis: Stable Lines: Peripheral IV Urinary Catheter: No Medications and DC Order Prescriptions: Continued furosemide 40 mg tablet 40 mg PO DAILY atorvastatin 20 mg tablet 20 mg PO DAILY potassium chloride 10 mEq tablet extended release 30 meq PO DAILY lactulose [Constulose] 10 gram/15 mL solution 30 ml PO TID sildenafil (pulm.hypertension) 20 mg tablet 20 mg PO TID Opsumit 10 mg tablet 10 mg PO DAILY Vitron-C 65 mg iron- 125 mg Tablet,Delayed Release (Dr/Ec) 1 tab PO DAILY Discharge Orders: Discharge Order (Routine); Ordered 03/18/25 Ordered By: Ghulam Valencia Admission Data Admit Date/Time: 03/17/25 22:10 Attending Provider: Ghulam Valencia Admit Provider: Kuldip Arce Primary Care Provider: Sarah Galaviz Other Providers: Kuldip Arce; Nader Bethea; Clarke Caceres
[2025-03-18] MEDS: cefTRIAXone SODIUM 2,000 MG/50 ML BAG IV SCH (14:22)
[2025-03-18 17:33] LABS: Hematocrit (blood only) 24.5 % (37.0-47.0); Hemoglobin 7.7 g/dl (12.0-16.0)
[2025-03-18] MEDS: D5W AND 1/2NSS 1,000 ML IV SCH (17:37)
[2025-03-18 23:20] LABS: Hematocrit (blood only) 25.4 % (37.0-47.0); Hemoglobin 8.1 g/dl (12.0-16.0)
[2025-03-19 05:14] LABS: Alanine Aminotransferase 17.0 U/L (7-52); Alkaline Phosphatase 75.0 U/L (34-104); Anion Gap 6.0 (3-11); Bilirubin,Total 15.4 mg/dl (0.2-1.0); Blood Urea Nitrogen 15.0 mg/dl (6-23); Calcium 7.2 mg/dl (8.6-10.3); Carbon Dioxide 21.0 mmol/L (21-32); Chloride 114.0 mmol/L (98-107); Creatinine Clr Calc Pharmacy 52.0 ml/min; Glucose 128.0 mg/dl (70-99(Fasting)); Magnesium 2.1 mg/dl (1.7-2.4); Potassium 3.5 mmol/L (3.5-5.1); Sodium 141.0 mmol/L (136-145); Total Protein 4.9 gm/dl (6.0-8.3)
[2025-03-19 05:16] LABS: Hematocrit (blood only) 21.0 % (37.0-47.0); Hemoglobin 6.6 g/dl (12.0-16.0); Mean Corpuscular Hemoglobin 30.0 pg (25.0-34.0); Mean Corpuscular Volume 95.5 fL (80.0-100.0); Platelet Count 37 K/uL (130-400); RDW Standard Deviation 75.5 fL (36.4-46.3); Red Blood Count 2.20 M/uL (4.20-5.40); White Blood Count 1.98 K/ul (4.8-10.8)
[2025-03-19] MEDS ORDERED: SODIUM CHLORIDE 0.9% 100 ML IV PRN (05:17)
[2025-03-19] MEDS: POTASSIUM CHLORIDE / WTR 10 MEQ/100 ML PLCT IV SCH (05:31)
[2025-03-19 05:35] LABS: Anisocytosis Present; Immature Granulocytes # (auto) 0.05 K/uL (0.01-0.20); Immature Granulocytes % (auto) 2.5 %; Polychromasia 2+
[2025-03-19 06:19] VITALS: TEMP 98.2
[2025-03-19 07:02] VITALS: RESP 20; O2SAT 97
[2025-03-19] MEDS: ONDANSETRON INJ 2 MG/ML 2 ML VIAL IV PRN (07:29)
[2025-03-19 10:17] VITALS: BP 130/71; PULSE 63
--- NOTE | 2025-03-19 10:49 | Discharge Summary ---
Date of Service March 19, 2025 Admission HPI Per Admitting Provider 64-year-old female with past medical significant for nocturnal hypoxemia, severe pulmonary hypertension, chronic heart failure with preserved ejection fraction, right heart failure, unspecified cirrhosis of liver, celiac disease, inflammatory polyarthropathy, anemia, thrombocytopenia, pancytopenia, tobacco abuse in remission, GENI positive, jaundice, abnormal LFTs who lives with her daughter was brought in because of melena and hematemesis. Patient says since last couple of days she is having melena. And today she was vomiting some blood clots. Patient states in December she had a lot of hematemesis and she was in [facility]. Patient states she had EGD and colonoscopy at [facility] and were unremarkable as per patient. Denies any headache. Denies dizziness. No runny nose or sore throat. No cough. No fevers. No difficulty swallowing. Has some shortness of breath. Denies chest pain. Hemodynamics are okay. Conversing okay. Daughter is in the room. In November 2023 patient was admitted to [facility] for acute hypoxemic respiratory failure thought to be from acute right heart failure in the setting of pulmonary hypertension and she was transferred to [place] for IV prostacyclin. At [place] she was treated for cardiogenic shock with right heart failure in the setting of severe pulmonary hypertension. 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 At [place] she was admitted to ICU and [place] was placed and started on inhaled Flolan and diuresis and vasopressor support. Underwent diuresis to net negative 24.4 L. As patient found to have elevated LFTs and concern for cirrhosis GI was consulted and suspected congestive hepatopathy in setting of severe pulm hypertension and possible autoimmune hepatitis. Also found to have lytic bone lesion on CAT scan suspicious for malignancy. Hematology oncology consulted but bone scan was negative. Patient currently on sildenafil and macitentan for pulmonary hypertension. ASMA, AMA and TTG IgA were all elevated concerning for celiac disease and autoimmune liver disease. Patient initially did not had liver biopsy but had biopsy done on 03/01/2024 which only showed mild lobular and portal inflammation and portal and focal periportal fibrosis. Patient had upper endoscopy on 03/01/2024 and found to have single medium angioectasia with bleeding in the gastric body. Vaporization for hemostasis using argon plasma was successful. To prevent bleeding postintervention 3 hemostatic clips were successfully placed(MR conditional). Patient is also following with heme-onc for anemia and as per heme-onc notes from January 2025 anemia most likely multifactorial including chronic disease, liver cirrhosis and medication, nutritional and hypersplenism and chronic inflammation and possible GI bleeding from esophageal and gastric varices. Per EGD on 03/01/2024 examined esophagus was normal. Past medical history. As mentioned above. Past surgical history. DNC after delivery. EGD with endoscopic ultrasound. Ligation oviducts. Right heart catheterization. Social history. . Quit smoking 2018. Smoked 1 pack a day for 38 years. No alcohol use. No drug use. Family history. Mother had Alzheimer's disease. Asthma. CABG. Father had diabetes. Bypass. Hypertension. Stroke. Brother had diabetes. Admission Exam Per Admitting Provider General- Not in acute distress Head- atraumatic Eyes- PERRL, icterus present ENT- oropharynx clear Neck- supple, no JVD, no carotid bruit Lungs- clear to auscultation no wheezing or crackles Heart- regular rhythm; murmur in tricuspid area, no gallop. Abdomen- normal bowel sounds, soft, nontender, no distension Extremities- b/l lower extremity skin changes seen with mild edema Neuro- alert, oriented PERRL, no facial palsy; no dysarthria; moves extremities Principal Diagnosis Upper GI bleed Discharge Exam General- Not in acute distress Head- atraumatic Eyes- PERRL, icterus present ENT- oropharynx clear Neck- supple, no JVD, no carotid bruit Lungs- clear to auscultation no wheezing or crackles Heart- regular rhythm; murmur in tricuspid area, no gallop. Abdomen- normal bowel sounds, soft, nontender, no distension Extremities- b/l lower extremity skin changes seen with mild edema Neuro- alert, oriented PERRL, no facial palsy; no dysarthria; moves extremities Discharge Data Allergies Allergy/AdvReac Type Severity Reaction Status Date / Time gluten Allergy Unknown Uncoded 03/18/25 08:30 Consultations 03/17/25 21:00 ED Decision to Admit Stat 03/17/25 23:26 Consult Gastroenterology Routine Consult Sr. Vendor Management Associate Routine 03/18/25 13:05 Burn CD for patient Stat Ordered Studies 03/17/25 20:33 CT angio abdomen pelvis w con Stat Hospital Course (1) Acute blood loss anemia: 64-year-old female with past medical significant for nocturnal hypoxemia, severe pulmonary hypertension, chronic heart failure with preserved ejection fraction, right heart failure, unspecified cirrhosis of liver, celiac disease, inflammatory polyarthropathy, anemia, thrombocytopenia, pancytopenia, tobacco abuse in remission, GENI positive, jaundice, abnormal LFTs who lives with her daughter was brought in because of melena and hematemesis. Acute blood loss anemia Melena and hematemesis Upper GI bleed Hemoglobin 5 on admission History of liver cirrhosis Received 3 units of packed RBC so far with repeat hemoglobin of 7.1. CTA abdomen and pelvis no active bleeding seen. 2 cm linear radiopaque foreign body within the stomach(possibly clips?). Possible cholelithiasis Continue on Protonix and octreotide drip On prophylactic ceftriaxone GI consulted; anesthesia recommended transfer to tertiary [facility] given severe pulmonary hypertension. Discussed with both GI and anesthesia. Patient accepted at [facility] Liver cirrhosis unspecified Hyperbilirubinemia total bilirubin 12.3. Seems chronic elevation Restart diuretics when stable Restart lactulose when able to take Follows with GI Pulmonary hypertension On Opsumit and sildenafil Restart when able to take PO Hyperlipidemia On statin. Currently patient hold, restart when able to take PO History of right-sided heart failure and chronic heart failure with preserved ejection fraction Severe TR Monitor for volume overload Pancytopenia WBC 2.8. Hemoglobin 5. Platelets 58 Follows with heme-onc and GI Monitor Celiac disease Gluten-free diet DVT prophylaxis SCDs Disposition ICU. transfer to [facility] for advance anesthesia support FUll code Please note the above document was generated using voice recognition software. It may contain grammatical, syntax or spelling errors. Any formal questions or concerns about the content, text or information contained within the body of this dictation should be directly addressed to the provider for clarification Total Time Total Time Spent Total Time Spent (In Minutes): 45 Total Time Includes: Examination of the Patient, Discharge Planning, Medication Reconciliation, Communication With Other Providers and Other Discharge Plan Discharge Items Patient Disposition: Transfer Acute Care Hospital Reason For Visit: GI BLEED Discharge Diagnosis: Upper GI bleed Condition on Discharge: Serious Activity: Resume your previous activity Non-emergency contact: Primary Care Provider Call non-emergency contact if: you have any medication questions and your symptoms worsen Follow-up/Referrals: NewSarah spangler DO [Primary Care Provider] - Diet: Regular Addtl Attending Provider Instructions: Date of Service: March 18, 2025 Current Inpatient Medications Acetaminophen (Acetaminophen 325 Mg Tab) 650 mg PO Q4H PRN PRN Reason: pain/fever Stop: 04/16/25 23:49 Ascorbic Acid (Ascorbic Acid 500 Mg Tab) 250 mg PO DAILY GEOFF Stop: 04/17/25 08:59 Last Admin: 03/18/25 10:05 Dose: Not Given Atorvastatin Calcium (Atorvastatin 20 Mg Tab) 20 mg PO DAILY GEOFF Stop: 04/17/25 08:59 Last Admin: 03/18/25 10:05 Dose: Not Given Ferrous Sulfate (Ferrous Sulfate 325 Mg Tab) 325 mg PO DAILY GEOFF Stop: 04/17/25 08:59 Last Admin: 03/18/25 10:05 Dose: Not Given Pantoprazole Sodium 40 mg/ (Dextrose) 100 mls @ 20 mls/hr IV Q5H GEOFF Stop: 04/16/25 20:29 Last Admin: 03/18/25 16:52 Dose: 8 mg/hr, 20 mls/hr Ceftriaxone Sodium (Rocephin) 2,000 mg in 50 mls @ 100 mls/hr IV Q24H GEOFF Stop: 03/20/25 12:59 Last Infusion: 03/18/25 15:05 Dose: Infused Miscellaneous (Icu Protocol For Hyperglycemia) 1 each N/A Q6 GEOFF Stop: 03/20/25 05:59 Last Admin: 03/18/25 12:37 Dose: Not Given Miscellaneous (Icu Electrolyte Replacement Protocol) 1 each N/A BID@06,18 GEOFF; Protocol Stop: 03/25/25 05:59 Last Admin: 03/18/25 07:31 Dose: Not Given Ondansetron HCl (Ondansetron Inj 2 Mg/Ml 2 Ml Vial) 4 mg IV Q4H PRN PRN Reason: Nausea Stop: 04/16/25 23:49 Pending Studies at Discharge: No Stand-Alone Forms: My [facility] Skilled Items Patient informed of condition?: Yes DNR: No Discharge Level of Care: Other Communicable Disease: No Discharge Prognosis: Stable Lines: Peripheral IV Urinary Catheter: No Medications and DC Order Prescriptions: Continued furosemide 40 mg tablet 40 mg PO DAILY atorvastatin 20 mg tablet 20 mg PO DAILY potassium chloride 10 mEq tablet extended release 30 meq PO DAILY lactulose [Constulose] 10 gram/15 mL solution 30 ml PO TID sildenafil (pulm.hypertension) 20 mg tablet 20 mg PO TID Opsumit 10 mg tablet 10 mg PO DAILY Vitron-C 65 mg iron- 125 mg Tablet,Delayed Release (Dr/Ec) 1 tab PO DAILY Discharge Orders: Discharge Order (Routine); Ordered 03/19/25 Ordered By: Ghulam Valencia Admission Data Admit Date/Time: 03/17/25 22:10 Attending Provider: Ghulam Valencia Admit Provider: Kuldip Arce Primary Care Provider: Sarah Galaviz Other Providers: Kuldip Arce; Nader Bethea; Clarke Caceres Other Interventions: Discharge Summary Assessment (RN) Last Done: 03/19/25 08:25
--- NOTE | 2025-03-20 22:15 | Electrocardiogram Report ---
Test Reason : Blood Pressure : */* mmHG Vent. Rate : 99 BPM Atrial Rate : 99 BPM P-R Int : 146 ms QRS Dur : 88 ms QT Int : 346 ms P-R-T Axes : 68 57 64 degrees QTcB Int : 444 ms Normal sinus rhythm Nonspecific ST and T wave abnormality Abnormal ECG When compared with ECG of 10-Dec-2023 10:25, T wave inversion no longer evident in Inferior leads T wave inversion no longer evident in Lateral leads Confirmed by Kemar Pastrana ([id number]) on 03/20/2025 10:14:27 PM Referred By: REFERRED SELF Confirmed By: Kemar Pastrana
== END 2025-03-19 08:02 | disposition short-term general hospital (02) | DRG 378 ==
LOC: ED 19:17 → 1E 22:10

== ENCOUNTER 2025-07-13 16:42 | Inpatient (IN) ==
--- NOTE | 2025-07-13 17:10 | Emergency Department Note ---
Impression & Plan Sepsis, Hyperbilirubinemia, Acute hepatic encephalopathy, Acute non-ST elevation myocardial infarction (NSTEMI), Hypoxia, Abnormal EKG, Pyelonephritis ED Provider Note NAME: TANA ALCALA AGE: 64 SEX: F : 1960 ARRIVES VIA: Walk-In INFORMANT: Patient, ED PROVIDER(S): Bull Murray DO CHIEF COMPLAINT: Generalized weakness HPI: The patient is a 64-year-old female who presented to the emergency department for generalized weakness. The patient's had generalized weakness and shortness of breath this morning. The patient started having problems this morning. She did have a blood transfusion yesterday because of chronically low hemoglobin. She denies having any rectal bleeding. She has had some bleeding with her urination however. She denies having any abdominal pain. She denies having any cough or hemoptysis. The patient came to the emergency department today with family. She did not see her family doctor. ROS: See above HPI for pertinent positives & negatives. A total of 10 systems reviewed and were otherwise negative. PAST MEDICAL HISTORY: See Below PAST SURGICAL HISTORY: See Below FAMILY HISTORY: See Below SOCIAL HISTORY: See Below HOME MEDICATIONS: See Below ALLERGIES: See Below VITALS: See Below PHYSICAL EXAMINATION: GENERAL: The patient is awake and alert. She is somewhat listless appearing but answers questions appropriately. EYES: The conjunctivae are icteric. The pupils are round and reactive. EARS, NOSE, MOUTH AND THROAT: The nose is without any evidence of any deformity. Mucous membranes are moist. Tongue is midline. NECK: The neck is nontender and supple. RESPIRATORY: Diminished breath sounds are noted at both bases. There is no tachypnea or conversational dyspnea. CARDIOVASCULAR: Regular rate and rhythm noted there no murmurs rubs or gallops normal S1 normal S2. GASTROINTESTINAL: The abdomen is soft. Abdomen is nontender. MUSCULOSKELETAL/EXTREMITIES: There is no evidence of gross deformity full range of motion is noted in the hips and shoulders. SKIN: Skin is warm and dry. Pedal edema is noted bilaterally. NEUROLOGIC: Patient is awake alert and oriented x3 strength is symmetric patellar reflexes are 1+ bilaterally MEDICAL DECISION MAKING: The patient is a 64-year-old female who presented to the emergency department for altered mental status. The patient was mildly hypotensive. She was also tachycardic initially. I discussed patient's laboratory and radiographic studies with her. She was treated for presumed sepsis with IV antibiotics as well as IV fluids. She was found to have an elevated creatinine as well as an elevated bilirubin compared to her baseline. She was also found to have an elevated troponin. The patient had CT scan of the head for altered mental status. No acute process was noted on this study. She was also found to be hypoxic. CT of the chest showed bilateral pleural effusions but no definite pneumonia. She was found to have abnormalities on CT of the abdomen pelvis which could be consistent with pyelonephritis. The antibiotic coverage would be acceptable for this possibility. She was also treated with lactulose for elevated ammonia. She was reevaluated multiple times. [facility] to evaluate the patient in the emergency department for further management and disposition. Triage Nursing notes reviewed. Prior medical records reviewed Vital Signs: reviewed and remarkable for hypotension and tachycardia. Differential diagnosis: Infection, hypoglycemia, electrolyte abnormalities, overdose, toxicologic, cardiac sources, intracerebral event, neurologic, trauma, as well as other pathologies. ER treatment provided: See below Diagnostics interpreted by me: ECG: EKG was obtained in the emergency department. My interpretation is sinus tachycardia at 102 bpm. There is no ectopy. Nonspecific ST depression with T wave abnormalities were noted. This was compared to a tracing from June 24, 2025. No changes were noted. Cardiac Monitoring: An order was placed for continuous cardiac monitoring. The monitor shows a rate of 99 bpm with sinus rhythm. Laboratory studies: As stated above and show below. Imaging studies: See below. Radiographic imaging was reviewed by myself Consultation(s): I discussed this case with Dr. Miller who [facility] ED COURSE: Procedures: none PDMP:reviewed and no issues Critical Care: I have personally spent greater than 55 minutes of critical care time in the direct management of this patient. This includes bedside care, interpretation of diagnostic studies, and testing, discussion with consultants, patient, and family members, and other required patient management activities. This 55 minutes is in excess of all separately billable procedures. Past Med/Surg History Problem List (Updated 07/13/25 @ 20:32 by Bull Murray DO) Pyelonephritis (Acute) Abnormal EKG (Acute) Hypoxia (Acute) Acute non-ST elevation myocardial infarction (NSTEMI) (Acute) Acute hepatic encephalopathy (Acute) Hyperbilirubinemia (Acute) Sepsis (Acute) Chronic liver disease (Acute) Gastrointestinal hemorrhage, unspecified (Acute) Acute blood loss anemia (Acute) Hyperbilirubinemia Thrombocytopenia (Acute) [facility] and H&H stable per 03/20/20 office note Primary pulmonary hypertension Medical History Anxiety URI, acute Abnormal ECG SOB (shortness of breath) on exertion Elevated troponin I level Abnormal EKG Chest pain COVID-19 Encounter for pre-operative examination Cough Vertigo Pneumonia Tobacco abuse Pulmonary nodules Anemia Elevated bilirubin Right heart failure due to pulmonary hypertension Cirrhosis Pulmonary hypertension F/U WITH PULM MEDICINE AT [facility]- DR CRUZ DUMONT AND DR MAYO (CARDIO [facility]) Surgical History History of tubal ligation History of D&C Nausea and vomiting after administration of anesthetic agent Family History Mother Coronary heart disease CABG in 70s Alzheimer disease Father Coronary heart disease CABG in 70s Family history of diabetes mellitus Brother Family history of diabetes mellitus Other Hypertension Myocardial infarction Social History Smoking Status: Never smoker packs per day: 10; Second Hand Exposure: No; Do You Dip or Chew Tobacco: No; Hx Alcohol Use: No Hx Substance Use: No Preferred Language: Montserratian Communication Ability: Effective Small Animal Veterinarian Required: No Beliefs That Will Affect Care: None marital status: Current Living Situation: Family Current Living Situation Comment: Lives with daughter Feels Safe at Home: Yes Assistive Devices: None Allergies Allergies Allergy/AdvReac Type Severity Reaction Status Date / Time gluten Allergy Unknown Uncoded 07/12/25 10:00 Home Meds Home Medications Medication Instructions Recorded Confirmed furosemide 40 mg tablet 40 mg PO DAILY 03/17/25 07/13/25 lactulose 10 gram/15 mL oral 30 ml PO TID 03/17/25 07/13/25 solution (Constulose) sildenafil (pulm.hypertension) 20 40 mg PO TID 03/17/25 07/13/25 mg tablet ferrous sulfate 325 mg (65 mg 325 mg PO DAILY 06/08/25 07/13/25 iron) tablet folic acid 1 mg tablet 1 mg PO DAILY 06/08/25 07/13/25 vitamin A 3,000 mcg (10,000 unit) 3,000 mcg PO DAILY 06/08/25 07/13/25 capsule fluticasone propionate 50 2 spray intranasal QAM 07/13/25 07/13/25 mcg/actuation nasal spray,suspension multivitamin 1 tab PO QAM 07/13/25 07/13/25 pantoprazole 40 mg tablet,delayed 40 mg PO QAM 07/13/25 07/13/25 release selexipag 200 mcg (140)-800 mcg 1 ea PO UD 07/13/25 07/13/25 (60) tablets in a dose pack (Uptravi) selexipag 200 mcg tablet (Uptravi) 200 mcg PO TID 07/13/25 07/13/25 zinc glycinate 20 mg capsule 20 mg PO DAILY 07/13/25 07/13/25 Results & Data (ED) Vital Signs Vital Signs - 24 hr 07/13/25 16:46 07/13/25 17:39 07/13/25 17:39 Temperature 37 C Temperature Source Temporal Artery Scan Pulse Rate 104 H Pulse Rate [Apical] 98 H Pulse Rate from SpO2 Sensor Respiratory Rate 18 16 Respiratory Effort / Characteristics Non-Labored Non-Labored Spontaneous Respiratory Depth Normal Respiratory Pattern Regular Blood Pressure 91/62 L Blood Pressure [Right Arm] 91/65 L Blood Pressure Mean 71 Blood Pressure Mean [Right Arm] 73 Pulse Oximetry 87 L 96 Oxygen Delivery Method Room Air Nasal Cannula Room Air Oxygen Flow Rate 3 Sepsis Recent Fever Within 48 Hours No Sepsis New/Unexplained Change in Mental Status N/A Sepsis Action Taken by Nursing No Action Required Oxygen Flow Rate - Titration 96 07/13/25 17:39 07/13/25 17:49 07/13/25 17:57 Temperature Temperature Source Pulse Rate 98 H 99 H 99 H Pulse Rate [Apical] Pulse Rate from SpO2 Sensor 102 H Respiratory Rate 16 22 Respiratory Effort / Characteristics Respiratory Depth Respiratory Pattern Blood Pressure Blood Pressure [Right Arm] Blood Pressure Mean Blood Pressure Mean [Right Arm] Pulse Oximetry 96 96 Oxygen Delivery Method Nasal Cannula Oxygen Flow Rate 3 Sepsis Recent Fever Within 48 Hours Sepsis New/Unexplained Change in Mental Status Sepsis Action Taken by Nursing Oxygen Flow Rate - Titration 07/13/25 18:00 07/13/25 18:00 07/13/25 18:00 Temperature Temperature Source Pulse Rate 100 H Pulse Rate [Apical] Pulse Rate from SpO2 Sensor 99 H Respiratory Rate 22 Respiratory Effort / Characteristics Respiratory Depth Respiratory Pattern Blood Pressure 99/70 L 99/70 L Blood Pressure [Right Arm] Blood Pressure Mean 74 74 Blood Pressure Mean [Right Arm] Pulse Oximetry 97 Oxygen Delivery Method Oxygen Flow Rate Sepsis Recent Fever Within 48 Hours Sepsis New/Unexplained Change in Mental Status Sepsis Action Taken by Nursing Oxygen Flow Rate - Titration 07/13/25 18:16 07/13/25 18:16 07/13/25 18:21 Temperature Temperature Source Pulse Rate 98 H Pulse Rate [Apical] Pulse Rate from SpO2 Sensor 98 H Respiratory Rate 22 Respiratory Effort / Characteristics Respiratory Depth Respiratory Pattern Blood Pressure 99/65 L 99/65 L Blood Pressure [Right Arm] Blood Pressure Mean 75 75 Blood Pressure Mean [Right Arm] Pulse Oximetry 97 Oxygen Delivery Method Oxygen Flow Rate 3 Sepsis Recent Fever Within 48 Hours Sepsis New/Unexplained Change in Mental Status Sepsis Action Taken by Nursing Oxygen Flow Rate - Titration 07/13/25 18:41 07/13/25 18:47 07/13/25 19:02 Temperature Temperature Source Pulse Rate 98 H 99 H 99 H Pulse Rate [Apical] Pulse Rate from SpO2 Sensor 98 H 99 H 99 H Respiratory Rate 22 22 22 Respiratory Effort / Characteristics Respiratory Depth Respiratory Pattern Blood Pressure Blood Pressure [Right Arm] Blood Pressure Mean Blood Pressure Mean [Right Arm] Pulse Oximetry 95 97 97 Oxygen Delivery Method Oxygen Flow Rate Sepsis Recent Fever Within 48 Hours Sepsis New/Unexplained Change in Mental Status Sepsis Action Taken by Nursing Oxygen Flow Rate - Titration Home Medications Current Medication List: was personally reviewed by me Laboratory Data Attestation: I reviewed the patient's lab results. 07/13/25 17:03 07/13/25 17:03 Lab Results 07/13/25 07/13/25 07/13/25 Range/Units 17:03 17:10 17:30 WBC 8.77 (4.8-10.8) K/ul RBC 2.61 L (4.20-5.40) M/uL Hgb 8.0 L (12.0-16.0) g/dl POC Hgb 8.8 L (12.0-16.0) g/dl Hct 26.2 L (37.0-47.0) % POC Hct 26 L (37-47) % MCV 100.4 H (80.0-100.0) fL MCH 30.7 (25.0-34.0) pg MCHC 30.5 L (32.0-36.0) g/dL RDW Std Deviation 90.1 H (36.4-46.3) fL RDW Coeff of Dalia 24.8 H (11.5-14.5) % Plt Count 48 L (130-400) K/uL MPV 9.4 (9.4-12.4) fL Immature Gran % (Auto) 1.8 % Neut % (Auto) 76.9 % Lymph % (Auto) 9.5 % Quay % (Auto) 10.8 % Eos % (Auto) 0.7 % Baso % (Auto) 0.3 % Neut # (Auto) 6.74 H (1.40-6.50) K/uL Lymph # (Auto) 0.83 L (1.20-3.40) K/uL Quay # (Auto) 0.95 H (0.11-0.59) K/uL Eos # (Auto) 0.06 (0.00-0.50) K/uL Baso # (Auto) 0.03 (0.00-0.20) K/uL Immature Gran # (Auto) 0.16 (0.01-0.20) K/uL Absolute Nucleated RBC 0.23 H (0.00-0.12) K/uL Nucleated RBC % (auto) 2.6 % Polychromasia 1+ Anisocytosis Present Tear Drop Cells 1+ Ovalocytes 1+ PT 15.0 H (9.0-12.0) Seconds INR 1.4 H (0.9-1.1) APTT 38 H (21-31) Seconds PTT Ratio 1.4 VBG pH 7.39 (7.36-7.41) VBG pCO2 27 L (38-50) mmHg VBG pO2 28 mmHg VBG HCO3 16 mmol/L VBG O2 Saturation < 60.0 % VBG Base Excess -7.1 mEq/L POC Sodium 136 (135-144) mmol/L Sodium 133 L (136-145) mmol/L POC Potassium 4.0 (3.3-5.0) mmol/L Potassium 3.9 (3.5-5.1) mmol/L POC Chloride 106 (101-112) mmol/L Chloride 105 (98-107) mmol/L Carbon Dioxide 17 L (21-32) mmol/L POC Total CO2 17 L (24-31) mmol/L Anion Gap 11 (3-11) POC Anion Gap 18.0 (16-25) mmol/L POC BUN 30 H (7-18) mg/dl BUN 34 H (6-23) mg/dl Creatinine 1.66 H (0.6-1.2) mg/dl POC Creatinine 1.7 H (0.6-1.3) mg/dl Est Cr Clr Drug Dosing Not Reportable eGFR 34.67 BUN/Creatinine Ratio 20.5 H (10-20) Glucose 146 H (70-99(Fasting)) mg/dl POC Glucose (other) 144 H (70-99) mg/dl Lactate 4.6 H* (0.4-2.0) mmol/L Calcium 8.4 L (8.6-10.3) mg/dl POC Ioniz Calcium Bhavesh 1.09 L (1.12-1.32) mmol/l Magnesium 2.3 (1.7-2.4) mg/dl Total Bilirubin 17.3 H (0.2-1.0) mg/dl Direct Bilirubin 6.6 H (0-0.2) mg/dl AST 53 H (13-39) U/L ALT 26 (7-52) U/L Alkaline Phosphatase 185 H (34-104) U/L Ammonia 93.0 H (18-72) umol/L Troponin I High Sens 323.7 H* (0-14) pg/ml Total Protein 6.7 (6.0-8.3) gm/dl Albumin 2.5 L (3.4-5.0) gm/dl Procalcitonin 1.62 H (0-0.5) ng/ml SARS-CoV-2 (PCR) NEGATIVE (Negative) Influenza Type A (PCR) Negative (Neg) Influenza Type B (PCR) Negative (Neg) RSV (RT-PCR) Negative (Neg) 07/13/25 Range/Units 18:51 WBC (4.8-10.8) K/ul RBC (4.20-5.40) M/uL Hgb (12.0-16.0) g/dl POC Hgb (12.0-16.0) g/dl Hct (37.0-47.0) % POC Hct (37-47) % MCV (80.0-100.0) fL MCH (25.0-34.0) pg MCHC (32.0-36.0) g/dL RDW Std Deviation (36.4-46.3) fL RDW Coeff of Dalia (11.5-14.5) % Plt Count (130-400) K/uL MPV (9.4-12.4) fL Immature Gran % (Auto) % Neut % (Auto) % Lymph % (Auto) % Quay % (Auto) % Eos % (Auto) % Baso % (Auto) % Neut # (Auto) (1.40-6.50) K/uL Lymph # (Auto) (1.20-3.40) K/uL Quay # (Auto) (0.11-0.59) K/uL Eos # (Auto) (0.00-0.50) K/uL Baso # (Auto) (0.00-0.20) K/uL Immature Gran # (Auto) (0.01-0.20) K/uL Absolute Nucleated RBC (0.00-0.12) K/uL Nucleated RBC % (auto) % Polychromasia Anisocytosis Tear Drop Cells Ovalocytes PT (9.0-12.0) Seconds INR (0.9-1.1) APTT (21-31) Seconds PTT Ratio VBG pH (7.36-7.41) VBG pCO2 (38-50) mmHg VBG pO2 mmHg VBG HCO3 mmol/L VBG O2 Saturation % VBG Base Excess mEq/L POC Sodium (135-144) mmol/L Sodium (136-145) mmol/L POC Potassium (3.3-5.0) mmol/L Potassium (3.5-5.1) mmol/L POC Chloride (101-112) mmol/L Chloride (98-107) mmol/L Carbon Dioxide (21-32) mmol/L POC Total CO2 (24-31) mmol/L Anion Gap (3-11) POC Anion Gap (16-25) mmol/L POC BUN (7-18) mg/dl BUN (6-23) mg/dl Creatinine (0.6-1.2) mg/dl POC Creatinine (0.6-1.3) mg/dl Est Cr Clr Drug Dosing eGFR BUN/Creatinine Ratio (10-20) Glucose (70-99(Fasting)) mg/dl POC Glucose (other) (70-99) mg/dl Lactate 3.0 H* (0.4-2.0) mmol/L Calcium (8.6-10.3) mg/dl POC Ioniz Calcium Bhavesh (1.12-1.32) mmol/l Magnesium (1.7-2.4) mg/dl Total Bilirubin (0.2-1.0) mg/dl Direct Bilirubin 6.1 H (0-0.2) mg/dl AST (13-39) U/L ALT (7-52) U/L Alkaline Phosphatase (34-104) U/L Ammonia (18-72) umol/L Troponin I High Sens 320.9 H* (0-14) pg/ml Total Protein (6.0-8.3) gm/dl Albumin (3.4-5.0) gm/dl Procalcitonin (0-0.5) ng/ml SARS-CoV-2 (PCR) (Negative) Influenza Type A (PCR) (Neg) Influenza Type B (PCR) (Neg) RSV (RT-PCR) (Neg) Administered Medications Discontinued Medications Sodium Chloride (Nss) 1,000 mls @ 999 mls/hr IV .Q1H1M ONE Stop: 07/13/25 18:21 Last Infusion: 07/13/25 19:13 Dose: Infused Documented By: Admin: 07/13/25 17:30 Dose: 999 mls/hr Documented By: MAO Piperacillin Sod/Tazobactam Sod (Zosyn) 4.5 gm in 100 mls @ 200 mls/hr IV NOW ONE; Protocol Stop: 07/13/25 18:17 Last Infusion: 07/13/25 19:13 Dose: Infused Documented By: Admin: 07/13/25 17:58 Dose: 200 mls/hr Documented By: MAO Sodium Chloride (Nss) 1,000 mls @ 999 mls/hr IV .Q1H1M ONE Stop: 07/13/25 20:21 Last Admin: 07/13/25 19:24 Dose: 999 mls/hr Documented By: MORAIMA Ioversol (Optiray 320 125ml) 115 ml IV ONCE ONE Stop: 07/13/25 18:42 Last Admin: 07/13/25 18:41 Dose: 115 ml Documented By: JOVAN Lactulose (Lactulose Syrup 20 Gm/30 Ml Udc) 30 gm PO NOW STA Stop: 07/13/25 19:06 Last Admin: 07/13/25 19:19 Dose: 30 gm Documented By: MORAIMA Imaging Data Attestation: I personally reviewed and interpreted this imaging study as follows: My Impression: 1 view chest x-ray was obtained in the emergency department. My interpretation is bilateral pleural effusions, final report below. Radiologist's Impression: Chest X-Ray 07/13/25 17:02 Clinical History: Sepsis Technique: A frontal view of the chest was obtained Comparison is made to the prior examination dated 12/10/2023 Findings: There are no definite pulmonary infiltrates. The heart is mildly enlarged. No pleural effusion or pneumothorax is seen. Again seen is bilateral hilar prominence that could be due to enlargement of the central pulmonary arteries No fracture is noted. No foreign body is seen Impression: 1. Mild cardiomegaly 2. Bilateral hilar prominence that could be due to enlarged central vasculature such as from pulmonary arterial hypertension. Hilar adenopathy is also possible ACT 112: Positive. There are findings on this exam that require communication between the performing entity and the patient following Patient Test Result Information Act ([place] ACT 112) guidelines. Electronically signed by Kaiden Greenberg 07-13-2025 6:50 PM Abdomen/Pelvis CT 07/13/25 17:22 Technique: Axial computed tomography images were obtained of the abdomen and pelvis after the administration of intravenous contrast. Comparison is made to the prior CT dated 03/17/2025. Findings: The liver is mildly nodular in contour, suspicious for cirrhosis. There are abdominal varices, consistent with portal hypertension. There is an unchanged 1 cm cyst in the inferior right hepatic lobe. There is also a suspected 3 mm cyst in the right hepatic lobe. No definite liver mass lesion is seen. Gallstones are again seen. There is no definite sign of acute cholecystitis. No bile duct dilatation is noted. The spleen is enlarged measuring 17.9 cm. No focal splenic lesion is evident. The pancreas appears normal with no sign of acute or chronic pancreatitis and no mass lesion noted. The pancreatic duct is of normal caliber. The adrenal glands appear unremarkable. There is a new approximately 3 cm area of ill-defined mild diminished enhancement in the upper pole of the right kidney There are bilateral renal calculi, measuring up to 5 mm. There is mild prominence of the right renal pelvis. There is apparent wall thickening of the right renal pelvis. There is no overt hydronephrosis or perinephric stranding. There are multiple left renal cysts, measuring up to 2.1 cm. There is mild left renal cortical scarring The aorta is of normal caliber. No abdominal adenopathy is seen. A metallic foreign body is again seen within the stomach. There is no sign of small bowel obstruction. There is suspected mild wall thickening of the ascending colon. No free intraperitoneal air is identified. There is a small to moderate amount of ascites No distal ureteral or bladder calculi are seen. The bladder is decompressed. There is prominence of the bladder wall that may be due to the decompressed state. The iliac arteries are of normal caliber. No pelvic adenopathy is noted. There are unchanged compression fractures of the L3 and L4 vertebral bodies. No focal osseous lesion is seen Impression: 1. New 3 cm area of altered enhancement in the upper right kidney, most likely due to pyelonephritis 2. Apparent mild wall thickening of the right renal pelvis, which may also be due to infection 3. Bilateral renal calculi and left renal cysts 4. Cirrhosis and portal hypertension 5. Splenomegaly 6. Small to moderate amount of ascites 7. Small hepatic cysts 8. Cholelithiasis without evidence of acute cholecystitis 9. Unchanged foreign body within the gastric lumen 10. Apparent mild colonic wall thickening. This could be due to secondary edema from hypoalbuminemia, though infectious colitis or inflammatory bowel disease is also possible ACT 112: Positive. There are findings on this exam that require communication between the performing entity and the patient following Patient Test Result Information Act ([place] ACT 112) guidelines. Electronically signed by Kaiden Greenberg 07-13-2025 7:21 PM Chest CTA 07/13/25 17:22 Clinical history: Weakness and shortness of breath Technique: Axial computed tomography images were obtained of the chest after the administration of intravenous contrast according to the CT angiogram protocol Comparison is made to the prior CT dated 12/10/2023 Findings: There is no definite sign of pulmonary embolism. There is bilateral lower lobe atelectasis. There is no pneumothorax. There are new small bilateral pleural effusions. No endobronchial lesion is seen There is no mediastinal, hilar, or axillary adenopathy. The thoracic aorta appears unremarkable with no sign of aneurysm or dissection. There is no pericardial effusion. There is coronary atherosclerosis No fracture is seen. No focal osseous lesion is evident Impression: 1. No definite sign of pulmonary embolism 2. Small bilateral pleural effusions and bilateral lower lobe atelectasis 3. Coronary atherosclerosis Electronically signed by Kaiden Greenberg 07-13-2025 7:[address] 07/13/25 17:22 Technique: Axial computed tomography images were obtained of the brain from the vertex to the skull base without intravenous contrast. Findings: There is no sign of intracranial hemorrhage. There is normal villavicencio-white matter differentiation with no sign of acute or old infarction. No midline shift or other form of herniation is identified. There is no hydrocephalus. No obvious mass lesion is seen on this noncontrast examination. The visualized portions of the orbits and paranasal sinuses appear unremarkable. The mastoid air cells appear clear Impression: Unremarkable noncontrast CT of the brain Electronically signed by Kaiden Greenberg 07-13-2025 7:07 PM Discharge Plan Visit Data Chief Complaint: Lethargic Stated Complaint: SOB, TROUBLE WALKING, LETHARGIC ED Provider: Bull Murray Discharge Problem: Sepsis, Hyperbilirubinemia, Acute hepatic encephalopathy, Acute non-ST elevation myocardial infarction (NSTEMI), Hypoxia, Abnormal EKG, Pyelonephritis Patient Disposition: Being Evaluated by Hospitalist Condition: Fair Forms Stand Alone Forms: My [facility] Prescriptions Prescriptions: No Action multivitamin Tablet 1 tab PO QAM pantoprazole 40 mg tablet,delayed release (DR/EC) 40 mg PO QAM fluticasone propionate 50 mcg/actuation [place],Suspension 2 spray INTRANASAL QAM Rx Instructions: administer into each nostril Uptravi 200 mcg tablet 200 mcg PO TID Uptravi 200 mcg (140)- 800 mcg (60) tablets,dose pack 1 ea PO UD Rx Instructions: TITRATE PACK zinc glycinate 20 mg Capsule 20 mg PO DAILY furosemide 40 mg tablet 40 mg PO DAILY lactulose [Constulose] 10 gram/15 mL solution 30 ml PO TID sildenafil (pulm.hypertension) 20 mg tablet 40 mg PO TID vitamin A 3,000 mcg (10,000 unit) Capsule 3,000 mcg PO DAILY ferrous sulfate 325 mg (65 mg iron) Tablet 325 mg PO DAILY folic acid 1 mg tablet 1 mg PO DAILY Referrals Referrals: Sarah Galaviz DO [Primary Care Provider] -
[2025-07-13 17:16] LABS: Base Excess VBG -7.1 mEq/L; HCO3 VBG 16 mmol/L; Oxygen Saturation VBG < 60.0 %; PCO2 VBG 27 mmHg (38-50); PO2 VBG 28 mmHg; pH VBG 7.39 (7.36-7.41)
[2025-07-13 17:20] LABS: Hematocrit (blood only) 26.2 % (37.0-47.0); Hemoglobin 8.0 g/dl (12.0-16.0); Immature Granulocytes # (auto) 0.16 K/uL (0.01-0.20); Immature Granulocytes % (auto) 1.8 %; Mean Corpuscular Hemoglobin 30.7 pg (25.0-34.0); Mean Corpuscular Volume 100.4 fL (80.0-100.0); Platelet Count 48 K/uL (130-400); RDW Standard Deviation 90.1 fL (36.4-46.3); Red Blood Count 2.61 M/uL (4.20-5.40); White Blood Count 8.77 K/ul (4.8-10.8)
[2025-07-13] MEDS: SODIUM CHLORIDE 0.9% 1,000 ML IV ONE ×2 (17:30→19:24)
[2025-07-13 17:37] LABS: Alanine Aminotransferase 26 U/L (7-52); Albumin Level 2.5 gm/dl (3.4-5.0); Alkaline Phosphatase 185 U/L (34-104); Anion Gap 11 (3-11); Bilirubin,Total 17.3 mg/dl (0.2-1.0); Blood Urea Nitrogen 34 mg/dl (6-23); Calcium 8.4 mg/dl (8.6-10.3); Carbon Dioxide 17 mmol/L (21-32); Chloride 105 mmol/L (98-107); Glucose 146 mg/dl (70-99(Fasting)); Magnesium 2.3 mg/dl (1.7-2.4); Potassium 3.9 mmol/L (3.5-5.1); Sodium 133 mmol/L (136-145); Total Protein 6.7 gm/dl (6.0-8.3)
[2025-07-13 17:45] LABS: Anisocytosis Present; Ovalocytes 1+; Polychromasia 1+; Tear Drop Cells 1+
[2025-07-13 17:48] LABS: INR 1.4 (0.9-1.1); Partial Thromboplastin Time 38 Seconds (21-31); Prothrombin Time 15.0 Seconds (9.0-12.0)
[2025-07-13] MEDS: PIPERACILLIN/TAZOBACTAM 4.5 GM/100 ML BAG IV ONE (17:58)
[2025-07-13 18:25] LABS: Influenza A virus by PCR Negative (Neg); Influenza B virus by PCR Negative (Neg); SARS CoV2 RNA(COVID-19) Ceph NEGATIVE (Negative)
[2025-07-13] MEDS: OPTIRAY 320 125ml IV ONE (18:41)
--- NOTE | 2025-07-13 18:50 | XRay Report ---
Clinical History: Sepsis Technique: A frontal view of the chest was obtained Comparison is made to the prior examination dated 12/10/2023 Findings: There are no definite pulmonary infiltrates. The heart is mildly enlarged. No pleural effusion or pneumothorax is seen. Again seen is bilateral hilar prominence that could be due to enlargement of the central pulmonary arteries No fracture is noted. No foreign body is seen Impression: 1. Mild cardiomegaly 2. Bilateral hilar prominence that could be due to enlarged central vasculature such as from pulmonary arterial hypertension. Hilar adenopathy is also possible ACT 112: Positive. There are findings on this exam that require communication between the performing entity and the patient following Patient Test Result Information Act ([place] ACT 112) guidelines. Electronically signed by Kaiden Greenberg 07-13-2025 6:50 PM
--- NOTE | 2025-07-13 19:08 | CT Scan Report ---
Technique: Axial computed tomography images were obtained of the brain from the vertex to the skull base without intravenous contrast. Findings: There is no sign of intracranial hemorrhage. There is normal villavicencio-white matter differentiation with no sign of acute or old infarction. No midline shift or other form of herniation is identified. There is no hydrocephalus. No obvious mass lesion is seen on this noncontrast examination. The visualized portions of the orbits and paranasal sinuses appear unremarkable. The mastoid air cells appear clear Impression: Unremarkable noncontrast CT of the brain Electronically signed by Kaiden Greenberg 07-13-2025 7:07 PM
--- NOTE | 2025-07-13 19:11 | CT Scan Report ---
Clinical history: Weakness and shortness of breath Technique: Axial computed tomography images were obtained of the chest after the administration of intravenous contrast according to the CT angiogram protocol Comparison is made to the prior CT dated 12/10/2023 Findings: There is no definite sign of pulmonary embolism. There is bilateral lower lobe atelectasis. There is no pneumothorax. There are new small bilateral pleural effusions. No endobronchial lesion is seen There is no mediastinal, hilar, or axillary adenopathy. The thoracic aorta appears unremarkable with no sign of aneurysm or dissection. There is no pericardial effusion. There is coronary atherosclerosis No fracture is seen. No focal osseous lesion is evident Impression: 1. No definite sign of pulmonary embolism 2. Small bilateral pleural effusions and bilateral lower lobe atelectasis 3. Coronary atherosclerosis Electronically signed by Kaiden Greenberg 07-13-2025 7:11 PM
[2025-07-13] MEDS: LACTULOSE SYRUP 20 GM/30 ML UDC PO STA (19:19)
--- NOTE | 2025-07-13 19:21 | CT Scan Report ---
Technique: Axial computed tomography images were obtained of the abdomen and pelvis after the administration of intravenous contrast. Comparison is made to the prior CT dated 03/17/2025. Findings: The liver is mildly nodular in contour, suspicious for cirrhosis. There are abdominal varices, consistent with portal hypertension. There is an unchanged 1 cm cyst in the inferior right hepatic lobe. There is also a suspected 3 mm cyst in the right hepatic lobe. No definite liver mass lesion is seen. Gallstones are again seen. There is no definite sign of acute cholecystitis. No bile duct dilatation is noted. The spleen is enlarged measuring 17.9 cm. No focal splenic lesion is evident. The pancreas appears normal with no sign of acute or chronic pancreatitis and no mass lesion noted. The pancreatic duct is of normal caliber. The adrenal glands appear unremarkable. There is a new approximately 3 cm area of ill-defined mild diminished enhancement in the upper pole of the right kidney There are bilateral renal calculi, measuring up to 5 mm. There is mild prominence of the right renal pelvis. There is apparent wall thickening of the right renal pelvis. There is no overt hydronephrosis or perinephric stranding. There are multiple left renal cysts, measuring up to 2.1 cm. There is mild left renal cortical scarring The aorta is of normal caliber. No abdominal adenopathy is seen. A metallic foreign body is again seen within the stomach. There is no sign of small bowel obstruction. There is suspected mild wall thickening of the ascending colon. No free intraperitoneal air is identified. There is a small to moderate amount of ascites No distal ureteral or bladder calculi are seen. The bladder is decompressed. There is prominence of the bladder wall that may be due to the decompressed state. The iliac arteries are of normal caliber. No pelvic adenopathy is noted. There are unchanged compression fractures of the L3 and L4 vertebral bodies. No focal osseous lesion is seen Impression: 1. New 3 cm area of altered enhancement in the upper right kidney, most likely due to pyelonephritis 2. Apparent mild wall thickening of the right renal pelvis, which may also be due to infection 3. Bilateral renal calculi and left renal cysts 4. Cirrhosis and portal hypertension 5. Splenomegaly 6. Small to moderate amount of ascites 7. Small hepatic cysts 8. Cholelithiasis without evidence of acute cholecystitis 9. Unchanged foreign body within the gastric lumen 10. Apparent mild colonic wall thickening. This could be due to secondary edema from hypoalbuminemia, though infectious colitis or inflammatory bowel disease is also possible ACT 112: Positive. There are findings on this exam that require communication between the performing entity and the patient following Patient Test Result Information Act ([place] ACT 112) guidelines. Electronically signed by Kaiden Greenberg 07-13-2025 7:21 PM
--- NOTE | 2025-07-13 19:48 | History & Physical Report ---
Date of Service July 13, 2025 Assessment & Plan (1) Severe sepsis: Plan: Assessment and plan below following discussion of case with ED provider and reviewing patient history/pertinent normal/abnormal diagnostic test results. Severe sepsis SIRS plus ARF plus lactic acidosis Secondary to complicated UTI Pyelonephritis on imaging Possible incipient hepatorenal syndrome Hyperammonemia secondary to decompensated cirrhosis secondary to illness, history MASLD/autoimmune cirrhosis as per records Troponin elevation secondary to illness in the setting of kidney dysfunction Acute hypoxemic respiratory failure, bilateral pleural effusions and imaging, hx right-sided heart failure (EF 65 to 70%, TTE 2024), equivocal volume status, patient presenting with signs of volume overload valvular heart disease (severe TR, moderate MR) pulmonary hypertension, nocturnal hypoxemia/sleep disordered breathing, on Revatio and Uptravi chronic pancytopenia, secondary to liver disease Hyperglycemia ro DM past tobacco abuse Admit to PCU CS, Cefepime Based on UA, monitor lactic acid response to IV albumin and midodrine Hold home diuretic and Revatio for now given borderline BP Facilitate lactulose GI consult re: decompensated cirrhosis Nephrology consult if without improvement in kidney dysfunction Supplemental O2, diuretic Rx once normotensive and kidney function back to baseline Check hemoglobin A1c DVT prophylaxis. SCDs Re: Thrombocytopenia, history of GI bleed Full code Total critical care time was 45 minutes. Text document was generated using [employer] voice recognition software. It may contain grammatical or spelling errors. Kindly contact undersigned for clarification of any documentation item in question. History of Present Illness Chief Complaint: Generalized weakness Primary Care Provider: Sarah Galaviz DO History obtained from patient and records. 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 Last [facility] confinement March 2025 for UGIB. [place] [facility] [place] EGD at facility showed grade 1 esophageal varices and portal hypertensive gastropathy. Recent ER visit 2 weeks ago for symptomatic anemia without obvious bleed at home. Hemoglobin 5 at time of consultation. Patient transfused 2 units PRBC at the ER. 1 week history of dysuria symptoms with 1 episode of hematuria. Denies abdominal or flank pain. Poor appetite. Generalized weakness. Shortness of breath from being weak. Denies chest pain, cough, or fluid retention. Denies abdominal or flank pain. Patient compliant with home medications. SBP 90s upon arrival at the ER. Lowest O2 sats of 80s documented at the ER. Zosyn administered at the ER. Medical History as above Surgical History : D&C, BTL Family History : DM, dementia, asthma, thyroid disease, stroke, heart disease Personal/Social history : Past tobacco abuse, no EtOH intake, prior [employer] employment Allergies Allergy/AdvReac Type Severity Reaction Status Date / Time gluten Allergy Unknown Unknown Verified 07/13/25 21:48 Home Medications Medication Instructions Recorded Confirmed Type furosemide 40 mg tablet 40 mg PO DAILY 03/17/25 07/13/25 History lactulose 10 gram/15 mL oral 30 ml PO TID 03/17/25 07/13/25 History solution (Constulose) sildenafil (pulm.hypertension) 20 40 mg PO TID 03/17/25 07/13/25 History mg tablet ferrous sulfate 325 mg (65 mg 325 mg PO DAILY 06/08/25 07/13/25 History iron) tablet folic acid 1 mg tablet 1 mg PO DAILY 06/08/25 07/13/25 History vitamin A 3,000 mcg (10,000 unit) 3,000 mcg PO DAILY 06/08/25 07/13/25 History capsule fluticasone propionate 50 2 spray intranasal QAM 07/13/25 07/13/25 History mcg/actuation nasal spray,suspension multivitamin 1 tab PO QAM 07/13/25 07/13/25 History pantoprazole 40 mg tablet,delayed 40 mg PO QAM 07/13/25 07/13/25 History release selexipag 200 mcg (140)-800 mcg 1 ea PO UD 07/13/25 07/13/25 History (60) tablets in a dose pack (Uptravi) selexipag 200 mcg tablet (Uptravi) 200 mcg PO TID 07/13/25 07/13/25 History zinc glycinate 20 mg capsule 20 mg PO DAILY 07/13/25 07/13/25 History Past Med/Surg History Problem List (Updated 07/13/25 @ 22:18 by Leonel Miller MD) Severe sepsis Pyelonephritis (Acute) Abnormal EKG (Acute) Hypoxia (Acute) Acute non-ST elevation myocardial infarction (NSTEMI) (Acute) Acute hepatic encephalopathy (Acute) Hyperbilirubinemia (Acute) Sepsis (Acute) Chronic liver disease (Acute) Gastrointestinal hemorrhage, unspecified (Acute) Acute blood loss anemia (Acute) Hyperbilirubinemia Thrombocytopenia (Acute) Seen by [facility] heme - platelets and H&H stable per 03/20/20 office note Primary pulmonary hypertension Medical History Anxiety URI, acute Abnormal ECG SOB (shortness of breath) on exertion Elevated troponin I level Abnormal EKG Chest pain COVID-19 Encounter for pre-operative examination Cough Vertigo Pneumonia Tobacco abuse Pulmonary nodules Anemia Elevated bilirubin Right heart failure due to pulmonary hypertension Cirrhosis Pulmonary hypertension F/U WITH PULM MEDICINE AT [facility]- DR CRUZ DUMONT AND DR MAYO ([facility]) Surgical History History of tubal ligation History of D&C Nausea and vomiting after administration of anesthetic agent Family History Mother Coronary heart disease CABG in 70s Alzheimer disease Father Coronary heart disease CABG in 70s Family history of diabetes mellitus Brother Family history of diabetes mellitus Other Hypertension Myocardial infarction Social History Smoking Status: Unknown if ever smoked packs per day: 10; Second Hand Exposure: No; Do You Dip or Chew Tobacco: No; Hx Alcohol Use: No Hx Substance Use: No Preferred Language: Bel[place]an Communication Ability: Effective 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: No Beliefs That Will Affect Care: None marital status: Current Living Situation: Family Current Living Situation Comment: Lives with daughter Feels Safe at Home: Yes Safety Concerns: Feels Safe At This Time Assistive Devices: None Review of Systems Review of Systems: As per HPI, all other systems reviewed and negative Physical Exam Physical Exam: GENERAL: Slightly uncomfortable, no respiratory distress SKIN: Normal color, warm HEENT: Pale palpebral conjunctivae, no ptosis, dry buccal mucosa, nasal cannula in place NECK : Supple, no tenderness CHEST : Decreased breath sounds, no tenderness HEART : Tachycardic, no obvious murmurs ABDOMEN: Some distention, nontender EXTREMITIES : Minimal LE swelling, no LE tenderness, palpable pulses, no other conspicuous deformities noted NEUROLOGIC : Coherent, no facial asymmetry, no other gross focality Results & Data Results & Data Vital Signs (Past 12 Hours) Vital Signs Temp Pulse Pulse Resp BP BP Pulse Ox 07/13/25 19:02 99 H 22 97 07/13/25 18:47 99 H 22 97 07/13/25 18:41 98 H 22 95 07/13/25 18:21 98 H 22 97 07/13/25 18:16 99/65 L 07/13/25 18:16 99/65 L 07/13/25 18:00 99/70 L 07/13/25 18:00 99/70 L 07/13/25 18:00 100 H 22 97 07/13/25 17:57 99 H 22 96 07/13/25 17:49 99 H 07/13/25 17:39 98 H 16 96 07/13/25 17:39 98 H 16 91/65 L 96 07/13/25 17:39 07/13/25 16:46 37 C 104 H 18 91/62 L 87 L O2 Del Method O2 Flow Rate 07/13/25 19:02 07/13/25 18:47 07/13/25 18:41 07/13/25 18:21 3 07/13/25 18:16 07/13/25 18:16 07/13/25 18:00 07/13/25 18:00 07/13/25 18:00 07/13/25 17:57 07/13/25 17:49 07/13/25 17:39 Nasal Cannula 3 07/13/25 17:39 Room Air 07/13/25 17:39 Nasal Cannula 3 07/13/25 16:46 Room Air Laboratory Results Laboratory Results WBC 8.77 K/ul (4.8-10.8) 07/13/25 17:03 RBC 2.61 M/uL (4.20-5.40) L 07/13/25 17:03 Hgb 8.0 g/dl (12.0-16.0) L 07/13/25 17:03 POC Hgb 8.8 g/dl (12.0-16.0) L 07/13/25 17:10 Hct 26.2 % (37.0-47.0) L 07/13/25 17:03 POC Hct 26 % (37-47) L 07/13/25 17:10 MCV 100.4 fL (80.0-100.0) H 07/13/25 17:03 MCH 30.7 pg (25.0-34.0) 07/13/25 17:03 MCHC 30.5 g/dL (32.0-36.0) L 07/13/25 17:03 RDW Std Deviation 90.1 fL (36.4-46.3) H 07/13/25 17:03 RDW Coeff of Dalia 24.8 % (11.5-14.5) H 07/13/25 17:03 Plt Count 48 K/uL (130-400) L 07/13/25 17:03 MPV 9.4 fL (9.4-12.4) 07/13/25 17:03 Immature Gran % (Auto) 1.8 % 07/13/25 17:03 Neut % (Auto) 76.9 % 07/13/25 17:03 Lymph % (Auto) 9.5 % 07/13/25 17:03 Levy % (Auto) 10.8 % 07/13/25 17:03 Eos % (Auto) 0.7 % 07/13/25 17:03 Baso % (Auto) 0.3 % 07/13/25 17:03 Neut # (Auto) 6.74 K/uL (1.40-6.50) H 07/13/25 17:03 Lymph # (Auto) 0.83 K/uL (1.20-3.40) L 07/13/25 17:03 Levy # (Auto) 0.95 K/uL (0.11-0.59) H 07/13/25 17:03 Eos # (Auto) 0.06 K/uL (0.00-0.50) 07/13/25 17:03 Baso # (Auto) 0.03 K/uL (0.00-0.20) 07/13/25 17:03 Immature Gran # (Auto) 0.16 K/uL (0.01-0.20) 07/13/25 17:03 Absolute Nucleated RBC 0.23 K/uL (0.00-0.12) H 07/13/25 17:03 Nucleated RBC % (auto) 2.6 % 07/13/25 17:03 Polychromasia 1+ 07/13/25 17:03 Anisocytosis Present 07/13/25 17:03 Tear Drop Cells 1+ 07/13/25 17:03 Ovalocytes 1+ 07/13/25 17:03 PT 15.0 Seconds (9.0-12.0) H 07/13/25 17:03 INR 1.4 (0.9-1.1) H 07/13/25 17:03 APTT 38 Seconds (21-31) H 07/13/25 17:03 PTT Ratio 1.4 07/13/25 17:03 VBG pH 7.39 (7.36-7.41) 07/13/25 17:03 VBG pCO2 27 mmHg (38-50) L 07/13/25 17:03 VBG pO2 28 mmHg 07/13/25 17:03 VBG HCO3 16 mmol/L 07/13/25 17:03 VBG O2 Saturation < 60.0 % 07/13/25 17:03 VBG Base Excess -7.1 mEq/L 07/13/25 17:03 POC Sodium 136 mmol/L (135-144) 07/13/25 17:10 Sodium 133 mmol/L (136-145) L 07/13/25 17:03 POC Potassium 4.0 mmol/L (3.3-5.0) 07/13/25 17:10 Potassium 3.9 mmol/L (3.5-5.1) 07/13/25 17:03 POC Chloride 106 mmol/L (101-112) 07/13/25 17:10 Chloride 105 mmol/L (98-107) 07/13/25 17:03 Carbon Dioxide 17 mmol/L (21-32) L 07/13/25 17:03 POC Total CO2 17 mmol/L (24-31) L 07/13/25 17:10 Anion Gap 11 (3-11) 07/13/25 17:03 POC Anion Gap 18.0 mmol/L (16-25) 07/13/25 17:10 POC BUN 30 mg/dl (7-18) H 07/13/25 17:10 BUN 34 mg/dl (6-23) H 07/13/25 17:03 Creatinine 1.66 mg/dl (0.6-1.2) H 07/13/25 17:03 POC Creatinine 1.7 mg/dl (0.6-1.3) H 07/13/25 17:10 Est Cr Clr Drug Dosing Not Reportable 07/13/25 17:03 eGFR 34.67 07/13/25 17:03 BUN/Creatinine Ratio 20.5 (10-20) H 07/13/25 17:03 Glucose 146 mg/dl (70-99(Fasting)) H 07/13/25 17:03 POC Glucose (other) 144 mg/dl (70-99) H 07/13/25 17:10 Lactate 3.0 mmol/L (0.4-2.0) H* 07/13/25 18:51 Calcium 8.4 mg/dl (8.6-10.3) L 07/13/25 17:03 POC Ioniz Calcium Bhavesh 1.09 mmol/l (1.12-1.32) L 07/13/25 17:10 Magnesium 2.3 mg/dl (1.7-2.4) 07/13/25 17:03 Total Bilirubin 17.3 mg/dl (0.2-1.0) H 07/13/25 17:03 Direct Bilirubin 6.1 mg/dl (0-0.2) H 07/13/25 18:51 AST 53 U/L (13-39) H 07/13/25 17:03 ALT 26 U/L (7-52) 07/13/25 17:03 Alkaline Phosphatase 185 U/L (34-104) H 07/13/25 17:03 Ammonia 93.0 umol/L (18-72) H 07/13/25 17:03 Troponin I High Sens 320.9 pg/ml (0-14) H* 07/13/25 18:51 Total Protein 6.7 gm/dl (6.0-8.3) 07/13/25 17:03 Albumin 2.5 gm/dl (3.4-5.0) L 07/13/25 17:03 Procalcitonin 1.62 ng/ml (0-0.5) H 07/13/25 17:03 SARS-CoV-2 (PCR) NEGATIVE (Negative) 07/13/25 17:30 Influenza Type A (PCR) Negative (Neg) 07/13/25 17:30 Influenza Type B (PCR) Negative (Neg) 07/13/25 17:30 RSV (RT-PCR) Negative (Neg) 07/13/25 17:30 Impressions Chest X-Ray 07/13/25 17:02 Clinical History: Sepsis Technique: A frontal view of the chest was obtained Comparison is made to the prior examination dated 12/10/2023 Findings: There are no definite pulmonary infiltrates. The heart is mildly enlarged. No pleural effusion or pneumothorax is seen. Again seen is bilateral hilar prominence that could be due to enlargement of the central pulmonary arteries No fracture is noted. No foreign body is seen Impression: 1. Mild cardiomegaly 2. Bilateral hilar prominence that could be due to enlarged central vasculature such as from pulmonary arterial hypertension. Hilar adenopathy is also possible ACT 112: Positive. There are findings on this exam that require communication between the performing entity and the patient following Patient Test Result Information Act ([place] ACT 112) guidelines. Electronically signed by Kaiden Greenberg 07-13-2025 6:50 PM Abdomen/Pelvis CT 07/13/25 17:22 Technique: Axial computed tomography images were obtained of the abdomen and pelvis after the administration of intravenous contrast. Comparison is made to the prior CT dated 03/17/2025. Findings: The liver is mildly nodular in contour, suspicious for cirrhosis. There are abdominal varices, consistent with portal hypertension. There is an unchanged 1 cm cyst in the inferior right hepatic lobe. There is also a suspected 3 mm cyst in the right hepatic lobe. No definite liver mass lesion is seen. Gallstones are again seen. There is no definite sign of acute cholecystitis. No bile duct dilatation is noted. The spleen is enlarged measuring 17.9 cm. No focal splenic lesion is evident. The pancreas appears normal with no sign of acute or chronic pancreatitis and no mass lesion noted. The pancreatic duct is of normal caliber. The adrenal glands appear unremarkable. There is a new approximately 3 cm area of ill-defined mild diminished enhancement in the upper pole of the right kidney There are bilateral renal calculi, measuring up to 5 mm. There is mild prominence of the right renal pelvis. There is apparent wall thickening of the right renal pelvis. There is no overt hydronephrosis or perinephric stranding. There are multiple left renal cysts, measuring up to 2.1 cm. There is mild left renal cortical scarring The aorta is of normal caliber. No abdominal adenopathy is seen. A metallic foreign body is again seen within the stomach. There is no sign of small bowel obstruction. There is suspected mild wall thickening of the ascending colon. No free intraperitoneal air is identified. There is a small to moderate amount of ascites No distal ureteral or bladder calculi are seen. The bladder is decompressed. There is prominence of the bladder wall that may be due to the decompressed state. The iliac arteries are of normal caliber. No pelvic adenopathy is noted. There are unchanged compression fractures of the L3 and L4 vertebral bodies. No focal osseous lesion is seen Impression: 1. New 3 cm area of altered enhancement in the upper right kidney, most likely due to pyelonephritis 2. Apparent mild wall thickening of the right renal pelvis, which may also be due to infection 3. Bilateral renal calculi and left renal cysts 4. Cirrhosis and portal hypertension 5. Splenomegaly 6. Small to moderate amount of ascites 7. Small hepatic cysts 8. Cholelithiasis without evidence of acute cholecystitis 9. Unchanged foreign body within the gastric lumen 10. Apparent mild colonic wall thickening. This could be due to secondary edema from hypoalbuminemia, though infectious colitis or inflammatory bowel disease is also possible ACT 112: Positive. There are findings on this exam that require communication between the performing entity and the patient following Patient Test Result [place] Act ([place] ACT 112) [place]. Electronically signed by Kaiden Greenberg 07-13-2025 7:21 PM Chest CTA 07/13/25 17:22 Clinical history: Weakness and shortness of breath Technique: Axial computed tomography images were obtained of the chest after the administration of intravenous contrast according to the CT angiogram protocol Comparison is made to the prior CT dated 12/10/2023 Findings: There is no definite sign of pulmonary embolism. There is bilateral lower lobe atelectasis. There is no pneumothorax. There are new small bilateral pleural effusions. No endobronchial lesion is seen There is no mediastinal, hilar, or axillary adenopathy. The thoracic aorta appears unremarkable with no sign of aneurysm or dissection. There is no pericardial effusion. There is coronary atherosclerosis No fracture is seen. No focal osseous lesion is evident Impression: 1. No definite sign of pulmonary embolism 2. Small bilateral pleural effusions and bilateral lower lobe atelectasis 3. Coronary atherosclerosis Electronically signed by Kaiden Greenberg 07-13-2025 7:[address] 07/13/25 17:22 Technique: Axial computed tomography images were obtained of the brain from the vertex to the skull base without intravenous contrast. Findings: There is no sign of intracranial hemorrhage. There is normal villavicencio-white matter differentiation with no sign of acute or old infarction. No midline shift or other form of herniation is identified. There is no hydrocephalus. No obvious mass lesion is seen on this noncontrast examination. The visualized portions of the orbits and paranasal sinuses appear unremarkable. The mastoid air cells appear clear Impression: Unremarkable noncontrast CT of the brain Electronically signed by Kaiden Greenberg 07-13-2025 7:07 PM
[2025-07-13] MEDS: ALBUMIN 25% 25 GM/100 ML VIAL IV ONE ×2 (20:43→23:11)
[2025-07-13 20:55] LABS: Creatine Kinase 34.0 U/L (26-192)
[2025-07-13] MEDS: MIDODRINE HCL 2.5 MG TAB PO STA (22:14)
[2025-07-13 22:35] LABS: Appearance Urine Cloudy (Clear); Epithelial Cell Urine Auto 0-2 /hpf (0-2); Glucose Urine UA Negative (Negative); WBC Urine Automated >50 /hpf (0-5)
[2025-07-13 22:43] LABS: Bacteria Urine Automated 3+ (None Seen)
[2025-07-13] MEDS: Patient's HEIGHT &/or WEIGHT Needed STA (22:50)
[2025-07-13] MEDS: LACTULOSE SYRUP 20 GM/30 ML UDC PO SCH (23:12)
[2025-07-14] MEDS: MIDODRINE HCL 2.5 MG TAB PO ONE (03:05)
[2025-07-14] MEDS: POTASSIUM CHLORIDE CRTAB 20 MEQ TABCR PO STA (05:19)
[2025-07-14] MEDS: ALBUMIN 25% 25 GM/100 ML VIAL IV ONE ×2 (05:19→22:28)
[2025-07-14] MEDS: CEFEPIME 1000MG 1,000 MG/10 ML SYR IV SCH (05:20)
[2025-07-14 05:40] LABS: A calco-baum cmplx NotReported Not Detected (NotDetected); Bact fragilis Not Reported Not Detected (NotDetected); Blood Culture Id Panel See PCR Comment (NotDetected); C auris Not Reported Not Detected (NotDetected); CTX-M Resistant Gene Not Detected (NotDetected); Calbicans Not Reported Not Detected (NotDetected); Candida glabrata Not Reported Not Detected (NotDetected); Candida krusei Not Reported Not Detected (NotDetected); Cneoformans/gatti Not Reported Not Detected (NotDetected); Cparapsilosis Not Reported Not Detected (NotDetected); Ctropicalis Not Reported Not Detected (NotDetected); E cloacae compx Not Reported Not Detected (NotDetected); Efaecalis Not Reported Not Detected (NotDetected); Efaecium Not Reported Not Detected (NotDetected); Enterobacterales DETECTED (NotDetected); Enterobacterales Not Reported DETECTED (NotDetected); Escherichia coli Not Reported DETECTED (NotDetected); H influenzae Not Reported Not Detected (NotDetected); IMP Resistant Gene Not Detected (NotDetected); K aerogenes Not Reported Not Detected (NotDetected); KPC Resistant Gene Not Detected (NotDetected); Koxytoca Not Reported Not Detected (NotDetected); Kpneumoniae grp Not Reported Not Detected (NotDetected); Lmonocyt Not Reported Not Detected (NotDetected); N meningitidis Not Reported Not Detected (NotDetected); NDM Resistant Gene Not Detected (NotDetected); OXA 48 Like Resistant Gene Not Detected (NotDetected); P aeruginosa Not Reported Not Detected (NotDetected); Proteus spp Not Reported Not Detected (NotDetected); Salmonella spp Not Reported Not Detected (NotDetected); Staph lugdunensis Not Reported Not Detected (NotDetected); Staph spp. Not Reported Not Detected (NotDetected); Staphaureus Not Reported Not Detected (NotDetected); Staphepi Not Reported Not Detected (NotDetected); Stenmaltophilia Not Reported Not Detected (NotDetected); Strep agal(GrpB) Not Reported Not Detected (NotDetected); Strep pneum Not Reported Not Detected (NotDetected); Strep pyog (GrpA) Not Reported Not Detected (NotDetected); Strep spp Not Reported Not Detected (NotDetected); VIM Resistant Gene Not Detected (NotDetected); mcr-1 Colistin Resistant Gene Not Detected (NotDetected)
[2025-07-14] MEDS ORDERED: ALBUMIN 25% 25 GM/100 ML VIAL IV SCH (06:00)
[2025-07-14] MEDS: FERROUS SULFATE 325 MG TAB PO SCH (08:34)
[2025-07-14] MEDS: MULTIVITAMIN TAB PO SCH (08:35)
[2025-07-14] MEDS: MIDODRINE HCL 2.5 MG TAB PO SCH (08:35)
[2025-07-14] MEDS: FOLIC ACID 1 MG TAB PO SCH (08:35)
[2025-07-14] MEDS: FLUTICASONE PROPIONATE NA SPR 16 GM BTL SCH (08:36)
[2025-07-14 09:00] LABS: Hematocrit (blood only) 23.8 % (37.0-47.0); Hemoglobin 7.2 g/dl (12.0-16.0); Immature Granulocytes # (auto) 0.10 K/uL (0.01-0.20); Immature Granulocytes % (auto) 1.4 %; Mean Corpuscular Hemoglobin 31.3 pg (25.0-34.0); Mean Corpuscular Volume 103.5 fL (80.0-100.0); Platelet Count 47 K/uL (130-400); RDW Standard Deviation 93.4 fL (36.4-46.3); Red Blood Count 2.30 M/uL (4.20-5.40); White Blood Count 6.98 K/ul (4.8-10.8)
[2025-07-14 09:08] LABS: Alanine Aminotransferase 25.0 U/L (7-52); Albumin Level 3.2 gm/dl (3.4-5.0); Alkaline Phosphatase 135.0 U/L (34-104); Anion Gap 13.0 (3-11); Bilirubin,Total 17.8 mg/dl (0.2-1.0); Blood Urea Nitrogen 41.0 mg/dl (6-23); Calcium 8.3 mg/dl (8.6-10.3); Carbon Dioxide 16.0 mmol/L (21-32); Chloride 109.0 mmol/L (98-107); Creatinine Clr Calc Pharmacy 31.8 ml/min; Glucose 142.0 mg/dl (70-99(Fasting)); Magnesium 2.3 mg/dl (1.7-2.4); Potassium 3.9 mmol/L (3.5-5.1); Sodium 138.0 mmol/L (136-145); Total Protein 6.7 gm/dl (6.0-8.3)
[2025-07-14 09:30] LABS: Anisocytosis Present; Polychromasia 3+
[2025-07-14] MEDS ORDERED: SODIUM CHLORIDE 0.9% 100 ML IV PRN (12:16)
--- NOTE | 2025-07-14 13:12 | Gastrointestinal Consultation ---
Date of Consultation July 14, 2025 Assessment & Plan (1) Hepatic encephalopathy: (2) Cirrhosis: Plan -2 gm Na restricted diet -Continue Lactulose and titrate with a goal of 3-4 bowel movements daily; Could also add Xifaxan 550 mg BID. -Continue to trend MELD score -Continue to monitor LFTs -Continue to monitor kidney function--consider nephrology eval if not improving -Treatment of pyelonephritis/sepsis/elevated troponins per primary team -Will need ongoing hepatology care on d/c with Dr. Dorado -Please refer to Dr. Tolentino's attending physician statement for additions/revisions to the plan of care. Supervising Physician Co-Signing Physician Notes Worsening hepatic function related to urosepsis. Management is of the infection. Hemoglobin 7.1. Could benefit from a unit of blood. Clinically there is no gastrointestinal bleeding. She has only mild ascites so this is not likely SBP. Hopefully with resolution of infection her hepatic function returned to her baseline. Patient is orientated to person place and time on examination at the bedside this evening. Agree with current management History of Present Illness Reason for Consultation: "decompensated cirrhosis" Attending Physician: Tai Multani MD History of Present Illness Patient is a 64 yo female here for sepsis/pyelonephritis. GI has been consulted for "decompensated cirrhosis." Patient follows with outpatient hepatology (Dr. 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 In the ED, she was found to have elevated troponin and a procalcitonin. Her ammonia was slightly elevated on admission. Her T bili is 17.8, D bili 6.9, AST 50, ALT 25. BUN/Cr 41/1.91. INR 1.4. She denies n/v. She notes 3-4 bowel movements daily. She denies abdominal pain. She is noted to have kidney dysfunction and was found to have acute hypoxemic respiratory failure with bilateral pleural effusions and imaging. She has a history of right sided heart failure and presented with signs of volume overload. In March, patient had an EGD at [facility] that showed grade 1 esophageal varices and portal hypertensive gastropathy. She was recently in the ED for anemia and was transfused. No GI bleeding at that time. Current H/H is 8.8/23.8. No alcohol consumption. Sodium intake unclear. A preliminary PCR was positive for Enterobacterales & E coli. MELD score: 27. CT abdomen/pelvis: Impression: 1. New 3 cm area of altered enhancement in the upper right kidney, most likely due to pyelonephritis 2. Apparent mild wall thickening of the right renal pelvis, which may also be due to infection 3. Bilateral renal calculi and left renal cysts 4. Cirrhosis and portal hypertension 5. Splenomegaly 6. Small to moderate amount of ascites 7. Small hepatic cysts 8. Cholelithiasis without evidence of acute cholecystitis 9. Unchanged foreign body within the gastric lumen 10. Apparent mild colonic wall thickening. This could be due to secondary edema from hypoalbuminemia, though infectious colitis or inflammatory bowel disease is also possible Allergies Allergy/AdvReac Type Severity Reaction Status Date / Time gluten Allergy Unknown Unknown Verified 07/13/25 21:48 Home Medications Medication Instructions Recorded Confirmed Type furosemide 40 mg tablet 40 mg PO DAILY 03/17/25 07/13/25 History lactulose 10 gram/15 mL oral 30 ml PO TID 03/17/25 07/13/25 History solution (Constulose) sildenafil (pulm.hypertension) 20 40 mg PO TID 03/17/25 07/13/25 History mg tablet ferrous sulfate 325 mg (65 mg 325 mg PO DAILY 06/08/25 07/13/25 History iron) tablet folic acid 1 mg tablet 1 mg PO DAILY 06/08/25 07/13/25 History vitamin A 3,000 mcg (10,000 unit) 3,000 mcg PO DAILY 06/08/25 07/13/25 History capsule fluticasone propionate 50 2 spray intranasal QAM 07/13/25 07/13/25 History mcg/actuation nasal spray,suspension multivitamin 1 tab PO QAM 07/13/25 07/13/25 History pantoprazole 40 mg tablet,delayed 40 mg PO QAM 07/13/25 07/13/25 History release selexipag 200 mcg (140)-800 mcg 1 ea PO UD 07/13/25 07/13/25 History (60) tablets in a dose pack (Uptravi) selexipag 200 mcg tablet (Uptravi) 200 mcg PO TID 07/13/25 07/13/25 History zinc glycinate 20 mg capsule 20 mg PO DAILY 07/13/25 07/13/25 History Patient History Medical History Anxiety URI, acute Abnormal ECG SOB (shortness of breath) on exertion Elevated troponin I level Abnormal EKG Chest pain COVID-19 Encounter for pre-operative examination Cough Vertigo Pneumonia Tobacco abuse Pulmonary nodules Anemia Elevated bilirubin Right heart failure due to pulmonary hypertension Cirrhosis Pulmonary hypertension F/U WITH PULM MEDICINE AT [facility]- DR CRUZ DUMONT AND DR MAYO ([facility]) Surgical History History of tubal ligation History of D&C Nausea and vomiting after administration of anesthetic agent Family History Mother Coronary heart disease CABG in 70s Alzheimer disease Father Coronary heart disease CABG in 70s Family history of diabetes mellitus Brother Family history of diabetes mellitus Other Hypertension Myocardial infarction Social History Smoking Status: Unknown if ever smoked packs per day: 10; Second Hand Exposure: No; Do You Dip or Chew Tobacco: No; Hx Alcohol Use: No Hx Substance Use: No Preferred Language: Montenegrin Communication Ability: Effective Unit Manager Required: No Beliefs That Will Affect Care: None marital status: Current Living Situation: Family Current Living Situation Comment: Lives with daughter Feels Safe at Home: Yes Safety Concerns: Feels Safe At This Time Assistive Devices: None Review of Systems Constitutional: + weakness Respiratory: no cough and no dyspnea Cardiovascular: no chest pain Gastrointestinal: no abdominal pain, no diarrhea/loose stools and no melena Physical Exam Constitutional: WD/WN, vitals as above Respiratory: normal respiratory effort, lungs clear to auscultation Cardiovascular: Rate/Rhythm: regular rate Gastrointestinal (Abdomen): normal bowel sounds, soft, nontender, no hepat osplenomegaly Psychiatric: Orientation: alert and oriented x 3 Results & Data Vital Signs (Past 12 Hours) Vital Signs Temp Pulse Resp BP BP Pulse Ox O2 Del Method 07/14/25 11:44 36.8 C 105 H 18 91/61 L 95 Nasal Cannula 07/14/25 07:54 36.4 C L 110 H 18 106/71 95 Room Air 07/14/25 05:00 102 H 87/60 L 07/14/25 03:45 103 H 24 90/61 L 95 Nasal Cannula 07/14/25 02:03 37 C 106 H 24 84/56 L 95 Nasal Cannula O2 Flow Rate 07/14/25 11:44 2 07/14/25 07:54 07/14/25 05:00 07/14/25 03:45 3 07/14/25 02:03 3 PG Care Time/CCT Total # of Minutes Spent Total Time Spent with Patient: Total time spent is greater than 50% in coordination of care (as documented) at patient's floor/unit and/or counseling patient: Coding Level of Care Code 13618 IN/OBS CONSULT LVL 4,60M Diagnoses Hepatic encephalopathy K76.82 Cirrhosis K74.60
[2025-07-14] MEDS: ALBUMIN 25% 25 GM/100 ML VIAL IV SCH (13:19)
[2025-07-14] MEDS: SODIUM CHLORIDE 0.9% 1,000 ML IV ONE (13:23)
--- NOTE | 2025-07-14 13:41 | XCELERA ---
[id number]
--- NOTE | 2025-07-14 14:48 | Hospitalist Progress Note ---
Date of Service July 14, 2025 Assessment & Plan (1) Severe sepsis: Plan: Sepsis Acute pyelonephritis Gram-negative bacteremia Lactic acidosis--chronic likely multifactorial due to infection, hepatorenal failure --CT ABD: New 3 cm area of altered enhancement in the upper right kidney, most likely due to pyelonephritis. Apparent mild wall thickening of the right renal pelvis, which may also be due to infection. Bilateral renal calculi and left renal cysts. Cirrhosis and portal hypertension. Splenomegaly Small to moderate amount of ascites. Small hepatic cysts . Cholelithiasis without evidence of acute cholecystitis . Unchanged foreign body within the gastric lumen. Apparent mild colonic wall thickening. This could be due to secondary edema from hypoalbuminemia, though infectious colitis or inflammatory bowel disease is also possible --Blood Cultures:10/19: Growing gram-negative bacilli --Urine culture pending Continue IV Rocephin Continue IV fluids Also started on midodrine to help with hypotension Decompensated cirrhosis H/O MAFLD Elevated ammonia levels CT scan as above Monitor MELD score Continue lactulose to titrate to 3-4 good bowel movements per day Low-sodium diet Appreciate GI input Needs follow-up with hepatology Dr. Dorado on discharge Avoid hepatotoxic agents as able Possible Hepatorenal syndrome Hold Lasix Avoid hepatotoxic agents as able Sildenafil on hold due to hypotension Monitor urine output Nephrology consulted Troponin elevation Likely due to renal dysfunction/sepsis Denies any chest pain Echo showed no wall motion abnormality next Severe pulmonary hypertension Severe tricuspid regurgitation --ECHO: Right ventricle severely dilated. Right ventricle systolic function is moderately reduced. Right atrium severely dilated. Left ventricular cavity is small. EF 65 to 70%. Flattened septum consistent with RV pressure/volume overload. Severe tricuspid regurgitation. Severe pulmonary hypertension is present. Compared to prior study, no significant change. --Resume home medications as able Acute hypoxemic respiratory failure Nocturnal hypoxemia CTA showed no PE. Small bilateral pleural effusions, atelectasis. Supplemental oxygen as needed. Resume diuretics as able Incentive spirometry Chronic pancytopenia secondary to liver disease Anemia of chronic disease Monitor H&H and transfuse as needed Hyperglycemia HbA1c pending Prolonged QTc Avoid QTc prolonging meds Monitor Ambulatory dysfunction Bedbound at baseline per patient Hyperglycemia ro DM past tobacco abuse Metallic foreign body gastric lumen on CT scan Thought to be metallic clip Also documented on prior imaging, records DVT Px: SCDs Re: Thrombocytopenia, history of GI bleed CODE STATUS Full code Admission and Anticipated Discharge Date Admission Date: July 13, 2025 Subjective Patient is seen and examined at bedside States having dysuria, hematuria resolved Also reports generalized weakness, dizziness and dyspnea on exertion Denies any bleeding issues currently Review of Systems Review of Systems: All systems reviewed & are unremarkable except as noted in Subjective Physical Exam Physical Exam: Physical Exam: Vitals signs as noted above General Appearance:Moderately built and nourished, no apparent distress, chronic ill appearing Head: normocephalic, Atraumatic Eyes: normal inspection, EOMI Neck: supple, Trachea midline Respiratory/Chest: Decreased breath sounds, CTA, No accessory muscle use Cardiovascular: S1, S2, No murmur, Tachycardia Abdomen/GI:Soft, mildly distended, Non tender, Bowel sounds present Extremities/Musculoskeletal:normal inspection, Trace edema Neurologic/Psych:AAOX3, grossly no focal neurological deficits Skin: normal color, warm,+Jaundice Results & Data Results & Data Vital Signs (Past 12 Hours) Vital Signs Temp Pulse Resp BP BP Pulse Ox O2 Del Method 07/14/25 13:18 110 H 36 H 98/67 L 96 Nasal Cannula 07/14/25 11:44 36.8 C 105 H 18 91/61 L 95 Nasal Cannula 07/14/25 07:54 36.4 C L 110 H 18 106/71 95 Room Air 07/14/25 05:00 102 H 87/60 L 07/14/25 03:45 103 H 24 90/61 L 95 Nasal Cannula O2 Flow Rate 07/14/25 13:18 3 07/14/25 11:44 2 07/14/25 07:54 07/14/25 05:00 07/14/25 03:45 3 Laboratory Results Short CBC 07/13/25 07/14/25 Range/Units 17:03 08:19 WBC 8.77 6.98 (4.8-10.8) K/ul Hgb 8.0 L 7.2 L (12.0-16.0) g/dl Hct 26.2 L 23.8 L (37.0-47.0) % Plt Count 48 L 47 L (130-400) K/uL BMP 07/13/25 07/14/25 17:03 08:19 Sodium 133 L 138 Potassium 3.9 3.9 Chloride 105 109 H Carbon Dioxide 17 L 16 L BUN 34 H 41 H Creatinine 1.66 H 1.91 H Glucose 146 H 142 H Calcium 8.4 L 8.3 L Cardiac Enzymes 07/13/25 Range/Units 18:51 Total Creatine Kinase 34 (26-192) U/L Liver Function 07/13/25 07/13/25 07/14/25 Range/Units 17:03 18:51 08:19 Total Bilirubin 17.3 H 17.8 H (0.2-1.0) mg/dl Direct Bilirubin 6.6 H 6.1 H 6.9 H (0-0.2) mg/dl AST 53 H 50 H (13-39) U/L ALT 26 25 (7-52) U/L Alkaline Phosphatase 185 H 135 H (34-104) U/L Albumin 2.5 L 3.2 L (3.4-5.0) gm/dl Urine 07/13/25 Range/Units 22:10 Urine Color Dark Yellow Urine Appearance Cloudy A (Clear) Urine pH 5.5 (4.5-7.5) Ur Specific [place] > 1.045 H (1.000-1.030) Urine Protein 2+ H (Negative) Urine Glucose (UA) Negative (Negative)
[2025-07-14 15:07] LABS: Hematocrit (blood only) 23.2 % (37.0-47.0); Hemoglobin 7.1 g/dl (12.0-16.0)
[2025-07-14 15:16] LABS: Creatinine Clr Calc Pharmacy 28.5 ml/min
--- NOTE | 2025-07-14 15:43 | Electrocardiogram Report ---
Test Reason : Blood Pressure : */* mmHG Vent. Rate : 102 BPM Atrial Rate : 102 BPM P-R Int : 136 ms QRS Dur : 108 ms QT Int : 380 ms P-R-T Axes : 55 73 267 degrees QTcB Int : 495 ms Sinus tachycardia Incomplete right bundle branch block Abnormal ECG When compared with ECG of 24-Jun-2025 23:29, Incomplete right bundle branch block is now Present T wave inversion more evident in Inferior leads QT has lengthened Confirmed by Clyde Rosa ([id number]) on 07/14/2025 3:43:21 PM Referred By: REFERRED SELF Confirmed By: Clyde Rosa
[2025-07-14] MEDS: cefTRIAXone SODIUM 2,000 MG/50 ML BAG IV SCH (17:08)
[2025-07-14] MEDS ORDERED: Nursing to Pharmacy Communication SCH (18:00)
[2025-07-14] MEDS: LEVALBUTEROL 1.25 MG/3 ML NEB NEB PRN (18:14)
[2025-07-14] MEDS: ACETAMINOPHEN 500 MG TAB PO PRN (19:03)
[2025-07-14] MEDS: PROMETHAZINE 6.25 MG/50.25 ML BAG IV PRN (20:08)
[2025-07-14] MEDS: MIDODRINE HCL 2.5 MG TAB PO STA (21:37)
--- NOTE | 2025-07-14 22:35 | Communication Note ---
Date of Service: July 14, 2025 Made aware of persistent hypotension, SBP 80s. Patient intermittently lethargic and SOB on exertion as per RN. IVF held earlier due to fluid overload concerns. Lactic acid 2.5 from 2.9 in a.m. AP Septic shock Decompensated cirrhosis Possible HRS ICU transfer to facilitate pressor Rx
[2025-07-14] MEDS ORDERED: STAT IV Infusion **Titration per Protocol STA (22:38)
[2025-07-14] MEDS: NOREPINEPHRINE/D5W 4 MG/250 ML PLCT IV SCH (23:19)
[2025-07-14 23:24] LABS: Hematocrit (blood only) 23.9 % (37.0-47.0); Hemoglobin 7.1 g/dl (12.0-16.0)
[2025-07-14 23:49] LABS: Albumin Level 3.3 gm/dl (3.4-5.0); Anion Gap 13.0 (3-11); Bilirubin,Total 17.4 mg/dl (0.2-1.0); Calcium 8.5 mg/dl (8.6-10.3); Carbon Dioxide 14.0 mmol/L (21-32); Chloride 110.0 mmol/L (98-107); Potassium 3.9 mmol/L (3.5-5.1); Sodium 137.0 mmol/L (136-145)
[2025-07-14 23:53] LABS: INR 1.7 (0.9-1.1); Prothrombin Time 17.0 Seconds (9.0-12.0)
[2025-07-14 23:55] LABS: Alanine Aminotransferase 31.0 U/L (7-52); Albumin Globulin Ratio 1.1 (0.9-2); Alkaline Phosphatase 127.0 U/L (34-104); Blood Urea Nitrogen 53.0 mg/dl (6-23); Creatinine Clr Calc Pharmacy 25.3 ml/min; Globulin 3.1 gm/dl (2.5-4.0); Glucose 134.0 mg/dl (70-99(Fasting)); Total Protein 6.4 gm/dl (6.0-8.3)
[2025-07-15] MEDS: LACTULOSE SYRUP 20 GM/30 ML UDC PO ONE (00:33)
[2025-07-15 00:41] LABS: iSTAT Art Bld Gas Base Excess -12.0 mmol/L (-9-1.8); iSTAT Art Bld Gas pCO2 Correct 23 mmHg (35-46); iSTAT Art Bld Gas pH Corrected 7.375 (7.35-7.45); iSTAT Arterial Blood Gas pO2 C 31
[2025-07-15] MEDS: SODIUM BICARB 8.4% INJ 50 MEQ/50 ML SYR IV ONE (00:52)
[2025-07-15] MEDS: SODIUM BICARB 8.4% INJ 50 MEQ/50 ML SYR IV STA (00:53)
--- NOTE | 2025-07-15 00:57 | XRay Report ---
Exam(s): XR CXR 1 VIEW EXAM: XR Chest, 1 View CLINICAL HISTORY: Reason for exam: tachypnea. TECHNIQUE: Frontal view of the chest. COMPARISON: 07/13/2025 FINDINGS: Lungs: Mild basilar opacities. Pleural space: Trace pleural effusions. No pneumothorax. Heart: Stable mild cardiomegaly. Bones/joints: No acute fracture. No dislocation. Vasculature: Enlarged central pulmonary arteries suggesting pulmonary arterial hypertension. IMPRESSION: 1. Mild basilar opacities. Atelectasis is favored. 2. Enlarged central pulmonary arteries suggesting pulmonary arterial hypertension. 3. Trace pleural effusions. Electronically signed by: Dylan Hurtado M.D. 07/15/25 00:56 AM
--- NOTE | 2025-07-15 01:17 | Procedure Note ---
Procedure Note Date of Service July 15, 2025 INTERNAL JUGULAR CENTRAL LINE PROCEDURE NOTE: Procedure: Internal Jugular Central Line Placement Attending: Dr. Landeros APC/Proceduralist: Serina Cardona PA-C Indication: Central Drug Administration, Poor Venous Access, Multiple Lab Draws Necessary, etc. Anesthesia: Lidocaine 1% Consent was signed and placed on the chart prior to procedure. Indication, risks, and benefits were explained at length. A time-out was completed verifying correct patient, procedure, site, positioning, and implants(s) or special equipment if applicable. Patients R Neck was cleansed and draped in the typical sterile fashion using Chloraprep. The Internal Jugular Vein and Carotid Artery were identified using ultrasound. The superficial tissue was anesthetized using 4 mL of 1% lidocaine without epinephrine under direct visualization with the ultrasound. After adequate anesthetization was achieved, the Internal Jugular vein was cannulated under direct ultrasound guidance using an introducer needle on a syringe. Good venous blood return was maintained prior to removal of syringe from introducer needle. Using Seldinger Technique, a guide wire was advanced through the introducer needle without resistance. The introducer needle was removed and multiple views of the guide wire within the Internal Jugular Vein were visualized. A small incision was made in penetrating fashion at the guide wire insertion site utilizing an 11 blade scalpel. The dilator was advanced to the vessel without resistance. The dilator was exchanged for the triple lumen catheter which was advanced into the vessel without resistance. The guide wire was removed intact from the catheter without issue. Claves were placed on each catheter tip with confirmation of good blood flow from each lumen. Each port was easily flushed with sterile saline. The catheter was placed at 16cm and sutured in place. A sterile CHG-embedded Tegaderm dressing was applied over the catheter with careful attention to sterility. Patient tolerated procedure well. No immediate complications were met. Post procedure x-ray was completed, placement was appropriate and no pneumothorax was noted. Supervising Physician Co-Signing Physician Notes I, Jaya Landeros MD, was made aware of the indications for the procedure performed by the Advanced Care Provider Kierra Cardona PA-C. I discussed the case with them, confirmed the findings, and I concurred with the proposed plan o f care. I was available for assistance and provided guidance as needed. [facility] Procedure Codes (Charges) Tubes, Drains, and Vasc Access Procedure 1: Tubes, Drains, and Vasc Access: [id number] Place catheter in vein superior or inferior vena cava Coding CPT Codes Tubes, Drains, and Vasc Access - Tubes, Drains, and Vasc Access: [id number] Place catheter in vein superior or inferior vena cava ([id number]) Additional Codes Date of Service ([facility].[email or web address])
--- NOTE | 2025-07-15 02:10 | Critical Care Consultation ---
Date of Consultation July 15, 2025 Assessment & Plan (1) Shock: (2) Severe sepsis: (3) Pyelonephritis: (4) Chronic liver disease: (5) Pulmonary hypertension: (6) Pancytopenia: (7) Hyperbilirubinemia: (8) Acute on chronic anemia: (9) Pancytopenia: (10) Right heart failure due to pulmonary hypertension: Plan Reason Critically Ill: 1. Shock, multifactorial 2. Decompensated RV failure 3. Worsening hyperbilirubinemia 4. Pyelonephritis 5. Severe sepsis 2/2 Enterobacter 6. Acute renal failure on chronic kidney disease 7. Mixed gap acidosis 2/2 malperfusion, #6, and hyperchloremia 8. Lactic acidosis 9. Hyperammonemia 10. Acute on chronic anemia Neuro - [facility] ICU: Negative RASS GOAL 0 Avoid sedating medications APAP 3g limit QD Cardiac - CVP trend, BNP both indicative of hypervolemia Shock likely with cardiogenic component i/s/o RHF Consider diuresis today, will defer to Nephrology Continue norepinephrine for MAP goal CVP+60 (75mmHg) Respiratory - Can consider HFNC for work of breathing HOB 30, aspiration precautions CXR as above SpO2 goal 92% IS/Flutter GI - Narrow pulse pressure makes hepatorenal syndrome less likely GI on board, appreciate continued recommendations Patient states her BMs have been very small. Will continue lactulose for 2-3 moderate BM QD Diet: Low sodium SUP: PPI Bowel regimen: Lactulose Trend ammonia RENAL/LYTES - Clinical picture most consistent with prerenal ATN/congestive nephropathy, especially given patient has received large volume albumin challenge over the past 2 days with continued clinical decline, making HRS less likely Trend Cr Nephrology consult, appreciate recommendations Replete electrolytes as indicated Delgado for accurate I/Os Maintain net even to net negative ENDO - Cortisol 50 BG 140-180 per SCCM guidelines ISS if needed while inpatient HEME - Thrombocytopenia Anemia Last HGB 7.1, goal is > 7. Transfuse as indicated ID - Source is urinary. Considered bacterial gut translocation but abdomen is benign. OK to continue Rocephin, tailor antibiotics to culture data and sensitivities Repeat BC this AM to ensure clearance MRSA nares negative LINES/TUBES/DRAINS - PIV x2 RIJ CVC (Day #1) Delgado (Day #3) DVT PROPHYLAXIS - Start if PLT > 50K I have personally spent 62 minutes of critical care time in the direct management of this patient. This is a life/limb threatening event. This includes time spent evaluating patient, direct bedside care, chart review, placing orders, interpretation of diagnostic studies, discussion with consultants, patient, and family members, as well as other required patient management activities. This time is exclusive of all separately billable procedures, and teaching time and separate from and in addition to any other critical care service time. Thank you for allowing us to participate in the care of this patient. Please refer to my attending physician's documentation for any further recommendations. Supervising Physician Co-Signing Physician Notes I, Jaya Landeros MD, reviewed the physical exam, assessment, plan, and management as documented by the Advanced Care Provider Kierra Cardona PA-C, for this patient encounter. I discussed the case with them, confirmed the findings, and I concur with the proposed plan of care. I was available for consultation throughout the encounter and provided guidance as needed. History of Present Illness Reason for Consultation: Hypotension Requesting Physician: Hospitalist Attending Physician: Tai Multani MD History of Present Illness Ms. Marianne Chand is a pleasant 64YOF with a complex past medical history who was admitted to [facility] on 07/13/2025 due to pyelonephritis. BC x2 + for GNR. Placed on Rocephin. Course complicated by hypotension for which she was started on midodrine. Selexipag and sildenafil held. Furosemide held. Renal indices worsening, she was provided albumin and crystalloid infusions without improvement. Bilirubin continues to climb, now nearly 18. Latest Cr 2.4. Lactic acidosis. Anemic without signs of GI bleeding. Seen by GI on 07/14, Xifaxan started. Transferred to ICU due to refractory hypotension. Patient seen in ICU 109. She is AAOx3. Pleasant and conversant. Some shortness of breath. Saturating well on 3L NC O2. BP improved on norepinephrine, dose at 0.11mcg/kg/min. CVC placed and CVP assessed, ranging from 13-17. POCUS performed showing dilated RV and RA, dilated and non-collapsible IVC, LV small chamber size with grossly normal LVEF, septal flattening. Valves not assessed. CXR reviewed - atelectasis with small pleural effusions, no central pulmonary edema. Repeat labs show mixed gap acidosis with HCO3 of 14. Cr 2.4 from 2.13 8 hours prior. BUN to 53. LA 3.5 from 2.9. Ammonia 91. Random cortisol 50. BNP 4382. VBG shows compensated metabolic acidosis with pCO2 23. Oliguric with UOP 250cc throughout the day. Delgado remains in place. UOP since 2299 is 65cc, 15cc in last 1 hour. ROS + dyspnea. Otherwise negative, including but not limited to dizziness, headache, n/v, abdominal pain, numbness/paresthesias. Allergies Allergy/AdvReac Type Severity Reaction Status Date / Time gluten Allergy Unknown Unknown Verified 07/13/25 21:48 Home Medications Medication Instructions Recorded Confirmed Type furosemide 40 mg tablet 40 mg PO DAILY 03/17/25 07/13/25 History lactulose 10 gram/15 mL oral 30 ml PO TID 03/17/25 07/13/25 History solution (Constulose) sildenafil (pulm.hypertension) 20 40 mg PO TID 03/17/25 07/13/25 History mg tablet ferrous sulfate 325 mg (65 mg 325 mg PO DAILY 06/08/25 07/13/25 History iron) tablet folic acid 1 mg tablet 1 mg PO DAILY 06/08/25 07/13/25 History vitamin A 3,000 mcg (10,000 unit) 3,000 mcg PO DAILY 06/08/25 07/13/25 History capsule fluticasone propionate 50 2 spray intranasal QAM 07/13/25 07/13/25 History mcg/actuation nasal spray,suspension multivitamin 1 tab PO QAM 07/13/25 07/13/25 History pantoprazole 40 mg tablet,delayed 40 mg PO QAM 07/13/25 07/13/25 History release selexipag 200 mcg (140)-800 mcg 1 ea PO UD 07/13/25 07/13/25 History (60) tablets in a dose pack (Uptravi) selexipag 200 mcg tablet (Uptravi) 200 mcg PO TID 07/13/25 07/13/25 History zinc glycinate 20 mg capsule 20 mg PO DAILY 07/13/25 07/13/25 History Patient History Medical History Anxiety URI, acute Abnormal ECG SOB (shortness of breath) on exertion Elevated troponin I level Abnormal EKG Chest pain COVID-19 Encounter for pre-operative examination Cough Vertigo Pneumonia Tobacco abuse Pulmonary nodules Anemia Elevated bilirubin Right heart failure due to pulmonary hypertension Cirrhosis Surgical History History of tubal ligation History of D&C Nausea and vomiting after administration of anesthetic agent Family History Mother Coronary heart disease CABG in 70s Alzheimer disease Father Coronary heart disease CABG in 70s Family history of diabetes mellitus Brother Family history of diabetes mellitus Other Hypertension Myocardial infarction Social History Smoking Status: Unknown if ever smoked packs per day: 10; Second Hand Exposure: No; Do You Dip or Chew Tobacco: No; Hx Alcohol Use: No Hx Substance Use: No Preferred Language: Prydein[place] Communication Ability: Effective Admission Nurse Required: No Beliefs That Will Affect Care: None marital status: Current Living Situation: Family Current Living Situation Comment: Lives with daughter Feels Safe at Home: Yes Safety Concerns: Feels Safe At This Time Assistive Devices: None Review of Systems Review of Systems: All systems reviewed & are unremarkable except as noted in Subjective Physical Exam Constitutional: + ill appearing, + frail appearing and c ooperative Eyes: PERRL; no nystagmus scleral icterus apparent ENMT: external ear and nose normal, oropharynx normal MM dry Neck: normal visual inspection and trachea midline + JVD Respiratory: + labored breathing, able to speak in co mplete sentences and + tachypneic Auscultation: + diminished lung sounds diminished at bases Cardiovascular: Rate/Rhythm: regular rate and regular rhythm Heart Sounds: + murmur Vessels: + JVD; no carotid bruit Extremities: normal capillary refill; no edema Gastrointestinal (Abdomen): Inspection/Auscultation: abdomen normal to inspection and normal bowel sounds; abdomen not distended Percussion/Palpation: abdomen soft; abdomen nontender, no guarding and abdomen not rigid Musculoskeletal: no cyanosis or clubbing, extremities motor strength 5/5 Skin: no rashes, warm and dry Neurologic: PERRL, EOMI, accommodation nl, no face palsy, no dysarthria Genitourinary: Delgado in place draining scant orange urine Results & Data Results & Data Vital Signs (Past 12 Hours) Vital Signs Temp Pulse Pulse Resp BP BP BP 07/15/25 01:17 124/72 07/15/25 01:17 124/72 07/15/25 01:15 97 H 30 H 07/15/25 01:03 105 H 29 H 07/15/25 01:00 104/74 07/15/25 01:00 104/74 07/15/25 00:45 95 H 28 H 07/15/25 00:45 107/70 07/15/25 00:45 107/70 07/15/25 00:30 99/81 L 07/15/25 00:30 99/81 L 07/15/25 00:30 99/81 L 07/15/25 00:30 96 H 24 07/15/25 00:15 94 H 28 H 07/15/25 00:15 99/73 L 07/15/25 00:15 99/73 L 07/15/25 00:00 92 H 25 H 07/15/25 00:00 87/64 L 07/15/25 00:00 87/64 L 07/15/25 00:00 87/64 L 07/14/25 23:45 90/67 L 07/14/25 23:45 90/67 L 07/14/25 23:45 90/67 L 07/14/25 23:45 93 H 27 H 07/14/25 23:30 93 H 35 H 07/14/25 23:30 101/78 07/14/25 23:30 101/78 07/14/25 23:27 102/70 07/14/25 23:19 84/63 L 07/14/25 23:18 98 H 27 H 07/14/25 22:42 36.6 C 07/14/25 22:35 98 H 15 07/14/25 22:20 36.4 C L 102 H 30 H 86/60 L 07/14/25 20:00 07/14/25 20:00 36.7 C 114 H 23 87/57 L 07/14/25 18:14 101 H 20 07/14/25 15:23 36.5 C 106 H 36 H 95/68 L Pulse Ox O2 Del Method O2 Flow Rate 07/15/25 01:17 07/15/25 01:17 07/15/25 01:15 94 07/15/25 01:03 94 07/15/25 01:00 07/15/25 01:00 07/15/25 00:45 94 07/15/25 00:45 07/15/25 00:45 07/15/25 00:30 07/15/25 00:30 07/15/25 00:30 07/15/25 00:30 07/15/25 00:15 93 07/15/25 00:15 07/15/25 00:15 07/15/25 00:00 94 07/15/25 00:00 07/15/25 00:00 07/15/25 00:00 07/14/25 23:45 07/14/25 23:45 07/14/25 23:45 07/14/25 23:45 93 07/14/25 23:30 95 07/14/25 23:30 07/14/25 23:30 07/14/25 23:27 07/14/25 23:19 07/14/25 23:18 07/14/25 22:42 07/14/25 22:35 94 07/14/25 22:20 96 Nasal Cannula 3 07/14/25 20:00 Nasal Cannula 3 07/14/25 20:00 90 Nasal Cannula 3 07/14/25 18:14 91 Nasal Cannula 3 07/14/25 15:23 95 Nasal Cannula 3 Laboratory Results Reviewed Diagnostic Findings Reviewed Medications Administered See MAR Coding Level of Care Code 80902 IN/OBS CONSULT LVL 4,60M Diagnoses Shock R57.9 Severe sepsis A41.9; R65.20 Pyelonephritis N12 Chronic liver disease K76.9 Pulmonary hypertension I27.20 Pancytopenia D61.818 Hyperbilirubinemia E80.6 Acute on chronic anemia D64.9 Right heart failure due to pulmonary hypertension I27.29; I50.810 Time Spent (min) 62
--- NOTE | 2025-07-15 02:24 | XRay Report ---
EXAM: XR chest 1V portable CLINICAL HISTORY: central IJ TECHNIQUE: An X-ray image of the chest was obtained in AP projection. COMPARISON: 07/13/2025 CT FINDINGS: A central venous line is seen with its tip at the cavoatrial level. Pulmonary Parenchyma: Airspace consolidation is seen in the right lower zone. Minimal blunting of both costophrenic angles is likely due to pleural effusion. There is elevation of the dome of the right hemidiaphragm. Heart and Mediastinum: The heart size and shape are normal. No mediastinal widening or masses are identified. The right hilum appears prominent. Bony Thorax: The bony thorax appears intact without fractures or deformities. Soft Tissues: Soft tissues overlying the chest wall are unremarkable. IMPRESSION: 1. A central venous line is seen with its tip at the cavoatrial level; New 2. Airspace shadowing is seen in the right lower zone. Unchanged. 3. Minimal blunting of both costophrenic angles is likely due to pleural effusion. Unchanged Electronically signed by Josue Gaston 07-15-2025 02:23 AM
[2025-07-15 05:20] LABS: Hematocrit (blood only) 24.0 % (37.0-47.0); Hemoglobin 7.5 g/dl (12.0-16.0); Mean Corpuscular Hemoglobin 32.3 pg (25.0-34.0); Mean Corpuscular Volume 103.4 fL (80.0-100.0); Platelet Count 47 K/uL (130-400); RDW Standard Deviation 91.9 fL (36.4-46.3); Red Blood Count 2.32 M/uL (4.20-5.40); White Blood Count 9.24 K/ul (4.8-10.8)
[2025-07-15 05:33] LABS: Alanine Aminotransferase 35.0 U/L (7-52); Albumin Globulin Ratio 1.3 (0.9-2); Albumin Level 3.6 gm/dl (3.4-5.0); Alkaline Phosphatase 124.0 U/L (34-104); Anion Gap 14.0 (3-11); Bilirubin,Total 18.6 mg/dl (0.2-1.0); Blood Urea Nitrogen 57.0 mg/dl (6-23); Calcium 8.3 mg/dl (8.6-10.3); Carbon Dioxide 17.0 mmol/L (21-32); Chloride 108.0 mmol/L (98-107); Creatinine Clr Calc Pharmacy 24.8 ml/min; Globulin 2.8 gm/dl (2.5-4.0); Glucose 166.0 mg/dl (70-99(Fasting)); Magnesium 2.5 mg/dl (1.7-2.4); Potassium 3.5 mmol/L (3.5-5.1); Sodium 139.0 mmol/L (136-145); Total Protein 6.4 gm/dl (6.0-8.3)
[2025-07-15] MEDS: POTASSIUM CHLORIDE / WTR 20 MEQ/100 ML PLCT IV ONE (05:53)
[2025-07-15 06:09] LABS: INR 1.7 (0.9-1.1); Prothrombin Time 17.7 Seconds (9.0-12.0)
[2025-07-15 07:07] LABS: EAG mmol/L DNR mmol/L; HA1C <4.2 % (<5.7)
--- NOTE | 2025-07-15 07:51 | Nephrology Consultation ---
Date of Consultation July 15, 2025 Assessment & Plan (1) Acute renal failure: worsening now Stage 3 borderline oliguric BRY in the setting of underlying /chronic right heart failure from severe pulmonary hypertension and advanced/complex liver disease. Baseline creatinine is 0.7-0.9. Presented w/ creatinine 1.7 on 07/13 in the evening; up to 2.5 today. Admission urinalysis from July 13 cloudy dark yellow with pH 5.5 with 2+ protein 2+ blood 2+ bilirubin 2+ leukocyte esterase 3+ bacteria with granular casts, greater than 1045 specific gravity. Etiologies include IV contrast exposure, septic shock, pyelonephritis, worsening heart failure/cardiorenal syndrome in addition to underlying cirrhosis. while her liver disease certainly has a role in her renal dysfunction, HRS unlikely here. Admission UA suggests already some degree of ATN prior to admission now c/b further renal ischemia and pyelonephritis. >repeat CT a/p to evaluate for progression/change if any in R renal pelvic wall thickening and abnormal R upper kidney enhancement (mild on personal review of images) > ensure no evolution of this somewhat unusual (and subtle) findings -monitor BMP and lactate at least twice daily for now -keep hgb > 7.5 -no indication at this time for either fluid or diuretic > monitor -needs to continue strict I/O >>cannot rule out need for dialysis in this patient given anuria and multiple renal insults >> anticipate renal function will worsen before it improves; she will be very challenging to dialyze appropriately if need arises; would still consider her a candidate for discussion of dialysis if need arises as she is being evaluated for txplt >>low threshold to consider transfer to [facility] given plm HTN/RHF, liver cirrhosis, worsening renal failure Care coordinated by phone w/ Dr Landeros regarding repeat imaging, fluid /volume status and plan, dialysis concerns; we are in agreement. (2) Shock: combined septic and ?cardiac >> continue levophed as needed (3) Sepsis: lactate 4.6 on admission, remains elevated at 3.1 today. Repeat cultures pending. +E coli septicemia History of Present Illness Reason for Consultation: hepatorenal syndrome Requesting Physician: Dr Multani Attending Physician: Tai Multani MD History of Present Illness 64 y/o F whom I'm asked to see for HRS was admitted 07/13 with E. coli septicemia and presumed pyelonephritis. 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 Per the last [facility] outpatient hepatology note, she is not a liver transplant candidate because of severe cardiopulmonary disease. Patient however tells me that she is under consideration/in work up for liver transplant at [facility]. she takes 40 mg daily lasix as OP. She denies prior hx of UTI including recurrent uti. Wears no O2 at home. She was admitted per review of outpatient notes to an outside hospital in April with hemoglobin of 3.6. She underwent an EGD which showed esophageal varices, portal hypertensive gastropathy, a single bleeding angioectasia in the stomach which was clipped. Colonoscopy showed internal hemorrhoids and a few polyps which were not resected due to concerns about bleeding risk. At that admission she had 6 units of packed red cells and 2 units of FFP. Her baseline creatinine is 0.7-0.9. Presented here w/ creatinine 1.7 on 07/13 in the evening; up to 1.9 the following day and has increased to 2.5 today. She had IV contrast that admission for CT of chest d/t dypsnea. She's been on [id number] consistently since admission. She had 2L NS in ED. She has had 5 doses of albumin this admission as well as another L of NS. 735 mL urine documented so far this admission w/ 3.6L in. She is on a 2L FR. Septicemia is being treated with ceftriaxone. She was moved overnight to the intensive care unit because of concerns about multifactorial shock from sepsis and HF. She is currently being maintained on Levophed and potassium is being repleted. BioFire positive for Enterobacterales and E. coli. Blood cultures from admission positive for E. coli 4 out of 4 bottles. No urine culture obtained at admission. Follow-up blood and urine cultures are pending. She has made 140 mL urine in the past 6 hrs and is getting pRBC today. She denies dyspnea, n/v, chills or fever, worsening sob currently. Tells me she had gross hematuria on 07/11 and had urine tested >> + for E coli on culture and w/ gross hematuria on UA in [facility] system. Was not seen at a clinic visit and did not have interaction w/ clinical teams from what I can see about gross hematuria. She had some mild lower abdominal pains prior to admission (not uncommon for her) some dysuria and shaking chills. Also transient N relieved w/ zofran she had on hand. no flank pain. Allergies Allergy/AdvReac Type Severity Reaction Status Date / Time gluten Allergy Unknown Unknown Verified 07/13/25 21:48 Home Medications Medication Instructions Recorded Confirmed Type furosemide 40 mg tablet 40 mg PO DAILY 03/17/25 07/13/25 History lactulose 10 gram/15 mL oral 30 ml PO TID 03/17/25 07/13/25 History solution (Constulose) sildenafil (pulm.hypertension) 20 40 mg PO TID 03/17/25 07/13/25 History mg tablet ferrous sulfate 325 mg (65 mg 325 mg PO DAILY 06/08/25 07/13/25 History iron) tablet folic acid 1 mg tablet 1 mg PO DAILY 06/08/25 07/13/25 History vitamin A 3,000 mcg (10,000 unit) 3,000 mcg PO DAILY 06/08/25 07/13/25 History capsule fluticasone propionate 50 2 spray intranasal QAM 07/13/25 07/13/25 History mcg/actuation nasal spray,suspension multivitamin 1 tab PO QAM 07/13/25 07/13/25 History pantoprazole 40 mg tablet,delayed 40 mg PO QAM 07/13/25 07/13/25 History release selexipag 200 mcg (140)-800 mcg 1 ea PO UD 07/13/25 07/13/25 History (60) tablets in a dose pack (Uptravi) selexipag 200 mcg tablet (Uptravi) 200 mcg PO TID 07/13/25 07/13/25 History zinc glycinate 20 mg capsule 20 mg PO DAILY 07/13/25 07/13/25 History Patient History Medical History Anxiety URI, acute Abnormal ECG SOB (shortness of breath) on exertion Elevated troponin I level Abnormal EKG Chest pain COVID-19 Encounter for pre-operative examination Cough Vertigo Pneumonia Tobacco abuse Pulmonary nodules Anemia Elevated bilirubin Right heart failure due to pulmonary hypertension Cirrhosis Surgical History History of tubal ligation History of D&C Nausea and vomiting after administration of anesthetic agent Family History Mother Coronary heart disease CABG in 70s Alzheimer disease Father Coronary heart disease CABG in 70s Family history of diabetes mellitus Brother Family history of diabetes mellitus Other Hypertension Myocardial infarction Social History Smoking Status: Unknown if ever smoked packs per day: 10; Second Hand Exposure: No; Do You Dip or Chew Tobacco: No; Hx Alcohol Use: No Hx Substance Use: No Preferred Language: Vietnamese Communication Ability: Effective Pharmaceutical Process Engineer Required: No Beliefs That Will Affect Care: None marital status: Current Living Situation: Family Current Living Situation Comment: Lives with daughter Feels Safe at Home: Yes Safety Concerns: Feels Safe At This Time Assistive Devices: None Review of Systems 2 Review of Systems: All systems reviewed & are unremarkable except as noted in HPI & below Physical Exam 2 Constitutional: well developed (awake, conversant appropriately, eating salad), well nourished and cooperative; no acute distress Eyes: EOM intact bilaterally; sclerae not anicteric ENMT: Mouth: + dry oral mucous membranes Respiratory: normal respiratory effort Auscultation: + diminished lung sounds Cardiovascular: Rate/Rhythm: + tachycardic Extremities: no edema Gastrointestinal (Abdomen): Inspection/Auscultation: normal bowel sounds; abdomen not distended Percussion/Palpation: abdomen soft; abdomen nontender Musculoskeletal: Extremities: strength 5/5 throughout Skin: no rashes, warm and dry Neurologic: strauss, fluent speech, no tremor Results & Data Vital Signs (Past 12 Hours) Vital Signs Temp Pulse Pulse Resp BP BP BP 07/15/25 06:20 88 22 07/15/25 06:15 102/68 07/15/25 06:14 93 H 24 07/15/25 06:02 90 24 07/15/25 06:00 102/73 07/15/25 06:00 102/73 07/15/25 05:59 91 H 25 H 07/15/25 05:45 101/73 07/15/25 05:45 101/73 07/15/25 05:26 89 25 H 07/15/25 05:18 92 H 26 H 07/15/25 05:16 112/79 07/15/25 05:16 112/79 07/15/25 05:16 112/79 07/15/25 05:16 112/79 07/15/25 05:01 92/59 L 07/15/25 05:01 92/59 L 07/15/25 04:54 86 26 H 07/15/25 04:45 88 27 H 07/15/25 04:45 108/78 07/15/25 04:35 92 H 21 07/15/25 04:30 120/86 07/15/25 04:20 93 H 26 H 07/15/25 04:05 95 H 33 H 07/15/25 04:00 102/83 07/15/25 04:00 102/83 07/15/25 04:00 102/83 07/15/25 03:51 91 H 38 H 07/15/25 03:45 106/71 07/15/25 03:45 106/71 07/15/25 03:45 106/71 07/15/25 03:45 106/71 07/15/25 03:45 88 26 H 07/15/25 03:36 86 23 07/15/25 03:30 100/73 07/15/25 03:30 100/73 07/15/25 03:30 100/73 07/15/25 03:26 36.5 C 07/15/25 03:15 107/76 07/15/25 03:09 91 H 24 07/15/25 03:00 108/75 07/15/25 03:00 108/75 07/15/25 02:45 92 H 32 H 07/15/25 02:45 107/75 07/15/25 02:33 92 H 26 H 07/15/25 02:30 108/74 07/15/25 02:30 108/74 07/15/25 02:18 91 H 27 H 07/15/25 02:15 106/76 07/15/25 02:15 106/76 07/15/25 02:15 106/76 07/15/25 02:00 92 H 37 H 07/15/25 02:00 104/68 07/15/25 02:00 104/68 07/15/25 01:45 103/70 07/15/25 01:45 103/70 07/15/25 01:45 103/70 07/15/25 01:45 93 H 24 07/15/25 01:33 93 H 25 H 07/15/25 01:30 101/75 07/15/25 01:21 96 H 28 H 07/15/25 01:18 97 H 23 07/15/25 01:17 124/72 07/15/25 01:17 124/72 07/15/25 01:17 124/72 07/15/25 01:15 97 H 30 H 07/15/25 01:03 105 H 29 H 07/15/25 01:00 104/74 07/15/25 01:00 104/74 07/15/25 00:45 95 H 28 H 07/15/25 00:45 107/70 07/15/25 00:45 107/70 07/15/25 00:30 99/81 L 07/15/25 00:30 99/81 L 07/15/25 00:30 99/81 L 07/15/25 00:30 96 H 24 07/15/25 00:15 94 H 28 H 07/15/25 00:15 99/73 L 07/15/25 00:15 99/73 L 07/15/25 00:00 92 H 25 H 07/15/25 00:00 87/64 L 07/15/25 00:00 87/64 L 07/15/25 00:00 87/64 L 07/14/25 23:45 90/67 L 07/14/25 23:45 90/67 L 07/14/25 23:45 90/67 L 07/14/25 23:45 93 H 27 H 07/14/25 23:30 93 H 35 H 07/14/25 23:30 101/78 07/14/25 23:30 101/78 07/14/25 23:27 102/70 07/14/25 23:19 84/63 L 07/14/25 23:18 98 H 27 H 07/14/25 22:42 36.6 C 07/14/25 22:35 98 H 15 07/14/25 22:20 36.4 C L 102 H 30 H 86/60 L 07/14/25 20:00 07/14/25 20:00 36.7 C 114 H 23 87/57 L Pulse Ox O2 Del Method O2 Flow Rate 07/15/25 06:20 92 07/15/25 06:15 07/15/25 06:14 92 07/15/25 06:02 92 07/15/25 06:00 07/15/25 06:00 07/15/25 05:59 92 07/15/25 05:45 07/15/25 05:45 07/15/25 05:26 92 07/15/25 05:18 92 07/15/25 05:16 07/15/25 05:16 07/15/25 05:16 07/15/25 05:16 07/15/25 05:01 07/15/25 05:01 07/15/25 04:54 92 07/15/25 04:45 91 07/15/25 04:45 07/15/25 04:35 07/15/25 04:30 07/15/25 04:20 07/15/25 04:05 93 07/15/25 04:00 07/15/25 04:00 07/15/25 04:00 07/15/25 03:51 92 07/15/25 03:45 07/15/25 03:45 07/15/25 03:45 07/15/25 03:45 07/15/25 03:45 93 07/15/25 03:36 93 07/15/25 03:30 07/15/25 03:30 07/15/25 03:30 07/15/25 03:26 07/15/25 03:15 07/15/25 03:09 93 07/15/25 03:00 07/15/25 03:00 07/15/25 02:45 93 07/15/25 02:45 07/15/25 02:33 93 07/15/25 02:30 07/15/25 02:30 07/15/25 02:18 93 07/15/25 02:15 07/15/25 02:15 07/15/25 02:15 07/15/25 02:00 94 07/15/25 02:00 07/15/25 02:00 07/15/25 01:45 07/15/25 01:45 07/15/25 01:45 07/15/25 01:45 94 07/15/25 01:33 93 07/15/25 01:30 07/15/25 01:21 93 07/15/25 01:18 93 07/15/25 01:17 07/15/25 01:17 07/15/25 01:17 07/15/25 01:15 94 07/15/25 01:03 94 07/15/25 01:00 07/15/25 01:00 07/15/25 00:45 94 07/15/25 00:45 07/15/25 00:45 07/15/25 00:30 07/15/25 00:30 07/15/25 00:30 07/15/25 00:30 07/15/25 00:15 93 07/15/25 00:15 07/15/25 00:15 07/15/25 00:00 94 07/15/25 00:00 07/15/25 00:00 07/15/25 00:00 07/14/25 23:45 07/14/25 23:45 07/14/25 23:45 07/14/25 23:45 93 07/14/25 23:30 95 07/14/25 23:30 07/14/25 23:30 07/14/25 23:27 07/14/25 23:19 07/14/25 23:18 07/14/25 22:42 07/14/25 22:35 94 07/14/25 22:20 96 Nasal Cannula 3 07/14/25 20:00 Nasal Cannula 3 07/14/25 20:00 90 Nasal Cannula 3 Laboratory Results 07/15/25 05:00 07/15/25 05:[address] abdomen pelvis no contrast at admission 1. New 3 cm area of altered enhancement in the upper right kidney, most likely due to pyelonephritis 2. Apparent mild wall thickening of the right renal pelvis, which may also be due to infection 3. Bilateral renal calculi and left renal cysts 4. Cirrhosis and portal hypertension 5. Splenomegaly 6. Small to moderate amount of ascites 7. Small hepatic cysts 8. Cholelithiasis without evidence of acute cholecystitis 9. Unchanged foreign body within the gastric lumen 10. Apparent mild colonic wall thickening. This could be due to secondary edema from hypoalbuminemia, though infectious colitis or inflammatory bowel disease is also possible CT angio chest 1. No definite sign of pulmonary embolism 2. Small bilateral pleural effusions and bilateral lower lobe atelectasis 3. Coronary atherosclerosis TTE 07/14 severe R/RA dilatation and moderate reduction in systolic function severe plm HTN w/ PASP 95 LV cavity small EF 65-70%
[2025-07-15] MEDS ORDERED: MIDODRINE HCL 2.5 MG TAB PO SCH (08:00)
[2025-07-15 09:25] LABS: Iron 108 mcg/dl (35-150); Transferrin < 95 mg/dl (200-360)
[2025-07-15 09:52] LABS: Folate (Folic Acid),Ser orPlas > 22.30 ng/ml (>5.38)
[2025-07-15 09:52] LABS: Total Protein Urine Random 95.7 mg/dl (0-11.9)
[2025-07-15 09:53] LABS: Vitamin B12 686 pg/ml (180-914)
[2025-07-15] MEDS ORDERED: SODIUM CHLORIDE 0.9% 100 ML IV PRN (10:16)
[2025-07-15] MEDS ORDERED: GLUCAGON FOR INJ 1 MG VIAL SQ PRN (12:01)
[2025-07-15] MEDS ORDERED: GLUCOSE 40% GEL 15 GM TUBE PO PRN (12:01)
[2025-07-15] MEDS ORDERED: GLUCOSE 10 TAB/TUBE PO PRN (12:01)
[2025-07-15] MEDS ORDERED: CARBOHYDRATES FOR HYPOGLYCEMIA PO PRN (12:01)
[2025-07-15] MEDS ORDERED: DEXTROSE 50% 50 ML SYRINGE IV PRN (12:01)
[2025-07-15] MEDS: ERGOCALCIFEROL 1250 MCG (50,000 UNITS) CAP PO SCH (12:03)
[2025-07-15] MEDS: INSULIN ASPART PER UNIT CHARGE SC SCH (12:12)
--- NOTE | 2025-07-15 13:32 | Gastroenterology Progress Note ---
Date of Service July 15, 2025 Assessment & Plan (1) Cirrhosis: (2) Hepatic encephalopathy: Plan -Liver dysfunction appears to be due to underlying infectious process; would advise continuing to address this. -Continue to trend MELD labs; Nephrology following due to worsening kidney function as well. -2 gm Na restricted diet -Avoid NSAIDs; OK to use up to 2 gm Tylenol daily in divided doses. -Patient is headed for a repeat CT scan of the abdomen/pelvis at the time of my visit; We will review results when available. -Please refer to Dr. Tolentino's attending physician statement for further recommendations/additions to the plan of care. Admission and Anticipated Discharge Date Admission Date: July 13, 2025 Supervising Physician Co-Signing Physician Notes Patient now in the unit. Urosepsis. Deterioration hepatic function related to the infection. No active gastrointestinal bleeding. Bilirubin hepatic function staying stable but poor INR 1.7 Continue to monitor hepatic dysfunction. Treatment is of urosepsis. Subjective Patient is a 64 yo female with cirrhosis. She is currently in the ICU due to hypotension related to sepsis. MELD 32. Nephrology following due to worsening kidney function, though pattern does not appear to be in line with HRS at this time. She was found to have a pyelonephritis on CT scan at the time of admission. She has had 2 positive blood cultures for E coli. She is on Ceftriaxone. Overnight she was hypotensive requiring transfer to the ICU for pressors. She had notable lactic acidosis. BNP indicative of hypervolemia. From a GI standpoint, there is currently no evidence for SBP. Small amount of ascites on imaging. She follows with hepatology as an outpatient. She is alert & oriented today. Ammonia is in the 70s. She is moving her bowels. She is on Lactulose and Xifaxan has been added. H/H 7.5/24.0. No overt GI bleeding. Patient is receiving a unit of blood at the time of my visit. Review of Systems Respiratory: no cough and no dyspnea Cardiovascular: no chest pain Gastrointestinal: no constipation Physical Exam Gastrointestinal (Abdomen): Inspection/Auscultation: abdomen normal to inspection Percussion/Palpation: + abdomen tender and abdomen soft; no ascites (not palpable) Skin: + jaundice Results & Data Results & Data Vital Signs (Past 12 Hours) Vital Signs Temp Pulse Resp BP Pulse Ox O2 Del Method O2 Flow Rate 07/15/25 13:00 36.4 C L 100 H 24 109/72 90 3 07/15/25 12:30 36.4 C L 97 H 24 97/73 L 91 3 07/15/25 12:15 36.3 C L 100 H 24 110/88 92 3 07/15/25 11:45 36.4 C L 98 H 22 100/73 92 3 07/15/25 11:12 96 H 25 H 89 L 07/15/25 11:00 95/65 L 07/15/25 10:33 95 H 25 H 88 L 07/15/25 10:30 91/65 L 07/15/25 10:09 98 H 24 89 L Nasal Cannula 2 07/15/25 09:33 98 H 25 H 92 07/15/25 09:30 112/75 07/15/25 09:21 102 H 32 H 92 07/15/25 09:03 96 H 26 H 93 07/15/25 09:00 113/77 07/15/25 08:54 101 H 29 H 93 07/15/25 08:35 117/84 07/15/25 08:33 101 H 29 H 93 07/15/25 08:15 120/86 07/15/25 08:14 97 H 26 H 95 07/15/25 08:02 99 H 28 H 93 07/15/25 08:00 36.5 C 07/15/25 08:00 Nasal Cannula 3 07/15/25 08:00 113/87 07/15/25 07:45 117/87 07/15/25 07:41 96 H 28 H 92 07/15/25 07:30 98/77 L 07/15/25 07:15 105/78 07/15/25 07:14 92 H 26 H 93 07/15/25 07:08 91 H 25 H 94 07/15/25 07:00 104/74 07/15/25 06:20 88 22 92 07/15/25 06:15 102/68 07/15/25 06:14 93 H 24 92 07/15/25 06:02 90 24 92 07/15/25 06:00 102/73 07/15/25 06:00 102/73 07/15/25 05:59 91 H 25 H 92 07/15/25 05:45 101/73 07/15/25 05:45 101/73 07/15/25 05:26 89 25 H 92 07/15/25 05:18 92 H 26 H 92 07/15/25 05:16 112/79 07/15/25 05:16 112/79 07/15/25 05:16 112/79 07/15/25 05:16 112/79 07/15/25 05:01 92/59 L 07/15/25 05:01 92/59 L 07/15/25 04:54 86 26 H 92 07/15/25 04:45 88 27 H 91 07/15/25 04:45 108/78 07/15/25 04:35 92 H 21 07/15/25 04:30 120/86 07/15/25 04:20 93 H 26 H 07/15/25 04:05 95 H 33 H 93 07/15/25 04:00 102/83 07/15/25 04:00 102/83 07/15/25 04:00 102/83 07/15/25 03:51 91 H 38 H 92 07/15/25 03:45 106/71 07/15/25 03:45 106/71 07/15/25 03:45 106/71 07/15/25 03:45 106/71 07/15/25 03:45 88 26 H 93 07/15/25 03:36 86 23 93 07/15/25 03:30 100/73 07/15/25 03:30 100/73 07/15/25 03:30 100/73 07/15/25 03:26 36.5 C 07/15/25 03:15 107/76 07/15/25 03:09 91 H 24 93 07/15/25 03:00 108/75 07/15/25 03:00 108/75 07/15/25 02:45 92 H 32 H 93 07/15/25 02:45 107/75 07/15/25 02:33 92 H 26 H 93 07/15/25 02:30 108/74 07/15/25 02:30 108/74 07/15/25 02:18 91 H 27 H 93 07/15/25 02:15 106/76 07/15/25 02:15 106/76 07/15/25 02:15 106/76 07/15/25 02:00 92 H 37 H 94 07/15/25 02:00 104/68 07/15/25 02:00 104/68 07/15/25 01:45 103/70 07/15/25 01:45 103/70 07/15/25 01:45 103/70 07/15/25 01:45 93 H 24 94 07/15/25 01:33 93 H 25 H 93 07/15/25 01:30 101/75 07/15/25 01:21 96 H 28 H 93 PG Care Time/CCT Total # of Minutes Spent Total Time Spent with Patient: Total time spent is greater than 50% in coordination of care (as documented) at patient's floor/unit and/or counseling patient: Coding Level of Care Code 18838 SUB INP/OBS CARE 2/35MIN Diagnoses Cirrhosis K74.60 Hepatic encephalopathy K76.82
--- NOTE | 2025-07-15 14:46 | Hospitalist Progress Note ---
Date of Service July 15, 2025 Assessment & Plan (1) Severe sepsis: Plan: Septic shock Acute pyelonephritis E. coli bacteremia Lactic acidosis--chronic likely multifactorial due to infection, hepatorenal failure --CT ABD: New 3 cm area of altered enhancement in the upper right kidney, most likely due to pyelonephritis. Apparent mild wall thickening of the right renal pelvis, which may also be due to infection. Bilateral renal calculi and left renal cysts. Cirrhosis and portal hypertension. Splenomegaly Small to moderate amount of ascites. Small hepatic cysts . Cholelithiasis without evidence of acute cholecystitis . Unchanged foreign body within the gastric lumen. Apparent mild colonic wall thickening. This could be due to secondary edema from hypoalbuminemia, though infectious colitis or inflammatory bowel disease is also possible --Blood Cultures:12/17: Growing E. coli --Urine culture: Negative --Repeat blood cultures pending --Repeat CT abdomen Continue IV Rocephin Received IV fluids Continue pressors per critical care team Appreciate senior architect help Decompensated cirrhosis/Hepatic encephalopathy--POA H/O MAFLD Elevated ammonia levels CT scan as above Monitor MELD score Continue lactulose to titrate to 3-4 good bowel movements per day Low-sodium diet Appreciate GI input Needs follow-up with hepatology Dr. Dorado on discharge Avoid hepatotoxic agents as able LFTs continue to worsen GI following Possible Hepatorenal syndrome Hold Lasix Avoid hepatotoxic agents as able Sildenafil on hold due to hypotension Monitor urine output Appreciate nephrology input Troponin elevation Likely due to renal dysfunction/sepsis Denies any chest pain Echo showed no wall motion abnormality next Severe pulmonary hypertension Severe tricuspid regurgitation --ECHO: Right ventricle severely dilated. Right ventricle systolic function is moderately reduced. Right atrium severely dilated. Left ventricular cavity is small. EF 65 to 70%. Flattened septum consistent with RV pressure/volume overload. Severe tricuspid regurgitation. Severe pulmonary hypertension is present. Compared to prior study, no significant change. --Resume home medications as able Hyperglycemia HbA1c unreliable due to significant anemia Insulin sliding scale for now Monitor blood glucose levels Acute hypoxemic respiratory failure Nocturnal hypoxemia CTA showed no PE. Small bilateral pleural effusions, atelectasis. Supplemental oxygen as needed. Resume diuretics as able Incentive spirometry Chronic pancytopenia secondary to liver disease Anemia of chronic disease --S/P 1 unit PRBCs Monitor H&H and transfuse as needed Anemia workup reviewed Vitamin D deficiency Started on vitamin D supplements Prolonged QTc Avoid QTc prolonging meds Monitor Ambulatory dysfunction Bedbound at baseline per patient Past tobacco abuse As per records Metallic foreign body gastric lumen on CT scan Thought to be metallic clip Also documented on prior imaging, records DVT Px: SCDs Re: Thrombocytopenia, history of GI bleed CODE STATUS Full code Disposition PT OT prior to discharge Admission and Anticipated Discharge Date Admission Date: July 13, 2025 Subjective Patient is seen and examined at bedside States her dyspnea is improving Patient was transferred to ICU overnight requiring pressors to help with blood pressure Decreased urine output Patient denies any chest pain, nausea, vomiting, abdominal pain Denies any bleeding issues Review of Systems Review of Systems: All systems reviewed & are unremarkable except as noted in Subjective Physical Exam Physical Exam: Physical Exam: Vitals signs as noted above General Appearance:Moderately built and nourished, no apparent distress, frail, chronic ill appearing Head: normocephalic, Atraumatic Eyes: normal inspection, EOMI Neck: supple, Trachea midline Respiratory/Chest: Decreased breath sounds, CTA, No accessory muscle use Cardiovascular: S1, S2, + murmur, Tachycardia Abdomen/GI:Soft, mildly distended, Non tender, Bowel sounds present Extremities/Musculoskeletal:normal inspection, Trace edema Neurologic/Psych:AAOX3, grossly no focal neurological deficits Skin: normal color, warm,+Jaundice Results & Data Results & Data Vital Signs (Past 12 Hours) Vital Signs Temp Pulse Resp BP Pulse Ox O2 Del Method O2 Flow Rate 07/15/25 14:01 36.3 C L 104 H 25 H 113/82 93 3 07/15/25 13:30 36.4 C L 101 H 26 H 101/71 92 3 07/15/25 13:00 36.4 C L 100 H 24 109/72 90 3 07/15/25 12:30 36.4 C L 97 H 24 97/73 L 91 3 07/15/25 12:15 36.3 C L 100 H 24 110/88 92 3 07/15/25 11:45 36.4 C L 98 H 22 100/73 92 3 07/15/25 11:12 96 H 25 H 89 L 07/15/25 11:00 95/65 L 07/15/25 10:33 95 H 25 H 88 L 07/15/25 10:30 91/65 L 07/15/25 10:09 98 H 24 89 L Nasal Cannula 2 07/15/25 09:33 98 H 25 H 92 07/15/25 09:30 112/75 07/15/25 09:21 102 H 32 H 92 07/15/25 09:03 96 H 26 H 93 07/15/25 09:00 113/77 07/15/25 08:54 101 H 29 H 93 07/15/25 08:35 117/84 07/15/25 08:33 101 H 29 H 93 07/15/25 08:15 120/86 07/15/25 08:14 97 H 26 H 95 07/15/25 08:02 99 H 28 H 93 07/15/25 08:00 36.5 C 07/15/25 08:00 Nasal Cannula 3 07/15/25 08:00 113/87 07/15/25 07:45 117/87 07/15/25 07:41 96 H 28 H 92 07/15/25 07:30 98/77 L 07/15/25 07:15 105/78 07/15/25 07:14 92 H 26 H 93 07/15/25 07:08 91 H 25 H 94 07/15/25 07:00 104/74 07/15/25 06:20 88 22 92 07/15/25 06:15 102/68 07/15/25 06:14 93 H 24 92 07/15/25 06:02 90 24 92 07/15/25 06:00 102/73 07/15/25 06:00 102/73 07/15/25 05:59 91 H 25 H 92 07/15/25 05:45 101/73 07/15/25 05:45 101/73 07/15/25 05:26 89 25 H 92 07/15/25 05:18 92 H 26 H 92 07/15/25 05:16 112/79 07/15/25 05:16 112/79 07/15/25 05:16 112/79 07/15/25 05:16 112/79 07/15/25 05:01 92/59 L 07/15/25 05:01 92/59 L 07/15/25 04:54 86 26 H 92 07/15/25 04:45 88 27 H 91 07/15/25 04:45 108/78 07/15/25 04:35 92 H 21 07/15/25 04:30 120/86 07/15/25 04:20 93 H 26 H 07/15/25 04:05 95 H 33 H 93 07/15/25 04:00 102/07/15/25 04:00 102/07/15/25 04:00 10207/15/25 03:51 91 H 38 H 92 07/15/25 03:45 106/07/15/25 03:45 106/71 07/15/25 03:45 10607/15/25 03:45 106/07/15/25 03:45 88 26 H 93 07/15/25 03:36 86 23 93 07/15/25 03:30 100/73 07/15/25 03:30 100/07/15/25 03:30 10007/15/25 03:26 36.5 C 07/15/25 03:15 107/76 07/15/25 03:09 91 H 24 93 07/15/25 03:00 108/75 07/15/25 03:00 108/07/15/25 02:45 92 H 32 H 93 07/15/25 02:45 107/75 Laboratory Results Short CBC 07/14/25 07/14/25 07/15/25 Range/Units 14:28 22:48 05:00 WBC 9.24 (4.8-10.8) K/ul Hgb 7.1 L 7.1 L 7.5 L (12.0-16.0) g/dl Hct 23.2 L 23.9 L 24.0 L (37.0-47.0) % Plt Count 47 L (130-400) K/uL BMP 07/14/25 07/14/25 07/15/25 14:28 22:48 05:00 Sodium 137 139 Potassium 3.9 3.5 Chloride 110 H 108 H Carbon Dioxide 14 L 17 L BUN 53 H 57 H Creatinine 2.13 H 2.40 H 2.45 H Glucose 134 H 166 H Calcium 8.5 L 8.3 L Liver Function 07/14/25 07/15/25 Range/Units 22:48 05:00 Total Bilirubin 17.4 H 18.6 H (0.2-1.0) mg/dl AST 71 H 80 H (13-39) U/L ALT 31 35 (7-52) U/L Alkaline Phosphatase 127 H 124 H (34-104) U/L Albumin 3.3 L 3.6 (3.4-5.0) gm/dl
--- NOTE | 2025-07-15 15:05 | CT Scan Report ---
CT OF THE ABDOMEN AND PELVIS WITHOUT CONTRAST CLINICAL HISTORY: Reassess for possible ureteral stones/obstruction COMPARISON STUDY: CT of the abdomen and pelvis July 13, 2025. TECHNIQUE: Axial images of the abdomen and pelvis were obtained without IV contrast. Images were revi ewed in the axial, sagittal, and coronal planes. Automated exposure control was utilized for the [place] dy. A dose lowering technique was utilized adhering to the principles of ALARA. FINDINGS: Moderate right and small left pleural effusions have increased in size since CT of July 13, 2025. Subpleural right lower lobe opacity favors atelectasis. No pneumatosis, free air or portal venous gas is present. Evaluation of the abdomen and pelvis is suboptimal on this unenhanced exam. Th e liver is cirrhotic appearing. Splenomegaly and moderate ascites are again noted. These appear simil ar to CT of July 13, 2025. No hepatic lesions are identified on this unenhanced examination. There are gallstones within the gallbladder. Gallbladder is not distended. Adrenal glands and pancreas are unremarkable. Evaluation for urinary calculi is suboptimal given excreted contrast. This represents delayed excretion of contrast. The nephrograms are heterogeneous. There are findings suggestive of st riated nephrogram is. A 3.7 cm hypoenhancing focus within the upper pole of the right kidney is again noted. Enhancement is decreased when compared to prior exam. Left renal cysts are noted. Delgado ballo on and contrast within the bladder are noted. There is a small amount of gas within the bladder. Ther e is no evidence for a bowel obstruction. Retroperitoneal collaterals are again noted. IMPRESSION: 1. No hydronephrosis. No definite ureteral calculi although sensitivity diminished given excreted con trast. Delayed renal excretion of contrast suggests underlying renal insufficiency. Bilateral nephrol ithiasis. 2. 3.7 cm hypoenhancing focus within the upper pole of the right kidney with decreased enhancement si nce prior CT. This could represent a focus of pyelonephritis. A developing renal abscess or renal inf arct are within the differential. Short-term follow-up CT is suggested. 3. Striated bilateral nephrograms. This is nonspecific but may represent pyelonephritis. 4. Cirrhotic liver with manifestations of portal hypertension including splenomegaly, moderate ascite s and varices formation. 5. Moderate right and small left pleural effusions, increased in size since prior exam. 6. Cholelithiasis. ACT 112: Negative or not required by law. Electronically signed by: Que Hutchinson M.D. 07/15/2025 3:04 PM
--- NOTE | 2025-07-15 16:39 | Critical Care Progress Note ---
Date of Service July 15, 2025 Assessment & Plan (1) Septic shock: Plan: * Infectious etiology E. coli pyelonephritis * Continue tapering vasopressors to keep MAP 65-70 mmHG * Continue Rocephin (2) Pulmonary arterial hypertension associated with portal hypertension: (3) Right heart failure due to pulmonary hypertension: (4) Acute renal failure: (5) Pyelonephritis: (6) Chronic liver disease: (7) Pancytopenia: (8) Hyperbilirubinemia: (9) Acute on chronic anemia: (10) Thrombocytopenia: (11) Hyperbilirubinemia: (12) Hypoxia: (13) Hepatic encephalopathy: Plan I have personally spent 45 minutes of critical care time in the direct management of this patient. This is a life/limb threatening event. This includes time spent evaluating the patient, direct bedside care, chart review, placing orders, interpreting diagnostic studies, communicating with consultants, attending providers, patient, and family members, as well as required patient management activities. This time is exclusive of all separately-billable procedures and teaching time, and separate from and in addition to any other critical care service time. Housekeeping items: Feeding/Fluids: Eating. No supplemental IV fluids at this time Analgesia: None needed at this time. Sedation: None needed at this time. Thromboprophylaxis: SCDs. Pharmacologic prophylaxis contraindicated due to thrombocytopenia. Head-up Position: Not applicable Ulcer Prophylaxis: Protonix Glycemic Control: None needed at this time. Spontaneous Breathing Trial: Not applicable Bowel Care: Getting Lactulose for Hepatic encephalopathy Indwelling Catheters/ Removal: Central line for Vasopressors. Delgado for accurate I/O. Drug de-escalation: Rocephin. Disposition: Continue in ICU. Admission and Anticipated Discharge Date Admission Date: July 13, 2025 Subjective The patient is a very pleasant 64-year-old female who presented to the ED for evaluation of generalized weakness. She had developed generalized weakness and shortness of breath that morning, following a blood transfusion the previous day for chronically low hemoglobin. She denied any rectal bleeding or abdominal pain, but reported some bleeding with urination and a recent history of dysuria and hematuria. She denied cough, hemoptysis, chest pain, or fluid retention. During her ED course, she was found to be mildly hypotensive and initially tachycardic. She was hypoxic, with oxygen saturations in the 80s, and was found to have acute kidney injury, hyperbilirubinemia, and an elevated troponin. Imaging revealed bilateral pleural effusions, and CT of the abdomen and pelvis showed findings consistent with pyelonephritis, as well as cirrhosis, portal hypertension, splenomegaly, mild ascites, and renal calculi. Blood cultures grew gram-negative bacilli, and a preliminary PCR was positive for Enterobacterales and E. coli. She was treated for severe sepsis and presumed pyelonephritis with IV antibiotics and fluids, and lactulose was administered for hyperammonemia. She was also managed for acute hypoxemic respiratory failure and volume overload, with diuretics held due to borderline blood pressure and kidney dysfunction. 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 She had a history of recurrent anemia requiring transfusions, grade 1 esophageal varices, and portal- hypertensive gastropathy. She was bedbound at baseline. Her most recent hospita lization was in March 2025 for upper GI bleeding, and she had been seen in the ED two weeks prior for symptomatic anemia. In summary, the patient presented on the day of presentation to the ED with ge neralized weakness and shortness of breath, found to have severe sepsis secondary to complicated UTI/pyelonephritis, decompensated cirrhosis with hepatic encephalopathy, acute kidney injury, acute hypoxemic respiratory failure, and evidence of right-sided heart failure and volume overload. Her past medical history included right-sided heart failure, valvular heart disease, severe pulmonary hypertension, MASLD cirrhosis, chronic pancytopenia, celiac disease, DM, anxiety disorder, and past tobacco abuse. The patient reports that she feels better. She denies dyspnea at rest. I discussed her condition with Dr. Ivonne Washington from Nephrology. Dr. Washington recommended repeating CT of abdomen without contrast to assess for any evidence of obstructive uropathy. Review of Systems Review of Systems: All systems reviewed & are unremarkable except as noted in HPI & below Physical Exam Physical Exam: General: In no acute distress, using Oxygenvia nasal cannula. Skin: Warm and dry to touch. Noobvious lesions. Eyes: Bilateral icteric conjunctivae.Noconjunctival hyperemia or exudates.No periorbital edema. ENT: No oral thrush. No oropharyngeal erythema or exudates. Modified-Mallampati 3 (Hard and soft palate seen). Neck: No palpable masses or adenopathy. Respiratory: Diffusely decreased breath sounds, no wheezing or crackles. No use of accessory muscles and no prolonged exhalation. Cardiac: Distant sounds, regular rhythm, no murmurs, no gallops, no rubs; could not appreciate JV pulse elevation. Could not appreciate P2. GI: Soft, nontender. Could not appreciate organomegaly. Extremities No clubbing,no cyanosis,trace edema. Neuro: No gross motor deficits. Seems appropriate. No facial-droop. Speech is clear. Results & Data Results & Data Vital Signs (Past 12 Hours) Vital Signs Temp Pulse Resp BP Pulse Ox O2 Del Method O2 Flow Rate 07/15/25 15:45 99 H 07/15/25 15:09 99 H 28 H 92 07/15/25 15:00 107/74 07/15/25 15:00 98 H 24 94 07/15/25 14:39 103 H 26 H 93 3 07/15/25 14:35 110/83 07/15/25 14:01 36.3 C L 104 H 25 H 113/82 93 3 07/15/25 13:30 36.4 C L 101 H 26 H 101/71 92 3 07/15/25 13:00 36.4 C L 100 H 24 109/72 90 3 07/15/25 12:30 36.4 C L 97 H 24 97/73 L 91 3 07/15/25 12:15 36.3 C L 100 H 24 110/88 92 3 07/15/25 11:45 36.4 C L 98 H 22 100/73 92 3 07/15/25 11:12 96 H 25 H 89 L 07/15/25 11:00 95/65 L 07/15/25 10:33 95 H 25 H 88 L 07/15/25 10:30 91/65 L 07/15/25 10:09 98 H 24 89 L Nasal Cannula 2 07/15/25 09:33 98 H 25 H 92 07/15/25 09:30 112/75 07/15/25 09:21 102 H 32 H 92 07/15/25 09:03 96 H 26 H 93 07/15/25 09:00 113/77 07/15/25 08:54 101 H 29 H 93 07/15/25 08:35 117/84 07/15/25 08:33 101 H 29 H 93 07/15/25 08:15 120/86 07/15/25 08:14 97 H 26 H 95 07/15/25 08:02 99 H 28 H 93 07/15/25 08:00 36.5 C 07/15/25 08:00 Nasal Cannula 3 07/15/25 08:00 113/87 07/15/25 07:45 117/87 07/15/25 07:41 96 H 28 H 92 07/15/25 07:30 98/77 L 07/15/25 07:15 105/78 07/15/25 07:14 92 H 26 H 93 07/15/25 07:08 91 H 25 H 94 07/15/25 07:00 104/74 07/15/25 06:20 88 22 92 07/15/25 06:15 102/68 07/15/25 06:14 93 H 24 92 07/15/25 06:02 90 24 92 07/15/25 06:00 102/73 07/15/25 06:00 102/73 07/15/25 05:59 91 H 25 H 92 07/15/25 05:45 101/73 07/15/25 05:45 101/73 07/15/25 05:26 89 25 H 92 07/15/25 05:18 92 H 26 H 92 07/15/25 05:16 112/79 07/15/25 05:16 112/79 07/15/25 05:16 112/79 07/15/25 05:16 112/79 07/15/25 05:01 92/59 L 07/15/25 05:01 92/59 L 07/15/25 04:54 86 26 H 92 07/15/25 04:45 88 27 H 91 07/15/25 04:45 108/78 07/15/25 04:35 92 H 21 Laboratory Results 07/13/25 22:10 Urine Culture - Preliminary Urine,Straight Cath No growth - Less than 1,000 colonies/mL, Final report to follow. 07/13/25 17:19 Aerobic Blood Culture - Preliminary Blood Escherichia coli Anaerobic Blood Culture - Preliminary Escherichia coli 07/13/25 17:03 Aerobic Blood Culture - Preliminary Blood Escherichia coli Anaerobic Blood Culture - Preliminary Escherichia coli 07/15/25 05:00 Aerobic Blood Culture - Pending Blood Anaerobic Blood Culture - Pending 07/15/25 05:00 Aerobic Blood Culture - Pending Blood Anaerobic Blood Culture - Pending 07/15/25 07/15/25 07/15/25 15:57 11:57 09:07 WBC RBC Hgb POC Hgb Hct POC Hct MCV MCH MCHC RDW Std Deviation RDW Coeff of Dalia Plt Count MPV Absolute Nucleated RBC Nucleated RBC % (auto) PT INR Specimen Type Sample Site POC pH POC pCO2 POC pO2 POC HCO3 POC Total CO2 POC Base Excess O2 Sat Pulse Oximetry ABG pH (Temp Correct) ABG pCO2 (Temp Corrct POC ABG pO2 at Pt Temp POC ABG O2 Sat Keshav Test O2 Delivery Device POC Sodium Sodium POC Potassium Potassium Chloride Carbon Dioxide Anion Gap BUN Creatinine Est Cr Clr Drug Dosing eGFR BUN/Creatinine Ratio Glucose POC Glucose [address] Glu mmol/L Estimated Ave Glu mg/dL Hemoglobin A1c Lactate Calcium Ionized Calcium Phosphorus Magnesium Iron TIBC Transferrin Transferrin % Sat Total Bilirubin AST ALT Alkaline Phosphatase Ammonia B-Natriuretic Peptide Total Protein Albumin Globulin Albumin/Globulin Ratio Vitamin B12 25-OH Vitamin D Total Folate Random Cortisol Ur Random Creatinine 128.7 U Random Total Protein 95.7 H Ur Random Sodium < 10 Nasal Screen MRSA (PCR) Blood Type Antibody Screen Crossmatch 07/15/25 07/15/25 07/15/25 08:38 05:00 01:37 WBC 9.24 RBC 2.32 L Hgb 7.5 L POC Hgb Hct 24.0 L POC Hct MCV 103.4 H MCH 32.3 MCHC 31.3 L RDW Std Deviation 91.9 H RDW Coeff of Dalia 24.7 H Plt Count 47 L MPV 9.9 Absolute Nucleated RBC 0.53 H Nucleated RBC % (auto) 5.7 PT 17.7 H INR 1.7 H Specimen Type Sample Site POC pH POC pCO2 POC pO2 POC HCO3 POC Total CO2 POC Base Excess O2 Sat Pulse Oximetry ABG pH (Temp Correct) ABG pCO2 (Temp Corrct POC ABG pO2 at Pt Temp POC ABG O2 Sat Keshav Test O2 Delivery Device POC Sodium Sodium 139 POC Potassium Potassium 3.5 Chloride 108 H Carbon Dioxide 17 L Anion Gap 14 H BUN 57 H Creatinine 2.45 H Est Cr Clr Drug Dosing 24.8 eGFR 21.73 BUN/Creatinine Ratio 23.3 H Glucose 166 H POC Glucose Estimated Ave Glu mmol/L Estimated Ave Glu mg/dL Hemoglobin A1c Lactate 3.1 H* 3.2 H* Calcium 8.3 L Ionized Calcium 1.12 Phosphorus 6.1 H Magnesium 2.5 H Iron 108 TIBC TNP Transferrin < 95 L Transferrin % Sat TNP Total Bilirubin 18.6 H AST 80 H ALT 35 Alkaline Phosphatase 124 H Ammonia 75.0 H B-Natriuretic Peptide Total Protein 6.4 Albumin 3.6 Globulin 2.8 Albumin/Globulin Ratio 1.3 Vitamin B12 686 25-OH Vitamin D Total 22.9 L Folate > 22.30 Random Cortisol Ur Random Creatinine U Random Total Protein Ur Random Sodium Nasal Screen MRSA (PCR) Blood Type B Positive Antibody Screen NEGATIVE Crossmatch See Detail 07/15/25 07/15/25 07/14/25 01:36 00:28 23:54 WBC RBC Hgb POC Hgb 10.9 L Hct POC Hct 32 L MCV MCH MCHC RDW Std Deviation RDW Coeff of Dalia Plt Count MPV Absolute Nucleated RBC Nucleated RBC % (auto) PT INR Specimen Type FIONA Sample Site R Radial POC pH 7.37 POC pCO2 23 L POC pO2 32 L POC HCO3 13 L POC Total CO2 14 L POC Base Excess -12.0 L O2 Sat Pulse Oximetry 94 ABG pH (Temp Correct) 7.375 ABG pCO2 (Temp Corrct 23 L POC ABG pO2 at Pt Temp 31 POC ABG O2 Sat 62.0 L Keshav Test NA O2 Delivery Device Room Air POC Sodium 138 Sodium POC Potassium 3.8 Potassium Chloride Carbon Dioxide Anion Gap BUN Creatinine Est Cr Clr Drug Dosing eGFR BUN/Creatinine Ratio Glucose POC Glucose Estimated Ave Glu mmol/L Estimated Ave Glu mg/dL Hemoglobin A1c Lactate Calcium Ionized Calcium Phosphorus Magnesium Iron TIBC Transferrin Transferrin % Sat Total Bilirubin AST ALT Alkaline Phosphatase Ammonia B-Natriuretic Peptide 4382 H Total Protein Albumin Globulin Albumin/Globulin Ratio Vitamin B12 25-OH Vitamin D Total Folate Random Cortisol Ur Random Creatinine U Random Total Protein Ur Random Sodium Nasal Screen MRSA (PCR) Negative Blood Type Antibody Screen Crossmatch 07/14/25 07/14/25 07/14/25 23:00 22:48 21:35 WBC RBC Hgb 7.1 L POC Hgb Hct 23.9 L POC Hct MCV MCH MCHC RDW Std Deviation RDW Coeff of Dalia Plt Count MPV Absolute Nucleated RBC Nucleated RBC % (auto) PT 17.0 H INR 1.7 H Specimen Type Sample Site POC pH POC pCO2 POC pO2 POC HCO3 POC Total CO2 POC Base Excess O2 Sat Pulse Oximetry ABG pH (Temp Correct) ABG pCO2 (Temp Corrct POC ABG pO2 at Pt Temp POC ABG O2 Sat Keshav Test O2 Delivery Device POC Sodium Sodium 137 POC Potassium Potassium 3.9 Chloride 110 H Carbon Dioxide 14 L Anion Gap 13 H BUN 53 H Creatinine 2.40 H Est Cr Clr Drug Dosing 25.3 eGFR 22.28 BUN/Creatinine Ratio 22.1 H Glucose 134 H POC Glucose Estimated Ave Glu mmol/L Estimated Ave Glu mg/dL Hemoglobin A1c Lactate 3.5 H* Calcium 8.5 L Ionized Calcium Phosphorus Magnesium Iron TIBC Transferrin Transferrin % Sat Total Bilirubin 17.4 H AST 71 H ALT 31 Alkaline Phosphatase 127 H Ammonia 91.0 H B-Natriuretic Peptide Total Protein 6.4 Albumin 3.3 L Globulin 3.1 Albumin/Globulin Ratio 1.1 Vitamin B12 25-OH Vitamin D Total Folate Random Cortisol 50.06 Ur Random Creatinine U Random Total Protein Ur Random Sodium Nasal Screen MRSA (PCR) Blood Type Antibody Screen Crossmatch 07/14/25 08:19 WBC RBC Hgb POC Hgb Hct POC Hct MCV MCH MCHC RDW Std Deviation RDW Coeff of Dalia Plt Count MPV Absolute Nucleated RBC Nucleated RBC % (auto) PT INR Specimen Type Sample Site POC pH POC pCO2 POC pO2 POC HCO3 POC Total CO2 POC Base Excess O2 Sat Pulse Oximetry ABG pH (Temp Correct) ABG pCO2 (Temp Corrct POC ABG pO2 at Pt Temp POC ABG O2 Sat Keshav Test O2 Delivery Device POC Sodium Sodium POC Potassium Potassium Chloride Carbon Dioxide Anion Gap BUN Creatinine Est Cr Clr Drug Dosing eGFR BUN/Creatinine Ratio Glucose POC Glucose Estimated Ave Glu mmol/L DNR Estimated Ave Glu mg/dL SEE NOTE Hemoglobin A1c <4.2 Lactate Calcium Ionized Calcium Phosphorus Magnesium Iron TIBC Transferrin Transferrin % Sat Total Bilirubin AST ALT Alkaline Phosphatase Ammonia B-Natriuretic Peptide Total Protein Albumin Globulin Albumin/Globulin Ratio Vitamin B12 25-OH Vitamin D Total Folate Random Cortisol Ur Random Creatinine U Random Total Protein Ur Random Sodium Nasal Screen MRSA (PCR) Blood Type Antibody Screen Crossmatch Diagnostic Findings Chest X-Ray 07/14/25 22:27 Exam(s): XR CXR 1 VIEW EXAM: XR Chest, 1 View CLINICAL HISTORY: Reason for exam: tachypnea. TECHNIQUE: Frontal view of the chest. COMPARISON: 07/13/2025 FINDINGS: Lungs: Mild basilar opacities. Pleural space: Trace pleural effusions. No pneumothorax. Heart: Stable mild cardiomegaly. Bones/joints: No acute fracture. No dislocation. Vasculature: Enlarged central pulmonary arteries suggesting pulmonary arterial hypertension. IMPRESSION: 1. Mild basilar opacities. Atelectasis is favored. 2. Enlarged central pulmonary arteries suggesting pulmonary arterial hypertension. 3. Trace pleural effusions. Electronically signed by: Dylan Hurtado M.D. 07/15/25 00:56 AM Chest X-Ray 07/15/25 01:11 EXAM: XR chest 1V portable CLINICAL HISTORY: central IJ TECHNIQUE: An X-ray image of the chest was obtained in AP projection. COMPARISON: 07/13/2025 CT FINDINGS: A central venous line is seen with its tip at the cavoatrial level. Pulmonary Parenchyma: Airspace consolidation is seen in the right lower zone. Minimal blunting of both costophrenic angles is likely due to pleural effusion. There is elevation of the dome of the right hemidiaphragm. Heart and Mediastinum: The heart size and shape are normal. No mediastinal widening or masses are identified. The right hilum appears prominent. Bony Thorax: The bony thorax appears intact without fractures or deformities. Soft Tissues: Soft tissues overlying the chest wall are unremarkable. IMPRESSION: 1. A central venous line is seen with its tip at the cavoatrial level; New 2. Airspace shadowing is seen in the right lower zone. Unchanged. 3. Minimal blunting of both costophrenic angles is likely due to pleural effusion. Unchanged Electronically signed by Josue Gaston 07-15-2025 02:23 AM Abdomen/Pelvis CT 07/15/25 12:48 CT OF THE ABDOMEN AND PELVIS WITHOUT CONTRAST CLINICAL HISTORY: Reassess for possible ureteral stones/obstruction COMPARISON STUDY: CT of the abdomen and pelvis July 13, 2025. TECHNIQUE: Axial images of the abdomen and pelvis were obtained without IV contrast. Images were reviewed in the axial, sagittal, and coronal planes. Automated exposure control was utilized for the study. A dose lowering technique was utilized adhering to the principles of ALARA. FINDINGS: Moderate right and small left pleural effusions have increased in size since CT of July 13, 2025. Subpleural right lower lobe opacity favors at electasis. No pneumatosis, free air or portal venous gas is present. Evaluation of the abdomen and pelvis is suboptimal on this unenhanced exam. The liver is cirrhotic appearing. Splenomegaly and moderate ascites are again noted. These appear similar to CT of July 13, 2025. No hepatic lesions are identified on this unenhanced examination. There are gallstones within the gallbladder. Gallbladder is not distended. Adrenal glands and pancreas are unremarkable. Evaluation for urinary calculi is suboptimal given excreted contrast. This represents delayed excretion of contrast. The nephrograms are heterogeneous. There are findings suggestive of striated nephrogram is. A 3.7 cm hypoenhancing focus within the upper pole of the right kidney is again noted. Enhancement is decreased when compared to prior exam. Left renal cysts are noted. Delgado balloon and contrast within the bladder are noted. There is a small amount of gas within the bladder. There is no evidence for a bowel obstruction. Retroperitoneal collaterals are again noted. IMPRESSION: 1. No hydronephrosis. No definite ureteral calculi although sensitivity diminished given excreted contrast. Delayed renal excretion of contrast suggests underlying renal insufficiency. Bilateral nephrolithiasis. 2. 3.7 cm hypoenhancing focus within the upper pole of the right kidney with decreased enhancement since prior CT. This could represent a focus of pyelonephritis. A developing renal abscess or renal infarct are within the differential. Short-term follow-up CT is suggested. 3. Striated bilateral nephrograms. This is nonspecific but may represent pyelonephritis. 4. Cirrhotic liver with manifestations of portal hypertension including splenomegaly, moderate ascites and varices formation. 5. Moderate right and small left pleural effusions, increased in size since prior exam. 6. Cholelithiasis. ACT 112: Negative or not required by law. Electronically signed by: Que Hutchinson M.D. 07/15/2025 3:04 PM Medications Administered Home Medications Medication Instructions Recorded Confirmed Last Taken furosemide 40 mg tablet 40 mg PO DAILY 03/17/25 07/13/25 06/14/25 lactulose 10 gram/15 mL oral 30 ml PO TID 03/17/25 07/13/25 06/14/25 solution (Constulose) sildenafil (pulm.hypertension) 20 40 mg PO TID 03/17/25 07/13/25 06/14/25 mg tablet ferrous sulfate 325 mg (65 mg 325 mg PO DAILY 06/08/25 07/13/25 06/14/25 iron) tablet folic acid 1 mg tablet 1 mg PO DAILY 06/08/25 07/13/25 06/14/25 vitamin A 3,000 mcg (10,000 unit) 3,000 mcg PO DAILY 06/08/25 07/13/25 06/14/25 capsule fluticasone propionate 50 2 spray intranasal QAM 07/13/25 07/13/25 Unknown mcg/actuation nasal spray,suspension multivitamin 1 tab PO QAM 07/13/25 07/13/25 Unknown pantoprazole 40 mg tablet,delayed 40 mg PO QAM 07/13/25 07/13/25 Unknown release selexipag 200 mcg (140)-800 mcg 1 ea PO UD 07/13/25 07/13/25 Unknown (60) tablets in a dose pack (Uptravi) selexipag 200 mcg tablet (Uptravi) 200 mcg PO TID 07/13/25 07/13/25 Unknown zinc glycinate 20 mg capsule 20 mg PO DAILY 07/13/25 07/13/25 Unknown Active Medications Generic Name Dose Route Start Last Admin Trade Name Freq PRN Reason Stop Dose Admin Ergocalciferol 1,250 mcg 07/15/25 11:00 07/15/25 12:03 Ergocalciferol 1250 Mcg (50,000 Units) Cap PO 08/14/25 10:59 1,250 mcg Fr@0900 GEOFF Administration Ferrous Sulfate 325 mg 07/14/25 09:00 07/15/25 08:49 Ferrous Sulfate 325 Mg Tab PO 08/13/25 08:59 325 mg DAILY GEOFF Administration Fluticasone Propionate 2 sprays 07/14/25 09:00 07/15/25 08:49 Fluticasone Propionate Na Spr 16 Gm Btl NA 08/13/25 08:59 2 sprays QAM GEOFF Administration Folic Acid 1 mg 07/14/25 09:00 07/15/25 08:49 Folic Acid 1 Mg Tab PO 08/13/25 08:59 1 mg DAILY GEOFF Administration Promethazine HCl 6.25 mg in 50.25 mls @ 201 mls/hr 07/13/25 20:28 07/14/25 20:23 Phenergan IV 08/12/25 20:27 Infused Q6H PRN Infusion Nausea And Vomiting Ceftriaxone Sodium 2,000 mg in 50 mls @ 100 mls/hr 07/14/25 18:00 07/14/25 17:46 Rocephin IV 07/28/25 17:59 Infused Q24H GEOFF Infusion Norepinephrine Bitartrate 4 mg in 250 mls @ 25.566 mls/hr 07/14/25 22:45 07/15/25 15:30 Levophed/D5w IV 08/13/25 22:44 Not Given .[id number] GEOFF Protocol 0.09 MCG/KG/MIN Insulin Aspart 0 units 07/15/25 16:30 07/15/25 12:12 Insulin Aspart Per Unit Charge SC 08/14/25 16:29 5 units ACHS GEOFF Administration Levalbuterol HCl 1.25 mg 07/14/25 17:53 07/14/25 18:14 Levalbuterol 1.25 Mg/3 Ml Neb NEB 08/13/25 17:52 1.25 mg Q6H PRN Administration Shortness Of Breath Or Wheezing Multivitamins 1 tab 07/14/25 09:00 07/15/25 08:49 Multivitamin Tab PO 08/13/25 08:59 1 tab QAM GEOFF Administration Oxycodone HCl 5 mg 07/13/25 20:28 07/15/25 14:46 Oxycodone Hcl Ir 5 Mg Tab (Immediate Release) PO 07/27/25 20:27 5 mg Q4H PRN Administration Pain Pantoprazole Sodium 40 mg 07/14/25 09:00 07/15/25 08:49 Pantoprazole 40 Mg Tab PO 08/13/25 08:59 40 mg QAM GEOFF Administration Rifaximin 550 mg 07/14/25 22:30 07/15/25 08:48 Rifaximin 550 Mg Tablet PO 08/13/25 22:29 550 mg BID GEOFF Administration Coding Level of Care Code 29644 CRITICAL CARE 1ST 30-74M Diagnoses Septic shock A41.9; R65.21 Pulmonary arterial hypertension associated with portal hypertension I27.21; K76.6 Right heart failure due to pulmonary hypertension I27.29; I50.810 Acute renal failure, unspecified acute renal failure type N17.9 Acute renal failure type: unspecified Pyelonephritis N12 Chronic liver disease K76.9 Pancytopenia D61.818 Hyperbilirubinemia E80.6 Acute on chronic anemia D64.9 Thrombocytopenia D69.6 Hypoxia R09.02 Hepatic encephalopathy K76.82 Time Spent (min) 45 (4) Acute renal failure Acute renal failure type: unspecified Qualified Code(s): N17.9 - Acute kidney failure, unspecified
[2025-07-15 21:07] LABS: Anion Gap 11.0 (3-11); Blood Urea Nitrogen 62.0 mg/dl (6-23); Calcium 8.3 mg/dl (8.6-10.3); Carbon Dioxide 17.0 mmol/L (21-32); Chloride 107.0 mmol/L (98-107); Creatinine Clr Calc Pharmacy 25.4 ml/min; Glucose 163.0 mg/dl (70-99(Fasting)); Potassium 3.9 mmol/L (3.5-5.1); Sodium 135.0 mmol/L (136-145)
[2025-07-15] MEDS: LACTULOSE SYRUP 20 GM/30 ML UDC PO SCH (21:20)
--- NOTE | 2025-07-15 21:23 | XRay Report ---
Exam(s): XR CXR 1 VIEW EXAM: XR Chest, 1 View CLINICAL HISTORY: Reason for exam: hypoxemia. TECHNIQUE: Frontal view of the chest. COMPARISON: 07/14/25 FINDINGS: Lungs: Patchy airspace disease seen in bilateral lung bases. Pleural space: Small bilateral pleural effusions. No pneumothorax. Heart: Unremarkable. No cardiomegaly. Mediastinum: Unremarkable. Normal mediastinal contour. Bones/joints: Unremarkable. No acute fracture. Tubes, lines and devices: Right-sided IJ line tip seen at the cavoatrial junction. IMPRESSION: 1. Bilateral basilar pneumonia 2. Small pleural effusions Electronically signed by: Raf Park MD 07/15/25 21:22 PM
[2025-07-16 05:24] LABS: Hematocrit (blood only) 27.0 % (37.0-47.0); Hemoglobin 8.4 g/dl (12.0-16.0); Mean Corpuscular Hemoglobin 31.5 pg (25.0-34.0); Mean Corpuscular Volume 101.1 fL (80.0-100.0); Platelet Count 42 K/uL (130-400); RDW Standard Deviation 87.0 fL (36.4-46.3); Red Blood Count 2.67 M/uL (4.20-5.40); White Blood Count 8.97 K/ul (4.8-10.8)
[2025-07-16 05:47] LABS: INR 1.5 (0.9-1.1); Prothrombin Time 15.1 Seconds (9.0-12.0)
[2025-07-16 05:48] LABS: Alanine Aminotransferase 66.0 U/L (7-52); Albumin Globulin Ratio 0.9 (0.9-2); Albumin Level 3.0 gm/dl (3.4-5.0); Alkaline Phosphatase 147.0 U/L (34-104); Anion Gap 11.0 (3-11); Bilirubin,Total 20.1 mg/dl (0.2-1.0); Blood Urea Nitrogen 62.0 mg/dl (6-23); Calcium 8.4 mg/dl (8.6-10.3); Carbon Dioxide 18.0 mmol/L (21-32); Chloride 107.0 mmol/L (98-107); Creatinine Clr Calc Pharmacy 27.4 ml/min; Globulin 3.3 gm/dl (2.5-4.0); Glucose 120.0 mg/dl (70-99(Fasting)); Magnesium 2.7 mg/dl (1.7-2.4); Potassium 3.8 mmol/L (3.5-5.1); Sodium 136.0 mmol/L (136-145); Total Protein 6.3 gm/dl (6.0-8.3)
--- NOTE | 2025-07-16 15:13 | Hospitalist Progress Note ---
Date of Service July 16, 2025 Assessment & Plan (1) Severe sepsis: Plan: Septic shock Acute pyelonephritis E. coli bacteremia Suspected developing renal abscess Lactic acidosis--chronic likely multifactorial due to infection, hepatorenal failure --CT ABD: New 3 cm area of altered enhancement in the upper right kidney, most likely due to pyelonephritis. Apparent mild wall thickening of the right renal pelvis, which may also be due to infection. Bilateral renal calculi and left renal cysts. Cirrhosis and portal hypertension. Splenomegaly Small to moderate amount of ascites. Small hepatic cysts . Cholelithiasis without evidence of acute cholecystitis . Unchanged foreign body within the gastric lumen. Apparent mild colonic wall thickening. This could be due to secondary edema from hypoalbuminemia, though infectious colitis or inflammatory bowel disease is also possible --Repeat CT abdomen: Nephrolithiasis, 3.7 cm hypoenhancing focus within the upper pole of the right kidney with decreased enhancement since prior CT. This could represent a focus of pyelonephritis. A developing renal abscess or renal infarct are within the differential. Cirrhotic liver with manifestations of portal hypertension including splenomegaly, moderate ascites and varices formation. Moderate right and small left pleural effusions, increased in size since prior exam. Cholelithiasis. --Blood Cultures:12/17: Growing E. coli --Repeat blood cultures negative to date --Urine culture: E. coli Continue IV Rocephin Received IV fluids Wean off of pressors as able Appreciate clinical administrator help Continue to monitor in ICU Decompensated cirrhosis/Hepatic encephalopathy--POA H/O MAFLD Elevated ammonia levels CT scan as above Monitor MELD score Continue lactulose to titrate to 3-4 good bowel movements per day Low-sodium diet Appreciate GI input Needs follow-up with hepatology Dr. Dorado on discharge Avoid hepatotoxic agents as able LFTs continue to worsen Also started on rifaximin Possible Hepatorenal syndrome Hold Lasix Avoid hepatotoxic agents as able Sildenafil on hold due to hypotension Monitor urine output Appreciate nephrology input Nephrology following Troponin elevation Likely due to renal dysfunction/sepsis Denies any chest pain Echo showed no wall motion abnormality next Severe pulmonary hypertension Severe tricuspid regurgitation --ECHO: Right ventricle severely dilated. Right ventricle systolic function is moderately reduced. Right atrium severely dilated. Left ventricular cavity is small. EF 65 to 70%. Flattened septum consistent with RV pressure/volume overload. Severe tricuspid regurgitation. Severe pulmonary hypertension is present. Compared to prior study, no significant change. --Resume home medications as able Hyperglycemia HbA1c unreliable due to significant anemia Insulin sliding scale for now Monitor blood glucose levels Acute hypoxemic respiratory failure Nocturnal hypoxemia CTA showed no PE. Small bilateral pleural effusions, atelectasis. Supplemental oxygen as needed. Resume diuretics as able Incentive spirometry Requiring 5 L supplemental oxygen to maintain saturation Difficult to diurese given septic shock Chronic pancytopenia secondary to liver disease Anemia of chronic disease --S/P 1 unit PRBCs Monitor H&H and transfuse as needed Anemia workup reviewed Currently denies any bleeding issues Vitamin D deficiency Started on vitamin D supplements Prolonged QTc Avoid QTc prolonging meds Monitor Ambulatory dysfunction Bedbound at baseline per patient Past tobacco abuse As per records Metallic foreign body gastric lumen on CT scan Thought to be metallic clip Also documented on prior imaging, records DVT Px: SCDs Re: Thrombocytopenia, history of GI bleed CODE STATUS Full code Disposition PT OT prior to discharge Admission and Anticipated Discharge Date Admission Date: July 13, 2025 Subjective Patient is seen and examined at bedside States feeling tired Also reports dyspnea on exertion Dyspnea better at rest Still on pressors this morning Patient denies any chest pain, nausea, vomiting, abdominal pain Hemoglobin stable Review of Systems Review of Systems: All systems reviewed & are unremarkable except as noted in Subjective Physical Exam Physical Exam: Physical Exam: Vitals signs as noted above General Appearance:Moderately built and nourished, no apparent distress, frail, chronic ill appearing Head: normocephalic, Atraumatic Eyes: normal inspection, EOMI Neck: supple, Trachea midline Respiratory/Chest: Decreased breath sounds, basal crackles, No accessory muscle use Cardiovascular: S1, S2, + murmur, Tachycardia Abdomen/GI:Soft, mildly distended, Non tender, Bowel sounds present Extremities/Musculoskeletal:normal inspection, Trace edema Neurologic/Psych:AAOX3, grossly no focal neurological deficits Skin: normal color, warm,+Jaundice Results & Data Results & Data Vital Signs (Past 12 Hours) Vital Signs Temp Pulse Resp BP Pulse Ox O2 Del Method O2 Flow Rate 07/16/25 06:00 90 20 102/74 96 Nasal Cannula 5 07/16/25 05:30 98/69 L 07/16/25 05:00 92 H 18 97/71 L 96 Nasal Cannula 5 07/16/25 04:30 103/74 07/16/25 04:09 90 20 115/82 95 Nasal Cannula 5 07/16/25 04:00 36.5 C 07/16/25 03:30 99/77 L Laboratory Results Short CBC 07/16/25 Range/Units 04:38 WBC 8.97 (4.8-10.8) K/ul Hgb 8.4 L (12.0-16.0) g/dl Hct 27.0 L (37.0-47.0) % Plt Count 42 L (130-400) K/uL BMP 07/15/25 07/16/25 20:38 04:38 Sodium 135 L 136 Potassium 3.9 3.8 Chloride 107 107 Carbon Dioxide 17 L 18 L BUN 62 H 62 H Creatinine 2.41 H 2.23 H Glucose 163 H 120 H Calcium 8.3 L 8.4 L Liver Function 07/16/25 Range/Units 04:38 Total Bilirubin 20.1 H (0.2-1.0) mg/dl AST 150 H (13-39) U/L ALT 66 H (7-52) U/L Alkaline Phosphatase 147 H (34-104) U/L Albumin 3.0 L (3.4-5.0) gm/dl
--- NOTE | 2025-07-16 15:34 | Nephrology Progress Note ---
Date of Service July 16, 2025 Assessment & Plan (1) Acute renal failure: Plan: worsening now Stage 3 borderline oliguric BRY in the setting of underlying /chronic right heart failure from severe pulmonary hypertension and advanced/complex liver disease. Baseline creatinine is 0.7-0.9. Presented w/ creatinine 1.7 on 07/13 in the evening; up to 2.2 today. Admission urinalysis from July 13 cloudy dark yellow with pH 5.5 with 2+ protein 2+ blood 2+ bilirubin 2+ leukocyte esterase 3+ bacteria with granular casts, greater than 1045 specific gravity. Etiologies include IV contrast exposure, septic shock, pyelonephritis, worsening heart failure/cardiorenal syndrome in addition to underlying cirrhosis. -monitor BMP -keep hgb > 7.5 -no indication at this time for either fluid or diuretic > monitor -needs to continue strict I/O >>cannot rule out need for dialysis in this patient given anuria and multiple renal insults >> anticipate renal function will worsen before it improves; she will be very challenging to dialyze appropriately if need arises; would still consider her a candidate for discussion of dialysis if need arises as she is being evaluated for txplt (2) Shock: Plan: combined septic and ?cardiac >> continue levophed as needed (3) Sepsis: Plan: continue antibiotics renally dosed. +E coli septicemia Admission and Anticipated Discharge Date Admission Date: July 13, 2025 Subjective seen for acute renal failure in patient with decompensated cirrhosis and pulmonary hypertension. Main complaint is weakness. She is sitting up in bed. She is on oxygen nasal cannula Review of Systems 2 Review of Systems: All other systems were reviewed and negative except as noted in HPI Physical Exam 2 Physical Exam: General exam: Appears comfortable, no acute distress HEENT: deep jaundice,Pupils are equal and reactive to light Neck: No JVD, neck is supple trachea is midline Respiratory system: Clear breath sounds bilaterally. Gastrointestinal: Abdomen is soft, non distended, non tender, bowel sounds are present CVS: Regular rate and rhythm. No murmurs, rubs or gallops Musculoskeletal: No joint or muscle tenderness Extremities: Non tender, no edema, peripheral pulses are present Neuro: Oriented, no tremors, no focal neurological deficits Skin: No rashes, deep jaundice Results & Data Vital Signs (Past 12 Hours) Vital Signs Temp Pulse Resp BP Pulse Ox O2 Del Method O2 Flow Rate 07/16/25 06:00 90 20 102/74 96 Nasal Cannula 5 07/16/25 05:30 98/69 L 07/16/25 05:00 92 H 18 97/71 L 96 Nasal Cannula 5 07/16/25 04:30 103/74 07/16/25 04:09 90 20 115/82 95 Nasal Cannula 5 07/16/25 04:00 36.5 C Laboratory Results 07/16/25 04:38 07/16/25 04:38 WBC 8.97 RBC 2.67 L MCV 101.1 H MCH 31.5 MCHC 31.1 L RDW Std Deviation 87.0 H RDW Coeff of Dalia 24.0 H Plt Count 42 L Phosphorus 4.8 D Albumin 3.0 L (1) Acute renal failure Acute renal failure type: unspecified Qualified Code(s): N17.9 - Acute kidney failure, unspecified
--- NOTE | 2025-07-16 16:38 | Critical Care Progress Note ---
Date of Service July 16, 2025 Assessment & Plan (1) Septic shock: Plan: * Infectious etiology E. coli pyelonephritis * Off of Vasopressors this afternoon * Continue Rocephin (2) Hypoxia: Plan: * Suspected on the basis of severe pulmonary hypertension * Cannot rule out mild intracardiac [id number] shunt associated with increased Right-atrial pressure * Cannot rule out pulmonary edema associated with impaired LV compliance associated with enlarged RV * Will discuss with Nephrology potential for benefit from Furosemide-drip. (3) Pulmonary arterial hypertension associated with portal hypertension: (4) Right heart failure due to pulmonary hypertension: (5) Acute renal failure: (6) Pyelonephritis: (7) Chronic liver disease: (8) Pancytopenia: (9) Hyperbilirubinemia: (10) Hepatic encephalopathy: Plan I have personally spent 55 minutes of critical care time in the direct management of this patient. This is a life/limb threatening event. This includes time spent evaluating the patient, direct bedside care, chart review, placing orders, interpreting diagnostic studies, communicating with consultants, attending providers, patient, and family members, as well as required patient management activities. This time is exclusive of all separately-billable procedures and teaching time, and separate from and in addition to any other critical care service time. Housekeeping items: Feeding/Fluids: Eating. No supplemental IV fluids at this time Analgesia: Oxycodone for back pain Sedation: None needed at this time. Thromboprophylaxis: SCDs Head-up Position: Not applicable Ulcer Prophylaxis: Protonix Glycemic Control: None needed at this time. Spontaneous Breathing Trial: Not applicable Bowel Care: 2 BMs today (Lactulose) Indwelling Catheters/ Removal: Delgado catheter for accurate I/O. Drug de-escalation: Rocephin for E. coli. Disposition: Continue in ICU. Admission and Anticipated Discharge Date Admission Date: July 13, 2025 Subjective The patient is a very pleasant 64-year-old female who presented to the ED for evaluation of generalized weakness. She had developed generalized weakness and shortness of breath that morning, following a blood transfusion the previous day for chronically low hemoglobin. She denied any rectal bleeding or abdominal pain, but reported some bleeding with urination and a recent history of dysuria and hematuria. She denied cough, hemoptysis, chest pain, or fluid retention. During her ED course, she was found to be mildly hypotensive and initially tachycardic. She was hypoxic, with oxygen saturations in the 80s, and was found to have acute kidney injury, hyperbilirubinemia, and an elevated troponin. Imaging revealed bilateral pleural effusions, and CT of the abdomen and pelvis showed findings consistent with pyelonephritis, as well as cirrhosis, portal hypertension, splenomegaly, mild ascites, and renal calculi. Blood cultures grew gram-negative bacilli, and a preliminary PCR was positive for Enterobacterales and E. coli. She was treated for severe sepsis and presumed pyelonephritis with IV antibiotics and fluids, and lactulose was administered for hyperammonemia. She was also managed for acute hypoxemic respiratory failure and volume overload, with diuretics held due to borderline blood pressure and kidney dysfunction. 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 She had a history of recurrent anemia requiring transfusions, grade 1 esophageal varices, and portal- hypertensive gastropathy. She was bedbound at baseline. Her most recent hospitalization was in March 2025 for upper GI bleeding, and she had been seen in the ED two weeks prior for symptomatic anemia. In summary, the patient presented on the day of presentation to the ED with generalized weakness and shortness of breath, found to have severe sepsis secondary to complicated UTI/pyelonephritis, decompensated cirrhosis with hepatic encephalopathy, acute kidney injury, acute hypoxemic respiratory failure, and evidence of right-sided heart failure and volume overload. Her past medical history included right-sided heart failure, valvular heart disease, severe pulmonary hypertension, MASLD cirrhosis, chronic pancytopenia, celiac disease, DM, anxiety disorder, and past tobacco abuse. Note from 07/15/2025: The patient reports that she feels better. She denies dyspnea at rest. I discussed her condition with Dr. Ivonne Washington from Nephrology. Dr. Washington recommended repeating CT of abdomen without contrast to assess for any evidence of obstructive uropathy. Note from 07/16/2025: This afternoon the patient is off of Vasopressors, but complaining of a little cough and admits to increased dyspnea. She remains on Oxygen at 5 L/min with SpO2 in the low-90s. On exam she has mild expiratory wheezing, mostly over the left base, with scattered bilateral basal crackles. Review of Systems Review of Systems: All systems reviewed & are unremarkable except as noted in HPI & below Physical Exam Physical Exam: General: In no acute distress, using Oxygenvia nasal cannula. Skin: Warm and dry to touch. Noobvious lesions. Diffuse jaundice. Eyes: Bilateral icteric conjunctivae, seem a little less prominent than yesterday.Noconjunctival hyperemia or exudates.No periorbital edema. ENT: No oral thrush. No oropharyngeal erythema or exudates. Modified-Mallampati 3 (Hard and soft palate seen). Neck: No palpable masses or adenopathy. Respiratory: Diffusely decreased breath sounds, no wheezing or crackles. No use of accessory muscles and no prolonged exhalation. Cardiac: Distant sounds, regular rhythm; Grade 2/6 systolic murmur over [id number] border; no gallops, no rubs. Could not appreciate P2. could not appreciate JV pulse elevation. GI: Soft, nontender. Could not appreciate organomegaly. Extremities No cyanosis,trace edema. Neuro: No gross motor deficits. Seems appropriate. No facial-droop. Speech is c lear. Results & Data Results & Data Vital Signs (Past 12 Hours) Vital Signs Pulse Resp BP Pulse Ox O2 Del Method O2 Flow Rate 07/16/25 15:30 97/72 L 07/16/25 15:30 97/72 L 07/16/25 15:30 97 H 24 95 07/16/25 15:06 97 H 24 95 07/16/25 15:00 87/66 L 07/16/25 14:54 96 H 25 H 93 07/16/25 14:30 101/70 07/16/25 14:21 95 H 23 95 07/16/25 14:00 92/68 L 07/16/25 14:00 92/68 L 07/16/25 13:57 93 H 26 H 93 07/16/25 13:00 92 H 22 93 07/16/25 13:00 106/78 07/16/25 13:00 106/78 07/16/25 12:30 94 H 23 93 07/16/25 12:30 99/73 L 07/16/25 12:30 99/73 L 07/16/25 12:27 93 H 22 94 07/16/25 12:00 105/78 07/16/25 11:48 93 H 23 94 07/16/25 11:30 97/76 L 07/16/25 11:18 91 H 22 93 07/16/25 11:12 91 H 18 93 07/16/25 10:30 102/74 07/16/25 10:30 102/74 07/16/25 10:30 91 H 21 94 07/16/25 10:00 105/73 07/16/25 10:00 105/73 07/16/25 10:00 105/73 07/16/25 10:00 92 H 22 93 07/16/25 09:30 102/75 07/16/25 09:30 90 18 96 07/16/25 09:03 90 20 95 07/16/25 09:00 101/74 07/16/25 09:00 101/74 07/16/25 09:00 101/74 07/16/25 09:00 101/74 07/16/25 08:48 93 H 20 95 07/16/25 08:06 90 20 96 07/16/25 08:00 100/69 07/16/25 08:00 96 H 07/16/25 07:48 94 H 22 94 07/16/25 07:30 108/71 07/16/25 07:30 108/71 07/16/25 07:30 94 H 20 95 07/16/25 07:30 Nasal Cannula 4 07/16/25 07:03 91 H 17 95 07/16/25 07:00 103/81 07/16/25 07:00 103/81 07/16/25 06:57 89 18 95 07/16/25 06:30 89 22 95 07/16/25 06:30 95/74 L 07/16/25 06:00 90 20 102/74 96 Nasal Cannula 5 07/16/25 05:30 98/69 L 07/16/25 05:00 92 H 18 97/71 L 96 Nasal Cannula 5 Laboratory Results 07/13/25 22:10 Urine Culture - Final Urine,Straight Cath Escherichia coli 07/13/25 17:19 Aerobic Blood Culture - Final Blood Escherichia coli Anaerobic Blood Culture - Final Escherichia coli 07/13/25 17:03 Aerobic Blood Culture - Final Blood Escherichia coli Anaerobic Blood Culture - Final Escherichia coli 07/15/25 05:00 Aerobic Blood Culture - Preliminary Blood No growth in Aerobic bottle after 24 hours. Anaerobic Blood Culture - Preliminary No growth in Anaerobic bottle after 24 hours. 07/15/25 05:00 Aerobic Blood Culture - Preliminary Blood No growth in Aerobic bottle after 24 hours. Anaerobic Blood Culture - Preliminary No growth in Anaerobic bottle after 24 hours. 07/16/25 07/16/25 07/16/25 16:17 11:14 07:18 WBC RBC Hgb Hct MCV MCH MCHC RDW Std Deviation RDW Coeff of Dalia Plt Count Absolute Nucleated RBC Nucleated RBC % (auto) PT INR Sodium Potassium Chloride Carbon Dioxide Anion Gap BUN Creatinine Est Cr Clr Drug Dosing eGFR BUN/Creatinine Ratio Glucose POC Glucose 159 H 151 H 126 H Calcium Phosphorus Magnesium Total Bilirubin AST ALT Alkaline Phosphatase Total Protein Albumin Globulin Albumin/Globulin Ratio 07/16/25 07/15/25 07/15/25 04:38 21:12 20:38 WBC 8.97 RBC 2.67 L Hgb 8.4 L Hct 27.0 L MCV 101.1 H MCH 31.5 MCHC 31.1 L RDW Std Deviation 87.0 H RDW Coeff of Dalia 24.0 H Plt Count 42 L Absolute Nucleated RBC 0.73 H Nucleated RBC % (auto) 8.1 PT 15.1 H INR 1.5 H Sodium 136 135 L Potassium 3.8 3.9 Chloride 107 107 Carbon Dioxide 18 L 17 L Anion Gap 11 11 BUN 62 H 62 H Creatinine 2.23 H 2.41 H Est Cr Clr Drug Dosing 27.4 25.4 eGFR 24.33 22.17 BUN/Creatinine Ratio 27.8 H 25.7 H Glucose 120 H 163 H POC Glucose 157 H Calcium 8.4 L 8.3 L Phosphorus 4.8 D Magnesium 2.7 H Total Bilirubin 20.1 H AST 150 H ALT 66 H Alkaline Phosphatase 147 H Total Protein 6.3 Albumin 3.0 L Globulin 3.3 Albumin/Globulin Ratio 0.9 Diagnostic Findings Chest X-Ray 07/15/25 19:54 Exam(s): XR CXR 1 VIEW EXAM: XR Chest, 1 View CLINICAL HISTORY: Reason for exam: hypoxemia. TECHNIQUE: Frontal view of the chest. COMPARISON: 07/14/25 FINDINGS: Lungs: Patchy airspace disease seen in bilateral lung bases. Pleural space: Small bilateral pleural effusions. No pneumothorax. Heart: Unremarkable. No cardiomegaly. Mediastinum: Unremarkable. Normal mediastinal contour. Bones/joints: Unremarkable. No acute fracture. Tubes, lines and devices: Right-sided IJ line tip seen at the cavoatrial junction. IMPRESSION: 1. Bilateral basilar pneumonia 2. Small pleural effusions Electronically signed by: Raf Park MD 07/15/25 21:22 PM Medications Administered Home Medications Medication Instructions Recorded Confirmed Last Taken furosemide 40 mg tablet 40 mg PO DAILY 03/17/25 07/13/25 06/14/25 lactulose 10 gram/15 mL oral 30 ml PO TID 03/17/25 07/13/25 06/14/25 solution (Constulose) sildenafil (pulm.hypertension) 20 40 mg PO TID 03/17/25 07/13/25 06/14/25 mg tablet ferrous sulfate 325 mg (65 mg 325 mg PO DAILY 06/08/25 07/13/25 06/14/25 iron) tablet folic acid 1 mg tablet 1 mg PO DAILY 06/08/25 07/13/25 06/14/25 vitamin A 3,000 mcg (10,000 unit) 3,000 mcg PO DAILY 06/08/25 07/13/25 06/14/25 capsule fluticasone propionate 50 2 spray intranasal QAM 07/13/25 07/13/25 Unknown mcg/actuation nasal spray,suspension multivitamin 1 tab PO QAM 07/13/25 07/13/25 Unknown pantoprazole 40 mg tablet,delayed 40 mg PO QAM 07/13/25 07/13/25 Unknown release selexipag 200 mcg (140)-800 mcg 1 ea PO UD 07/13/25 07/13/25 Unknown (60) tablets in a dose pack (Uptravi) selexipag 200 mcg tablet (Uptravi) 200 mcg PO TID 07/13/25 07/13/25 Unknown zinc glycinate 20 mg capsule 20 mg PO DAILY 07/13/25 07/13/25 Unknown Active Medications Generic Name Dose Route Start Last Admin Trade Name Freq PRN Reason Stop Dose Admin Ergocalciferol 1,250 mcg 07/15/25 11:00 07/15/25 12:03 Ergocalciferol 1250 Mcg (50,000 Units) Cap PO 08/14/25 10:59 1,250 mcg Fr@0900 GEOFF Administration Ferrous Sulfate 325 mg 07/14/25 09:00 07/16/25 09:44 Ferrous Sulfate 325 Mg Tab PO 08/13/25 08:59 325 mg DAILY GEOFF Administration Fluticasone Propionate 2 sprays 07/14/25 09:00 07/16/25 09:44 Fluticasone Propionate Na Spr 16 Gm Btl NA 08/13/25 08:59 2 sprays QAM GEOFF Administration Folic Acid 1 mg 07/14/25 09:00 07/16/25 09:45 Folic Acid 1 Mg Tab PO 08/13/25 08:59 1 mg DAILY GEOFF Administration Promethazine HCl 6.25 mg in 50.25 mls @ 201 mls/hr 07/13/25 20:28 07/14/25 20:23 Phenergan IV 08/12/25 20:27 Infused Q6H PRN Infusion Nausea And Vomiting Ceftriaxone Sodium 2,000 mg in 50 mls @ 100 mls/hr 07/14/25 18:00 07/15/25 17:54 Rocephin IV 07/28/25 17:59 Infused Q24H GEOFF Infusion Norepinephrine Bitartrate 4 mg in 250 mls @ 0 mls/hr 07/14/25 22:45 07/16/25 16:00 Levophed/D5w IV 08/13/25 22:44 0 mcg/kg/min .Q0M GEOFF 0 mls/hr Titration Protocol 0 MCG/KG/MIN Insulin Aspart 0 units 07/15/25 16:30 07/16/25 16:26 Insulin Aspart Per Unit Charge SC 08/14/25 16:29 3 units ACHS GEOFF Administration Lactulose 20 gm 07/15/25 21:00 07/16/25 09:46 Lactulose Syrup 20 Gm/30 Ml Udc PO 08/12/25 21:44 20 gm BID GEOFF Administration Levalbuterol HCl 1.25 mg 07/14/25 17:53 07/14/25 18:14 Levalbuterol 1.25 Mg/3 Ml Neb NEB 08/13/25 17:52 1.25 mg Q6H PRN Administration Shortness Of Breath Or Wheezing Multivitamins 1 tab 07/14/25 09:00 07/16/25 09:45 Multivitamin Tab PO 08/13/25 08:59 1 tab QAM GEOFF Administration Oxycodone HCl 5 mg 07/13/25 20:28 07/16/25 14:52 Oxycodone Hcl Ir 5 Mg Tab (Immediate Release) PO 07/27/25 20:27 5 mg Q4H PRN Administration Pain Pantoprazole Sodium 40 mg 07/14/25 09:00 07/16/25 09:45 Pantoprazole 40 Mg Tab PO 08/13/25 08:59 40 mg QAM GEOFF Administration Rifaximin 550 mg 07/14/25 22:30 07/16/25 09:45 Rifaximin 550 Mg Tablet PO 08/13/25 22:29 550 mg BID GEOFF Administration Coding Level of Care Code 78949 CRITICAL CARE 1ST 30-74M Diagnoses Septic shock A41.9; R65.21 Hypoxia R09.02 Pulmonary arterial hypertension associated with portal hypertension I27.21; K76.6 Right heart failure due to pulmonary hypertension I27.29; I50.810 Acute renal failure, unspecified acute renal failure type N17.9 Acute renal failure type: unspecified Pyelonephritis N12 Chronic liver disease K76.9 Pancytopenia D61.818 Hyperbilirubinemia E80.6 Hepatic encephalopathy K76.82 (5) Acute renal failure Acute renal failure type: unspecified Qualified Code(s): N17.9 - Acute kidney failure, unspecified
[2025-07-16] MEDS: ALBUTEROL 0.083% NEBU SOLN 3 ML VIAL NEB STA (16:44)
--- NOTE | 2025-07-16 18:53 | XRay Report ---
EXAM: Radiograph of the Chest 1 View INDICATION: Hypoxia TECHNIQUE: Frontal and lateral views obtained. COMPARISON: 07/15/2025 FINDINGS: Lungs and pleural spaces: Increased patchy airspace disease in both lung bases. Stable very small bilateral pleural effusions and pulmonary vascular congestion. No pneumothorax. Heart: Stable large cardiac shadow. Mediastinum: Normal contour. Bones/joints: No fracture, erosion or dislocation. Soft tissues: No abnormality noted. No radiopaque foreign body noted. Tubes, lines and devices: Insert right internal jugular central venous catheter tip in the distal superior vena cava. Upper abdomen: No abnormality noted. IMPRESSION: CHF with new patchy bilateral basilar atelectasis or developing pneumonia. ACT 112: N/A Electronically signed by Radha Chappell 07-16-2025 6:53 PM
[2025-07-17] MEDS: FUROSEMIDE 40 MG/4 ML VIAL IV ONE ×2 (04:25→11:11)
[2025-07-17 05:21] LABS: Alanine Aminotransferase 75.0 U/L (7-52); Albumin Globulin Ratio 0.8 (0.9-2); Albumin Level 3.0 gm/dl (3.4-5.0); Alkaline Phosphatase 179.0 U/L (34-104); Anion Gap 12.0 (3-11); Bilirubin,Total 20.5 mg/dl (0.2-1.0); Blood Urea Nitrogen 64.0 mg/dl (6-23); Calcium 8.5 mg/dl (8.6-10.3); Carbon Dioxide 17.0 mmol/L (21-32); Chloride 105.0 mmol/L (98-107); Creatinine Clr Calc Pharmacy 29.4 ml/min; Globulin 3.7 gm/dl (2.5-4.0); Glucose 135.0 mg/dl (70-99(Fasting)); Magnesium 2.9 mg/dl (1.7-2.4); Potassium 4.0 mmol/L (3.5-5.1); Sodium 134.0 mmol/L (136-145); Total Protein 6.7 gm/dl (6.0-8.3)
[2025-07-17 05:35] LABS: INR 1.4 (0.9-1.1); Prothrombin Time 14.4 Seconds (9.0-12.0)
[2025-07-17 05:54] LABS: Hematocrit (blood only) 26.6 % (37.0-47.0); Hemoglobin 8.1 g/dl (12.0-16.0); Mean Corpuscular Hemoglobin 31.4 pg (25.0-34.0); Mean Corpuscular Volume 103.1 fL (80.0-100.0); Platelet Count 37 K/uL (130-400); RDW Standard Deviation 86.7 fL (36.4-46.3); Red Blood Count 2.58 M/uL (4.20-5.40); White Blood Count 10.48 K/ul (4.8-10.8)
[2025-07-17] MEDS: LIDOCAINE 5% 1 PATCH TD STA (06:35)
[2025-07-17] MEDS: NOREPINEPHRINE/D5W 4 MG/250 ML PLCT IV SCH (10:16)
[2025-07-17] MEDS: THIAMINE HCL 100 MG TAB PO SCH (10:46)
[2025-07-17] MEDS: NOREPINEPHRINE/D5W 4 MG/250 ML IV ONE (10:51)
[2025-07-17] MEDS: FUROSEMIDE 100 MG in SODIUM CHLORIDE 0.9% 90 ML IV SCH (11:11)
[2025-07-17] MEDS: ALBUMIN 25% 25 GM/100 ML VIAL IV SCH (11:11)
--- NOTE | 2025-07-17 11:23 | Nephrology Progress Note ---
Date of Service July 17, 2025 Assessment & Plan (1) Acute renal failure: Plan: worsening now Stage 3 borderline oliguric BRY in the setting of underlying /chronic right heart failure from severe pulmonary hypertension and advanced/complex liver disease. Baseline creatinine is 0.7-0.9. Presented w/ creatinine 1.7 on 07/13 in the evening; up to 2 today. Admission urinalysis from July 13 cloudy dark yellow with pH 5.5 with 2+ protein 2+ blood 2+ bilirubin 2+ leukocyte esterase 3+ bacteria with granular casts, greater than 1045 specific gravity. Etiologies include IV contrast exposure, septic shock, pyelonephritis, worsening heart failure/cardiorenal syndrome in addition to underlying cirrhosis. -monitor BMP -keep hgb > 7.5 -ok to try another lasix bolus of 80mg and lasix drip but most likely she will not respond. -needs to continue strict I/O Patient will likely not tolerate dialysis. Extensive discussion with patient that given multiorgan failure and persistent shock, she will not tolerate HD. She might benefit from palliative evaluation and comfort measure approach. Discussed case with Dr. Lake who agrees with lasix trial and palliative evaluation if no response. (2) Shock: Plan: combined septic and ?cardiac >> continue levophed as needed (3) Sepsis: Plan: continue antibiotics renally dosed. +E coli septicemia Admission and Anticipated Discharge Date Admission Date: July 13, 2025 Subjective Seen for BRY/HRS. She remains critically ill. She is complaining of SOB. She was off pressors for a couple of hours but restarted. She is oliguric. BP remains soft. trial of lasix 80mg iv yesterday with 12ml output. Review of Systems 2 Review of Systems: All other systems were reviewed and negative except as noted in HPI Physical Exam 2 Physical Exam: General exam: Appears comfortable, no acute distress HEENT: deep jaundice,Pupils are equal and reactive to light Neck: No JVD, neck is supple trachea is midline Respiratory system: Clear breath sounds bilaterally. Gastrointestinal: Abdomen is soft, non distended, non tender, bowel sounds are present CVS: Regular rate and rhythm. No murmurs, rubs or gallops Musculoskeletal: No joint or muscle tenderness Extremities: Non tender, no edema, peripheral pulses are present Neuro: Oriented, no tremors, no focal neurological deficits Skin: No rashes, deep jaundice Results & Data Vital Signs (Past 12 Hours) Vital Signs Temp Pulse Pulse Resp BP BP BP 07/17/25 10:30 97 H 23 07/17/25 10:30 100/78 07/17/25 10:05 36.5 C 86/56 L 07/17/25 10:00 94 H 16 76/52 L 07/17/25 09:30 96 H 18 07/17/25 09:15 94 H 18 07/17/25 08:30 93 H 16 07/17/25 08:00 91 H 15 87/62 L 07/17/25 08:00 93 H 07/17/25 07:51 93 H 17 07/17/25 07:30 07/17/25 06:48 93 H 16 07/17/25 06:00 93 H 15 86/61 L 07/17/25 05:47 95 H 20 07/17/25 05:41 100/63 07/17/25 05:01 94 H 33 H 98/72 L 07/17/25 04:30 97/64 L 07/17/25 04:06 101 H 14 07/17/25 04:00 36.4 C L 89/59 L 07/17/25 03:30 100/65 07/17/25 03:00 96 H 20 86/60 L 07/17/25 02:36 94/53 L 07/17/25 02:01 96 H 20 79/61 L 07/17/25 01:30 EST 93/56 L 07/17/25 01:00 EST 96 H 20 90/62 L 07/17/25 01:30 EDT 92/68 L 07/17/25 01:00 EDT 96 H 19 90/69 L 07/17/25 00:30 84/65 L Pulse Ox O2 Del Method O2 Flow Rate 07/17/25 10:30 07/17/25 10:30 07/17/25 10:05 07/17/25 10:00 95 07/17/25 09:30 94 07/17/25 09:15 96 07/17/25 08:30 96 07/17/25 08:00 97 07/17/25 08:00 07/17/25 07:51 96 07/17/25 07:30 Room Air 07/17/25 06:48 94 07/17/25 06:00 92 Nasal Cannula 4 07/17/25 05:47 91 07/17/25 05:41 07/17/25 05:01 95 Nasal Cannula 4 07/17/25 04:30 07/17/25 04:06 96 Nasal Cannula 4 07/17/25 04:00 07/17/25 03:30 07/17/25 03:00 95 Nasal Cannula 5 07/17/25 02:36 07/17/25 02:01 93 Nasal Cannula 4 07/17/25 01:30 EST 07/17/25 01:00 EST 93 Nasal Cannula 4 07/17/25 01:30 EDT 07/17/25 01:00 EDT 95 Nasal Cannula 5 07/17/25 00:30 Laboratory Results 07/17/25 04:48 07/17/25 04:48 WBC 10.48 RBC 2.58 L MCV 103.1 H MCH 31.4 MCHC 30.5 L RDW Std Deviation 86.7 H RDW Coeff of Dalia 23.9 H Plt Count 37 L Phosphorus 4.8 Albumin 3.0 L (1) Acute renal failure Acute renal failure type: unspecified Qualified Code(s): N17.9 - Acute kidney failure, unspecified
--- NOTE | 2025-07-17 14:05 | Critical Care Progress Note ---
Date of Service July 17, 2025 Assessment & Plan (1) Septic shock: Plan: * Infectious etiology E. coli pyelonephritis * Continue Rocephin * Back on Levophed, but I doubt that this is related to sepsis (2) Hypoxia: Plan: * Suspected on the basis of severe pulmonary hypertension * Cannot rule out mild intracardiac [id number] shunt associated with increased Right-atrial pressure * Probably pulmonary edema associated with impaired LV compliance associated with enlarged RV (3) Pulmonary arterial hypertension associated with portal hypertension: Plan: * The patient had been on Selexipag and Sildenafil (40 tid) * Selexipag is contraindicated with her current liver function. * I discussed with the patient the fact that resuming Sildenafil can drop blood pressure, and that we can try to support that with the vasopressors, and she understands that there is no guarantee that it will help. She agrees with trying to resume Sildenafil at a low dose (20 tid). (4) Right heart failure due to pulmonary hypertension: (5) Acute renal failure: Plan: * Multifactorial * Possible element of Hepatorenal syndrome superimposed on sepsis, impaired cardiac output, and contrast-induced nephropathy * Currently Oliguric * No response to Lasix boluses and drip. Albumin supplementation doesn't seem to be helping. * Nephrology discussed pros and cons of dialysis with the patient. No decision made. 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 This is a life/limb threatening event. This includes time spent evaluating the patient, direct bedside care, chart review, placing orders, interpreting diagnostic studies, communicating with consultants, attending providers, patient, and family members, as well as required patient management activities. This time is exclusive of all separately-billable procedures and teaching time, and separate from and in addition to any other critical care service time. Housekeeping items: Feeding/Fluids: Eating. No supplemental IV fluids at this time Analgesia: Oxycodone for back pain Sedation: None needed at this time. Thromboprophylaxis: SCDs Head-up Position: Not applicable Ulcer Prophylaxis: Protonix Glycemic Control: None needed at this time. Spontaneous Breathing Trial: Not applicable Bowel Care: Getting Lactulose Indwelling Catheters/ Removal: Delgado catheter for accurate I/O. Drug de-escalation: Rocephin for E. coli. Disposition: Continue in ICU. Admission and Anticipated Discharge Date Admission Date: July 13, 2025 Subjective The patient is a very pleasant 64-year-old female who presented to the ED for evaluation of generalized weakness. She had developed generalized weakness and shortness of breath that morning, following a blood transfusion the previous day for chronically low hemoglobin. She denied any rectal bleeding or abdominal pain, but reported some bleeding with urination and a recent history of dysuria and hematuria. She denied cough, hemoptysis, chest pain, or fluid retention. During her ED course, she was found to be mildly hypotensive and initially tachycardic. She was hypoxic, with oxygen saturations in the 80s, and was found to have acute kidney injury, hyperbilirubinemia, and an elevated troponin. Imaging revealed bilateral pleural effusions, and CT of the abdomen and pelvis showed findings consistent with pyelonephritis, as well as cirrhosis, portal hypertension, splenomegaly, mild ascites, and renal calculi. Blood cultures grew gram-negative bacilli, and a preliminary PCR was positive for Enterobacterales and E. coli. She was treated for severe sepsis and presumed pyelonephritis with IV antibiotics and fluids, and lactulose was administered for hyperammonemia. She was also managed for acute hypoxemic respiratory failure and volume overload, with diuretics held due to borderline blood pressure and kidney dysfunction. 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 She had a history of recurrent anemia requiring transfusions, grade 1 esophageal varices, and portal- hypertensive gastropathy. She was bedbound at baseline. Her most recent hospi talization was in March 2025 for upper GI bleeding, and she had been seen in the ED two weeks prior for symptomatic anemia. In summary, the patient presented on the day of presentation to the ED with generalized weakness and shortness of breath, found to have severe sepsis secondary to complicated UTI/pyelonephritis, decompensated cirrhosis with hepatic encephalopathy, acute kidney injury, acute hypoxemic respiratory failure, and evidence of right-sided heart failure and volume overload. Her past medical history included right-sided heart failure, valvular heart disease, severe pulmonary hypertension, MASLD cirrhosis, chronic pancytopenia, celiac disease, DM, anxiety disorder, and past tobacco abuse. Note from 07/15/2025: The patient reports that she feels better. She denies dyspnea at rest. I discussed her condition with Dr. Ivonne Washington from Nephrology. Dr. Washington recommended repeating CT of abdomen without contrast to assess for any evidence of obstructive uropathy. Note from 07/16/2025: This afternoon the patient is off of Vasopressors, but complaining of a little cough and admits to increased dyspnea. She remains on Oxygen at 5 L/min with SpO2 in the low-90s. On exam she has mild expiratory wheezing, mostly over the left base, with scattered bilateral basal crackles. Note from 07/17/2025: Back on Vasopressin today. Oliguric today. No response to Lasix boluses and drip. Albumin supplementation doesn't seem to be helping. Patient feels tired. Denied dyspnea but has a moist non-productive cough. Remains on Rocephin. Nephrology discussed pros and cons of dialysis with the patient. No decision made. I discussed patient's condition and prognosis with her son and son's significant other (Palliative [employer]). I recommended Palliative consult. I discussed with the patient the fact that resuming Sildenafil can drop blood pressure, and that we can try to support that with the vasopressors, and she understands that there is no guarantee that it will help. She agrees with trying to resume Sildenafil at a low dose (20 tid). Review of Systems Review of Systems: All systems reviewed & are unremarkable except as noted in HPI & below Physical Exam Physical Exam: General: In no acute distress, using Oxygenvia nasal cannula. Skin: Warm and dry to touch. Noobvious lesions. Diffuse jaundice. Eyes: Bilateral icteric conjunctivae.Noconjunctival hyperemia or exudates.No periorbital edema. Neck: No palpable masses or adenopathy. Respiratory: Diffusely decreased breath sounds, no wheezing or crackles. No use of accessory muscles and no prolonged exhalation. Cardiac: Distant sounds, regular rhythm; Grade 2-3/6 systolic murmur over [id number] border; no gallops, no rubs. Could not appreciate P2. GI: Soft, nontender. Could not appreciate organomegaly. Extremities No cyanosis,trace-1+ edema. Neuro: No gross motor deficits. Seems appropriate. No facial-droop. Speech is clear. Results & Data Results & Data Vital Signs (Past 12 Hours) Vital Signs Temp Pulse Pulse Resp BP BP BP 07/17/25 10:30 97 H 23 07/17/25 10:30 100/78 07/17/25 10:05 36.5 C 86/56 L 07/17/25 10:00 94 H 16 76/52 L 07/17/25 09:30 96 H 18 07/17/25 09:15 94 H 18 07/17/25 08:30 93 H 16 07/17/25 08:00 91 H 15 87/62 L 07/17/25 08:00 93 H 07/17/25 07:51 93 H 17 07/17/25 07:30 07/17/25 06:48 93 H 16 07/17/25 06:00 93 H 15 86/61 L 07/17/25 05:47 95 H 20 07/17/25 05:41 100/63 07/17/25 05:01 94 H 33 H 98/72 L 07/17/25 04:30 97/64 L 07/17/25 04:06 101 H 14 07/17/25 04:00 36.4 C L 89/59 L 07/17/25 03:30 100/65 07/17/25 03:00 96 H 20 86/60 L 07/17/25 02:36 94/53 L Pulse Ox O2 Del Method O2 Flow Rate 07/17/25 10:30 07/17/25 10:30 07/17/25 10:05 07/17/25 10:00 95 07/17/25 09:30 94 07/17/25 09:15 96 07/17/25 08:30 96 07/17/25 08:00 97 07/17/25 08:00 07/17/25 07:51 96 07/17/25 07:30 Room Air 07/17/25 06:48 94 07/17/25 06:00 92 Nasal Cannula 4 07/17/25 05:47 91 11/02/25 05:41 07/17/25 05:01 95 Nasal Cannula 4 07/17/25 04:30 07/17/25 04:06 96 Nasal Cannula 4 07/17/25 04:00 07/17/25 03:30 07/17/25 03:00 95 Nasal Cannula 5 07/17/25 02:36 Laboratory Results 07/15/25 05:00 Aerobic Blood Culture - Preliminary Blood No growth in Aerobic bottle after 48 hours. Anaerobic Blood Culture - Preliminary No growth in Anaerobic bottle after 48 hours. 07/15/25 05:00 Aerobic Blood Culture - Preliminary Blood No growth in Aerobic bottle after 48 hours. Anaerobic Blood Culture - Preliminary No growth in Anaerobic bottle after 48 hours. 07/17/25 07/17/25 07/17/25 11:48 07:13 07:02 WBC RBC Hgb Hct MCV MCH MCHC RDW Std Deviation RDW Coeff of Dalia Plt Count Absolute Nucleated RBC Nucleated RBC % (auto) PT INR Sodium Potassium Chloride Carbon Dioxide Anion Gap BUN Creatinine Est Cr Clr Drug Dosing eGFR BUN/Creatinine Ratio Glucose POC Glucose 151 H 138 H Calcium Phosphorus Magnesium Total Bilirubin AST ALT Alkaline Phosphatase B-Natriuretic Peptide > 4700 H Total Protein Albumin Globulin Albumin/Globulin Ratio 07/17/25 07/16/25 07/16/25 04:48 20:42 16:17 WBC 10.48 RBC 2.58 L Hgb 8.1 L Hct 26.6 L MCV 103.1 H MCH 31.4 MCHC 30.5 L RDW Std Deviation 86.7 H RDW Coeff of Dalia 23.9 H Plt Count 37 L Absolute Nucleated RBC 0.52 H Nucleated RBC % (auto) 5.0 PT 14.4 H INR 1.4 H Sodium 134 L Potassium 4.0 Chloride 105 Carbon Dioxide 17 L Anion Gap 12 H BUN 64 H Creatinine 2.08 H Est Cr Clr Drug Dosing 29.4 eGFR 26.45 BUN/Creatinine Ratio 30.8 H Glucose 135 H POC Glucose 167 H 159 H Calcium 8.5 L Phosphorus 4.8 Magnesium 2.9 H Total Bilirubin 20.5 H AST 146 H ALT 75 H Alkaline Phosphatase 179 H B-Natriuretic Peptide Total Protein 6.7 Albumin 3.0 L Globulin 3.7 Albumin/Globulin Ratio 0.8 L Diagnostic Findings Chest X-Ray 07/16/25 16:33 EXAM: Radiograph of the Chest 1 View INDICATION: Hypoxia TECHNIQUE: Frontal and lateral views obtained. COMPARISON: 07/15/2025 FINDINGS: Lungs and pleural spaces: Increased patchy airspace disease in both lung bases. Stable very small bilateral pleural effusions and pulmonary vascular congestion. No pneumothorax. Heart: Stable large cardiac shadow. Mediastinum: Normal contour. Bones/joints: No fracture, erosion or dislocation. Soft tissues: No abnormality noted. No radiopaque foreign body noted. Tubes, lines and devices: Insert right internal jugular central venous catheter tip in the distal superior vena cava. Upper abdomen: No abnormality noted. IMPRESSION: CHF with new patchy bilateral basilar atelectasis or developing pneumonia. ACT 112: N/A Electronically signed by Radha Chappell 07-16-2025 6:53 PM Medications Administered Home Medications Medication Instructions Recorded Confirmed Last Taken furosemide 40 mg tablet 40 mg PO DAILY 03/17/25 07/13/25 06/14/25 lactulose 10 gram/15 mL oral 30 ml PO TID 03/17/25 07/13/25 06/14/25 solution (Constulose) sildenafil (pulm.hypertension) 20 40 mg PO TID 03/17/25 07/13/25 06/14/25 mg tablet ferrous sulfate 325 mg (65 mg 325 mg PO DAILY 06/08/25 07/13/25 06/14/25 iron) tablet folic acid 1 mg tablet 1 mg PO DAILY 06/08/25 07/13/25 06/14/25 vitamin A 3,000 mcg (10,000 unit) 3,000 mcg PO DAILY 06/08/25 07/13/25 06/14/25 capsule fluticasone propionate 50 2 spray intranasal QAM 07/13/25 07/13/25 Unknown mcg/actuation nasal spray,suspension multivitamin 1 tab PO QAM 07/13/25 07/13/25 Unknown pantoprazole 40 mg tablet,delayed 40 mg PO QAM 07/13/25 07/13/25 Unknown release selexipag 200 mcg (140)-800 mcg 1 ea PO UD 07/13/25 07/13/25 Unknown (60) tablets in a dose pack (Uptravi) selexipag 200 mcg tablet (Uptravi) 200 mcg PO TID 07/13/25 07/13/25 Unknown zinc glycinate 20 mg capsule 20 mg PO DAILY 07/13/25 07/13/25 Unknown Active Medications Generic Name Dose Route Start Last Admin Trade Name Rudyq PRN Reason Stop Dose Admin Ergocalciferol 1,250 mcg 07/15/25 11:00 07/15/25 12:03 Ergocalciferol 1250 Mcg (50,000 Units) Cap PO 08/14/25 10:59 1,250 mcg Fr@0900 GEOFF Administration Ferrous Sulfate 325 mg 07/14/25 09:00 07/17/25 08:43 Ferrous Sulfate 325 Mg Tab PO 08/13/25 08:59 325 mg DAILY GEOFF Administration Fluticasone Propionate 2 sprays 07/14/25 09:00 07/17/25 08:44 Fluticasone Propionate Na Spr 16 Gm Btl NA 08/13/25 08:59 2 sprays QAM GEOFF Administration Folic Acid 1 mg 07/14/25 09:00 07/17/25 08:43 Folic Acid 1 Mg Tab PO 08/13/25 08:59 1 mg DAILY GEOFF Administration Promethazine HCl 6.25 mg in 50.25 mls @ 201 mls/hr 07/13/25 20:28 07/14/25 20:23 Phenergan IV 08/12/25 20:27 Infused Q6H PRN Infusion Nausea And Vomiting Ceftriaxone Sodium 2,000 mg in 50 mls @ 100 mls/hr 07/14/25 18:00 07/16/25 18:43 Rocephin IV 07/28/25 17:59 Infused Q24H GEOFF Infusion Albumin Human 25 gm in 100 mls @ 25 mls/hr 07/17/25 12:00 07/17/25 11:11 Albumin 25% IV 07/18/25 11:55 25 mls/hr Q6 GEOFF Administration Norepinephrine Bitartrate 4 mg in 250 mls @ 14.138 mls/hr 07/17/25 10:15 07/17/25 10:16 Levophed/D5w IV 08/16/25 10:14 0.05 mcg/kg/min .[id number] GEOFF 14.1 mls/hr Administration Protocol 0.05 MCG/KG/MIN Furosemide 100 mg/ Sodium 100 mls @ 10 mls/hr 07/17/25 10:30 07/17/25 11:11 Chloride IV 07/18/25 10:29 10 mg/hr .Q10H GEOFF 10 mls/hr Administration 10 MG/HR Insulin Aspart 0 units 07/15/25 16:30 07/17/25 12:53 Insulin Aspart Per Unit Charge SC 08/14/25 16:29 1 units ACHS GEOFF Administration Lactulose 20 gm 07/15/25 21:00 07/17/25 08:43 Lactulose Syrup 20 Gm/30 Ml Udc PO 08/12/25 21:44 20 gm BID GEOFF Administration Levalbuterol HCl 1.25 mg 07/14/25 17:53 07/16/25 19:45 Levalbuterol 1.25 Mg/3 Ml Neb NEB 08/13/25 17:52 1.25 mg Q6H PRN Administration Shortness Of Breath Or Wheezing Multivitamins 1 tab 07/14/25 09:00 07/17/25 08:43 Multivitamin Tab PO 08/13/25 08:59 1 tab QAM GEOFF Administration Pantoprazole Sodium 40 mg 07/14/25 09:00 07/17/25 08:43 Pantoprazole 40 Mg Tab PO 08/13/25 08:59 40 mg QAM GEOFF Administration Rifaximin 550 mg 07/14/25 22:30 07/17/25 08:43 Rifaximin 550 Mg Tablet PO 08/13/25 22:29 550 mg BID GEOFF Administration Thiamine HCl 100 mg 07/17/25 09:00 07/17/25 10:46 Thiamine Hcl 100 Mg Tab PO 08/16/25 08:59 Not Given QAM GEOFF Coding Level of Care Code 43533 CRITICAL CARE 1ST 30-74M Diagnoses Septic shock A41.9; R65.21 Hypoxia R09.02 Pulmonary arterial hypertension associated with portal hypertension I27.21; K76.6 Right heart failure due to pulmonary hypertension I27.29; I50.810 Acute renal failure, unspecified acute renal failure type N17.9 Acute renal failure type: unspecified Pyelonephritis N12 Chronic liver disease K76.9 Pancytopenia D61.818 Hyperbilirubinemia E80.6 Hepatic encephalopathy K76.82 Time Spent (min) 65 (5) Acute renal failure Acute renal failure type: unspecified Qualified Code(s): N17.9 - Acute kidney failure, unspecified
--- NOTE | 2025-07-17 15:20 | Hospitalist Progress Note ---
Date of Service July 17, 2025 Assessment & Plan (1) Severe sepsis: Plan: Septic shock Acute pyelonephritis E. coli bacteremia Suspected developing renal abscess Lactic acidosis--chronic likely multifactorial due to infection, hepatorenal failure --CT ABD: New 3 cm area of altered enhancement in the upper right kidney, most likely due to pyelonephritis. Apparent mild wall thickening of the right renal pelvis, which may also be due to infection. Bilateral renal calculi and left renal cysts. Cirrhosis and portal hypertension. Splenomegaly Small to moderate amount of ascites. Small hepatic cysts . Cholelithiasis without evidence of acute cholecystitis . Unchanged foreign body within the gastric lumen. Apparent mild colonic wall thickening. This could be due to secondary edema from hypoalbuminemia, though infectious colitis or inflammatory bowel disease is also possible --Repeat CT abdomen: Nephrolithiasis, 3.7 cm hypoenhancing focus within the upper pole of the right kidney with decreased enhancement since prior CT. This could represent a focus of pyelonephritis. A developing renal abscess or renal infarct are within the differential. Cirrhotic liver with manifestations of portal hypertension including splenomegaly, moderate ascites and varices formation. Moderate right and small left pleural effusions, increased in size since prior exam. Cholelithiasis. --Blood Cultures:12/17: Growing E. coli --Repeat blood cultures negative to date --Urine culture: E. coli Continue IV Rocephin Received IV fluids On Levophed this morning Appreciate manager recruitment help Continue management per ICU team Decompensated cirrhosis/Hepatic encephalopathy--POA H/O MAFLD Elevated ammonia levels CT scan as above Monitor MELD score Continue lactulose to titrate to 3-4 good bowel movements per day Low-sodium diet Appreciate GI input Needs follow-up with hepatology Dr. Dorado on discharge Avoid hepatotoxic agents as able LFTs continue to worsen Also started on rifaximin Possible Hepatorenal syndrome Hold Lasix Avoid hepatotoxic agents as able Sildenafil on hold due to hypotension Oliguria Appreciate nephrology input Plan to be started on IV albumin, Lasix Monitor I's and O's May not tolerate dialysis Palliative care consulted to address goals of care Troponin elevation Likely due to renal dysfunction/sepsis Denies any chest pain Echo showed no wall motion abnormality next Severe pulmonary hypertension Severe tricuspid regurgitation --ECHO: Right ventricle severely dilated. Right ventricle systolic function is moderately reduced. Right atrium severely dilated. Left ventricular cavity is small. EF 65 to 70%. Flattened septum consistent with RV pressure/volume overload. Severe tricuspid regurgitation. Severe pulmonary hypertension is present. Compared to prior study, no significant change. --Resume home medications as able Hyperglycemia HbA1c unreliable due to significant anemia Insulin sliding scale for now Monitor blood glucose levels Acute hypoxemic respiratory failure Nocturnal hypoxemia CTA showed no PE. Small bilateral pleural effusions, atelectasis. Supplemental oxygen as needed. Wean off of oxygen as able Started on IV Lasix along with albumin Chronic pancytopenia secondary to liver disease Anemia of chronic disease --S/P 1 unit PRBCs Monitor H&H and transfuse as needed Anemia workup reviewed Currently denies any bleeding issues Vitamin D deficiency Started on vitamin D supplements Prolonged QTc Avoid QTc prolonging meds Monitor Ambulatory dysfunction Bedbound at baseline per patient Past tobacco abuse As per records Metallic foreign body gastric lumen on CT scan Thought to be metallic clip Also documented on prior imaging, records DVT Px: SCDs Re: Thrombocytopenia, history of GI bleed CODE STATUS Full code Disposition PT OT prior to discharge Poor prognosis Admission and Anticipated Discharge Date Admission Date: July 13, 2025 Subjective Patient is seen and examined at bedside Noted to have oliguria Discussed with patient's family at bedside Also discussed with nephrology today Patient continues to have dyspnea on minimal exertion Unable to wean off of pressors currently Plan to be started on IV albumin, Lasix drip today Patient denies any chest pain, nausea, vomiting, abdominal pain Review of Systems Review of Systems: All systems reviewed & are unremarkable except as noted in Subjective Physical Exam Physical Exam: Physical Exam: Vitals signs as noted above General Appearance:Moderately built and nourished, no apparent distress, frail, chronic ill appearing Head: normocephalic, Atraumatic Eyes: normal inspection, EOMI Neck: supple, Trachea midline Respiratory/Chest: Decreased breath sounds, basal crackles, No accessory muscle use Cardiovascular: S1, S2, + murmur, Tachycardia Abdomen/GI:Soft, mildly distended, Non tender, Bowel sounds present Extremities/Musculoskeletal:normal inspection, Trace edema Neurologic/Psych:AAOX3, grossly no focal neurological deficits Skin: normal color, warm,+Jaundice Results & Data Results & Data Vital Signs (Past 12 Hours) Vital Signs Temp Pulse Pulse Resp BP BP BP 07/17/25 14:30 92 H 19 07/17/25 14:03 93 H 17 07/17/25 13:39 94 H 18 07/17/25 13:00 92 H 28 H 110/75 07/17/25 12:57 91 H 28 H 07/17/25 12:00 94 H 17 105/78 07/17/25 11:45 106 H 29 H 07/17/25 11:00 91 H 16 103/76 07/17/25 10:30 97 H 23 07/17/25 10:30 100/78 07/17/25 10:05 36.5 C 86/56 L 07/17/25 10:00 94 H 16 76/52 L 07/17/25 09:30 96 H 18 07/17/25 09:15 94 H 18 07/17/25 08:30 93 H 16 07/17/25 08:00 91 H 15 87/62 L 07/17/25 08:00 93 H 07/17/25 07:51 93 H 17 07/17/25 07:30 07/17/25 06:48 93 H 16 07/17/25 06:00 93 H 15 86/61 L 07/17/25 05:47 95 H 20 07/17/25 05:41 100/63 07/17/25 05:01 94 H 33 H 98/72 L 07/17/25 04:30 97/64 L 07/17/25 04:06 101 H 14 07/17/25 04:00 36.4 C L 89/59 L 07/17/25 03:30 100/65 Pulse Ox O2 Del Method O2 Flow Rate 07/17/25 14:30 94 07/17/25 14:03 94 07/17/25 13:39 97 07/17/25 13:00 95 07/17/25 12:57 96 07/17/25 12:00 92 07/17/25 11:45 66 L 07/17/25 11:00 95 07/17/25 10:30 07/17/25 10:30 07/17/25 10:05 07/17/25 10:00 95 07/17/25 09:30 94 07/17/25 09:15 96 07/17/25 08:30 96 07/17/25 08:00 97 07/17/25 08:00 07/17/25 07:51 96 07/17/25 07:30 Room Air 07/17/25 06:48 94 07/17/25 06:00 92 Nasal Cannula 4 07/17/25 05:47 91 07/17/25 05:41 07/17/25 05:01 95 Nasal Cannula 4 07/17/25 04:30 07/17/25 04:06 96 Nasal Cannula 4 07/17/25 04:00 07/17/25 03:30 Laboratory Results Short CBC 07/17/25 Range/Units 04:48 WBC 10.48 (4.8-10.8) K/ul Hgb 8.1 L (12.0-16.0) g/dl Hct 26.6 L (37.0-47.0) % Plt Count 37 L (130-400) K/uL BMP 07/17/25 04:48 Sodium 134 L Potassium 4.0 Chloride 105 Carbon Dioxide 17 L BUN 64 H Creatinine 2.08 H Glucose 135 H Calcium 8.5 L Liver Function 07/17/25 Range/Units 04:48 Total Bilirubin 20.5 H (0.2-1.0) mg/dl AST 146 H (13-39) U/L ALT 75 H (7-52) U/L Alkaline Phosphatase 179 H (34-104) U/L Albumin 3.0 L (3.4-5.0) gm/dl
[2025-07-17] MEDS: REMOVE LIDODERM PATCH SCH (16:16)
[2025-07-17] MEDS: SILDENAFIL CITRATE 20 MG TABLET PO SCH (18:31)
[2025-07-17] MEDS: STAT IV Infusion **Titration per Protocol STA (21:26)
[2025-07-18 06:30] LABS: Hematocrit (blood only) 23.8 % (37.0-47.0); Hemoglobin 7.4 g/dl (12.0-16.0); Mean Corpuscular Hemoglobin 32.3 pg (25.0-34.0); Mean Corpuscular Volume 103.9 fL (80.0-100.0); Platelet Count 44 K/uL (130-400); RDW Standard Deviation 89.8 fL (36.4-46.3); Red Blood Count 2.29 M/uL (4.20-5.40); White Blood Count 10.73 K/ul (4.8-10.8)
[2025-07-18 07:03] LABS: Alanine Aminotransferase 57.0 U/L (7-52); Albumin Globulin Ratio 1.3 (0.9-2); Albumin Level 4.0 gm/dl (3.4-5.0); Alkaline Phosphatase 129.0 U/L (34-104); Anion Gap 14.0 (3-11); Bilirubin,Total 22.1 mg/dl (0.2-1.0); Blood Urea Nitrogen 82.0 mg/dl (6-23); Calcium 9.1 mg/dl (8.6-10.3); Carbon Dioxide 17.0 mmol/L (21-32); Chloride 105.0 mmol/L (98-107); Creatinine Clr Calc Pharmacy 24.4 ml/min; Globulin 3.0 gm/dl (2.5-4.0); Glucose 121.0 mg/dl (70-99(Fasting)); Potassium 4.0 mmol/L (3.5-5.1); Sodium 136.0 mmol/L (136-145); Total Protein 7.0 gm/dl (6.0-8.3)
--- NOTE | 2025-07-18 10:11 | Palliative Care Consultation ---
Date of Consultation July 18, 2025 History of Present Illness Requesting Physician: Tai Multani MD Attending Physician: Tai Multani MD History of Present Illness 64 yo female here for sepsis/pyelonephritis. GI has been consulted for "decompensated cirrhosis." Patient follows with outpatient hepatology (Dr. Dorado, [facility]) for possible MAFLD and possible autoimmune liver disease. In the ED, she was found to have elevated troponin and a procalcitonin. Her ammonia was slightly elevated on admission. Her T bili is 17.8, D bili 6.9, AST 50, ALT 25. BUN/Cr 41/1.91. INR 1.4. She denies n/v. She notes 3-4 bowel movements daily. She denies abdominal pain. She is noted to have kidney dysfunction and was found to have acute hypoxemic respiratory failure with bilateral pleural effusions and imaging. She has a history of right sided heart failure and presented with signs of volume overload. In March, patient had an EGD at [facility] that showed grade 1 esophageal varices and portal hypertensive gastropathy. She was recently in the ED for anemia and was transfused. No GI bleeding at that time. Current H/H is 8.8/23.8. No alcohol consumption. Sodium intake unclear. A preliminary PCR was positive for Enterobacterales & E coli. Allergies Allergy/AdvReac Type Severity Reaction Status Date / Time gluten Allergy Unknown Unknown Verified 07/13/25 21:48 Home Medications Medication Instructions Recorded Confirmed Type furosemide 40 mg tablet 40 mg PO DAILY 03/17/25 07/13/25 History lactulose 10 gram/15 mL oral 30 ml PO TID 03/17/25 07/13/25 History solution (Constulose) sildenafil (pulm.hypertension) 20 40 mg PO TID 03/17/25 07/13/25 History mg tablet ferrous sulfate 325 mg (65 mg 325 mg PO DAILY 06/08/25 07/13/25 History iron) tablet folic acid 1 mg tablet 1 mg PO DAILY 06/08/25 07/13/25 History vitamin A 3,000 mcg (10,000 unit) 3,000 mcg PO DAILY 06/08/25 07/13/25 History capsule fluticasone propionate 50 2 spray intranasal QAM 07/13/25 07/13/25 History mcg/actuation nasal spray,suspension multivitamin 1 tab PO QAM 07/13/25 07/13/25 History pantoprazole 40 mg tablet,delayed 40 mg PO QAM 07/13/25 07/13/25 History release selexipag 200 mcg (140)-800 mcg 1 ea PO UD 07/13/25 07/13/25 History (60) tablets in a dose pack (Uptravi) selexipag 200 mcg tablet (Uptravi) 200 mcg PO TID 07/13/25 07/13/25 History zinc glycinate 20 mg capsule 20 mg PO DAILY 07/13/25 07/13/25 History Patient History Medical History Anxiety URI, acute Abnormal ECG SOB (shortness of breath) on exertion Elevated troponin I level Abnormal EKG Chest pain COVID-19 Encounter for pre-operative examination Cough Vertigo Pneumonia Tobacco abuse Pulmonary nodules Anemia Elevated bilirubin Right heart failure due to pulmonary hypertension Cirrhosis Surgical History History of tubal ligation History of D&C Nausea and vomiting after administration of anesthetic agent Family History Mother Coronary heart disease CABG in 70s Alzheimer disease Father Coronary heart disease CABG in 70s Family history of diabetes mellitus Brother Family history of diabetes mellitus Other Hypertension Myocardial infarction Social History Smoking Status: Unknown if ever smoked packs per day: 10; Second Hand Exposure: No; Do You Dip or Chew Tobacco: No; Hx Alcohol Use: No Hx Substance Use: No Preferred Language: Azerbaijani Communication Ability: Effective Collection Development Librarian Required: No Beliefs That Will Affect Care: None marital status: Current Living Situation: Family Current Living Situation Comment: Lives with daughter Feels Safe at Home: Yes Safety Concerns: Feels Safe At This Time Assistive Devices: None Results & Data Vital Signs (Past 12 Hours) Vital Signs Temp Pulse Pulse Resp BP BP BP 07/18/25 10:02 36.3 C L 88 20 114/70 07/18/25 09:06 36.7 C 86 16 96/69 L 07/18/25 08:39 36.7 C 85 19 07/18/25 08:03 36.7 C 86 22 07/18/25 08:00 85 07/18/25 07:37 07/18/25 07:37 07/18/25 07:30 36.7 C 89 21 07/18/25 07:00 36.3 C L 83 17 07/18/25 06:36 36.8 C 84 18 102/67 07/18/25 06:00 36.9 C 85 16 82/57 L 07/18/25 05:33 36.9 C 86 17 104/67 07/18/25 05:00 36.9 C 86 17 81/65 L 07/18/25 04:30 97/65 L 07/18/25 04:06 36.6 C 86 16 96/55 L 07/18/25 03:36 36.3 C L 83 14 88/62 L 07/18/25 03:03 36.0 C L 80 15 90/62 L 07/18/25 02:30 36.1 C L 80 16 103/68 07/18/25 02:03 35.6 C L 77 21 94/62 L 07/18/25 01:36 35.7 C L 77 25 H 91/58 L 07/18/25 01:00 36.0 C L 77 24 84/62 L 07/18/25 00:31 69/55 L 07/18/25 00:00 36.0 C L 80 25 H 81/65 L 07/18/25 00:00 78 07/17/25 23:30 92/70 L 07/17/25 23:09 36.1 C L 82 15 114/84 07/17/25 22:30 93/68 L Pulse Ox Pulse Ox O2 Del Method O2 Del Method O2 Flow Rate O2 Flow Rate 07/18/25 10:02 92 Nasal Cannula 5 07/18/25 09:06 92 Nasal Cannula 5 07/18/25 08:39 92 07/18/25 08:03 92 07/18/25 08:00 07/18/25 07:37 Nasal Cannula 5 07/18/25 07:37 92 Nasal Cannula 5 07/18/25 07:30 90 07/18/25 07:00 07/18/25 06:36 93 Nasal Cannula 5 07/18/25 06:00 92 Nasal Cannula 5 07/18/25 05:33 91 Nasal Cannula 4 07/18/25 05:00 90 Nasal Cannula 4 07/18/25 04:30 07/18/25 04:06 90 Nasal Cannula 4 07/18/25 03:36 92 Nasal Cannula 4 07/18/25 03:03 94 Nasal Cannula 4 07/18/25 02:30 91 Nasal Cannula 4 07/18/25 02:03 93 Nasal Cannula 4 07/18/25 01:36 90 Nasal Cannula 4 07/18/25 01:00 93 Nasal Cannula 4 07/18/25 00:31 07/18/25 00:00 90 Nasal Cannula 4 07/18/25 00:00 07/17/25 23:30 07/17/25 23:09 92 Nasal Cannula 4 07/17/25 22:30 PG Care Time/CCT Total # of Minutes Spent Total Time Spent with Patient: Total time spent is greater than 50% in coordination of care (as documented) at patient's floor/unit and/or counseling patient: Coding
--- NOTE | 2025-07-18 10:31 | Nephrology Progress Note ---
Date of Service July 18, 2025 Assessment & Plan Admission and Anticipated Discharge Date Admission Date: July 13, 2025 Subjective Assessment & Plan (1) Acute renal failure: Plan: worsening Oliguric Stage 3 BRY in the setting of underlying /chronic right heart failure from severe pulmonary hypertension and advanced/complex liver disease. Baseline creatinine is 0.7-0.9. Presented w/ creatinine 1.7 on 07/13 in the evening; up to 2.5 today. Etiologies include IV contrast exposure, septic shock, pyelonephritis, worsening heart failure/cardiorenal syndrome in addition to underlying cirrhosis. -monitor BMP -keep hgb > 7.5 -ok to try another lasix bolus of 80mg and/or lasix drip but most likely she will not respond. -needs to continue strict I/O Patient will not tolerate dialysis. Also given her overall situation she is not a candidate for dialysis at all. Extensive discussion with patient --her son and daughter also at bedside that given multiorgan failure and persistent shock, she will not tolerate HD. She might benefit from palliative evaluation and comfort measure approach. She is end stage by all account at this time Discussed case with ICU . palliative consult is pending. (2) Shock: Plan: combined septic and ?cardiac >> continue Levophed as needed. Defer to ICU (3) Sepsis: Plan: continue antibiotics renally dosed. +E coli septicemia Subjective Seen for BRY/HRS. She remains critically ill. She is complaining of SOB. She is oliguric despite iv lasix. Review of Systems Review of Systems: All other systems were reviewed and negative except as noted in HPI Physical Exam Physical Exam: General exam: Appears comfortable, no acute distress HEENT: deep jaundice Neck: No JVD, Respiratory system: Clear breath sounds bilaterally. Gastrointestinal: Abdomen is soft, non distended, non tender, bowel sounds are present CVS: Regular rate and rhythm. No murmurs, rubs or gallops Musculoskeletal: No joint or muscle tenderness Extremities: Non tender, no edema, peripheral pulses are present Neuro: Oriented, no tremors, no focal neurological deficits Skin: No rashes, deep jaundice Results & Data Vital Signs (Past 12 Hours) Vital Signs Temp Pulse Pulse Resp BP BP BP 07/18/25 10:02 36.3 C L 88 20 114/70 07/18/25 09:06 36.7 C 86 16 96/69 L 07/18/25 08:39 36.7 C 85 19 07/18/25 08:03 36.7 C 86 22 07/18/25 08:00 85 07/18/25 07:37 07/18/25 07:37 07/18/25 07:30 36.7 C 89 21 07/18/25 07:00 36.3 C L 83 17 07/18/25 06:36 36.8 C 84 18 102/67 07/18/25 06:00 36.9 C 85 16 82/57 L 07/18/25 05:33 36.9 C 86 17 104/67 07/18/25 05:00 36.9 C 86 17 81/65 L 07/18/25 04:30 97/65 L 07/18/25 04:06 36.6 C 86 16 96/55 L 07/18/25 03:36 36.3 C L 83 14 88/62 L 07/18/25 03:03 36.0 C L 80 15 90/62 L 07/18/25 02:30 36.1 C L 80 16 103/68 07/18/25 02:03 35.6 C L 77 21 94/62 L 07/18/25 01:36 35.7 C L 77 25 H 91/58 L 07/18/25 01:00 36.0 C L 77 24 84/62 L 07/18/25 00:31 69/55 L 07/18/25 00:00 36.0 C L 80 25 H 81/65 L 07/18/25 00:00 78 07/17/25 23:30 92/70 L 07/17/25 23:09 36.1 C L 82 15 114/84 07/17/25 22:30 93/68 L Pulse Ox Pulse Ox O2 Del Method O2 Del Method O2 Flow Rate O2 Flow Rate 07/18/25 10:02 92 Nasal Cannula 5 07/18/25 09:06 92 Nasal Cannula 5 07/18/25 08:39 92 07/18/25 08:03 92 07/18/25 08:00 07/18/25 07:37 Nasal Cannula 5 07/18/25 07:37 92 Nasal Cannula 5 07/18/25 07:30 90 07/18/25 07:00 07/18/25 06:36 93 Nasal Cannula 5 07/18/25 06:00 92 Nasal Cannula 5 07/18/25 05:33 91 Nasal Cannula 4 07/18/25 05:00 90 Nasal Cannula 4 07/18/25 04:30 07/18/25 04:06 90 Nasal Cannula 4 07/18/25 03:36 92 Nasal Cannula 4 07/18/25 03:03 94 Nasal Cannula 4 07/18/25 02:30 91 Nasal Cannula 4 07/18/25 02:03 93 Nasal Cannula 4 07/18/25 01:36 90 Nasal Cannula 4 07/18/25 01:00 93 Nasal Cannula 4 07/18/25 00:31 07/18/25 00:00 90 Nasal Cannula 4 07/18/25 00:00 07/17/25 23:30 07/17/25 23:09 92 Nasal Cannula 4 07/17/25 22:30
[2025-07-18 11:52] LABS: INR 1.5 (0.9-1.1); Prothrombin Time 15.6 Seconds (9.0-12.0)
--- NOTE | 2025-07-18 13:38 | Critical Care Progress Note ---
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 The patient has a complicated medical history. In November 2023 she was admitted with hypoxic respiratory failure thought to be secondary to cor pulmonale from pulmonary hypertension. She was transferred to [facility] for IV prostacyclin. The stent was thought to have possible autoimmune hepatitis and had positive ASMA antibody. She also was positive for AMA and TTG IgA concerning for celiac disease and autoimmune hepatitis. This patient was discharged from [facility] with sildenafil and macitentan for her pulmonary hypertension. She underwent liver biopsy in February 2024 which showed lobular and portal inflammation with areas of fibrosis. She was admitted to our facility in March 2025 with GI bleeding and at this time was transferred to [facility]. The patient underwent EGD and was found to have 1 esophageal varices and portal hypertensive gastropathy. The patient follows with [facility] gastroenterology. She was also reportedly seen at [facility] for possible liver transplant but told she did not need a liver transplant during that visit. The patient presented to our facility again on 07/13/2025 with symptoms of dysuria, hematuria, generalized weakness and shortness of breath. Of note she had been in the emergency department on 06/25/2025 with symptomatic anemia, hemoglobin was 5, she did not have active bleeding was transfused 2 units of PRBCs in the ER and discharged home. During her current visit the patient was found to be hypotensive and hypoxic. Lactic acid was elevated. UA was concerning for UTI. CT of the abdomen and pelvis did not show evidence of hydronephrosis however bilateral nephrolithiasis was appreciated. There was a 3.7 cm focus within the upper pole of the right kidney which possibly represented a focus of pyelonephritis. Striated bilateral nephrograms were appreciated. Cirrhotic appearing liver with evidence of portal hypertension, splenomegaly and moderate ascites. Moderate right and left pleural effusions were also appreciated. Cholelithiasis was appreciated. Due to hypotension a central venous catheter was placed. Chest x-ray showed good placement, minimal blunting of both costophrenic angles concerning for pleural effusions. The patient was admitted to the ICU for further care. Gastroenterology and nephrology were consulted. Blood cultures and urine cultures grew E. coli for which the patient is receiving Rocephin. The patient's urine output did not improve. Total bilirubin continues to rise. Total bilirubin continued to rise. She was trialed on Lasix without improvement, also given albumin. Continues to require vasopressor support. Reason Critically Ill: Septic shock E. coli bacteremia with E. coli UTI Pyelonephritis with possible renal abscess BRY on top of CKD Severe pulmonary hypertension Liver cirrhosis, possibly autoimmune versus secondary to pulmonary hypertension Elevated T bilirubin Acute blood loss anemia with history of GI bleeding Chronic thrombocytopenia Hepatic encephalopathy Neuro: Hepatic encephalopathy. Waxing and waning mentation. Continue lactulose. Goal is 4 loose bowel movements daily. Will repeat ammonia level. If worsening mentation will need ABG. Cardiac: Severe underlying pulmonary hypertension with valvular disturbance. Cor pulmonale. Patient was started back on sildenafil low-dose 20 mg 3 times daily. Minimal to no urine output after Lasix so this was discontinued. Remains in shock, likely septic shock given E. coli bacteremia and pyelonephritis. Continue norepinephrine. Continue sildenafil. Respiratory: Hypoxic respiratory failure, requiring 5 L of oxygen. Likely secondary to pulmonary hypertension and pulmonary vascular congestion with pleural effusion. May have a component of hepatopulmonary syndrome. Echo was done in the emergency department upon arrival to the hospital however was done without bubble study. GI: Underlying cirrhosis, T. bili Garett continues to rise. Hepatic encephalopathy is present. Continuing lactulose and rifaximin. Has a history of GI bleeding. No active bleeding during this hospital stay. Continue pantoprazole daily. Patient has been seen at [facility] and was told that she did not need a liver transplant. It is not clear if she would be a candidate for liver transplant given her multiorgan dysfunction including severe pulmonary hypertension and renal failure. RENAL/LYTES: BRY on CKD. Minimal urine output. Did not respond to Lasix and albumin. No significant hyperkalemia at this time. Nephrology is consulted. Possible renal abscess versus infarct appreciated on CT. Has pyelonephritis. : Delgado catheter is in place minimal urine output. ENDO: Blood sugar acceptable. Has been had minimal p.o. intake. Monitor glucose Q6. HEME: Anemia and thrombocytopenia. Hemoglobin is 7.4. No evidence of bleeding at this time. Platelets 44, no active bleeding appreciated at this time. Will continue to monitor with daily labs. ID: E. coli UTI and bacteremia. Likely secondary to pyelonephritis. Patient is on Rocephin 2 g daily. Will continue this. Repeat blood cultures are pending. Feeding: Minimal p.o. intake, has a diet ordered Fluids: No maintenance fluids Analgesia: None Activity: Bedrest Thromboprophylaxis: SCDs Ulcer prophylaxis: Pantoprazole Glycemic control: Blood glucose acceptable, monitor every 6. Bowels: Pantoprazole, lactulose Indwelling catheters: Delgado, central venous catheter Antibiotics: Rocephin Plan: Patient has remained in the ICU. She is critically ill with multiorgan dysfunction and failure. The patient has underlying severe pulmonary hypertension and liver cirrhosis. She also has chronic renal failure. He is in septic shock likely secondary to pyelonephritis with E. coli bacteremia and E. coli UTI. I had a long discussion with patient and family at bedside as well as patient's family privately. They are going to discuss goals of care and get back to me. I explained her critical illness and multiple organ dysfunction. I explained that she may not be a candidate for transplant given the severity of her pulmonary hypertension and overall poor condition. If family wants to continue to pursue critical care treatment then we will attempt to transfer the patient. I believe that she has uncontrolled sepsis given the possible renal abscess and pyelonephritis. She may need repeat imaging of the abdomen and pelvis. She also may require a percutaneous drain for the renal abscess as this is her source. I do not think that she would tolerate traditional dialysis, CRRT may be an option and this could be another reason for transfer. I am willing to speak with [facility] transplant team if the family is wanting me to, she supposedly had previously met with them in the past and they may know her case. Overall prognosis is very poor. Family seems to understand this. I will meet with them later today after they have had time to discuss their wishes. If they pursue comfort care I also think this is reasonable at this time. If that is the case we will let palliative care know. I have personally spent 60 minutes of critical care time in the direct management of this patient. This is a life/limb threatening event. This includes time spent evaluating patient, direct bedside care, chart review, placing orders, interpretation of diagnostic studies, discussion with consultants, patient, and family members, as well as other required patient management activities. This time is exclusive of all separately billable procedures, and teaching time and separate from and in addition to any other critical care service time. Admission and Anticipated Discharge Date Admission Date: July 13, 2025 Subjective Past 24-hour events: Remained on norepinephrine overnight. Minimal urine output. Oxygen requirement increasing. Did not respond to Lasix drip. Has been hypothermic. Required warming blanket last night. Mentation is waxing and waning. Rounding: Patient was oriented to person, place and situation. Slightly forgetful when I asked her about her medical history. Waxing waning mentation. On 5 L of oxygen. Levophed is still on. Lasix drip is off. Temperature is a little bit better this morning. Family was at bedside this afternoon (son, [id number] and daughter). The patient did tell me this morning when she was somewhat lucid that she would like her 2 children to make medical decisions for her if she could not. Intake: 1053 mL Output: 393 mL Net: +660 mL Mechanical ventilation: On nasal cannula, 5 L Feeding: Minimal p.o. intake IV infusions: Norepinephrine Indwelling catheters: Delgado catheter, central venous catheter Laboratory: CBC: WBC 10.7, hemoglobin 7.4, platelet 44 Coags: PT 15.6, INR 1.5 Chemistry: Sodium 136, potassium 4.0, chloride 105, bicarb 17, anion gap 14, BUN 82, creatinine 2.51, glucose 121, calcium 9.1, phosphorus 6.0, AST 104, ALT 57, alk phos 129, total bilirubin 22.1 ABG: None Review of Systems Review of Systems: Denies abdominal pain. Denies nausea. Denies headache. Physical Exam Physical Exam: Physical examination: General: Chronically ill-appearing, resting in bed, visibly jaundiced. HEENT: JVD appreciated. Sclera are icteric. Skin: Warm extremities. Some edema is present in the lower extremities. Cardiovascular: Heart is a regular rate and rhythm, no murmurs appreciated on my exam. JVD appreciated. Edema of lower extremities. Lungs: Crackles at bases. No wheezing. On 5 L via nasal cannula. Abdomen: Nontender to palpation. No masses appreciated. No pain to percussion of costophrenic angles. Musculoskeletal: Normal muscle mass and tone. Neurologic: Awake and alert. Falls asleep easily. Waxing and waning mentation. Speech is fluent. Forgetful at times. Moving all extremities. Psychiatric: Appropriate cooperative during my exam. Results & Data Results & Data Vital Signs (Past 12 Hours) Vital Signs Temp Pulse Pulse Resp BP BP BP 07/18/25 12:16 36.6 C 86 21 97/55 L 07/18/25 11:31 36.7 C 85 17 100/65 07/18/25 10:02 36.3 C L 88 20 114/70 07/18/25 09:06 36.7 C 86 16 96/69 L 07/18/25 08:39 36.7 C 85 19 07/18/25 08:03 36.7 C 86 22 07/18/25 08:00 85 07/18/25 07:37 07/18/25 07:37 07/18/25 07:30 36.7 C 89 21 07/18/25 07:00 36.3 C L 83 17 07/18/25 06:36 36.8 C 84 18 102/67 07/18/25 06:00 36.9 C 85 16 82/57 L 07/18/25 05:33 36.9 C 86 17 104/67 07/18/25 05:00 36.9 C 86 17 81/65 L 07/18/25 04:30 97/65 L 07/18/25 04:06 36.6 C 86 16 96/55 L 07/18/25 03:36 36.3 C L 83 14 88/62 L 07/18/25 03:03 36.0 C L 80 15 90/62 L 07/18/25 02:30 36.1 C L 80 16 103/68 07/18/25 02:03 35.6 C L 77 21 94/62 L 07/18/25 01:36 35.7 C L 77 25 H 91/58 L Pulse Ox Pulse Ox O2 Del Method O2 Del Method O2 Flow Rate O2 Flow Rate 07/18/25 12:16 92 Nasal Cannula 5 07/18/25 11:31 91 Nasal Cannula 5 07/18/25 10:02 92 Nasal Cannula 5 07/18/25 09:06 92 Nasal Cannula 5 07/18/25 08:39 92 07/18/25 08:03 92 07/18/25 08:00 07/18/25 07:37 Nasal Cannula 5 07/18/25 07:37 92 Nasal Cannula 5 07/18/25 07:30 90 07/18/25 07:00 07/18/25 06:36 93 Nasal Cannula 5 07/18/25 06:00 92 Nasal Cannula 5 07/18/25 05:33 91 Nasal Cannula 4 07/18/25 05:00 90 Nasal Cannula 4 07/18/25 04:30 07/18/25 04:06 90 Nasal Cannula 4 07/18/25 03:36 92 Nasal Cannula 4 07/18/25 03:03 94 Nasal Cannula 4 07/18/25 02:30 91 Nasal Cannula 4 07/18/25 02:03 93 Nasal Cannula 4 07/18/25 01:36 90 Nasal Cannula 4 [place] [address] CRITICAL CARE 1ST 30-74M Patient Type Established History Comprehensive Exam Comprehensive Medical Decision Making High Complexity Diagnoses Pulmonary arterial hypertension associated with portal hypertension I27.21; K76.6 Septic shock A41.9; R65.21 Pyelonephritis N12 Acute renal failure, unspecified acute renal failure type N17.9 Acute renal failure type: unspecified Hepatic encephalopathy K76.82 Acute blood loss anemia D62 Thrombocytopenia D69.6 (4) Acute renal failure Acute renal failure type: unspecified Qualified Code(s): N17.9 - Acute kidney failure, unspecified
--- NOTE | 2025-07-18 15:18 | Hospitalist Progress Note ---
Date of Service July 18, 2025 Assessment & Plan (1) Severe sepsis: Plan: Septic shock Acute pyelonephritis E. coli bacteremia Suspected developing renal abscess Lactic acidosis--chronic likely multifactorial due to infection, hepatorenal failure --CT ABD: New 3 cm area of altered enhancement in the upper right kidney, most likely due to pyelonephritis. Apparent mild wall thickening of the right renal pelvis, which may also be due to infection. Bilateral renal calculi and left renal cysts. Cirrhosis and portal hypertension. Splenomegaly Small to moderate amount of ascites. Small hepatic cysts . Cholelithiasis without evidence of acute cholecystitis . Unchanged foreign body within the gastric lumen. Apparent mild colonic wall thickening. This could be due to secondary edema from hypoalbuminemia, though infectious colitis or inflammatory bowel disease is also possible --Repeat CT abdomen: Nephrolithiasis, 3.7 cm hypoenhancing focus within the upper pole of the right kidney with decreased enhancement since prior CT. This could represent a focus of pyelonephritis. A developing renal abscess or renal infarct are within the differential. Cirrhotic liver with manifestations of portal hypertension including splenomegaly, moderate ascites and varices formation. Moderate right and small left pleural effusions, increased in size since prior exam. Cholelithiasis. --Blood Cultures:12/17: Growing E. coli --Repeat blood cultures negative to date --Urine culture: E. 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 Dorado on discharge Avoid hepatotoxic agents as able Also started on rifaximin Hepatic function continues to worsen Possible Hepatorenal syndrome Hold Lasix Avoid hepatotoxic agents as able Sildenafil on hold due to hypotension Oliguria Appreciate nephrology input Plan to be started on IV albumin, Lasix Monitor I's and O's Poor candidate for dialysis per nephrology Palliative care consulted to address goals of care Troponin elevation Likely due to renal dysfunction/sepsis Denies any chest pain Echo showed no wall motion abnormality Severe pulmonary hypertension Severe tricuspid regurgitation --ECHO: Right ventricle severely dilated. Right ventricle systolic function is moderately reduced. Right atrium severely dilated. Left ventricular cavity is small. EF 65 to 70%. Flattened septum consistent with RV pressure/volume overload. Severe tricuspid regurgitation. Severe pulmonary hypertension is present. Compared to prior study, no significant change. --Resume sildenafil Hyperglycemia HbA1c unreliable due to significant anemia Insulin sliding scale for now Monitor blood glucose levels Acute hypoxemic respiratory failure Nocturnal hypoxemia CTA showed no PE. Small bilateral pleural effusions, atelectasis. Requiring 5 L supplemental oxygen to maintain saturation Poor response to IV Lasix Chronic pancytopenia secondary to liver disease Anemia of chronic disease --S/P 1 unit PRBCs Monitor H&H and transfuse as needed Anemia workup reviewed Currently denies any bleeding issues Monitor CBC Vitamin D deficiency Started on vitamin D supplements Prolonged QTc Avoid QTc prolonging meds Monitor Ambulatory dysfunction Bedbound at baseline per patient Past tobacco abuse As per records Metallic foreign body gastric lumen on CT scan Thought to be metallic clip Also documented on prior imaging, records DVT Px: SCDs Re: Thrombocytopenia, history of GI bleed CODE STATUS Full code Disposition PT OT prior to discharge Poor prognosis Admission and Anticipated Discharge Date Admission Date: July 13, 2025 Subjective Patient is seen and examined at bedside States having some right shoulder pain Very poor oral intake Remains on pressors Discussed with patient's family at bedside Poor prognosis Palliative care following as well Requiring 5 L supplemental oxygen to maintain saturation Poor response to IV diuretics Review of Systems Review of Systems: All systems reviewed & are unremarkable except as noted in Subjective Physical Exam Physical Exam: Physical Exam: Vitals signs as noted above General Appearance:Moderately built and nourished, no apparent distress, frail, chronic ill appearing Head: normocephalic, Atraumatic Eyes: normal inspection, EOMI Neck: supple, Trachea midline Respiratory/Chest: Decreased breath sounds, basal crackles, No accessory muscle use Cardiovascular: S1, S2, + murmur Abdomen/GI:Soft, mildly distended, Non tender, Bowel sounds present Extremities/Musculoskeletal:normal inspection, Trace edema Neurologic/Psych:AAOX3, grossly no focal neurological deficits Skin: normal color, warm,+Jaundice Results & Data Results & Data Vital Signs (Past 12 Hours) Vital Signs Temp Pulse Pulse Resp BP BP BP 07/18/25 14:03 36.9 C 85 18 87/58 L 07/18/25 13:30 36.9 C 86 18 07/18/25 13:19 36.5 C 90 21 98/65 L 07/18/25 13:09 36.7 C 91 H 22 07/18/25 12:30 36.7 C 85 17 07/18/25 12:16 36.6 C 86 21 97/55 L 07/18/25 12:00 36.2 C L 86 18 07/18/25 11:39 36.3 C L 84 18 07/18/25 11:31 36.7 C 85 17 100/65 07/18/25 11:03 36.5 C 87 17 07/18/25 10:30 36.7 C 86 18 07/18/25 10:09 36.7 C 87 19 07/18/25 10:02 36.3 C L 88 20 114/70 07/18/25 09:42 36.7 C 86 19 07/18/25 09:06 36.7 C 86 16 96/69 L 07/18/25 08:39 36.7 C 85 19 07/18/25 08:03 36.7 C 86 22 07/18/25 08:00 85 07/18/25 07:37 07/18/25 07:37 07/18/25 07:30 36.7 C 89 21 07/18/25 07:00 36.3 C L 83 17 07/18/25 06:36 36.8 C 84 18 102/67 07/18/25 06:00 36.9 C 85 16 82/57 L 07/18/25 05:33 36.9 C 86 17 104/67 07/18/25 05:00 36.9 C 86 17 81/65 L 07/18/25 04:30 97/65 L 07/18/25 04:06 36.6 C 86 16 96/55 L 07/18/25 03:36 36.3 C L 83 14 88/62 L Pulse Ox Pulse Ox O2 Del Method O2 Del Method O2 Flow Rate O2 Flow Rate 07/18/25 14:03 92 07/18/25 13:30 90 07/18/25 13:19 93 Nasal Cannula 5 07/18/25 13:09 92 07/18/25 12:30 89 L 07/18/25 12:16 92 Nasal Cannula 5 07/18/25 12:00 90 07/18/25 11:39 91 07/18/25 11:31 91 Nasal Cannula 5 07/18/25 11:03 93 07/18/25 10:30 92 07/18/25 10:09 92 07/18/25 10:02 92 Nasal Cannula 5 07/18/25 09:42 93 07/18/25 09:06 92 Nasal Cannula 5 07/18/25 08:39 92 07/18/25 08:03 92 07/18/25 08:00 07/18/25 07:37 Nasal Cannula 5 07/18/25 07:37 92 Nasal Cannula 5 07/18/25 07:30 90 07/18/25 07:00 07/18/25 06:36 93 Nasal Cannula 5 07/18/25 06:00 92 Nasal Cannula 5 07/18/25 05:33 91 Nasal Cannula 4 07/18/25 05:00 90 Nasal Cannula 4 07/18/25 04:30 07/18/25 04:06 90 Nasal Cannula 4 07/18/25 03:36 92 Nasal Cannula 4 Laboratory Results Short CBC 07/18/25 Range/Units 05:08 WBC 10.73 (4.8-10.8) K/ul Hgb 7.4 L (12.0-16.0) g/dl Hct 23.8 L (37.0-47.0) % Plt Count 44 L (130-400) K/uL BMP 07/18/25 05:08 Sodium 136 Potassium 4.0 Chloride 105 Carbon Dioxide 17 L BUN 82 H Creatinine 2.51 H D Glucose 121 H Calcium 9.1 Liver Function 07/18/25 Range/Units 05:08 Total Bilirubin 22.1 H (0.2-1.0) mg/dl AST 104 H (13-39) U/L ALT 57 H (7-52) U/L Alkaline Phosphatase 129 H (34-104) U/L Albumin 4.0 (3.4-5.0) gm/dl
--- NOTE | 2025-07-18 16:29 | Communication Note ---
Date of Service: July 18, 2025 Had a long discussion with the family. They want to continue full support and would like to pursue transfer to [facility] if possible. I have reached out to the transfer center and am waiting on a call. Patient's ammonia came back at 66, she has had multiple liquid bowel movements today. Waxing and waning mentation. I do not think it is safe for her to have a regular diet. Make n.p.o. and okay to have sips and chips. Will recheck a lactic and Pro-Rick. The family do not want the patient to be a full code at this time, I discussed that DNR would mean no CPR and no defibrillation. They are agreeable to this. I also discussed intubation. They would not want her to be placed on mechanical ventilation. She was placed DNR/DNI in the chart. Awaiting call from transfer center. Patient has made some urine output but still may require dialysis in the future. Remains on Levophed. Possible need for nephrostomy tube for renal abscess. Coding Level of Care Code None
--- NOTE | 2025-07-18 17:57 | Discharge Summary ---
Date of Service July 18, 2025 Admission HPI Per Admitting Provider History obtained from patient and records. 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 Last [facility] confinement March 2025 for UGIB. Patient transferred to [facility] for further evaluation. EGD at facility showed grade 1 esophageal varices and portal hypertensive gastropathy. Recent ER visit 2 weeks ago for symptomatic anemia without obvious bleed at home. Hemoglobin 5 at time of consultation. Patient transfused 2 units PRBC at the ER. 1 week history of dysuria symptoms with 1 episode of hematuria. Denies abdominal or flank pain. Poor appetite. Generalized weakness. Shortness of breath from being weak. Denies chest pain, cough, or fluid retention. Denies abdominal or flank pain. Patient compliant with home medications. SBP 90s upon arrival at the ER. Lowest O2 sats of 80s documented at the ER. Zosyn administered at the ER. Medical History as above Surgical History : D&C, BTL Family History : DM, dementia, asthma, thyroid disease, stroke, heart disease Personal/Social history : Past tobacco abuse, no EtOH intake, prior [employer] employment Admission Exam Per Admitting Provider GENERAL: Slightly uncomfortable, no respiratory distress SKIN: Normal color, warm HEENT: Pale palpebral conjunctivae, no ptosis, dry buccal mucosa, nasal cannula in place NECK : Supple, no tenderness CHEST : Decreased breath sounds, no tenderness HEART : Tachycardic, no obvious murmurs ABDOMEN: Some distention, nontender EXTREMITIES : Minimal LE swelling, no LE tenderness, palpable pulses, no other conspicuous deformities noted NEUROLOGIC : Coherent, no facial asymmetry, no other gross focality Principal Diagnosis Septic shock Acute pyelonephritis E. coli bacteremia Renal abscess Decompensated cirrhosis Hepatic encephalopathy Hepatorenal syndrome Severe pulmonary hypertension Acute respiratory failure with hypoxia Pancytopenia Vitamin D deficiency Discharge Data Allergies Allergy/AdvReac Type Severity Reaction Status Date / Time gluten Allergy Unknown Unknown Verified 07/13/25 21:48 Consultations 07/13/25 19:21 ED Decision to Admit Stat 07/13/25 21:48 Consult Gastroenterology Routine 07/14/25 15:25 Consult Nephrology Routine 07/14/25 22:41 Consult Supervisor Cured Meats Routine 07/18/25 17:45 Burn CD for patient Stat Procedures Performed Laboratory Results WBC 10.73 K/ul (4.8-10.8) 07/18/25 05:08 RBC 2.29 M/uL (4.20-5.40) L 07/18/25 05:08 Hgb 7.4 g/dl (12.0-16.0) L 07/18/25 05:08 POC Hgb 10.9 g/dl (12.0-16.0) L 07/15/25 00:28 Hct 23.8 % (37.0-47.0) L 07/18/25 05:08 POC Hct 32 % (37-47) L 07/15/25 00:28 MCV 103.9 fL (80.0-100.0) H 07/18/25 05:08 MCH 32.3 pg (25.0-34.0) 07/18/25 05:08 MCHC 31.1 g/dL (32.0-36.0) L 07/18/25 05:08 RDW Std Deviation 89.8 fL (36.4-46.3) H 07/18/25 05:08 RDW Coeff of Dalia 24.5 % (11.5-14.5) H 07/18/25 05:08 Plt Count 44 K/uL (130-400) L 07/18/25 05:08 MPV 9.9 fL (9.4-12.4) 07/15/25 05:00 Immature Gran % (Auto) 1.4 % 07/14/25 08:19 Neut % (Auto) 84.6 % 07/14/25 08:19 Lymph % (Auto) 9.0 % 07/14/25 08:19 Young % (Auto) 4.6 % 07/14/25 08:19 Eos % (Auto) 0.3 % 07/14/25 08:19 Baso % (Auto) 0.1 % 07/14/25 08:19 Neut # (Auto) 5.90 K/uL (1.40-6.50) 07/14/25 08:19 Lymph # (Auto) 0.63 K/uL (1.20-3.40) L 07/14/25 08:19 Young # (Auto) 0.32 K/uL (0.11-0.59) 07/14/25 08:19 Eos # (Auto) 0.02 K/uL (0.00-0.50) 07/14/25 08:19 Baso # (Auto) 0.01 K/uL (0.00-0.20) 07/14/25 08:19 Immature Gran # (Auto) 0.10 K/uL (0.01-0.20) 07/14/25 08:19 Absolute Nucleated RBC 0.85 K/uL (0.00-0.12) H 07/18/25 05:08 Nucleated RBC % (auto) 7.9 % 07/18/25 05:08 Platelet Estimate Decreased (Normal) L 07/18/25 05:08 Polychromasia 3+ 07/14/25 08:19 Anisocytosis Present 07/14/25 08:19 Tear Drop Cells 1+ 07/13/25 17:03 Ovalocytes 1+ 07/13/25 17:03 PT 15.6 Seconds (9.0-12.0) H 07/18/25 10:39 INR 1.5 (0.9-1.1) H 07/18/25 10:39 APTT 38 Seconds (21-31) H 07/13/25 17:03 PTT Ratio 1.4 07/13/25 17:03 Specimen Type FIONA 07/15/25 00:28 Sample Site R Radial 07/15/25 00:28 POC pH 7.37 (7.35-7.45) 07/15/25 00:28 POC pCO2 23 mmHg (35-46) L 07/15/25 00:28 POC pO2 32 mmHg (80-95) L 07/15/25 00:28 POC HCO3 13 mmol/L (19-24) L 07/15/25 00:28 POC Total CO2 14 mmol/L (24-31) L 07/15/25 00:28 POC Base Excess -12.0 mmol/L (-9-1.8) L 07/15/25 00:28 O2 Sat Pulse Oximetry 94 07/15/25 00:28 ABG pH (Temp Correct) 7.375 (7.35-7.45) 07/15/25 00:28 ABG pCO2 (Temp Corrct 23 mmHg (35-46) L 07/15/25 00:28 POC ABG pO2 at Pt Temp 31 07/15/25 00:28 POC ABG O2 Sat 62.0 % (90-95) L 07/15/25 00:28 Keshav Test NA 07/15/25 00:28 VBG pH 7.39 (7.36-7.41) 07/13/25 17:03 VBG pCO2 27 mmHg (38-50) L 07/13/25 17:03 VBG pO2 28 mmHg 07/13/25 17:03 VBG HCO3 16 mmol/L 07/13/25 17:03 VBG O2 Saturation < 60.0 % 07/13/25 17:03 VBG Base Excess -7.1 mEq/L 07/13/25 17:03 O2 Delivery Device Room Air 07/15/25 00:28 POC Sodium 138 mmol/L (135-144) 07/15/25 00:28 Sodium 136 mmol/L (136-145) 07/18/25 05:08 POC Potassium 3.8 mmol/L (3.3-5.0) 07/15/25 00:28 Potassium 4.0 mmol/L (3.5-5.1) 07/18/25 05:08 POC Chloride 106 mmol/L (101-112) 07/13/25 17:10 Chloride 105 mmol/L (98-107) 07/18/25 05:08 Carbon Dioxide 17 mmol/L (21-32) L 07/18/25 05:08 POC Total CO2 17 mmol/L (24-31) L 07/13/25 17:10 Anion Gap 14 (3-11) H 07/18/25 05:08 POC Anion Gap 18.0 mmol/L (16-25) 07/13/25 17:10 POC BUN 30 mg/dl (7-18) H 07/13/25 17:10 BUN 82 mg/dl (6-23) H 07/18/25 05:08 Creatinine 2.51 mg/dl (0.6-1.2) H D 07/18/25 05:08 POC Creatinine 1.7 mg/dl (0.6-1.3) H 07/13/25 17:10 Est Cr Clr Drug Dosing 24.4 ml/min 07/18/25 05:08 eGFR 21.11 07/18/25 05:08 BUN/Creatinine Ratio 32.7 (10-20) H 07/18/25 05:08 Glucose 121 mg/dl (70-99(Fasting)) H 07/18/25 05:08 POC Glucose 131 mg/dl (70-99) H 07/18/25 16:04 POC Glucose (other) 138 mg/dl (70-99) H 07/17/25 20:41 Estimat Average Glucose Cancelled 07/14/25 08:[address] Glu mmol/L DNR mmol/L 07/14/25 08:[address] Glu mg/dL SEE NOTE mg/dL 07/14/25 08:19 Hemoglobin A1c <4.2 % (<5.7) 07/14/25 08:19 Hemoglobin A1c Cancelled 07/14/25 08:19 Lactate 1.9 mmol/L (0.4-2.0) 07/18/25 16:28 Calcium 9.1 mg/dl (8.6-10.3) 07/18/25 05:08 POC Ioniz Calcium Bhavesh 1.09 mmol/l (1.12-1.32) L 07/13/25 17:10 Ionized Calcium 1.12 mmol/L (1.12-1.32) 07/15/25 08:38 Phosphorus 6.0 mg/dl (2.5-4.9) H 07/18/25 05:08 Magnesium 2.9 mg/dl (1.7-2.4) H 07/17/25 04:48 Iron 108 mcg/dl (35-150) 07/15/25 08:38 TIBC TNP 07/15/25 08:38 Transferrin < 95 mg/dl (200-360) L 07/15/25 08:38 Transferrin % Sat TNP 07/15/25 08:38 Total Bilirubin 22.1 mg/dl (0.2-1.0) H 07/18/25 05:08 Direct Bilirubin 6.9 mg/dl (0-0.2) H 07/14/25 08:19 AST 104 U/L (13-39) H 07/18/25 05:08 ALT 57 U/L (7-52) H 07/18/25 05:08 Alkaline Phosphatase 129 U/L (34-104) H 07/18/25 05:08 Ammonia 66.0 umol/L (18-72) 07/18/25 14:27 Lactate Dehydrogenase 281 U/L (86-244) H 07/18/25 10:42 Total Creatine Kinase 34 U/L (26-192) 07/13/25 18:51 Troponin I High Sens 320.9 pg/ml (0-14) H* 07/13/25 18:51 B-Natriuretic Peptide > 4700 pg/ml (0-100) H 07/17/25 07:02 Total Protein 7.0 gm/dl (6.0-8.3) 07/18/25 05:08 Albumin 4.0 gm/dl (3.4-5.0) 07/18/25 05:08 Globulin 3.0 gm/dl (2.5-4.0) 07/18/25 05:08 Albumin/Globulin Ratio 1.3 (0.9-2) 07/18/25 05:08 Vitamin B12 686 pg/ml (180-914) 07/15/25 08:38 25-OH Vitamin D Total 22.9 ng/ml (30-100) L 07/15/25 08:38 Folate > 22.30 ng/ml (>5.38) 07/15/25 08:38 Procalcitonin 2.98 ng/ml (0-0.5) H 07/18/25 16:28 Random Cortisol 50.06 mcg/dl 07/14/25 23:00 Urine Color Dark Yellow 07/13/25 22:10 Urine Appearance Cloudy (Clear) A 07/13/25 22:10 Urine pH 5.5 (4.5-7.5) 07/13/25 22:10 Ur Specific [place] > 1.045 (1.000-1.030) H 07/13/25 22:10 Urine Protein 2+ (Negative) H 07/13/25 22:10 Urine Glucose (UA) Negative (Negative) 07/13/25 22:10 Urine Ketones Negative (Negative) 07/13/25 22:10 Urine Blood 2+ (Negative) H 07/13/25 22:10 Urine Nitrite Negative (Negative) 07/13/25 22:10 Urine Bilirubin 2+ (Negative) H 07/13/25 22:10 Urine Urobilinogen Negative (Negative) 07/13/25 22:10 Ur Leukocyte Esterase 2+ (Negative) H 07/13/25 22:10 Urine WBC (Auto) >50 /hpf (0-5) H 07/13/25 22:10 Urine RBC (Auto) 6-10 /hpf (0-2) H 07/13/25 22:10 U Hyaline Cast (Auto) 6-10 /lpf (0-2) H 07/13/25 22:10 U Epithel Cells (Auto) 0-2 /hpf (0-2) 07/13/25 22:10 Urine Bacteria (Auto) 3+ (None Seen) H 07/13/25 22:10 Hyaline Casts Present /lpf (None Presnt) A 07/13/25 22:10 Granular Casts Present /lpf (None Prsent) A 07/13/25 22:10 Urine Mucus Present (None Prsent) A 07/13/25 22:10 Ur Random Creatinine 128.7 mg/dl 07/15/25 09:07 U Random Total Protein 95.7 mg/dl (0-11.9) H 07/15/25 09:07 Ur Random Sodium < 10 mmol/L 07/15/25 09:07 Urine Comment 07/13/25 22:10 Nasal Screen MRSA (PCR) Negative (Negative) 07/14/25 23:54 SARS-CoV-2 (PCR) NEGATIVE (Negative) 07/13/25 17:30 Enterobacterales (PCR) DETECTED (NotDetected) A 07/13/25 17:03 E. coli (PCR) DETECTED (NotDetected) A 07/13/25 17:03 Influenza Type A (PCR) Negative (Neg) 07/13/25 17:30 Influenza Type B (PCR) Negative (Neg) 07/13/25 17:30 RSV (RT-PCR) Negative (Neg) 07/13/25 17:30 mcr-1 Colistin Res Gene PCR Not Detected (NotDetected) 07/13/25 17:03 blaIMP Car res Gene PCR Not Detected (NotDetected) 07/13/25 17:03 KPC-Carbap Res Gene PCR Not Detected (NotDetected) 07/13/25 17:03 blaNDM Car Res Gene PCR Not Detected (NotDetected) 07/13/25 17:03 OXA-48 Carbapenem Resis Gene (PCR) Not Detected (NotDetected) 07/13/25 17:03 blaVIM Car Res Gene PCR Not Detected (NotDetected) 07/13/25 17:03 CTX-M Gene Resistance (PCR) Not Detected (NotDetected) 07/13/25 17:03 Bld Cult ID Panel PCR See PCR Comment (NotDetected) 07/13/25 17:03 Blood Type B Positive 07/15/25 05:00 Antibody Screen NEGATIVE 07/15/25 05:00 Crossmatch See Detail 07/15/25 05:00 Impressions Chest CTA 07/13/25 17:22 Clinical history: Weakness and shortness of breath Technique: Axial computed tomography images were obtained of the chest after the administration of intravenous contrast according to the CT angiogram protocol Comparison is made to the prior CT dated 12/10/2023 Findings: There is no definite sign of pulmonary embolism. There is bilateral lower lobe atelectasis. There is no pneumothorax. There are new small bilateral pleural effusions. No endobronchial lesion is seen There is no mediastinal, hilar, or axillary adenopathy. The thoracic aorta appears unremarkable with no sign of aneurysm or dissection. There is no pericardial effusion. There is coronary atherosclerosis No fracture is seen. No focal osseous lesion is evident Impression: 1. No definite sign of pulmonary embolism 2. Small bilateral pleural effusions and bilateral lower lobe atelectasis 3. Coronary atherosclerosis Electronically signed by Kaiden Greenberg 07-13-2025 7:[address] 07/13/25 17:22 Technique: Axial computed tomography images were obtained of the brain from the vertex to the skull base without intravenous contrast. Findings: There is no sign of intracranial hemorrhage. There is normal villavicencio-white matter differentiation with no sign of acute or old infarction. No midline shift or other form of herniation is identified. There is no hydrocephalus. No obvious mass lesion is seen on this noncontrast examination. The visualized portions of the orbits and paranasal sinuses appear unremarkable. The mastoid air cells appear clear Impression: Unremarkable noncontrast CT of the brain Electronically signed by Kaiden Greenberg 07-13-2025 7:07 PM Abdomen/Pelvis CT 07/15/25 12:48 CT OF THE ABDOMEN AND PELVIS WITHOUT CONTRAST CLINICAL HISTORY: Reassess for possible ureteral stones/obstruction COMPARISON STUDY: CT of the abdomen and pelvis July 13, 2025. TECHNIQUE: Axial images of the abdomen and pelvis were obtained without IV contrast. Images were reviewed in the axial, sagittal, and coronal planes. Automated exposure control was utilized for the study. A dose lowering technique was utilized adhering to the principles of ALARA. FINDINGS: Moderate right and small left pleural effusions have increased in size since CT of July 13, 2025. Subpleural right lower lobe opacity favors atelectasis. No pneumatosis, free air or portal venous gas is present. Evaluation of the abdomen and pelvis is suboptimal on this unenhanced exam. The liver is cirrhotic appearing. Splenomegaly and moderate ascites are again noted. These appear similar to CT of July 13, 2025. No hepatic lesions are identified on this unenhanced examination. There are gallstones within the ga llbladder. Gallbladder is not distended. Adrenal glands and pancreas are unremarkable. Evaluation for urinary calculi is suboptimal given excreted contrast. This represents delayed excretion of contrast. The nephrograms are heterogeneous. There are findings suggestive of striated nephrogram is. A 3.7 cm hypoenhancing focus within the upper pole of the right kidney is again noted. Enhancement is decreased when compared to prior exam. Left renal cysts are noted. Delgado balloon and contrast within the bladder are noted. There is a small amount of gas within the bladder. There is no evidence for a bowel obstruction. Retroperitoneal collaterals are again noted. IMPRESSION: 1. No hydronephrosis. No definite ureteral calculi although sensitivity diminished given excreted contrast. Delayed renal excretion of contrast suggests underlying renal insufficiency. Bilateral nephrolithiasis. 2. 3.7 cm hypoenhancing focus within the upper pole of the right kidney with decreased enhancement since prior CT. This could represent a focus of pyelonephritis. A developing renal abscess or renal infarct are within the differential. Short-term follow-up CT is suggested. 3. Striated bilateral nephrograms. This is nonspecific but may represent pyelonephritis. 4. Cirrhotic liver with manifestations of portal hypertension including splenomegaly, moderate ascites and varices formation. 5. Moderate right and small left pleural effusions, increased in size since prior exam. 6. Cholelithiasis. ACT 112: Negative or not required by law. Electronically signed by: Que Hutchinson M.D. 07/15/2025 3:04 PM Chest X-Ray 07/16/25 16:33 EXAM: Radiograph of the Chest 1 View INDICATION: Hypoxia TECHNIQUE: Frontal and lateral views obtained. COMPARISON: 07/15/2025 FINDINGS: Lungs and pleural spaces: Increased patchy airspace disease in both lung bases. Stable very small bilateral pleural effusions and pulmonary vascular congestion. No pneumothorax. Heart: Stable large cardiac shadow. Mediastinum: Normal contour. Bones/joints: No fracture, erosion or dislocation. Soft tissues: No abnormality noted. No radiopaque foreign body noted. Tubes, lines and devices: Insert right internal jugular central venous catheter tip in the distal superior vena cava. Upper abdomen: No abnormality noted. IMPRESSION: CHF with new patchy bilateral basilar atelectasis or developing pneumonia. ACT 112: N/A Electronically signed by Radha Chappell 07-16-2025 6:53 PM Ordered Studies 07/13/25 17:22 CT abd pelvis IV con only Stat CT angio chest PE protocol Stat CT head/brain wo con Stat 07/15/25 12:48 CT Abdomen and Pelvis [CT abd pelvis wo con] Stat Hospital Course (1) Severe sepsis: Septic shock Acute pyelonephritis E. coli bacteremia Suspected developing renal abscess Lactic acidosis--chronic likely multifactorial due to infection, hepatorenal failure --CT ABD: New 3 cm area of altered enhancement in the upper right kidney, most likely due to pyelonephritis. Apparent mild wall thickening of the right renal pelvis, which may also be due to infection. Bilateral renal calculi and left renal cysts. Cirrhosis and portal hypertension. Splenomegaly Small to moderate amount of ascites. Small hepatic cysts . Cholelithiasis without evidence of acute cholecystitis . Unchanged foreign body within the gastric lumen. Apparent mild colonic wall thickening. This could be due to secondary edema from hypoalbuminemia, though infectious colitis or inflammatory bowel disease is also possible --Repeat CT abdomen: Nephrolithiasis, 3.7 cm hypoenhancing focus within the upper pole of the right kidney with decreased enhancement since prior CT. This could represent a focus of pyelonephritis. A developing renal abscess or renal infarct are within the differential. Cirrhotic liver with manifestations of portal hypertension including splenomegaly, moderate ascites and varices formation. Moderate right and small left pleural effusions, increased in size since prior exam. Cholelithiasis. --Blood Cultures:12/17: Growing E. coli --Repeat blood cultures negative to date --Urine culture: E. coli Continue IV Rocephin Received IV fluids Continues to require pressors Appreciate radar air traffic controller help Poor prognosis Palliative care involved Decompensated cirrhosis/Hepatic encephalopathy--POA H/O MAFLD Elevated ammonia levels CT scan as above Monitor MELD score Continue lactulose to titrate to 3-4 good bowel movements per day Low-sodium diet Appreciate GI input Needs follow-up with hepatology Dr. Dorado on discharge Avoid hepatotoxic agents as able Also started on rifaximin Hepatic function continues to worsen Possible Hepatorenal syndrome Hold Lasix Avoid hepatotoxic agents as able Sildenafil on hold due to hypotension Oliguria Appreciate nephrology input Plan to be started on IV albumin, Lasix Monitor I's and O's Poor candidate for dialysis per nephrology Palliative care consulted to address goals of care Troponin elevation Likely due to renal dysfunction/sepsis Denies any chest pain Echo showed no wall motion abnormality Severe pulmonary hypertension Severe tricuspid regurgitation --ECHO: Right ventricle severely dilated. Right ventricle systolic function is moderately reduced. Right atrium severely dilated. Left ventricular cavity is small. EF 65 to 70%. Flattened septum consistent with RV pressure/volume overload. Severe tricuspid regurgitation. Severe pulmonary hypertension is present. Compared to prior study, no significant change. --Resume sildenafil Hyperglycemia HbA1c unreliable due to significant anemia Insulin sliding scale for now Monitor blood glucose levels Acute hypoxemic respiratory failure Nocturnal hypoxemia CTA showed no PE. Small bilateral pleural effusions, atelectasis. Requiring 5 L supplemental oxygen to maintain saturation Poor response to IV Lasix Chronic pancytopenia secondary to liver disease Anemia of chronic disease --S/P 1 unit PRBCs Monitor H&H and transfuse as needed Anemia workup reviewed Currently denies any bleeding issues Monitor CBC Vitamin D deficiency Started on vitamin D supplements Prolonged QTc Avoid QTc prolonging meds Monitor Ambulatory dysfunction Bedbound at baseline per patient Past tobacco abuse As per records Metallic foreign body gastric lumen on CT scan Thought to be metallic clip Also documented on prior imaging, records DVT Px: SCDs Re: Thrombocytopenia, history of GI bleed CODE STATUS DNI DNR--ICU team discussed with patient and patient's family who agrees Disposition [facility] After long discussion by ICU team with patient's family, patient was thought to be better served at a tertiary care facility. Given need for possible CRRT, nephrostomy tube placement for renal abscess, access to evaluation by transplant team patient will be transferred to [facility] for further management. Dr.Tomeka Montoya at [facility] kindly accepted the patient for further management. Patient was informed and agrees with the plan. Informed patient's Daughter (Jeaneth) over the phone who understands and agrees with the plan. Also tried to call patient's Son multiple times..couldn't reach. Patient's daughter plans to inform her brother. Total Time Total Time Spent Total Time Spent (In Minutes): 69 minutes Discharge Plan Discharge Items Patient Disposition: Transfer Acute Care Hospital Reason For Visit: HYPOTENSION Discharge Diagnosis: Septic shock Acute pyelonephritis E. coli bacteremia Renal abscess Decompensated cirrhosis Hepatic encephalopathy Hepatorenal syndrome Severe pulmonary hypertension Acute respiratory failure with hypoxia Pancytopenia Vitamin D deficiency Condition on Discharge: Fair Activity: Per Instructions section Exercise/Sports: As tolerated Non-emergency contact: Primary Care Provider and Specialist Call non-emergency contact if: you have any medication questions, your symptoms worsen, your pain is concerning for you and you have a fever Follow-up/Referrals: Sarah Galaviz DO [Primary Care Provider] - Diet: Carb Consistent or DM2 Addtl Attending Provider Instructions: -- Follow-up with Dr.Tomeka Montoya at [facility] for further evaluation and management Seek immediate medical attention if your symptoms reoccur or worsen Please review medication list provided on discharge for any medication changes as instructed. Please call if you have any questions or problems. You can reach a [facility] hospitalist on duty at [facility] 24 hours a day by calling [phone] Addtl Disbursement Clerk Provider Instructions: Date of Service: July 18, 2025 Current Inpatient Medications Dextrose (Dextrose 50% 50 Ml Syringe) 25 - 50 ml IV UD PRN; Protocol PRN Reason: Hypoglycemia Protocol Stop: 08/14/25 12:00 Ergocalciferol (Ergocalciferol 1250 Mcg (50,000 Units) Cap) 1,250 mcg PO Fr@0900 GEOFF Stop: 08/14/25 10:59 Last Admin: 07/15/25 12:03 Dose: 1,250 mcg Ferrous Sulfate (Ferrous Sulfate 325 Mg Tab) 325 mg PO DAILY [facility] Stop: 08/13/25 08:59 Last Admin: 07/18/25 07:57 Dose: 325 mg Fluticasone Propionate (Fluticasone Propionate Na Spr 16 Gm Btl) 2 sprays NA QAM [facility] Stop: 08/13/25 08:59 Last Admin: 07/18/25 07:58 Dose: 2 sprays Folic Acid (Folic Acid 1 Mg Tab) 1 mg PO DAILY [facility] Stop: 08/13/25 08:59 Last Admin: 07/18/25 07:58 Dose: 1 mg Glucagon (Glucagon For Inj 1 Mg Vial) 1 mg SQ UD PRN; Protocol PRN Reason: Hypoglycemia Protocol Stop: 08/14/25 12:00 Glucose (Glucose 40% Gel 15 Gm Tube) 15 - 30 gm PO UD PRN; Protocol PRN Reason: Hypoglycemia Protocol Stop: 08/14/25 12:00 Glucose (Glucose 10 Tab/Tube) 4 - 8 tab PO UD PRN; Protocol PRN Reason: Hypoglycemia Protocol Stop: 08/14/25 12:00 Promethazine HCl (Phenergan) 6.25 mg in 50.25 mls @ 201 mls/hr IV Q6H PRN PRN Reason: Nausea And Vomiting Stop: 08/12/25 20:27 Last Infusion: 07/18/25 11:52 Dose: Infused Ceftriaxone Sodium (Rocephin) 2,000 mg in 50 mls @ 100 mls/hr IV Q24H [facility] Stop: 07/28/25 17:59 Last Infusion: 07/18/25 17:36 Dose: Infused Norepinephrine Bitartrate (Levophed/D5w) 4 mg in 250 mls @ 14.138 mls/hr IV .[id number] [facility]; Protocol Stop: 08/16/25 10:14 Last Admin: 07/18/25 02:37 Dose: 0.05 mcg/kg/min, 14.1 mls/hr Insulin Aspart (Insulin Aspart Per Unit Charge) 0 units SC ACHS [facility] Stop: 08/14/25 16:29 Last Admin: 07/18/25 16:24 Dose: Not Given Lactulose (Lactulose Syrup 20 Gm/30 Ml Udc) 20 gm PO BID [facility] Stop: 08/12/25 21:44 Last Admin: 07/18/25 07:58 Dose: 20 gm Levalbuterol HCl (Levalbuterol 1.25 Mg/3 Ml Neb) 1.25 mg NEB Q6H PRN PRN Reason: Shortness Of Breath Or Wheezing Stop: 08/13/25 17:52 Last Admin: 07/16/25 19:45 Dose: 1.25 mg Miscellaneous (Carbohydrates For Hypoglycemia ) 15 - 30 gm PO UD PRN PRN Reason: Hypoglycemia Protocol Stop: 08/14/25 12:00 Multivitamins (Multivitamin Tab) 1 tab PO QAM [facility] Stop: 08/13/25 08:59 Last Admin: 07/18/25 07:57 Dose: 1 tab Pantoprazole Sodium (Pantoprazole 40 Mg Tab) 40 mg PO QAM [facility] Stop: 08/13/25 08:59 Last Admin: 07/18/25 07:58 Dose: 40 mg Rifaximin (Rifaximin 550 Mg Tablet) 550 mg PO BID [facility] Stop: 08/13/25 22:29 Last Admin: 07/18/25 07:57 Dose: 550 mg Sildenafil Citrate (Sildenafil Citrate 20 Mg Tablet) 20 mg PO TID [facility] Stop: 08/16/25 16:34 Last Admin: 07/18/25 13:09 Dose: 20 mg Pending Studies at Discharge: Yes Studies:: Blood cultures Stand-Alone Forms: [facility] Skilled Items Patient informed of condition?: Yes DNR: Yes Discharge Level of Care: Other Communicable Disease: No Discharge Prognosis: Deteriorating Lines: Peripheral IV Urinary Catheter: Yes Medications and DC Order Prescriptions: Continued multivitamin Tablet 1 tab PO QAM pantoprazole 40 mg tablet,delayed release (DR/EC) 40 mg PO QAM fluticasone propionate 50 mcg/actuation Mobile,Suspension 2 spray INTRANASAL QAM Rx Instructions: administer into each nostril Uptravi 200 mcg tablet 200 mcg PO TID Uptravi 200 mcg (140)- 800 mcg (60) tablets,dose pack 1 ea PO UD Rx Instructions: TITRATE PACK zinc glycinate 20 mg Capsule 20 mg PO DAILY furosemide 40 mg tablet 40 mg PO DAILY lactulose [Constulose] 10 gram/15 mL solution 30 ml PO TID sildenafil (pulm.hypertension) 20 mg tablet 40 mg PO TID vitamin A 3,000 mcg (10,000 unit) Capsule 3,000 mcg PO DAILY ferrous sulfate 325 mg (65 mg iron) Tablet 325 mg PO DAILY folic acid 1 mg tablet 1 mg PO DAILY Discharge Orders: Discharge Order (Routine); Ordered 07/18/25 Ordered By: Tai Multani Admission Data Admit Date/Time: 07/13/25 19:49 Attending Provider: Tai Multani Admit Provider: Leonel Miller Primary Care Provider: Sarah Galaviz Other Providers: Leonel Miller; Mercy Hammond; Nader Bethea; Jenna Mcgregor; Julianne Yadav; Abby Beasley; Maddy Ledbetter; Chava Nixon; Isiah Cabral; Frances Quiroz; Mishel Piedra; Maya Dyer; Lyly Potter; Luz Douglass; Favian Escalante; Rudi Matias; Bjorn De Leon; Evangelina Dorado; Des Miller Jr; Jerad Fall.; Keven Dye; Walter Feng; Yany Bustamante; Maged Bernardo I; Brionna Denson; Say Tolentino; Barrera Vasquez; Clay Whitaker; Marcos Valdez; Federica Gonzales; Maya Salgado; Clarke Caceres
[2025-07-18 18:59] LABS: Anisocytosis Present; Hematocrit (blood only) 24.0 % (37.0-47.0); Hemoglobin 7.2 g/dl (12.0-16.0); Mean Corpuscular Hemoglobin 31.3 pg (25.0-34.0); Mean Corpuscular Volume 104.3 fL (80.0-100.0); Ovalocytes 1+; Platelet Count 40 K/uL (130-400); Polychromasia 2+; RDW Standard Deviation 89.5 fL (36.4-46.3); Red Blood Count 2.30 M/uL (4.20-5.40); Tear Drop Cells 1+; White Blood Count 8.68 K/ul (4.8-10.8)
[2025-07-18] MEDS: BENZONATATE 100 MG CAPSULE PO ONE (22:31)
[2025-07-19 04:24] LABS: Hematocrit (blood only) 23.7 % (37.0-47.0); Hemoglobin 7.1 g/dl (12.0-16.0); Mean Corpuscular Hemoglobin 31.3 pg (25.0-34.0); Mean Corpuscular Volume 104.4 fL (80.0-100.0); Platelet Count 38 K/uL (130-400); RDW Standard Deviation 89.2 fL (36.4-46.3); Red Blood Count 2.27 M/uL (4.20-5.40); White Blood Count 5.89 K/ul (4.8-10.8)
[2025-07-19 04:52] LABS: Alanine Aminotransferase 56.0 U/L (7-52); Albumin Globulin Ratio 1.0 (0.9-2); Albumin Level 3.5 gm/dl (3.4-5.0); Alkaline Phosphatase 143.0 U/L (34-104); Anion Gap 14.0 (3-11); Bilirubin,Total 24.5 mg/dl (0.2-1.0); Blood Urea Nitrogen 89.0 mg/dl (6-23); Calcium 9.2 mg/dl (8.6-10.3); Carbon Dioxide 17.0 mmol/L (21-32); Chloride 104.0 mmol/L (98-107); Creatinine Clr Calc Pharmacy 25.4 ml/min; Globulin 3.4 gm/dl (2.5-4.0); Glucose 125.0 mg/dl (70-99(Fasting)); Magnesium 3.1 mg/dl (1.7-2.4); Potassium 3.4 mmol/L (3.5-5.1); Sodium 135.0 mmol/L (136-145); Total Protein 6.9 gm/dl (6.0-8.3)
[2025-07-19 04:57] LABS: INR 1.6 (0.9-1.1); Prothrombin Time 16.0 Seconds (9.0-12.0)
--- NOTE | 2025-07-19 07:17 | Hospitalist Progress Note ---
Date of Service July 19, 2025 Assessment & Plan (1) Severe sepsis: Plan: Septic shock Acute pyelonephritis E. coli bacteremia Suspected developing renal abscess Lactic acidosis--chronic likely multifactorial due to infection, hepatorenal failure --CT ABD: New 3 cm area of altered enhancement in the upper right kidney, most likely due to pyelonephritis. Apparent mild wall thickening of the right renal pelvis, which may also be due to infection. Bilateral renal calculi and left renal cysts. Cirrhosis and portal hypertension. Splenomegaly Small to moderate amount of ascites. Small hepatic cysts . Cholelithiasis without evidence of acute cholecystitis . Unchanged foreign body within the gastric lumen. Apparent mild colonic wall thickening. This could be due to secondary edema from hypoalbuminemia, though infectious colitis or inflammatory bowel disease is also possible --Repeat CT abdomen: Nephrolithiasis, 3.7 cm hypoenhancing focus within the upper pole of the right kidney with decreased enhancement since prior CT. This could represent a focus of pyelonephritis. A developing renal abscess or renal infarct are within the differential. Cirrhotic liver with manifestations of portal hypertension including splenomegaly, moderate ascites and varices formation. Moderate right and small left pleural effusions, increased in size since prior exam. Cholelithiasis. --Blood Cultures:12/17: Growing E. coli --Repeat blood cultures negative to date --Urine culture: E. coli Continue IV Rocephin>> transition to Zosyn Received IV fluids Continue Levophed per ICU team Appreciate trade show specialist help Poor prognosis Palliative care involved as well Plan to transfer to [facility] when accepted Decompensated cirrhosis/Hepatic encephalopathy--POA H/O MAFLD Elevated ammonia levels CT scan as above Liver USD:Cirrhotic liver. No suspicious hepatic lesions. Slow flow within the main portal vein indicative of portal hypertension. Small amount of perihepatic ascites. No biliary ductal dilatation. No common bile duct calculi identified although distal common bile duct obscured. Cholelithiasis. Mild gallbladder wall thickening. However, no sonographic Copeland sign to strongly suggest acute cho lecystitis. Monitor MELD score Continue lactulose to titrate to 3-4 good bowel movements per day Low-sodium diet Appreciate GI input Needs follow-up with hepatology Dr. Dorado on discharge Avoid hepatotoxic agents as able Also started on rifaximin Hepatic function continues to worsen Requested GI to reevaluate per ICU Acute kidney injury on CKD stage III Possible Hepatorenal syndrome Avoid hepato/nephrotoxic agents as able Appreciate nephrology input Received IV diuretics with poor response Monitor I's and O's Poor candidate for dialysis per nephrology Palliative care consulted to address goals of care Nephrology following Urine output slowly improving Troponin elevation Likely due to renal dysfunction/sepsis Denies any chest pain Echo showed no wall motion abnormality Severe pulmonary hypertension Severe tricuspid regurgitation --ECHO: Right ventricle severely dilated. Right ventricle systolic function is moderately reduced. Right atrium severely dilated. Left ventricular cavity is small. EF 65 to 70%. Flattened septum consistent with RV pressure/volume overload. Severe tricuspid regurgitation. Severe pulmonary hypertension is present. Compared to prior study, no significant change. --Resume sildenafil Hyperglycemia HbA1c unreliable due to significant anemia Insulin sliding scale for now Monitor blood glucose levels Acute hypoxemic respiratory failure Nocturnal hypoxemia CTA showed no PE. Small bilateral pleural effusions, atelectasis. Continue supplemental oxygen as needed Chronic pancytopenia secondary to liver disease Anemia of chronic disease --S/P 1 unit PRBCs Monitor H&H and transfuse as needed Anemia workup reviewed Currently denies any bleeding issues Monitor CBC Vitamin D deficiency Started on vitamin D supplements Prolonged QTc Avoid QTc prolonging meds Monitor Ambulatory dysfunction Bedbound at baseline per patient Past tobacco abuse As per records Metallic foreign body gastric lumen on CT scan Thought to be metallic clip Also documented on prior imaging, records DVT Px: SCDs Re: Thrombocytopenia, history of GI bleed CODE STATUS DNI DNR--ICU team discussed with patient and patient's family who agrees Disposition [facility] as able After long discussion by ICU team with patient and patient's family, patient was thought to be better served at a tertiary care facility. Given need for possible CRRT, nephrostomy tube placement for renal abscess, access to evaluation by transplant team patient will be transferred to [facility] for further management. Dr.Tomeka Montoya at [facility] kindly accepted the patient for further management. Patient was informed and agrees with the plan. Informed patient's Daughter (Jeaneth) over the phone who understands and agrees with the plan. Plan to transfer once bed available. Admission and Anticipated Discharge Date Admission Date: July 13, 2025 Subjective Patient is seen and examined at bedside Patient states having some soreness at central line region Also reports generalized weakness and intermittent dizziness Urine output improved over 24 hours Renal function stable Waiting for [facility] transfer Remained on Levophed Saturating low 90s on supplemental oxygen Review of Systems Review of Systems: All systems reviewed & are unremarkable except as noted in Subjective Physical Exam Physical Exam: Physical Exam: Vitals signs as noted above General Appearance:Moderately built and nourished, no apparent distress, frail, chronic ill appearing Head: normocephalic, Atraumatic Eyes: normal inspection, EOMI Neck: supple, Trachea midline Respiratory/Chest: Decreased breath sounds, basal crackles, No accessory muscle use Cardiovascular: S1, S2, + murmur Abdomen/GI:Soft, mildly distended, Non tender, Bowel sounds present Extremities/Musculoskeletal:normal inspection, Trace edema Neurologic/Psych:AAOX3, grossly no focal neurological deficits Skin: normal color, warm,+Jaundice Results & Data Results & Data Vital Signs (Past 12 Hours) Vital Signs Temp Pulse Resp BP BP Pulse Ox 07/19/25 06:15 36.7 C 81 17 96 07/19/25 06:00 100/67 07/19/25 05:39 36.7 C 86 16 96 07/19/25 05:09 36.7 C 82 19 92/61 L 94 07/19/25 04:36 36.7 C 82 17 95 07/19/25 04:09 36.7 C 81 19 100/67 95 07/19/25 03:36 36.8 C 84 21 93 07/19/25 03:12 36.9 C 83 19 86/60 L 93 07/19/25 02:30 36.9 C 94 H 18 07/19/25 02:06 36.9 C 91 H 17 100/70 98 07/19/25 01:54 36.9 C 85 19 95 07/19/25 01:06 37.0 C 87 24 94 07/19/25 01:00 103/72 07/19/25 00:30 36.9 C 83 17 95 07/19/25 00:03 36.9 C 85 17 101/66 94 07/19/25 00:00 83 07/18/25 23:36 36.9 C 83 18 93 07/18/25 23:00 36.9 C 81 17 96/57 L 92 07/18/25 22:30 36.9 C 85 24 93 07/18/25 22:00 36.9 C 85 18 91/61 L 90 07/18/25 21:33 36.9 C 83 16 91/63 L 94 07/18/25 21:03 36.8 C 84 17 94 07/18/25 20:36 36.5 C 81 15 92 07/18/25 20:09 36.8 C 83 18 93 07/18/25 20:03 91/67 L 07/18/25 19:33 36.6 C 80 14 95 Laboratory Results Short CBC 07/18/25 07/19/25 Range/Units 17:39 03:39 WBC 8.68 5.89 (4.8-10.8) K/ul Hgb 7.2 L 7.1 L (12.0-16.0) g/dl Hct 24.0 L 23.7 L (37.0-47.0) % Plt Count 40 L 38 L (130-400) K/uL BMP 07/19/25 03:39 Sodium 135 L Potassium 3.4 L Chloride 104 Carbon Dioxide 17 L BUN 89 H Creatinine 2.43 H Glucose 125 H Calcium 9.2 Liver Function 07/19/25 Range/Units 03:39 Total Bilirubin 24.5 H (0.2-1.0) mg/dl AST 96 H (13-39) U/L ALT 56 H (7-52) U/L Alkaline Phosphatase 143 H (34-104) U/L Albumin 3.5 (3.4-5.0) gm/dl
--- NOTE | 2025-07-19 08:27 | Critical Care Progress Note ---
Date of Service July 19, 2025 Assessment & Plan (1) Pulmonary arterial hypertension associated with portal hypertension: (2) Septic shock: (3) Pyelonephritis: (4) Acute renal failure: (5) Hepatic encephalopathy: (6) Acute blood loss anemia: (7) Thrombocytopenia: Plan Patient is a 62-year-old female with a past medical history significant for pulmonary hypertension with RV failure, portal hypertension and cirrhosis (possible autoimmune, GENI positive, positive ASMA), history of GI bleeding secondary to variceals, chronic thrombocytopenia and CKD stage III. The patient has a complicated medical history. In November 2023 she was admitted with hypoxic respiratory failure thought to be secondary to cor pulmonale from pulmonary hypertension. She was transferred to [place] for IV prostacyclin. The stent was thought to have possible autoimmune hepatitis and had positive ASMA antibody. She also was positive for AMA and TTG IgA concerning for celiac disease and autoimmune hepatitis. This patient was discharged from [place] with sildenafil and macitentan for her pulmonary hypertension. She underwent liver biopsy in February 2024 which showed lobular and portal inflammation with areas of fibrosis. She was admitted to our facility in March 2025 with GI bleeding and at this time was transferred to [facility]. The patient underwent EGD and was found to have 1 esophageal varices and portal hypertensive gastropathy. The patient follows with [facility] gastroenterology. She was also reportedly seen at [facility] for possible liver transplant but told she did not need a liver transplant during that visit. The patient presented to our facility again on 07/13/2025 with symptoms of dysuria, hematuria, generalized weakness and shortness of breath. Of note she had been in the emergency department on 06/25/2025 with symptomatic anemia, hemoglobin was 5, she did not have active bleeding was transfused 2 units of PRBCs in the ER and discharged home. During her current visit the patient was found to be hypotensive and hypoxic. Lactic acid was elevated. UA was concerning for UTI. CT of the abdomen and pelvis did not show evidence of hydronephrosis however bilateral nephrolithiasis was appreciated. There was a 3.7 cm focus within the upper pole of the right kidney which possibly represented a focus of pyelonephritis. Striated bilateral nephrograms were appreciated. Cirrhotic appearing liver with evidence of portal hypertension, splenomegaly and moderate ascites. Moderate right and left pleural effusions were also appreciated. Cholelithiasis was appreciated. Due to hypotension a central venous catheter was placed. Chest x-ray showed good placement, minimal blunting of both costophrenic angles concerning for pleural effusions. The patient was admitted to the ICU for further care. Gastroenterology and nephrology were consulted. Blood cultures and urine cultures grew E. coli for which the patient is receiving Rocephin. The patient's urine output did not improve. Total bilirubin continues to rise. Total bilirubin continued to rise. She was trialed on Lasix without improvement, also given albumin. On 07/18/2025 given multiorgan dysfunction with liver disease and rising bilirubin, renal dysfunction with poor urine output and worsening hypoxia with underlying pulmonary hypertension a family discussion was held. I discussed with them the overall prognosis given her multiorgan dysfunction. They requested that I speak with [facility] as the patient had previously been evaluated there for liver transplant. I spoke with [facility] hepatology, they agreed that the patient required a higher level of care and they would evaluate her when she arrived at their facility however they did not think that she would be a candidate for liver transplant given her pulmonary hypertension. I spoke with the director non profit also at [facility] and they agreed to accept her to their medical ICU. Overnight the patient did start having higher urine output with a goal MAP of 80 and made about 700 cc of urine. Creatinine came down slightly. Bilirubin continues to rise. Procalcitonin is increasing. Transfer center was notified of the change in her status. Has been accepted at [facility] awaiting bed. Reason Critically Ill: Septic shock E. coli bacteremia with E. coli UTI Pyelonephritis with possible renal abscess BRY on top of CKD Severe pulmonary hypertension Liver cirrhosis, possibly autoimmune versus secondary to pulmonary hypertension Elevated T bilirubin, concern for ascending cholangitis Acute blood loss anemia with history of GI bleeding Chronic thrombocytopenia Hepatic encephalopathy Neuro: Hepatic encephalopathy. Waxing and waning mentation. Continue lactulose. Goal is 4 loose bowel movements daily. Ammonia was 66 yesterday. If worsening mentation will need ABG. Cardiac: Severe underlying pulmonary hypertension with valvular disturbance. Cor pulmonale. Patient was started back on sildenafil low-dose 20 mg 3 times daily. Previously was on macitentan however per patient and family this was discontinued outpatient. Remains in shock, likely septic shock given E. coli bacteremia and pyelonephritis. Other etiologies may include ascending colon Trego. Continue norepinephrine. Continue sildenafil. Respiratory: Hypoxic respiratory failure, requiring 6 L of oxygen. Likely secondary to pulmonary hypertension and pulmonary vascular congestion with pleural effusion. May have a component of hepatopulmonary syndrome. Echo was done in the emergency department upon arrival to the hospital however was done without bubble study. Continue oxygen supplementation. If oxygenation continues to deteriorate repeat imaging of the chest. 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 Biopsy in 2023 showed focal areas of fibrosis. Total bilirubin is continuing to rise. Alk phos is elevated. Liver enzymes are mildly elevated. Hepatic encephalopathy is present. Continuing lactulose and rifaximin. Has a history of GI bleeding. No active bleeding during this hospital stay. Continue pantoprazole daily. I spoke with hepatology at [facility], they agree she is not a candidate for liver transplant given severe pulmonary hypertension that is uncontrolled. I am concerned that she may have a ascending cholangitis given her liver function analysis. I will repeat LFTs and differentiate bilirubin. Will obtain a liver ultrasound today. RENAL/LYTES: BRY on CKD. Did not respond to Lasix and albumin. Nephrology is consulted. Possible renal abscess versus infarct appreciated on CT. Has pyelonephritis. Increased urine output overnight. Seem to respond to higher MAP of 80. No indication for dialysis at this time. : Delgado catheter is in, keep in place, monitor strict I's and O's. ENDO: Blood sugar acceptable. Has been had minimal p.o. intake. Monitor glucose Q6. HEME: Anemia and thrombocytopenia. Hemoglobin is 7.1. No evidence of bleeding at this time. Platelets low, no active bleeding appreciated at this time. Will repeat CBC this afternoon. Transfusion threshold 7 or higher if there is active bleeding. ID: E. coli UTI and bacteremia. Likely secondary to pyelonephritis. Patient is on Rocephin 2 g daily. Repeat blood cultures no growth to date. Given patient's LFT pattern I and concern for ascending cholangitis, will get liver ultrasound. May need ERCP. Given increasing concern for ascending cholangitis we will need to adjust antibiotics, she needs anaerobic coverage. will switch to Zosyn. Feeding: Sips and chips. Fluids: No maintenance fluids Analgesia: None Activity: Bedrest, may get up to chair with PT today. Thromboprophylaxis: SCDs Ulcer prophylaxis: Pantoprazole Glycemic control: Blood glucose acceptable, monitor every 6. Bowels: Pantoprazole, lactulose Indwelling catheters: Delgado, central venous catheter Antibiotics: Rocephin, will switch to Zosyn today. Plan: Patient remain in the medical ICU today. Remains critically ill with multiorgan dysfunction. Urine output has increased. Seem to respond to a higher MAP with the Levophed. Continue norepinephrine. Keep Delgado catheter in place. Monitor strict I's and O's. Some mild hypokalemia. I will repeat a chemistry at 1 PM today. No indication for dialysis at this time. Waxing and waning mentation, encephalopathic. Sips and chips only due to concern for aspiration. Ammonia was 66, will consider repeating tomorrow. Continue lactulose. Given rising T. bili, elevated alk phos and mildly elevated LFTs I will repeat liver function to differentiate bilirubin. I will also obtain a liver ultrasound. Concern for ascending cholangitis. Patient may need ERCP. On Rocephin. Adjusting to Zosyn for better anaerobic coverage. Will ask our GI team to come back and evaluate her. Has been accepted at [facility], will see hepatology. Awaiting bed. I have personally spent 60 minutes of critical care time in the direct management of this patient. This is a life/limb threatening event. This includes time spent evaluating patient, direct bedside care, chart review, placing orders, interpretation of diagnostic studies, discussion with consultants, patient, and family members, as well as other required patient management activities. This time is exclusive of all separately billable procedures, and teaching time and separate from and in addition to any other critical care service time. Admission and Anticipated Discharge Date Admission Date: July 13, 2025 Subjective Past 24-hour events: Met with family and patient yesterday. Also discussed case with nephrology. Family is agreeable to transfer for higher level of care. I discussed her case with hepatology at [facility] as well as the director non profit in ICU, was accepted at [facility]. Awaiting bed. 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 Overnight patient started making more urine, we had pushed her MAP up to about 80 and this seemed to improve her urine output. Remained on Levophed overnight. Renal function slightly improving with creatinine. Still slightly encephalopathic. Was made n.p.o. and opioids were stopped. Okay for sips and chips. Family also wanted to make her DNR/DNI yesterday. Rounding: Patient is awake this morning. Slightly confused. Remains on Levophed. MAP goal is slightly higher. We tried pausing Levophed however MAP drops below 65. Not having any belly pain today. Says that she is coughing a little bit but not coughing anything up. Intake: 833 mL Output: 987 mL Net: -153 mL Mechanical ventilation: On 6 L by nasal cannula Feeding: N.p.o., okay for sips and chips IV infusions: Norepinephrine Indwelling catheters: Delgado catheter, central venous catheter Laboratory: CBC: WBC 5.89, hemoglobin 7.1, platelet 38 Coags: PT 16, INR 1.6 Chemistry: Sodium 135, potassium 3.4, chloride 104, bicarb 17, anion gap 14, BUN 89, creatinine 2.43, glucose 125, calcium 9.2, phosphorus 5.9, magnesium 3.1 Liver function: Total bilirubin 24.5, AST 96, ALT 56, alk phos 143, ammonia 66 yesterday Other: LDH 281 yesterday, procalcitonin increasing to 2.98, haptoglobin is pending, peripheral smear pending Micro: Blood culture x 2 positive for E. coli on 07/13/2025 (sensitive to Rocephin). Urine culture 07/13/2025 positive for E. coli. ABG: None Review of Systems Review of Systems: Denies abdominal pain. Denies nausea. Denies headache. Endorses new dry cough. Physical Exam Physical Exam: Physical examination: General: Chronically ill-appearing, resting in bed, visibly jaundiced. HEENT: JVD appreciated. Sclera are icteric. Skin: Warm extremities. Some edema is present in the lower extremities. Cardiovascular: Heart is a regular rate and rhythm, no murmurs appreciated on my exam. JVD appreciated. Edema of lower extremities. Remains on Levophed. Lungs: Crackles at bases. No wheezing. On 6 L via nasal cannula. Abdomen: Nontender to palpation. No masses appreciated. No pain to percussion of costophrenic angles. Musculoskeletal: Normal muscle mass and tone. Neurologic: Awake and alert. Falls asleep easily. Waxing and waning mentation. Speech is fluent. Forgetful at times. Moving all extremities. Psychiatric: Appropriate cooperative during my exam. Results & Data Results & Data Vital Signs (Past 12 Hours) Vital Signs Temp Pulse Resp BP BP Pulse Ox 07/19/25 06:15 36.7 C 81 17 96 07/19/25 06:00 100/67 07/19/25 05:39 36.7 C 86 16 96 07/19/25 05:09 36.7 C 82 19 92/61 L 94 07/19/25 04:36 36.7 C 82 17 95 07/19/25 04:09 36.7 C 81 19 100/67 95 07/19/25 03:36 36.8 C 84 21 93 07/19/25 03:12 36.9 C 83 19 86/60 L 93 07/19/25 02:30 36.9 C 94 H 18 07/19/25 02:06 36.9 C 91 H 17 100/70 98 07/19/25 01:54 36.9 C 85 19 95 07/19/25 01:06 37.0 C 87 24 94 07/19/25 01:00 103/72 07/19/25 00:30 36.9 C 83 17 95 07/19/25 00:03 36.9 C 85 17 101/66 94 07/19/25 00:00 83 07/18/25 23:36 36.9 C 83 18 93 07/18/25 23:00 36.9 C 81 17 96/57 L 92 07/18/25 22:30 36.9 C 85 24 93 07/18/25 22:00 36.9 C 85 18 91/61 L 90 07/18/25 21:33 36.9 C 83 16 91/63 L 94 07/18/25 21:03 36.8 C 84 17 94 07/18/25 20:36 36.5 C 81 15 92 Coding Level of Care Code 73238 CRITICAL CARE 1ST 30-74M Diagnoses Pulmonary arterial hypertension associated with portal hypertension I27.21; K76.6 Septic shock A41.9; R65.21 Pyelonephritis N12 Acute renal failure, unspecified acute renal failure type N17.9 Acute renal failure type: unspecified Hepatic encephalopathy K76.82 Acute blood loss anemia D62 Thrombocytopenia D69.6 (4) Acute renal failure Acute renal failure type: unspecified Qualified Code(s): N17.9 - Acute kidney failure, unspecified
[2025-07-19 08:56] LABS: ALC (manual) 1.82 K/uL (1.2-3.4); ANC (manual) 6.68 K/uL (1.4-6.5)
--- NOTE | 2025-07-19 10:14 | Ultrasound Report ---
US liver CLINICAL HISTORY: Concern for ascending cholangitis. COMPARISON STUDY: CT of the abdomen and pelvis with contrast July 13, 2025. CT of the abdomen and pelvis without contrast July 15, 2025. Right upper quadrant ultrasound December 10, 2023. FINDINGS: Hepatic echogenicity is increased. There is coarsening of hepatic echotexture with nodulari ty of the liver surface indicative of cirrhosis. No suspicious hepatic lesions are present. There is a 1.1 cm right hepatic lobe cyst. A small amount of perihepatic ascites is present. Slow flow is iden tified within the main portal vein consistent with portal hypertension. The main portal vein was tovar nt on contrast enhanced CT of July 13, 2025. There is no biliary ductal dilatation. Common bile du ct measures 4 mm in caliber. The common bile duct is partially obscured. There are small gallstones w ithin the gallbladder. There is mild gallbladder wall thickening. No sonographic Copeland sign was elic ited. There is no right hydronephrosis. Pancreas is unremarkable by sonography. IMPRESSION: 1. Cirrhotic liver. No suspicious hepatic lesions. Slow flow within the main portal vein indicative o f portal hypertension. Small amount of perihepatic ascites. 2. No biliary ductal dilatation. No common bile duct calculi identified although distal common bile d uct obscured. 3. Cholelithiasis. Mild gallbladder wall thickening. However, no sonographic Copeland sign to strongly suggest acute cholecystitis. ACT 112: Negative or not required by law. Electronically signed by: Que Hutchinson M.D. 07/19/2025 10:13 AM
[2025-07-19] MEDS: PIPERACILLIN/TAZOBACTAM 4.5 GM/100 ML BAG IV SCH (10:17)
--- NOTE | 2025-07-19 11:13 | Nephrology Progress Note ---
Date of Service July 19, 2025 Assessment & Plan Admission and Anticipated Discharge Date Admission Date: July 13, 2025 Subjective Assessment & Plan (1) Acute renal failure: Plan: worsening Oliguric Stage 3 BRY in the setting of underlying /chronic right heart failure from severe pulmonary hypertension and advanced/complex liver disease. Baseline creatinine is 0.7-0.9. Presented w/ creatinine 1.7 on 07/13 in the evening; up to 2.5 today. Etiologies include IV contrast exposure, septic shock, pyelonephritis, worsening heart failure/cardiorenal syndrome in addition to underlying cirrhosis. monitor BMP keep hgb > 7.5 her urine Output did actually pickler helper a lot yesterday and creat actually went down so there is hope from renal part at least. continue same. needs to continue strict I/O Patient will not tolerate dialysis. Also given her overall situation she is not a candidate for dialysis at all. but based on situation today she does not need dialysis today. She might benefit from palliative evaluation and comfort measure approach. She is end stage by all account at this time Discussed case with ICU . (2) Shock: Plan: combined septic and ?cardiac >> continue Levophed as needed. Defer to ICU (3) Sepsis: Plan: continue antibiotics renally dosed. +E coli septicemia Subjective Seen for BRY/HRS. She remains critically ill. made lot more urine. Review of Systems Review of Systems: All other systems were reviewed and negative except as noted in HPI Physical Exam Physical Exam: General exam: Appears comfortable, no acute distress HEENT: deep jaundice Neck: No JVD Respiratory system: Clear breath sounds bilaterally Gastrointestinal: Abdomen is soft, non distended, non tender, bowel sounds are present CVS: Regular rate and rhythm. No murmurs, rubs or gallops Extremities: Non tender, no edema, peripheral pulses are present Skin: No rashes, deep jaundice Results & Data Vital Signs (Past 12 Hours) Vital Signs Temp Pulse Resp BP BP Pulse Ox O2 Del Method 07/19/25 10:03 36.7 C 86 26 H 91/63 L 91 07/19/25 09:36 36.8 C 85 23 90/51 L 91 07/19/25 09:09 36.8 C 90 19 87/58 L 97 07/19/25 08:34 Nasal Cannula 07/19/25 08:30 36.8 C 85 19 85/58 L 92 07/19/25 08:00 36.8 C 83 16 83/60 L 92 07/19/25 07:36 36.8 C 84 20 93/62 L 93 07/19/25 07:09 36.7 C 82 18 101/64 94 07/19/25 07:00 07/19/25 06:15 36.7 C 81 17 96 07/19/25 06:00 100/67 07/19/25 05:39 36.7 C 86 16 96 07/19/25 05:09 36.7 C 82 19 92/61 L 94 07/19/25 04:36 36.7 C 82 17 95 07/19/25 04:09 36.7 C 81 19 100/67 95 07/19/25 03:36 36.8 C 84 21 93 07/19/25 03:12 36.9 C 83 19 86/60 L 93 07/19/25 02:30 36.9 C 94 H 18 07/19/25 02:06 36.9 C 91 H 17 100/70 98 07/19/25 01:54 36.9 C 85 19 95 07/19/25 01:06 37.0 C 87 24 94 07/19/25 01:00 103/72 07/19/25 00:30 36.9 C 83 17 95 07/19/25 00:03 36.9 C 85 17 101/66 94 07/19/25 00:00 83 07/18/25 23:36 36.9 C 83 18 93 O2 Del Method O2 Flow Rate O2 Flow Rate 07/19/25 10:03 3 07/19/25 09:36 3 07/19/25 09:09 3 07/19/25 08:34 4 07/19/25 08:30 3 07/19/25 08:00 07/19/25 07:36 07/19/25 07:09 07/19/25 07:00 Nasal Cannula 4 07/19/25 06:15 07/19/25 06:00 07/19/25 05:39 07/19/25 05:09 07/19/25 04:36 07/19/25 04:09 07/19/25 03:36 07/19/25 03:12 07/19/25 02:30 07/19/25 02:06 07/19/25 01:54 07/19/25 01:06 07/19/25 01:00 07/19/25 00:30 07/19/25 00:03 07/19/25 00:00 07/18/25 23:36
--- NOTE | 2025-07-19 12:23 | Gastroenterology Progress Note ---
Date of Service July 19, 2025 Assessment & Plan (1) Chronic liver disease: Plan At this time, do not suspect cholangitis. Deterioration of hepatic function likely related to the multiorgan dysfunction. - continue with antibiotics. - proceed with transfer to tertiary center as planned. - Further recommendations to come with Supervising GI provider on medical rounds. Please see co-signature comments. Admission and Anticipated Discharge Date Admission Date: July 13, 2025 Supervising Physician Co-Signing Physician Notes I saw and examined this patient with our nurse practitioner and agree with her assessment and plan. Clinical picture most consistent with acute on chronic liver failure causing progressive jaundice. Aggravated by urosepsis and renal insufficiency. Clinically doubt cholangitis as precipitating factor. She does have cholelithiasis but no evidence of acute cholecystitis on imaging. Could consider MRI MRCP to exclude biliary tract pathology. Subjective Patient is a 64 yo female with cirrhosis. She is currently in the ICU due to hypotension related to sepsis, pyelonephritis. MELD 33. Nephrology following due to worsening kidney function and it is felt that she is not a candidate for dialysis. Family persuing a transfer to [facility] and she has been accepted there, just await bed. GI asked to see again for possible ascending cholangitis. patient tells me she feels weak. she is jaundiced. Some nausea related to medications, but no emesis. no pain. bowel are moving with lactulose. no blood in the stools or melena. 07/19/25 wbc 5.89, hgb 7.1, hct 23.7, plts 38, INR 1.6, Na 135, K 3.4, BUN 89, Cr 2.43, T bili 24.5, ast 96, alt 56, alk 143, US 07/19/25 1. Cirrhotic liver. No suspicious hepatic lesions. Slow flow within the main portal vein indicative of portal hypertension. Small amount of perihepatic ascites. 2. No biliary ductal dilatation. No common bile duct calculi identified although distal common bile duct obscured. 3. Cholelithiasis. Mild gallbladder wall thickening. However, no sonographic Copeland sign to strongly suggest acute cholecystitis. Review of Systems Review of Systems: All systems reviewed & are unremarkable except as noted in HPI & below Physical Exam Respiratory: on O2, respirations 26. nonlabored. Cardiovascular: Rate/Rhythm: regular rate and regular rhythm Gastrointestinal (Abdomen): normal bowel sounds, soft, nontender, no hepatosplenomegaly Skin: jaundiced. Psychiatric: Orientation: alert and oriented x 3 Results & Data Results & Data Vital Signs (Past 12 Hours) Vital Signs Temp Pulse Resp BP BP Pulse Ox O2 Del Method 07/19/25 10:03 98.1 F 86 26 H 91/63 L 91 07/19/25 09:36 98.2 F 85 23 90/51 L 91 07/19/25 09:09 98.2 F 90 19 87/58 L 97 07/19/25 08:34 Nasal Cannula 07/19/25 08:30 98.2 F 85 19 85/58 L 92 07/19/25 08:00 98.2 F 83 16 83/60 L 92 07/19/25 07:36 98.2 F 84 20 93/62 L 93 07/19/25 07:09 98.1 F 82 18 101/64 94 07/19/25 07:00 07/19/25 06:15 98.1 F 81 17 96 07/19/25 06:00 100/67 07/19/25 05:39 98.1 F 86 16 96 07/19/25 05:09 98.1 F 82 19 92/61 L 94 07/19/25 04:36 98.1 F 82 17 95 07/19/25 04:09 98.1 F 81 19 100/67 95 07/19/25 03:36 98.2 F 84 21 93 07/19/25 03:12 98.4 F 83 19 86/60 L 93 07/19/25 02:30 98.4 F 94 H 18 07/19/25 02:06 98.4 F 91 H 17 100/70 98 07/19/25 01:54 98.4 F 85 19 95 07/19/25 01:06 98.6 F 87 24 94 07/19/25 01:00 103/72 07/19/25 00:30 98.4 F 83 17 95 O2 Del Method O2 Flow Rate O2 Flow Rate 07/19/25 10:03 3 07/19/25 09:36 3 07/19/25 09:09 3 07/19/25 08:34 4 07/19/25 08:30 3 07/19/25 08:00 07/19/25 07:36 07/19/25 07:09 07/19/25 07:00 Nasal Cannula 4 07/19/25 06:15 07/19/25 06:00 07/19/25 05:39 07/19/25 05:09 07/19/25 04:36 07/19/25 04:09 07/19/25 03:36 07/19/25 03:12 07/19/25 02:30 07/19/25 02:06 07/19/25 01:54 07/19/25 01:06 07/19/25 01:00 07/19/25 00:30 Coding Level of Care Code 24887 SUB INP/OBS CARE 2/35MIN Diagnoses Chronic liver disease K76.9
--- NOTE | 2025-07-19 12:25 | Discharge Summary ---
Date of Service July 19, 2025 Admission HPI Per Admitting Provider History obtained from patient and records. 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 Last [facility] confinement March 2025 for UGIB. Patient transferred to [facility] for further evaluation. EGD at facility showed grade 1 esophageal varices and portal hypertensive gastropathy. Recent ER visit 2 weeks ago for symptomatic anemia without obvious bleed at home. Hemoglobin 5 at time of consultation. Patient transfused 2 units PRBC at the ER. 1 week history of dysuria symptoms with 1 episode of hematuria. Denies abdominal or flank pain. Poor appetite. Generalized weakness. Shortness of breath from being weak. Denies chest pain, cough, or fluid retention. Denies abdominal or flank pain. Patient compliant with home medications. SBP 90s upon arrival at the ER. Lowest O2 sats of 80s documented at the ER. Zosyn administered at the ER. Medical History as above Surgical History : D&C, BTL Family History : DM, dementia, asthma, thyroid disease, stroke, heart disease Personal/Social history : Past tobacco abuse, no EtOH intake, prior [employer] employment Admission Exam Per Admitting Provider GENERAL: Slightly uncomfortable, no respiratory distress SKIN: Normal color, warm HEENT: Pale palpebral conjunctivae, no ptosis, dry buccal mucosa, nasal cannula in place NECK : Supple, no tenderness CHEST : Decreased breath sounds, no tenderness HEART : Tachycardic, no obvious murmurs ABDOMEN: Some distention, nontender EXTREMITIES : Minimal LE swelling, no LE tenderness, palpable pulses, no other conspicuous deformities noted NEUROLOGIC : Coherent, no facial asymmetry, no other gross focality Principal Diagnosis Septic shock Acute pyelonephritis E. coli bacteremia Renal abscess Decompensated cirrhosis Hepatic encephalopathy Hepatorenal syndrome Severe pulmonary hypertension Acute respiratory failure with hypoxia Pancytopenia Vitamin D deficiency Discharge Data Allergies Allergy/AdvReac Type Severity Reaction Status Date / Time gluten Allergy Unknown Unknown Verified 07/13/25 21:48 Consultations 07/13/25 19:21 ED Decision to Admit Stat 07/13/25 21:48 Consult Gastroenterology Routine 07/14/25 15:25 Consult Nephrology Routine 07/14/25 22:41 Consult Paint Tinter Routine 07/18/25 17:45 Burn CD for patient Stat Procedures Performed Laboratory Results WBC 5.89 K/ul (4.8-10.8) 07/19/25 03:39 RBC 2.27 M/uL (4.20-5.40) L 07/19/25 03:39 Hgb 7.1 g/dl (12.0-16.0) L 07/19/25 03:39 POC Hgb 10.9 g/dl (12.0-16.0) L 07/15/25 00:28 Hct 23.7 % (37.0-47.0) L 07/19/25 03:39 POC Hct 32 % (37-47) L 07/15/25 00:28 MCV 104.4 fL (80.0-100.0) H 07/19/25 03:39 MCH 31.3 pg (25.0-34.0) 07/19/25 03:39 MCHC 30.0 g/dL (32.0-36.0) L 07/19/25 03:39 RDW Std Deviation 89.2 fL (36.4-46.3) H 07/19/25 03:39 RDW Coeff of Dalia 25.1 % (11.5-14.5) H 07/19/25 03:39 Plt Count 38 K/uL (130-400) L 07/19/25 03:39 MPV 11.1 fL (9.4-12.4) 07/19/25 03:39 Immature Gran % (Auto) % 07/18/25 17:39 Neut % (Auto) % 07/18/25 17:39 Lymph % (Auto) % 07/18/25 17:39 Weld % (Auto) % 07/18/25 17:39 Eos % (Auto) % 07/18/25 17:39 Baso % (Auto) % 07/18/25 17:39 Neut # (Auto) K/uL (1.40-6.50) 07/18/25 17:39 Lymph # (Auto) K/uL (1.20-3.40) 07/18/25 17:39 Weld # (Auto) K/uL (0.11-0.59) 07/18/25 17:39 Eos # (Auto) K/uL (0.00-0.50) 07/18/25 17:39 Baso # (Auto) K/uL (0.00-0.20) 07/18/25 17:39 Immature Gran # (Auto) K/uL (0.01-0.20) 07/18/25 17:39 Absolute Nucleated RBC 0.26 K/uL (0.00-0.12) H 07/19/25 03:39 Nucleated RBC % (auto) 4.4 % 07/19/25 03:39 Neutrophils % (Manual) 77 % 07/18/25 17:39 Lymphocytes % (Manual) 15 % 07/18/25 17:39 Monocytes % (Manual) 1 % 07/18/25 17:39 Eosinophils % (Manual) 1 % 07/18/25 17:39 Plasma Cell % (Manual) 6 % 07/18/25 17:39 Neutrophils # (Manual) 6.68 K/uL (1.40-6.50) H 07/18/25 17:39 Total Absolute Neuts 6.68 K/uL (1.4-6.5) H 07/18/25 17:39 Lymphocytes # (Manual) 1.30 K/uL (1.2-3.4) 07/18/25 17:39 Total Abs Lymphocytes 1.82 K/uL (1.2-3.4) 07/18/25 17:39 Monocytes # (Manual) 0.09 K/uL (0.11-0.59) L 07/18/25 17:39 Eosinophils # (Manual) 0.09 K/uL (0-0.50) 07/18/25 17:39 Plasma Cell # (Manual) 0.52 K/uL (0-0) H 07/18/25 17:39 Platelet Estimate Decreased (Normal) L 07/18/25 05:08 Polychromasia 2+ 07/18/25 17:39 Anisocytosis Present 07/18/25 17:39 Tear Drop Cells 1+ 07/18/25 17:39 Ovalocytes 1+ 07/18/25 17:39 Peripher Smr Path Cons 07/18/25 17:39 PT 16.0 Seconds (9.0-12.0) H 07/19/25 03:39 INR 1.6 (0.9-1.1) H 07/19/25 03:39 APTT 38 Seconds (21-31) H 07/13/25 17:03 PTT Ratio 1.4 07/13/25 17:03 Specimen Type FIONA 07/15/25 00:28 Sample Site R Radial 07/15/25: POC pH 7.37 (7.35-7.45) 07/15/25: POC pCO2 23 mmHg (35-46) L 07/15/25: POC pO2 32 mmHg (80-95) L 07/15/25: POC HCO3 13 mmol/L (19-24) L 07/15/25: POC Total CO2 14 mmol/L (24-31) L 07/15/25 POC Base Excess -12.0 mmol/L (-9-1.8) L 07/15/25: O2 Sat Pulse Oximetry 94 07/15/25: ABG pH (Temp Correct) 7.375 (7.35-7.45) 07/15/25: ABG pCO2 (Temp Corrct 23 mmHg (35-46) L 07/15/25: POC ABG pO2 at Pt Temp 31 07/15/25: POC ABG O2 Sat 62.0 % (90-95) L 07/15/25 00: Keshav Test NA 07/15/25: VBG pH 7.39 (7.36-7.41) 07/13/25 17:03 VBG pCO2 27 mmHg (38-50) L 07/13/25 17:03 VBG pO2 28 mmHg 07/13/25 17:03 VBG HCO3 16 mmol/L 07/13/25 17:03 VBG O2 Saturation < 60.0 % 07/13/25 17:03 VBG Base Excess -7.1 mEq/L 07/13/25 17:03 O2 Delivery Device Room Air 07/15/25 00:28 POC Sodium 138 mmol/L (135-144) 07/15/25: Sodium 135 mmol/L (136-145) L 07/19/25 03:39 POC Potassium 3.8 mmol/L (3.3-5.0) 07/15/25 00:28 Potassium 3.4 mmol/L (3.5-5.1) L 07/19/25 03:39 POC Chloride 106 mmol/L (101-112) 07/13/25 17:10 Chloride 104 mmol/L (98-107) 07/19/25 03:39 Carbon Dioxide 17 mmol/L (21-32) L 07/19/25 03:39 POC Total CO2 17 mmol/L (24-31) L 07/13/25 17:10 Anion Gap 14 (3-11) H 07/19/25 03:39 POC Anion Gap 18.0 mmol/L (16-25) 07/13/25 17:10 POC BUN 30 mg/dl (7-18) H 07/13/25 17:10 BUN 89 mg/dl (6-23) H 07/19/25 03:39 Creatinine 2.43 mg/dl (0.6-1.2) H 07/19/25 03:39 POC Creatinine 1.7 mg/dl (0.6-1.3) H 07/13/25 17:10 Est Cr Clr Drug Dosing 25.4 ml/min 07/19/25 03:39 eGFR 21.95 07/19/25 03:39 BUN/Creatinine Ratio 36.6 (10-20) H 07/19/25 03:39 Glucose 125 mg/dl (70-99(Fasting)) H 07/19/25 03:39 POC Glucose 157 mg/dl (70-99) H 07/19/25 11:33 POC Glucose (other) 138 mg/dl (70-99) H 07/17/25 20:41 Estimat Average Glucose Cancelled 07/14/25 08:[address] Glu mmol/L DNR mmol/L 07/14/25 08:[address] Glu mg/dL SEE NOTE mg/dL 07/14/25 08:19 Hemoglobin A1c <4.2 % (<5.7) 07/14/25 08:19 Hemoglobin A1c Cancelled 07/14/25 08:19 Lactate 1.9 mmol/L (0.4-2.0) 07/18/25 16:28 Calcium 9.2 mg/dl (8.6-10.3) 07/19/25 03:39 POC Ioniz Calcium Bhavesh 1.09 mmol/l (1.12-1.32) L 07/13/25 17:10 Ionized Calcium 1.12 mmol/L (1.12-1.32) 07/15/25 08:38 Phosphorus 5.9 mg/dl (2.5-4.9) H 07/19/25 03:39 Magnesium 3.1 mg/dl (1.7-2.4) H 07/19/25 03:39 Iron 108 mcg/dl (35-150) 07/15/25 08:38 TIBC TNP 07/15/25 08:38 Transferrin < 95 mg/dl (200-360) L 07/15/25 08:38 Transferrin % Sat TNP 07/15/25 08:38 Total Bilirubin 24.5 mg/dl (0.2-1.0) H 07/19/25 03:39 Direct Bilirubin 6.9 mg/dl (0-0.2) H 07/14/25 08:19 AST 96 U/L (13-39) H 07/19/25 03:39 ALT 56 U/L (7-52) H 07/19/25 03:39 Alkaline Phosphatase 143 U/L (34-104) H 07/19/25 03:39 Ammonia 66.0 umol/L (18-72) 07/18/25 14:27 Lactate Dehydrogenase 281 U/L (86-244) H 07/18/25 10:42 Total Creatine Kinase 34 U/L (26-192) 07/13/25 18:51 Troponin I High Sens 320.9 pg/ml (0-14) H* 07/13/25 18:51 B-Natriuretic Peptide > 4700 pg/ml (0-100) H 07/17/25 07:02 Total Protein 6.9 gm/dl (6.0-8.3) 07/19/25 03:39 Albumin 3.5 gm/dl (3.4-5.0) 07/19/25 03:39 Globulin 3.4 gm/dl (2.5-4.0) 07/19/25 03:39 Albumin/Globulin Ratio 1.0 (0.9-2) 07/19/25 03:39 Vitamin B12 686 pg/ml (180-914) 07/15/25 08:38 25-OH Vitamin D Total 22.9 ng/ml (30-100) L 07/15/25 08:38 Folate > 22.30 ng/ml (>5.38) 07/15/25 08:38 Procalcitonin 2.98 ng/ml (0-0.5) H 07/18/25 16:28 Random Cortisol 50.06 mcg/dl 07/14/25 23:00 Urine Color Dark Yellow 07/13/25 22:10 Urine Appearance Cloudy (Clear) A 07/13/25 22:10 Urine pH 5.5 (4.5-7.5) 07/13/25 22:10 Ur Specific [place] > 1.045 (1.000-1.030) H 07/13/25 22:10 Urine Protein 2+ (Negative) H 07/13/25 22:10 Urine Glucose (UA) Negative (Negative) 07/13/25 22:10 Urine Ketones Negative (Negative) 07/13/25 22:10 Urine Blood 2+ (Negative) H 07/13/25 22:10 Urine Nitrite Negative (Negative) 07/13/25 22:10 Urine Bilirubin 2+ (Negative) H 07/13/25 22:10 Urine Urobilinogen Negative (Negative) 07/13/25 22:10 Ur Leukocyte Esterase 2+ (Negative) H 07/13/25 22:10 Urine WBC (Auto) >50 /hpf (0-5) H 07/13/25 22:10 Urine RBC (Auto) 6-10 /hpf (0-2) H 07/13/25 22:10 U Hyaline Cast (Auto) 6-10 /lpf (0-2) H 07/13/25 22:10 U Epithel Cells (Auto) 0-2 /hpf (0-2) 07/13/25 22:10 Urine Bacteria (Auto) 3+ (None Seen) H 07/13/25 22:10 Hyaline Casts Present /lpf (None Presnt) A 07/13/25 22:10 Granular Casts Present /lpf (None Prsent) A 07/13/25 22:10 Urine Mucus Present (None Prsent) A 07/13/25 22:10 Ur Random Creatinine 128.7 mg/dl 07/15/25 09:07 U Random Total Protein 95.7 mg/dl (0-11.9) H 07/15/25 09:07 Ur Random Sodium < 10 mmol/L 07/15/25 09:07 Urine Comment 07/13/25 22:10 Nasal Screen MRSA (PCR) Negative (Negative) 07/14/25 23:54 SARS-CoV-2 (PCR) NEGATIVE (Negative) 07/13/25 17:30 Enterobacterales (PCR) DETECTED (NotDetected) A 07/13/25 17:03 E. coli (PCR) DETECTED (NotDetected) A 07/13/25 17:03 Influenza Type A (PCR) Negative (Neg) 07/13/25 17:30 Influenza Type B (PCR) Negative (Neg) 07/13/25 17:30 RSV (RT-PCR) Negative (Neg) 07/13/25 17:30 mcr-1 Colistin Res Gene PCR Not Detected (NotDetected) 07/13/25 17:03 blaIMP Car res Gene PCR Not Detected (NotDetected) 07/13/25 17:03 KPC-Carbap Res Gene PCR Not Detected (NotDetected) 07/13/25 17:03 blaNDM Car Res Gene PCR Not Detected (NotDetected) 07/13/25 17:03 OXA-48 Carbapenem Resis Gene (PCR) Not Detected (NotDetected) 07/13/25 17:03 blaVIM Car Res Gene PCR Not Detected (NotDetected) 07/13/25 17:03 CTX-M Gene Resistance (PCR) Not Detected (NotDetected) 07/13/25 17:03 Bld Cult ID Panel PCR See PCR Comment (NotDetected) 07/13/25 17:03 Blood Type B Positive 07/15/25 05:00 Antibody Screen NEGATIVE 07/15/25 05:00 Crossmatch See Detail 07/15/25 05:00 Impressions Chest CTA 07/13/25 17:22 Clinical history: Weakness and shortness of breath Technique: Axial computed tomography images were obtained of the chest after the administration of intravenous contrast according to the CT angiogram protocol Comparison is made to the prior CT dated 12/10/2023 Findings: There is no definite sign of pulmonary embolism. There is bilateral lower lobe atelectasis. There is no pneumothorax. There are new small bilateral pleural effusions. No endobronchial lesion is seen There is no mediastinal, hilar, or axillary adenopathy. The thoracic aorta appears unremarkable with no sign of aneurysm or dissection. There is no pericardial effusion. There is coronary atherosclerosis No fracture is seen. No focal osseous lesion is evident Impression: 1. No definite sign of pulmonary embolism 2. Small bilateral pleural effusions and bilateral lower lobe atelectasis 3. Coronary atherosclerosis Electronically signed by Kaiden Greenberg 07-13-2025 7:[address] 07/13/25 17:22 Technique: Axial computed tomography images were obtained of the brain from the vertex to the skull base without intravenous contrast. Findings: There is no sign of intracranial hemorrhage. There is normal villavicencio-white matter differentiation with no sign of acute or old infarction. No midline shift or other form of herniation is identified. There is no hydrocephalus. No obvious mass lesion is seen on this noncontrast examination. The visualized portions of the orbits and paranasal sinuses appear unremarkable. The mastoid air cells appear clear Impression: Unremarkable noncontrast CT of the brain Electronically signed by Kaiden Greenberg 07-13-2025 7:07 PM Abdomen/Pelvis CT 07/15/25 12:48 CT OF THE ABDOMEN AND PELVIS WITHOUT CONTRAST CLINICAL HISTORY: Reassess for possible ureteral stones/obstruction COMPARISON STUDY: CT of the abdomen and pelvis July 13, 2025. TECHNIQUE: Axial images of the abdomen and pelvis were obtained without IV contrast. Images were reviewed in the axial, sagittal, and coronal planes. Automated exposure control was utilized for the study. A dose lowering technique was utilized adhering to the principles of ALARA. FINDINGS: Moderate right and small left pleural effusions have increased in size since CT of July 13, 2025. Subpleural right lower lobe opacity favors atelectasis. No pneumatosis, free air or portal venous gas is present. Evaluation of the abdomen and pelvis is suboptimal on this unenhanced exam. The liver is cirrhotic appearing. Splenomegaly and moderate ascites are again noted. These appear similar to CT of July 13, 2025. No hepatic lesions are identified on this unenhanced examination. There are gallstones within the gallbladder. Gallbladder is not distended. Adrenal glands and pancreas are unremarkable. Evaluation for urinary calculi is suboptimal given excreted contrast. This represents delayed excretion of contrast. The nephrograms are heterogeneous. There are findings suggestive of striated nephrogram is. A 3.7 cm hypoenhancing focus within the upper pole of the right kidney is again noted. Enhancement is decreased when compared to prior exam. Left renal cysts are not ed. Delgado balloon and contrast within the bladder are noted. There is a small amount of gas within the bladder. There is no evidence for a bowel obstruction. Retroperitoneal collaterals are again noted. IMPRESSION: 1. No hydronephrosis. No definite ureteral calculi although sensitivity diminished given excreted contrast. Delayed renal excretion of contrast suggests underlying renal insufficiency. Bilateral nephrolithiasis. 2. 3.7 cm hypoenhancing focus within the upper pole of the right kidney with decreased enhancement since prior CT. This could represent a focus of pyelonephritis. A developing renal abscess or renal infarct are within the differential. Short-term follow-up CT is suggested. 3. Striated bilateral nephrograms. This is nonspecific but may represent pyelonephritis. 4. Cirrhotic liver with manifestations of portal hypertension including splenomegaly, moderate ascites and varices formation. 5. Moderate right and small left pleural effusions, increased in size since prior exam. 6. Cholelithiasis. ACT 112: Negative or not required by law. Electronically signed by: Que Hutchinson M.D. 07/15/2025 3:04 PM Chest X-Ray 07/16/25 16:33 EXAM: Radiograph of the Chest 1 View INDICATION: Hypoxia TECHNIQUE: Frontal and lateral views obtained. COMPARISON: 07/15/2025 FINDINGS: Lungs and pleural spaces: Increased patchy airspace disease in both lung bases. Stable very small bilateral pleural effusions and pulmonary vascular congestion. No pneumothorax. Heart: Stable large cardiac shadow. Mediastinum: Normal contour. Bones/joints: No fracture, erosion or dislocation. Soft tissues: No abnormality noted. No radiopaque foreign body noted. Tubes, lines and devices: Insert right internal jugular central venous catheter tip in the distal superior vena cava. Upper abdomen: No abnormality noted. IMPRESSION: CHF with new patchy bilateral basilar atelectasis or developing pneumonia. ACT 112: N/A Electronically signed by Radha Chappell 07-16-2025 6:53 PM Liver Ultrasound 07/19/25 08:28 US liver CLINICAL HISTORY: Concern for ascending cholangitis. COMPARISON STUDY: CT of the abdomen and pelvis with contrast July 13, 2025. CT of the abdomen and pelvis without contrast July 15, 2025. Right upper quadrant ultrasound December 10, 2023. FINDINGS: Hepatic echogenicity is increased. There is coarsening of hepatic echotexture with nodularity of the liver surface indicative of cirrhosis. No suspicious hepatic lesions are present. There is a 1.1 cm right hepatic lobe cyst. A small amount of perihepatic ascites is present. Slow flow is identified within the main portal vein consistent with portal hypertension. The main portal vein was patent on contrast enhanced CT of July 13, 2025. There is no biliary ductal dilatation. Common bile duct measures 4 mm in caliber. The common bile d uct is partially obscured. There are small gallstones within the gallbladder. There is mild gallbladder wall thickening. No sonographic Copleand sign was elicited. There is no right hydronephrosis. Pancreas is unremarkable by sonography. IMPRESSION: 1. Cirrhotic liver. No suspicious hepatic lesions. Slow flow within the main portal vein indicative of portal hypertension. Small amount of perihepatic ascites. 2. No biliary ductal dilatation. No common bile duct calculi identified although distal common bile duct obscured. 3. Cholelithiasis. Mild gallbladder wall thickening. However, no sonographic Copeland sign to strongly suggest acute cholecystitis. ACT 112: Negative or not required by law. Electronically signed by: Que Hutchinson M.D. 07/19/2025 10:13 AM Ordered Studies 07/13/25 17:22 CT abd pelvis IV con only Stat CT angio chest PE protocol Stat CT head/brain wo con Stat 07/15/25 12:48 CT Abdomen and Pelvis [CT abd pelvis wo con] Stat 07/19/25 08:28 US liver Urgent Hospital Course (1) Severe sepsis: Septic shock Acute pyelonephritis E. coli bacteremia Suspected developing renal abscess Lactic acidosis--chronic likely multifactorial due to infection, hepatorenal failure --CT ABD: New 3 cm area of altered enhancement in the upper right kidney, most likely due to pyelonephritis. Apparent mild wall thickening of the right renal pelvis, which may also be due to infection. Bilateral renal calculi and left renal cysts. Cirrhosis and portal hypertension. Splenomegaly Small to moderate amount of ascites. Small hepatic cysts . Cholelithiasis without evidence of acute cholecystitis . Unchanged foreign body within the gastric lumen. Apparent mild colonic wall thickening. This could be due to secondary edema from hypoalbuminemia, though infectious colitis or inflammatory bowel disease is also possible --Repeat CT abdomen: Nephrolithiasis, 3.7 cm hypoenhancing focus within the upper pole of the right kidney with decreased enhancement since prior CT. This could represent a focus of pyelonephritis. A developing renal abscess or renal infarct are within the differential. Cirrhotic liver with manifestations of portal hypertension including splenomegaly, moderate ascites and varices f ormation. Moderate right and small left pleural effusions, increased in size since prior exam. Cholelithiasis. --Blood Cultures:12/17: Growing E. coli --Repeat blood cultures negative to date --Urine culture: E. coli Continue IV Rocephin>> transition to Zosyn Received IV fluids Continue Levophed per ICU team Appreciate registered pharmacy technician help Poor prognosis Palliative care involved as well Plan to transfer to [facility] when accepted Decompensated cirrhosis/Hepatic encephalopathy--POA H/O MAFLD Elevated ammonia levels CT scan as above Liver USD:Cirrhotic liver. No suspicious hepatic lesions. Slow flow within the main portal vein indicative of portal hypertension. Small amount of perihepatic ascites. No biliary ductal dilatation. No common bile duct calculi identified although distal common bile duct obscured. Cholelithiasis. Mild gallbladder wall thickening. However, no sonographic Copeland sign to strongly suggest acute cholecystitis. Monitor MELD score Continue lactulose to titrate to 3-4 good bowel movements per day Low-sodium diet Appreciate GI input Needs follow-up with hepatology Dr. Dorado on discharge Avoid hepatotoxic agents as able Also started on rifaximin Hepatic function continues to worsen Requested GI to reevaluate per ICU Acute kidney injury on CKD stage III Possible Hepatorenal syndrome Avoid hepato/nephrotoxic agents as able Appreciate nephrology input Received IV diuretics with poor response Monitor I's and O's Poor candidate for dialysis per nephrology Palliative care consulted to address goals of care Nephrology following Urine output slowly improving Troponin elevation Likely due to renal dysfunction/sepsis Denies any chest pain Echo showed no wall motion abnormality Severe pulmonary hypertension Severe tricuspid regurgitation --ECHO: Right ventricle severely dilated. Right ventricle systolic function is moderately reduced. Right atrium severely dilated. Left ventricular cavity is small. EF 65 to 70%. Flattened septum consistent with RV pressure/volume overload. Severe tricuspid regurgitation. Severe pulmonary hypertension is present. Compared to prior study, no significant change. --Resume sildenafil Hyperglycemia HbA1c unreliable due to significant anemia Insulin sliding scale for now Monitor blood glucose levels Acute hypoxemic respiratory failure Nocturnal hypoxemia CTA showed no PE. Small bilateral pleural effusions, atelectasis. Continue supplemental oxygen as needed Chronic pancytopenia secondary to liver disease Anemia of chronic disease --S/P 1 unit PRBCs Monitor H&H and transfuse as needed Anemia workup reviewed Currently denies any bleeding issues Monitor CBC Vitamin D deficiency Started on vitamin D supplements Prolonged QTc Avoid QTc prolonging meds Monitor Ambulatory dysfunction Bedbound at baseline per patient Past tobacco abuse As per records Metallic foreign body gastric lumen on CT scan Thought to be metallic clip Also documented on prior imaging, records DVT Px: SCDs Re: Thrombocytopenia, history of GI bleed CODE STATUS DNI DNR--ICU team discussed with patient and patient's family who agrees Disposition [facility] as able After long discussion by ICU team with patient and patient's family, patient was thought to be better served at a tertiary care facility. Given need for possi ble CRRT, nephrostomy tube placement for renal abscess, access to evaluation by transplant team patient will be transferred to [facility] for further management. Dr.Tomeka Montoya at [facility] kindly accepted the patient for further management. Patient was informed and agrees with the plan. Informed patient's Daughter (Jeaneth) over the phone who understands and agrees with the plan. Plan to transfer once bed available. Total Time Total Time Spent Total Time Spent (In Minutes): 63 minutes Discharge Plan Discharge Items Patient Disposition: Transfer Acute Care Hospital Reason For Visit: HYPOTENSION Discharge Diagnosis: Septic shock Acute pyelonephritis E. coli bacteremia Renal abscess Decompensated cirrhosis Hepatic encephalopathy Hepatorenal syndrome Severe pulmonary hypertension Acute respiratory failure with hypoxia Pancytopenia Vitamin D deficiency Condition on Discharge: Fair Activity: Per Instructions section Exercise/Sports: As tolerated Non-emergency contact: Primary Care Provider and Specialist Call non-emergency contact if: you have any medication questions, your symptoms worsen, your pain is concerning for you and you have a fever Follow-up/Referrals: Sarah Galaviz DO [Primary Care Provider] - Diet: Carb Consistent or DM2 Addtl Attending Provider Instructions: -- Follow-up with Dr.Tomeka Montoya at [facility] for further evaluation and management Seek immediate medical attention if your symptoms reoccur or worsen Please review medication list provided on discharge for any medication changes as instructed. Please call if you have any questions or problems. You can reach a [facility] hospitalist on duty at [facility] 24 hours a day by calling [phone] [facility] [employer] S[employer] Provider Instructions: Date of Service: July 19, 2025 Current Inpatient Medications Dextrose (Dextrose 50% 50 Ml Syringe) 25 - 50 ml IV UD PRN; Protocol PRN Reason: Hypoglycemia Protocol Stop: 08/14/25 12:00 Ergocalciferol (Ergocalciferol 1250 Mcg (50,000 Units) Cap) 1,250 mcg PO Fr@0900 [facility] Stop: 08/14/25 10:59 Last Admin: 07/15/25 12:03 Dose: 1,250 mcg Ferrous Sulfate (Ferrous Sulfate 325 Mg Tab) 325 mg PO DAILY [facility] Stop: 08/13/25 08:59 Last Admin: 07/19/25 08:00 Dose: 325 mg Fluticasone Propionate (Fluticasone Propionate Na Spr 16 Gm Btl) 2 sprays NA QAM [facility] Stop: 08/13/25 08:59 Last Admin: 07/19/25 08:00 Dose: 2 sprays Folic Acid (Folic Acid 1 Mg Tab) 1 mg PO DAILY [facility] Stop: 08/13/25 08:59 Last Admin: 07/19/25 08:00 Dose: 1 mg Glucagon (Glucagon For Inj 1 Mg Vial) 1 mg SQ UD PRN; Protocol PRN Reason: Hypoglycemia Protocol Stop: 08/14/25 12:00 Glucose (Glucose 40% Gel 15 Gm Tube) 15 - 30 gm PO UD PRN; Protocol PRN Reason: Hypoglycemia Protocol Stop: 08/14/25 12:00 Glucose (Glucose 10 Tab/Tube) 4 - 8 tab PO UD PRN; Protocol PRN Reason: Hypoglycemia Protocol Stop: 08/14/25 12:00 Promethazine HCl (Phenergan) 6.25 mg in 50.25 mls @ 201 mls/hr IV Q6H PRN PRN Reason: Nausea And Vomiting Stop: 08/12/25 20:27 Last Infusion: 07/18/25 11:52 Dose: Infused Norepinephrine Bitartrate (Levophed/D5w) 4 mg in 250 mls @ 2.828 mls/hr IV .Q24H GEOFF; Protocol Stop: 08/16/25 10:14 Last Titration: 07/19/25 08:09 Dose: 0.01 mcg/kg/min, 2.8 mls/hr Piperacillin Sod/Tazobactam Sod (Zosyn) 4.5 gm in 100 mls @ 25 mls/hr IV Q8H [facility]; Protocol Stop: 08/02/25 09:59 Last Admin: 07/19/25 10:17 Dose: 25 mls/hr Insulin Aspart (Insulin Aspart Per Unit Charge) 0 units SC ACHS [facility] Stop: 08/14/25 16:29 Last Admin: 07/19/25 07:59 Dose: 1 units Lactulose (Lactulose Syrup 20 Gm/30 Ml Udc) 20 gm PO BID [facility] Stop: 08/12/25 21:44 Last Admin: 07/19/25 08:01 Dose: 20 gm Levalbuterol HCl (Levalbuterol 1.25 Mg/3 Ml Neb) 1.25 mg NEB Q6H PRN PRN Reason: Shortness Of Breath Or Wheezing Stop: 08/13/25 17:52 Last Admin: 07/16/25 19:45 Dose: 1.25 mg Miscellaneous (Carbohydrates For Hypoglycemia ) 15 - 30 gm PO UD PRN PRN Reason: Hypoglycemia Protocol Stop: 08/14/25 12:00 Multivitamins (Multivitamin Tab) 1 tab PO QAM [facility] Stop: 08/13/25 08:59 Last Admin: 07/19/25 08:01 Dose: 1 tab Pantoprazole Sodium (Pantoprazole 40 Mg Tab) 40 mg PO QAM [facility] Stop: 08/13/25 08:59 Last Admin: 07/19/25 08:01 Dose: 40 mg Rifaximin (Rifaximin 550 Mg Tablet) 550 mg PO BID [facility] Stop: 08/13/25 22:29 Last Admin: 07/19/25 08:01 Dose: 550 mg Sildenafil Citrate (Sildenafil Citrate 20 Mg Tablet) 20 mg PO TID [facility] Stop: 08/16/25 16:34 Last Admin: 07/19/25 08:02 Dose: 20 mg Pending Studies at Discharge: Yes Studies:: Blood cultures Stand-Alone Forms: [facility] Skilled Items Patient informed of condition?: Yes DNR: Yes Discharge Level of Care: Other Communicable Disease: No Discharge Prognosis: Deteriorating Lines: Peripheral IV Urinary Catheter: Yes Medications and DC Order Prescriptions: Continued multivitamin Tablet 1 tab PO QAM pantoprazole 40 mg tablet,delayed release (DR/EC) 40 mg PO QAM fluticasone propionate 50 mcg/actuation [place],Suspension 2 spray INTRANASAL QAM Rx Instructions: administer into each nostril Uptravi 200 mcg tablet 200 mcg PO TID Uptravi 200 mcg (140)- 800 mcg (60) tablets,dose pack 1 ea PO UD Rx Instructions: TITRATE PACK zinc glycinate 20 mg Capsule 20 mg PO DAILY furosemide 40 mg tablet 40 mg PO DAILY lactulose [Constulose] 10 gram/15 mL solution 30 ml PO TID sildenafil (pulm.hypertension) 20 mg tablet 40 mg PO TID vitamin A 3,000 mcg (10,000 unit) Capsule 3,000 mcg PO DAILY ferrous sulfate 325 mg (65 mg iron) Tablet 325 mg PO DAILY folic acid 1 mg tablet 1 mg PO DAILY Discharge Orders: Discharge Order (Routine); Ordered 07/19/25 Ordered By: Tai Multani Admission Data Admit Date/Time: 07/13/25 19:49 Attending Provider: Tai Multani Admit Provider: Leonel Miller Primary Care Provider: Sarah Galaviz Other Providers: Leonel Miller; Mercy Hammond; Nader Bethea; Jenna Mcgregor; Julianne Yadav; Abby Beasley; Maddy Ledbetter; Chava Nixon; Isiah Cabral; Frances Quiroz; Mishel Piedra; Maya Dyer; Lyly Potter; Luz Douglass; Favian Escalante; Rudi Matias; Bjorn De Leon; Evangelina Dorado; Des Miller Jr; Jerad Fall; Keven Dye; Walter Feng; Yany Bustamante; Maged Bernardo I; Brionna Denson; Say Tolentino; Barrera Vasquez; Clay Whitaker; Marcos Valdez; Federica Gonzales; Maya Salgado; Clarke Caceres
[2025-07-19 13:15] LABS: Hematocrit (blood only) 23.8 % (37.0-47.0); Hemoglobin 7.4 g/dl (12.0-16.0); Mean Corpuscular Hemoglobin 32.0 pg (25.0-34.0); Mean Corpuscular Volume 103.0 fL (80.0-100.0); Platelet Count 38 K/uL (130-400); RDW Standard Deviation 89.6 fL (36.4-46.3); Red Blood Count 2.31 M/uL (4.20-5.40); White Blood Count 5.76 K/ul (4.8-10.8)
[2025-07-19 13:29] LABS: Anion Gap 14.0 (3-11); Blood Urea Nitrogen 86.0 mg/dl (6-23); Calcium 9.2 mg/dl (8.6-10.3); Carbon Dioxide 19.0 mmol/L (21-32); Chloride 104.0 mmol/L (98-107); Creatinine Clr Calc Pharmacy 28.3 ml/min; Glucose 126.0 mg/dl (70-99(Fasting)); Potassium 3.0 mmol/L (3.5-5.1); Sodium 137.0 mmol/L (136-145)
[2025-07-19] MEDS: POTASSIUM CHLORIDE / WTR 20 MEQ/100 ML PLCT IV SCH (14:17)
[2025-07-20 05:14] LABS: Hematocrit (blood only) 24.6 % (37.0-47.0); Hemoglobin 7.5 g/dl (12.0-16.0); Mean Corpuscular Hemoglobin 32.1 pg (25.0-34.0); Mean Corpuscular Volume 105.1 fL (80.0-100.0); Platelet Count 40 K/uL (130-400); RDW Standard Deviation 93.0 fL (36.4-46.3); Red Blood Count 2.34 M/uL (4.20-5.40); White Blood Count 5.34 K/ul (4.8-10.8)
[2025-07-20 05:22] LABS: INR 1.6 (0.9-1.1); Prothrombin Time 16.9 Seconds (9.0-12.0)
[2025-07-20 05:33] LABS: Alanine Aminotransferase 57.0 U/L (7-52); Albumin Globulin Ratio 0.9 (0.9-2); Albumin Level 3.1 gm/dl (3.4-5.0); Alkaline Phosphatase 146.0 U/L (34-104); Anion Gap 13.0 (3-11); Bilirubin,Total 26.1 mg/dl (0.2-1.0); Blood Urea Nitrogen 82.0 mg/dl (6-23); Calcium 8.9 mg/dl (8.6-10.3); Carbon Dioxide 20.0 mmol/L (21-32); Chloride 105.0 mmol/L (98-107); Creatinine Clr Calc Pharmacy 33.7 ml/min; Globulin 3.5 gm/dl (2.5-4.0); Glucose 115.0 mg/dl (70-99(Fasting)); Magnesium 2.8 mg/dl (1.7-2.4); Potassium 2.7 mmol/L (3.5-5.1); Sodium 138.0 mmol/L (136-145); Total Protein 6.6 gm/dl (6.0-8.3)
[2025-07-20] MEDS: POTASSIUM CHLORIDE / WTR 20 MEQ/100 ML PLCT IV SCH ×2 (06:09→16:01)
--- NOTE | 2025-07-20 08:46 | Critical Care Progress Note ---
Date of Service July 20, 2025 Assessment & Plan (1) Pulmonary arterial hypertension associated with portal hypertension: (2) Septic shock: (3) Pyelonephritis: (4) Acute renal failure: (5) Hepatic encephalopathy: (6) Acute blood loss anemia: (7) Thrombocytopenia: Plan Patient is a 62-year-old female with a past medical history significant for pulmonary hypertension with RV failure, portal hypertension and cirrhosis (possible autoimmune, GENI positive, positive ASMA), history of GI bleeding secondary to variceals, chronic thrombocytopenia and CKD stage III. The patient has a complicated medical history. In November 2023 she was admitted with hypoxic respiratory failure thought to be secondary to cor pulmonale from pulmonary hypertension. She was transferred to [place] for IV prostacyclin. The stent was thought to have possible autoimmune hepatitis and had positive ASMA antibody. She also was positive for AMA and TTG IgA concerning for celiac disease and autoimmune hepatitis. This patient was discharged from [facility] with sildenafil and macitentan for her pulmonary hypertension. She underwent liver biopsy in February 2024 which showed lobular and portal inflammation with areas of fibrosis. She was admitted to our facility in March 2025 with GI bleeding and at this time was transferred to [facility]. The patient underwent EGD and was found to have 1 esophageal varices and portal hypertensive gastropathy. The patient follows with [facility] gastroenterology. She was also reportedly seen at [facility] for possible liver transplant but told she did not need a liver transplant during that visit. The patient presented to our facility again on 07/13/2025 with symptoms of dysuria, hematuria, generalized weakness and shortness of breath. Of note she had been in the emergency department on 06/25/2025 with symptomatic anemia, hemoglobin was 5, she did not have active bleeding was transfused 2 units of PRBCs in the ER and discharged home. During her current visit the patient was found to be hypotensive and hypoxic. Lactic acid was elevated. UA was concerning for UTI. CT of the abdomen and pelvis did not show evidence of hydronephrosis however bilateral nephrolithiasis was appreciated. There was a 3.7 cm focus within the upper pole of the right kidney which possibly represented a focus of pyelonephritis. Striated bilateral nephrograms were appreciated. Cirrhotic appearing liver with evidence of portal hypertension, splenomegaly and moderate ascites. Moderate right and left pleural effusions were also appreciated. Cholelithiasis was appreciated. Due to hypotension a central venous catheter was placed. Chest x-ray showed good placement, minimal blunting of both costophrenic angles concerning for pleural effusions. The patient was admitted to the ICU for further care. Gastroenterology and nephrology were consulted. Blood cultures and urine cultures grew E. coli for which the patient is receiving Rocephin. The patient's urine output did not improve. Total bilirubin continues to rise. Total bilirubin continued to rise. She was trialed on Lasix without improvement, also given albumin. On 07/18/2025 given multiorgan dysfunction with liver disease and rising bilirubin, renal dysfunction with poor urine output and worsening hypoxia with underlying pulmonary hypertension a family discussion was held. I discussed with them the overall prognosis given her multiorgan dysfunction. They requested that I speak with [facility] as the patient had previously been evaluated there for liver transplant. I spoke with [facility] hepatology, they agreed that the patient required a higher level of care and they would evaluate her when she arrived at their facility however they did not think that she would be a candidate for liver transplant given her pulmonary hypertension. I spoke with the lead fabricator also at [facility] and they agreed to accept her to their medical ICU. Overnight the patient did start having higher urine output with a goal MAP of 80 and made about 700 cc of urine. Creatinine came down slightly. Bilirubin continues to rise. Procalcitonin is increasing. Transfer center was notified of the change in her status. Has been accepted at [facility]. Reason Critically Ill: Septic shock E. coli bacteremia with E. coli UTI Pyelonephritis with possible renal abscess BRY on top of CKD Severe pulmonary hypertension Liver cirrhosis, possibly autoimmune versus secondary to pulmonary hypertension Elevated T bilirubin, concern for ascending cholangitis Acute blood loss anemia with history of GI bleeding Chronic thrombocytopenia Hepatic encephalopathy Neuro: Hepatic encephalopathy. Waxing and waning mentation. Continue lactulose. Goal is 4 loose bowel movements daily. If worsening mentation will need ABG. Cardiac: Severe underlying pulmonary hypertension with valvular disturbance. Cor pulmonale. Patient would benefit from a right heart catheter at tertiary center and consideration of prostaglandin therapy. Patient was started back on sildenafil low-dose 20 mg 3 times daily. Previously was on macitentan however per patient and family this was discontinued outpatient. Shock resolving. Norepinephrine off. Continue sildenafil. Respiratory: Hypoxic respiratory failure, requiring 3 L of oxygen improving. Likely secondary to pulmonary hypertension and pulmonary vascular congestion with pleural effusion. May have a component of hepatopulmonary syndrome. Echo was done in the emergency department upon arrival to the hospital however was done without bubble study. Continue oxygen supplementation. If oxygenation continues to deteriorate repeat imaging of the chest. 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 Biopsy in 2023 showed focal areas of fibrosis. Total bilirubin is continuing to rise. Alk phos is elevated. Liver enzymes are mildly elevated. Hepatic encephalopathy is present. Continuing lactulose and rifaximin. Has a history of GI bleeding. No active bleeding during this hospital stay. Continue pantoprazole daily. LFTs today include, but T. bili rising. Pattern of hepatocellular injury possibly from acute decompensation related to right heart failure or autoimmune hepatitis flareup. I am concerned that she may have a ascending cholangitis given her liver function analysis. I will repeat LFTs and differentiate bilirubin. Will obtain a liver ultrasound today. RENAL/LYTES: BRY on CKD. Did not respond to Lasix and albumin. Nephrology is consulted. Possible renal abscess versus infarct appreciated on CT. Has pyelonephritis. Increased urine output overnight. Seem to respond to higher MAP of 80. No indication for dialysis at this time. : Delgado catheter is in, keep in place, monitor strict I's and O's. ENDO: Blood sugar acceptable. Has been had minimal p.o. intake. Monitor glucose Q6. HEME: Anemia and thrombocytopenia. Will check haptoglobin and LDH. Hemoglobin stable. Platelets low, no active bleeding appreciated at this time. Transfusion threshold 7 or higher if there is active bleeding. ID: E. coli UTI and bacteremia. Likely secondary to pyelonephritis. Continue Zosyn due to concerns of ascending cholangitis. Feeding: Sips and chips. Fluids: No maintenance fluids Analgesia: None Activity: Bedrest, may get up to chair with PT today. Thromboprophylaxis: SCDs Ulcer prophylaxis: Pantoprazole Glycemic control: Blood glucose acceptable, monitor every 6. Bowels: Pantoprazole, lactulose Indwelling catheters: Delgado, central venous catheter Antibiotics: Zosyn Plan: Continue ICU level of care. Patient awaiting transfer to [facility] for evaluation by pulmonary hypertension experts and hepatology experts. Patient may require pulmonary vasodilators such as IP prostanoid's. I spent 41 minutes reviewing the electronic medical record/relevant imaging, 31 minutes discussing diagnosis and treatment plan with patient/family, and 10 minutes discussing care plan with ancillary staff such as RT/RN/pharmacist/mallet and die cutter/PT/OT/other consulting medical services. CRITICAL CARE TIME I have personally spent 41 minutes of critical care time in the direct management of this patient. This is a life/limb threatening event. This includes time spent evaluating patient, direct bedside care, chart review, placing orders, interpretation of diagnostic studies, discussion with consultants, patient, and family members, as well as other required patient management activities. This time is exclusive of all separately billable procedures, and teaching time and separate from and in addition to any other critical care service time. Admission and Anticipated Discharge Date Admission Date: July 13, 2025 Subjective Patient with some mild shortness of breath. Denies any chest pain or abdominal discomfort. No nausea or vomiting. Remains on low-flow oxygen. Hemodynamically stable. Urine output and creatinine improved. Review of Systems Review of Systems: All systems reviewed & are unremarkable except as noted in HPI & below Physical Exam Physical Exam: Physical examination: General: Chronically ill-appearing, resting in bed, visibly jaundiced. HEENT: JVD appreciated. Sclera are icteric. Skin: Warm extremities. Some edema is present in the lower extremities. Cardiovascular: Heart is a regular rate and rhythm, no murmurs appreciated on my exam. JVD appreciated. Edema of lower extremities. Remains on Levophed. Lungs: Crackles at bases. No wheezing. On 3 L via nasal cannula. Abdomen: Nontender to palpation. No masses appreciated. No pain to percussion of costophrenic angles. Musculoskeletal: Normal muscle mass and tone. Neurologic: Awake and alert. Falls asleep easily. Waxing and waning mentation. Speech is fluent. Forgetful at times. Moving all extremities. Psychiatric: Appropriate cooperative during my exam. Results & Data Results & Data Vital Signs (Past 12 Hours) Vital Signs Temp Pulse Resp BP Pulse Ox 07/20/25 06:12 36.7 C 81 23 90 07/20/25 06:04 109/71 07/20/25 05:36 36.8 C 83 23 96 07/20/25 05:09 36.8 C 79 20 94 11/05/25 04:39 105/71 07/20/25 04:30 36.7 C 81 18 90 07/20/25 04:09 36.8 C 77 22 95 07/20/25 04:08 98/65 L 07/20/25 03:50 103/76 07/20/25 03:45 36.8 C 80 22 94 07/20/25 03:13 108/73 07/20/25 03:12 36.8 C 82 23 95 07/20/25 02:33 36.4 C L 88 16 90 07/20/25 02:00 36.9 C 84 21 91 07/20/25 02:00 110/77 07/20/25 01:48 36.8 C 85 24 94 07/20/25 01:12 36.8 C 85 20 93 07/20/25 01:02 101/75 07/20/25 00:35 106/70 07/20/25 00:33 36.8 C 86 22 93 07/20/25 00:03 36.8 C 85 21 92 07/20/25 00:00 77 07/20/25 00:00 89/65 L 07/19/25 23:33 36.8 C 85 21 94 07/19/25 23:24 36.8 C 83 21 93 07/19/25 23:00 92/62 L 07/19/25 22:39 36.8 C 86 20 90 07/19/25 22:08 101/61 07/19/25 22:06 36.8 C 87 24 90 07/19/25 21:30 36.8 C 83 22 91 07/19/25 21:11 94/58 L 07/19/25 21:03 36.8 C 82 22 93 Coding Level of Care Code 22933 CRITICAL CARE 1ST 30-74M Diagnoses Pulmonary arterial hypertension associated with portal hypertension I27.21; K76.6 Septic shock A41.9; R65.21 Pyelonephritis N12 Acute renal failure, unspecified acute renal failure type N17.9 Acute renal failure type: unspecified Hepatic encephalopathy K76.82 Acute blood loss anemia D62 Thrombocytopenia D69.6 (4) Acute renal failure Acute renal failure type: unspecified Qualified Code(s): N17.9 - Acute kidney failure, unspecified
--- NOTE | 2025-07-20 09:21 | Nephrology Progress Note ---
Date of Service July 20, 2025 Assessment & Plan Admission and Anticipated Discharge Date Admission Date: July 13, 2025 Subjective Assessment & Plan (1) Acute renal failure: Plan: worsening Oliguric Stage 3 BRY in the setting of underlying /chronic right heart failure from severe pulmonary hypertension and advanced/complex liver disease. Baseline creatinine is 0.7-0.9. Presented w/ creatinine 1.7 on 07/13 in the evening; up to 2.5 today. Etiologies include IV contrast exposure, septic shock, pyelonephritis, worsening heart failure/cardiorenal syndrome in addition to underlying cirrhosis. 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 K is low now . had 20 meq iv but will need a lot more so give another 80 meq PO needs to continue strict I/O She does not need dialysis today. (2) Shock: Plan: combined septic and ?cardiac >> continue Levophed as needed. Defer to ICU (3) Sepsis: Plan: continue antibiotics renally dosed. +E coli septicemia Subjective Seen for BRY/HRS. Labs better . made lot more urine. Looks lot better Review of Systems Review of Systems: All other systems were reviewed and negative except as noted in HPI Physical Exam Physical Exam: General exam: Appears comfortable, no acute distress HEENT: deep jaundice Neck: No JVD Respiratory system: Clear breath sounds bilaterally Gastrointestinal: Abdomen is soft, non distended, non tender, bowel sounds are present CVS: Regular rate and rhythm. No murmurs, rubs or gallops Extremities: Non tender, no edema, peripheral pulses are present Skin: No rashes, deep jaundice Results & Data Vital Signs (Past 12 Hours) Vital Signs Temp Pulse Resp BP BP Pulse Ox Pulse Ox 07/20/25 09:00 36.8 C 88 22 115/71 91 07/20/25 08:30 36.8 C 83 19 94 07/20/25 08:00 36.7 C 86 39 H 97/69 L 92 07/20/25 08:00 87 07/20/25 07:48 36.7 C 82 30 H 92 07/20/25 07:09 36.7 C 81 20 95/70 L 94 07/20/25 07:00 94 07/20/25 06:12 36.7 C 81 23 90 07/20/25 06:04 109/71 07/20/25 05:36 36.8 C 83 23 96 07/20/25 05:09 36.8 C 79 20 94 07/20/25 04:39 105/71 07/20/25 04:30 36.7 C 81 18 90 07/20/25 04:09 36.8 C 77 22 95 07/20/25 04:08 98/65 L 07/20/25 03:50 103/76 07/20/25 03:45 36.8 C 80 22 94 07/20/25 03:13 108/73 07/20/25 03:12 36.8 C 82 23 95 07/20/25 02:33 36.4 C L 88 16 90 07/20/25 02:00 36.9 C 84 21 91 07/20/25 02:00 110/77 07/20/25 01:48 36.8 C 85 24 94 07/20/25 01:12 36.8 C 85 20 93 07/20/25 01:02 101/75 07/20/25 00:35 106/70 07/20/25 00:33 36.8 C 86 22 93 07/20/25 00:03 36.8 C 85 21 92 07/20/25 00:00 77 07/20/25 00:00 89/65 L 07/19/25 23:33 36.8 C 85 21 94 07/19/25 23:24 36.8 C 83 21 93 07/19/25 23:00 92/62 L 07/19/25 22:39 36.8 C 86 20 90 07/19/25 22:08 101/61 07/19/25 22:06 36.8 C 87 24 90 07/19/25 21:30 36.8 C 83 22 91 O2 Del Method O2 Del Method O2 Flow Rate O2 Flow Rate 07/20/25 09:00 Nasal Cannula 2 07/20/25 08:30 07/20/25 08:00 07/20/25 08:00 07/20/25 07:48 07/20/25 07:09 07/20/25 07:00 Nasal Cannula 2 07/20/25 06:12 07/20/25 06:04 07/20/25 05:36 07/20/25 05:09 07/20/25 04:39 07/20/25 04:30 07/20/25 04:09 07/20/25 04:08 07/20/25 03:50 07/20/25 03:45 07/20/25 03:13 07/20/25 03:12 07/20/25 02:33 07/20/25 02:00 07/20/25 02:00 07/20/25 01:48 07/20/25 01:12 07/20/25 01:02 07/20/25 00:35 07/20/25 00:33 07/20/25 00:03 07/20/25 00:00 07/20/25 00:00 07/19/25 23:33 07/19/25 23:24 07/19/25 23:00 07/19/25 22:39 07/19/25 22:08 07/19/25 22:06 07/19/25 21:30
[2025-07-20] MEDS: POTASSIUM CHLORIDE CRTAB 20 MEQ TABCR PO STA (10:20)
--- NOTE | 2025-07-20 11:35 | Hospitalist Progress Note ---
Date of Service July 20, 2025 Assessment & Plan (1) Severe sepsis: Plan: Septic shock Acute pyelonephritis E. coli bacteremia Possible right renal abscess Patient presents to the hospital with septic shock secondary to E. coli rosa teremia. CT abdomen/pelvis on admission shows possible abscess in upper pole of right kidney. Blood culture on out of 4 positive for E. coli Repeat blood culture from 07/15no growth Improvement in hemodynamic status; off vasopressors since a.m. of July 20, 2025 Continue on ceftriaxone Decompensated cirrhosis/Hepatic encephalopathy--POA H/O MASLD Liver USD:Cirrhotic liver. No suspicious hepatic lesions. Slow flow within the main portal vein indicative of portal hypertension. Small amount of perihepatic ascites. No biliary ductal dilatation. No common bile duct calculi identified although distal common bile duct obscured. Cholelithiasis. Mild gallbladder wall thickening. However, no sonographic Copeland sign to strongly suggest acute cholecystitis. Total bilirubin in mid 20s; elevated ALT/AST/ALP GI consulted for comanagement; deterioration of hepatic function likely secondary to multiorgan dysfunction Plan to obtain MRCP Continue lactulose to titrate to 3-4 good bowel movements per day Also started on rifaximin Low-sodium diet Needs follow-up with hepatology Dr. Dorado on discharge Avoid hepatotoxic agents as able Acute kidney injury on CKD stage III Possible Hepatorenal syndrome Creatinine up trended to 2.51 and is currently downtrending Nephrology on board Monitor kidney funtion Hypokalemiapotassium repleted Troponin elevation Likely due to renal dysfunction/sepsis Denies any chest pain Echo showed no wall motion abnormality Severe pulmonary hypertension Severe tricuspid regurgitation --ECHO: Right ventricle severely dilated. Right ventricle systolic function is moderately reduced. Right atrium severely dilated. Left ventricular cavity is small. EF 65 to 70%. Flattened septum consistent with RV pressure/volume overload. Severe tricuspid regurgitation. Severe pulmonary hypertension is present. Compared to prior study, no significant change. --Resume sildenafil Hyperglycemia HbA1c unreliable due to significant anemia Insulin sliding scale for now Monitor blood glucose levels Acute hypoxemic respiratory failure Nocturnal hypoxemia CTA showed no PE. Small bilateral pleural effusions, atelectasis. Continue supplemental oxygen as needed Chronic pancytopenia secondary to liver disease Anemia of chronic disease --S/P 1 unit PRBCs Monitor H&H and transfuse as needed Vitamin D deficiency Started on vitamin D supplements Prolonged QTc Avoid QTc prolonging meds Monitor Past tobacco abuse As per records Metallic foreign body gastric lumen on CT scan Thought to be metallic clip Also documented on prior imaging, records DVT Px: SCDs Re: Thrombocytopenia, history of GI bleed CODE STATUS DNI DNR--ICU team discussed with patient and patient's family who agrees Disposition [facility] as able as per prior hospitalist from 07/19/2025- After long discussion by ICU team with patient and patient's family, patient was thought to be better served at a tertiary care facility. Given need for possible CRRT, nephrostomy tube placement for renal abscess, access to evaluation by transplant team patient will be transferred to [facility] for further management. Dr.Tomeka Montoya at [facility] kindly accepted the patient for further management. Patient was informed and agrees with the plan. Informed patient's Daughter (Jeaneth) over the phone who understands and agrees with the plan. Plan to transfer once bed available. Time spent evaluating patient, direct bedside care, chart review, placing orders, interpretation of diagnostic studies, discussion with consultants, patient, and family members, as well as other required patient management activities is 50 minutes Please note the above document was generated using voice recognition software. It may contain grammatical, syntax or spelling errors. Any formal questions or concerns about the content, text or information contained within the body of this dictation should be directly addressed to the provider for clarification Admission and Anticipated Discharge Date Admission Date: July 13, 2025 Subjective Patient seen and examined at bedside. She is sitting up on the chair at the side of the bed; appears comfortable. Reports that she is feeling weak. Urine output improving. Review of Systems Review of Systems: All systems reviewed & are unremarkable except as noted in Subjective Physical Exam Physical Exam: Constitutional: Sitting up; appears comfortable. Icteric Respiratory: Decreased breath sounds at bilateral bases Cardiovascular: RRR, positive murmur, no edema Vessels: Abdomen: Slightly distended, nontender. Musculoskeletal: no cyanosis or clubbing, extremities motor strength 5/5 Neurologic: PERRL, EOMI, accommodation nl, no face palsy, no dysarthria CN's II- XI intact bilaterally and moves all extremities Results & Data Results & Data Vital Signs (Past 12 Hours) Vital Signs Temp Pulse Resp BP BP Pulse Ox Pulse Ox 07/20/25 09:20 07/20/25 09:00 36.8 C 88 22 115/71 91 07/20/25 08:30 36.8 C 83 19 94 07/20/25 08:00 36.7 C 86 39 H 97/69 L 92 07/20/25 08:00 87 07/20/25 07:48 36.7 C 82 30 H 92 07/20/25 07:09 36.7 C 81 20 95/70 L 94 07/20/25 07:00 94 07/20/25 06:12 36.7 C 81 23 90 07/20/25 06:04 109/71 07/20/25 05:36 36.8 C 83 23 96 07/20/25 05:09 36.8 C 79 20 94 07/20/25 04:39 105/71 07/20/25 04:30 36.7 C 81 18 90 07/20/25 04:09 36.8 C 77 22 95 07/20/25 04:08 98/65 L 07/20/25 03:50 103/76 07/20/25 03:45 36.8 C 80 22 94 07/20/25 03:13 108/73 07/20/25 03:12 36.8 C 82 23 95 07/20/25 02:33 36.4 C L 88 16 90 07/20/25 02:00 36.9 C 84 21 91 07/20/25 02:00 110/77 07/20/25 01:48 36.8 C 85 24 94 07/20/25 01:12 36.8 C 85 20 93 07/20/25 01:02 101/75 07/20/25 00:35 106/70 07/20/25 00:33 36.8 C 86 22 93 07/20/25 00:03 36.8 C 85 21 92 07/20/25 00:00 77 07/20/25 00:00 89/65 L 07/19/25 23:33 36.8 C 85 21 94 O2 Del Method O2 Del Method O2 Flow Rate O2 Flow Rate 07/20/25 09:20 Nasal Cannula 2 07/20/25 09:00 Nasal Cannula 2 07/20/25 08:30 07/20/25 08:00 07/20/25 08:00 07/20/25 07:48 07/20/25 07:09 07/20/25 07:00 Nasal Cannula 2 07/20/25 06:12 07/20/25 06:04 07/20/25 05:36 07/20/25 05:09 07/20/25 04:39 07/20/25 04:30 07/20/25 04:09 07/20/25 04:08 07/20/25 03:50 07/20/25 03:45 07/20/25 03:13 07/20/25 03:12 07/20/25 02:33 07/20/25 02:00 07/20/25 02:00 07/20/25 01:48 07/20/25 01:12 07/20/25 01:02 07/20/25 00:35 07/20/25 00:33 07/20/25 00:03 07/20/25 00:00 07/20/25 00:00 07/19/25 23:33
--- NOTE | 2025-07-20 12:53 | Magnetic Resonance Report ---
MRCP CLINICAL HISTORY: Generalized abdominal pain. Clinical concern for ascending cholangitis. Jaundice. COMPARISON STUDY: Abdominal CT dated 07/15/2025. Abdominal ultrasound dated 07/19/2025. TECHNIQUE: MRCP was attempted. The patient was dyspneic and unable to tolerate the procedure. 2 sever zheng motion compromised axial T2-weighted sequences were obtained. These are of limited diagnostic uti lity. FINDINGS: There are right larger than left pleural effusions with dependent consolidation. The heart is enlarge d. There is body wall edema. A small volume of ascites is seen in the upper abdomen. The liver and spleen appear enlarged. The gallbladder is contracted and not well evaluated. There is no intra or extrahepatic biliary ductal dilatation. Left renal cysts are noted. There is no hydroneph rosis. The abdominal aorta is normal in caliber. There is no evidence of bowel obstruction. IMPRESSION: 1. Severely motion compromised and incomplete examination. The acquired images are of limited diagnos tic utility. 2. Small pleural effusions with dependent consolidation. 3. Cardiomegaly. 4. Body wall edema and small volume ascites. 5. Hepatosplenomegaly. 6. There is no intra or extrahepatic biliary duct dilatation. The biliary tree cannot be further asse ssed on the acquired images. Electronically signed by: Caden Mueller M.D. 07/20/2025 12:52 PM
[2025-07-20] MEDS: POTASSIUM CHLORIDE CRTAB 20 MEQ TABCR PO ONE (13:24)
--- NOTE | 2025-07-20 15:47 | Ultrasound Report ---
ULTRASOUND KIDNEYS AND BLADDER CLINICAL HISTORY: Follow-up renal abscess. COMPARISON STUDY: Abdominal CT dated 07/15/2025. TECHNIQUE: Portable real-time grayscale and color flow sonography of the kidneys and bladder is perfo rmed. Images are reviewed in the transverse and longitudinal planes. FINDINGS: Kidneys: The kidneys are normal in size and echotexture. The right kidney measures 11.3 x 5.4 x 5.3 c m and the left kidney measures 10.1 x 5.0 x 6.0 cm. There is no hydronephrosis. 6 minor calculus as suggested on the left. No shadowing renal calculi are clearly seen on the right. Left renal cysts dylan sure up to 2.3 cm. No fluid collection is seen in the right kidney by ultrasound. There is no sonogra phic evidence of contour deforming renal mass lesion. No perinephric fluid is identified. Bladder: The bladder is largely decompressed around a Delgado catheter and not well evaluated. Upper abdomen: There is abdominopelvic ascites. Hepatic echotexture is heterogeneous. IMPRESSION: 1. The kidneys are normal in size and without hydronephrosis. 2. No right renal fluid collection is identified by ultrasound to suggest abscess. 3. Abdominopelvic ascites. 4. The bladder is decompressed around a Delgado catheter and not well evaluated. 5. Suspect left-sided nephrolithiasis. ACT 112: Negative or not required by law. Electronically signed by: Caden Mueller M.D. 07/20/2025 3:45 PM
[2025-07-20] MEDS ORDERED: VANCOMYCIN CONSULT ACTIVE PRN (20:19)
[2025-07-20] MEDS: POTASSIUM CHLORIDE / WTR 20 MEQ/100 ML PLCT IV ONE (20:33)
[2025-07-20] MEDS: VANCOMYCIN HCL 1,500 MG in SODIUM CHLORIDE 0.9% 500 ML IV STA (20:33)
[2025-07-20 21:40] LABS: Chlamydia pneumoniae PCR Not Detected (NotDetected); Coronavirus 229E PCR Not Detected (NotDetected); Coronavirus CoV-2 (COVID19)PCR Not Detected (NotDetected); Coronavirus HKU1 PCR Not Detected (NotDetected); Coronavirus NL63 PCR Not Detected (NotDetected); Coronavirus OC43PCR Not Detected (NotDetected); Human Metapneumovirus PCR Not Detected (NotDetected); Parainfluenza Virus 1 PCR Not Detected (NotDetected); Parainfluenza Virus 2 PCR Not Detected (NotDetected); Parainfluenza Virus 3 PCR Not Detected (NotDetected); Parainfluenza Virus 4 PCR Not Detected (NotDetected); Respiratory Syncytial VirusPCR Not Detected (NotDetected); Rhinovirus/Enterovirus PCR Not Detected (NotDetected)
[2025-07-20] MEDS: DOXYCYCLINE HYCLATE 100 MG in DEXTROSE 5% MINI-B 100 ML IV SCH (21:46)
--- NOTE | 2025-07-20 22:32 | XRay Report ---
Exam(s): XR CXR 1 VIEW EXAM: XR Chest, 1 View CLINICAL HISTORY: Reason for exam: sob. TECHNIQUE: Frontal view of the chest. COMPARISON: 07/16/2025 FINDINGS: Lungs: Development of moderate scattered hazy infiltrates throughout both upper lobes in the left lower lobe. New or increased since previous. Pleural space: Unremarkable. No pneumothorax. Heart: The cardiac silhouette is mildly enlarged, unchanged. Mediastinum: Unremarkable. Normal mediastinal contour. Bones/joints: Unremarkable. No acute fracture. Tubes, lines and devices: There is a right internal jugular central venous catheter with the tip in the superior vena cava, unchanged. Upper abdomen: Unremarkable as visualized. No pneumoperitoneum under the diaphragm. IMPRESSION: 1. Development of moderate scattered hazy infiltrates throughout both upper lobes and the left lower lobe. New or increased since previous. 2. There is a right internal jugular central venous catheter with the tip in the superior vena cava, unchanged. 3. The cardiac silhouette is mildly enlarged, unchanged. Electronically signed by: Tino Adams MD 07/20/25 22:31 PM
[2025-07-21] MEDS ORDERED: VANCOMYCIN HCL / NSS 1,000 MG/270 ML BAG IV SCH (04:00)
[2025-07-21 05:31] LABS: Hematocrit (blood only) 24.9 % (37.0-47.0); Hemoglobin 7.4 g/dl (12.0-16.0); Immature Granulocytes # (auto) 0.15 K/uL (0.01-0.20); Immature Granulocytes % (auto) 3.1 %; Mean Corpuscular Hemoglobin 31.4 pg (25.0-34.0); Mean Corpuscular Volume 105.5 fL (80.0-100.0); Platelet Count 42 K/uL (130-400); Polychromasia 1+; RDW Standard Deviation 93.6 fL (36.4-46.3); Red Blood Count 2.36 M/uL (4.20-5.40); Tear Drop Cells 1+; White Blood Count 4.88 K/ul (4.8-10.8)
[2025-07-21 05:39] LABS: Anion Gap 10.0 (3-11); Blood Urea Nitrogen 60.0 mg/dl (6-23); Calcium 9.0 mg/dl (8.6-10.3); Carbon Dioxide 23.0 mmol/L (21-32); Chloride 109.0 mmol/L (98-107); Creatinine Clr Calc Pharmacy 40.1 ml/min; Glucose 140.0 mg/dl (70-99(Fasting)); Magnesium 2.6 mg/dl (1.7-2.4); Potassium 2.9 mmol/L (3.5-5.1); Sodium 142.0 mmol/L (136-145)
[2025-07-21] MEDS ORDERED: POTASSIUM CHLORIDE / WTR 10 MEQ/100 ML PLCT IV SCH (05:45)
[2025-07-21] MEDS ORDERED: Nursing to Pharmacy Communication SCH (06:00)
[2025-07-21] MEDS: POTASSIUM CHLORIDE / WTR 20 MEQ/100 ML PLCT IV ONE ×2 (06:04→08:32)
[2025-07-21] MEDS: POTASSIUM CHLORIDE 20 MEQ/15 ML UDC PO STA (06:04)
[2025-07-21 10:05] VITALS: TEMP 98.1
--- NOTE | 2025-07-21 11:06 | Pulmonology Progress Note ---
Date of Service July 21, 2025 Assessment & Plan (1) Pulmonary arterial hypertension associated with portal hypertension: (2) Septic shock: (3) Pyelonephritis: (4) Acute renal failure: Acute renal failure type: unspecified Qualified Code(s): N17.9 - Acute kidney failure, unspecified (5) Hepatic encephalopathy: (6) Acute blood loss anemia: (7) Thrombocytopenia: Plan Patient is a 62-year-old female with a past medical history significant for pulmonary hypertension with RV failure, portal hypertension and cirrhosis (possible autoimmune, GENI positive, positive ASMA), history of GI bleeding secondary to variceals, chronic thrombocytopenia and CKD stage III. The patient has a complicated medical history. In November 2023 she was admitted with hypoxic respiratory failure thought to be secondary to cor pulmonale from pulmonary hypertension. She was transferred to [facility] for IV prostacyclin. The stent was thought to have possible autoimmune hepatitis and had positive ASMA antibody. She also was positive for AMA and TTG IgA concerning for celiac disease and autoimmune hepatitis. This patient was discharged from [facility] with sildenafil and macitentan for her pulmonary hypertension. She underwent liver biopsy in February 2024 which showed lobular and portal inflammation with areas of fibrosis. She was admitted to our facility in March 2025 with GI bleeding and at this time was transferred to [facility]. The patient underwent EGD and was found to have 1 esophageal varices and portal hypertensive gastropathy. The patient follows with [facility] gastroenterology. She was also reportedly seen at [facility] for possible liver transplant but told she did not need a liver transplant during that visit. The patient presented to our facility again on 07/13/2025 with symptoms of dysuria, hematuria, generalized weakness and shortness of breath. Of note she had been in the emergency department on 06/25/2025 with symptomatic anemia, hemoglobin was 5, she did not have active bleeding was transfused 2 units of PRBCs in the ER and discharged home. During her current visit the patient was found to be hypotensive and hypoxic. Lactic acid was elevated. UA was concerning for UTI. CT of the abdomen and pelvis did not show evidence of hydronephrosis however bilateral nephrolithiasis was appreciated. There was a 3.7 cm focus within the upper pole of the right kidney which possibly represented a focus of pyelonephritis. Striated bilateral nephrograms were appreciated. Cirrhotic appearing liver with evidence of portal hypertension, splenomegaly and moderate ascites. Moderate right and left pleural effusions were also appreciated. Cholelithiasis was appreciated. Due to hypotension a central venous catheter was placed. Chest x-ray showed good placement, minimal blunting of both costophrenic angles concerning for pleural effusions. The patient was admitted to the ICU for further care. Gastroenterology and nephrology were consulted. Blood cultures and urine cultures grew E. coli for which the patient is receiving Rocephin. The patient's urine output did not improve. Total bilirubin continues to rise. Total bilirubin continued to rise. She was trialed on Lasix without improvement, also given albumin. On 07/18/2025 given multiorgan dysfunction with liver disease and rising bilirubin, renal dysfunction with poor urine output and worsening hypoxia with underlying pulmonary hypertension a family discussion was held. I discussed with them the overall prognosis given her multiorgan dysfunction. They requested that I speak with [facility] as the patient had previously been evaluated there for liver transplant. I spoke with [facility] hepatology, they agreed that the patient required a higher level of care and they would evaluate her when she arrived at their facility however they did not think that she would be a candidate for liver transplant given her pulmonary hypertension. I spoke with the electrical repairer also at [facility] and they agreed to accept her to their medical ICU. Overnight the patient did start having higher urine output with a goal MAP of 80 and made about 700 cc of urine. Creatinine came down slightly. Bilirubin co ntinues to rise. Procalcitonin is increasing. Transfer center was notified of the change in her status. Has been accepted at [facility] awaiting bed. The patient's urine output continues to improve. Blood pressure also improved. She was able to be weaned off of vasopressors. Was transferred out of the ICU. Unfortunately her transfer was canceled to [facility] because her renal function had improved. Underwent ultrasounding of the kidneys, it was determined that the abscess on her kidney was too small to drain and they were just to continue antibiotics. Problem list: Severe pulmonary hypertension Liver fibrosis, history of autoimmune hepatitis Hepatopulmonary syndrome Hepatic encephalopathy BRY on CKD Septic shock secondary to pyelonephritis and bacteremia (E. coli), resolved Recommendation/plan: Severe underlying pulmonary hypertension with valvular disturbance. Cor pulmonale. Patient would benefit from a right heart catheter at tertiary center and consideration of prostaglandin therapy. Patient was started back on sildenafil low-dose 20 mg 3 times daily. Previously was on macitentan however per patient and family this was discontinued outpatient. 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 Biopsy in 2023 showed focal areas of fibrosis. Is not a candidate for liver transplant at this time due to her uncontrolled pu lmonary hypertension. May have a component of hepatopulmonary syndrome. Echo was done in the emergency department upon arrival to the hospital however was done without bubble study. Oxygenation is improving, on 2 L of oxygen. Continuing lactulose and rifaximin. Gastroenterology evaluated her, had liver ultrasound, they are less concerned about ascending cholangitis. Will obtain liver profile, INR and ammonia level today. On doxycycline and Zosyn. New infiltrates on x-ray. ESR and CRP are slightly elevated. LDH is only mildly elevated. Oxygenation is improving however. Pro-Rick is also coming down. Her most recent x-ray had been on 07/16/2025 which did not show these, unclear how long these infiltrates have been present. Less likely alveolar hemorrhage given that her thrombocytopenia has not worsened. We did a send a noninvasive fungal workup. Will continue to monitor, will consider repeat CT of the chest without contrast. Given the patient's severe underlying pulmonary hypertension and liver dysfunction I would recommend she still be transferred to higher level of care for pulmonary hypertension and hepatology specialist. I have discussed this with the primary physician and they are going to reach out to the transfer center. Thank you for this consult. I will follow with you. Admission and Anticipated Discharge Date Admission Date: July 13, 2025 Subjective Patient appears to be doing better this morning. She has remained off of norepinephrine. Still making good urine. Renal function continues to improve. On nasal cannula 2 L. Nontachypneic. Got out of bed this morning. She says that it was difficult but she did not feel as though she was going to have syncope. Tolerating diet. Mentation is a bit better today. Patient had episode of hypoxia last night. Chest x-ray was ordered. This shows new bilateral upper lung field infiltrates. Review of Systems Review of Systems: Denies abdominal pain. Denies nausea. Denies headache. Physical Exam Physical Exam: Physical examination: General: Chronically ill-appearing, resting in bed, visibly jaundiced. HEENT: JVD appreciated. Sclera are icteric. Skin: Warm extremities. Some edema is present in the lower extremities. Cardiovascular: Heart is a regular rate and rhythm, no murmurs appreciated on my exam. JVD appreciated. Edema of lower extremities. Remains on Levophed. Lungs: Crackles at bases. No wheezing. On 2 L via nasal cannula. Abdomen: Nontender to palpation. No masses appreciated. No pain to percussion of costophrenic angles. Musculoskeletal: Normal muscle mass and tone. Neurologic: Awake and alert. Mentation is improving. Speech is fluent. Psychiatric: Appropriate cooperative during my exam. Results & Data Results & Data Vital Signs (Past 12 Hours) Vital Signs Temp Pulse Resp BP Pulse Ox O2 Del Method O2 Flow Rate 07/21/25 10:00 36.7 C 67 21 94/64 L 94 Nasal Cannula 2 07/21/25 09:59 36.8 C 07/21/25 08:42 36.7 C 74 22 102/72 94 Nasal Cannula 07/21/25 07:00 36.7 C 79 23 103/73 94 07/21/25 06:32 36.7 C 76 21 90 07/21/25 06:02 36.7 C 75 21 93 07/21/25 06:00 103/74 07/21/25 06:00 103/74 07/21/25 06:00 103/74 07/21/25 06:00 103/74 07/21/25 06:00 103/74 07/21/25 05:59 36.7 C 77 23 93 07/21/25 05:32 36.6 C 85 24 90 07/21/25 05:30 107/71 07/21/25 05:30 107/71 07/21/25 05:30 107/71 07/21/25 05:30 107/71 07/21/25 05:30 107/71 07/21/25 05:29 36.7 C 78 21 91 07/21/25 05:00 112/75 07/21/25 05:00 112/75 07/21/25 05:00 112/75 07/21/25 05:00 112/75 07/21/25 05:00 112/75 07/21/25 05:00 36.6 C 73 22 92 07/21/25 04:30 36.6 C 69 18 96 07/21/25 04:30 94/60 L 07/21/25 04:30 94/60 L 07/21/25 04:30 94/60 L 07/21/25 04:30 94/60 L 07/21/25 04:30 94/60 L 07/21/25 04:03 36.6 C 68 18 98 07/21/25 04:00 95/61 L 07/21/25 04:00 95/61 L 07/21/25 04:00 95/61 L 07/21/25 04:00 95/61 L 07/21/25 04:00 95/61 L 07/21/25 03:59 36.6 C 70 18 97 07/21/25 03:30 36.6 C 75 17 97 07/21/25 03:30 97/69 L 07/21/25 03:30 97/69 L 07/21/25 03:30 97/69 L 07/21/25 03:30 97/69 L 07/21/25 03:30 97/69 L 07/21/25 03:00 36.6 C 77 21 95 07/21/25 03:00 107/71 07/21/25 03:00 107/71 07/21/25 03:00 107/71 07/21/25 03:00 107/71 07/21/25 03:00 107/71 07/21/25 02:30 120/82 07/21/25 02:30 120/82 07/21/25 02:30 120/82 07/21/25 02:30 120/82 07/21/25 02:30 36.7 C 78 22 95 07/21/25 02:30 120/82 07/21/25 02:30 120/82 07/21/25 02:00 115/78 07/21/25 02:00 36.7 C 78 23 95 07/21/25 02:00 115/78 07/21/25 02:00 115/07/21/25 02:00 115/78 07/21/25 02:00 115/07/21/25 01:30 36.7 C 78 24 94 07/21/25 01:30 116/75 07/21/25 01:30 116/75 07/21/25 01:30 116/75 07/21/25 01:30 116/75 07/21/25 01:30 116/75 07/21/25 01:03 36.7 C 80 17 94 07/21/25 01:00 110/78 07/21/25 01:00 110/78 07/21/25 01:00 110/78 07/21/25 01:00 110/78 07/21/25 01:00 110/78 07/21/25 00:57 36.7 C 78 21 93 07/21/25 00:30 36.7 C 77 22 93 07/21/25 00:30 98/66 L 07/21/25 00:30 98/66 L 07/21/25 00:30 98/66 L 07/21/25 00:30 98/66 L 07/21/25 00:30 98/66 L 07/21/25 00:00 77 07/21/25 00:00 110/70 07/21/25 00:00 110/70 07/21/25 00:00 110/70 07/21/25 00:00 110/70 07/21/25 00:00 110/70 07/21/25 00:00 110/70 07/21/25 00:00 36.8 C 78 21 95 07/20/25 23:30 36.8 C 84 22 92 07/20/25 23:30 114/77 07/20/25 23:30 114/77 07/20/25 23:30 114/77 07/20/25 23:30 114/77 07/20/25 23:30 114/77 07/20/25 23:00 36.8 C 77 21 94 07/20/25 23:00 105/72 07/20/25 23:00 10507/20/25 23:00 105/72 07/20/25 23:00 105/72 07/20/25 23:00 105/72 PG Care Time/CCT Total # of Minutes Spent Total Time Spent with Patient: Total time spent is greater than 50% in coordination of care (as documented) at patient's floor/unit and/or counseling patient: Coding [place] [address] SUB INP/OBS CARE 3/50MIN Patient Type Established History Comprehensive Exam Comprehensive Medical Decision Making High Complexity Diagnoses Pulmonary arterial hypertension associated with portal hypertension I27.21; K76.6 Septic shock A41.9; R65.21 Pyelonephritis N12 Acute renal failure, unspecified acute renal failure type N17.9 Acute renal failure type: unspecified Hepatic encephalopathy K76.82 Acute blood loss anemia D62 Thrombocytopenia D69.6
--- NOTE | 2025-07-21 11:55 | Nephrology Progress Note ---
Date of Service July 21, 2025 Assessment & Plan Admission and Anticipated Discharge Date Admission Date: July 13, 2025 Subjective Assessment & Plan (1) Acute renal failure: Plan: worsening Oliguric Stage 3 BRY in the setting of underlying /chronic right heart failure from severe pulmonary hypertension and advanced/complex liver disease. Baseline creatinine is 0.7-0.9. Presented w/ creatinine 1.7 on 07/13 in the evening; up to 2.5 today. Etiologies include IV contrast exposure, septic shock, pyelonephritis, worsening heart failure/cardiorenal syndrome in addition to underlying cirrhosis. monitor BMP keep hgb > 7.5 her urine Output did pick remover a lot yesterday to 1900 ml and creat actually went further down so there is Confirmed renal reovery. 2000 ml urine without lasix . K is low now . continue iv kcl through central line needs to continue strict I/O. BUN and creat even better today (2) Shock: Plan: combined septic and ?cardiac >> continue Levophed as needed. Defer to ICU (3) Sepsis: Plan: continue antibiotics renally dosed. +E coli septicemia Subjective Seen for BRY/HRS. Labs better . made lot more urine. Looks lot better Review of Systems Review of Systems: All other systems were reviewed and negative except as noted in HPI Physical Exam Physical Exam: General exam: Appears comfortable, no acute distress HEENT: deep jaundice Neck: No JVD Respiratory system: Clear breath sounds bilaterally Gastrointestinal: Abdomen is soft, non distended, non tender, bowel sounds are present CVS: Regular rate and rhythm. No murmurs, rubs or gallops Extremities: Non tender, no edema, peripheral pulses are present Skin: No rashes, deep jaundice Results & Data Vital Signs (Past 12 Hours) Vital Signs Temp Pulse Resp BP Pulse Ox O2 Del Method O2 Flow Rate 07/21/25 10:00 36.7 C 67 21 94/64 L 94 Nasal Cannula 2 07/21/25 09:59 36.8 C 07/21/25 08:42 36.7 C 74 22 102/72 94 Nasal Cannula 07/21/25 07:00 36.7 C 79 23 103/73 94 07/21/25 06:32 36.7 C 76 21 90 07/21/25 06:02 36.7 C 75 21 93 07/21/25 06:00 103/74 07/21/25 06:00 103/74 11/06/25 06:00 103/74 07/21/25 06:00 103/74 07/21/25 06:00 103/74 07/21/25 05:59 36.7 C 77 23 93 07/21/25 05:32 36.6 C 85 24 90 07/21/25 05:30 107/07/21/25 05:30 107/07/21/25 05:30 107/07/21/25 05:30 107/07/21/25 05:30 107/07/21/25 05:29 36.7 C 78 21 91 07/21/25 05:00 11207/21/25 05:00 11207/21/25 05:00 11207/21/25 05:00 11207/21/25 05:00 112/07/21/25 05:00 36.6 C 73 22 92 07/21/25 04:30 36.6 C 69 18 96 07/21/25 04:30 94/60 L 07/21/25 04:30 94/60 L 07/21/25 04:30 94/60 L 07/21/25 04:30 94/60 L 07/21/25 04:30 94/60 L 07/21/25 04:03 36.6 C 68 18 98 07/21/25 04:00 95/61 L 07/21/25 04:00 95/61 L 07/21/25 04:00 95/61 L 07/21/25 04:00 95/61 L 07/21/25 04:00 95/61 L 07/21/25 03:59 36.6 C 70 18 97 07/21/25 03:30 36.6 C 75 17 97 07/21/25 03:30 97/69 L 07/21/25 03:30 97/69 L 07/21/25 03:30 97/69 L 07/21/25 03:30 97/69 L 07/21/25 03:30 97/69 L 07/21/25 03:00 36.6 C 77 21 95 07/21/25 03:00 10707/21/25 03:00 107/07/21/25 03:00 10707/21/25 03:00 107/71 07/21/25 03:00 107/71 07/21/25 02:30 120/82 07/21/25 02:30 120/82 07/21/25 02:30 120/82 07/21/25 02:30 120/82 07/21/25 02:30 36.7 C 78 22 95 07/21/25 02:30 120/82 07/21/25 02:30 120/82 07/21/25 02:00 115/78 07/21/25 02:00 36.7 C 78 23 95 07/21/25 02:00 115/78 07/21/25 02:00 115/78 07/21/25 02:00 115/78 07/21/25 02:00 115/78 07/21/25 01:30 36.7 C 78 24 94 07/21/25 01:30 116/75 07/21/25 01:30 116/75 07/21/25 01:30 116/75 07/21/25 01:30 116/75 07/21/25 01:30 116/75 07/21/25 01:03 36.7 C 80 17 94 07/21/25 01:00 110/78 07/21/25 01:00 110/78 07/21/25 01:00 110/78 07/21/25 01:00 110/78 07/21/25 01:00 110/78 07/21/25 00:57 36.7 C 78 21 93 07/21/25 00:30 36.7 C 77 22 93 07/21/25 00:30 98/66 L 07/21/25 00:30 98/66 L 07/21/25 00:30 98/66 L 07/21/25 00:30 98/66 L 07/21/25 00:30 98/66 L 07/21/25 00:00 77 07/21/25 00:00 110/70 07/21/25 00:00 110/70 07/21/25 00:00 110/70 07/21/25 00:00 110/70 07/21/25 00:00 110/70 07/21/25 00:00 110/70 07/21/25 00:00 36.8 C 78 21 95
[2025-07-21 12:02] LABS: INR 1.5 (0.9-1.1); Prothrombin Time 15.4 Seconds (9.0-12.0)
[2025-07-21 12:05] LABS: Alanine Aminotransferase 60 U/L (7-52); Albumin Level 3.2 gm/dl (3.4-5.0); Bilirubin,Total 28.8 mg/dl (0.2-1.0); Total Protein 6.5 gm/dl (6.0-8.3)
[2025-07-21] MEDS: POTASSIUM CHLORIDE / WTR 20 MEQ/100 ML PLCT IV SCH ×2 (12:15→13:09)
--- NOTE | 2025-07-21 12:18 | Hospitalist Progress Note ---
Date of Service July 21, 2025 Assessment & Plan (1) Severe sepsis: Plan: Septic shock Acute pyelonephritis E. coli bacteremia Possible right renal abscess Patient presents to the hospital with septic shock secondary to E. coli rosa teremia. CT abdomen/pelvis on admission shows possible abscess in upper pole of right kidney. Blood culture on out of 4 positive for E. coli Repeat blood culture from 07/15no growth Improvement in hemodynamic status; off vasopressors since a.m. of July 20, 2025 Renal ultrasound on 07/20 does not show abscess. Plan to continue iv zosyn for now; will need at least 2 weeks of antiboitics. Decompensated cirrhosis/Hepatic encephalopathy--POA H/O MASLD Liver USD:Cirrhotic liver. No suspicious hepatic lesions. Slow flow within the main portal vein indicative of portal hypertension. Small amount of perihepatic ascites. No biliary ductal dilatation. No common bile duct calculi identified although distal common bile duct obscured. Cholelithiasis. Mild gallbladder wall thickening. However, no sonographic Copeland sign to strongly suggest acute cholecystitis. Total bilirubin in mid 20s; elevated ALT/AST/ALP MRCP- no intra or extrahepatic biliary duct dilatation. GI consulted for comanagement; deterioration of hepatic function likely secondary to multiorgan dysfunction Continue lactulose to titrate to 3-4 good bowel movements per day Also started on rifaximin Low-sodium diet Needs follow-up with hepatology Dr. Dorado on discharge Avoid hepatotoxic agents as able Severe pulmonary hypertension Severe tricuspid regurgitation Acute Hypoxic Respiratory Failure Possible Pneumonia --ECHO: Right ventricle severely dilated. Right ventricle systolic function is moderately reduced. Right atrium severely dilated. Left ventricular cavity is small. EF 65 to 70%. Flattened septum consistent with RV pressure/volume overload. Severe tricuspid regurgitation. Severe pulmonary hypertension is present. Compared to prior study, no significant change. Pulmonology is consulted for comanagement as patient reported shortness of breath. Chest x-ray shows bilateral infiltrates done on 07/20. Doxycycline added. Wean off oxygen as tolerated. Acute kidney injury on CKD stage III Possible Hepatorenal syndrome Creatinine up trended to 2.51 and is currently downtrending Nephrology on board Monitor kidney function Urine output reassuring Hypokalemiapotassium repleted Troponin elevation Likely due to renal dysfunction/sepsis Denies any chest pain Echo showed no wall motion abnormality Hyperglycemia HbA1c unreliable due to significant anemia Insulin sliding scale for now Monitor blood glucose levels Chronic pancytopenia secondary to liver disease Anemia of chronic disease --S/P 1 unit PRBCs Monitor H&H and transfuse as needed Vitamin D deficiency Started on vitamin D supplements Prolonged QTc Avoid QTc prolonging meds Monitor Past tobacco abuse As per records Metallic foreign body gastric lumen on CT scan Thought to be metallic clip Also documented on prior imaging, records DVT Px: SCDs Re: Thrombocytopenia, history of GI bleed CODE STATUS DNI DNR--ICU team discussed with patient and patient's family who agrees Disposition Discussed with pulmonology; they recommend transferring patient to higher level of care for pulmonary hypertension hepatology specialist. Transfer center contacted again. Time spent evaluating patient, direct bedside care, chart review, placing orders, interpretation of diagnostic studies, discussion with consultants, patient, and family members, as well as other required patient management ac tivities is 50 minutes Please note the above document was generated using voice recognition software. It may contain grammatical, syntax or spelling errors. Any formal questions or concerns about the content, text or information contained within the body of this dictation should be directly addressed to the provider for clarification Admission and Anticipated Discharge Date Admission Date: July 13, 2025 Subjective Patient seen and examined at bedside. She is comfortably sitting up on the bed; reports some shortness of breath at this time. No significant events overnight Review of Systems Review of Systems: All systems reviewed & are unremarkable except as noted in Subjective Physical Exam Physical Exam: Constitutional: Sitting up; appears comfortable. Icteric Respiratory: Decreased breath sounds at bilateral bases Cardiovascular: RRR, positive murmur, no edema Vessels: Abdomen: Slightly distended, nontender. Musculoskeletal: no cyanosis or clubbing, extremities motor strength 5/5 Neurologic: PERRL, EOMI, accommodation nl, no face palsy, no dysarthria CN's II- XI intact bilaterally and moves all extremities Results & Data Results & Data Vital Signs (Past 12 Hours) Vital Signs Temp Pulse Resp BP Pulse Ox O2 Del Method O2 Flow Rate 07/21/25 10:00 36.7 C 67 21 94/64 L 94 Nasal Cannula 2 07/21/25 09:59 36.8 C 07/21/25 08:42 36.7 C 74 22 102/72 94 Nasal Cannula 07/21/25 07:00 36.7 C 79 23 103/73 94 07/21/25 06:32 36.7 C 76 21 90 07/21/25 06:02 36.7 C 75 21 93 07/21/25 06:00 103/74 07/21/25 06:00 103/74 07/21/25 06:00 103/74 07/21/25 06:00 103/74 07/21/25 06:00 103/74 07/21/25 05:59 36.7 C 77 23 93 07/21/25 05:32 36.6 C 85 24 90 07/21/25 05:30 107/71 07/21/25 05:30 107/71 07/21/25 05:30 107/71 07/21/25 05:30 107/71 07/21/25 05:30 107/71 07/21/25 05:29 36.7 C 78 21 91 07/21/25 05:00 112/07/21/25 05:00 112/07/21/25 05:00 112/07/21/25 05:00 112/07/21/25 05:00 112/07/21/25 05:00 36.6 C 73 22 92 07/21/25 04:30 36.6 C 69 18 96 07/21/25 04:30 94/60 L 07/21/25 04:30 94/60 L 07/21/25 04:30 94/60 L 07/21/25 04:30 94/60 L 07/21/25 04:30 94/60 L 07/21/25 04:03 36.6 C 68 18 98 07/21/25 04:00 95/61 L 07/21/25 04:00 95/61 L 07/21/25 04:00 95/61 L 07/21/25 04:00 95/61 L 07/21/25 04:00 95/61 L 07/21/25 03:59 36.6 C 70 18 97 07/21/25 03:30 36.6 C 75 17 97 07/21/25 03:30 97/69 L 07/21/25 03:30 97/69 L 07/21/25 03:30 97/69 L 07/21/25 03:30 97/69 L 07/21/25 03:30 97/69 L 07/21/25 03:00 36.6 C 77 21 95 07/21/25 03:00 107/71 07/21/25 03:00 107/71 07/21/25 03:00 107/71 07/21/25 03:00 107/71 07/21/25 03:00 107/71 07/21/25 02:30 120/82 07/21/25 02:30 120/82 07/21/25 02:30 120/82 07/21/25 02:30 120/82 07/21/25 02:30 36.7 C 78 22 95 07/21/25 02:30 120/82 07/21/25 02:30 120/82 07/21/25 02:00 115/78 07/21/25 02:00 36.7 C 78 23 95 07/21/25 02:00 115/78 07/21/25 02:00 115/78 07/21/25 02:00 115/78 07/21/25 02:00 115/78 07/21/25 01:30 36.7 C 78 24 94 07/21/25 01:30 116/75 07/21/25 01:30 116/75 07/21/25 01:30 116/75 07/21/25 01:30 116/75 07/21/25 01:30 116/75 07/21/25 01:03 36.7 C 80 17 94 07/21/25 01:00 110/78 07/21/25 01:00 110/78 07/21/25 01:00 110/78 07/21/25 01:00 110/78 07/21/25 01:00 110/78 07/21/25 00:57 36.7 C 78 21 93 07/21/25 00:30 36.7 C 77 22 93 07/21/25 00:30 98/66 L 07/21/25 00:30 98/66 L 07/21/25 00:30 98/66 L 07/21/25 00:30 98/66 L 07/21/25 00:30 98/66 L
--- NOTE | 2025-07-21 15:24 | Discharge Summary ---
Date of Service July 21, 2025 Admission HPI Per Admitting Provider History obtained from patient and records. 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 Last [facility] confinement March 2025 for UGIB. Patient transferred to [facility] [place] further evaluation. EGD at facility showed grade 1 esophageal varices and portal hypertensive gastropathy. Recent ER visit 2 weeks ago for symptomatic anemia without obvious bleed at home. Hemoglobin 5 at time of consultation. Patient transfused 2 units PRBC at the ER. 1 week history of dysuria symptoms with 1 episode of hematuria. Denies abdominal or flank pain. Poor appetite. Generalized weakness. Shortness of breath from being weak. Denies chest pain, cough, or fluid retention. Denies abdominal or flank pain. Patient compliant with home medications. SBP 90s upon arrival at the ER. Lowest O2 sats of 80s documented at the ER. Zosyn administered at the ER. Admission Exam Per Admitting Provider GENERAL: Slightly uncomfortable, no respiratory distress SKIN: Normal color, warm HEENT: Pale palpebral conjunctivae, no ptosis, dry buccal mucosa, nasal cannula in place NECK : Supple, no tenderness CHEST : Decreased breath sounds, no tenderness HEART : Tachycardic, no obvious murmurs ABDOMEN: Some distention, nontender EXTREMITIES : Minimal LE swelling, no LE tenderness, palpable pulses, no other conspicuous deformities noted NEUROLOGIC : Coherent, no facial asymmetry, no other gross focality Principal Diagnosis Septic shock Acute pyelonephritis E. coli bacteremia Possible right renal abscess Discharge Exam Constitutional: Sitting up; appears comfortable. Icteric Respiratory: Decreased breath sounds at bilateral bases Cardiovascular: RRR, positive murmur, no edema Vessels: Abdomen: Slightly distended, nontender. Musculoskeletal: no cyanosis or clubbing, extremities motor strength 5/5 Neurologic: PERRL, EOMI, accommodation nl, no face palsy, no dysarthria CN's II- XI intact bilaterally and moves all extremities Discharge Data Allergies Allergy/AdvReac Type Severity Reaction Status Date / Time gluten Allergy Unknown Unknown Verified 07/13/25 21:48 Consultations 07/13/25 19:21 ED Decision to Admit Stat 07/13/25 21:48 Consult Gastroenterology Routine 07/14/25 15:25 Consult Nephrology Routine 07/14/25 22:41 Consult Professor Of Latin [employer] Studies Routine 07/18/25 17:45 Burn CD for patient Stat 07/21/25 07:29 Consult Pulmonology Routine Ordered Studies 07/13/25 17:22 CT abd pelvis IV con only Stat CT angio chest PE protocol Stat CT head/brain wo con Stat 07/15/25 12:48 CT Abdomen and Pelvis [CT abd pelvis wo con] Stat 07/19/25 08:28 US liver Urgent 07/20/25 10:25 MR MRCP Stat 07/20/25 13:43 US Renal Bladder [US renal/blad retro comp] Routine Hospital Course (1) Severe sepsis: Septic shock Acute pyelonephritis E. coli bacteremia Possible right renal abscess Patient presents to the hospital with septic shock secondary to E. coli bacteremia. CT abdomen/pelvis on admission shows possible abscess in upper pole of right kidney. Blood culture on out of 4 positive for E. coli Repeat blood culture from 07/15no growth Improvement in hemodynamic status; off vasopressors since a.m. of July 20, 2025 Renal ultrasound on 07/20 does not show abscess. Plan to continue iv zosyn for now; will need at least 2 weeks of antiboitics. Decompensated cirrhosis/Hepatic encephalopathy--POA H/O MASLD Liver USD:Cirrhotic liver. No suspicious hepatic lesions. Slow flow within the main portal vein indicative of portal hypertension. Small amount of perihepatic ascites. No biliary ductal dilatation. No common bile duct calculi identified although distal common bile duct obscured. Cholelithiasis. Mild gallbladder wall thickening. However, no sonographic Copeland sign to strongly suggest acute cholecystitis. Total bilirubin in mid 20s; elevated ALT/AST/ALP MRCP- no intra or extrahepatic biliary duct dilatation. GI consulted for comanagement; deterioration of hepatic function likely secondary to multiorgan dysfunction Continue lactulose to titrate to 3-4 good bowel movements per day Also started on rifaximin Low-sodium diet Needs follow-up with hepatology Dr. Dorado on discharge Avoid hepatotoxic agents as able Severe pulmonary hypertension Severe tricuspid regurgitation Acute Hypoxic Respiratory Failure Possible Pneumonia --ECHO: Right ventricle severely dilated. Right ventricle systolic function is moderately reduced. Right atrium severely dilated. Left ventricular cavity is small. EF 65 to 70%. Flattened septum consistent with RV pressure/volume overload. Severe tricuspid regurgitation. Severe pulmonary hypertension is present. Compared to prior study, no significant change. Pulmonology is consulted for comanagement as patient reported shortness of song th. Chest x-ray shows bilateral infiltrates done on 07/20. Doxycycline added. Wean off oxygen as tolerated. Acute kidney injury on CKD stage III Possible Hepatorenal syndrome Creatinine up trended to 2.51 and is currently downtrending Nephrology on board Monitor kidney function Urine output reassuring Hypokalemiapotassium repleted Troponin elevation Likely due to renal dysfunction/sepsis Denies any chest pain Echo showed no wall motion abnormality Hyperglycemia HbA1c unreliable due to significant anemia Insulin sliding scale for now Monitor blood glucose levels Chronic pancytopenia secondary to liver disease Anemia of chronic disease --S/P 1 unit PRBCs Monitor H&H and transfuse as needed Vitamin D deficiency Started on vitamin D supplements Prolonged QTc Avoid QTc prolonging meds Monitor Past tobacco abuse As per records Metallic foreign body gastric lumen on CT scan Thought to be metallic clip Also documented on prior imaging, records DVT Px: SCDs Re: Thrombocytopenia, history of GI bleed CODE STATUS DNI DNR--ICU team discussed with patient and patient's family who agrees Disposition Discussed with pulmonology; they recommend transferring patient to higher level of care for pulmonary hypertension hepatology specialist. Patient was accepted at [facility] and was transferred for further management. Please note the above document was generated using voice recognition software. It may contain grammatical, syntax or spelling errors. Any formal questions or concerns about the content, text or information contained within the body of this dictation should be directly addressed to the provider for clarification Total Time Total Time Spent Total Time Spent (In Minutes): 65 Total Time Includes: Examination of the Patient, Discharge Planning, Medication Reconciliation, Communication With Other Providers and Other Discharge Plan Discharge Items Patient Disposition: Transfer Acute Care Hospital Reason For Visit: HYPOTENSION Discharge Diagnosis: Septic shock Acute pyelonephritis E. coli bacteremia Renal abscess Decompensated cirrhosis Hepatic encephalopathy Hepatorenal syndrome Severe pulmonary hypertension Acute respiratory failure with hypoxia Pancytopenia Vitamin D deficiency Condition on Discharge: Fair Activity: Per Instructions section Exercise/Sports: As tolerated Non-emergency contact: Primary Care Provider and Specialist Call non-emergency contact if: you have any medication questions, your symptoms worsen, your pain is concerning for you and you have a fever Follow-up/Referrals: Sarah Galaviz, [Primary Care Provider] - Diet: Carb Consistent or DM2 Addtl Attending Provider Instructions: -- Follow-up with Dr.Tomeka Montoya at [facility] for further evaluation and management Seek immediate medical attention if your symptoms reoccur or worsen Please review medication list provided on discharge for any medication changes as instructed. Please call if you have any questions or problems. 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 Instructions: Date of Service: July 19, 2025 Current Inpatient Medications Dextrose (Dextrose 50% 50 Ml Syringe) 25 - 50 ml IV UD PRN; Protocol PRN Reason: Hypoglycemia Protocol Stop: 08/14/25 12:00 Ergocalciferol (Ergocalciferol 1250 Mcg (50,000 Units) Cap) 1,250 mcg PO Fr@ 0900 GEOFF Stop: 08/14/25 10:59 Last Admin: 07/15/25 12:03 Dose: 1,250 mcg Ferrous Sulfate (Ferrous Sulfate 325 Mg Tab) 325 mg PO DAILY GEOFF Stop: 08/13/25 08:59 Last Admin: 07/19/25 08:00 Dose: 325 mg Fluticasone Propionate (Fluticasone Propionate Na Spr 16 Gm Btl) 2 sprays NA QAM GEOFF Stop: 08/13/25 08:59 Last Admin: 07/19/25 08:00 Dose: 2 sprays Folic Acid (Folic Acid 1 Mg Tab) 1 mg PO DAILY GEOFF Stop: 08/13/25 08:59 Last Admin: 07/19/25 08:00 Dose: 1 mg Glucagon (Glucagon For Inj 1 Mg Vial) 1 mg SQ UD PRN; Protocol PRN Reason: Hypoglycemia Protocol Stop: 08/14/25 12:00 Glucose (Glucose 40% Gel 15 Gm Tube) 15 - 30 gm PO UD PRN; Protocol PRN Reason: Hypoglycemia Protocol Stop: 08/14/25 12:00 Glucose (Glucose 10 Tab/Tube) 4 - 8 tab PO UD PRN; Protocol PRN Reason: Hypoglycemia Protocol Stop: 08/14/25 12:00 Promethazine HCl (Phenergan) 6.25 mg in 50.25 mls @ 201 mls/hr IV Q6H PRN PRN Reason: Nausea And Vomiting Stop: 08/12/25 20:27 Last Infusion: 07/18/25 11:52 Dose: Infused Norepinephrine Bitartrate (Levophed/D5w) 4 mg in 250 mls @ 2.828 mls/hr IV .Q24H [facility]; Protocol Stop: 08/16/25 10:14 Last Titration: 07/19/25 08:09 Dose: 0.01 mcg/kg/min, 2.8 mls/hr Piperacillin Sod/Tazobactam Sod (Zosyn) 4.5 gm in 100 mls @ 25 mls/hr IV Q8H [facility]; Protocol Stop: 08/02/25 09:59 Last Admin: 07/19/25 10:17 Dose: 25 mls/hr Insulin Aspart (Insulin Aspart Per Unit Charge) 0 units SC ACHS [facility] Stop: 08/14/25 16:29 Last Admin: 07/19/25 07:59 Dose: 1 units Lactulose (Lactulose Syrup 20 Gm/30 Ml Udc) 20 gm PO BID [facility] Stop: 08/12/25 21:44 Last Admin: 07/19/25 08:01 Dose: 20 gm Levalbuterol HCl (Levalbuterol 1.25 Mg/3 Ml Neb) 1.25 mg NEB Q6H PRN PRN Reason: Shortness Of Breath Or Wheezing Stop: 08/13/25 17:52 Last Admin: 07/16/25 19:45 Dose: 1.25 mg Miscellaneous (Carbohydrates For Hypoglycemia ) 15 - 30 gm PO UD PRN PRN Reason: Hypoglycemia Protocol Stop: 08/14/25 12:00 Multivitamins (Multivitamin Tab) 1 tab PO QAM [facility] Stop: 08/13/25 08:59 Last Admin: 07/19/25 08:01 Dose: 1 tab Pantoprazole Sodium (Pantoprazole 40 Mg Tab) 40 mg PO QAM [facility] Stop: 08/13/25 08:59 Last Admin: 07/19/25 08:01 Dose: 40 mg Rifaximin (Rifaximin 550 Mg Tablet) 550 mg PO BID [facility] Stop: 08/13/25 22:29 Last Admin: 07/19/25 08:01 Dose: 550 mg Sildenafil Citrate (Sildenafil Citrate 20 Mg Tablet) 20 mg PO TID GEOFF Stop: 08/16/25 16:34 Last Admin: 07/19/25 08:02 Dose: 20 mg Pending Studies at Discharge: Yes Studies:: Blood cultures Stand-Alone Forms: My [facility] Skilled Items Patient informed of condition?: Yes DNR: Yes Discharge Level of Care: Other Communicable Disease: No Discharge Prognosis: Deteriorating Lines: Peripheral IV Urinary Catheter: Yes Medications and DC Order Prescriptions: Continued multivitamin Tablet 1 tab PO QAM pantoprazole 40 mg tablet,delayed release (DR/EC) 40 mg PO QAM fluticasone propionate 50 mcg/actuation [place],Suspension 2 spray INTRANASAL QAM Rx Instructions: administer into each nostril Uptravi 200 mcg tablet 200 mcg PO TID Uptravi 200 mcg (140)- 800 mcg (60) tablets,dose pack 1 ea PO UD Rx Instructions: TITRATE PACK zinc glycinate 20 mg Capsule 20 mg PO DAILY furosemide 40 mg tablet 40 mg PO DAILY lactulose [Constulose] 10 gram/15 mL solution 30 ml PO TID sildenafil (pulm.hypertension) 20 mg tablet 40 mg PO TID vitamin A 3,000 mcg (10,000 unit) Capsule 3,000 mcg PO DAILY ferrous sulfate 325 mg (65 mg iron) Tablet 325 mg PO DAILY folic acid 1 mg tablet 1 mg PO DAILY Discharge Orders: Discharge Order (Routine); Ordered 07/21/25 Ordered By: Ghulam Valencia Admission Data Admit Date/Time: 07/13/25 19:49 Attending Provider: Ghulam Valencia Admit Provider: Leonel Miller Primary Care Provider: Sarah Galaviz Other Providers: Leonel Miller; Mercy Hammond; Nader Bethea; Jenna Mcgregor; Julianne Yadav; Abby Beasley; Maddy Ledbetter; Chava Nixon; Isiah Cabral; Frances Quiroz; Mishel Piedra; Maya Dyer; Lyly Potter; Luz Douglass; Favian Escalante; Rudi Matias; Bjorn De Leon; Evangelina Dorado; Des Miller Jr; Jerad Fall.; Keven Dye; Walter Feng; Yany Bustamante; Maged Bernardo I; Brionna Denson; Say Tolentino; Barrera Vasquez; Clay Whitaker; Marcos Valdez; Federica Gonzales; Maya Salgado; Clarke Caceres; Blanco Fierro Other Interventions: Discharge Summary Assessment (RN) Last Done: 07/21/25 18:21
[2025-07-21 17:10] VITALS: RESP 24
[2025-07-21 17:17] LABS: Anion Gap 9.0 (3-11); Blood Urea Nitrogen 52.0 mg/dl (6-23); Calcium 9.0 mg/dl (8.6-10.3); Carbon Dioxide 23.0 mmol/L (21-32); Chloride 110.0 mmol/L (98-107); Creatinine Clr Calc Pharmacy 51.1 ml/min; Glucose 105.0 mg/dl (70-99(Fasting)); Potassium 3.5 mmol/L (3.5-5.1); Sodium 142.0 mmol/L (136-145)
[2025-07-21 18:22] VITALS: BP 102/71
[2025-07-21 20:11] VITALS: PULSE 78; O2SAT 92
== END 2025-07-21 19:54 | disposition short-term general hospital (02) | DRG 871 ==
LOC: ED 16:42 → SUATTDRO 19:49 → 2S 19:49 → 1E 07-14 23:01